=== PATIENT | male | born 1945 | race Caucasian/White ===

== ENCOUNTER → 2021-01-29 10:09 | Outpatient (CLI) | payer MEDICARE, SELFPAY | PROVIDERS: Visit Provider Urology | DX: Z12.5 Encounter for screening for malignant neoplasm of prostate (principal) | CPT/HCPCS: 36415; 84153; G0103 ==

== ENCOUNTER 2021-07-11 05:40 | Day surgery (SDC) | payer MEDICARE, SELFPAY ==
[2021-07-11 06:36] VITALS: BP 142/59; PULSE 69; RESP 16; TEMP 36.3; O2SAT 97; BMI 33.7
[2021-07-11] MEDS: Lactated Ringers 1,000 ML 30 ML IV (06:49)
--- NOTE | 2021-07-11 08:00 | PROS_PTH ---
PATIENT: ASHLEY LOPEZ LOC: [facility] – [place] U#:[id number] AGE/SX: 76/M ROOM: RE07/11/[address]: Dr. Josafat Nolasco MD : 1945 BED: DIS: 07/11/2021 SPEC #: [id number] RECD: 07/11/21 09:37 STATUS: GINA RINCON #: [id number] RADHA: 07/11/21 08:[address]: Josafat Nolasco DEPT: SURGICAL PATHOLOGY RECD BY: Lynn Hudson ENTERED: 07/11/21 11:05 SP TYPE: TURP OTHR DR: Dr. Lowell Johnson MD Tissues: Prostate, NOS Procedures: Surgery Specimen Level IV HEADER OPERATION: Cysto, TUR prostate, [facility] PRE-OP DIAGNOSIS: Urinary retention TISSUE SUBMITTED: Prostate tissue MICROSCOPIC DIAGNOSIS Prostate, transurethral resection: Benign nodular hyperplasia, glandular and stromal types. Benign urothelium with associated mild chronic inflammation. AM:elio 07/12/2021 MICROSCOPIC DESCRIPTION Slides are reviewed. GROSS DESCRIPTION Received is one container labeled with the patient's name and designated prostate tissue. The specimen consists of multiple irregular fragments of pink-carlisle, rubbery, soft tissue that in aggregate weigh 13.7 gm and measure in aggregate 5 x 4.5 x 2 cm. Family Service Assistant tissue is submitted in ten cassettes. / SJ:elio 07/11/2021 TC:3 CPT: 30200
--- NOTE | 2021-07-11 09:10 | PCM.HP.STD ---
HPI - General HPI Narrative ASHLEY LOPEZ, is a 76 M who presents for a turp for retention of urine. PFSH Medical History (Updated 07/04/21 @ 09:15 by Sandra Charles) Back pain Cardiology follow-up encounter CPAP (continuous positive airway pressure) dependence History of heart attack History of stress test Hypertension Sleep apnea Home Medications amlodipine 10 mg PO DAILY 07/04/21 [History Last Taken Unknown] ascorbic acid (vitamin C) [Vitamin C] 500 mg PO DAILY 07/04/21 [History Last Taken Unknown] atorvastatin 40 mg PO DAILY 07/04/21 [History Last Taken Unknown] cyanocobalamin (vitamin B-12) [Vitamin B-12] 1,000 mcg PO DAILY 07/04/21 [History Last Taken Unknown] duloxetine 30 mg PO BID 07/04/21 [History Last Taken Unknown] metoprolol tartrate 25 mg PO BID 07/04/21 [History Last Taken Unknown] ciprofloxacin HCl [Cipro] 500 mg PO BID #10 tab 07/11/21 [Rx Last Taken Unknown] Allergy/AdvReac Type Severity Reaction Status Date / Time Penicillins [PCN] Allergy Other Verified 07/11/21 06:27 Surgical History (Updated 07/04/21 @ 09:15 by Sandra Charles) History of bunionectomy History of cardiac catheterization History of carotid endarterectomy History of open heart surgery Hx laparoscopic cholecystectomy Social History Smoking Status: Never smoker Vital Signs Vital Signs Vital Signs: 07/11/21 06:36 Temperature 97.4 F L Temperature Source Temporal Pulse Rate 69 Respiratory Rate 16 Respiratory Pattern Normal Blood Pressure 142/59 H Blood Pressure Mean 86 Blood Pressure Source Monitor Blood Pressure Position Semi-Fowlers Blood Pressure Location Right Arm Pulse Ox 97 Oxygen Delivery Method Room Air Weight Weight: 89 kg Body Mass Index (BMI) 33.7
--- NOTE | 2021-07-11 09:11 | DCINST_ITS ---
Discharge Instructions Diet Discharge Diet: No restrictions Activity Discharge Activity: May Not Drive (while taking narcotic pain medications.) Dressing / Incision Call your doctor if you observe: Fever of 101 or Higher Catheter: Santiago to leg bag and Santiago to large bag Drain: [place] Follow Up Care Please Follow Up With: Josafat Nolasco MD When: Call [phone] for an appointment Test Results: Test results from this visit will be discussed in further detail at your follow-up appointment, if applicable. Discharge Plan Admission Primary Reason for Your Visit: TURMorales Attending Provider: Josafat Nolasco Primary Care Provider: Lowell Johnson Discharge Orders/Prescriptions Prescriptions: New ciprofloxacin HCl [Cipro] 500 mg tablet 500 mg PO BID Qty: 10 RF: 0 Continued atorvastatin 40 mg tablet 40 mg PO DAILY RF: 0 cyanocobalamin (vitamin B-12) [Vitamin B-12] 1,000 mcg Tablet 1,000 mcg PO DAILY RF: 0 ascorbic acid (vitamin C) [Vitamin C] 500 mg Tablet 500 mg PO DAILY RF: 0 amlodipine 10 mg tablet 10 mg PO DAILY RF: 0 metoprolol tartrate 25 mg tablet 25 mg PO BID RF: 0 duloxetine 30 mg capsule,delayed release(DR/EC) 30 mg PO BID RF: 0 Discontinued aspirin 325 mg Tablet 325 mg PO DAILY RF: 0 tamsulosin 0.4 mg capsule 0.4 mg PO DAILY RF: 0 finasteride 5 mg tablet 5 mg PO DAILY RF: 0 Referrals / Follow Up: Lowell Johnson MD [Primary Care Provider] - Josafat Nolasco MD [STAFF PHYSICIAN] - Disposition Disposition (needs filled in before D/C Order can be placed): Home, Self Care
--- NOTE | 2021-07-11 09:11 | OP.PCM_ITS ---
Report of Operation Date of Procedure: 07/11/21 Pre-Operative Diagnosis: bph with retention of urine Post-Operative Diagnosis: same Surgery/Procedure Performed:: TURP Description of Surgical Findings:: In the preoperative setting I discussed with the patient how the surgery would be done with expect afterwards. We discussed how a prostate resection is done and we discussed the risk of the surgery including, bleeding, infection, retrograde ejaculation, changes with ejaculation or intercourse,. We discussed the possibility that the resection of the prostate may not alleviate his urinary symptoms. We discussed the small risk of developing scar tissue along the urethral channel and strictures. We also discussed the chance of the prostate could grow back and he may need further surgery or treatment in the future for prostate problems. Patient was taken back to the operating room, timeout procedure was performed, he was identified and marked and placed on the operating room table. He underwent general anesthesia. He was placed in dorsolithotomy position. Penis and testicles were prepped and draped in usual sterile fashion. Went into the bladder using the visual obturator with a resectoscope. Once inside the bladder identified the right and left ureteral orifice. I then identified the prostate and the anatomy of the prostate. I marked out the area of the sphincter and the verumontanum was identified. I then proceeded with the prostate resection first resected the median lobe. And then resected the right lobe of the prostate. Then to resect the left lobe of the prostate. I then resected the apical tissue of the prostate. This was a complete resection of all obstructive tissue to improve voiding and relieve obstruction. I then made sure that there was no injury to the sphincter or the verumontanum was still intact. At the end of the resection all the chips were Ellik out of the bladder. I then identified the left and right ureteral orifice and these were confirmed to be in good position and effluxing and not injured. The resectoscope was removed, a 20 Kinyarwanda catheter was placed placed. And the urine was fairly light pink color and draining normally. He was taken back to the PACU in good condition. Surgeon: racheal Type of Anesthesia: General Drains: 20 fr ulloa Admit VTE Documentation VTE Present on Admission: No VTE Mechan Device Prophylaxis: SCD's VTE Pharm Prophylaxis ordered?: No Reason prophylaxis not ordered:: Treatment Not Indicated
[2021-07-11 09:18] VITALS: BP 126/59; BP 142/59; PULSE 65; RESP 16; TEMP 36.1; O2SAT 97
[2021-07-11 09:30] VITALS: BP 142/59; BP 144/60; PULSE 70; RESP 16; O2SAT 98
[2021-07-11] MEDS: Lactated Ringers 1,000 ML 100 ML IV (09:33)
[2021-07-11 09:45] VITALS: BP 141/62; BP 142/59; PULSE 70; RESP 16; O2SAT 91
[2021-07-11 09:50] VITALS: BP 131/65; BP 142/59; PULSE 68; RESP 16; TEMP 35.7; O2SAT 92
[2021-07-11 10:19] VITALS: BP 130/60; BP 142/59; PULSE 70; RESP 18; TEMP 36.1; O2SAT 94
== END 2021-07-11 23:59 | disposition home or self-care (01) ==
LOC: SDC 05:44 → AC 05:44
PROVIDERS: PCP Family Medicine; Referring Provider Urology; Visit Provider Urology
PROC: (CPT 52601; principal; 2021-07-11 07:50)
DX: N40.1 Benign prostatic hyperplasia with lower urinary tract symptoms (principal); N13.8 Other obstructive and reflux uropathy; R33.8 Other retention of urine; I10 Essential (primary) hypertension; I44.4 Left anterior fascicular block; I25.10 Atherosclerotic heart disease of native coronary artery without angina pectoris; I65.23 Occlusion and stenosis of bilateral carotid arteries; I25.2 Old myocardial infarction; G47.30 Sleep apnea, unspecified; Z95.1 Presence of aortocoronary bypass graft; Z79.82 Long term (current) use of aspirin; Z79.899 Other long term (current) drug therapy
CPT/HCPCS: 52601; 00914; 88305; J7120; J2405

== ENCOUNTER → 2022-12-02 | Outpatient (CLI) | payer MEDICARE, SELFPAY ==
--- NOTE | 2022-12-02 08:11 | CDU_ITS ---
Reason For Study: Carotid Stenosis Rt. Velocities/BP Lt. Velocities/BP Prox CCA 58/8 cm/sec. Prox CCA 81/15 cm/sec. Mid CCA 65/10 cm/sec. Mid CCA 81/18 cm/sec. Dist CCA 62/12 cm/sec. Dist CCA 70/15 cm/sec. Prox ICA 138/27 cm/sec. Prox ICA 100/23 cm/sec. Mid ICA 131/23 cm/sec. Mid ICA 93/23 cm/sec. Dist ICA 99/18 cm/sec. Dist ICA 88/24 cm/sec. Rt. ICA/CCA = 2.1. Lt. ICA/CCA = 1.2. Prox ECA 95/6 cm/sec. Prox ECA 114/8 cm/sec. Rt. Vert. 59/8 cm/sec. Lt. Vert. 43/8 cm/sec. Right Extracranial There is intimal thickening but no significant atherosclerotic plaque noted in the right common carotid artery. There is heterogeneous, irregular atherosclerotic plaque noted in the right internal carotid artery. There is intimal thickening but no significant atherosclerotic plaque noted in the right external carotid artery. Antegrade flow is noted in the right vertebral artery. Left Extracranial There is heterogeneous, smooth atherosclerotic plaque noted in the left common carotid artery. There is heterogeneous, irregular atherosclerotic plaque noted in the left internal carotid artery. There is heterogeneous, irregular atherosclerotic plaque noted in the left external carotid artery. Antegrade flow is noted in the left vertebral artery. Procedure Carotid Duplex [id number]. This is a Carotid Duplex examination using B-mode, color flow and specral Doppler. Exam performed in department. VL/Carotid Duplex Ultrasound Interpretation Summary Moderate (50-69%) stenosis right extracranial internal carotid. Mild (<50%) stenosis left extracranial internal carotid. Patent and antegrade vertebrals bilaterally. Ordering Physician: Canelo Garcia Referring Physician: Brooks Johnson Performed By: Breonna Clark, RDCS, RVT
== END | disposition home or self-care (01) ==
LOC: CVS 08:11
PROVIDERS: PCP Family Medicine; Referring Provider Internal Medicine Cardiovascular Disease; Visit Provider Internal Medicine Cardiovascular Disease
DX: I25.10 Atherosclerotic heart disease of native coronary artery without angina pectoris (principal); I65.23 Occlusion and stenosis of bilateral carotid arteries
CPT/HCPCS: 93880

== ENCOUNTER → 2022-12-09 | Outpatient (CLI) | payer MEDICARE, SELFPAY ==
--- NOTE | 2022-12-09 06:51 | ECHOCS_ITS ---
Reason For Study: CAD/ASHD Procedure This was a 2D Doppler, Color Flow transthoracic echocardiogram. The study was technically difficult. Contrast injection was performed. Exam performed in department. Left Ventricle Normal LV size. Left ventricular systolic function is normal. The estimated ejection fraction is 60 %. Stage 1 diastolic dysfunction. No regional wall motion abnormalities noted. Right Ventricle Normal RV size. Normal systolic function. Atria Normal left atrium. Normal right atrium. Tricuspid Valve Normal tricuspid valve. Mild to moderate (1-2+) tricuspid valve insufficiency. Pulmonary artery systolic pressure is 42 mmHg. Pulmonic Valve Normal pulmonic valve. Great Vessels Normal aortic root. The pulmonary artery is normal size. Normal inferior vena cava. Pericardium/Pleural No pericardial effusion. Medication 22 gauge I.V. with prn adaptor inserted into right arm. Diluted definity 2ml given slow IV push to enhance endocardial definition. MMode/2D Measurements & Calculations LVIDd: 4.4 cm IVSd: 0.81 cm LA dimension: 4.4 cm LVIDs: 3.2 cm LVPWd: 0.81 cm FS: 27.3 % LAV(MOD-sp4): 53.1 ml LA A4 area: 18.3 cm2 RA A4 area: 17.7 cm2 Time Measurements MV dec time: 0.14 sec Doppler Measurements & Calculations MV E max brooks: 70.9 cm/sec Lat Peak E' Brooks: 10.6 cm/sec Med Peak E' Brooks: 6.3 cm/sec MV A max brooks: 84.2 cm/sec E/E' lat: 6.7 E/E' med: 11.3 MV E/A: 0.84 MV V2 max: 116.5 cm/sec MV P1/2t max brooks: 94.1 cm/sec Ao V2 max: 125.3 cm/sec MV max P.4 mmHg MV P1/2t: 61.8 msec Ao max P.3 mmHg MV V2 mean: 55.3 cm/sec Ao V2 mean: 83.8 cm/sec MV mean P.5 mmHg MV dec slope: 446.4 cm/sec2 Ao mean P.2 mmHg MV V2 VTI: 33.9 cm MVA(P1/2t): 3.6 cm2 Ao V2 VTI: 23.9 cm AV (velocity ratio): 0.90 LV V1 max: 101.8 cm/sec PA V2 max: 123.5 cm/sec TR max brooks: 310.0 cm/sec LV V1 max P.1 mmHg PA V2 mean: 76.6 cm/sec TR max P.4 mmHg LV V1 mean P.1 mmHg LV V1 mean: 68.8 cm/sec LV V1 VTI: 21.6 cm ECHO/Echo Complete W/ Contrast Interpretation Summary Normal LV size. Left ventricular systolic function is normal. The estimated ejection fraction is 60 %. Stage 1 diastolic dysfunction. Pulmonary artery systolic pressure is 42 mmHg. Contrast injection was performed. Ordering Physician: Canelo Garcia Referring Physician: Canelo Garcia Performed By: Nehemiah Fernandez RCS
--- NOTE | 2022-12-09 12:17 | STRESSREP ---
Stress Test Report Exercise myocardial perfusion stress test. 77-year-old man with a history of coronary artery disease Stress protocol: Resting EKG demonstrates normal sinus rhythm with a rate of 67 bpm resting blood pressure is 152/80 mmHg. right bundle branch block is noted. The patient exercised according to the regular Jar[place] protocol for a total duration of 3 minutes and 9 seconds attaining a maximum heart rate of 134 bpm which was 92% of maximum predicted heart rate; the maximum workload was 4.9 metabolic equivalents. At rest there were no ST or T wave changes noted to suggest ischemia and at peak exercise ST elevation was noted in aVR in lead V1 and [address] depression noted in leads II and aVF V5 and V6 suggestive of ischemia. Frequent premature ventricular complexes were noted. No clinical angina was noted the test was terminated due to the target heart rate being achieved/fatigue as well as shortness of breath. The peak blood pressure was 210/62 mmHg. Rate-pressure product was 23,900. Myocardial perfusion protocol. 14.2 mCi of technetium 99m sestamibi was injected at rest. The patient exercised according to regular Jar[place]o protocol for total duration of 3 minutes and 9 seconds and at peak exercise 44.1 mCi of technetium 99m sestamibi was injected stress images were obtained stress and rest images were reconstructed in comparing the short axis vertical long and horizontal long axis. Gated images were also obtained. Perfusion SPECT analysis: Review of the stress images demonstrate normal uptake of tracer noted in all areas of the myocardium except for the inferior wall with reduced perfusion in the moderate sized zone. The resting images similarly demonstrate normal uptake of tracer noted in all areas of the myocardium. The above is suggestive of mid inferior ischemia. Gated SPECT analysis: The gated ejection fraction is 60%. Conclusion: Abnormal exercise myocardial perfusion stress test at a low workload with inferior ischemia present Preserved ejection fraction.
== END | disposition home or self-care (01) ==
PROVIDERS: PCP Family Medicine; Referring Provider Internal Medicine Cardiovascular Disease; Visit Provider Internal Medicine Cardiovascular Disease
DX: I25.10 Atherosclerotic heart disease of native coronary artery without angina pectoris (principal)
CPT/HCPCS: 78452; 93017; 93306; A9500; Q9957; A4216; C8929

== ENCOUNTER 2022-12-17 06:34 | Day surgery (SDC) | payer MEDICARE, SELFPAY ==
[2022-12-13 13:30] LABS: Absolute Lymphocyte Count 1.83 X10^3/uL (0.83-4.51); Absolute Neutrophil Count 3.6 X10^3/uL (2.0-7.7); Basophil# 0.02 X10^3/uL; Basophil% 0.3 % (0-1); Eosinophil# 0.06 X10^3/uL; Hematocrit 44.2 % (40-54); Hemoglobin 14.2 g/dL (13.0-16.5); Lymphocyte # 1.83 X10^3/ul (0.83-4.51); Lymphocyte % 30.2 % (19-41); Mean Corp Hgb Conc 32.1 g/dL (32-36); Mean Corpuscular Hgb 29.2 pg (27.0-32.0); Mean Corpuscular Volume 90.8 fL (80-94); Mean Platelet Vol. 9.6 fl (6.2-12.0); Monocyte# 0.58 X10^3/uL; Monocyte% 9.6 % (0-10); NRBC Flagged by Analyzer 0 % (0-5); Neutrophil # 3.55 X10^3/uL (2.7-7.7); Neutrophil % 58.6 % (47-70); Platelet Count 171 K/mm3 (150-450); RBC Distribution Width CV 11.9 % (11.6-14.6); RBC Distribution Width SD 39.6 fl (35.1-43.9); Red Blood Count 4.87 M/mm3 (4.6-6.2); White Blood Count 6.1 K/mm3 (4.4-11.0)
[2022-12-13 13:41] LABS: Prothrombin Time (Protime)PT. 13.3 SECONDS (11.7-14.9)
[2022-12-13 13:43] LABS: Partial Thromboplast Time 31.3 Seconds (24.1-36.2)
[2022-12-13 13:59] LABS: Anion Gap 6 (5-15); BUN 23 mg/dL (7-18); BUN/Creat Ratio 17.8 RATIO (10-20); Calcium,Total 8.8 mg/dL (8.5-10.1); Chloride 106 mmol/L (98-107); Creatinine, Serum 1.29 mg/dL (0.70-1.30); EST Glomerular Filtration Rate 58 mL/min (>60); Est Glom Filt Rate - Afr Amer 70 mL/min (>60); Glucose 91 mg/dL (74-106); Potassium 4.3 mmol/L (3.5-5.1); Sodium Level 140 mmol/L (136-145)
[2022-12-16 07:17] VITALS: BMI 34.8
--- NOTE | 2022-12-17 09:04 | CL.D_ITS ---
Patient Name: ASHLEY LOPEZ Study Date: 12/17/2022 Performing: Canelo Garcia MD Ht: 64 inches 162.56 cm : 1945 Wt: 203 lbs 92.08 kg Age: 77 Gender: male BSA: 1.97 PROCEDURE(S) PERFORMED DC04-([id number])LHC/COR/CABG CLINICAL PROFILE AND INDICATIONS Indications: Suspected CAD Heart Failure: None Stress/Imaging Date: 11/29/22Stress Test with SPECT MPI: Positive Intermediate Risk CAD Presentations: Other: sob CONCLUSIONS Severe coronary artery disease with patent DEGROOT to the LAD severely diseased circumflex artery totally occluded right coronary artery. Saphenous vein graft to the right coronary artery is also noted to be effectively totally occluded. With preserved ejection fraction. RECOMMENDATIONS Medical therapy DESCRIPTION OF PROCEDURE The patient arrived to the procedure lab. The risks and benefits of the procedure as well as a full description of our services here and current unavailability of surgical backup were fully explained to the patient and/or their significant other prior to the catheterization. The Timeout was completed, verifying the correct patient and procedure. The patient's procedural site was prepped and draped in the usual fashion. Local anesthetic was given subcutaneously to left radial region with Lidocaine 2%. Using a modified Seldinger technique, arterial access was obtained via the left radial artery, a 6Fr sheath was inserted. Left internal mammary artery graft to the LAD selective angiography was performed in multiple views using a 5 Fr. IM catheter. Left Coronary Artery selective angiography was performed in multiple views using a 5 Fr. JL4 catheter. Right Coronary Artery selective angiography was then performed in multiple views using a 5 Fr. 3DRC (Angel) catheter. Saphenous Vein graft to the RCA selective angiography was performed in multiple views using a 5 Fr. AR MOD catheter.The arterial sheath was pulled and a TR Band was applied for hemostasis CORONARY ANGIOGRAPHY DOMINANCE: Right Dominant LEFT HEART ASSESSMENT Left Ventricular Ejection Fraction: by Echo 60 % Normal LV wall motion Normal Left Ventricular systolic function LEFT MAIN: Mild calcification, No significant disease noted LEFT ANTERIOR DESCENDING ARTERY: Severely diseased vessel with proximal subtotal occlusion and then mid total occlusion CIRCUMFLEX ARTERY: Severely diseased vessel with normal proximal segment giving off a first small bifurcating obtuse marginal branch and then a subtotal occlusion and then a second bifurcating obtuse marginal branch noted. Distal faint filling is noted with some [id number] collaterals. RIGHT CORONARY ARTERY: PROX RCA: is occluded GRAFTS: DEGROOT graft to the Mid LAD is patent Saphenous Vein graft to the 1st Diagonal is totally occluded Saphenous Vein graft to the RCA The proximal bed is patent and then it is subtotally occluded reconstitutes and then is completely occluded. COLLATERAL FLOW: Collateral flow from Left to Right COMPLICATIONS No Complications PROCEDURE MEDICATIONS Fentanyl 50 mcg IV Versed 1 mg IV Versed 1 mg IV Heparin given IA 12/17/2022 08:19:19 Verapamil 2.5mg, Ntg 100mcgs, 3000 units of Heparin given IA 12/17/2022 08:19:19 SUMMARY OF HEMODYNAMIC DATA Time AIR REST ECG 06:53:49 AO 138/68 (95) SA 08:17:15 09:00:41 Signed By Canelo Garcia MD On 12/17/2022 09:03:26 Canelo Garcia MD
== END 2022-12-17 10:25 | disposition home or self-care (01) ==
LOC: CLSP 06:37
PROVIDERS: PCP Family Medicine; Referring Provider Internal Medicine Cardiovascular Disease; Visit Provider Internal Medicine Cardiovascular Disease
DX: I25.10 Atherosclerotic heart disease of native coronary artery without angina pectoris (principal); R06.02 Shortness of breath; Z95.1 Presence of aortocoronary bypass graft; E78.5 Hyperlipidemia, unspecified; I10 Essential (primary) hypertension; I65.29 Occlusion and stenosis of unspecified carotid artery
CPT/HCPCS: 36415; 80048; 85025; 85610; 85730; 93455; 99152; 99153; C1894; J7040; Q9967; C1769

== ENCOUNTER → 2023-03-11 | Outpatient (CLI) | payer MEDICARE, SELFPAY ==
--- NOTE | 2023-03-11 16:08 | CT_ITS ---
EXAM: CT LEFT UPPER EXTREMITY WITHOUT INTRAVENOUS CONTRAST CLINICAL INDICATION: injury TECHNIQUE: Helically acquired images were obtained of the left upper extremity without intravenous contrast. 2-D reformats were performed by the technologist. This CT exam was performed using one or more of the following dose reduction techniques: automated exposure control, adjustment of the mA and/or kV according to patient size, and/or use of iterative reconstruction technique. COMPARISON: No relevant prior studies available. FINDINGS: BONES/JOINTS: There is a fracture of the proximal humerus. The humeral head is located in the glenoid fossa. Preservation of the joint space. No sclerotic or destructive changes. SOFT TISSUES: Unremarkable. No soft tissue swelling or gas. No radiopaque foreign body. CT/Extremity Upper without Contra IMPRESSION: Fracture of the proximal humerus. Electronically Signed: Santiago Iqbal MD at 17:13 EDT ,
== END | disposition home or self-care (01) ==
LOC: CT 16:03
PROVIDERS: PCP Family Medicine; Referring Provider Orthopaedic Surgery Sports Medicine; Visit Provider Orthopaedic Surgery Sports Medicine
DX: S42.202A Unspecified fracture of upper end of left humerus, initial encounter for closed fracture (principal)
CPT/HCPCS: 73200

== ENCOUNTER 2023-03-18 05:19 | Day surgery (SDC) | payer MEDICARE, SELFPAY ==
--- NOTE | 2023-03-17 07:36 | EKG12_ITS ---
Test Reason : PRE OP Blood Pressure : / mmHG Vent. Rate : 080 BPM Atrial Rate : 080 BPM P-R Int : 112 ms QRS Dur : 130 ms QT Int : 402 ms P-R-T Axes : 013 -58 029 degrees QTc Int : 463 ms Sinus rhythm with Premature atrial complexes Left axis deviation Right bundle branch block Abnormal ECG Confirmed by ANITHA HOLGUIN, TIGRE ([id number]), newspaper editor managing ADOLFO RICHTER ([id number]) on 03/18/2023 1:51:03 PM Referred By: Dustin Mosqueda Confirmed By:ERUM WELSH MD
[2023-03-17 08:17] LABS: Absolute Lymphocyte Count 1.49 X10^3/uL (0.83-4.51); Absolute Neutrophil Count 4.2 X10^3/uL (2.0-7.7); Basophil# 0.01 X10^3/uL; Basophil% 0.2 % (0-1); Eosinophil# 0.13 X10^3/uL; Hemoglobin 13.6 g/dL (13.0-16.5); Lymphocyte # 1.49 X10^3/ul (0.83-4.51); Lymphocyte % 22.8 % (19-41); Mean Corp Hgb Conc 32.4 g/dL (32-36); Mean Corpuscular Hgb 29.7 pg (27.0-32.0); Mean Corpuscular Volume 91.7 fL (80-94); Monocyte# 0.65 X10^3/uL; NRBC Flagged by Analyzer 0 % (0-5); Neutrophil # 4.21 X10^3/uL (2.7-7.7); Neutrophil % 64.4 % (47-70); Platelet Count 241 K/mm3 (150-450); RBC Distribution Width CV 12.4 % (11.6-14.6); RBC Distribution Width SD 40.9 fl (35.1-43.9); Red Blood Count 4.58 M/mm3 (4.6-6.2); White Blood Count 6.5 K/mm3 (4.4-11.0)
[2023-03-17 08:29] LABS: Anion Gap 4 (5-15); BUN 24 mg/dL (7-18); BUN/Creat Ratio 20.3 RATIO (10-20); Chloride 103 mmol/L (98-107); Creatinine, Serum 1.18 mg/dL (0.70-1.30); EST Glomerular Filtration Rate 64 mL/min (>60); Est Glom Filt Rate - Afr Amer 77 mL/min (>60); Glucose 107 mg/dL (74-106); Potassium 4.2 mmol/L (3.5-5.1); Sodium Level 138 mmol/L (136-145)
[2023-03-17 08:35] LABS: Magnesium 2.5 mg/dL (1.6-2.6)
[2023-03-17 08:39] LABS: Prothrombin Time (Protime)PT. 13.6 SECONDS (11.7-14.9)
[2023-03-17 08:40] LABS: Partial Thromboplast Time 33.9 Seconds (24.1-36.2)
[2023-03-17 09:35] LABS: Hemoglobin A1c 5.6 % (3.8-5.6)
[2023-03-18] VITALS (8 sets, daily range): BP systolic 132–152; BP diastolic 62–74; PULSE 59–74; RESP 15–18; TEMP 36.2–36.6; O2SAT 93–100; BMI 31.6
[2023-03-18 04:07] LABS: Fructosamine 205 umol/L (0-285)
[2023-03-18] MEDS: Gabapentin 600 MG Tablet PO (05:54)
[2023-03-18] MEDS: Acetaminophen 500 MG Tablet 1000 MG PO (05:54)
[2023-03-18] MEDS: Magnesium 1 GM over 15 mins IV (06:20)
[2023-03-18] MEDS: Lactated Ringers 1,000 ML 15 ML IV (06:34)
[2023-03-18 06:43] LABS: Bedside Glucose 129 mg/dL (74-106)
--- NOTE | 2023-03-18 07:06 | PCM.HP.STD ---
HPI - General HPI Narrative ASHLEY LOPEZ, is a 77 M who presents for left reverse shoulder arthroplasty for fracture. No changes to H and P. Plan for block. RAB discussed, narcotic counselling. Left shoulder marked. OK to proceed. Sling after, dc home if able otherwise admit overnight. [facility] [address] [place] [id number] OFFICE VISIT Date of Service: 03/13/23 MR#: [id number] Acct: [id number] Name: ASHLEY LOPEZ Rep #: [id number] : 1945 Provider: Dr. Dustin Mosqueda MD Age/Sex: 77/M Location: [facility] [place] Status: Signed Intake Vital Signs 03/11/2314:53 Height 5 ft 6 in Weight: 200 lb BMI 32.3 Intake Visit Reasons: LEFT SHOULDER Chief Complaint: left shoulder Is patient in pain?: Yes Pain scale (1-10): 3 Allergies Penicillins [PCN] Allergy (Verified 03/13/23 09:08) Other Medications amlodipine 10 mg tablet 10 mg PO DAILY 07/04/21 [History Confirmed 03/13/23] atorvastatin 40 mg tablet 40 mg PO DAILY 07/04/21 [History Confirmed 03/13/23] duloxetine 30 mg capsule,delayed release 30 mg PO BID 07/04/21 [History Confirmed 03/13/23] metoprolol tartrate 25 mg tablet 25 mg PO BID 07/04/21 [History Confirmed 03/13/23] acetaminophen 500 mg capsule 500 mg PO Q6H PRN Pain 10/11/22 [History Confirmed 03/13/23] aspirin 325 mg tablet,delayed release 325 mg PO DAILY 10/11/22 [History Confirmed 03/13/23] cholecalciferol (vitamin D3) 50 mcg (2,000 unit) capsule 50 mcg PO DAILY 10/11/22 [History Confirmed 03/13/23] cyanocobalamin (vitamin B-12) 5,000 mcg sublingual tablet 5,000 mcg sublingual DAILY 10/11/22 [History Confirmed 03/13/23] docusate sodium 100 mg capsule 100 mg PO BID PRN Constipation 10/11/22 [History Confirmed 03/13/23] donepezil 5 mg tablet 5 mg PO QHS 10/11/22 [History Confirmed 03/13/23] magnesium 200 mg tablet 200 mg PO DAILY 10/11/22 [History Confirmed 03/13/23] melatonin 5 mg tablet 5 mg PO HS PRN Insomnia 10/11/22 [History Confirmed 03/13/23] omeprazole 40 mg capsule,delayed release 40 mg PO DAILY 10/11/22 [History Confirmed 03/13/23] oxycodone-acetaminophen 5 mg-325 mg tablet (Percocet) 1 tab PO Q4H PRN pain 5 days #14 tabs 03/11/23 [Rx Confirmed 03/13/23] PFSH Medical History Abnormal stress test Atherosclerosis of coronary artery of [place] heart without angina pectoris Back pain BPH (benign prostatic hyperplasia) Cardiology follow-up encounter Chronic idiopathic constipation Closed fracture of left proximal humerus CPAP (continuous positive airway pressure) dependence Depression GERD (gastroesophageal reflux disease) History of heart attack History of stress test Hyperlipidemia Hypertension Insomnia Mild cognitive impairment CATIE (obstructive sleep apnea) Peripheral neuropathy Renal insufficiency Surgical History Failed CABG (coronary artery bypass graft) History of bunionectomy History of cardiac catheterization History of carotid endarterectomy History of carpal tunnel surgery History of coronary artery bypass graft x 3 (~08/02/09) History of open heart surgery Hx laparoscopic cholecystectomy (~05/30/21) Family History Mother DiabetesFather Heart disease Social History Smoking Status: Never smoker alcohol intake: never HPI LEFT SHOULDER Details: Parts of this documentation were recorded by a scribe, this documentation accurately reflects the service provided and the decisions made by me, Dr. Dustin Mosqueda MD 03/13/23 0906. ASHLEY LOPEZ is a 77 year old M here today for follow-up of left shoulder CT scan for decision making and surgical planning left proximal humerus fracture. Ortho Exam General General: Yes no acute distress Neurologic: Yes alert and Yes oriented x3 Psychologic: Yes reasonable and appropriate Right Wrist/Hand Skin/Wound: Yes Swelling and No Ecchymosis Left Wrist/Hand Skin/Wound: Yes CDI, Yes Swelling, No Ecchymosis, Yes nail intact and Yes capillary refill normal Motor: EPL: 5, FDP-2: 5, 1st Dorsal Interosseous: 5 and APB: 5 Sensation: Radial: I, Ulnar: I and Median: I Left Elbow Skin/Wound: Yes CDI, No eccymosis, No erythema and Yes Swelling Motor: Elbow Extension: 5 and Elbow Flexion: 5 Left Shoulder Skin/Wound: Yes CDI, Yes ecchymosis, No erythema and Yes swelling Testing: Yes TTP Biceps and No TTP AC Joint SHOULDER: closed, normal motor and sens to axillary nerve. Supplemental Info [facility] Imaging Services [address] [place] [address] Extremity Upper without Contra MR#: [id number] Acct: [id number] Name: ASHLEY LOPEZ Rep #: [id number] : 1945 M 77 From: Santiago Iqbal MD PCP: Dr. Lowell Johnson MD Status: REG CLI Study: Extremity Upper without Contra Date of Exam: 03/11/23 Exam# [id number] Ordering Dr: Dustin Mosqueda MD EXAM: CT LEFT UPPER EXTREMITY WITHOUT INTRAVENOUS CONTRAST CLINICAL INDICATION: injury TECHNIQUE: Helically acquired images were obtained of the left upper extremity without intravenous contrast. 2-D reformats were performed by the technologist. This CT exam was performed using one or more of the following dose reduction techniques: automated exposure control, adjustment of the mA and/or kV according to patient size, and/or use of iterative reconstruction technique. COMPARISON: No relevant prior studies available. FINDINGS: BONES/JOINTS: There is a fracture of the proximal humerus. The humeral head is located in the glenoid fossa. Preservation of the joint space. No sclerotic or destructive changes. SOFT TISSUES: Unremarkable. No soft tissue swelling or gas. No radiopaque foreign body. CT/Extremity Upper without Contra IMPRESSION: Fracture of the proximal humerus. Electronically Signed: Santiago Iqbal MD at 17:13 EDT , agree, 100% displaced, fracture line into the GT and slightly lower than the LT. Coding Level of Care Code Off vis,est,level 3 Diagnoses Closed fracture of left proximal humerus S42.202A Assessment and Plan Assessment and Plan (1) Closed fracture of left proximal humerus: Status: Acute Plan: 77-year-old man with a left proximal humerus fracture. This is 100% displaced. There also appears to be a fracture line extending into the articular surface and involving the greater tuberosity as well as some comminution and discontinuity of the medial calcar segment. Overall this would be at high risk of nonunion with open reduction internal fixation. I think the patient would have quite poor function with nonoperative management in a sling given the amount of displacement and shortening. I think given his age, fracture characteristics the best option to maintain reasonable functional shoulder would be a reverse total shoulder arthroplasty. Explained the pros cons risk and benefits of each of these methods of treatment to him. However, with a reverse shoulder arthroplasty there is risk of fracture loosening instability weakness damage to blood vessels nerves overall complication rate may be up to 20% for reverse for fracture but overall that would be my recommendation in this setting. He understands wishes to proceed with left reverse total shoulder arthroplasty. We will get a cardiac clearance he has had a bypass in the past is not on anticoagulants. I will meet with the device rep tomorrow for surgical planning and try to get the case done sometime next week. This will be a plan to be cemented with a fracture platform stem as well. Pros and cons risks and benefits were discussed with the patient including but not limited to infection, pain, stiffness, bleeding, damage to surrounding structures, neurovascular injury, recurrence or retear, failure or wear of hardware or fixation, instability, fracture, deep vein thrombosis and pulmonary embolism, anesthetic risks, , patient dissatisfaction, need for further surgery and other risks. Patient understood and wished to proceed with surgery, and signed the informed consent documentation. [facility] Medical History (Updated 03/14/23 @ 13:44 by Reyna Miles) Abnormal stress test Atherosclerosis of coronary artery of [place] heart without angina pectoris BPH (benign prostatic hyperplasia) Cardiology follow-up encounter Chronic idiopathic constipation Closed fracture of left proximal humerus CPAP (continuous positive airway pressure) dependence Depression Dietary restriction GERD (gastroesophageal reflux disease) History of echocardiogram History of edema History of heart attack History of stress test Hyperlipidemia Hypertension Insomnia Mild cognitive impairment Non-smoker CATIE (obstructive sleep apnea) Peripheral neuropathy Postoperative urinary retention Renal insufficiency Wears glasses Home Medications amlodipine 10 mg tablet 10 mg PO DAILY 07/04/21 [History Last Taken Unknown] atorvastatin 40 mg tablet 40 mg PO DAILY 07/04/21 [History Last Taken Unknown] duloxetine 30 mg capsule,delayed release 30 mg PO BID 07/04/21 [History Last Taken Unknown] metoprolol tartrate 25 mg tablet 25 mg PO BID 07/04/21 [History Last Taken Unknown] acetaminophen 500 mg capsule 500 mg PO Q6H PRN Pain 10/11/22 [History Last Taken Unknown] cyanocobalamin (vitamin B-12) 5,000 mcg sublingual tablet 5,000 mcg sublingual DAILY 10/11/22 [History Last Taken Unknown] docusate sodium 100 mg capsule 100 mg PO BID PRN Constipation 10/11/22 [History Last Taken Unknown] donepezil 5 mg tablet 5 mg PO QHS 10/11/22 [History Last Taken Unknown] magnesium 200 mg tablet 200 mg PO MOWEFR 10/11/22 [History Last Taken Unknown] melatonin 5 mg tablet 5 mg PO HS PRN Insomnia 10/11/22 [History Last Taken Unknown] omeprazole 40 mg capsule,delayed release 40 mg PO DAILY 10/11/22 [History Last Taken Unknown] aspirin 81 mg tablet,delayed release (Adult Low Dose Aspirin) 81 mg PO DAILY 03/14/23 [History Last Taken Unknown] Allergy/AdvReac Type Severity Reaction Status Date / Time Penicillins [PCN] Allergy Other Verified 03/18/23 06:29 Family History Mother Diabetes Father Heart disease Surgical History (Updated 03/14/23 @ 13:42 by Reyna Miles) Failed CABG (coronary artery bypass graft) History of bunionectomy History of cardiac catheterization History of carotid endarterectomy History of carpal tunnel surgery History of colonoscopy History of coronary artery bypass graft x 3 (~08/02/09) History of open heart surgery History of transurethral resection of prostate Hx laparoscopic cholecystectomy (~05/30/21) Social History Smoking Status: Never smoker alcohol intake: never Vital Signs Vital Signs Vital Signs: 03/18/23 06:26 03/18/23 06:26 Temperature 97.4 F L Temperature Source Temporal Pulse Rate 68 Respiratory Rate 18 Respiratory Pattern Normal Blood Pressure 147/68 H Blood Pressure Mean 94 Blood Pressure Source Monitor Blood Pressure Position Semi-Fowlers Blood Pressure Location Right Arm Pulse Ox 98 Oxygen Delivery Method Room Air Weight Weight: 196 lb 3.382 oz Body Mass Index (BMI) 31.6 Results Lab / Micro Data 03/17/23 07:37 03/17/23 07:37 Labs: Laboratory Results - last 24 hr 03/17/23 07:37: WBC 6.5, RBC 4.58 L, Hgb 13.6, Hct 42.0, MCV 91.7, MCH 29.7, MCHC 32.4, RDW Std Deviation 40.9, RDW Coeff of Alexander 12.4, Plt Count 241, MPV 9.0, Immature Gran % (Auto) 0.600, Neut % (Auto) 64.4, Lymph % (Auto) 22.8, [place] % (Auto) 10.0, Eos % (Auto) 2.0, Baso % (Auto) 0.2, Absolute Neuts (auto) 4.2, Absolute Lymphs (auto) 1.49, Nucleated RBC % 0, PT 13.6, INR 1.0, APTT 33.9, Sodium 138, Potassium 4.2, Chloride 103, Carbon Dioxide 31.0, Anion Gap 4 L, BUN 24 H, Creatinine 1.18, Est GFR (MDRD) Af Amer 77, Est GFR (MDRD) Non-Af 64, BUN/Creatinine Ratio 20.3 H, Glucose 107 H, Hemoglobin A1c 5.6, Fructosamine 205, Calcium 9.0, Magnesium 2.5, Blood Type O POSITIVE, Antibody Screen NEGATIVE 03/18/23 06:24: POC Glucose 129 H
--- NOTE | 2023-03-18 07:30 | SHO_PTH ---
PATIENT: ASHLEY LOPEZ LOC: [facility] [place][id number] AGE/SX: 77/M ROOM: RE03/18/[address]: Dr. Dustin Mosqueda MD : 1945 BED: DIS: 03/18/2023 SPEC #: [id number] RECD: 03/18/23 14:17 STATUS: GINA SERGEY #: [id number] RADHA: 03/18/23 07:[address]: Dustin Mosqueda DEPT: SURGICAL PATHOLOGY RECD BY: Lynn Hudson ENTERED: 03/19/23 08:14 SP TYPE: HUMERUS OTHR DR: MD Dr. Wilberto Roy MD Tissues: Humerus, NOS Procedures: Decalcification bone/plaque Surgery Specimen Level IV HEADER OPERATION: Reverse total shoulder arthroplasty PRE-OP DIAGNOSIS: Closed fracture of left proximal humerus TISSUE SUBMITTED: Bone and soft tissue left shoulder MICROSCOPIC DIAGNOSIS Bone and soft tissue left shoulder, total shoulder replacement/resection: Humeral head and detached pieces of bone with hemorrhage and callus formation, clinically fracture of left proximal humerus. SHAMAR:elio 03/24/2023 MICROSCOPIC DESCRIPTION Slides are reviewed. GROSS DESCRIPTION Received is one container labeled with the patient's name and designated bone and soft tissue left shoulder. The specimen consists of a humeral head in multiple pieces measuring in aggregate 5.5 x 4.5 x 1.5 cm. The articular surface is smooth. The resection margin is irregular and hemorrhagic. Also present in the container are multiple pieces of bone measuring in aggregate 7.0 x 6.0 x 2.0 cm. No soft tissue is identified. Tile Fitter sections are submitted in three cassettes after decalcification as follows: 1 & 2 - detached pieces of bone, 3 - humeral head. / SHAMAR:elio 03/19/2023 TC: CPT: 08885, [id number]
--- NOTE | 2023-03-18 08:15 | RAD_ITS ---
STUDY: X-RAY - LEFT SHOULDER REASON FOR EXAM: Male, 77 years old. Left reverse total shoulder arthroplasty. TECHNIQUE: 3 spot films of the left shoulder during reverse total shoulder arthroplasty. COMPARISON: Left shoulder radiographs dated 03/07/2023. FINDINGS: 3 intraoperative spot films of the left shoulder were obtained during reverse total shoulder arthroplasty. Successful placement of reverse shoulder arthroplasty, with no periprosthetic fracture. There is mild acromioclavicular arthrosis. Normal acromion. The soft tissue structures are unremarkable. Normal visualized pulmonary apex. RAD/Shoulder min 2 Views IMPRESSION: Successful placement of left reverse shoulder arthroplasty, with no periprosthetic fracture. Mild acromioclavicular arthrosis. Electronically Signed: Shiva Myrick MD at 9:31 EDT ,
[2023-03-18] MEDS: Cefazolin 2 GM in 0.9% Normal Saline (100mL Bag) 100 ML IV (08:24)
[2023-03-18] MEDS: TXA 1000mg in NS100 100ml (IVPB at Incision) 660 MG IV (08:44)
[2023-03-18] MEDS: dexAMETHasone 10 MG/ML Vial IV (09:16)
[2023-03-18] MEDS: TXA 1000mg in NS100 100ml (IVPB at Closure) 660 MG IV (11:24)
--- NOTE | 2023-03-18 11:42 | DCINST_ITS ---
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 Discharge Plan Admission Attending Provider: Dustin Mosqueda Primary Care Provider: Lowell Johnson Consulting Providers: Wilberto Glover Discharge Orders/Prescriptions Prescriptions: New oxycodone-acetaminophen [Endocet] 5-325 mg tablet 1 tab PO Q4H MDD 6 PRN (Reason: pain) 5 Days Qty: 30 0RF No Action acetaminophen 500 mg capsule 500 mg PO Q6H PRN (Reason: Pain) docusate sodium 100 mg capsule 100 mg PO BID PRN (Reason: Constipation) magnesium 200 mg tablet 200 mg PO MOWEFR melatonin 5 mg tablet 5 mg PO HS PRN (Reason: Insomnia) omeprazole 40 mg capsule,delayed release(DR/EC) 40 mg PO DAILY cyanocobalamin (vitamin B-12) 5,000 mcg tablet, sublingual 5,000 mcg sublingual DAILY donepezil 5 mg tablet 5 mg PO QHS atorvastatin 40 mg tablet 40 mg PO DAILY amlodipine 10 mg tablet 10 mg PO DAILY metoprolol tartrate 25 mg tablet 25 mg PO BID duloxetine 30 mg capsule,delayed release(DR/EC) 30 mg PO BID aspirin [Adult Low Dose Aspirin] 81 mg tablet,delayed release (DR/EC) 81 mg PO DAILY Referrals / Follow Up: Lowell Johnson MD [Primary Care Provider] - Dustin Mosqueda MD [Med Staff - Active Staff] - Disposition Disposition (needs filled in before D/C Order can be placed): Home, Self Care
--- NOTE | 2023-03-18 11:44 | OP.PCM_ITS ---
Problems Associated Problem List Diagnoses (1) Closed fracture of left proximal humerus: Report of Operation Date of Procedure: 03/18/23 Pre-Operative Diagnosis: L proximal humerus fracture Post-Operative Diagnosis: same` Surgery/Procedure Performed:: Left reverse total shoulder arthroplasty Surgeon: Dustin Mosqueda Type of Anesthesia: Block,Regional and General Anesthesiologist: Wilberto Glover Estimated Blood Loss (mL): 150 Description of Procedure: Patient brought to the operating room theater. Placed supine on the beachchair positioner. General anesthesia induced. 2 g IV Ancef administered prior to the start of the procedure. trimano arm positioner used. Bed turned 90 degrees. Patient sat up at a 45 degree angle. Upper extremity prepped and draped in the usual sterile fashion with chlorhexidine-based prep solution and over 3 minutes drying prior to draping. Preoperative timeout performed to confirm the site patient and the surgery. Made a standard deltopectoral incision just lateral to the coracoid process. Carried dissection down through skin and subcutaneous tissue. Identified the cephalic vein. Retracted out laterally. Developed the interval between the deltoid and pectoralis major. Then identified the conjoined tendon retracted that medially dissected on the lateral side of that. Identified the fracture site cleared away any interposed hematoma and fracture periosteum. Identified the long head of the biceps performed a biceps tenodesis to the upper border of the pectoralis major tendon. Released a very small amount of the upper border of the pectoralis major. Identified the biceps groove. Followed the biceps long head through the rotator interval. Worked on the superior and inferior aspect of the subscapularis. Controlled the circumflex humeral vessels. Identified the axillary nerve protected that. Did a lesser tuberosity osteotomy. There is comminution at the metaphyseal region. Saved any bone onto the back table. Did cut standard neck shaft angle to remove the articular segment and saved the cuff attachments to the greater tuberosity. Rotator cuff looked intact. I placed inverted horizontal mattress #2 FiberWire sutures in bone tendon junction at the lesser tuberosity as well as at the greater tuberosity of the supraspinatus and infraspinatus areas. Did 2 drill holes at the distal segment proximal end of that at the biceps groove, and again passed #2 FiberWire sutures with the loop inside the canal. Prepared the canal. Used pulsatile lavage. I then dissected on the undersurface subscapularis. Placed retractors to visualize the glenoid. Used a Henriquez instrument to remove the cartilage. Identified the full bony landmarks of the glenoid. Had my intraoperative plan available. Placed the center guidepin and slightly inferior as per my guide preoperative planning. Used a 15 degree inferior tilt reamer followed by the central peg. Drilled for a peg baseplate. Reamed down to punctate bleeding by about 1 to 2 mm per my plan. Pulse lavage the area. Chose a 15 degree full wedge with a wedge superiorly. Impacted this into place solid fixation there. I then inserted the cortical screw superiorly 42 mm length. Then I inserted the locking screws anterior posterior and inferior along the scapular body. These were locking screws. We then chose a 36 mm glenosphere standard, impacted onto place and screw tightened. Next I turned my attention to the humeral side. I trialed all the way up to a 15 mm body. This seemed of appropriate length. I used the trial with a centered tray and 6 mm polyethylene component. This achieved good compression and good tension of the conjoined tendon. No impingement full range of motion. I was able to reduce the tuberosities appropriately. Again there is some metaphyseal comminution to deal with there. Chose uncemented system as I had good purchase in shuck and rotation, the [employer] flex revive set. Trial instruments were removed and final components chosen and assembled on the back table 15 mm partially coated stem 15 mm proximal body. Stem inserted with the sutures distally looped around the stem. The center tray impacted and appeared appropriate and I irrigated then inserted the 6 mm polyethylene and reduced the shoulder. Again trialing was performed and felt to be stable. The greater and lesser tuberosities were then reduced. Previously placed sutures were then tied side to side to create compression of the greater and lesser tuberosities together and under the tray. I then used the previously placed loop sutures back through the rotator cuff tendons and back down distally to create vertebral compression as well. I also closed the rotator interval with the sutures. I then used cancellous bone graft to graft at the metaphyseal area defect. Radiographs taken and saved onto the system both for trialing as well as final component placement. Wound thoroughly irrigated but the bone graft left in place. Subcutaneous tissue closed with 2-0 Vicryl sutures and skin with 3-0 Monocryl. Skin cleaned with wet and dry dressing followed application of Steri- Strips and silver Mepilex dressing with a sling for the upper extremity. Patient woken up from the general anesthetic transferred off the operating table and taken to postanesthetic care unit in stable condition. All sponge needle instrument counts were correct no complications. cpt 06290 Complications none Admit VTE Documentation VTE Present on Admission: No VTE Mechan Device Prophylaxis: SCD's VTE Pharm Prophylaxis ordered?: No Reason prophylaxis not ordered:: Treatment Not Indicated Procedures Musculoskeletal 20xxx-29xxx: Other Procedure See Report
--- NOTE | 2023-03-18 14:27 | SUR.PHASEII ---
per dr delacruz, salo to d/c home
== END 2023-03-18 14:28 | disposition home or self-care (01) ==
LOC: SDC 05:24 → AC 05:28
PROVIDERS: Anesthesiology; PCP Family Medicine; Referring Provider Orthopaedic Surgery Sports Medicine; Visit Provider Orthopaedic Surgery Sports Medicine
PROC: (CPT 23472; principal; 2023-03-18 07:00)
DX: S42.202A Unspecified fracture of upper end of left humerus, initial encounter for closed fracture (principal); I25.10 Atherosclerotic heart disease of native coronary artery without angina pectoris; G47.33 Obstructive sleep apnea (adult) (pediatric); N40.0 Benign prostatic hyperplasia without lower urinary tract symptoms; K21.9 Gastro-esophageal reflux disease without esophagitis; I10 Essential (primary) hypertension; E78.5 Hyperlipidemia, unspecified; Z79.82 Long term (current) use of aspirin; I25.2 Old myocardial infarction; G62.9 Polyneuropathy, unspecified; Z95.1 Presence of aortocoronary bypass graft; X58.XXXA Exposure to other specified factors, initial encounter; R94.31 Abnormal electrocardiogram [ECG] [EKG]; I44.7 Left bundle-branch block, unspecified; Z01.818 Encounter for other preprocedural examination; Z79.899 Other long term (current) drug therapy
CPT/HCPCS: 23472; 01638; 64450; 36415; 73030; 76000; 80048; 82962; 82985; 83036; 83735; 85025; 85610; 85730; 86850; 86900; 86901; 87081; 88305; 88311; 93005; C1776; J7120; J2405; J3475

== ENCOUNTER 2023-05-20 09:00 | Outpatient (RCR) | payer MEDICARE, SELFPAY ==
--- NOTE | 2023-04-01 15:25 | HP.PTEVAL ---
Patient's Visit Information Visit Information Visit Information: ASHLEY LOPEZ is a 77 year old M referred to Physical Therapy by Dr. Dustin Mosqueda MD with a diagnosis of L proximal humerus fx with subsequent L Reverse TSA, DOS: 03/18/23. Date of Evaluation: 04/01/23 Physical Therapist: [facility] Visit Plan Frequency: 2x /Week Duration: 6 Weeks Plan: Physician okay for pendulums, passive and AAROM at this mary jane. Okay to progress to AROM at 04/29/23. Strengthening okay for 05/26/23. I gave patient pendulums, shoulder walk aways, elbow flexion/extension, wrist flexion, wanded ER for stretching. I also want his assisting with PROM at home. I was very concerned about his copay and not being able to afford PT. I talked to him about importance of ROM, especially initially. I also gave him a compression sleeve for his distal extremity. Subjective Subjective: Pt. is here today for his initial evaluation with diagnosis of L proximal humerus fracture with subsequent L reverse total shoulder arthroplasty. DOS: 03/18/23. Pt. reports falling from a ladder resulting in a proximal humerus fracture and resulting in need for reverse TSA L side. Pt. denies N/T in either UE. Pt. is sleeping okay, using sling. Pt. He reports having increased swelling, but reports physician is aware. Pt. has not been doing much exercises yet. Pt. is retired, but does a lot of work out side. Pt. is hopeful to reduce symptoms and regain is ROM in order to get back to all recreational and household work acivities without limitations. Pain L shoulder: Pain Intensity (Out of 10): 2 Pain Intensity Range: 0 and 5 Objective Objective: POSTURE: Pt. has L UE in guarded posture across body. Pt. has slight forward shoulder, pt. is able to correct. PALPATION: Pt. good healing incision, marked bruising and edema at anterior shoulder and down his arm. Marked edema in elbow, forearm and hand/wrist as well. NEURO: Pt. has sensation in BUEs. all DTR of RUE. ROM: R shoulder: flexion 170deg, abd 165deg, functional ER C4, functional IR L4. L shoulder PROM: flexion 90deg, ER 20deg, scaption 80deg. ELBOW: Pt. is lacking last 20deg of extension this is from previous injury, flexion 110deg tightness. MMT: RUE 5/5 throughout. LUE not tested. Balance/Special Test Scores Quick DASH Score: 45.4525 Goals Goal 1:: LTG: Pt. to be I with HEP for both PROM and AAROM exercises. Goal Time Frame: 2-4 Weeks Goal 2:: STG: pt. to sleep throughout the night with 0-2/10 pain in L shoulder. Goal 3:: LTG: Pt. to have increased PROM flexion of L shoulder to 135deg, and ER to 30deg. Goal Time Frame: 2-4 Weeks Goal 4:: LTG: Pt. to have increased L shoulder AROM to flexion 140deg, abd 140deg, functional ER C2, functional IR L5. Goal Time Frame: 6-8 Weeks Goal 5:: LTG: pt. to have increased L shoulder strength to 75% of R side. Goal Time Frame: 8-12 Weeks Rehabilitation Potential Physical Therapy Diagnosis: Pt. has signs and symptoms consistent with L proximal humerus fx with subsequent L Reverse TSA, DOS: 03/18/23. Pt. has marked hypombility, increased edema and limited use of L UE. Pt. Rehabilitation Potential: Good Anticipated Interventions Patient/Client Instruction: Educate patient on: Condition, Plan of Care, Risk Factors and Benefits of Fitness Program For the Purpose of:: To improve self management, To prevent re-injury, To improve ability to perform tasks related to life management and To improve tolerance to ADL's Therapeutic Exercise to Include: Strength training, Power training, Postural training, Flexibilty training, Passive ROM, Active ROM and Scapular Strength/Stabilization For the Purpose of:: To decrease pain, To decrease swelling/inflammation, To increase ROM, To improve nutrient delivery to tissue, To increase oxygenation perfusion, To improve muscle performance and motor function, To improve ability to perform ADL's, To increase tolerance to activity/condition/position, To improve health of tissue, To decrease soft tissue restriction and To increase flexibility/ROM Text: Thank you for the opportunity to evaluate your patient. For Medicare and Medicare HMO plans, please review the plan of care and approve it. It will need to be FAXED BACK to us at [phone] for Medicare purposes. For Medicare only, by signing this I certify the plan of care. Please let me know if there are questions or concerns regarding this plan of care. Physician Signature: Date:
--- NOTE | 2023-05-20 09:28 | HP.PTREVAL ---
Re-Evaluation Intro: Dr. Dustin Mosqueda MD, It has been my pleasure to treat ASHLEY LOPEZ over the last 4 visits for L proximal humerus fx with subsequent L Reverse TSA, DOS: 03/18/23. Please see the progress note below for an update on the physical therapy plan of care! Subjective Subjective: Pt. reports being consistent with HEP at home. Pt. reports not much pain currently. 0/10 pain at rest, 4/10 pain with end range movement. Objective Objective/Function: He continues to be limited to ~90deg of flexion and abduction, ER to 10 deg, functional IR to L PSIS. I urged him to continue to very proactive with his ROM, he consents. I would really like to continue to see him to work on his ROM, but is was fairly adamant that he wanted to follow up with physician first. Due to this he urged him to be very consistent with his stretching at home. Pt. to see physician next week. Pt. is progressing, but slowly. Plan Plan Plan: Pt. wants to make this his last visit. I urged him to continue to work on his motion. He is concerned about his copay. He continues to be pretty tight, but with his limited use of hi L elbow this is impacting his ability to move his L shoulder and how he can stretch it. Balance/Gait/Functional tests Balance/Special Test Scores Quick DASH Score: 45.4525 Goals Goals Goal 1:: LTG: Pt. to be I with HEP for both PROM and AAROM exercises. Goal Time Frame: 2-4 Weeks Goal Progress: Progressing Goal 2:: STG: pt. to sleep throughout the night with 0-2/10 pain in L shoulder. Goal Progress: Progressing Goal 3:: LTG: Pt. to have increased PROM flexion of L shoulder to 135deg, and ER to 30deg. Goal Time Frame: 2-4 Weeks Goal Progress: Progressing Goal 4:: LTG: Pt. to have increased L shoulder AROM to flexion 140deg, abd 140deg, functional ER C2, functional IR L5. Goal Time Frame: 6-8 Weeks Goal Progress: Progressing Goal 5:: LTG: pt. to have increased L shoulder strength to 75% of R side. Goal Time Frame: 8-12 Weeks Goal Progress: Progressing Anticipated Interventions Anticipated Interventions Patient/Client Instruction: Educate patient on: Condition, Plan of Care, Risk Factors and Benefits of Fitness Program For the Purpose of:: To improve self management, To prevent re-injury, To improve ability to perform tasks related to life management and To improve tolerance to ADL's Therapeutic Exercise to Include: Strength training, Power training, Postural training, Flexibilty training, Passive ROM, Active ROM and Scapular Strength/Stabilization For the Purpose of:: To decrease pain, To decrease swelling/inflammation, To increase ROM, To improve nutrient delivery to tissue, To increase oxygenation perfusion, To improve muscle performance and motor function, To improve ability to perform ADL's, To increase tolerance to activity/condition/position, To improve health of tissue, To decrease soft tissue restriction and To increase flexibility/ROM Re-Evaluation Ending Re-evaluation ending: Please do not hesitate to contact me at [phone] by phone or if you have questions or concerns regarding this new plan of care! Sincerely, [facility]
== END 2023-05-20 19:00 | disposition home or self-care (01) ==
LOC: PT 09:00
PROVIDERS: PCP Family Medicine; Referring Provider Orthopaedic Surgery Sports Medicine; Visit Provider Orthopaedic Surgery Sports Medicine
DX: S42.202D Unspecified fracture of upper end of left humerus, subsequent encounter for fracture with routine healing (principal)
CPT/HCPCS: 97110; 97161

== ENCOUNTER 2024-10-20 14:05 | Observation (INO) | payer MEDICARE, SELFPAY ==
[2024-10-20] VITALS (11 sets, daily range): BP systolic 135–170; BP diastolic 57–83; PULSE 50–83; RESP 14–19; TEMP 36.4–36.6; O2SAT 96–99; BMI 31.5; BMI 33.6; BMI 34.7
--- NOTE | 2024-10-20 14:09 | CT_ITS ---
PROCEDURE: STROKE CTA HEAD AND NECK W/CON 10/20/2024 REASON FOR EXAM: NEURO DEFICIT, ACUTE, STROKE SUSPECTED TECHNIQUE: CTA imaging of the head and neck from the aortic arch to the skull vertex with out constrast and with intravenous contrast. Coronal and Sagittal reconstruction series were provided. 3D post processing with reformations, Maximum intensity projection (MIPs) Volume rendering and Shaded surface rendering was provided. CONTRAST: Isovue 370 VOLUME: 100 mL One or more dose reduction techniques were used (e.g., Automated exposure control, adjustment of the mA and/or kV according to patient size, use of iterative reconstruction technique). RADIATION DOSE SUMMARY: CTDlvol: 54 mGy DLP: 900 mGycm COMPARISON: Same-day CT head FINDINGS: See same day CT head for discussion of nonvascular findings. Three-vessel aortic arch with scattered calcific plaque. No focal stenosis or occlusion. Calcific plaque of the left vertebral artery at its origin resulting in mild focal narrowing. The right vertebral artery is widely patent. Calcific plaque of the right cervical common and internal carotid arteries resulting in 30% stenosis on the right by NASCET criteria. 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 Severe mixed atherosclerotic plaque of the left cervical common and internal carotid arteries resulting in 50% stenosis by NASCET criteria on the left. Surgical clips along the left cervical carotid artery, most compatible with prior endarterectomy. Calcification of the bilateral carotid siphons without focal narrowing. The bilateral anterior, middle and posterior cerebral arteries are widely patent. Calcific plaque of the left intracranial vertebral artery resulting in moderate narrowing. No aneurysm or AVM. Major venous structures: Unremarkable. Other findings: Skin thickening along the posterior right scalp. 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 Cervical spondylosis. CT/STROKE CTA Head AND Neck W/Con IMPRESSION: 1. No large vessel occlusion, AVM or aneurysm. 2. 30% stenosis of the right and 50% stenosis of the left carotid arteries by N ASCET criteria. Surgical clips along the left common carotid artery, most compatible with prior endarterectomy. 3. 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 Reading Location: [id number]
--- NOTE | 2024-10-20 14:09 | CT_ITS ---
PROCEDURE: STROKE BRAIN/HEAD WITHOUT CONT 10/20/2024 REASON FOR EXAM: NEURO DEFICIT, ACUTE, STROKE SUSPECTED TECHNIQUE: Head CT without intravenous contrast. Coronal and Sagittal reconstruction series were provided. One or more dose reduction techniques were used (e.g., Automated exposure control, adjustment of the mA and/or kV according to patient size, use of iterative reconstruction technique. RADIATION DOSE SUMMARY: CTDlvol: 44.99 mGy DLP: 846.73 mGycm COMPARISON: No priors available. FINDINGS: Brain: Low density in the periventricular white matter suggests mild chronic small vessel ischemic changes. Atherosclerotic plaque formation of the cavernous portions of the internal carotid arteries bilaterally. CSF Spaces: Mild generalized cerebral atrophy Sinuses/Mastoids: Clear at visualized levels Bones: Unremarkable CT/STROKE Brain/Head without Cont IMPRESSION: CHRONIC CHANGES. NO ACUTE FINDINGS. Red Alert: Nothing acute The critical information above was relayed directly by me by telephone to Nehemiah Bonilla on 10/20/2024 at 2:29 pm with readback verification. Reading Location: [place] [id number]
[2024-10-20 14:29] LABS: Bedside Glucose 149 mg/dL (74-106)
[2024-10-20 14:31] LABS: Absolute Lymphocyte Count 1.57 X10^3/uL (0.83-4.51); Basophil# 0.03 X10^3/uL; Basophil% 0.5 % (0-1); Eosinophil# 0.11 X10^3/uL; Eosinophils% 1.7 % (0-5); Hematocrit 43.7 % (40-54); Hemoglobin 14.8 g/dL (13.0-16.5); Lymphocyte # 1.57 X10^3/ul (0.83-4.51); Lymphocyte % 24.3 % (19-41); Mean Corp Hgb Conc 33.9 g/dL (32-36); Mean Corpuscular Hgb 29.8 pg (27.0-32.0); Mean Corpuscular Volume 88.1 fL (80-94); Mean Platelet Vol. 9.8 fl (6.2-12.0); Monocyte# 0.74 X10^3/uL; Monocyte% 11.5 % (0-10); NRBC Flagged by Analyzer 0 % (0-5); Neutrophil # 3.98 X10^3/uL (2.7-7.7); Neutrophil % 61.5 % (47-70); Platelet Count 159 K/mm3 (150-450); RBC Distribution Width CV 12.5 % (11.6-14.6); RBC Distribution Width SD 39.9 fl (35.1-43.9); Red Blood Count 4.96 M/mm3 (4.6-6.2); White Blood Count 6.5 K/mm3 (4.4-11.0)
--- NOTE | 2024-10-20 14:31 | EDS_ITS ---
HPI History of Present Illness Chief Complaint: Stroke Alert Narrative Narrative: Chief complaint and HPI: Left leg weakness. History taken by medical record (cardiology office note) as well as patient. 79-year-old male with history of CAD status post coronary bypass, HTN, HLD, renal insufficiency and peripheral neuropathy. presents for evaluation of left leg weakness. Last known normal was at 7:30 PM on 10/19/2024. Patient states he went to bed around 7:30 PM and was at his normal state of health. He states that he woke up this morning with left leg weakness. He states the weakness is causing him difficulty in ambulation. He denies any trauma or injury. Denies any fever, chills, shortness of breath, chest pain, abdominal pain, nausea, vomiting, diarrhea, constipation, dysuria. Denies any new numbness or tingling, aphasia, dysphagia. Not on a blood thinner. Patient was evaluated in triage and made a stroke alert. He was taken immediately to CT as he was within the LVO window. He is outside the window for TNK. Review of systems: See HPI Medications: As listed on the chart Allergies: As listed on the chart PFSH: Per chart Vital signs: As listed on the chart. Reviewed. Physical exam: Gen: A&O x4, NAD Head: Normocephalic, atraumatic Eyes: No sclera icterus, conjunctiva clear, PERRL, EOMI ENT: Moist mucous membranes, No facial asymmetry Neck: Trachea midline, No JVD CV: RRR, no murmurs, no peripheral edema Resp: Lungs CTA BL, no w/r/c GI: Abd soft, non-distended, non-tender, no r/r/g Musc: Full ROM, no deformity, strength +5/5 in all extremities except for the left lower extremity strength is +4/5 causing a slight drift of the left lower extremity without hitting the bed, no pronator drift, no ataxia with [id number] or gerard to heel testing, with ambulation patient does lean to the left but states that it is secondary to weakness and not dizziness Skin: Warm, dry, intact Neuro: Alert, oriented, grossly intact, sensation intact, no focal deficits, no aphasia, no dysarthria, NIH 1 Psych: Cooperative, appropriate mood and affect [facility] Medical History Postoperative urinary retention Wears glasses Dietary restriction Non-smoker History of edema History of echocardiogram Closed fracture of left proximal humerus Abnormal stress test Mild cognitive impairment Depression Renal insufficiency Peripheral neuropathy CATIE (obstructive sleep apnea) Insomnia Hyperlipidemia GERD (gastroesophageal reflux disease) Chronic idiopathic constipation Atherosclerosis of coronary artery of [place] without angina pectoris BPH (benign prostatic hyperplasia) CPAP (continuous positive airway pressure) dependence History of stress test Hypertension History of heart attack Cardiology follow-up encounter Home Medications ?Medication ?Instructions ?Recorded ?Last Taken ?Type amlodipine 10 mg tablet 10 mg PO DAILY 07/04/21 Unkn own History atorvastatin 40 mg tablet 40 mg PO DAILY 07/04/21 Unkn own History duloxetine 30 mg capsule,delayed 30 mg PO BID 07/04/21 Unknown History release metoprolol tartrate 25 mg tablet 25 mg PO BID 07/04/21 Unknown History acetaminophen 500 mg capsule 500 mg PO Q6H PRN Pain Unknown History docusate sodium 100 mg capsule 100 mg PO BID PRN Const ipation 10/11/22 Unknown History donepezil 5 mg tablet 5 mg PO QHS 10/11/22 Unknown History magnesium 200 mg tablet 200 mg PO MOWEFR 10/11/22 Un known History melatonin 5 mg tablet 5 mg PO HS PRN Insomnia 09/28 10/20 Unknown History omeprazole 40 mg capsule,delayed 40 mg PO DAILY Unknown History release aspirin 81 mg tablet,delayed 81 mg PO DAILY 03/14/23 U nknown History release (Adult Low Dose Aspirin) gabapentin 300 mg capsule 300 mg PO QHS 10/20/2410/19 History Allergy/AdvReac Type Severity Reaction Status Date / Time Penicillins (PCN) Allergy Other Verified 11/20/23 09:00 Family History Mother Diabetes Father Heart disease Surgical History History of left shoulder replacement (~03/11/23) History of transurethral resection of prostate History of colonoscopy History of coronary artery bypass graft x 3 (~08/02/09) History of carpal tunnel surgery Failed CABG (coronary artery bypass graft) History of cardiac catheterization History of bunionectomy Hx laparoscopic cholecystectomy (~05/30/21) History of carotid endarterectomy History of open heart surgery Social History Smoking Status: Never smoker alcohol intake: never EXAM Physical Exam Const Vital Signs: 10/20/24 14:07 10/20/24 14:25 10/20/24 14:25 Temperature 98 F Temperature Source Oral Pulse Rate 83 64 Respiratory Rate 18 18 Blood Pressure 138/72 H 156/68 H Blood Pressure Mean 94 97 Pulse Ox 98 97 Oxygen Delivery Method Room Air Room Air Room Air 10/20/24 14:29 10/20/24 14:45 Temperature Temperature Source Pulse Rate 73 57 L Respiratory Rate 18 18 Blood Pressure 139/57 H 135/67 H Blood Pressure Mean 84 89 Pulse Ox 97 96 Oxygen Delivery Method Room Air Room Air MDM MDM MDM Narrative Medical decision making narrative: 79-year-old male with history of CAD status post coronary bypass, HTN, HLD, renal insufficiency and peripheral neuropathy. presents for evaluation of left leg weakness. Last known normal was at 7:30 PM on 10/19/2024. Patient outside TNK window. Patient was within LVO window and therefore made a stroke alert. Taken immediately to CT. NIH 1 secondary to left lower extremity weakness. Differential diagnosis includes but is not limited to CVA, LVO, electrolyte abnormality, UTI. Glucose 149. I personally spoke to the radiologist on the phone, CT head negative for acute intracranial process. I spoke with the teleneurology at [facility] on the telephone, patient was discussed. Agrees that patient is not a TNK candidate. EKG reviewed. See below. CBC without leukocytosis or anemia. Coagulation panel unremarkable. Patient has renal insufficiency with a creatinine of 1.26. Per cardiology note patient has a history of renal insufficiency however previous labs are from 2022 with a creatinine of 1.18. Magnesium unremarkable. Troponin unremarkable. CTA head and neck shows no LVO, AVM, or aneurysm. There presents to us with the right and 50% stenosis of the left carotid arteries. 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 Patient will warrant admission for CVA workup/MRI brain. Aspirin ordered. Patient was discussed with the hospitalist who accepted admission. Patient was updated of all results and confirmed understanding the plan. EKG: Interpreted by me/EM physician: EKG shows sinus rhythm with PACs. No acute ischemic changes. Known right bundle branch block. Heart rate 63. This is similar to previous EKG. Diagnostic: Interpreted by me/EM physician: Chest x-ray without pneumonia, effusion, cardiomegaly, pneumothorax previous surgery visualized. Impression: 1. Left lower extremity weakness, concern for CVA 2. Renal insufficiency Lab Data Labs: Laboratory Results - last 24 hr 10/20/24 10/20/24 14:10 14:20 WBC 6.5 RBC 4.96 Hgb 14.8 Hct 43.7 MCV 88.1 MCH 29.8 MCHC 33.9 RDW Std Deviation 39.9 RDW Coeff of Alexander 12.5 Plt Count 159 MPV 9.8 Immature Gran % (Auto) 0.500 Neut % (Auto) 61.5 Lymph % (Auto) 24.3 [place] % (Auto) 11.5 H Eos % (Auto) 1.7 Baso % (Auto) 0.5 Absolute Neuts (auto) 4.0 Absolute Lymphs (auto) 1.57 Nucleated RBC % 0 PT 13.0 INR 1.0 APTT 28.5 Sodium 138 Potassium 4.6 Chloride 101 Carbon Dioxide 26.9 Anion Gap 11 BUN 23 H Creatinine 1.26 H Estim Creat Clear Calc 52.97 Est GFR (MDRD) Non-Af 59 L BUN/Creatinine Ratio 18.1 Glucose 149 H Calcium 9.2 Magnesium 2.2 Troponin T High Sens 14 POC Glucose 149 H Radiography Diagnostic Testing: Clinical Impression(s) from Imaging Studies Brain CT 10/20/24 14:09 IMPRESSION: CHRONIC CHANGES. NO ACUTE FINDINGS. Red Alert: Nothing acute The critical information above was relayed directly by me by telephone to Nehemiah Puckett on 10/20/2024 at 2:29 pm with readback verification. Reading Location: [facility] Head/Neck CTA 10/20/24 14:09 IMPRESSION: 1. No large vessel occlusion, AVM or aneurysm. 2. 30% stenosis of the right and 50% stenosis of the left carotid arteries by NASCET criteria. Surgical clips along the left common carotid artery, most compatible with prior endarterectomy. 3. 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 Reading Location: [facility] Chest X-Ray 10/20/24 15:09 IMPRESSION: Cardiomegaly. The lungs are clear. Reading [facility] Dis[facility] Plan Triage Chief Complaint: Stroke Alert ED Provider: Nehemiah Puckett Dx/Rx/DC Orders Prescriptions: No Action acetaminophen 500 mg capsule 500 mg PO Q6H PRN (Reason: Pain) docusate sodium 100 mg capsule 100 mg PO BID PRN (Reason: Constipation) magnesium 200 mg tablet 200 mg PO DAILY melatonin 5 mg tablet 5 mg PO HS PRN (Reason: Insomnia) omeprazole 40 mg capsule,delayed release(DR/EC) 40 mg PO DAILY PRN (Reason: GERD) donepezil 5 mg tablet 5 mg PO QHS atorvastatin 40 mg tablet 40 mg PO DAILY amlodipine 10 mg tablet 10 mg PO DAILY metoprolol tartrate 25 mg tablet 25 mg PO BID duloxetine 30 mg capsule,delayed release(DR/EC) 30 mg PO BID gabapentin 300 mg capsule 300 mg PO QHS aspirin [Adult Low Dose Aspirin] 81 mg tablet,delayed release (DR/EC) 81 mg PO DAILY Primary Care Provider: Lowell Johnson Referrals: Lowell Johnson MD [Primary Care Provider] - Print Language: Syriac Stroke Documentation Questions Stroke Team Activated: Yes Was Patient considered for Endovascular Intervention?: No-CTA negative, determined not to be an endovascular candidate IV Thrombolytic Administered: No (Outside [facility] window) Critical care time (excluding procedures): 30-74 minutes
[2024-10-20 14:40] LABS: Partial Thromboplast Time 28.5 Seconds (24.1-36.2)
[2024-10-20 15:02] LABS: Anion Gap 11 (5-15); BUN 23 mg/dL (4-19); BUN/Creat Ratio 18.1 RATIO (10-20); Calcium,Total 9.2 mg/dL (7.6-11.0); Carbon Dioxide 26.9 mmol/L (21.0-32.0); Chloride 101 mmol/L (98-108); Creatinine, Serum 1.26 mg/dL (0.70-1.20); EST Glomerular Filtration Rate 59 (>60); Estimated Creatinine Clearance 52.97 ml/min (50-250); Glucose 149 mg/dL (70-99); Magnesium 2.2 mg/dL (1.5-2.2); Potassium 4.6 mmol/L (3.3-5.1); Sodium Level 138 mmol/L (133-145); Troponin T High Sensitivity 14 ng/L (<=22)
--- NOTE | 2024-10-20 15:09 | RAD_ITS ---
PROCEDURE: CHEST 1 VIEW 10/20/2024 REASON FOR EXAM: NEURO DEFICIT, ACUTE, STROKE SUSPECTED TECHNIQUE: Frontal view of the chest. COMPARISON: None available. FINDINGS: Hardware: Sternotomy wires are present. Heart: Heart size is moderately enlarged. Lungs: The lungs are clear. Bones: Degenerative changes are identified within the thoracic spine. Other: Prior left reverse shoulder replacement. RAD/Chest 1 View IMPRESSION: Cardiomegaly. The lungs are clear. Reading Location: [place] [id number]
--- NOTE | 2024-10-20 15:52 | PCM.HP.STD ---
HPI - General General Date of Admission: 10/20/24 Date of Service: 10/20/24 Chief Complaint: Left lower extremity weakness HPI Narrative ASHLEY LOPEZ, is a 79-year-old male history of coronary artery disease status post bypass, GERD, neuropathy presented [facility] ED 10/20/2024 with left leg weakness and was a stroke alert. Went to bed at 7:30 PM and woke up this morning with left leg weakness causing difficulty in ambulation. Patient with no LVO on CTA, hospitalist contacted for admission for stroke workup. Patient evaluated at bedside. Patient does report that he was alone up to bed last night and woke up today and has the left lower extremity weakness, he is unsure if it is improved monitorings he is not been up and moving around, may be some paresthesias in the left lower extremity but denies any other acute neurological complaints [facility] Medical History (Updated 10/20/24 @ 15:[address] Judy Aguilar MD) Abnormal stress test Atherosclerosis of coronary artery of [place] heart without angina pectoris BPH (benign prostatic hyperplasia) Cardiology follow-up encounter Chronic idiopathic constipation Closed fracture of left proximal humerus CPAP (continuous positive airway pressure) dependence Depression Dietary restriction GERD (gastroesophageal reflux disease) History of echocardiogram History of edema History of heart attack History of stress test Hyperlipidemia Hypertension Insomnia Mild cognitive impairment Non-smoker CATIE (obstructive sleep apnea) Peripheral neuropathy Postoperative urinary retention Renal insufficiency Wears glasses Home Medications ?Medication ?Instructions ?Recorded ?Last Taken ?Type amlodipine 10 mg tablet 10 mg PO DAILY 07/04/21 10/20/24 History atorvastatin 40 mg tablet 40 mg PO DAILY 07/04/21 10/20/24 History duloxetine 30 mg capsule,delayed 30 mg PO BID 07/04/21 10/20/24 History release metoprolol tartrate 25 mg tablet 25 mg PO BID 07/04/21 10/20/24 History acetaminophen 500 mg capsule 500 mg PO Q6H PRN Pain 10/11/22 10/19/24 History docusate sodium 100 mg capsule 100 mg PO BID PRN Constipation 10/11/22 Unknown History donepezil 5 mg tablet 5 mg PO QHS 10/11/22 10/19/24 History magnesium 200 mg tablet 200 mg PO DAILY 10/11/22 10/20/24 History melatonin 5 mg tablet 15 mg PO QHS PRN Insomnia 10/11/22 10/19/24 History omeprazole 40 mg capsule,delayed 40 mg PO DAILY PRN GERD 10/11/22 Unknown History release aspirin 81 mg tablet,delayed 81 mg PO DAILY 03/14/23 10/20/24 History release (Adult Low Dose Aspirin) gabapentin 300 mg capsule 300 mg PO QHS 10/20/24 10/19/24 History Allergy/AdvReac Type Severity Reaction Status Date / Time Penicillins (PCN) Allergy Other Verified 11/20/23 09:00 Family History Mother Diabetes Father Heart disease Surgical History Failed CABG (coronary artery bypass graft) History of bunionectomy History of cardiac catheterization History of carotid endarterectomy History of carpal tunnel surgery History of colonoscopy History of coronary artery bypass graft x 3 (~08/02/09) History of left shoulder replacement (~03/11/23) History of open heart surgery History of transurethral resection of prostate Hx laparoscopic cholecystectomy (~05/30/21) Social History Smoking Status: Never smoker alcohol intake: never ROS ROS Narrative General: Denies fever/chills HENT: Denies headache, has little bit of nasal congestion, denies sore throat EYES: Denies changes in vision Resp: Denies cough, denies shortness of breath Cardiac: Denies chest pain GI: Denies abdominal pain, denies changes in bowel, denies nausea/vomiting : Denies changes in urination Extremity: Denies swelling MSK: Weakness in left lower extremity Neuro: Weakness maybe some numbness in left lower extremity Heme: Denies any bleeding or bruising Skin: Denies rashes Psychiatric: No complaints voiced Vital Signs Vital Signs Vital Signs: 10/20/24 14:07 10/20/24 14:25 10/20/24 14:25 Temperature 98 F Temperature Source Oral Pulse Rate 83 64 Respiratory Rate 18 18 Blood Pressure 138/72 H 156/68 H Blood Pressure Mean 94 97 Pulse Ox 98 97 Oxygen Delivery Method Room Air Room Air Room Air 10/20/24 14:29 10/20/24 14:45 10/20/24 15:06 Temperature Temperature Source Pulse Rate 73 57 L 59 L Respiratory Rate 18 18 18 Blood Pressure 139/57 H 135/67 H 141/63 H Blood Pressure Mean 84 89 89 Pulse Ox 97 96 98 Oxygen Delivery Method Room Air Room Air 10/20/24 15:11 Temperature Temperature Source Pulse Rate 60 Respiratory Rate 19 H Blood Pressure 141/63 H Blood Pressure Mean 89 Pulse Ox 98 Oxygen Delivery Method Room Air Weight Weight: 95 kg Body Mass Index (BMI) 33.6 Physical Exam Narrative General: Alert, oriented, no apparent distress HEENT: Atraumatic, normocephalic Eyes: Anicteric, normal conjunctiva, extraocular movements intact, pupils equal Neck: Supple Respiratory: Clear to auscultation bilaterally, normal respiratory effort Cardiovascular: Regular rate and rhythm GI: Soft, nontender, nondistended Extremities: No edema Musculoskeletal: Strength 5 out of 5 in right upper extremity, 5 out of 5 left upper extremity, 5 out of 5 right lower extremity, 5 - out of 5 left lower extremity Neuro: No overt focal neurological deficits aside from weakness in left leg greater than right, cranial nerves II through XII intact, [id number] without significant difficulty bilaterally Skin: No rashes appreciated Psych: Cooperative Results Lab / Micro Data 10/20/24 14:20 10/20/24 14:20 Labs: Laboratory Results - last 24 hr 10/20/24 14:10: POC Glucose 149 H 10/20/24 14:20: WBC 6.5, RBC 4.96, Hgb 14.8, Hct 43.7, MCV 88.1, MCH 29.8, MCHC 33.9, RDW Std Deviation 39.9, RDW Coeff of Alexander 12.5, Plt Count 159, MPV 9.8, Immature Gran % (Auto) 0.500, Neut % (Auto) 61.5, Lymph % (Auto) 24.3, Dickinson % (Auto) 11.5 H, Eos % (Auto) 1.7, Baso % (Auto) 0.5, Absolute Neuts (auto) 4.0, Absolute Lymphs (auto) 1.57, Nucleated RBC % 0, PT 13.0, INR 1.0, APTT 28.5, Sodium 138, Potassium 4.6, Chloride 101, Carbon Dioxide 26.9, Anion Gap 11, BUN 23 H, Creatinine 1.26 H, Estim Creat Clear Calc 52.97, Est GFR (MDRD) Non-Af 59 L, BUN/Creatinine Ratio 18.1, Glucose 149 H, Calcium 9.2, Magnesium 2.2, Troponin T High Sens 14 Imaging Radiology Impression Brain CT 10/20/24 14:09 IMPRESSION: CHRONIC CHANGES. NO ACUTE FINDINGS. Red Alert: Nothing acute The critical information above was relayed directly by me by telephone to Nehemiah Puckett on 10/20/2024 at 2:29 pm with readback verification. Reading Location: [facility] Head/Neck CTA 10/20/24 14:09 IMPRESSION: 1. No large vessel occlusion, AVM or aneurysm. 2. 30% stenosis of the right and 50% stenosis of the left carotid arteries by NASCET criteria. Surgical clips along the left common carotid artery, most compatible with prior endarterectomy. 3. 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 Reading Location: [facility] Chest X-Ray 10/20/24 15:09 IMPRESSION: Cardiomegaly. The lungs are clear. 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 -MRI ordered -NIH q4hr -asa, statin -Echo -PT/OT/Speech eval -Teleneuro consult ordered -Hold BP medications to allow for permissive hypertension for 24 hours unless SBP greater than 220 or DBP greater than 120 or until stroke is ruled out # History of coronary artery disease - Status post bypass -Aspirin, statin - Holding metoprolol to allow for permissive hypertension #GERD -Continue PPI # Neuropathy - Patient has tried multiple agents and has struggled this for several years - Continue duloxetine and gabapentin #Hypertension - Hold to allow for permissive hypertension, may be able to resume tomorrow #CATIE -Continue home NIPPV if applicable #DVT ppx: SCDs Judy Aguilar MD Charges/Coding Visit Charges Inpatient E&M: 04538 Init Hosp L2
[2024-10-20] MEDS: Aspirin 325 MG Tablet PO (16:06)
--- NOTE | 2024-10-20 17:24 | MRI_ITS ---
PROCEDURE: BRAIN WITHOUT CONTRAST 10/20/2024 REASON FOR EXAM: CONCERN FOR CVA, LEFT LOWER EXTREMITY WEAKNESS TECHNIQUE: Noncontrast brain MRI. Multiplanar and multisequence images were obtained. COMPARISON: None FINDINGS: Several punctate foci of diffusion restriction along the right periventricular white matter as well as a diffusion restricting focus in the right frontal lobe subcortical white matter measuring 7 mm consistent with acute/subacute ischemia. Corresponding hyperintense FLAIR signal foci at these locations. No other diffusion restriction. No evidence of acute intracranial hemorrhage, midline shift or mass effect. No chronic microhemorrhage. Minimal scattered periventricular, subcortical and deep white matter hyperintense FLAIR signal foci consistent with chronic small-vessel ischemic changes. No hydrocephalus. Cerebral volume is age-appropriate. Paranasal sinuses and mastoid air cells are clear. Globes are intact. MRI/Brain without Contrast IMPRESSION: 1. Multiple small foci of acute/subacute ischemia along the right periventricul ar white matter and subcortical right frontal lobe. 2. Mild chronic small-vessel ischemic disease. Reading Location: [facility]
--- NOTE | 2024-10-20 17:24 | ECHOCS_ITS ---
Reason For Study Reason For Study: TIA/CVA Procedure This was a 2D Doppler, Color Flow transthoracic echocardiogram. The study was technically difficult. Due to body habitus. Contrast injection was performed. Exam performed portable in patient room. Left Ventricle Normal LV size. Left ventricular systolic function is normal. The left ventricular ejection fraction is 55 %. No regional wall motion abnormalities noted. Right Ventricle Normal RV size. Normal systolic function. Atria Normal left atrium. Normal right atrium. Bubble contrast study negative for right to left interatrial shunt. Mitral Valve Normal mitral valve. Tricuspid Valve Normal tricuspid valve. Aortic Valve Trisinus/trileaflet aortic valve. Pulmonic Valve Normal pulmonic valve. Great Vessels Normal aortic root. The pulmonary artery is normal size. Inferior vena cava collapse with respiration. Pericardium/Pleural No pericardial effusion. Medication Diluted definity 3.0ml given slow IV push to enhance endocardial definition. Performed a rapid injection of agitated mix of 9 cc saline and 1cc air to assess for atrial septal defect. MMode/2D Measurements & Calculations LVIDd: 5.4 cm IVSd: 1.1 cm Ao root diam: 3.6 cm LVIDs: 3.4 cm LVPWd: 1.1 cm FS: 36.7 % LAV(MOD-bp): 50.7 ml LVAd ap4: 32.0 cm2 LVAd ap2: 21.6 cm2 LAV(MOD-bp) Indexed: 25.2 ml/m2 LVLd ap4: 7.7 cm LVLd ap2: 6.9 cm LAV(MOD-sp2): 44.6 ml EDV(MOD-sp4): 109.6 ml EDV(MOD-sp2): 57.3 ml LAV(MOD-sp4): 55.8 ml EDV(sp4-el): 113.6 ml EDV(sp2-el): 57.6 ml LVAs ap4: 17.9 cm2 LVAs ap2: 12.3 cm2 LVLs ap4: 6.2 cm LVLs ap2: 5.6 cm ESV(MOD-sp4): 42.1 ml ESV(MOD-sp2): 22.2 ml ESV(sp4-el): 43.7 ml ESV(sp2-el): 22.9 ml EF(MOD-sp4): 61.6 % EF(MOD-sp2): 61.3 % EF(sp4-el): 61.5 % SV(MOD-sp4): 67.5 ml SV(MOD-sp2): 35.2 ml SV(sp4-el): 69.9 ml SI(MOD-sp4): 33.6 ml/m2 SI(MOD-sp2): 17.5 ml/m2 LA A4 area: 19.0 cm2 LA dimension(2D): 4.4 cm RA A4 area: 15.8 cm2 TAPSE: 1.6 cm Time Measurements MV dec time: 0.16 sec Doppler Measurements & Calculations MV E max brooks: 69.0 cm/sec Lat Peak E' Brooks: 10.3 cm/sec Med Peak E' Brooks: 8.3 cm/sec MV A max brooks: 76.4 cm/sec E/E' lat: 6.7 E/E' med: 8.3 MV E/A: 0.90 Ao V2 max: 136.9 cm/sec LV V1 max: 90.8 cm/sec PA V2 max: 121.5 cm/sec Ao max P.5 mmHg LV V1 max P.3 mmHg PA V2 mean: 86.7 cm/sec Ao V2 mean: 94.1 cm/sec LV V1 mean P.7 mmHg Ao mean P.1 mmHg LV V1 mean: 62.0 cm/sec Ao V2 VTI: 25.6 cm LV V1 VTI: 19.9 cm AV (velocity ratio): 0.78 TR max brooks: 307.2 cm/sec TR max P.7 mmHg ECHO/Echo Complete W/ Contrast Interpretation Summary Normal LV size. Left ventricular systolic function is normal. The left ventricular ejection fraction is 55 %. Bubble contrast study negative for right to left interatrial shunt. Ordering Physician: Judy Aguilar Referring Physician: MARIA MALIK Performed By: Melissa Gomez RDCS, RVT
[2024-10-20 17:30] LABS: Troponin T High Sens 2 HR 14 ng/L (<=22)
--- NOTE | 2024-10-20 17:45 | NURSING ---
ED nurse at bedside with this RN.This RN asking ED nurse about NIH due to score increase from 0 to 4. ED nurse states NIH looks the same as one completed in ED. Will notify
--- NOTE | 2024-10-20 17:59 | CASEMGMT ---
Care Management Face to Face with patient for initial transition planning/care coordination assessment in the ED.? This technical writer introduced self and role at [facility]. Patient alert and oriented. Patient willing to participate in assessment and is able to answer all questions appropriately.? Care providers, pharmacy, and demographics verified. Admitting Diagnosis: stroke alert/left leg weakness Other diagnosis history: ?h/o heart attack, hypertension, BPH, Insomnia, hyperlipidemia PCP: ?Alex Specialists: ?Radha Preferred Pharmacy: [facility] Insurance: ?[employer] Prescription Benefit: yes Living Will/HPOA: ?both HPOA and LW completed LNOK: ? Living Arrangements: ?Patient lives with in one story home, 2 stairs to enter.? Able to complete all ADLs and IADLs Transportation: ?patient drives DME: ?[employer] HHC: none SNF/Rehab: none Community Resources: none Behavioral Health History: patient denies, dx depression in chart Patient goals: Patient wishes to discharge home. Disposition Plan: admission to acute; RN CM/SW to follow for discharge planning needs that may arise. Mabel Jo, BRAND SPECIALIST, SENIOR COLDFUSION DEVELOPER
[2024-10-20 21:40] LABS: Bedside Glucose 122 mg/dL (74-106)
[2024-10-20] MEDS: Gabapentin 300 MG Capsule PO (21:53)
[2024-10-20] MEDS: Atorvastatin Calcium 40 MG Tablet PO (21:53)
[2024-10-20] MEDS: DULoxetine Hcl 30 MG Capsule PO (21:53)
[2024-10-21 01:39] VITALS: BP 175/70; PULSE 60; RESP 16; TEMP 36.6; O2SAT 95
[2024-10-21 05:00] VITALS: BMI 34.7
[2024-10-21 05:39] VITALS: BP 153/64; PULSE 68; RESP 16; TEMP 36.8; O2SAT 94
[2024-10-21 06:39] LABS: Bedside Glucose 98 mg/dL (74-106)
[2024-10-21 07:16] VITALS: O2SAT 93
[2024-10-21 07:46] LABS: Absolute Lymphocyte Count 1.54 X10^3/uL (0.83-4.51); Absolute Neutrophil Count 3.2 X10^3/uL (2.0-7.7); Basophil# 0.02 X10^3/uL; Basophil% 0.4 % (0-1); Eosinophil# 0.11 X10^3/uL; Hematocrit 43.3 % (40-54); Hemoglobin 14.3 g/dL (13.0-16.5); Lymphocyte # 1.54 X10^3/ul (0.83-4.51); Lymphocyte % 27.9 % (19-41); Mean Corpuscular Hgb 29.3 pg (27.0-32.0); Mean Corpuscular Volume 88.7 fL (80-94); Mean Platelet Vol. 9.6 fl (6.2-12.0); Monocyte# 0.63 X10^3/uL; Monocyte% 11.4 % (0-10); NRBC Flagged by Analyzer 0 % (0-5); Neutrophil # 3.21 X10^3/uL (2.7-7.7); Neutrophil % 58.1 % (47-70); Platelet Count 142 K/mm3 (150-450); RBC Distribution Width CV 12.6 % (11.6-14.6); RBC Distribution Width SD 41.3 fl (35.1-43.9); Red Blood Count 4.88 M/mm3 (4.6-6.2); White Blood Count 5.5 K/mm3 (4.4-11.0)
[2024-10-21 08:12] LABS: Anion Gap 9 (5-15); BUN 18 mg/dL (4-19); BUN/Creat Ratio 15.2 RATIO (10-20); Calcium,Total 8.8 mg/dL (7.6-11.0); Carbon Dioxide 27.9 mmol/L (21.0-32.0); Chloride 102 mmol/L (98-108); Cholesterol 118 mg/dL (<=200); Creatinine, Serum 1.19 mg/dL (0.70-1.20); EST Glomerular Filtration Rate 63 (>60); Estimated Creatinine Clearance 53.15 ml/min (50-250); Glucose 103 mg/dL (70-99); High Density Lipoprotein 31 mg/dL; Low Density Lipoprotein Calc. 32 mg/dL; Potassium 4.6 mmol/L (3.3-5.1); Sodium Level 139 mmol/L (133-145); Triglycerides 277 mg/dL; Very Low Density Lipoprotein 55 mg/dL (5-40); cholesterol:hdl ratio screen 3.83
[2024-10-21 08:49] LABS: Hemoglobin A1c 5.8 % (<=5.6)
[2024-10-21 09:23] VITALS: BP 146/61; PULSE 61; RESP 16; TEMP 36.4; O2SAT 97
[2024-10-21] MEDS: DULoxetine Hcl 30 MG Capsule PO (09:38)
[2024-10-21] MEDS: Aspirin 81 MG TAB.CHEW PO (09:39)
[2024-10-21 09:52] LABS: Bacteria 0 SEEN /hpf (None Seen); Mucous, Urine 0 SEEN /hpf (<or=2+); Red Blood Cells-Urine 0 SEEN /hpf (0-5); Squamous Epithelial Cells - UA 0 SEEN /hpf (0-5); White Blood Cells 0 SEEN /hpf (0-5)
[2024-10-21 10:13] LABS: Color, Urine Yellow (Yellow); Glucose, Dipstick Normal (Normal); Ketone-Dipstick Negative (Negative); Leukocyte Esterase-Dipstick Negative /ul (Negative); Nitrite-Dipstick Negative (Negative); Occult Blood-Urine Negative /ul (Negative); Protein-Dipstick 30 mg/dl (Negative); Urine Bilirubin Dipstick Negative (Negative); Urine Clarity Clear (Clear); Urine Urobilinogen Normal (Normal)
[2024-10-21 11:38] LABS: Bedside Glucose 165 mg/dL (74-106)
[2024-10-21 13:23] VITALS: BP 141/63; PULSE 79; RESP 16; TEMP 36.6; O2SAT 97
--- NOTE | 2024-10-21 14:21 | CASEMGMT ---
SW completed a PHQ9 with patient as he was positive for a Stroke. Patient scored a 4 which indicates minimal depression. Patient denied any need for counseling resources. Shanon ADAN
--- NOTE | 2024-10-21 14:33 | PCM.DC ---
Discharge Instructions Diet Discharge Diet: No restrictions DC O2, CPAP, BIPAP needs Home O2 Discharge instructions: No Dressing / Incision Discharge Activity: Return to Normal Activity Weight Bearing Status: Full weight bearing Follow Up Care Test Results: Test results from this visit will be discussed in further detail at your follow-up appointment, if applicable. Discharge Plan Admission Admit Date/Time: 10/20/24 15:52 Primary Reason for Your Visit: acute stroke Attending Provider: Carlito Recio Primary Care Provider: Lowell Johnson Consulting Providers: Zak Cadena; Rodo Eid; Lacy Barry; Radha Samaniego; Maria Elena Duckworth; Wes Chang; Zayda Pastor; Colt Stoddard; Ventura Claros; Kirk Castellon; Adrienne Hirsch; Mike Pan; Otilia Simons; Carly Krishnamurthy; Bianca Henderson; Ge Goldsmith; Dinesh Mendiola; Dominick Sterling; Kiley Myrick; Taj Mendiola; Judy Aguilar Instructions Additional Instructions / Restrictions: Remain on memantine 10 mg twice a day Discharge Orders/Prescriptions Prescriptions: New clopidogrel [Plavix] 75 mg tablet 75 mg PO DAILY Qty: 21 0RF Rx Instructions: Started on 10/22/2024 Continued acetaminophen 500 mg capsule 500 mg PO Q6H PRN (Reason: Pain) docusate sodium 100 mg capsule 100 mg PO BID PRN (Reason: Constipation) magnesium 200 mg tablet 200 mg PO DAILY melatonin 5 mg tablet 15 mg PO QHS PRN (Reason: Insomnia) omeprazole 40 mg capsule,delayed release(DR/EC) 40 mg PO DAILY PRN (Reason: GERD) atorvastatin 40 mg tablet 40 mg PO DAILY amlodipine 10 mg tablet 10 mg PO DAILY metoprolol tartrate 25 mg tablet 25 mg PO BID duloxetine 30 mg capsule,delayed release(DR/EC) 30 mg PO BID gabapentin 300 mg capsule 300 mg PO QHS aspirin [Adult Low Dose Aspirin] 81 mg tablet,delayed release (DR/EC) 81 mg PO DAILY Discontinued donepezil 5 mg tablet 5 mg PO QHS Other Ambulatory Orders: 30 Day Event Recorder Preventi (Urgent) Timeframe: 1 Day Facility: [facility] - Location: Cardiovascular Services Ordered By: Dr. Carlito Recio Referrals / Follow Up: Lowell Johnson MD [Primary Care Provider] - See Referral Note (In 2 weeks, you will need referral to a neurologist for follow-up 30 days after your hospitalization) Disposition Disposition (needs filled in before D/C Order can be placed): Home, Self Care
--- NOTE | 2024-10-21 14:55 | CASEMGMT ---
Met with patient to complete PARISH form. PARISH form explained to patient who voiced understanding and signed form. Original form placed in pt?s chart and copy provided to patient. Magaly Zapata, Discharge Planning Asst
--- NOTE | 2024-10-21 15:03 | PCM.DC.SUM ---
Providers Date of Admission: 10/20/24 Date of Discharge: 10/21/24 Primary Care Physician: Dr. Lowell Malik MD Consultations 10/20/24 17:24 Consult: Tele-Neurology Routine Consulting Provider: [facility] Reason for Consult: Acute Ischemic Stroke/TIA EMERGENT Consult: No MD Notified: Yes Date Notified: 10/20/24 Time Notified: 18:52 Method of Notification: [facility] Service Nursing Unit Staff Notify [facility] of Tele-Neurology Consult: Yes Reason For Visit: CVS RULE OUT Diagnosis Discharge Diagnosis (1) Left leg weakness: Status: Acute Code(s): R29.898 - Other symptoms and signs involving the musculoskeletal system Plan 1. Acute ischemic stroke right frontal area #2 coronary artery disease #3 GERD #4 essential hypertension Medications at Discharge Home Medications amlodipine 10 mg tablet 10 mg PO DAILY 07/04/21 atorvastatin 40 mg tablet 40 mg PO DAILY 07/04/21 duloxetine 30 mg capsule,delayed release 30 mg PO BID 07/04/21 metoprolol tartrate 25 mg tablet 25 mg PO BID 07/04/21 acetaminophen 500 mg capsule 500 mg PO Q6H PRN Pain 10/11/22 docusate sodium 100 mg capsule 100 mg PO BID PRN Constipation 10/11/22 magnesium 200 mg tablet 200 mg PO DAILY 10/11/22 melatonin 5 mg tablet 15 mg PO QHS PRN Insomnia 10/11/22 omeprazole 40 mg capsule,delayed release 40 mg PO DAILY PRN GERD 10/11/22 aspirin 81 mg tablet,delayed release (Adult Low Dose Aspirin) 81 mg PO DAILY 03/14/23 gabapentin 300 mg capsule 300 mg PO QHS 10/20/24 clopidogrel 75 mg tablet (Plavix) 75 mg PO DAILY #21 tabs 10/21/24 Hospital Course Operations None Procedures 2-D Echocardiogram Summary of Care Provided Minutes Spent on Discharge: 31 Hospital Course: This 79-year-old white male was seen in the emergency room at [facility] as a stroke alert, patient presented with left leg weakness, this was present when he woke up after going to bed at 7:30 PM the night before. Patient stated that the weakness was causing difficulty in ambulation. NIH was 1, CT of the head was negative for acute intracranial process, teleneurology saw the patient and the case was discussed, the patient was not a TNK candidate. CTA of the head and neck showed no LVO AVM or aneurysm. Patient was placed in observation status on PCU and seen by PT and OT, echocardiogram was obtained which showed no [id number] shunt in the atrium. MRI was performed which showed multiple small ischemic strokes in the right frontal area. I talked to teleneurology concerning treatment for this, also talked with his PCP to let him know the patient's medical course. He was not felt to need any follow-up with PT and OT. On 10/21/24, patient was seen and examined: On examination he appeared in good health and spirits. Vital signs as documented. Skin warm and dry and without overt rashes. Neck without JVD, neck was supple, trachea midline, thyroid was normal. Lungs clear bilaterally, normal air movement was noted. Heart exam notable for regular rhythm, normal sounds and absence of murmurs, rubs or gallops. Abdomen unremarkable and without evidence of organomegaly, masses, or abdominal aortic enlargement. Bowel sounds are present, abdomen is not distended. Extremities nonedematous, no cyanosis was noted, no clubbing was noted. Neuro: Cranial nerves II through XII are grossly intact, no focal motor deficits were noted, sensation to light touch and pinprick intact, motor exam 5/5 throughout. Psych: Patient is alert and oriented x3, he does not appear anxious or depressed, he does not appear agitated. Patient was felt to be stable for discharge home on 10/21/2024. Weight / BMI Weight Weight: 91.9 kg Body Mass Index (BMI) 34.7 ABG / Lab / Microbiology Data 10/21/24 07:30 10/21/24 07:30 Laboratory: Laboratory Results - last 24 hr 10/20/24 09:45: Urine Color Yellow, Urine Clarity Clear, Urine pH 7.0, Ur Specific [place] 1.010, Urine Protein 30 H, Urine Glucose (UA) Normal, Urine Ketones Negative, Urine Occult Blood Negative, Urine Nitrite Negative, Urine Bilirubin Negative, Urine Urobilinogen Normal, Ur Leukocyte Esterase Negative, Urine RBC 0 SEEN, Urine WBC 0 SEEN, Ur Squamous Epith Cells 0 SEEN, Urine Bacteria 0 SEEN, Urine Mucus 0 SEEN 10/20/24 16:51: Troponin T Hi Sens 2 Hr 14 10/20/24 18:21: POC Glucose 122 H 10/21/24 05:49: POC Glucose 98 10/21/24 07:30: WBC 5.5, RBC 4.88, Hgb 14.3, Hct 43.3, MCV 88.7, MCH 29.3, MCHC 33.0, RDW Std Deviation 41.3, RDW Coeff of Alexander 12.6, Plt Count 142 L, MPV 9.6, Immature Gran % (Auto) 0.200, Neut % (Auto) 58.1, Lymph % (Auto) 27.9, [place] % (Auto) 11.4 H, Eos % (Auto) 2.0, Baso % (Auto) 0.4, Absolute Neuts (auto) 3.2, Absolute Lymphs (auto) 1.54, Nucleated RBC % 0, Sodium 139, Potassium 4.6, Chloride 102, Carbon Dioxide 27.9, Anion Gap 9, BUN 18, Creatinine 1.19, Estim Creat Clear Calc 53.15, Est GFR (MDRD) Non-Af 63, BUN/Creatinine Ratio 15.2, Glucose 103 H, Hemoglobin A1c 5.8 H, Calcium 8.8, Triglycerides 277 H, Cholesterol 118, LDL Cholesterol, Calc 32, VLDL Cholesterol 55 H, HDL Cholesterol 31 L, Cholesterol/HDL Ratio 3.83, TSH 2.740 10/21/24 11:18: POC Glucose 165 H Radiography Diagnostic Testing: Radiology Impression Head/Neck CTA 10/20/24 14:09 IMPRESSION: 1. No large vessel occlusion, AVM or aneurysm. 2. 30% stenosis of the right and 50% stenosis of the left carotid arteries by NASCET criteria. Surgical clips along the left common carotid artery, most compatible with prior endarterectomy. 3. 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 Reading Location: [facility] Chest X-Ray 10/20/24 15:09 IMPRESSION: Cardiomegaly. The lungs are clear. Reading Location: [facility] Brain MRI 10/20/24 17:24 IMPRESSION: 1. Multiple small foci of acute/subacute ischemia along the right periventricular white matter and subcortical right frontal lobe. 2. Mild chronic small-vessel ischemic disease. Reading Location: [facility] Echocardiogram 10/20/24 17:24 Interpretation Summary Normal LV size. Left ventricular systolic function is normal. The left ventricular ejection fraction is 55 %. Bubble contrast study negative for right to left interatrial shunt. Ordering Physician: Judy Aguilar Referring Physician: MARIA MALIK Performed By: Melissa Gomez, GORAN, RVT D/C Instructions Discharge Diet: No restrictions Weight Bearing Status: Full weight bearing DC O2, CPAP, BIPAP Needs Home O2 Discharge instructions: No Meaningful Use Info Meaningful Use Meaningful Use Diagnoses (Choose all that apply): Ischemic CVA CVA Therapy Assessed for PT,OT and/or ST?: Yes Ischemic Stroke Antithrombotic order at d/c?: Yes Dx of Atrial fib/flutter?: No Anticoagulant at discharge?: No Reason anticoagulant not ordered: Treatment not Indicated Statin Dosing Therapy Reference: STATIN DOSE THERAPY REFERENCE: * Patients > 75 years receive moderate or high dose statin therapy. * Patients 75 years or YOUNGER should receive HIGH intensity statin dose unless contraindicated. You will be required to document reason for non-treatment if statin daily dose does not meet guidelines. HIGH DOSE STATIN THERAPY DAILY Atorvastatin > than or = to 40 mg Rosuvastatin > than or = to 20 mg Amlodipine + Atorvastatin > than or = to 2.5/40 mg Ezetimibe + Simvastatin 10/80 mg Simvastatin 80mg Statins at discharge?: Yes Primary Dx Acute Ischemic CVA?: Yes IV thrombolytic ordered during stay?: No Reason IV thrombolytic not ordered: Treatment not Indicated Discharge Plan Admission Admit Date/Time: 10/20/24 15:52 Primary Reason for Your Visit: acute stroke Attending Provider: Carlito Recio Primary Care Provider: Lowell Malik Consulting Providers: Zak Cadena; Rodo Eid; Lacy Barry; Radha Samaniego; Maria Elena Duckworth; Wes Chang; Zayda Pastor; Colt Stoddard; Ventura Claros; Kirk Castellon; Adrienne Hirsch; Mike Pan; Otilia Simons; Carly Krishnamurthy; Bianca Henderson; Ge Goldsmith; Dinesh Mendiola; Dominick Sterling; Kiley Myrick; Taj Mendiola; Judy Aguilar Instructions Additional Instructions / Restrictions: Remain on memantine 10 mg twice a day Discharge Orders/Prescriptions Prescriptions: New clopidogrel [Plavix] 75 mg tablet 75 mg PO DAILY Qty: 21 0RF Rx Instructions: Started on 10/22/2024 Continued acetaminophen 500 mg capsule 500 mg PO Q6H PRN (Reason: Pain) docusate sodium 100 mg capsule 100 mg PO BID PRN (Reason: Constipation) magnesium 200 mg tablet 200 mg PO DAILY melatonin 5 mg tablet 15 mg PO QHS PRN (Reason: Insomnia) omeprazole 40 mg capsule,delayed release(DR/EC) 40 mg PO DAILY PRN (Reason: GERD) atorvastatin 40 mg tablet 40 mg PO DAILY amlodipine 10 mg tablet 10 mg PO DAILY metoprolol tartrate 25 mg tablet 25 mg PO BID duloxetine 30 mg capsule,delayed release(DR/EC) 30 mg PO BID gabapentin 300 mg capsule 300 mg PO QHS aspirin [Adult Low Dose Aspirin] 81 mg tablet,delayed release (DR/EC) 81 mg PO DAILY Discontinued donepezil 5 mg tablet 5 mg PO QHS Other Ambulatory Orders: 30 Day Event Recorder Preventi (Urgent) Timeframe: 1 Day Facility: [facility] - Location: Cardiovascular Services Ordered By: Dr. Carlito Recio Referrals / Follow Up: Lowell Malik MD [Primary Care Provider] - See Referral Note (In 2 weeks, you will need referral to a neurologist for follow-up 30 days after your hospitalization) Disposition Disposition (needs filled in before D/C Order can be placed): Home, Self Care Charges/Coding Visit Charges Inpatient E&M: 90807 Disch Hosp >30min
--- NOTE | 2024-10-21 15:30 | STROKE.CONS ---
Assessment and Plan: Stroke Assessment/Plan ASHLEY LOPEZ is a 79 M with a history of CAD s/p triple bypass on ASA, HTN, HLD, CATIE, GERD who presents for evaluation of LLE weakness, now improved, found to scattered small acute to subacute infarcts in the R frontal robe within the R MCA vascular territory. Neurological examination shows NIHSS 0. Symptoms have improved. Neuroimaging with MRI consistent with acute to subacute infarcts. CTA with bilateral ICAD without severe flow limiting critical stenosis in the R ICA. TTE pending. LDL and A1C are pending. Recommendations: ? Follow up TTE, LDL, A1c. 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 ? Occupational/Physical therapy consult ? DVT prophylaxis with SCDs and heparin SQ. ? Permissive hypertension to goal SBP < 220 mm Hg x 24 hours complete, would recommend gradual normotension as of now. Would recommend blood pressure cuff at discharge and ensure he is closely following his BP daily. ? Anti-platelet medication: Continue home ASA 81mg daily. Load Plavix 300 mg now, followed by DAPT with ASA 81 mg + Plavix 75 mg daily x 21 days, followed by ASA monotherapy. Duration increase of DAPT will depend on vessel imaging at follow up, but for now would do 21 days. ? Stroke education ? Vascular risk factor modification: ? Hyperlipidemia:? LDL Goal < 70 mg/dL, continue high intensity statin Recommend Neurology and Vascular Surgery follow up in 4-6 weeks after discharge with follow up carotid duplex at that time. Recommend PCP follow up within 1-2 weeks for vascular risk factor modification surveillance. HPI Consult Data Date of Consult: 10/21/24 HPI Narrative HPI Narrative: ASHLEY LOPEZ, is a 79 M who presents with an episode of Left lower extremity weakness. The patient reports that he went to bed at 7:30 pm on 10/19 in his normal state of health. He woke up on 10/20 and noted as he was getting up to go to the bathroom his left leg was dragging. He then presented for evaluation. Since then he has reported improvement in his weakness. He denies headache, vision changes, speech changes, numbness or any other focal areas of weakness. He denies history of stroke, but does state he has high blood pressure and at times it can be high. [facility] Medical History Postoperative urinary retention Wears glasses Dietary restriction Non-smoker History of edema History of echocardiogram Closed fracture of left proximal humerus Abnormal stress test Mild cognitive impairment Depression Renal insufficiency Peripheral neuropathy CATIE (obstructive sleep apnea) Insomnia Hyperlipidemia GERD (gastroesophageal reflux disease) Chronic idiopathic constipation Atherosclerosis of coronary artery of [place] heart without angina pectoris BPH (benign prostatic hyperplasia) CPAP (continuous positive airway pressure) dependence History of stress test Hypertension History of heart attack Cardiology follow-up encounter Home Medications ?Medication ?Instructions ?Recorded ?Last Taken ?Type amlodipine 10 mg tablet 10 mg PO DAILY 07/04/21 10/20/24 History atorvastatin 40 mg tablet 40 mg PO DAILY 07/04/21 10/20/24 History duloxetine 30 mg capsule,delayed 30 mg PO BID 07/04/21 10/20/24 History release metoprolol tartrate 25 mg tablet 25 mg PO BID 07/04/21 10/20/24 History acetaminophen 500 mg capsule 500 mg PO Q6H PRN Pain 10/11/22 10/19/24 History docusate sodium 100 mg capsule 100 mg PO BID PRN Constipation 10/11/22 Unknown History magnesium 200 mg tablet 200 mg PO DAILY 10/11/22 10/20/24 History melatonin 5 mg tablet 15 mg PO QHS PRN Insomnia 10/11/22 10/19/24 History omeprazole 40 mg capsule,delayed 40 mg PO DAILY PRN GERD 10/11/22 Unknown History release aspirin 81 mg tablet,delayed 81 mg PO DAILY 03/14/23 10/20/24 History release (Adult Low Dose Aspirin) gabapentin 300 mg capsule 300 mg PO QHS 10/20/24 10/19/24 History clopidogrel 75 mg tablet (Plavix) 75 mg PO DAILY #21 tabs 10/21/24 Unknown Rx Allergy/AdvReac Type Severity Reaction Status Date / Time Penicillins (PCN) Allergy Other Verified 11/20/23 09:00 Family History Mother Diabetes Father Heart disease Surgical History History of left shoulder replacement (~03/11/23) History of transurethral resection of prostate History of colonoscopy History of coronary artery bypass graft x 3 (~08/02/09) History of carpal tunnel surgery Failed CABG (coronary artery bypass graft) History of cardiac catheterization History of bunionectomy Hx laparoscopic cholecystectomy (~05/30/21) History of carotid endarterectomy History of open heart surgery Social History Smoking Status: Never smoker alcohol intake: never Vital Signs Vital Signs Vital Signs: 10/20/24 16:51 10/20/24 17:25 10/20/24 17:45 Temperature 97.6 F L 97.9 F 97.8 F Temperature Source Oral Oral Pulse Rate 57 L 58 L 52 L Respiratory Rate 14 17 16 Respiratory Effort Respiratory Depth Respiratory Pattern Blood Pressure 139/83 H 148/66 H 144/71 H Blood Pressure Mean 101 93 95 Blood Pressure Source Monitor Monitor Blood Pressure Position Semi-Fowlers Semi-Fowlers Blood Pressure Location Left Arm Right Arm Pulse Ox 99 98 97 Oxygen Delivery Method Room Air Room Air 10/20/24 17:45 10/20/24 20:24 10/20/24 21:39 Temperature 98 F Temperature Source Oral Pulse Rate 50 L Respiratory Rate 16 Respiratory Effort Normal Non-Labored Respiratory Depth Normal Respiratory Pattern Normal Blood Pressure 170/70 H Blood Pressure Mean 103 Blood Pressure Source Monitor Blood Pressure Position Semi-Fowlers Blood Pressure Location Left Arm Pulse Ox 96 97 Oxygen Delivery Method Room Air Room Air Room Air 10/20/24 22:00 10/21/24 01:39 10/21/24 05:39 Temperature 98 F 98.2 F Temperature Source Temporal Temporal Pulse Rate 60 68 Respiratory Rate 16 16 Respiratory Effort Normal Non-Labored Respiratory Depth Normal Respiratory Pattern Blood Pressure 175/70 H 153/64 H Blood Pressure Mean 105 93 Blood Pressure Source Monitor Monitor Blood Pressure Position Semi-Fowlers Semi-Fowlers Blood Pressure Location Left Arm Right Arm Pulse Ox 95 94 Oxygen Delivery Method Room Air Room Air Room Air 10/21/24 07:16 10/21/24 09:23 10/21/24 13:23 Temperature 97.6 F L 97.8 F Temperature Source Oral Oral Pulse Rate 61 79 Respiratory Rate 16 16 Respiratory Effort Respiratory Depth Respiratory Pattern Blood Pressure 146/61 H 141/63 H Blood Pressure Mean 89 89 Blood Pressure Source Monitor Monitor Blood Pressure Position Semi-Fowlers Sitting Blood Pressure Location Right Arm Left Arm Pulse Ox 93 97 97 Oxygen Delivery Method Room Air Room Air Room Air Weight Weight: 91.9 kg Body Mass Index (BMI) 34.7 EEG Results Procedure Details EEG Procedure Details: ASHLEY LOPEZ is a 79 year old M with a past medical history of , who presents for evaluation of Electroencephalogram on DATE at TIME Lab / Micro Data 10/21/24 07:30 10/21/24 07:30 Labs: Laboratory Results - last 24 hr 10/20/24 09:45: Urine Color Yellow, Urine Clarity Clear, Urine pH 7.0, Ur Specific [place] 1.010, Urine Protein 30 H, Urine Glucose (UA) Normal, Urine Ketones Negative, Urine Occult Blood Negative, Urine Nitrite Negative, Urine Bilirubin Negative, Urine Urobilinogen Normal, Ur Leukocyte Esterase Negative, Urine RBC 0 SEEN, Urine WBC 0 SEEN, Ur Squamous Epith Cells 0 SEEN, Urine Bacteria 0 SEEN, Urine Mucus 0 SEEN 10/20/24 16:51: Troponin T Hi Sens 2 Hr 14 10/20/24 18:21: POC Glucose 122 H 10/21/24 05:49: POC Glucose 98 10/21/24 07:30: WBC 5.5, RBC 4.88, Hgb 14.3, Hct 43.3, MCV 88.7, MCH 29.3, MCHC 33.0, RDW Std Deviation 41.3, RDW Coeff of Alexander 12.6, Plt Count 142 L, MPV 9.6, Immature Gran % (Auto) 0.200, Neut % (Auto) 58.1, Lymph % (Auto) 27.9, [place] % (Auto) 11.4 H, Eos % (Auto) 2.0, Baso % (Auto) 0.4, Absolute Neuts (auto) 3.2, Absolute Lymphs (auto) 1.54, Nucleated RBC % 0, Sodium 139, Potassium 4.6, Chloride 102, Carbon Dioxide 27.9, Anion Gap 9, BUN 18, Creatinine 1.19, Estim Creat Clear Calc 53.15, Est GFR (MDRD) Non-Af 63, BUN/Creatinine Ratio 15.2, Glucose 103 H, Hemoglobin A1c 5.8 H, Calcium 8.8, Triglycerides 277 H, Cholesterol 118, LDL Cholesterol, Calc 32, VLDL Cholesterol 55 H, HDL Cholesterol 31 L, Cholesterol/HDL Ratio 3.83, TSH 2.740 10/21/24 11:18: POC Glucose 165 H Imaging Radiology Impression Brain MRI 10/20/24 17:24 IMPRESSION: 1. Multiple small foci of acute/subacute ischemia along the right periventricular white matter and subcortical right frontal lobe. 2. Mild chronic small-vessel ischemic disease. Reading Location: [facility] Echocardiogram 10/20/24 17:24 Interpretation Summary Normal LV size. Left ventricular systolic function is normal. The left ventricular ejection fraction is 55 %. Bubble contrast study negative for right to left interatrial shunt. Ordering Physician: Judy Aguilar Referring Physician: MARIA MALIK Performed By: Melissa Gomez, VIRACS, RVT Active Medications Active Medications Active Medications: Current Medications Generic Name Dose Route Start Last Admin Trade Name Freq PRN Reason Stop Dose Admin Acetaminophen 650 mg 10/20/24 17:24 Acetaminophen 325 Mg Tablet PO Q6H PRN PRN Pain 1-10 Or Fever >100.7 Albuterol Sulfate 2.5 mg 10/20/24 17:24 Albuterol 2.5 Mg/3 Ml Vial.Neb. INHALATION Q2H PRN PRN SOB &/OR WHEEZING Aspirin 81 mg 10/21/24 08:00 10/21/24 09:39 Aspirin 81 Mg Tab.Chew PO 81 mg BREAKFAST ALESSANDRA Administration Atorvastatin Calcium 40 mg 10/20/24 22:00 10/20/24 21:53 Atorvastatin Calcium 40 Mg Tablet PO 40 mg QHS ALESSANDRA Administration Duloxetine HCl 30 mg 10/20/24 22:00 10/21/24 09:38 Duloxetine Hcl 30 Mg Capsule PO 30 mg BID ALESSANDRA Administration Gabapentin 300 mg 10/20/24 22:00 10/20/24 21:53 Gabapentin 300 Mg Capsule PO 300 mg QHS ALESSANDRA Administration Glucagon 1 mg 10/20/24 17:24 Glucagon 1 Mg/Ml Syringe IM X1 PRN HYPOGLYCEMIA Protocol Dextrose 250 mls @ 0 mls/hr 10/20/24 17:24 Dextrose 10%-Water IV .Q0M PRN HYPOGLYCEMIA Protocol As Directed Insulin Human Lispro 0 unit 10/20/24 17:24 10/21/24 12:24 Insulin Lispro 100 Unit/Ml Insuln.Pen SC Not Given TIDAC ALESSANDRA Protocol Labetalol HCl 10 - 20 mg 10/20/24 17:24 Labetalol 20mg/4ml Syringe IV 10/21/24 17:24 Q10M PRN PRN maintain BP parameters with HR >/=60 Melatonin 10 mg 10/20/24 17:24 Melatonin 10 Mg Tablet PO QHS PRN PRN INSOMNIA Ondansetron HCl 4 mg 10/20/24 17:24 Ondansetron 4 Mg/2 Ml Vial IV Q8H PRN PRN NAUSEA/VOMITING Pantoprazole Sodium 40 mg 10/20/24 17:24 Pantoprazole Sodium 40 Mg Tablet PO DAILY PRN GERD Senna/Docusate Sodium 2 tablet 10/20/24 17:24 Senna/Docusate Sodium 1 Tablet PO BID PRN PRN Constipation Sodium Chloride 10 - 40 ml 10/20/24 17:36 0.9% Saline Lock 10 Ml Syringe IV UD PRN SALINE FLUSH NIHSS NIHSS Nursing Documentation NIHSS Nursing Documentation: NIHSS: Ischemic Stroke/TIA Start: 10/20/24 17:24 Text: For PCU Patients: NIH and Neuro Check every 4 Status: Active hours, PRN and with change in RN caregiver. Freq: [id number] Protocol: Activity Type Activity Date Activity User E-sign Co-sign Detail Recorded Client Recorded Date Recorded By Document 10/21/24 13:23 SS [id number] 10/21/24 14:45 SS 10/21/24 13:23 NIH Stroke Scale [NIHSS] A score of 0 is normal or asymptomatic . Total possible score is 42. Inpatient: RN or Physician to activate a stroke alert for onset of new stroke symptoms or with NIHSS increase >/= 3 points. Following change in neurological status, NIHSS will be performed per physician order or more frequently PRN. -1a. Level of Consciousness 0 - Alert; keenly responsive -1b. LOC Questions 0 - Answers BOTH questions correctly -1c. LOC Commands 0 - Performs BOTH tasks correctly -2. Best Gaze 0 - Normal -3. Visual 0 - No visual loss -4. Facial Palsy 0 - Normal symmetrical movements -5a. Left Arm 0 - No drift; arm holds 90 ( or 45) degrees for full 10 seconds -'UN' explanation prev left shoulder rotator cuff sx -5b. Right Arm 0 - No drift; arm holds 90 ( or 45) degrees for full 10 seconds -6a. Left Leg 1 - Drift; leg falls by the end of 5- seconds, but does not hit bed -6b. Right Leg 0 - No drift; leg holds 30- degree position for full 5 seconds -7. Limb Ataxia 1 - Present in 1 limb -8. Sensory 0 - Normal; no sensory loss -9. Best Language 0 - No aphasia; normal -10. Dysarthria 0 - Normal -11. Extinction and Inattention 0 - No abnormality -Total 2 Query Text:A score of 0 is normal or asymptomatic. Total possible score is 42 . ED: Notify Physician for NIHSS increase by > / = 3 points. Inpatient: RN or Physician to activate a stroke alert for NIHSS increase of > / = 3 points. Coma Scale [Assess] -Eye Opening Spontaneous -Motor Obeys Commands -Verbal Oriented [Total] -Coma Scale Total 15 NIHSS 1a. Level of Consciousness: 0 - Alert; keenly responsive 1b. LOC Questions: 0 - Answers BOTH questions correctly 1c. LOC Commands: 0 - Performs BOTH tasks correctly 2. Best Gaze: 0 - Normal 3. Visual: 0 - No visual loss 4. Facial Palsy: 0 - Normal symmetrical movements 5a. Left Arm: 0 - No drift; arm holds 90 (or 45) degrees for full 10 seconds 5b. Right Arm: 0 - No drift; arm holds 90 (or 45) degrees for full 10 seconds 6a. Left Le - No drift; leg holds 30-degree position for full 5 seconds 6b. Right Le - No drift; leg holds 30-degree position for full 5 seconds 7. Limb Ataxia: 0 - Absent 8. Sensory: 0 - Normal; no sensory loss 9. Best Language: 0 - No aphasia; normal 10. Dysarthria: 0 - Normal 11. Extinction and Inattention: 0 - No abnormality Total: 0
--- NOTE | 2024-10-21 15:43 | CASEMGMT ---
RAZA WHITLOCK NOTE: DC order is in. Pt to f/u with PCP in 2 weeks and to get a referral to a neurologist. Pt also to get a 30-day event monitor. PT/OT evals reviewed. Per PT, pt declining OP therapy. RAZA WHITLOCK to room. Pt resting in bed. Introduced self and role. Pt verifies he does not want any OP therapy, stating he plans to get home and wants to get back into his normal routine to get his strength back. RAZA WHITLOCK informed him to f/u with PCP if he changes his mind about OP therapy. He voices understanding. Pt aware plavix has been e-scribed to [facility] in [place]. He would like to get it @ [facility] retail pharmacy, declines wanting [id number]. Call placed to Yoana and she was made aware. Pt states his will be taking him home today. He declines having any other discharge needs or concerns. Uche AGUILAR RN, CM
[2024-10-21 15:58] VITALS: BMI 34.7
--- NOTE | 2024-10-21 16:22 | PHA.DC.MC.R ---
Pharmacy [facility] has performed discharge medication reconciliation and counseling for this patient. 1. CLOPIDOGREL 75MG PO DAILY X 21 DAYS The patient's discharge medication list was reviewed for discrepancies and discrepancies were resolved. The patient was counseled on the following discharge medications and changes in medications for homegoing were reviewed. The Reason for Use, instructions for use, and potential side effects were reviewed for all new medications. The patient's questions regarding all of their medications were answered. The patient was able to verbally demonstrate an understanding of their discharge medications. Medications at Discharge Home Medications amlodipine 10 mg tablet 10 mg PO DAILY 07/04/21 atorvastatin 40 mg tablet 40 mg PO DAILY 07/04/21 duloxetine 30 mg capsule,delayed release 30 mg PO BID 07/04/21 metoprolol tartrate 25 mg tablet 25 mg PO BID 07/04/21 acetaminophen 500 mg capsule 500 mg PO Q6H PRN Pain 10/11/22 docusate sodium 100 mg capsule 100 mg PO BID PRN Constipation 10/11/22 magnesium 200 mg tablet 200 mg PO DAILY 10/11/22 melatonin 5 mg tablet 15 mg PO QHS PRN Insomnia 10/11/22 omeprazole 40 mg capsule,delayed release 40 mg PO DAILY PRN GERD 10/11/22 aspirin 81 mg tablet,delayed release (Adult Low Dose Aspirin) 81 mg PO DAILY 03/14/23 gabapentin 300 mg capsule 300 mg PO QHS 10/20/24 clopidogrel 75 mg tablet (Plavix) 75 mg PO DAILY #21 tabs 10/21/24
== END 2024-10-21 16:40 | disposition home or self-care (01) ==
LOC: ED 14:26 → PCU 16:39
PROVIDERS: Admitting Provider Internal Medicine; Emergency Provider Surgery; PCP Family Medicine; Visit Provider Internal Medicine
DX: I63.9 Cerebral infarction, unspecified (principal); G83.14 Monoplegia of lower limb affecting left nondominant side; R29.701 NIHSS score 1; G62.9 Polyneuropathy, unspecified; I25.10 Atherosclerotic heart disease of native coronary artery without angina pectoris; I10 Essential (primary) hypertension; E78.5 Hyperlipidemia, unspecified; G47.33 Obstructive sleep apnea (adult) (pediatric); Z79.82 Long term (current) use of aspirin; Z79.899 Other long term (current) drug therapy; I25.2 Old myocardial infarction; Z95.1 Presence of aortocoronary bypass graft
CPT/HCPCS: 36415; 70450; 70496; 70498; 70551; 71045; 80048; 80061; 81001; 82962; 83036; 83735; 84443; 84484; 85025; 85610; 85730; 92610; 93005; 93306; 94762; 97162; 97166; 97802; 99221; 99285; Q9957; Q9967; C8929; G0378

== ENCOUNTER → 2024-12-01 | Outpatient (CLI) | payer MEDICARE, SELFPAY ==
--- NOTE | 2024-12-01 08:31 | CDU_ITS ---
Reason For Study Reason For Study: Stenosis Rt. Velocities/BP Lt. Velocities/BP Prox CCA 62.6/6 cm/sec. Prox CCA 71/14.5 cm/sec. Mid CCA 60.7/12.6 cm/sec. Mid CCA 79.6/15.4 cm/sec. Dist CCA 70.2/14.5 cm/sec. Dist CCA 77.8/9.7 cm/sec. Prox ICA 165.3/22.6 cm/sec. Prox ICA 107.2/13.9 cm/sec. Mid ICA 134.6/16 cm/sec. Mid ICA 109.7/18.8 cm/sec. Dist ICA 104.7/17 cm/sec. Dist ICA 74/16.3 cm/sec. Rt. ICA/CCA = 2.72. Lt. ICA/CCA = 1.38. Prox ECA 104.7/5.3 cm/sec. Prox ECA 117/9 cm/sec. Rt. Vert. 48.5/8.8 cm/sec. Lt. Vert. 39.5/6.4 cm/sec. Right Extracranial There is intimal thickening but no significant atherosclerotic plaque noted in the right common carotid artery. There is heterogeneous, irregular atherosclerotic plaque noted in the right internal carotid artery. There is heterogeneous, irregular atherosclerotic plaque noted in the right external carotid artery. Antegrade flow is noted in the right vertebral artery. Left Extracranial There is homogeneous, smooth atherosclerotic plaque noted in the left common carotid artery. There is heterogeneous, irregular atherosclerotic plaque noted in the left internal carotid artery. There is heterogeneous, irregular atherosclerotic plaque noted in the left external carotid artery. Antegrade flow is noted in the left vertebral artery. Procedure Carotid Duplex 46428. This is a Carotid Duplex examination using B-mode, color flow and specral Doppler. Exam performed in department. VL/Carotid Duplex Ultrasound Interpretation Summary Moderate (50-69%) stenosis right extracranial internal carotid. Mild (<50%) stenosis left extracranial internal carotid. Patent and antegrade vertebrals bilaterally. Ordering Physician: Radha Salazar Referring Physician: Sacha Johnson Performed By: Radha Molina RVT
== END | disposition home or self-care (01) ==
PROVIDERS: PCP Family Medicine; Referring Provider Physician Assistant; Visit Provider Physician Assistant
DX: I65.23 Occlusion and stenosis of bilateral carotid arteries (principal)
CPT/HCPCS: 93880

== ENCOUNTER → 2025-01-18 | Outpatient (CLI) | payer MEDICARE, SELFPAY ==
[2025-01-18 11:34] LABS: Anion Gap 11 (5-15); BUN 30 mg/dL (4-19); BUN/Creat Ratio 25.6 RATIO (10-20); Calcium,Total 9.1 mg/dL (7.6-11.0); Carbon Dioxide 25.8 mmol/L (21.0-32.0); Chloride 105 mmol/L (98-108); Glucose 119 mg/dL (70-99); Potassium 4.3 mmol/L (3.3-5.1)
== END | disposition home or self-care (01) ==
LOC: LAB 09:39
PROVIDERS: PCP Family Medicine; Referring Provider Internal Medicine Cardiovascular Disease; Visit Provider Internal Medicine Cardiovascular Disease
DX: I10 Essential (primary) hypertension (principal); Z86.73 Personal history of transient ischemic attack (TIA), and cerebral infarction without residual deficits
CPT/HCPCS: 36415; 80048

== ENCOUNTER 2025-01-27 06:53 | Day surgery (SDC) | payer MEDICARE, SELFPAY ==
[2025-01-26 11:10] VITALS: BMI 35.2
--- NOTE | 2025-01-27 06:53 | HP_ITS ---
HPI History of Present Illness Details: Pleasant 79-year-old man who presents to the office today for cardiovascular hospital follow-up visit. He has a history of coronary artery disease status post coronary bypass graft surgery in 2009 with a DEGROOT to the LAD saphenous vein graft to diagonal branch and saphenous vein graft to the right coronary artery. He also has a history of hypertension, hyperlipidemia, mild renal insufficiency and a left carotid endarterectomy. He had a stress test in 2021 which demonstrated a previous inferior infarct and mild inferolateral and apical ischemia his ejection fraction was preserved medical therapy was recommended. Patient presented to the emergency room on 10/20/2024 with a stroke alert. He had presented with left leg weakness. His CTA of the head and neck showed no LVO/AVM/or aneurysm. There was 30% stenosis of the right carotid artery, 50% stenosis of the left carotid artery with probable tiny right carotid web with focal outpouching. He was admitted for further CVA workup. His brain MRI was consistent with acute to subacute infarcts. He was discharged home with a burning machine operator, which he brought in to have placed. It does not appear that the burning machine operator was conclusive and they tell me that he saw neurology and they are advocating an implantable loop recorder. He has been doing well otherwise. From a cardiac standpoint, the patient is doing well. He denies any palpitations, chest pain, pressure or heaviness. He denies SOB, Orthopnea, and PND. He does wear a CPAP nightly. He does not have bleeding issues; no blood in urine, stool, or nosebleeds. He denies myalgias, or claudication. He does not have edema, or sudden weight gain. He denies lightheadedness, dizziness, syncopal or near syncopal episodes, and headaches. He states that he does have blurred vision at times. Intake Vital Signs 11/20/2407:32 10/29/2509:38 01/18/2509:01 Height 5 ft 6 in 5 ft 4 in 5 ft 4 in Weight: 205 lb BMI 35.2 BP 131/68 H Blood Pressure Location Lt brachial Position Sitting Respiration 16 Pulse 44 L Pulse Source Monitor Intake Visit Reasons: [facility] Required: No Accompanied by: Significant Other Is patient in pain?: No Allergies Penicillins (PCN) Allergy (Verified 01/18/25 09:03) Other Medications ?Medication ?Instructions ?Recorded ?Confirmed ?Type amlodipine 10 mg tablet 10 mg PO DAILY 07/04/21 01/18/25 History duloxetine 30 mg capsule,delayed 30 mg PO BID 07/04/21 01/18/25 History release metoprolol tartrate 25 mg tablet 25 mg PO BID 07/04/21 01/18/25 History acetaminophen 500 mg capsule 500 mg PO Q6H PRN Pain 10/11/22 01/18/25 History docusate sodium 100 mg capsule 100 mg PO BID PRN Constipation 10/11/22 01/18/25 History melatonin 5 mg tablet 15 mg PO QHS PRN Insomnia 10/11/2201/18 History omeprazole 40 mg capsule,delayed 40 mg PO DAILY PRN GERD 10/11/22 5 History release gabapentin 300 mg capsule 300 mg PO QHS 10/20/24 01/18/25 History memantine 10 mg tablet 10 mg PO BID 10/29/24 01/18/25 History atorvastatin 80 mg tablet (Lipitor) 80 mg PO QHS #30 tabs 11/24/24 01/18/25 Rx aspirin 325 mg tablet 325 mg PO DAILY Reduce risk of 01/18/25 01/18/25 History stroke Have you fallen in the past year?: Yes PFSH Medical History CVA (cerebral vascular accident) Left leg weakness Postoperative urinary retention Wears glasses Dietary restriction Non-smoker History of edema History of echocardiogram Closed fracture of left proximal humerus Abnormal stress test Mild cognitive impairment Depression Renal insufficiency Peripheral neuropathy CATIE (obstructive sleep apnea) Insomnia Hyperlipidemia GERD (gastroesophageal reflux disease) Chronic idiopathic constipation Atherosclerosis of coronary artery of [place] heart without angina pectoris BPH (benign prostatic hyperplasia) CPAP (continuous positive airway pressure) dependence History of stress test Hypertension History of heart attack Cardiology follow-up encounter Surgical History S/p reverse total shoulder arthroplasty History of left shoulder replacement (~03/11/23) History of transurethral resection of prostate History of colonoscopy History of coronary artery bypass graft x 3 (~08/02/09) History of carpal tunnel surgery Failed CABG (coronary artery bypass graft) History of cardiac catheterization History of bunionectomy Hx laparoscopic cholecystectomy (~05/30/21) History of carotid endarterectomy History of open heart surgery Family History Mother DiabetesFather Heart disease Social History Smoking Status: Never smoker alcohol intake: never substance use type: does not use ROS Const Const: Negative for fatigue, weakness, headache(s), daytime sleepiness or difficulty sleeping ENT ENT: Negative for headache(s), dizziness or Nosebleed/epistaxis Cardio Chest Pain: No Palpitations: No Edema: None Resp Respiratory: Negative for SOB with activity, SOB at rest, SOB orthopnea\SOB lying down or Cough GI GI: Negative nausea, vomiting or heartburn Neuro Neuro: Negative for dizziness, lightheadedness, near syncope, headache(s) or weakness Endo Endo: Negative for fatigue Cardiology Exam Const Appearance: cooperative, healthy appearing, comfortable and no acute distress Nutritional Appearance: well nourished and obese Orientation: alert, awake and oriented x3 Head Head: normal to inspection Ears: hearing grossly normal bilaterally Nose: external nose normal Face and Sinus: face symmetric Eyes General: appearance normal, both eyes and all related structures Eyelids: eyelids normal EOM: EOM intact bilaterally Neck Neck: normal visual inspection and no JVD Carotids: normal carotid upstroke Chest Chest inspection: normal inspection of the chest, symmetric chest movement and normal respiratory effort; Negative cough Auscultation: Bilateral: Clear to Auscultation Cardio Rate: regular rate Rhythm: regular rhythm Heart sounds: S1 normal and S2 normal; Negative rub, gallop or murmur GI GI: normal to inspection and obese Neuro General: patient alert, patient awake, patient oriented x3 and CN's II-XI intact bilaterally Skin Skin: no rashes or lesions noted Extremities Pulses: Normal: Right Posterior Tibial Pulse, Left Posterior Tibial Pulse, Right Radial Pulse and Left Radial Pulse Lower Extremity Edema: None: Bilateral Psych Psychological: normal affect Supplemental Info Supplemental Information Echocardiogram 10/20/2024: Interpretation Summary Normal LV size. Left ventricular systolic function is normal. The left ventricular ejection fraction is 55 %. Bubble contrast study negative for right to left interatrial shunt. ECHOCARDIOGRAM 12/09/22: Interpretation Summary Normal LV size. Left ventricular systolic function is normal. The estimated ejection fraction is 60 %. Stage 1 diastolic dysfunction. Pulmonary artery systolic pressure is 42 mmHg. Contrast injection was performed. Stress test from 12/09/2022: Conclusion: Abnormal exercise myocardial perfusion stress test at a low workload with inferior ischemia present Preserved ejection fraction. Heart catheterization from 12/17/2022: CONCLUSIONS Severe coronary artery disease with patent DEGROOT to the LAD severely diseased circumflex artery totally occluded right coronary artery. Saphenous vein graft to the right coronary artery is also noted to be effectively totally occluded. With preserved ejection fraction. CORONARY ANGIOGRAPHY DOMINANCE: Right Dominant LEFT HEART ASSESSMENT Left Ventricular Ejection Fraction: by Echo 60 % Normal LV wall motion Normal Left Ventricular systolic function LEFT MAIN: Mild calcification, No significant disease noted LEFT ANTERIOR DESCENDING ARTERY: Severely diseased vessel with proximal subtotal occlusion and then mid total occlusion CIRCUMFLEX ARTERY: Severely diseased vessel with normal proximal segment giving off a first small bifurcating obtuse marginal branch and then a subtotal occlusion and then a second bifurcating obtuse marginal branch noted. Distal faint filling is noted with some [id number] collaterals. RIGHT CORONARY ARTERY: PROX RCA: is occluded GRAFTS: DEGROOT graft to the Mid LAD is patent Saphenous Vein graft to the 1st Diagonal is totally occluded Saphenous Vein graft to the RCA The proximal bed is patent and then it is subtotally occluded reconstitutes and then is completely occluded. COLLATERAL FLOW: Collateral flow from Left to Right Carotid duplex ultrasound from 12/02/2022: Interpretation Summary Moderate (50-69%) stenosis right extracranial internal carotid. Mild (<50%) stenosis left extracranial internal carotid. Patent and antegrade vertebrals bilaterally. HOLTER REPORT 09/25/21-09/28/21: CONCLUSION Sinus rhythm with 7% PACs No atrial fibrillation No high degree AV block No significant bradycardia episodes Labs: HDL Cholesterol 31 mg/dL (40-) L Cholesterol 118 mg/dL (<=200) Triglycerides 277 mg/dL (-199) H Diagnostics: Electrocardiogram Echocardiogram Chest X-Ray Carotid Duplex Pulmonary: No Data to Display Past Visits: Cardiology Visit 01/18/25 Assessment and Plan Assessment and Plan (1) Atherosclerosis of coronary artery of [place] heart without angina pectoris: Status: Chronic Qualifiers: Coronary Disease-Associated Artery/Lesion type: [place] artery Qualified Code(s): I25.10 - Atherosclerotic heart disease of [place] coronary artery without angina pectoris Plan: Patient has a history of coronary artery disease with CABG in 2009. His most recent cardiac catheterization from November 2022 demonstrated patent DEGROOT to mid LAD, occluded SVG to first diagonal, and SVG to RCA with the proximal section patent and then subtotally occluded and then completely occluded. He was noted to have collateral flow from left to right. Medical therapy was recommended. He appears stable at this time, and denies any recent symptoms or events. He will continue with his current medical therapy, along with aggressive risk factor and lifestyle modifications. He will continue to monitor for any concerning symptoms. (2) Carotid stenosis: Status: Deleted Qualifiers: Laterality: bilateral Qualified Code(s): I65.23 - Occlusion and stenosis of bilateral carotid arteries Plan: Patient has a history of carotid artery stenosis. He is scheduled to follow with vascular for this. He will continue aspirin 81 mg daily, atorvastatin 40 mg daily, and Plavix 75 mg daily. (3) Hypertension: Status: Chronic Qualifiers: Hypertension type: primary hypertension Qualified Code(s): I10 - Essential (primary) hypertension Comment: PER PT, CONTROLLED ON MEDS Plan: Patient has a history of hypertension. His blood pressure is elevated in the office today. He was asked to monitor his blood pressures at home, and notify our office of readings in 1 to 2 weeks. Depending on readings, further recommendations will be made. At this time, he will continue amlodipine 10 mg daily, and metoprolol tartrate 25 mg twice daily. (4) Hyperlipidemia: Status: Chronic Qualifiers: Hyperlipidemia type: mixed hyperlipidemia Qualified Code(s): E78.2 - Mixed hyperlipidemia Plan: Patient has a history of hyperlipidemia. His PCP monitors this. His most recent lipid panel from 10/21/2024: Cholesterol 118, HDL 31, LDL 32, triglycerides 277. He will continue atorvastatin 40 mg daily, along with aggressive risk factor and lifestyle modifications. (5) CVA (cerebral vascular accident): Status: Acute Plan: His brain MRI was consistent with acute to subacute infarcts. The neurologist recommended an implantable loop recorder to look for any atrial fibrillation and we will place this in the near future. Orders: Orders 12 Lead EKG performed by BMS Today I63.9 - Cerebral infarction, unspecified Loop Recorder Today I63.9 - Cerebral infarction, unspecified Basic Metabolic Profile (BMP) Today I10 - Essential (primary) hypertension, I63.9 - Cerebral infarction, unspecified Plan Details Additional Comments: Patient will follow-up in 12 months, or sooner if needed. Thank you for allowing us to participate in the patients plan of care, if you have any questions please do not hesitate to call. This note was generated using a voice recognition system and there may be incorrect words, spelling or punctuation that were not noted when reviewing the office note prior to saving. Portions of this documentation were copied and pasted from previous office visit notes to provide a cohesive continuity of the history. The note has been reviewed, edited, and updated, as necessary. Follow Up: 1 Year (kr) Coding Level of Care Code Off vis,est,level 4 Diagnoses Atherosclerosis of [place] coronary artery of [place] heart without angina pectoris I25.10 Coronary Disease-Associated Artery/Lesion type: [place] artery Bilateral carotid artery stenosis I65.23 Laterality: bilateral Primary hypertension I10 Hypertension type: primary hypertension Mixed hyperlipidemia E78.2 Hyperlipidemia type: mixed hyperlipidemia CVA (cerebral vascular accident) I63.9 Coding Level of Care Code Off vis,est,level 4 Diagnoses Atherosclerosis of [place] coronary artery of [place] heart without angina pectoris I25.10 Coronary Disease-Associated Artery/Lesion type: [place] artery Bilateral carotid artery stenosis I65.23 Laterality: bilateral Primary hypertension I10 Hypertension type: primary hypertension Mixed hyperlipidemia E78.2 Hyperlipidemia type: mixed hyperlipidemia CVA (cerebral vascular accident) I63.9 Clinical Quality Measures Falls Risk Screening/Assistive Devices Have you fallen in the past year?: Yes
--- OUTSIDE RECORDS SUMMARY | 2025-01-27 06:58 | XMS RPT_ITS | CCD ---
Author Organization [facility] Care Team Providers Care Sales Mgr Name Role Phone Maria Malik Primary Care Provider Maria Malik Unavailable Unavailable Maria Malik Unavailable Unavailable Tony Fernandez Unavailable Unavailable Maria Malik Primary Care Provider Maria Malik Unavailable Unavailable Maria Malik MD Primary Care Provider Maria Malik Unavailable Unavailable Unavailable EJ BRADEN Admitting Unavail able EJ BRADEN Attending Unavail able MARIA MALIK Primary Care Unavaila Maria Barrientos Unavailable Ryan Renee Unavailable Kathy Duffy Unavailable Matty Swift Unavailable Ryan Renya Unavailable Maria Malik MD Primary Care Provider MARIA MALIK Primary Care Unavaila FELECIA Parikh Attending Unavailable MARIA MALIK Primary Care Unavaila FELECIA Parikh Attending Unavailable MARIA MALIK Primary Care Unavaila FELECIA Parikh Attending Unavailable MARIA MALIK Primary Care Unavaila TONY Gray Attending Unavailable FELECIA HAMILTON Attending Unavailable MARIA MALIK Primary Care Unavaila FELECIA Parikh Referring Unavailable MARIA MALIK Admitting Unavaila ble MARIA MALIK Primary Care Unavaila ble MARIA MALIK Admitting Unavaila ble MALIK, MARIA BRANDT Primary Care Unavaila ble MALIK, MARIA BRADNT Primary Care Unavaila ble HAMILTON, FELECIA GREENE Referring Unavailable HAMILTON, FELECIA GREENE Attending Unavailable HAMILTON, FELECIA GREENE Referring Unavailable HAMILTON, FELECIA GREENE Attending Unavailable MALIK, MARIA BRANDT Primary Care Unavaila ble HAMILTON, FELECIA GREENE Referring Unavailable HAMILTON, FELECIA GREENE Attending Unavailable MALIK, MARIA BRANDT Primary Care Unavaila ble MALIK, MARIA BRANDT Primary Care Unavaila ble HAMILTON, FELECIA GREENE Referring Unavailable HAMILTON, FELECIA GREENE Attending Unavailable HAMILTON, FELECIA GREENE Referring Unavailable HAMILTON, FELECIA GREENE Attending Unavailable MALIK, MARIA BRANDT Primary Care Unavaila ble Malik, Dr. Maria Brandt Primary Care Unav ailable Malik, Dr. Maria Brandt Referring Unav ailable Malik, Dr. Maria Brandt Attending Unav ailable Malik, Dr. Maria Brandt Referring Unav ailable Malik, Dr. Maria Brandt Attending Unav ailable Malik, Dr. Maria Brandt Primary Care Unav ailable Malik Maria HOLGUIN Primary Care Provider [phone] Maria Malik MD Unavailable Alex, Dr. Etienne Primary Care Provider Alex, Dr. Etienne Referring Provider Dr. Canelo Garcia Attending Provider [phone] Wilberto Doshi Attending Provider [phone] Kelly Whitley Attending Provider Unavailable Chi Ramey Unavailable Unavailable Dr. Canelo Garcia Referring Provider MD Dustin Mosqueda Attending Provider MD Dustin Mosqueda Referring Provider MD Dustin Mosqueda Other Provider Dr. Wilberto Glover Other Provider Maria Malik MD Primary Care Provider Maria Malik MD Unavailable Maria Malik MD Unavailable MARIA MALIK Referring Unavailable MARIA MALIK Primary Care Unavailable Dr. Lowell Malik Primary Care Provider Dr. Lowell Malik Referring Provider MD Dustin Mosqueda Attending Provider Dr. Canelo Garcia Attending Provider Alex HOLGUIN, Maria Morris Primary Care Provider MARIA MALIK Primary Care Unavailable MARIA MALIK Primary Care Unavailable Alex HOLGUIN, Maria Morris Unavailable Maria Malik MD Primary Care Provider Alex HOLGUIN, Dr. Etienne Primary Care Provider [phone] Dr. Nehemiah Puckett DO Emergency Provider Jeff HOLGUIN, Dr. Kim Admit Provider Jeff HOLGUIN, Dr. Kim Other Provider Surinder HOLGUIN, Zak Other Provider Unavailable Stanton HOLGUIN, Dr. Koehler Other Provider Lacy Barry MD Other Provider Unavailable Dr. Radha Samaniego DO Other Provider Gucci HOLGUIN, Dr. Arredondo Other Provider Bernardo HOLGUIN, Dr. Harvey Other Provider Darby HOLGUIN, Dr. Priest Other Provider Dr. Colt Stoddard MD Other Provider Harlan HOLGUIN, Dr. Whitehead Other Provider Ravinder HOLGUIN, Dr. Bradley Other Provider Adrienne Hirsch MD Other Provider Viviane HOLGUIN, Dr. Mckeon Other Provider Ronak HOLGUIN, Dr. Bingham Other Provider Raghu HOLGUIN, Dr. Carroll Other Provider Santiago HOLGUIN, Dr. Bianca Bronson Other Provider [phone] Agus HOLGUIN, Dr. Carolina Other Provider Maury HOLGUNI, Dr. Montiel Other Provider [phone] Hallie HOLGUIN, Dr. Tan Other Provider [phone] Ramez HOLGUIN, Dr. Cao Other Provider Unavailable Maury HOLGUIN, Taj Other Provider Unavailable Hemal SIMON, Dr. Esteban Attending Provider Radha HOLGUIN, Dr. Lemos Attending Provider Hemal SIMON, Dr. Esteban Other Provider Hemal SIMON, Dr. Esteban Referring Provider Alex HOLGUIN, Dr. Etienne Referring Provider [phone] Xavier GAINES-Anali Squires Attending Provider Dustin Mosqueda MD Attending Provider [phone] Radha Laird Attending Provider Perryman , Tony S Primary Care Provider Radha Laird Referring Provider Glenda HOLGUIN, Dr. Ladd Attending Provider Perryman DO, Tony S Primary Care Provider [phone] Maria Malik MD Primary Care Provider Maria Malik MD Unavailable Maria Malik MD Primary Care Provider [phone] MARIA MALIK Attending Unavailable MARIA MALIK Referring Unavailable MARIA MALIK Primary Care Unavailable MARIA MALIK Attending Unavailable MARIA MALIK Referring Unavailable MARIA MALIK Primary Care Unavailable MARIA MALIK Primary Care Unavaila ble MATILDE KURTZ Attending Unavailab NELLIE Weiner Attending Unavailabl e MARIA MALIK Primary Care Unavaila TAJ Hightower Referring Unavailable ROYALMANDILY S Primary Care Unavailable MOHAMMAD, YOUSEF Attending Unavailable SELF Referring Unavailable ROYAL TONY S Primary Care Unavailable NELLIE OWENS Referring UnavailMARIA Fonseca Primary Care Unavaila leo Radha, Canelo Attending Unavailable Radha, Canelo Referring Unavailable Malik, Lowell Primary Care Unavailable Radha, Canelo Referring Unavailable Radha, Sheridan [place] Attending Unavailable Malik, Lowell Primary Care Unavailable Malik, Lowell Primary Care Unavailable Ej Recio Attending Unavailable Tereletsky, Ej Referring Unavailable Malik, Lowell Primary Care Unavailable Salazar, Radha Referring Unavailable Salazar, Radha Attending Unavailable Malik, Lowell Primary Care Unavailable Judy Aguilar Admitting Unavailable Zak Cadena Consulting Unavailable jE Recio Attending Unavailable Adeli, Amir Consulting Unavailable Hinduja, Lacy Consulting Unavailable Aleksandr Samaniegoison Consulting Unavailable Maria Elena Duckworth Consulting Unavailable Wes Chang Consulting Unavailable Zayda Pastor Consulting Unavailable Colt Stoddard Consulting Unavailable Felecia Claros Consulting Unavailable Kirk Castellon Consulting Unavailable Adrienne Hirsch Consulting Unavailable Mike Pan Consulting Unavailable Otilia Simons Consulting Unavailable RidhaCarly Consulting Unavailable Zaghloveliah, Mhd Audie Consulting UnavailGe Scott Consulting Unavailable Dinesh Mendiola Consulting Unavailable Dominick Sterling Consulting Unavailable Kiley Myrick Consulting Unavailable Taj Mendiola Consulting Unavailable Judy Aguilar Consulting Unavailable Xavier GAINES, Anali Attending Unavailable Malik, Lowell Referring Unavailable Malik, Lowell Primary Care Unavailable Dustin Mosqueda Attending Unavailable Malik, Lowell Referring Unavailable Malik, Lowell Primary Care Unavailable Radha, Canelo Attending Unavailable Malik, Lowell Primary Care Unavailable Malik, Lowell Referring Unavailable Malik, Lowell Primary Care Unavailable Salazar, Radha Attending Unavailable Radha, Canelo Attending Unavailable Malik, Lowell Primary Care Unavailable Tereletsky, Ej Referring Unavailable Malik, Lowell Primary Care Unavailable Wilberto Doshi Attending Unavailable Salazar, Radha Referring Unavailable Malik, Lowell Primary Care Unavailable Judy Aguilar Attending Unavailable Judy Aguilar Admitting Unavailable jE Recio Attending Unavailable Zak Cadena Consulting Unavailable Adeli, Amir Consulting Unavailable Hinduja, Lacy Consulting Unavailable Aden, Radha Consulting Unavailable Zha, Maria Elena Consulting Unavailable Bernardo, Wes Consulting Unavailable DarbyZayda barksdale Consulting Unavailable Colt Stoddard Consulting Unavailable Felecia Claros Consulting Unavailable Kirk Castellon Consulting Unavailable Adrienne Hirsch Consulting Unavailable Mike Pan Consulting Unavailable Otilia Simons Consulting Unavailable Carly Krishnamurthy Consulting Unavailable Bianca Henderson Consulting UnavailGe Scott Consulting Unavailable Mendiola, Ramramiro Consulting Unavailable Hallie, Dominick Consulting Unavailable Ramez, Kiley Consulting Unavailable Hannaloc, Yousef Consulting Unavailable Judy Aguilar Consulting Unavailable Ej Recio Consulting Unavailable Lowell Malik Primary Care Unavailable Canelo Garcia Attending Unavailable Canelo Garcia Attending Unavailable Lowell Malik Referring Unavailable Lowell Malik Primary Care Unavailable Radha HOLGUIN, Dr. Lemos Referring Provider Allergies Allergy Classification Reported Allergen(s) Allergy Type Date of Onset Reaction(s) Facility Penicillins (antibiotic) (5 sources) Penicillins; Translations: [Penicillins] Drug Allergy 6 [facility] (20 sources) Penicillins; Translations: [Penicillins] Propensity to adverse reactions to drug 1 Other, Unknown, Other: See Comments [facility] Comment on above: REACTION AT AGE 10, P UT HIM OUT IS ALL HE REMEMBERS (3 sources) Penicillin Drug Allergy Unknown [facility] Medications Current Medications Medication Drug Class(es) Dates Sig (Normalized) Sig (Original) acetaminophen 500 mg oral capsule (9 sources) Start: 10-11-2022 take 1 capsule by mouth every six hours as needed for pain Acetaminophen 500 mg capsule Active 500 mg PO EVERY 6 HOURS as needed for Pain October 11, 2022 12:00am Start: 08-28-2022 take 1 tablet by shruthi th every four to six hours as needed Acetaminophen 500 MG Oral Tablet TAKE 1 TABLET EVERY 4 TO 6 HOURS NEEDED. Quantity: 0 Refills: 0 Ordered: 28-Aug-2022 DO Start : 28-Aug-2022 Active amLODIPine 10 mg oral tablet (20 sources) Dihydropyridine Calcium Channel Shantell Start: 12-04-2009 End: 12-23-2025 take 1 tablet by mouth once daily Amlodipine 10 mg tablet Active 10 mg PO DAILY July 04, 2021 1:00am Comment on above: Source=[place], Medication=amlodipine 10 mg tablet, OriginatingSource=[employer]., Duration=90, Date Last Modified/Filled=06-Jan-2021 atorvastatin 80 mg oral tablet (20 sources) HMG-CoA Reductase Inhibitor Start: 11-24-2024 take 1 tablet by mouth at bedtime Atorvastatin (Lipitor) 80 mg tablet Active 80 mg PO AT BEDTIME 30 November 24, 2024 12:00am Start: 07-22-2017 End: 12-23-2025 take 1 tablet by mouth once daily Atorvastatin 40 mg tablet Discontinued 40 mg PO DAILY July 04, 2021 1:00am November 24, 2024 10:14am Start: 04-23-2017 take 2 tablets by mo [facility] once daily atorvastatin (LIPITOR) 40 mg tablet Take 80 mg by mouth once daily. 5 04/23/2017 Active Comment on above: Source=[place], Medication=atorvastatin 40 mg tablet, OriginatingSource=[employer]., Duration=90, Date Last Modified/Filled=06-Jan-2021 azithromycin 250 mg oral tablet (3 sources) Macrolide Antimicrobial Start: 2024 take 1 tablet by mouth once daily azithromycin (ZITHROMAX) 250 mg tablet Take 1 tablet by mouth once daily. 12/18/2024 Active Start: 07-15-2023 End: 12-22-2023 azithromycin (Zithromax) 250 mg tablet Indications: Need for SBE (subacute bacterial endocarditis) prophylaxis 2 tablets 1 hour prior to dental procedure 2 tablet 07/15/2023 12/22/2023 Discontinued (Med List Cleanup) cholecalciferol 0.05 mg oral capsule (3 sources) Vitamin D Start: 10-11-2022 take 50 ug by mouth once daily Cholecalciferol (Vitamin D3) Active 50 MCG PO DAILY October 11, 2022 12:00am Start: 08-28-2022 take 1 capsule by mo uth once daily Vitamin D3 50 MCG (1999) Oral Capsule TAKE 1 CAPSULE Daily Quantity: 90 Refills: 3 Ordered: 28-Aug-2022 DO Start : 28-Aug-2022 Active docusate sodium 100 mg oral capsule (17 sources) Start: 07-22-2012 take 1 capsule by [facility] twice daily as needed for constipation Docusate Sodium 100 mg capsule Active 100 mg PO TWICE A DAY as needed for Constipation October 11, 2022 12:00am take 3 capsules by mouth twice d aily Colace 100 mg oral capsule ; 3 cap(s) orally 2 times a day Quantity: 0 Refills: 0 Ordered: 04-Jun-2021 Myla Polo Generic Substitution Allowed DULoxetine 30 mg delayed release oral capsule (20 sources) Serotonin and Norepinephrine Reuptake Inhibitor Start: 07-24-2020 End: 12-16-2025 take 1 capsule by mouth twice daily Duloxetine 30 mg capsule,delayed release(DR/EC) Active 30 mg PO TWICE A DAY July 04, 2021 1:00am DULoxetine (CYMB SEEMA) 60 mg capsule Take 60 mg by mouth. Active Comment on above: Source=[place], Medication=duloxetine 30 mg capsule,delayed release, OriginatingSource=[employer]., Duration=90, Date Last Modified/Filled=03-Feb-2021 fluticasone propionate 0.05 mg/actuat metered dose nasal spray (16 sources) Corticosteroid Start: 04-21-20 20 fluticasone propionate (FLONASE) 50 mcg/actuation nasal spray Instill into each nostril every night at bedtime . 0 04/21/2020 Active End: 09-25-2021 fluticasone propionate 50 mc g/actuation nasal spray,suspension ; 2 spray(s) in each nostril once a day, As Needed Quantity: 0 Refills: 0 Ordered: 20-Mar-2021 Myla Dias Generic Substitution Allowed Comments: Source=[place], Medication=fluticasone propionate 50 mcg/actuation nasal spray,suspension, OriginatingSource=[employer]., Duration=90, Date Last Modified/Filled=12-Dec-2020 Comment on above: Source=[employer], Medication=fluticasone propionate 50 mcg/actuation nasal spray,suspension, OriginatingSource=[employer]., Duration=90, Date Last Modified/Filled=12-Dec-2020 gabapentin 300 mg oral capsule (11 sources) Anti-epileptic Agent Start: 2023 End: 2024 take 1 capsule by mouth at bedtime Gabapentin 300 mg capsule Active 300 mg PO AT BEDTIME October 20, 2024 12:00am melatonin 5 mg oral tablet (13 sources) Start: 2022 take 3 tablets by mouth at bedtime as needed Melatonin 5 mg tablet Active 15 mg PO AT BEDTIME as needed for Insomnia October 11, 2022 12:00am Start: 08-28-2022 melatonin 5 mg tablet Melatonin 5 mg tablet Active 15 mg PO AT BEDTIME as needed for Insomnia October 11, 2022 12:00am 08/28/2022 Active memantine hydrochloride 10 mg oral tablet (17 sources) P-guwjlv-I-aspartate Receptor Antagonist Start: 03-21-2023 End: 06-21-2025 take 1 tablet by mouth twice daily Memantine 10 mg tablet Active 10 mg PO TWICE A DAY October 29, 2024 12:00am Start: 11-29-2022 End: 11-29-2023 take 1 tablet by mouth twice daily memantine (Namenda) 5 mg tablet 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 60 tablet 11 11/29/2022 03/21/2023 Discontinued (Reorder) metoprolol tartrate 25 mg oral tablet (20 sources) beta-Adrenergic Shantell Start: 07-31-2016 End: 12-23-2025 take 1 tablet by mouth twice daily Metoprolol Tartrate 25 mg tablet Active 25 mg PO TWICE A DAY July 04, 2021 1:00am Start: 12-04-2009 METOPROLOL TAR TRATE 25 MG TAB Take one(1) tablet daily. 0 12/04/2009 Active metoprolol tartr ate 25 mg tablet Quantity: 0 Refills: 0 Ordered: 20-Mar-2021 Myla Dias Status: Discontinued Generic Substitution Allowed Comments: Source=[place], Medication=metoprolol tartrate 25 mg tablet, OriginatingSource=[employer] Duration=90, Date Last Modified/Filled=06-Jan-2021 Comment on above: Source=[place], Medication=metoprolol tartrate 25 mg tablet, OriginatingSource=[employer]., Duration=90, Date Last Modified/Filled=06-Jan-2021 nystatin 100 unt/mg / triamcinolone acetonide 0.001 mg/mg topical ointment (5 sources) Polyene Antifungal, Corticosteroid Star t: 05-01 17 nystatin-triam cinolone (MYCOLOG) ointment Apply 1 application to affected area twice daily. 1 Tube 3 05/20/2017 Active omeprazole 40 mg delayed release oral capsule (20 sources) Proton Pump Inhibitor Star t: 06-0 01-16 End: 05-31 25 take 1 capsule by mouth once daily as needed for gastroesophageal reflux disease Omeprazole 40 mg capsule,delaye d release(DR/EC) Active 40 mg PO DAILY as needed for GERD October 11, 2022 12:00am UNABLE TO FIND (2 sources) UNABLE TO FIND Neuropathy away supp. BID . 0 Active UNABLE TO FIND N europathy away supp . 0 Active Completed/Discontinued Medications Medication Drug Class(es) Dates Sig (Normalized) Sig (Original) acetaminophen 325 mg / oxyCODONE hydrochloride 5 mg oral tablet (15 sources) Opioid Agonist Start: 03-18-2023 End: 04-29-2023 Oxycodone-Acetamino phen (Endocet) 5-325 mg tablet Discontinued 1 {tbl} PO Q4H as needed for pain 30 5 0 March 18, 2023 April 29, 2023 8:56am Closed fracture of left proximal humerus Start: 03-11-2023 End: 03-16-2023 Oxycodone-Acetaminophen (Per cocet) 5-325 mg tablet Discontinued 1 {tbl} PO Q4H as needed for pain 14 5 0 March 11, 2023 March 15, 2023 12:00am March 16, 2023 12:04am Closed fracture of left proximal humerus Start: 03-07-2023 End: 03-09-2023 take 1 tablet by mouth every six hours Percocet 5 mg-325 mg oral tablet ; 1 tab(s) orally every 6 hours Quantity: 12 Refills: 0 Ordered: 07-Mar-2023 Chi Ramey Start: 07-Mar-2023 End: 09-Mar-2023 Generic Substitution Allowed Comments: Caution federal law prohibits the transfer of this drug to any person other than the person for whom it was prescribed.May cause drowsiness. Alcohol may intensify this effect. Use care when operating dangerous machinery.This prescription cannot be refilled.This product contains acetaminophen. Do not use with any other product containing acetaminophen to prevent possible liver damage.Using more of this medication than prescribed may cause serious breathing problems. Start: 05-31-2021 oxyCODONE-Acet aminophen 5-325 MG Oral Tablet Quantity: 6 Refills: 0 Ordered: 31-May-2021 DO Start : 31-May-2021 Complete Start: 05-31-2021 End: 06-01-2021 take 1 tablet by mouth every four hours as needed oxycodone-acetaminophen 5 mg-325 mg oral tablet ; 1 tab(s) orally every 4 hours, As Needed for post-operative pain for 2 days. Quantity: 6 Refills: 0 Ordered: 31-May-2021 Kathy Duffy Start: 31-May-2021 End: 01-Jun-2021 Status: Discontinued Generic Substitution Allowed Comments: Caution federal law prohibits the transfer of this drug to any person other than the person for whom it was prescribed.May cause drowsiness. Alcohol may intensify this effect. Use care when operating dangerous machinery.This prescription cannot be refilled.This product contains acetaminophen. Do not use with any other product containing acetaminophen to prevent possible liver damage.Using more of this medication than prescribed may cause serious breathing problems. Comment on above: Caution federal law prohibits the transfer of this drug to any person other than the person for whom it was prescribed.May cause drowsiness. Alcohol may intensify this effect. Use care when operating dangerous machinery.This prescription cannot be refilled.This product contains acetaminophen. Do not use with any other product containing acetaminophen to prevent possible liver damage.Using more of this medication than prescribed may cause serious breathing problems. ascorbic acid 500 mg oral tablet (8 sources) Vitamin C Start: 2 End: 3 take 1 tablet by mouth once daily Ascorbic Acid (Vitamin C) (Vitamin C) 500 mg Tablet Discontinued 500 mg PO DAILY July 04, 2021 1:00am October 11, 2022 2:07pm aspirin 81 mg delayed release oral tablet (20 sources) Platelet Aggregation Inhibitor, Nonsteroidal Anti-inflammatory Drug Start: 3 End: 3 take 1 tablet by mouth at bedtime Aspirin 325 mg tablet,delayed release (DR/EC) Discontinued 325 mg PO AT BEDTIME October 11, 2022 12:00am March 14, 2023 2:44pm Start: 06-21-2020 End: 01-18-2025 Aspirin (Adult Low Dose Aspi rin) 81 mg tablet,delayed release (/EC) Discontinued 81 mg PO DAILY March 14, 2023 12:00am January 18, 2025 9:04am Start: 12-04-2009 End: 12-20-2025 take 1 tablet by mouth once daily Aspirin 325 mg Tablet Discontinued 325 mg PO DAILY July 04, 2021 1:00am July 11, 2021 10:07am End: 12-20-2024 aspirin 81 mg cap Take by [facility]. 12/20/2024 Discontinued (Course of therapy completed) ciprofloxacin 500 mg oral tablet (10 sources) Quinolone Antimicrobial Start: 07-11-2021 End: 10-11-2022 take 1 tablet by mouth twice daily Ciprofloxacin Hcl (Cipro) 500 mg tablet Discontinued 500 mg PO TWICE A DAY 10 0 July 11, 2021 1:00am October 11, 2022 2:06pm Start: 03-22-2021 End: 03-28-2021 take 1 tablet by mouth twice daily ciprofloxacin 500 mg oral tablet ; 1 tab(s) orally 2 times a day Quantity: 14 Refills: 0 Ordered: 22-Mar-2021 Ryan Renee Start: 22-Mar-2021 End: 28-Mar-2021 Status: Completed Generic Substitution Allowed Comments: Avoid prolonged or excessive exposure to direct and/or artificial sunlight while taking this medication.Check with your doctor before becoming .Do not take dairy products, antacids, or iron preparations within one hour of this medication.Finish all this medication unless otherwise directed by prescriber.Medication should be taken with plenty of water. Comment on above: Avoid prolonged or e xcessive exposure to direct and/or artificial sunlight while taking this medication.Check with your doctor before becoming .Do not take dairy products, antacids, or iron preparations within one hour of this medication.Finish all this medication unless otherwise directed by prescriber.Medication should be taken with plenty of water. clopidogrel 75 mg oral tablet (13 sources) [id number] Platelet Inhibitor Start : 10-21 End: 07-22 -2025 take 1 tablet by mouth once daily Clopidogrel (Plavix) 75 mg tablet Discontinued 75 mg PO DAILY 30 2 November 24, 2024 10:14am January 18, 2025 9:04am Started on 10/22/2024 donepezil hydrochloride 5 mg oral tablet (11 sources) Start : 08-28 End: 10-21 take 1 tablet by mouth at bedtime Donepezil 5 mg tablet Discontinued 5 mg PO AT BEDTIME October 11, 2022 12:00am October 21, 2024 2:59pm finasteride 5 mg oral tablet (20 sources) 5-alpha Reductase Inhibitor Start : 07-18 End: 09-25 take 1 tablet by mouth once daily Finasteride 5 mg tablet Discontinued 5 mg PO DAILY July 04, 2021 1:00am July 11, 2021 10:08am Comment on above: Source=[place], Medication=finasteride 5 mg tablet, OriginatingSource=[employer] Duration=90, Date Last Modified/Filled=06-Jan-2021 hydroCHLOROthiazide 25 mg / triamterene 37.5 mg oral capsule (16 sources) Potassium-sparing Diuretic, Thiazide Diuretic Start : 05-24 End: 09-25 take 1 capsule by mouth once daily as needed Triamterene-HCTZ 37.5-25 MG Oral Capsule TAKE 1 CAPSULE DAILY NEEDED. Quantity: 90 Refills: 3 Ordered: 21-Jun-2020 Maria Malik MD Start : 24-May-2020 Active triamterene 37.5 mg-hydrochlorothiazide 25 mg capsule Quantity: 0 Refills: 0 Ordered: 20-Mar-2021 Myla Dias Status: Discontinued Generic Substitution Allowed Comments: Source=[place], Medication=triamterene 37.5 mg-hydrochlorothiazide 25 mg capsule, OriginatingSource=[employer]., Duration=90, Date Last Modified/Filled=12-Dec-2020 Comment on above: Source=[place], Medication=triamterene 37.5 mg-hydrochlorothiazide 25 mg capsule, OriginatingSource=[employer]., Duration=90, Date Last Modified/Filled=12-Dec-2020 ipratropium bromide 0.021 mg/actuat metered dose nasal spray (12 sources) Anticholinergic Start: 10-12-19 End: 03-11-20 Ipratropium [place] 21 mcg (0.03 %) spray,non-aerosol Discontinued 2 NMA INTRANASAL THREE TIMES A DAY October 11, 2022 12:00am March 11, 2023 2:56pm administer into each nostril Start: 10-11-2022 End: 03-11-2023 take 1 spray(s) nasal route three times daily Ipratropium [place] Discontinued 2 SPRAY INTRANASAL THREE TIMES A DAY October 10, 2022 11:00pm March 11, 2023 1:56pm administer into each nostril Start: 02-26-2022 End: 03-21-2023 take 2 spray(s) nasal route three times daily ipratropium (Atrovent) 21 mcg (0.03 %) nasal spray Administer 2 sprays into each nostril 3 times a day. 0 02/26/2022 03/21/2023 Discontinued (Therapy completed) Start: 02-26-2022 take 2 spray(s) nasa l route three times daily Ipratropium [place] 0.03 % Nasal Solution USE 2 SPRAYS IN EACH NOSTRIL 3 TIMES DAILY. Quantity: 3 Refills: 3 Ordered: 26-Feb-2022 Maria Malik MD Start : 26-Feb-2022 Active loratadine 10 mg oral tablet (12 sources) Start: 04-21-2020 End: 09-25-2021 take 1 tablet by mouth once daily Loratadine 10 MG Oral Tablet TAKE 1 TABLET BY MOUTH EVERY DAY Quantity: 90 Refills: 3 Ordered: 24-May-2020 Maria Malik MD Start : 21-Apr-2020 Active losartan potassium 50 mg oral tablet (2 sources) Angiotensin 2 Receptor Shantell Start: 03-15-2019 take 1 tablet by mouth once daily Losartan Potassium 50 MG Oral Tablet Take 1 tablet daily Quantity: 90 Refills: 0 Start : 15-Mar-2019 Active Magnesium (9 sources) Start: 10-11-2022 End: 10-29-2024 take 1 tablet by mouth once daily Magnesium 200 mg tablet Discontinued 200 mg PO DAILY October 11, 2022 12:00am October 29, 2024 10:42am Start: 10-11-2022 Magnesium Acti ve 200 MG PO MOWEFR October 10th, 2023 11:00pm Start: 10-11-2022 Magnesium Acti ve 200 MG PO WEOctober 11, 2022 12:00am Start: 10-11-2022 take 200 mg by mouth once augustus y Magnesium Active 200 MG PO DAILY October 11, 2022 12:00am Start: 08-28-2022 take 1 tablet by shruthi th once daily Magnesium 200 MG Oral Tablet TAKE 1 TABLET DAILY DIRECTED. Quantity: 0 Refills: 0 Ordered: 28-Aug-2022 DO Start : 28-Aug-2022 Active metroNIDAZOLE 500 mg oral tablet (2 sources) Nitroimidazole Antimicrobial Start: 03-24-2021 End: 03-30-2021 take 1 tablet by mouth three times daily Flagyl 500 mg oral tablet ; 1 tab(s) orally 3 times a day Quantity: 21 Refills: 0 Ordered: 24-Mar-2021 Harris Ortiz Kaelyn Start: 24-Mar-2021 End: 30-Mar-2021 Status: Completed Generic Substitution Allowed Comments: Do not drink alcoholic beverages when taking this medication.Finish all this medication unless otherwise directed by prescriber.May discolor urine or feces. Comment on above: Do not drink alcohol ic beverages when taking this medication.Finish all this medication unless otherwise directed by prescriber.May discolor urine or feces. tamsulosin hydrochloride 0.4 mg oral capsule (20 sources) alpha-Adrenergic Shantell Start: 08-18-2013 End: 09-25-2021 take 1 capsule by mouth once daily Tamsulosin 0.4 mg capsule Discontinued 0.4 mg PO DAILY July 04, 2021 1:00am July 11, 2021 10:08am Comment on above: Source=[facility], Medication=tamsulosin 0.4 mg capsule, OriginatingSource=[employer]., Duration=90, Date Last Modified/Filled=06-Jan-2021 vitamin b12 5 mg sublingual tablet (17 sources) Vitamin B12 Start: 10-11-2022 End: 10-20-2024 take 1 tablet under the tongue once daily Cyanocobalamin (Vitamin B-12) 5,000 mcg tablet, sublingual Discontinued 5000 ug SL DAILY October 11, 2022 12:00am October 20, 2024 3:24pm Start: 08-28-2022 Vitamin B-12 5 000 MCG Sublingual Tablet Sub[address] 1 TABLET Quantity: 0 Refills: 0 Ordered: 28-Aug-2022 DO Start : 28-Aug-2022 Active Start: 07-04-2021 End: 10-11-2022 take 1 tablet by mouth once daily Cyanocobalamin (Vitamin B-12) (Vitamin B-12) 1,000 mcg Tablet Discontinued 1000 ug PO DAILY July 04, 2021 1:00am October 11, 2022 2:06pm Problems Active Problems Problem Classification Problem Date Documented Da te Episodic/Chronic Acute and unspecified renal failure (2 sources) Injury of kidney; Translations: [Acute kidney failure, unspecified] 06-04-2021 Episodic Acute cerebrovascular disease (20 sources) Cerebrovascular accident; Translations: [Cerebral infarction, unspecified] Onset: 5 10-29-2024 Chronic Biliary tract disease (4 sources) Acute cholecystitis; Translations: [Acute cholecystitis] 03-20-2021 Episodic Chronic obstructive pulmonary disease and bronchiectasis (2 sources) Mucopurulent chronic bronchitis; Translations: [Mucopurulent chronic bronchitis] Onset: 5 Chronic Complication of device; implant or graft (1 source) Significant coronary bypass graft disease; Translations: [Failed CABG (coronary artery bypass graft)] Chronic Coronary atherosclerosis and other heart disease (20 sources) Coronary arteriosclerosis in [place] artery; Translations: [Coronary arteriosclerosis] Onset: 6 08-14-2015 Chronic Coronary atherosclerosis and other heart disease (2 sources) History of coronary artery bypass grafting; Translations: [Presence of aortocoronary bypass graft] Onset: 5 Episodic Delirium, dementia, and amnestic and other cognitive disorders (14 sources) Vascular dementia ; Translations: [Mild vascular dementia without behavioral disturbance, psychotic disturbance, mood disturbance, or anxiety (CMS/HCC)] Onset: 3 11-29-2022 Chronic Diabetes mellitus without complication (3 sources) Hyperglycemia; Translations: [Hyperglycemia, unspecified] Onset: 4 12-22-2023 Episodic Disorders of lipid metabolism (20 sources) Mixed hyperlipidemia; Translations: [Hyperlipidemia] Onset: 0 09-27-2019 Chronic Esophageal disorders (20 sources) Gastroesophageal reflux disease; Translations: [Esophageal reflux] Onset: 3 11-29-2022 Chronic Essential hypertension (20 sources) Essential hypertension; Translations: [Hypertensive disorder] Onset: 6 08-14-2015 Chronic Comment on above: PER PT, CONTROLLED O N MEDS Fracture of upper limb (12 sources) Fracture of humerus ; Translations: [Closed fracture of unspecified part of humerus] 03-07-2023 Episodic Hyperplasia of prostate (20 sources) Benign prostatic hyperplasia; Translations: [Hypertrophy (benign) of prostate without urinary obstruction and other lower urinary tract symptom (LUTS)] Onset: 9 11-29-2022 Chronic Mood disorders (8 sources) Depressive disorder; Translations: [Depressive disorder, not elsewhere classified] Chronic Occlusion or stenosis of precerebral arteries (20 sources) Bilateral stenosis of carotid arteries; Translations: [Occlusion and stenosis of bilateral carotid arteries] Onset: 1 Chronic Occlusion or stenosis of precerebral arteries (3 sources) Bilateral carotid artery stenosis; Translations: [Bilateral carotid artery stenosis] Other aftercare (2 sources) Surgical follow-up; Translations: [Encounter for follow-up examination after completed treatment for conditions other than malignant neoplasm] Episodic Other aftercare (1 source) Long-term current use of aspirin; Translations: [ferry terminal agent (current) use of aspirin] 12-20-2024 Episodic Other aftercare (1 source) ferry terminal agent (current) use of aspirin; Translations: [ferry terminal agent (current) use of aspirin] Onset: 5 Episodic Other circulatory disease (20 sources) Disorder of carotid artery; Translations: [Disorder of arteries and arterioles, unspecified] Onset: 6 09-07-2018 Chronic Other circulatory disease (1 source) Carotid atherosclerosis; Translations: [Rupture of artery] 12-20-2024 Chronic Other circulatory disease (2 sources) Disorder of arteries and arterioles, unspecified; Translations: [Disorder of arteries and arterioles, unspecified] Onset: 3 Chronic Other circulatory disease (1 source) Rupture of artery; Translations: [Ulcerated atherosclerotic plaque of carotid artery] Onset: 5 Chronic Other circulatory disease (1 source) Carotid bruit; Translations: [Bilateral carotid bruits] Episodic Other connective tissue disease (8 sources) History of operative procedure on shoulder; Translations: [Presence of unspecified artificial shoulder joint] 11-02-2024 Chronic Other connective tissue disease (1 source) Presence of unspecified artificial shoulder joint; Translations: [Presence of unspecified artificial shoulder joint] Onset: 5 Chronic Other connective tissue disease (8 sources) Monoparesis - leg; Translations: [Other symptoms and signs involving the musculoskeletal system] 10-29-2024 Episodic Other connective tissue disease (2 sources) Other symptoms and signs involving the musculoskeletal system; Translations: [Other symptoms and signs involving the musculoskeletal system] Onset: 5 Episodic Other diseases of bladder and urethra (2 sources) Neurogenic bladder; Translations: [Neurogenic bladder NOS] 06-05-2021 Chronic Other diseases of bladder and urethra (11 sources) Bladder neck obstruction; Translations: [Bladder-neck obstruction] Onset: 9 11-28-2022 Chronic Other gastrointestinal disorders (16 sources) Chronic idiopathic constipation; Translations: [Constipation, unspecified] Onset: 3 11-28-2022 Chronic Other gastrointestinal disorders (4 sources) Constipation; Translations: [Constipation, unspecified] 06-04-2021 Episodic Comment on above: CONSTIPATION Other hereditary and degenerative nervous system conditions (2 sources) Impaired cognition; Translations: [Mild cognitive impairment, so stated] 12-04-2024 Chronic Other nervous system disorders (17 sources) Peripheral nerve disease ; Translations: [Unspecified hereditary and idiopathic peripheral neuropathy] Onset: 3 11-28-2022 Chronic Other nervous system disorders (1 source) Idiopathic progressive polyneuropathy; Translations: [Idiopathic progressive polyneuropathy] Chronic Other nervous system disorders (15 sources) Carpal tunnel syndrome of right wrist; Translations: [Carpal tunnel syndrome, right upper limb] Onset: 1 Chronic Other nervous system disorders (2 sources) Polyneuropathy, unspecified; Translations: [Polyneuropathy, unspecified] Onset: 2 Chronic Other nervous system disorders (8 sources) Polyneuropathy; Translations: [Other specified polyneuropathies] 11-29-2022 Chronic Other nervous system disorders (4 sources) Other specified polyneuropathies; Translations: [Other specified polyneuropathies] Onset: 3 Chronic Other non-traumatic joint disorders (1 source) Pain of right wrist; Translations: [Pain in right wrist] Episodic Other screening for suspected conditions (not mental disorders or infectious disease) (20 sources) Patient encounter status; Translations: [Screening for malignant neoplasms of prostate] Onset: 9 11-28-2022 Episodic Other upper respiratory disease (19 sources) Nasal congestion; Translations: [Other disease of nasal cavity and sinuses] Onset: 3 11-29-2022 Episodic Residual codes; unclassified (20 sources) Obstructive sleep apnea syndrome; Translations: [Obstructive sleep apnea (adult)(pediatric)] Onset: 3 11-29-2022 Chronic Residual codes; unclassified (6 sources) Hypersomnia; Translations: [Hypersomnia, unspecified] 06-20-2023 Chronic Residual codes; unclassified (4 sources) Obstructive sleep apnea (adult) (pediatric); Translations: [Obstructive sleep apnea (adult) (pediatric)] Onset: 3 Chronic Residual codes; unclassified (4 sources) Hypersomnia, unspecified; Translations: [Hypersomnia, unspecified] Onset: 4 Chronic Unclassified (6 sources) Patient encounter status; Translations: [Screening for prostate cancer] 06-21-2024 Unclassified (2 sources) ABD PAIN LOWER RIGHT SIDE 03-19-2021 Comment on above: ABD PAIN LOWER RIGHT SIDE Unclassified (2 sources) Primary hypertension 03-20-2021 Unclassified (1 source) 6 MO FU HTN LIPIDS REV [facility] 11-22-2020 Comment on above: 6 MO FU HTN LIPIDS R EV [facility] Unclassified (1 source) CHOLECYSTITIS REF [facility] 03-22-2021 Comment on above: CHOLECYSTITIS REF [facility] Unclassified (1 source) [facility] 03-22-2021 Comment on above: [facility] Unclassified (1 source) 3 MO FU REV [facility] 05-29-2021 Comment on above: 3 MO FU REV [facility] Unclassified (1 source) URINARY RETENTION,CONSTIPATION 06-05-2021 Comment on above: URINARY RETENTION,CO NSTIPATION Unclassified (1 source) POST OP #1 [facility] 04-10-2021 Comment on above: POST OP #1 [facility] Unclassified (2 sources) FELL OFF LADDER 03-07-2023 Comment on above: FELL OFF LADDER Unclassified (1 source) Humerus fracture 03-07-2023 Unclassified (2 sources) Vascular dementia, mild, without behavioral disturbance, psychotic disturbance, mood disturbance, and anxiety; Translations: [Vascular dementia, mild, without behavioral disturbance, psychotic disturbance, mood disturbance, and anxiety] Onset: 3 Unclassified (1 source) Vascular dementia, mild, without behavioral disturbance, psychotic disturbance, mood disturbance, and anxiety (Multi); Translations: [Vascular dementia, mild, without behavioral disturbance, psychotic disturbance, mood disturbance, and anxiety (Multi)] Onset: 3 Unclassified (4 sources) In 2 weeks, you will need referral to a neurologist for follow-up 30 days after your hospitalization Past or Other Problems Problem Classification Problem Date Documented Date Episodic/Chronic Complication of device; implant or graft (16 sources) Significant coronary bypass graft disease; Translations: [Mechanical complication due to coronary bypass graft] Onset: 11-28-2022 11-28-2022 Episodic Genitourinary symptoms and ill-defined conditions (20 sources) Acute retention of urine ; Translations: [Other specified retention of urine] Onset: 11-12-2012 Resolved: 11-29-2022 06-04-2021 Episodic Nutritional deficiencies (9 sources) Cobalamin deficiency; Translations: [Deficiency of other specified B group vitamins] Onset: 06-07-2024 12-22-2023 Episodic Other diseases of kidney and ureters (18 sources) Renal impairment; Translations: [Unspecified disorder of kidney and ureter] Onset: 11-28-2022 11-28-2022 Episodic Other male genital disorders (11 sources) Hemospermia; Translations: [Hematospermia] Resolved: 02-26-2022 Episodic Other nervous system disorders (11 sources) Carpal tunnel syndrome; Translations: [Carpal tunnel syndrome, unspecified upper limb] Resolved: 02-26-2022 Chronic Pneumonia (except that caused by tuberculosis or sexually transmitted disease) (6 sources) Right lower zone pneumonia; Translations: [Pneumonia, organism unspecified] Resolved: 02-26-2022 Episodic Residual codes; unclassified (18 sources) Insomnia; Translations: [Insomnia, unspecified] Onset: 11-28-2022 11-28-2022 Episodic Residual codes; unclassified (8 sources) H/O: major vascular surgery; Translations: [Other specified postprocedural states] Onset: 07-22-2012 11-29-2022 Episodic Screening and history of mental health and substance abuse codes (2 sources) H/O: depression; Translations: [Personal history of other mental disorders] Resolved: 02-26-2022 Episodic Unclassified (1 source) URINARY RETENTION CONSTIPATION 1 WK PO GALL BLADDER REMOVAL 06-04-2021 Comment on above: URINARY RETENTION CO NSTIPATION 1 WK PO GALL BLADDER REMOVAL Unclassified (4 sources) Onset: 06-20-2023 Resolved: 12-23-2024 06-20-2023 Unclassified (2 sources) Vascular dementia, mild, without behavioral disturbance, psychotic disturbance, mood disturbance, and anxiety; Translations: [Vascular dementia, mild, without behavioral disturbance, psychotic disturbance, mood disturbance, and anxiety] Onset: 06-07-2024 Unclassified (1 source) Vascular dementia, mild, without behavioral disturbance, psychotic disturbance, mood disturbance, and anxiety (Multi); Translations: [Vascular dementia, mild, without behavioral disturbance, psychotic disturbance, mood disturbance, and anxiety (Multi)] Onset: 12-16-2023 NEGATED: Highlighted row has not occurred!Residual codes; unclassified (2 sources) Disease Episodic Results Test Name Value Interpretation Reference Range Facility Anion gap in Serum or Plasma Ordered By: Canelo Garcia on 01-18-2025 Anion gap [Moles/Vol] 11 mmol/L - [facility] BUN/creatinine ratioOrdered By: Canelo Garcia on 01-18-2025 Urea nitrogen/Creatinine [Mass ratio] 25.6 mg/mg High [facility] Basic Metabolic Profile (BMP )on 01-18-2025 BUN/CRE 25.6 RATIO High [facility] Comment on above: Performed By: #### L 500.2500 ####[facility] [address] [place], [place], [id number] Calcium [Mass/Vol] 9.1 mg/dL Normal 7.6-11.0 [facility] Comment on above: Performed By: #### L 500.2500 ####[facility] [address] [place], [address] Chloride [Moles/Vol] 105 mmol/L Normal 98-108 [facility] Comment on above: Performed By: #### L 500.2500 ####[facility] [address] [place], [address] CO2 [Moles/Vol] 25.8 mmol/L Normal 21.0-32.0 [facility] Comment on above: Performed By: #### L 500.2500 ####[facility] [address] [place], [address] Creatinine [Mass/Vol] 1.17 mg/dL Normal 0.70-1.20 [facility] Comment on above: Performed By: #### L 500.2500 ####[facility] [address] [place], [address] GAP 11 Normal 5-15 [facility] Comment on above: Performed By: #### L 500.2500 ####[facility] [address] [place], [address] GFR/1.73 sq M.predicted among non-blacks MDRD (S/P/Bld) [Vol rate/Area] 64 mL/min/{1.73_m2} Normal >60 [facility] Comment on above: Result Comment: mL/m in/1.73m2 CKD-EPI Creatinine Equation (2020) Performed By: #### L 500.2500 ####[facility] [address] [place], [address] Glucose [Mass/Vol] 119 mg/dL High 70-99 [facility] Comment on above: Performed By: #### L 500.2500 ####[facility] [address] [place], [address] Potassium [Moles/Vol] 4.3 mmol/L Normal 3.3-5.1 [facility] Comment on above: Result Comment: Hemo lysis present, Results??could be affected. ?? Performed By: #### L 500.2500 ####[facility] [address] [place], [place], [address] Sodium [Moles/Vol] 141 mmol/L Normal 133-145 [facility] Comment on above: Performed By: #### L 500.2500 ####[facility] [address] [place], [place], [id number] Urea nitrogen [Mass/Vol] 30 mg/dL High 10-16 [facility] Comment on above: Performed By: #### L 500.2500 ####[facility] [address] [place], [place], [id number] Carbon dioxide, total [Moles /volume] in Central venous bloodOrdered By: Canelo Garcia on 01-18-2025 CO2 [Moles/Vol] 25.8 mmol/L 21.0-32.0 [facility] Cardiology Visit Reporton Cardiology Visit Report [facility] [address] [place], [place] [address] OFFICE VISIT Date of Service: 01/18/25 MR#: [id number] Acct: [id number] Name: ASHLEY WEINSTEIN Rep #: [id number] : 1945 Provider: Dr. Canelo Garcia MD Age/Sex: 79/M [place] [facility] Status: Signed HPI HPI History of Present Illness Details: Pleasant 79-year-old man who presents to the office today for cardiovascular hospital follow-up visit. He has a history of coronary artery disease status post coronary bypass graft surgery in 2009 with a DEGROOT to the LAD saphenous vein graft to diagonal branch and saphenous vein graft to the right coronary artery. He also has a history of hypertension, hyperlipidemia, mild renal insufficiency and a left carotid endarterectomy. He had a stress test in 2021 which demonstrated a previous inferior infarct and mild inferolateral and apical ischemia his ejection fraction was preserved medical therapy was recommended. Patient presented to the emergency room on 10/20/2024 with a stroke alert. He had presented with left leg weakness. His CTA of the head and neck showed no LVO/AVM/or aneurysm. There was 30% stenosis of the right carotid artery, 50% stenosis of the left carotid artery with probable tiny right carotid web with focal outpouching. He was admitted for further CVA workup. His brain MRI was consistent with acute to subacute infarcts. He was discharged home with a operations associate, which he brought in to have placed. It does not appear that the operations associate was conclusive and they tell me that he saw neurology and they are advocating an implantable loop recorder. He has been doing well otherwise. From a cardiac standpoint, the patient is doing well. He denies any palpitations, chest pain, pressure or heaviness. He denies SOB, Orthopnea, and PND. He does wear a CPAP nightly. He does not have bleeding issues; no blood in urine, stool, or nosebleeds. He denies myalgias, or claudication. He does not have edema, or sudden weight gain. He denies lightheadedness, dizziness, syncopal or near syncopal episodes, and headaches. He states that he does have blurred vision at times. Intake Vital Signs 11/20/23 08:32 10/29/24 10:38 01/18/25 09:01 Height 5 ft 6 in 5 ft 4 in 5 ft 4 in Weight: 205 lb BMI 35.2 BP 131/68 H Blood Pressure Location Lt brachial Position Sitting Respiration 16 Pulse 44 L Pulse Source Monitor Intake Visit Reasons: 1 Y FU Conductor Pullman Required: No Accompanied by: Significant Other Is patient in pain?: No Allergies Penicillins (PCN) Allergy (Verified 01/18/25 09:03) Other Medications ???Medication ???Instructions ???Recorded ???Confirmed ???Type amlodipine 10 mg tablet 10 mg PO DAILY 07/04/21 01/18/25 H istory duloxetine 30 mg capsule,delayed 30 mg PO BID 07/04/21 01/18/25 His tory release metoprolol tartrate 25 mg tablet 25 mg PO BID 07/04/21 01/18/25 His tory acetaminophen 500 mg capsule 500 mg PO Q6H PRN Pain 10/11/22 History docusate sodium 100 mg capsule 100 mg PO BID PRN Constipation 01/18/25 History melatonin 5 mg tablet 15 mg PO QHS PRN Insomnia 10/11/22 01/18/25 History omeprazole 40 mg capsule,delayed 40 mg PO DAILY PRN GERD 10/11/22 0 01/18/25 History release gabapentin 300 mg capsule 300 mg PO QHS 10/20/24 01/18/25 Hi story memantine 10 mg tablet 10 mg PO BID 10/29/24 01/18/25 His tory atorvastatin 80 mg tablet (Lipitor) 80 mg PO QHS #30 tabs 11/24/24 01/18/25 Rx aspirin 325 mg tablet 325 mg PO DAILY Reduce risk of 01/18/25 History stroke Have you fallen in the past year?: Yes PFSH Medical History CVA (cerebral vascular accident) Left leg weakness Postoperative urinary retention Wears glasses Dietary restriction Non-smoker History of edema History of echocardiogram Closed fracture of left proximal humerus Abnormal stress test Mild cognitive impairment Depression Renal insufficiency Peripheral neuropathy CATIE (obstructive sleep apnea) Insomnia Hyperlipidemia GERD (gastroesophageal reflux disease) Chronic idiopathic constipation Atherosclerosis of coronary artery of [place] heart without angina pectoris BPH (benign prostatic hyperplasia) CPAP (continuous positive airway pressure) dependence History of stress test Hypertension History of heart attack Cardiology follow-up encounter Surgical History S/p reverse total shoulder arthroplasty History of left shoulder replacement ( 03/11/23) History of transurethral resection of prostate History of colonoscopy History of coronary artery bypass graft x 3 ( 08/02/09) History of carpal tunnel surgery Failed CABG (coronary artery (more content not included)... Normal [facility] Chloride assayOrdered By: Aiden Garcia on 01-18-2025 Chloride [Moles/Vol] 105 mmol/L 98-108 [facility] Glomerular filtration rate ( GFR) estimation/1.73 sq m using serum, plasma, or whole bOrdered By: Canelo Garcia on 01-18-2025 GFR/1.73 sq M.predicted among non-blacks MDRD (S/P/Bld) [Vol rate/Area] 64 mL/min/{1.73_m2} >60 [facility] Comment on above: mL/min/1.73m2 CKD-EP I Creatinine Equation (2020) Potassium measurement (mass/ volume)Ordered By: Canelo Garcia on 01-18-2025 Potassium (Unsp spec) [Mass/Vol] 4.3 mmol/L 3.3-5.1 [facility] Comment on above: Hemolysis present, R esults could be affected. Serum creatinine measurement (mass/volume)Ordered By: Canelo Radha on 01-18-2025 Creatinine [Mass/Vol] 1.17 mg/dL 0.70-1.20 [facility] Serum glucose measurement (m ass/volume)Ordered By: [place] Radha on 01-18-2025 Glucose [Mass/Vol] 119 mg/dL High 70-99 [facility] Serum or plasma calcium broderick urement (mass/volume)Ordered By: Canelo Garcia on 01-18-2025 Calcium [Mass/Vol] 9.1 mg/dL 7.6-11.0 [facility] Serum or plasma urea nitroge n measurement (mass/volume)Ordered By: Canelo Garcia on 01-18-2025 Urea nitrogen [Mass/Vol] 30 mg/dL High 4-19 [facility] Sodium levelOrdered By: Padmini Garcia on 01-18-2025 Sodium [Moles/Vol] 141 mmol/L 133-145 [facility] ASP/CLOBI RESISTANCE INTERPo n 12-28-2024 Heparin Ab Platelet aggregation Ql (PPP) Reviewed by Stephie Coleman M.D., Ph.D [facility] Comment on above: Order Comment: Abrahan torres Type: BLOOD SPECIMEN Ordering Facility: [facility] Address: [address] [place] [address] Performed By: #### A SPCL, ASPCLP #### [facility] CLIA [id number] [address] [place] [address] [place] INTERPRETATION(ASPIRIN /CLOPIDOGREL RESISTANCE) Normal [facility] Comment on above: Order Comment: Abrahan torres Type: BLOOD SPECIMEN Ordering Facility: [facility] Address: [address] [place] [address] Result Comment: Abno rmal - see comment below. The aggregation results indicate a therapeutic response to aspirin. If the patient is on aspirin therapy, the degree of platelet inhibition indicates aspirin responsiveness because the arachidonic acid aggregation is <20 percent and the ADP aggregation is <70 percent. These parameters were developed at the [facility] utilizing the assay and reagents performed on this patient's platelets. Renée SHAH. Justice SHAH. Destin SHELTON. A prospective, blinded determination of the natural history of aspirin resistance among stable patients with cardiovascular disease. Journal of the [place] [employer]. 41(6):961-5, 2002. If the patient is on clopidogrel therapy, there is only mild reduction of ADP-induced platelet aggregation. Guidelines for optimal platelet inhibition during clopidogrel therapy have not been well-established. However, if the patient is currently receiving clopidogrel therapy, the results raise the suspicion of suboptimal clopidogrel response or clopidogrel resistance. Compared to prior results from 12/03/2024, the current aggregation pattern indicates an increased level of aspirin-induced platelet inhibition. The medication record indicates therapy with aspirin at 325 mg/day plus clopidogrel at 75 mg/day. Performed By: #### A SPCL, ASPCLP #### [facility] CLIA [id number] [address] [place] [address] [place] ASPIRIN/CLOPIDOGREL RESISTAN CEon 12-28-2024 Platelet aggregation ADP induced High dose (PRP) [Rel units/Vol] 57 % Max Low 65-93 [facility] Comment on above: Order Comment: Abrahan torres Type: BLOOD SPECIMEN Ordering Facility: [facility] Address: [address] [place] [address] Result Comment: See clinically significant comment below. For patients on clopidogrel, ADP aggregation >40% suggests clopidogrel resistance. Performed By: #### A SPCL, ASPCLP #### [facility] CLIA [id number] [address] [place] [address] [place] Platelet aggregation arachidonate induced 500 ug/mL (PRP) [Rel units/Vol] 12 % Max Low 75-100 [facility] Comment on above: Order Comment: Abrahan torres Type: BLOOD SPECIMEN Ordering Facility: [facility] Address: [address] [place] [address] Performed By: #### A SPCL, ASPCLP #### [facility] CLIA [id number] [address] [place] [address] [place] Apo B SerPl-mCncon Apolipoprotein B [Mass/Vol] 42 mg/dL Normal <90 [facility] Comment on above: Order Comment: Speci men Type: BLOOD SPECIMEN Ordering Facility: [facility] Address: [address] [place] [address] Result Comment: Mode rate Risk: 90-119 mg/dL High Risk: >119 mg/dL Performed By: #### 1 884-6, 70376-4 #### [facility] CLIA [id number] [address] [place] [address] [place] LPa SerPl-mCncon 12-28-2024 Lipoprotein a [Mass/Vol] 7 mg/dL Normal <30 [facility] Comment on above: Order Comment: Speci men Type: BLOOD SPECIMEN Ordering Facility: [facility] Address: [address] [place] [address] Performed By: #### 1 884-6, 72728-7 #### [facility] CLIA [id number] [address] [place] [address] OF [place] CNOVon 12-20-2024 CNOV Office Visit (NSEAP) -------- ASHLEY WEINSTEIN ([id number]) 1945 M Date Time Provider Department 12/20/24 8:40 AM NELLIE OWENS NSEBELIA During your visit today, we recorded the following information about you: Pulse Blood pressure Weight Height 46/minute 129/55 92.5 kg 1.676 m Nelile Owens MD 12/20/2024 9:40 AM Signed - Discontinue Plavix (clopidogrel) and stop the low-dose (81 mg) aspirin. - Start full-dose aspirin 325 mg once daily with food; prescription sent to [facility], [address] [place], [place] [id number]. - Continue atorvastatin 40 mg daily for cholesterol management. - Continue all blood pressure medications as prescribed to keep your blood pressure under control. - After 7 days on aspirin 325 mg, have blood drawn for an aspirin and Plavix resistance panel. Check with your local lab ([facility]) to see if they can run these tests; if not, go to [place] or [facility] lab. - At that same visit, order the two cholesterol marker tests discussed (no fasting needed). - Schedule insertion of an implantable operations associate (under-skin loop recorder) for long-term heart rhythm monitoring to detect any intermittent atrial fibrillation. - Continue using your sleep apnea therapy as prescribed. - Follow a healthy diet and engage in regular exercise to improve circulation and reduce stroke risk. - Arrange a carotid duplex ultrasound of both carotid arteries in 6 months to monitor plaque and artery narrowing. - Follow up with Dr. Mio Ma to review imaging and test results and adjust medications as needed. Nellie Owens MD 12/20/2024 11:37 AM Signed [facility]: Cerebrovascular Neurosurgery and Endovascular Surgical Neuroradiology New Visit Ashley Weinstein [facility]#: [id number] Date of Service: 12/20/2024 Primary Care Provider: Maria Malik MD The patient was referred by No ref. provider found for opinion regarding carotid artery web. I will provide a written report of my findings to the referring through letter, e-communication, or epic. Subjective Ashley Weinstein is a 79-year-old male with a history of hyperlipidemia, carotid artery disease, and neuropathy, presenting for follow-up after a recent stroke. He is accompanied by his daughter, who provides additional history. Ashley experienced a stroke in September while at home, presenting with left leg weakness. He was admitted to [facility] for 24 hours, where a brain MRI revealed multiple small strokes within the right ICA distribution. He did not experience any visual changes or arm weakness. Since discharge, he reports improvement in left leg weakness and does not fear falling. He does not endorse any new symptoms at home and feels back to his normal baseline. Ashley has a history of neuropathy in his feet for the past 2-3 years, characterized by burning and tingling sensations. He is not diabetic and does not endorse back pain. He reports a past neck injury from a fall off a ladder, which previously caused neck pain but has since resolved. He underwent open-heart surgery in 2010 and a carotid artery procedure in 2013 at [facility] in [place]. He has been on atorvastatin (Lipitor) 40 mg since 2016 and takes a baby aspirin daily, reduced from a full aspirin about a year ago by his stone cleaner, Dr. Garcia, at [facility]. He recently started Plavix but was advised to stop aspirin on January 19 and continue Plavix. Ashley wore a heart monitor for two weeks, but it only captured one week of data due to not carrying the accompanying phone. He is also on treatment for sleep apnea. He does not drink alcohol or smoke. He has a family history of diabetes in his mother. He has two daughters and lives in [place], [place]. Stroke Event Information Handedness: Smoking: No Illicit drug use: No Personal HX of HTN: Yes Personal HX of kidney disease: No Family History of SAH, aneurysms, stroke, vascular malformations, other neurological diseases? No REVIEW OF SYSYEMS 14-point systems were reviewed and found negative except to what mentioned in HPI. Nellie Owens MD ACTIVE PROBLEM LIST Enlarged Prostate With Lower Urinary Tract Symptoms (Luts) Bladder Neck Obstruction Elevated Prostate Specific Antigen (Psa) Nocturia Urinary Frequency PAST SURGICAL HISTORY Procedure Laterality Date PAST SURGICAL HISTORY OF 2009 CABG PAST SURGICAL HISTORY OF 2006 bilateral bunionectomies PAST SURGICAL HISTORY OF 2009 OPEN HEART SURGERY PROSTATE BIOPSY 10/2008 Allergies: Penicillins Medications: Current Outpatient Medications Medication Sig azithromycin (ZITHROMAX) 250 mg tablet Take 1 tablet by mouth once daily. clopidogrel (PLAVIX) 75 mg tablet Take 1 tablet by mouth once daily. DULoxetine (CYMBALTA) 60 mg capsule Take 60 mg by mouth. gabap (more content not included)... Normal [facility] ED Prov Noteon 12-18-2024 ED Prov Note ED PROVIDER NOTE [facility] EM[facility]ENCY [facility] NAME: Ashley Weinstein AGE: 79 y.o. : 1945 VISIT DATE: 12/18/2024 CSN: [id number] PCP: Maria Malik MD Chief Complaint Patient presents with Cough Chief complaint cough History of present illness 79-year-old male who is here with cough congestion mucopurulent sputum this been present for for 5 days. No chest pain or chest Past Medical History: Diagnosis Date BPH (benign prostatic hyperplasia) Carotid artery stenosis Coronary artery disease GERD (gastroesophageal reflux disease) Hypertension Insomnia Kidney stone Myocardial infarction (HCC) Past Surgical History: Procedure Laterality Date ANGIOGRAPHY PERIPHERAL 06/17/2012 RFA BUNIONECTOMY CARDIAC CATHETERIZATION 08/01/2009 EF 60% CARPAL TUNNEL RELEASE OPEN Right 02/27/2021 Procedure: RELEASE CARPAL TUNNEL - RIGHT; Surgeon: Ej Braden MD; Location: [facility] Main OR; Service: Orthopedic CHOLECYSTECTOMY CORONARY ARTERY BYPASS GRAFT 08/02/2009 x3 DEGROOT to LAD, SVG to LAD diagonal, SVG to posterior decending branch of RCA CYSTO LASER LITHOTRIPSY BLADDER STONE GALLBLADDER SURGERY PENIS SURGERY AZ TEAEC W/PATCH GRF CAROTID VERTB SUBCLAV NECK INC Left 07/21/2012 Family History Problem Relation Age of Onset Heart failure Mother Stroke Father Social History [1] Previous Medications Medication Sig amLODIPine (NORVASC) 10 MG tablet Take 10 mg by mouth daily. aspirin 325 MG EC tablet Take 325 mg by mouth daily. atorvastatin (LIPITOR) 40 MG tablet Take 40 mg by mouth daily . DULoxetine (CYMBALTA) 60 MG capsule Take 60 mg by mouth daily . fluticasone propionate (FLONASE) 50 mcg/actuation nasal spray Instill into each nostril every night at bedtime . metoprolol tartrate (LOPRESSOR) 25 MG tablet Take 25 mg by mouth 2 (two) times a day . UNABLE TO FIND Neuropathy away supp. BID . Allergies[2] Review of Systems All other systems reviewed and are negative. No data found. Physical Exam Vitals and nursing note reviewed. Exam conducted with a drop machine operator present. Constitutional: Appearance: Normal appearance. He is normal weight. HENT: Head: Normocephalic and atraumatic. Nose: Nose normal. Mouth/Throat: Pharynx: Posterior oropharyngeal erythema present. Eyes: Extraocular Movements: Extraocular movements intact. Cardiovascular: Rate and Rhythm: Regular rhythm. Tachycardia present. Pulmonary: Effort: Pulmonary effort is normal. Breath sounds: Normal breath sounds. Neurological: Mental Status: He is alert. Differential diagnosis bronchitis Laboratory & Radiographic Imaging (if done): No results found for this visit on 12/18/24. No orders to display Procedures Medical Decision Making Differential diagnosis bronchitis pneumonia . Clinical Impression: 1. Mucopurulent chronic bronchitis (HCC) ED Disposition ED Disposition Discharge Condition Stable Comment Ashley Weinstein discharged to home/self care in stable condition. Follow-up Information 1. Maria Malik MD. Specialty: Family Medicine [address] [place] [id number] Contact information for after-discharge care Follow-up information has not been specified. New Prescriptions azithromycin (ZITHROMAX) 250 MG tablet Take 1 (one) tablet (250 mg total) by mouth daily for 5 days . predniSONE (DELTASONE) 10 MG tablet Take 1 (one) tablet (10 mg total) by mouth 2 (two) times a day for 5 days . [1] Social History Socioeconomic History Marital status: Tobacco Use Smoking status: Never Smokeless tobacco: Never Vaping Use Vaping status: Never Used Substance and Sexual Activity Alcohol use: No Drug use: No [2] Allergies Allergen Reactions Penicillins Matilde Kurtz MD 12/20/24 0829 AUTHENTICATED BY MATILDE KURTZ, ON 12/20/2024 08:29:41 Normal [facility] COMPREHENSIVE METABOLIC PANE L W/ANION GAPon 12-15-2024 Albumin [Mass/Vol] 4.1 g/dL Normal 3.6-5.1 [facility] Comment on above: Performed By: #### 9 5404, 5195 #### [facility] [address] [employer] Network Planner: Polo Eisenberg MD ALP [Catalytic activity/Vol] 95 U/L Normal 35-144 [facility] Comment on above: Performed By: #### 9 3591, 4586 #### [facility] [address] [employer] Network Planner: Polo Eisenberg MD ALT [Catalytic activity/Vol] 22 U/L Normal 9-46 [facility] Comment on above: Performed By: #### 9 4766, 8293 #### [facility] of [place] [address] [employer] Network Planner: Polo Eisenberg MD AST [Catalytic activity/Vol] 18 U/L Normal 10-35 [facility] Comment on above: Performed By: #### 9 266, 8293 #### [facility] of [address], [address] [place] [address] Telecommunications Network Planner: Polo Eisenberg MD Bilirubin [Mass/Vol] 0.5 mg/dL Normal 0.2-1.2 [facility] Comment on above: Performed By: #### 9 2664, 8293 #### [facility] of [place] [address] [employer] Network Planner: Polo Eisenberg MD Calcium [Mass/Vol] 8.7 mg/dL Normal 8.6-10.3 [facility] Comment on above: Performed By: #### 9 266, 8293 #### [facility] of [place] [address] [employer] Network Planner: Polo Eisenberg MD Chloride [Moles/Vol] 103 mmol/L Normal 98-110 [facility] Comment on above: Performed By: #### 9 266, 8293 #### [facility] of [place] [address] [employer] Network Planner: Polo Eisenberg MD CO2 [Moles/Vol] 30 mmol/L Normal 20-32 [facility] Comment on above: Performed By: #### 9 266, 8293 #### [facility] of [place] [address] [employer] Network Planner: Polo Eisenberg MD Creatinine [Mass/Vol] 1.11 mg/dL Normal 0.70-1.[address] [facility] Comment on above: Performed By: #### 9 266, 8293 #### [facility] of [place] [address] [employer] Network Planner: Polo Eisenberg MD ELECTROLYTE BALANCE 7 mmol/L (calc) Normal 7-17 [facility] Comment on above: Performed By: #### 9 2664, 8293 #### [facility] [address], [address] [place] [address] Telecommunications Network Planner: Polo Eisenberg MD GFR/1.73 sq M.predicted among non-blacks MDRD (S/P/Bld) [Vol rate/Area] 68 mL/min/{1.73_m2} Normal > OR = 60 [facility] Comment on above: Performed By: #### 9 5, 8293 #### [facility] of [address], [address] [place] [address] [employer]communications Network Planner: Polo Eisenberg MD Glucose [Mass/Vol] 101 mg/dL High 65-99 [facility] Comment on above: Result Comment: Fasting reference interval For someone without known diabetes, a glucose value between 100 and 125 mg/dL is consistent with prediabetes and should be confirmed with a follow-up test. Performed By: #### 9 2664, 8293 #### [facility] [address], [address] [place] [address] Telecommunications Network Planner: Polo Eisenberg MD Potassium [Moles/Vol] 4.5 mmol/L Normal 3.5-5.[address] [facility] Comment on above: Performed By: #### 9 2664, 8293 #### [facility] [address], [address] [place] [address] Telecommunications Network Planner: Polo Eisenberg MD Protein [Mass/Vol] 6.6 g/dL Normal 6.1-8.1 [facility] Comment on above: Performed By: #### 9 266, 8293 #### [facility] of [address], [address] [place] [address] Telecommunications Network Planner: Polo Eisenberg MD Sodium [Moles/Vol] 140 mmol/L Normal 135-146 [facility] Comment on above: Performed By: #### 9 266, 8293 #### [facility] [address], [address] [place] [address] Telecommunications Network Planner: Polo Eisenberg MD Urea nitrogen [Mass/Vol] 21 mg/dL Normal 7-25 [facility] Comment on above: Performed By: #### 9 2665, 8293 #### [facility] [address], [address] [place] [phone] Telecommunications Network Planner: Polo Eisenberg MD DIRECT LDLon 12-15-2024 Cholesterol in LDL [Mass/Vol] 30 mg/dL Normal <100 [facility] Comment on above: Order Comment: DRAW FEE ON PZ [id number] FASTING:YES FASTING: YES Result Comment: Ren hayden elevated Triglycerides values (>1200 mg/dL) interfere with the dLDL assay. Desirable range <100 mg/dL for primary prevention; <70 mg/dL for patients with CHD or diabetic patients with > or = 2 CHD risk factors. Performed By: #### 9 2665, 8293 #### [facility] [address], [address] [place] [phone] Telecommunications Network Planner: Polo Eisenberg MD [facility] ASHLEY WEINSTEIN ([id number]) 1945 M Date Time Provider Department 12/07/24 TAJ BALLARD NECVS8 During your visit today, we recorded the following information about you: Shawn VitalyTony 12/07/2024 9:04 AM Signed Rec'd cardiac event monitor report from [employer] imported into [employer]. Allergies As of Date: 12/07/2024 Noted Allergy Reaction PENICILLINS 11/12/2010 14 - Other: See Comments Comments: Passed out Date Reviewed: 12/03/2024 Reviewed by: Margo Patel MA - Fully Assessed Reason for Visit: Received Outside Medical Records [2433] Cmt: Rec'd cardiac event monitor report from [employer] imported into [employer]. Prescriptions as of 12/07/2024 - aspirin 81 mg cap Take by mouth. - clopidogrel (PLAVIX) 75 mg tablet Take 1 tablet by mouth once daily. - DULoxetine (CYMBALTA) 60 mg capsule Take 60 mg by mouth. - gabapentin (NEURONTIN) 300 mg capsule 300 mg. - melatonin 5 mg tablet Melatonin 5 mg tablet Active 15 mg PO AT BEDTIME as needed for Insomnia October 11, 2022 12:00am - memantine (NAMENDA) 10 mg tablet 10 mg. - atorvastatin (LIPITOR) 40 mg tablet Take 80 mg by mouth once daily. - nystatin-triamcinolone (MYCOLOG) ointment Apply 1 application to affected area twice daily. - tamsulosin 0.4 mg cp24 Take 1 capsule by mouth once daily. - ASPIRIN 325 MG TAB Take one(1) tablet daily. - OMEPRAZOLE 40 MG CAP, DELAYED RELEASE as necessary - METOPROLOL TARTRATE 25 MG TAB Take one(1) tablet daily. - amlodipine besylate(NORVASC 10 MG TAB) Take one(1) tablet daily. Problem List As Of Date 12/07/2024 Noted Resolved Enlarged prostate with lower urinary tract symp*02/28/2009 Bladder Neck Obstruction [N32.0] 02/28/2009 Elevated Prostate Specific Antigen (PSA) [R97.2*06/05/2009 Nocturia [R35.1] 11/12/2012 Urinary frequency [R35.0] 11/12/2012 Encounter Status:Closed by TONY CORDOVA on 12/07/24 [facility] ASP/CLOBI RESISTANCE INTERPo n 12-03-2024 Heparin Ab Platelet aggregation Ql (PPP) Reviewed by Anali Lang DO, MPH [facility] Comment on above: Order Comment: Speci men Type: BLOOD SPECIMEN Ordering Facility: [facility] Address: [address] [place] [address] Performed By: #### A SPCISMAEL, ASPSADA #### [facility] CLIA [id number] [address] [place] [address] [place] INTERPRETATION(ASPIRIN /CLOPIDOGREL RESISTANCE) [facility] Comment on above: Order Comment: Speci men Type: BLOOD SPECIMEN Ordering Facility: [facility] Address: [address] [place] [address] Result Comment: Tatianna blanco - see comment below. The aggregation results indicate a subtherapeutic response to aspirin and clopidogrel. If the patient is on aspirin therapy the degree of platelet inhibition indicates incomplete response to aspirin. This is because either the arachidonic acid aggregation is > or = 20 percent or the ADP aggregation is > or = 70 percent. These parameters were developed at the [facility] utilizing the assay and reagents performed on this patient's platelets. Renée SHAH. Justice SHAH. Destin SHELTON. A prospective, blinded determination of the natural history of aspirin resistance among stable patients with cardiovascular disease. Journal of the [place] [employer]. 41(6):961-5, 2002. If the patient is on clopidogrel therapy, there is only mild reduction of ADP-induced platelet aggregation. Guidelines for optimal platelet inhibition during clopidogrel therapy have not been well-established. However, if the patient is currently receiving clopidogrel therapy, the results raise the suspicion of suboptimal clopidogrel response or clopidogrel resistance. No prior aspirin/clopidogrel results are available for comparison with the current study. The medication record indicates therapy with aspirin at 81 mg/day plus clopidogrel at 75 mg/day. Please correlate these laboratory results with clinical findings and medication history. Performed By: #### A SPCLP, ASPCL #### [facility] CLIA [id number] [address] [place] [address] [place] ASPIRIN/CLOPIDOGREL RESISTAN CEon 12-03-2024 Platelet aggregation ADP induced High dose (PRP) [Rel units/Vol] 55 % Max Low 65-93 [facility] Comment on above: Order Comment: Rei brian Type: BLOOD SPECIMEN Ordering Facility: [facility] Address: [address] [place] [address] Result Comment: See clinically significant comment below. For patients on clopidogrel, ADP aggregation >40% suggests clopidogrel resistance. Performed By: #### A SPCLP, ASPCL #### [facility] CLIA [id number] [address] [place] [address] [place] Platelet aggregation arachidonate induced 500 ug/mL (PRP) [Rel units/Vol] 65 % Max Low 75-100 [facility] Comment on above: Order Comment: Speci men Type: BLOOD SPECIMEN Ordering Facility: [facility] Address: [address] [place] [address] Performed By: #### A ANDERSON SHERIFF #### [facility] CLIA [id number] [address] [place] [address] [place] [address] [place] [facility] CNOVon 12-03-2024 CNOV Office Visit (CVAKPO ) -------- ASHLEY WEINSTEIN ([id number]) 1945 M Date Time Provider Department 12/03/24 9:00 AM TAJ BALLARD CVREMINGTON During your visit today, we recorded the following information about you: Pulse Blood pressure Weight Height 61/minute 139/51 92.5 kg 1.676 m Taj Ballard MD 01/18/2025 7:39 AM Addendum [facility] Initial Visit Consultation is requested by: SELF PCP: Tony Fernandez (Tavia) [address] [place] [address] CEREBROVASCULAR HISTORY 79 year old male with known medical history of HTN, HLD, CAD, status post CABG in 2009, status post left CEA for asymptomatic left ICA stenosis in 2013, CATIE on CPAP, neuropathy, and MCI, who, on 10/19/2024, developed acute left leg weakness and was admitted to [facility] where MRI brain showed acute 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 He had been maintained on Aspirin at the time of stroke and was switched to DAPT. His deficits have improved by at least 50%. No stroke recurrence. He was recently seen in the vascular surgery clinic who requested carotid doppler which done only yesterday and showed 50-69% stenosis in right ICA and < 50% stenosis in left ICA Review of system: Nonspecific recurrent right or left eye blurred vision lasting 4-5 minutes. This has been going on for 5-6 years and has been occurring once every 3 months. He has been following in the ophthalmology clinic Social history: Nonsomker. No history of ETOH or drug abuse. No history of head trauma or whiplash. He used to have neck manipulation in the chiropractic clinic and last time was 3-4 years ago. No history of DVT Stroke Event Information Do you have any planned upcoming surgeries or dental procedures? No RN completing documentation PAST MEDICAL HISTORY Diagnosis Date BPH with obstruction/lower urinary tract symptoms CAD (coronary artery disease) Elevated PSA Hypertension PAST SURGICAL HISTORY Procedure Laterality Date PAST SURGICAL HISTORY OF 2009 CABG PAST SURGICAL HISTORY OF 2006 bilateral bunionectomies PAST SURGICAL HISTORY OF 2009 OPEN HEART SURGERY PROSTATE BIOPSY 10/2008 FAMILY HISTORY Problem Relation Age of Onset other (black lung) Father Social History Tobacco Use Smoking status: Never Smokeless tobacco: Never Substance Use Topics Alcohol use: No Drug use: No MEDICATIONS Current Outpatient Medications Medication Sig aspirin 81 mg cap Take by mouth. clopidogrel (PLAVIX) 75 mg tablet Take 1 tablet by mouth once daily. DULoxetine (CYMBALTA) 60 mg capsule Take 60 mg by mouth. gabapentin (NEURONTIN) 300 mg capsule 300 mg. melatonin 5 mg tablet Melatonin 5 mg tablet Active 15 mg PO AT BEDTIME as needed for Insomnia October 11, 2022 12:00am memantine (NAMENDA) 10 mg tablet 10 mg. atorvastatin (LIPITOR) 40 mg tablet Take 80 mg by mouth once daily. METOPROLOL TARTRATE 25 MG TAB Take one(1) tablet daily. amlodipine besylate(NORVASC 10 MG TAB) Take one(1) tablet daily. nystatin-triamcinolone (MYCOLOG) ointment Apply 1 application to affected area twice daily. tamsulosin 0.4 mg cp24 Take 1 capsule by mouth once daily. ASPIRIN 325 MG TAB Take one(1) tablet daily. OMEPRAZOLE 40 MG CAP, DELAYED RELEASE as necessary No current facility-administered medications for this visit. ALLERGIES ALLERGIES Allergen Reactions Penicillins Other: See Comments Passed out PHYSICAL EXAMINATION BP 139/51 Pulse 61 Ht 167.6 cm (5' 6) Wt 92.5 kg (204 lb) BMI 32.93 kg/m? General: Well-developed, well-nourished, in no acute distress. HEENT: Normocephalic, atraumatic Extremities: No edema, cyanosis, or clubbing. No calf tenderness Skin: No rash or ecchymoses. Neurological: Awake, alert, oriented to person, place, and time. Speech fluent, no dysarthria. Naming, repetition, comprehension, intact. Good attention and insight into illness. Cranial Nerves: Extraocular movements intact without nystagmus. Visual uribe full. Facial sensation and movements normal and symmetric. Tongue midline. Trapezius strength 5/5 bilaterally. Motor: Normal bulk and tone. Strength 5/5 throughout. No pronator drift or tremor. Sensation: Intact light touch Coordination: Rapid alternating movements symmetric bilaterally. Gryzss-[id number], without dysmetria bilaterally. Gait is slow LABS Cholesterol: No results found for: CHOL No results found for: LDL No results found for: HDL No results found for: TG Diabetes: No results found for: HBA1C IMAGING MRI brain done on 10/20/2024: Several punctate foci of diffusion restrict (more content not included)... Normal [facility] Duplex ultrasound of carotid artery reportOrdered By: Wilberto Doshi on 12-02-2024 Study report [facility] Cardiovascular Services [address] [place] [address] Carotid Duplex Ultrasound 12/01/24 0839 MR#: [id number] Acct: [id number] Name: ASHLEY WEINSTEIN Rep #:[id number] : 1945 79 From: Wilberto Morris Attending Dr: ALYSSA Couch Stat us: REG CLI Ordering Dr: Radha Salazar Date: Location: [facility] Sex: M C Admitted: Reason For Study Reason For Study: Stenosis Rt. Velocities/BP Lt. Velocities/BP Prox CCA 62.6/6 cm/sec. Prox CCA 71/14.5 cm/sec. Mid CCA 60.7/12.6 cm/sec. Mid CCA 79.6/15.4 cm/sec. Dist CCA 70.2/14.5 cm/sec. Dist CCA 77.8/9.7 cm/sec. Prox ICA 165.3/22.6 cm/sec. Prox ICA 107.2/13.9 cm/sec. Mid ICA 134.6/16 cm/sec. Mid ICA 109.7/18.8 cm/sec. Dist ICA 104.7/17 cm/sec. Dist ICA 74/16.3 cm/sec. Rt. ICA/CCA = 2.72. Lt. ICA/CCA = 1.38. Prox ECA 104.7/5.3 cm/sec. Prox ECA 117/9 cm/sec. Rt. Vert. 48.5/8.8 cm/sec. Lt. Vert. 39.5/6.4 cm/sec. Right Extracranial There is intimal thickening but no significant atherosclerotic plaque noted in the right common carotid artery. There is heterogeneous, irregular atherosclerotic plaque noted in the right internal carotid artery. There is heterogeneous, irregular atherosclerotic plaque noted in the right external carotid artery. Antegrade flow is noted in the right vertebral artery. Left Extracranial There is homogeneous, smooth atherosclerotic plaque noted in the left common carotid artery. There is heterogeneous, irregular atherosclerotic plaque noted in the left internal carotid artery. There is heterogeneous, irregular atherosclerotic plaque noted in the left external carotid artery. Antegrade flowis noted in the left vertebral artery. Procedure Carotid Duplex 54892. This is a Carotid Duplex examination using B-mode, color flow and specral Doppler. Exam performed in department. VL/Carotid Duplex Ultrasound Interpretation Summary Moderate (50-69%) stenosis right extracranial internal carotid. Mild (<50%) stenosis left extracranial internal carotid. Patent and antegrade vertebrals bilaterally. Ordering Physician: Radha Salazar Referring Physician: Sacha Malik Performed By: Radha Molina RVT 12/02/24 1049 Date _ Wilberto Doshi MD CC: ALYSSA Couch; Dr. Lowell aMlik MD ~ Date Dictated: 12/01/24838 Date Transcribed: 12/02/241048 Filter Press Pumper: Signed [facility] Work Phone: Carotid Duplex Ultrasoundon 12-01-2024 Carotid Duplex Ultrasound [facility] Cardiovascular Services [address] [place] [address] Carotid Duplex Ultrasound 12/01/24838 MR#: [id number] Acct: [id number] Name: ASHLEY WEINSTEIN Rep #: [id number] : 1945 79 From: Wilberto Doshi MD Attending Dr: ALYSSA Couch Status: REG CLI Ordering Dr: Radha Salazar Date: 12/01/24 Location: [facility] Sex: M C Admitted: Reason For Study Reason For Study: Stenosis Rt. Velocities/BP Lt. Velocities/BP Prox CCA 62.6/6 cm/sec. Prox CCA 71/14.5 cm/sec. Mid CCA 60.7/12.6 cm/sec. Mid CCA 79.6/15.4 cm/sec. Dist CCA 70.2/14.5 cm/sec. Dist CCA 77.8/9.7 cm/sec. Prox ICA 165.3/22.6 cm/sec. Prox ICA 107.2/13.9 cm/sec. Mid ICA 134.6/16 cm/sec. Mid ICA 109.7/18.8 cm/sec. Dist ICA 104.7/17 cm/sec. Dist ICA 74/16.3 cm/sec. Rt. ICA/CCA = 2.72. Lt. ICA/CCA = 1.38. Prox ECA 104.7/5.3 cm/sec. Prox ECA 117/9 cm/sec. Rt. Vert. 48.5/8.8 cm/sec. Lt. Vert. 39.5/6.4 cm/sec. Right Extracranial There is intimal thickening but no significant atherosclerotic plaque noted in the right common carotid artery. There is heterogeneous, irregular atherosclerotic plaque noted in the right internal carotid artery. There is heterogeneous, irregular atherosclerotic plaque noted in the right external carotid artery. Antegrade flow is noted in the right vertebral artery. Left Extracranial There is homogeneous, smooth atherosclerotic plaque noted in the left common carotid artery. There is heterogeneous, irregular atherosclerotic plaque noted in the left internal carotid artery. There is heterogeneous, irregular atherosclerotic plaque noted in the left external carotid artery. Antegrade flow is noted in the left vertebral artery. Procedure Carotid Duplex 05283. This is a Carotid Duplex examination using B-mode, color flow and specral Doppler. Exam performed in department. VL/Carotid Duplex Ultrasound Interpretation Summary Moderate (50-69%) stenosis right extracranial internal carotid. Mild (<50%) stenosis left extracranial internal carotid. Patent and antegrade vertebrals bilaterally. Ordering Physician: Radha Salazar Referring Physician: Sacha Malik Performed By: Radha Molina RVT 12/02/24 1049 Date Wilberto Doshi MD CC: ALYSSA Couch; Dr. Lowell Malik MD Date Dictated: 12/01/24 0839 Date Transcribed: 12/02/24 104 Filter Press Pumper: Signed [facility] ASHLEY WEINSTEIN ([id number]) 1945 M Date Time Provider Department 11/29/24 TAJ BALLARD During your visit today, we recorded the following information about you: Mike Salguero 12/01/2024 3:04 PM Addendum OSH imaging/records received from [facility]: November 29, 2024 -2022 Records available in Care Everywhere -2022 Images Tony Cordova 12/02/2024 8:51 AM Signed Rec'd [address] [facility] imported into [employer]. Mike Salguero 12/02/2024 8:[address] [facility] Images Imported. Gustavo Chowdhury 12/20/2024 10:40 AM Signed Gave patent the [place] Carotid Bilateral AND Consult to Cardiology orders to schedule at their convenience dh Allergies As of Date: 11/29/2024 Noted Allergy Reaction PENICILLINS 11/12/2010 14 - Other: See Comments Comments: Passed out Date Reviewed: 06/10/2018 Reviewed by: Lyubov Charles (Jun) - Fully Assessed Reason for Visit: Imaging/Records [Other] Orders [681] Prescriptions as of 12/20/2024 - azithromycin (ZITHROMAX) 250 mg tablet Take 1 tablet by mouth once daily. - aspirin 325 mg tablet Take 1 tablet by mouth once daily. - clopidogrel (PLAVIX) 75 mg tablet Take 1 tablet by mouth once daily. - DULoxetine (CYMBALTA) 60 mg capsule Take 60 mg by mouth. - gabapentin (NEURONTIN) 300 mg capsule 300 mg. - melatonin 5 mg tablet Melatonin 5 mg tablet Active 15 mg PO AT BEDTIME as needed for Insomnia October 11, 2022 12:00am - memantine (NAMENDA) 10 mg tablet 10 mg. - atorvastatin (LIPITOR) 40 mg tablet Take 80 mg by mouth once daily. - nystatin-triamcinolone (MYCOLOG) ointment Apply 1 application to affected area twice daily. - tamsulosin 0.4 mg cp24 Take 1 capsule by mouth once daily. - OMEPRAZOLE 40 MG CAP, DELAYED RELEASE as necessary - METOPROLOL TARTRATE 25 MG TAB Take one(1) tablet daily. - amlodipine besylate(NORVASC 10 MG TAB) Take one(1) tablet daily. Problem List As Of Date 11/29/2024 Noted Resolved Enlarged prostate with lower urinary tract symp*02/28/2009 Bladder Neck Obstruction [N32.0] 02/28/2009 Elevated Prostate Specific Antigen (PSA) [R97.2*06/05/2009 Nocturia [R35.1] 11/12/2012 Urinary frequency [R35.0] 11/12/2012 Encounter Status:Closed by GUSTAVO CHOWDHURY on 12/20/24 Normal [facility] MR/BMS.BVSon 11-24-2024 MR/BMS.BVS [facility] Vascular Surgery [address] [place] [address] OFFICE VISIT Date of Service: 11/24/24 MR#: [id number] Acct: [id number] Name: ASHLEY WEINSTEIN Rep #: [id number] : 1945 Provider: ALYSSA Couch Age/Sex: 79/M [place] [facility] Status: Signed Intake Vital Signs 10/29/24 10:38 11/24/24 09:30 Height 5 ft 4 in Weight: 204 lb 208 lb BMI 35.0 BP 149/74 H 143/60 H Blood Pressure Location Lt brachial Rt radial Position Sitting Sitting Respiration 14 16 Pulse 61 60 Pulse Source Monitor Monitor Temp 98 F Temp Source Temporal Pulse Oximetry (%) 94 96 Oxygen Delivery Method room air room air Intake Visit Reasons: Carotids, post TIA Chief Complaint: establish care Is patient in pain?: No Allergies Penicillins (PCN) Allergy (Verified 11/24/24 09:31) Other Medications ???Medication ???Instructions ???Recorded ???Confirmed ???Type amlodipine 10 mg tablet 10 mg PO DAILY 07/04/21 11/24/24 H istory duloxetine 30 mg capsule,delayed 30 mg PO BID 07/04/21 11/24/24 His tory release metoprolol tartrate 25 mg tablet 25 mg PO BID 07/04/21 11/24/24 His tory acetaminophen 500 mg capsule 500 mg PO Q6H PRN Pain 10/11/22 History docusate sodium 100 mg capsule 100 mg PO BID PRN Constipation 11/24/24 History melatonin 5 mg tablet 15 mg PO QHS PRN Insomnia 10/11/22 11/24/24 History omeprazole 40 mg capsule,delayed 40 mg PO DAILY PRN GERD 10/11/22 0 11/24/24 History release aspirin 81 mg tablet,delayed 81 mg PO DAILY 03/14/23 11/24/24 H istory release (Adult Low Dose Aspirin) gabapentin 300 mg capsule 300 mg PO QHS 10/20/24 11/24/24 Hi story memantine 10 mg tablet 10 mg PO BID 10/29/24 11/24/24 His tory atorvastatin 80 mg tablet (Lipitor) 80 mg PO QHS #30 tabs 11/24/24 11/24/24 Rx clopidogrel 75 mg tablet (Plavix) 75 mg PO DAILY #30 tabs 11/24/24 11/24/24 Rx Have you fallen in the past year?: Yes PFSH Medical History CVA (cerebral vascular accident) Left leg weakness Postoperative urinary retention Wears glasses Dietary restriction Non-smoker History of edema History of echocardiogram Closed fracture of left proximal humerus Abnormal stress test Mild cognitive impairment Depression Renal insufficiency Peripheral neuropathy CATIE (obstructive sleep apnea) Insomnia Hyperlipidemia GERD (gastroesophageal reflux disease) Chronic idiopathic constipation Atherosclerosis of coronary artery of [place] heart without angina pectoris BPH (benign prostatic hyperplasia) CPAP (continuous positive airway pressure) dependence History of stress test Hypertension History of heart attack Cardiology follow-up encounter Surgical History S/p reverse total shoulder arthroplasty History of left shoulder replacement ( 03/11/23) History of transurethral resection of prostate History of colonoscopy History of coronary artery bypass graft x 3 ( 08/02/09) History of carpal tunnel surgery Failed CABG (coronary artery bypass graft) History of cardiac catheterization History of bunionectomy Hx laparoscopic cholecystectomy ( 05/30/21) History of carotid endarterectomy History of open heart surgery Family History Mother Diabetes Father Heart disease Social History Smoking Status: Never smoker alcohol intake: never substance use type: does not use HPI HPI HPI: ASHLEY WEINSTEIN, is a 79 M who presents to the office today for carotid artery stenosis and recent CVA. On 10/20/24 he woke up in the morning with LLE weakness and difficulty ambulating which led him to present to the ER as a stroke alert. He had negative Brain CT. Head/Neck CTA with radiology reporting 30% R ICA stenosis with probable tiny right carotid web with focal outpouching and 50% L ICA stenosis with surgical clips along the left common carotid artery, most compatible with prior endarterectomy. Brain MRI demonstrated multiple small foci of acute/subacute ischemia along the right periventricular white matter and subcortical right frontal lobe. Echo was unremarkable. He did not have a carotid duplex. He was admitted for observation and his LLE weakness resolved within 24 hours of admission. He was on ASA daily at home prior to admission. He was discharged on 21 days of DAPT with ASA and Plavix with recommendation to consider continuing pending our evaluation. He reports no prior history of CVA/TIA. He did have prior L CEA remotely, this was for asymptomatic L ICA stenosis. He has not had any prior R ICA interventions. Today, he reports he feels back t (more content not included)... Normal [facility] Orthopedic Visit Reporton Orthopedic Visit Report [facility] [address] [place] [address] OFFICE VISIT Date of Service: 11/02/24 MR#: [id number] Acct: [id number] Name: ASHLEY WEINSTEIN Rep #: [id number] : 1945 Provider: Dr. Dustin marroquin MD Age/Sex: 79/M [place] [facility] Status: Signed Intake Vital Signs 03/18/23 06:26 10/29/24 10:38 Height 5 ft 6 in 5 ft 4 in Intake Visit Reasons: LEFT SHOULDER Chief Complaint: left shoulder Is patient in pain?: No Allergies Penicillins (PCN) Allergy (Verified 11/02/24 08:16) Other Medications ???Medication ???Instructions ???Recorded ???Confirmed ???Type amlodipine 10 mg tablet 10 mg PO DAILY 07/04/21 11/02/24 H istory atorvastatin 40 mg tablet 40 mg PO DAILY 07/04/21 11/02/24 H istory duloxetine 30 mg capsule,delayed 30 mg PO BID 07/04/21 11/02/24 His tory release metoprolol tartrate 25 mg tablet 25 mg PO BID 07/04/21 11/02/24 His tory acetaminophen 500 mg capsule 500 mg PO Q6H PRN Pain 10/11/22 History docusate sodium 100 mg capsule 100 mg PO BID PRN Constipation 11/02/24 History melatonin 5 mg tablet 15 mg PO QHS PRN Insomnia 10/11/22 11/02/24 History omeprazole 40 mg capsule,delayed 40 mg PO DAILY PRN GERD 10/11/22 0 11/02/24 History release aspirin 81 mg tablet,delayed 81 mg PO DAILY 03/14/23 11/02/24 H istory release (Adult Low Dose Aspirin) gabapentin 300 mg capsule 300 mg PO QHS 10/20/24 11/02/24 Hi story clopidogrel 75 mg tablet (Plavix) 75 mg PO DAILY #21 tabs 10/21/24 11/02/24 Rx memantine 10 mg tablet 10 mg PO BID 10/29/24 11/02/24 His tory Have you fallen in the past year?: No PFSH Medical History CVA (cerebral vascular accident) Left leg weakness Postoperative urinary retention Wears glasses Dietary restriction Non-smoker History of edema History of echocardiogram Closed fracture of left proximal humerus Abnormal stress test Mild cognitive impairment Depression Renal insufficiency Peripheral neuropathy CATIE (obstructive sleep apnea) Insomnia Hyperlipidemia GERD (gastroesophageal reflux disease) Chronic idiopathic constipation Atherosclerosis of coronary artery of [place] without angina pectoris BPH (benign prostatic hyperplasia) CPAP (continuous positive airway pressure) dependence History of stress test Hypertension History of heart attack Cardiology follow-up encounter Surgical History S/p reverse total shoulder arthroplasty History of left shoulder replacement ( 03/11/23) History of transurethral resection of prostate History of colonoscopy History of coronary artery bypass graft x 3 ( 08/02/09) History of carpal tunnel surgery Failed CABG (coronary artery bypass graft) History of cardiac catheterization History of bunionectomy Hx laparoscopic cholecystectomy ( 05/30/21) History of carotid endarterectomy History of open heart surgery Family History Mother Diabetes Father Heart disease Social History Smoking Status: Never smoker alcohol intake: never substance use type: does not use HPI LEFT SHOULDER Details: This documentation accurately reflects the service provided and the decisions made by me, Dr. Dustin Mosqueda MD 11/02/24 0808. Part of today???s visit was documented by [ ], acting as scribe. ASHLEY WEINSTEIN is a 79 year old M here today for 1 yr 8 months follow-up left RTSA for proximal humerus fracture. Doing well overall is happy with the progress. Sometimes little bit of difficult y getting the hand to the back of the head to wash his hair. Otherwise no pain and good strength. Supplemental Info X-rays taken today of the left shoulder 4 views show the implant to be well-fixed well-positioned some slight heterotopic ossification at the medial proximal aspect of the humerus. The greater tuberosity fragment is healed. Coding Level of Care Code Off vis,est,level 3 Diagnoses S/p reverse total shoulder arthroplasty Z96.619 Assessment and Plan Assessment and Plan (1) S/p reverse total shoulder arthroplasty: Status: Acute Plan: ASHLEY WEINSTEIN is a 79 year old M here today for 1 yr 8 months follow-up left RTSA for proximal humerus fracture. Patient doing well recommend following up in 2 years for screening x-rays. Orders: Orders Shoulder min 2 Views Today Z96.619 - Presence of unspecified artificial shoulder joint Clinical Quality Measures Falls Risk Screening/Assistive Devices Have you fallen in the past year?: No Ortho Exam General General: Yes no acute distress Neurologic: Yes alert and Yes oriented x3 Psycholog (more content not included)... Normal [facility] Shoulder min 2 Viewson 11-02 Shoulder min 2 Views [facility] Imaging Services [address] [place] [address] Shoulder min 2 Views MR#: [id number] Acct: [id number] Name: ASHLEY WEINSTEIN Rep #: [id number] : 1945 M 79 From: Marlo Lomeli MD PCP: Dr. Loewll Malik MD Status: DEP AMB Study: Shoulder min 2 Views Date of Exam: 11/02/24 Exam# [id number] Ordering Dr: Dustin Mosqueda MD PROCEDURE: SHOULDER MIN 2 VIEWS 11/02/2024 REASON FOR EXAM: FOLLOW UP TECHNIQUE: Four views left shoulder COMPARISON: 11/04/2023 FINDINGS: A reverse shoulder arthroplasty again noted appears intact and anatomic without acute fracture or evidence of hardware failure or perihardware lucency. Old proximal left humerus fracture deformity again noted. Acromioclavicular joint not significantly changed in appearance. RAD/Shoulder min 2 Views IMPRESSION: A reverse shoulder arthroplasty again noted appears intact and anatomic without acute fracture or evidence of hardware failure or perihardware lucency. Reading Location: [id number] CC: Dr. Lowell Malik MD; Dr. Dustin Mosqueda MD Filter Press Pumper: Signed Normal [facility] Cardiology Visit Reporton Cardiology Visit Report [facility] Heart [address] [place] [address] OFFICE VISIT Date of Service: 10/29/24 MR#: [id number] Acct: [id number] Name: ASLHEY WEINSTEIN Rep #: [id number] : 1945 Provider: WILLIAM sood Age/Sex: 79/M Location: [facility] Status: Signed HPI HPI History of Present Illness Details: Pleasant 79-year-old man who presents to the office today for cardiovascular hospital follow-up visit. He has a history of coronary artery disease status post coronary bypass graft surgery in 2009 with a DEGROOT to the LAD saphenous vein graft to diagonal branch and saphenous vein graft to the right coronary artery. He also has a history of hypertension, hyperlipidemia, mild renal insufficiency and a left carotid endarterectomy. He had a stress test in 2021 which demonstrated a previous inferior infarct and mild inferolateral and apical ischemia his ejection fraction was preserved medical therapy was recommended. Patient presented to the emergency room on 10/20/2024 with a stroke alert. He had presented with left leg weakness. His CTA of the head and neck showed no LVO/AVM/or aneurysm. There was 30% stenosis of the right carotid artery, 50% stenosis of the left carotid artery with probable tiny right carotid web with focal outpouching. He was admitted for further CVA workup. His brain MRI was consistent with acute to subacute infarcts. He was discharged home with a operations associate, which he brought in to have placed. He was also discharged on Plavix, and aspirin. He was instructed to follow-up with cardiology and neurology. From a cardiac standpoint, the patient is doing well. He denies any palpitations, chest pain, pressure or heaviness. He denies SOB, Orthopnea, and PND. He does wear a CPAP nightly. He does not have bleeding issues; no blood in urine, stool, or nosebleeds. He does acknowledge a decrease in energy level-sleeps a lot. He denies myalgias, or claudication. He does not have edema, or sudden weight gain. He denies lightheadedness, dizziness, syncopal or near syncopal episodes, and headaches. He states that he does have blurred vision at times. Intake Vital Signs 10/21/24 12:53 10/29/24 10:38 Height 5 ft 4 in 5 ft 4 in Weight: 204 lb BMI 35.0 BP 149/74 H Blood Pressure Location Lt brachial Position Sitting Respiration 14 Pulse 61 Pulse Source Monitor Pulse Oximetry (%) 94 Oxygen Delivery Method room air Intake Visit Reasons: S/P [facility] 10/24 Conductor Pullman Required: No Accompanied by: , daughter Is patient in pain?: No Allergies Penicillins (PCN) Allergy (Verified 10/29/24 10:51) Other Medications ???Medication ???Instructions ???Recorded ???Confirmed ???Type amlodipine 10 mg tablet 10 mg PO DAILY 07/04/21 10/29/24 H istory atorvastatin 40 mg tablet 40 mg PO DAILY 07/04/21 10/29/24 H istory duloxetine 30 mg capsule,delayed 30 mg PO BID 07/04/21 10/29/24 His tory release metoprolol tartrate 25 mg tablet 25 mg PO BID 07/04/21 10/29/24 His tory acetaminophen 500 mg capsule 500 mg PO Q6H PRN Pain 10/11/22 History docusate sodium 100 mg capsule 100 mg PO BID PRN Constipation 10/29/24 History melatonin 5 mg tablet 15 mg PO QHS PRN Insomnia 10/11/22 10/29/24 History omeprazole 40 mg capsule,delayed 40 mg PO DAILY PRN GERD 10/11/22 0 10/29/24 History release aspirin 81 mg tablet,delayed 81 mg PO DAILY 03/14/23 10/29/24 H istory release (Adult Low Dose Aspirin) gabapentin 300 mg capsule 300 mg PO QHS 10/20/24 10/29/24 Hi story clopidogrel 75 mg tablet (Plavix) 75 mg PO DAILY #21 tabs 10/21/24 10/29/24 Rx memantine 10 mg tablet 10 mg PO BID 10/29/24 10/29/24 His tory Ejection fraction %: 55 Have you fallen in the past year?: No PFSH Medical History (Updated 10/29/24 @ 15:01 by Anali Park HOT BILLET SHEAR OPERATOR, HOT BILLET SHEAR OPERATOR-C) CVA (cerebral vascular accident) Left leg weakness Postoperative urinary retention Wears glasses Dietary restriction Non-smoker History of edema History of echocardiogram Closed fracture of left proximal humerus Abnormal stress test Mild cognitive impairment Depression Renal insufficiency Peripheral neuropathy CATIE (obstructive sleep apnea) Insomnia Hyperlipidemia GERD (gastroesophageal reflux disease) Chronic idiopathic constipation Atherosclerosis of coronary artery of [place] heart without angina pectoris BPH (benign prostatic hyperplasia) CPAP (continuous positive airway pressure) dependence History of stress test Hypertension History of heart attack Cardiology follow-up encounter Surgical History (Reviewed 10/29/24 @ 14:48 by Anali Park HOT BILLET SHEAR OPERATOR, HOT BILLET SHEAR OPERATOR-C) History of left shoulder replacement ( 03/11/23) History of transurethral resection of prostate History of colonoscopy History of coronary a (more content not included)... Normal [facility] Absolute lymphocyte countOrd ered By: Judy Aguilar on 10-21-2024 Lymphocytes Auto (Unsp spec) [#/Vol] 1.54 10*3/uL 0.83-4.51 [facility] Absolute neutrophil countOrd ered By: Judy Aguilar on 10-21-2024 Neutrophils (Bld) [#/Vol] 3.2 10*3/uL 2.0-7.7 [facility] Anion gap in Serum or Plasma Ordered By: Judy Aguilar on 10-21-2024 Anion gap [Moles/Vol] 9 mmol/L 5-15 [facility] Automated lymphocyte count a s percentage of total leukocytesOrdered By: Judy Aguilar on 10-21-2024 Lymphocytes/100 WBC Auto (Unsp spec) 27.9 % 19-41 [facility] BUN/creatinine ratioOrdered By: Judy Aguilar on 10-21-2024 Urea nitrogen/Creatinine [Mass ratio] 15.2 mg/mg 10- [facility] Basic Metabolic Profile (BMP )on 10-21-2024 BUN/CRE 15.2 RATIO Normal - [facility] Comment on above: Order Comment: Comme nts: NPO at [place] prior to lipid panel Performed By: #### L 500.2500, L501.9985, L500.4100, L501.9520, L100.0100 ####[facility] [address] [place], [address] Calcium [Mass/Vol] 8.8 mg/dL Normal 7.6-11.0 [facility] Comment on above: Order Comment: Comme nts: NPO at [place] prior to lipid panel Performed By: #### L 500.2500, L501.9985, L500.4100, L501.9520, L100.0100 ####[facility] [address] [place], [address] Chloride [Moles/Vol] 102 mmol/L Normal 98-108 [facility] Comment on above: Order Comment: Comme nts: NPO at [place] prior to lipid panel Performed By: #### L 500.2500, L501.9985, L500.4100, L501.9520, L100.0100 ####[facility] [address] [place], [address] CO2 [Moles/Vol] 27.9 mmol/L Normal 21.0-32.0 [facility] Comment on above: Order Comment: Comme nts: NPO at [place] prior to lipid panel Performed By: #### L 500.2500, L501.9985, L500.4100, L501.9520, L100.0100 ####[facility] [address] [place], [address] Creatinine [Mass/Vol] 1.19 mg/dL Normal 0.70-1.20 [facility] Comment on above: Order Comment: Comme nts: NPO at [place] prior to lipid panel Performed By: #### L 500.2500, L501.9985, L500.4100, L501.9520, L100.0100 ####[facility] [address] [place], [address] ECRCL 53.15 ml/min Normal 50-250 [facility] Comment on above: Order Comment: Comme nts: NPO at [place] prior to lipid panel Performed By: #### L 500.2500, L501.9985, L500.4100, L501.9520, L100.0100 ####[facility] [address] [place], [address] GAP 9 Normal 5-15 [facility] Comment on above: Order Comment: Comme nts: NPO at [place] prior to lipid panel Performed By: #### L 500.2500, L501.9985, L500.4100, L501.9520, L100.0100 ####[facility] [address] [place], [address] GFR/1.73 sq M.predicted among non-blacks MDRD (S/P/Bld) [Vol rate/Area] 63 mL/min/{1.73_m2} Normal >60 [facility] Comment on above: Order Comment: Comme nts: NPO at [place] prior to lipid panel Result Comment: mL/m in/1.73m2 CKD-EPI Creatinine Equation (2020) Performed By: #### L 500.2500, L501.9985, L500.4100, L501.9520, L100.0100 ####[facility] [address] [place], [address] Glucose [Mass/Vol] 103 mg/dL High 70-99 [facility] Comment on above: Order Comment: Comme nts: NPO at [place] prior to lipid panel Performed By: #### L 500.2500, L501.9985, L500.4100, L501.9520, L100.0100 ####[facility] [address] [place], [address] Potassium [Moles/Vol] 4.6 mmol/L Normal 3.3-5.1 [facility] Comment on above: Order Comment: Comme nts: NPO at [place] prior to lipid panel Performed By: #### L 500.2500, L501.9985, L500.4100, L501.9520, L100.0100 ####[facility] [address] [place], [address] Sodium [Moles/Vol] 139 mmol/L Normal 133-145 [facility] Comment on above: Order Comment: Comme nts: NPO at [place] prior to lipid panel Performed By: #### L 500.2500, L501.9985, L500.4100, L501.9520, L100.0100 ####[facility] [address] [place], [address] Urea nitrogen [Mass/Vol] 18 mg/dL Normal 4-19 [facility] Comment on above: Order Comment: Comme nts: NPO at [place] prior to lipid panel Performed By: #### L 500.2500, L501.9985, L500.4100, L501.9520, L100.0100 ####[facility] [address] [place], [address] Basophil percentageOrdered B y: Judy Aguilar on 10-21-2024 Basophils/100 WBC (Bld) 0.4 % 0-1 [facility] Bedside Glucoseon 10-21-2024 FINGERSTICK GLU 165 mg/dL High 74-106 [facility] Comment on above: Result Comment: NIRAV CORNEJO OF PATIENT CARE PER NURSING PROTOCOL Performed By: #### L 501.080 #### [facility] [address] [place], [address] FINGERSTICK GLU 98 mg/dL Normal 74-106 [facility] Comment on above: Result Comment: NIRAV CORNEJO OF PATIENT CARE PER NURSING PROTOCOL Performed By: #### L 501.080 ####[facility] [address] [place], [address] CBC W/Diff, Automatedon 09-29 Absolute Lymph 1.54 X10 3/uL Normal 0.83-4.51 [facility] Comment on above: Performed By: #### L 500.2500, L501.9985, L500.4100, L501.9520, L100.0100 ####[facility] [address] [place], [address] Absolute Neut 3.2 X10 3/uL Normal 2.0-7.7 [facility] Comment on above: Performed By: #### L 500.2500, L501.9985, L500.4100, L501.9520, L100.0100 ####[facility] [address] [place], [address] Basophils/100 WBC (Bld) 0.4 % Normal 0-1 [facility] Comment on above: Performed By: #### L 500.2500, L501.9985, L500.4100, L501.9520, L100.0100 ####[facility] [address] [place], [address] Eosinophils/100 WBC (Bld) 2.0 % Normal 0-5 [facility] Comment on above: Performed By: #### L 500.2500, L501.9985, L500.4100, L501.9520, L100.0100 ####[facility] [address] [place], [address] Erythrocyte distribution width (RBC) [Ratio] 12.6 % Normal 11.6-14.6 [facility] Comment on above: Performed By: #### L 500.2500, L501.9985, L500.4100, L501.9520, L100.0100 ####[facility] [address] [place], [address] Hematocrit (Bld) [Volume fraction] 43.3 % Normal 40-54 [facility] Comment on above: Performed By: #### L 500.2500, L501.9985, L500.4100, L501.9520, L100.0100 ####[facility] [address] [place], [address] Hemoglobin (Bld) [Mass/Vol] 14.3 g/dL Normal 13.0-16.5 [facility] Comment on above: Performed By: #### L 500.2500, L501.9985, L500.4100, L501.9520, L100.0100 ####[facility] [address] [place], [address] IG% 0.200 Normal 0.0-0.9 [facility] Comment on above: Result Comment: IG% - Immature Granulocytes (promyelocytes, myelocytes and metamyelocytes) > 1% indicates that a LEFT SHIFT is Present. Performed By: #### L 500.2500, L501.9985, L500.4100, L501.9520, L100.0100 ####[facility] [address] [place], [address] Lymphocytes/100 WBC (Bld) 27.9 % Normal 19-41 [facility] Comment on above: Performed By: #### L 500.2500, L501.9985, L500.4100, L501.9520, L100.0100 ####[facility] [address] [place], [address] MCH (RBC) [Entitic mass] 29.3 pg Normal 27.0-32.0 [facility] Comment on above: Performed By: #### L 500.2500, L501.9985, L500.4100, L501.9520, L100.0100 ####[facility] [address] [place], [address] MCHC (RBC) [Mass/Vol] 33.0 g/dL Normal 32-36 [facility] Comment on above: Performed By: #### L 500.2500, L501.9985, L500.4100, L501.9520, L100.0100 ####[facility] [address] [place], [address] MCV (RBC) [Entitic vol] 88.7 fL Normal 80-94 [facility] Comment on above: Performed By: #### L 500.2500, L501.9985, L500.4100, L501.9520, L100.0100 ####[facility] [address] [place], [address] Monocytes/100 WBC (Bld) 11.4 % High 0-10 [facility] Comment on above: Performed By: #### L 500.2500, L501.9985, L500.4100, L501.9520, L100.0100 ####[facility] [address] [place], [address] Neutrophils/100 WBC (Bld) 58.1 % Normal 47-70 [facility] Comment on above: Performed By: #### L 500.2500, L501.9985, L500.4100, L501.9520, L100.0100 ####[facility] [address] [place], [address] Nucleated RBC (Bld) [#/Vol] 0 10*3/uL Normal 0-5 [facility] Comment on above: Performed By: #### L 500.2500, L501.9985, L500.4100, L501.9520, L100.0100 ####[facility] [address] [place], [address] Platelet mean volume (Bld) [Entitic vol] 9.6 fL Normal 6.2-12.0 [facility] Comment on above: Performed By: #### L 500.2500, L501.9985, L500.4100, L501.9520, L100.0100 ####[facility] [address] [place], [address] Platelets (Bld) [#/Vol] 142 10*3/uL Low 150-450 [facility] Comment on above: Performed By: #### L 500.2500, L501.9985, L500.4100, L501.9520, L100.0100 ####[facility] [address] [place], [address] RBC (Bld) [#/Vol] 4.88 10*6/uL Normal 4.6-6.2 [facility] Comment on above: Performed By: #### L 500.2500, L501.9985, L500.4100, L501.9520, L100.0100 ####[facility] [address] [place], [address] RDW SD 41.3 fl Normal 35.1-43.9 [facility] Comment on above: Performed By: #### L 500.2500, L501.9985, L500.4100, L501.9520, L100.0100 ####[facility] [address] [place], [address] WBC (Bld) [#/Vol] 5.5 10*3/uL Normal 4.4-11.0 [facility] Comment on above: Performed By: #### L 500.2500, L501.9985, L500.4100, L501.9520, L100.0100 ####[facility] [address] [place], [address] Calculated very low density lipoprotein (VLDL) cholesterol measurementOrdered By: Judy Aguilar on 10-21-2024 Calculated very low density lipoprotein (VLDL) cholesterol measurement 55 mg/dL High 5-40 [facility] Carbon dioxide, total [Moles /volume] in Central venous bloodOrdered By: Judy Aguilar on 10-21-2024 CO2 [Moles/Vol] 27.9 mmol/L 21.0-32.0 [facility] Chloride assayOrdered By: Alyssa Aguilar on 10-21-2024 Chloride [Moles/Vol] 102 mmol/L 98-108 [facility] Discharge Instructionon 09-29 Discharge Instruction [facility] Medical Records Department [address] [place] [address] Instructions for Home/Discharge Instructions 10/21/24 1433 MR#: [id number] Acct: [id number] Name: ASHLEY WEINSTEIN Rep #: [id number] : 1945 79 From: Ej Recio DO PCP: Dr. Lowell Malik MD Status:ADM SHASHI Discharge Instructions Diet Discharge Diet: No restrictions DC O2, CPAP, BIPAP needs Home O2 Discharge instructions: No Dressing / Incision Discharge Activity: Return to Normal Activity Weight Bearing Status: Full weight bearing Follow Up Care Test Results: Test results from this visit will be discussed in further detail at your follow-up appointment, if applicable. Discharge Plan Admission Admit Date/Time: 10/20/24 15:52 Primary Reason for Your Visit: acute stroke Attending Provider: Ej Recio Primary Care Provider: Lowell Malik Consulting Providers: Zak Cadena; Rodo Eid; Lacy Barry; Radha Samaniego; Maria Elena Duckworth; Wes Chang; Zayda Pastor; Colt Stoddard; Felecia Claros; Kirk Castellon; Adrienne Hirsch; Mike Pan; Otilia Simons; Carly Krishnamurthy; Bianca Henderson; Ge Goldsmith; Dinesh Mendiola; Dominick Sterling; Kiley Myrick; Taj Mendiola; Judy Aguilar Instructions Additional Instructions / Restrictions: Remain on memantine 10 mg twice a day Discharge Orders/Prescriptions Prescriptions: New clopidogrel [Plavix] 75 mg tablet 75 mg PO DAILY Qty: 21 0RF Rx Instructions: Started on 10/22/2024 Continued acetaminophen 500 mg capsule 500 mg PO Q6H PRN (Reason: Pain) docusate sodium 100 mg capsule 100 mg PO BID PRN (Reason: Constipation) magnesium 200 mg tablet 200 mg PO DAILY melatonin 5 mg tablet 15 mg PO QHS PRN (Reason: Insomnia) omeprazole 40 mg capsule,delayed release(DR/EC) 40 mg PO DAILY PRN (Reason: GERD) atorvastatin 40 mg tablet 40 mg PO DAILY amlodipine 10 mg tablet 10 mg PO DAILY metoprolol tartrate 25 mg tablet 25 mg PO BID duloxetine 30 mg capsule,delayed release(DR/EC) 30 mg PO BID gabapentin 300 mg capsule 300 mg PO QHS aspirin [Adult Low Dose Aspirin] 81 mg tablet,delayed release (DR/EC) 81 mg PO DAILY Discontinued donepezil 5 mg tablet 5 mg PO QHS Other Ambulatory Orders: 30 Day Event Recorder Preventi (Urgent) Timeframe: 1 Day Facility: [facility] - Location: Cardiovascular Services Ordered By: Dr. Ej Recio Referrals / Follow Up: Lowell Malik MD [Primary Care Provider] - See Referral Note (In 2 weeks, you will need referral to a neurologist for follow-up 30 days after your hospitalization) Disposition Disposition (needs filled in before D/C Order can be placed): Home, Self Care 10/21/24 1503 Ej Recio DO CC: Radha Samaniego; Otliia Simons; Ge Goldsmith; Maria Elena Duckworth MD; Lacy Barry MD; Zak Cadena MD; Dr. Rodo Eid MD; Dr. Lowell Malik MD; Dr. Wes Chang MD; Dr. Zayda Pastor MD; Dr. Felecia Claros MD; Dr. Colt Stoddard MD; Dr. Kirk Castellon MD; Dr. Mike Pan DO; Dr. Bianca Henderson MD; Dr. Carly Krishnamurthy MD; Dr. Judy Aguilar MD; Dr. Dinesh Mendiola MD; Dr. Dominick Sterling MD; Dr. Kiley Myrick MD; Adrienne Hirsch DO; Taj Mendiola MD Signed Normal [facility] Eosinophil percentageOrdered By: Judy Aguilar on 10-21-2024 Eosinophils/100 WBC (Bld) 2.0 % 0-5 [facility] Erythrocyte distribution wid th ratioOrdered By: Judy Aguilar on 10-21-2024 Erythrocyte distribution width (RBC) [Ratio] 12.6 % 11.6-14.6 [facility] Erythrocyte distribution wid th standard deviationOrdered By: Judy Aguilar on 10-21-2024 Erythrocyte distribution width (RBC) [Ratio] 41.3 fl 35.1-43.9 [facility] Glomerular filtration rate ( GFR) estimation/1.73 sq m using serum, plasma, or whole bOrdered By: Judy Aguilar on 10-21-2024 GFR/1.73 sq M.predicted among non-blacks MDRD (S/P/Bld) [Vol rate/Area] 63 mL/min/{1.73_m2} >60 [facility] Comment on above: mL/min/1.73m2 CKD-EP I Creatinine Equation (2020) [facility] deOrdered By: Ej Recio on 10-21-2024 Glucose [Mass/Vol] 165 mg/dL High 74-106 [facility] Comment on above: MANAGEMENT OF PATIEN T CARE PER NURSING PROTOCOL Hematocrit Auto (Bld) [Volum e fraction]Ordered By: Judy Aguilar on 10-21-2024 Hematocrit (Bld) [Volume fraction] 43.3 % 40-54 [facility] Hemoglobin A1con 10-21-2024 HbA1c (Bld) [Mass fraction] 5.8 % High <=5.6 [facility] Comment on above: Result Comment: Norm al < 5.7 % Prediabetic 5.7 - 6.4 % Diabetic >or= 6.5 % Please note range changes. Performed By: #### L 500.2500, L501.9985, L500.4100, L501.9520, L100.0100 ####[facility] [address] [place], [place], [id number] Hemoglobin A1c percentageOrd ered By: Judy Aguilar on 10-21-2024 HbA1c (Bld) [Mass fraction] 5.8 % High <5.7 [facility] Comment on above: Normal < 5.7 % Predi abetic 5.7 - 6.4 % Diabetic >or= 6.5 % Please note range changes. Hemoglobin measurementOrdere d By: Judy Aguilar on 10-21-2024 Hemoglobin (Bld) [Mass/Vol] 14.3 g/dL 13.0-16.5 [facility] Immature granulocytes/100 WB C Auto (Bld)Ordered By: Judy Aguilar on 10-21-2024 Immature granulocytes/100 WBC (Bld) 0.200 % 0.0-0.9 [facility] Comment on above: IG% - Immature Granu locytes (promyelocytes, myelocytes and metamyelocytes) > 1% indicates that a LEFT SHIFT is Present. LDL calc ser/plasOrdered By: Judy Aguilar on 10-21-2024 Cholesterol in LDL [Mass/Vol] 32 mg/dL [facility] Comment on above: Xjlkrczqcc=307-023 m g/dL & Higher Ixcu=144 mg/dL or greater Lipid Profileon 10-21-2024 CHOL:HDL 3.[address] [facility] Comment on above: Order Comment: Comme nts: NPO at [place] prior to lipid panel Performed By: #### L 500.2500, L501.9985, L500.4100, L501.9520, L100.0100 ####[facility] [address] [place], [address] Cholesterol [Mass/Vol] 118 mg/dL Normal <=200 [facility] Comment on above: Order Comment: Comme nts: NPO at [place] prior to lipid panel Result Comment: Chol esterol level, Desirable <200 mg/dL Borderline high cholesterol 200-239 mg/dL High cholesterol >=240 mg/dL Recommendations of the NCEP Adult Treatment Panel for the following risk-cutoff thresholds for the [place] population. Performed By: #### L 500.2500, L501.9985, L500.4100, L501.9520, L100.0100 ####[facility] [address] [place], [address] Cholesterol in HDL [Mass/Vol] 31 mg/dL Low [facility] Comment on above: Order Comment: Comme nts: NPO at [place] prior to lipid panel Result Comment: Nikia onal Cholesterol Education Program (NCEP) guidelines: <40 mg/dL: Low HDL-cholesterol (major risk factor for CHD) >= 60 mg/dL: High HDL-cholesterol (negative risk factor for CHD) HDL-cholesterol is affected by a number of factors, e.g. smoking, exercise, hormones, sex and age. Performed By: #### L 500.2500, L501.9985, L500.4100, L501.9520, L100.0100 ####[facility] [address] [place], [address] Cholesterol in LDL [Mass/Vol] 32 mg/dL Normal [facility] Comment on above: Order Comment: Comme nts: NPO at [place] prior to lipid panel Result Comment: Bord uqccvj=942-721 mg/dL Higher Bmnb=965 mg/dL or greater Performed By: #### L 500.2500, L501.9985, L500.4100, L501.9520, L100.0100 ####[facility] [address] [place], [address] Cholesterol in VLDL [Mass/Vol] 55 mg/dL High 5-40 [facility] Comment on above: Order Comment: Comme nts: NPO at [place] prior to lipid panel Performed By: #### L 500.2500, L501.9985, L500.4100, L501.9520, L100.0100 ####[facility] [address] [place], [address] Triglyceride [Mass/Vol] 277 mg/dL High [facility] Comment on above: Order Comment: Comme nts: NPO at [place] prior to lipid panel Result Comment: The drugs N-Acetylcysteine and Metamizole may falsely depress this assay. Normal range: <150 mg/dL Borderline High: 150-199 mg/dL High: 200-499 mg/dL Very High: >500 mg/dL Performed By: #### L 500.2500, L501.9985, L500.4100, L501.9520, L100.0100 ####[facility] [address] [place], [address] MCV (mean corpuscular volume ) determinationOrdered By: Judy Agiular on 10-21-2024 MCV (RBC) [Entitic vol] 88.7 fL 80-94 [facility] MR/CON.PCM.NEon 10-21-2024 MR/CON.PCM.NE [facility] Medical Records Department [address] [place] [address] Consultation - Neurology 10/21/24 1530 MR#: [id number] Acct: [id number] Name: ASHLEY WEINSTEIN Rep #: [id number] : 1945 79 From: Zayda Pastor MD PCP: Dr. Lowell Malik MD Status:ADM SHASHI Location: [place] [address] Assessment and Plan: Stroke Assessment/Plan ASHLEY WEINSTEIN is a 79 M with a history of CAD s/p triple bypass on ASA, HTN, HLD, CATIE, GERD who presents for evaluation of LLE weakness, now improved, found to scattered small acute to subacute infarcts in the R frontal robe within the R MCA vascular territory. Neurological examination shows NIHSS 0. Symptoms have improved. Neuroimaging with MRI consistent with acute to subacute infarcts. CTA with bilateral ICAD without severe flow limiting critical stenosis in the R ICA. TTE pending. LDL and A1C are pending. Recommendations: ? Follow up TTE, LDL, A1c. flat sorter processor at discharge. ? Occupational/Physical therapy consult ? DVT prophylaxis with SCDs and heparin SQ. ? Permissive hypertension to goal SBP < 220 mm Hg x 24 hours complete, would recommend gradual normotension as of now. Would recommend blood pressure cuff at discharge and ensure he is closely following his BP daily. ? Anti-platelet medication: Continue home ASA 81mg daily. Load Plavix 300 mg now, followed by DAPT with ASA 81 mg + Plavix 75 mg daily x 21 days, followed by ASA monotherapy. Duration increase of DAPT will depend on vessel imaging at follow up, but for now would do 21 days. ? Stroke education ? Vascular risk factor modification: ? Hyperlipidemia:??? LDL Goal < 70 mg/dL, continue high intensity statin Recommend Neurology and Vascular Surgery follow up in 4-6 weeks after discharge with follow up carotid duplex at that time. Recommend PCP follow up within 1-2 weeks for vascular risk factor modification surveillance. HPI Consult Data Date of Consult: 10/21/24 HPI Narrative HPI Narrative: ASHLEY WEINSTEIN, is a 79 M who presents with an episode of Left lower extremity weakness. The patient reports that he went to bed at 7:30 pm on 10/19 in his normal state of health. He woke up on 10/20 and noted as he was getting up to go to the bathroom his left leg was dragging. He then presented for evaluation. Since then he has reported improvement in his weakness. He denies headache, vision changes, speech changes, numbness or any other focal areas of weakness. He denies history of stroke, but does state he has high blood pressure and at times it can be high. [facility] Medical History Postoperative urinary retention Wears glasses Dietary restriction Non-smoker History of edema History of echocardiogram Closed fracture of left proximal humerus Abnormal stress test Mild cognitive impairment Depression Renal insufficiency Peripheral neuropathy CATIE (obstructive sleep apnea) Insomnia Hyperlipidemia GERD (gastroesophageal reflux disease) Chronic idiopathic constipation Atherosclerosis of coronary artery of [place] heart without angina pectoris BPH (benign prostatic hyperplasia) CPAP (continuous positive airway pressure) dependence History of stress test Hypertension History of heart attack Cardiology follow-up encounter Home Medications ???Medication ???Instructions ???Recorded ???Last Taken ???Type amlodipine 10 mg tablet 10 mg PO DAILY 07/04/21 10/20/24 H istory atorvastatin 40 mg tablet 40 mg PO DAILY 07/04/21 10/20/24 H istory duloxetine 30 mg capsule,delayed 30 mg PO BID 07/04/21 10/20/24 His tory release metoprolol tartrate 25 mg tablet 25 mg PO BID 07/04/21 10/20/24 His tory acetaminophen 500 mg capsule 500 mg PO Q6H PRN Pain 10/11/22 History docusate sodium 100 mg capsule 100 mg PO BID PRN Constipation Unknown History magnesium 200 mg tablet 200 mg PO DAILY 10/11/22 10/20/24 History melatonin 5 mg tablet 15 mg PO QHS PRN Insomnia 10/11/22 10/19/24 History omeprazole 40 mg capsule,delayed 40 mg PO DAILY PRN GERD 10/11/22 U nknown History release aspirin 81 mg tablet,delayed 81 mg PO DAILY 03/14/23 10/20/24 H istory release (Adult Low Dose Aspirin) gabapentin 300 mg capsule 300 mg PO QHS 10/20/24 10/19/24 Hi story clopidogrel 75 mg tablet (Plavix) 75 mg PO DAILY #21 tabs 10/21/24 Unknown Rx Allergy/AdvReac Type Severity Reaction Status Date / Time Penicillins (PCN) Allergy Other Verified 11/20/23 09:00 Family History Mother Diabetes Father Heart disease Surgical History (Reviewed 0 (more content not included)... Normal [facility] Mean corpuscular hemoglobin (MCH) determinationOrdered By: Judy Aguilar on 10-21-2024 MCH (RBC) [Entitic mass] 29.3 pg 27.0-32.0 [facility] Mean corpuscular hemoglobin concentration (MCHC) determinationOrdered By: Judy Aguilar on 10-21-2024 MCHC (RBC) [Mass/Vol] 33.0 g/dL 32-36 [facility] Mean platelet volume determi nationOrdered By: Judy Aguilar on 10-21-2024 Platelet mean volume (Bld) [Entitic vol] 9.6 fL 6.2-12.0 [facility] Monocyte percentageOrdered B y: Judy Aguilar on 10-21-2024 Monocytes/100 WBC (Bld) 11.4 % High 0-10 [facility] Neutrophil percentageOrdered By: Judy Aguilar on 10-21-2024 Neutrophils/100 WBC (Bld) 58.1 % 47-70 [facility] Nucleated red blood cell per centageOrdered By: Judy Aguilar on 10-21-2024 Nucleated RBC/100 WBC (Bld) [Ratio] 0 % 0-5 [facility] Platelet countOrdered By: Alyssa Aguilar on 10-21-2024 Platelets (Bld) [#/Vol] 142 10*3/uL Low 150-450 [facility] Potassium measurement (mass/ volume)Ordered By: Judy Aguilar on 10-21-2024 Potassium (Unsp spec) [Mass/Vol] 4.6 mmol/L 3.3-5.1 [facility] RBC Auto (Bld) [#/Vol]Ordere d By: Judy Aguilar on 10-21-2024 RBC (Bld) [#/Vol] 4.88 10*6/uL 4.6-6.2 [facility] Screening total cholesterol/ high density lipoprotein (HDL) cholesterol ratioOrdered By: Judy Aguilar on 10-21-2024 Cholesterol.total/Chol esterol in HDL [Mass ratio] 3.83 {ratio} [facility] Serum creatinine measurement (mass/volume)Ordered By: Judy Aguilar on 10-21-2024 Creatinine [Mass/Vol] 1.19 mg/dL 0.70-1.20 [facility] Serum glucose measurement (m ass/volume)Ordered By: Judy Aguilar on 10-21-2024 Glucose [Mass/Vol] 103 mg/dL High 70-99 [facility] Serum or plasma calcium broderick urement (mass/volume)Ordered By: Judy Aguilar on 10-21-2024 Calcium [Mass/Vol] 8.8 mg/dL 7.6-11.0 [facility] Serum or plasma cholesterol in HDL measurement (mass/volume)Ordered By: Judy Aguilar on 10-21-2024 Cholesterol in HDL [Mass/Vol] 31 mg/dL Low >40 [facility] Comment on above: National Cholesterol Education Program (NCEP) guidelines:<40 mg/dL: Low HDL-cholesterol (major risk factor for CHD)>= 60 mg/dL: High HDL-cholesterol (negative risk factor for CHD)HDL-cholesterol is affected by a number of factors, e.g. smoking, exercise, hormones, sex and age. Serum or plasma cholesterol measurement (mass/volume)Ordered By: Judy Aguilar on 10-21-2024 Cholesterol [Mass/Vol] 118 mg/dL <201 [facility] Comment on above: Cholesterol level, D esirable <200 mg/dLBorderline high cholesterol 200-239 mg/dLHigh cholesterol >=240 mg/dLRecommendations of the NCEP Adult Treatment Panel for the following risk-cutoff thresholds for the [place] population. Serum or plasma urea nitroge n measurement (mass/volume)Ordered By: Judy Aguilar on 10-21-2024 Urea nitrogen [Mass/Vol] 18 mg/dL 4-19 [facility] Sodium levelOrdered By: Vik Aguilar on 10-21-2024 Sodium [Moles/Vol] 139 mmol/L 133-145 [facility] TSH DL <= 0.005 mIU/L QnOrde red By: Judy Aguilar on 10-21-2024 TSH Qn 2.740 uIU/mL 0.300-4.200 [facility] Thyroid Stim Hormone (TSH)on 10-21-2024 TSH 2.740 uIU/mL Normal 0.300-4.200 [facility] Comment on above: Order Comment: Comme nts: NPO at [place] prior to lipid panel Performed By: #### L 500.2500, L501.9985, L500.4100, L501.9520, L100.0100 ####[facility] [address] [place], [address] Triglycerides measurementOrd ered By: Judy Aguilar on 10-21-2024 Triglyceride [Mass/Vol] 277 mg/dL High <199 [facility] Comment on above: The drugs N-Acetylcy steine and Metamizole may falsely depress this assay. Normal range: <150 mg/dLBorderline High: 150-199 mg/dLHigh: 200-499 mg/dLVery High: >500 mg/dL Urinalysis, Completeon 10-21 BACTERIA 0 SEEN Normal None Seen [facility] Comment on above: Order Comment: ANTONIO CTOR TO SPECIFY Performed By: #### L 400.0001 ####[facility] [address] [place], [address] EPI,SQUAMOUS 0 SEEN Normal 0-5 [facility] Comment on above: Order Comment: ANTONIO CTOR TO SPECIFY Performed By: #### L 400.0001 ####[facility] [address] [place], [address] Mucus Ql (Urine sed) 0 SEEN Normal [facility] Comment on above: Order Comment: ANTONIO CTOR TO SPECIFY Performed By: #### L 400.0001 ####[facility] [address] [place], [address] RBC 0 SEEN Normal 0-5 [facility] Comment on above: Order Comment: ANTONIO CTOR TO SPECIFY Performed By: #### L 400.0001 ####[facility] [address] [place], [address] WBC 0 SEEN Normal 0-5 [facility] Comment on above: Order Comment: ANTONIO CTOR TO SPECIFY Performed By: #### L 400.0001 ####[facility] [address] [place], [address] White blood cell (WBC) count Ordered By: Judy Aguilar on 10-21-2024 WBC (Bld) [#/Vol] 5.5 10*3/uL 4.4-11.0 [facility] Activated partial thrombopla stin time (aPTT) in platelet poor plasma by coagulation aOrdered By: Nehemiah Puckett on 10-20-2024 aPTT Coag (PPP) [Time] 28.5 s 24.1-36.2 [facility] Basic Metabolic Profile (BMP )on 10-20-2024 BUN/CRE 18.1 RATIO Normal 10-20 [facility] Comment on above: Performed By: #### L 501.4021, L300.3900, L300.4310, L500.2500, L100.0100, L501.5200 #### [facility] [address] [place], [address] Calcium [Mass/Vol] 9.2 mg/dL Normal 7.6-11.0 [facility] Comment on above: Performed By: #### L 501.4021, L300.3900, L300.4310, L500.2500, L100.0100, L501.5200 #### [facility] [address] [place], [address] Chloride [Moles/Vol] 101 mmol/L Normal 98-108 [facility] Comment on above: Performed By: #### L 501.4021, L300.3900, L300.4310, L500.2500, L100.0100, L501.5200 #### [facility] [address] [place], [address] CO2 [Moles/Vol] 26.9 mmol/L Normal 21.0-32.0 [facility] Comment on above: Performed By: #### L 501.4021, L300.3900, L300.4310, L500.2500, L100.0100, L501.5200 #### [facility] [address] [place], [address] Creatinine [Mass/Vol] 1.26 mg/dL High 0.70-1.20 [facility] Comment on above: Performed By: #### L 501.4021, L300.3900, L300.4310, L500.2500, L100.0100, L501.5200 #### [facility] [address] [place], [address] ECRCL 52.97 ml/min Normal 50-250 [facility] Comment on above: Performed By: #### L 501.4021, L300.3900, L300.4310, L500.2500, L100.0100, L501.5200 #### [facility] [address] [place], [address] GAP 11 Normal 5-15 [facility] Comment on above: Performed By: #### L 501.4021, L300.3900, L300.4310, L500.2500, L100.0100, L501.5200 #### [facility] [address] [place], [address] GFR/1.73 sq M.predicted among non-blacks MDRD (S/P/Bld) [Vol rate/Area] 59 mL/min/{1.73_m2} Low >60 [facility] Comment on above: Result Comment: mL/m in/1.73m2 CKD-EPI Creatinine Equation (2020) Performed By: #### L 501.4021, L300.3900, L300.4310, L500.2500, L100.0100, L501.5200 #### [facility] [address] [place], [address] Glucose [Mass/Vol] 149 mg/dL High 70-99 [facility] Comment on above: Performed By: #### L 501.4021, L300.3900, L300.4310, L500.2500, L100.0100, L501.5200 #### [facility] [address] [place], [address] Potassium [Moles/Vol] 4.6 mmol/L Normal 3.3-5.1 [facility] Comment on above: Result Comment: Hemo lysis present, Results??could be affected. ?? Performed By: #### L 501.4021, L300.3900, L300.4310, L500.2500, L100.0100, L501.5200 #### [facility] [address] [place], [address] Sodium [Moles/Vol] 138 mmol/L Normal 133-145 [facility] Comment on above: Performed By: #### L 501.4021, L300.3900, L300.4310, L500.2500, L100.0100, L501.5200 #### [facility] [address] [place], [address] Urea nitrogen [Mass/Vol] 23 mg/dL High 10-16 [facility] Comment on above: Performed By: #### L 501.4021, L300.3900, L300.4310, L500.2500, L100.0100, L501.5200 #### [facility] [address], [address] Bedside Glucoseon 10-20-2024 FINGERSTICK GLU 122 mg/dL High 74-106 [facility] Comment on above: Result Comment: NIRAV GEMENT OF PATIENT CARE PER NURSING PROTOCOL Performed By: #### L 501.080 ####[facility] [address], [address] FINGERSTICK GLU 149 mg/dL High 74-106 [facility] Comment on above: Result Comment: NIRAV GEMENT OF PATIENT CARE PER NURSING PROTOCOL Performed By: #### L 501.080 #### [facility] [address] [place], [address] Bilirubin Test strip Ql (U)O rdered By: Nehemiah Puckett on 10-20-2024 Bilirubin Ql (U) Negative Negative [facility] Brain without Contraston Brain without Contrast [facility] Imaging Services [address] [place] [address] Brain without Contrast MR#: [id number] Acct: [id number] Name: ASHLEY WEINSTEIN Rep #: [id number] : 1945 M 79 From: Marlo Montoya PCP: Dr. Lowell Malik MD Status: ADM SHASHI Study: Brain without Contrast Date of Exam: 10/20/24 Exam# [id number] Ordering Dr: Judy Aguilar MD PROCEDURE: BRAIN WITHOUT CONTRAST 10/20/2024 REASON FOR EXAM: CONCERN FOR CVA, LEFT LOWER EXTREMITY WEAKNESS TECHNIQUE: Noncontrast brain MRI. Multiplanar and multisequence images were obtained. COMPARISON: None FINDINGS: Several punctate foci of diffusion restriction along the right periventricular white matter as well as a diffusion restricting focus in the right frontal lobe subcortical white matter measuring 7 mm consistent with acute/subacute ischemia. Corresponding hyperintense FLAIR signal foci at these locations. No other diffusion restriction. No evidence of acute intracranial hemorrhage, midline shift or mass effect. No chronic microhemorrhage. Minimal scattered periventricular, subcortical and deep white matter hyperintense FLAIR signal foci consistent with chronic small-vessel ischemic changes. No hydrocephalus. Cerebral volume is age-appropriate. Paranasal sinuses and mastoid air cells are clear. Globes are intact. MRI/Brain without Contrast IMPRESSION: 1. Multiple small foci of acute/subacute ischemia along the right periventricular white matter and subcortical right frontal lobe. 2. Mild chronic small-vessel ischemic disease. Reading Location: [facility] CC: Dr. Lowell Malik MD; Dr. Judy Aguilar MD Filter Press Pumper: Signed Normal [facility] CBC W/Diff, Automatedon 04-2 Absolute Lymph 1.57 X10 3/uL Normal 0.83-4.51 [facility] Comment on above: Performed By: #### L 501.4021, L300.3900, L300.4310, L500.2500, L100.0100, L501.5200 #### [facility] [address] [place], [address] Absolute Neut 4.0 X10 3/uL Normal 2.0-7.7 [facility] Comment on above: Performed By: #### L 501.4021, L300.3900, L300.4310, L500.2500, L100.0100, L501.5200 #### [facility] [address] [place], [address] Basophils/100 WBC (Bld) 0.5 % Normal 0-1 [facility] Comment on above: Performed By: #### L 501.4021, L300.3900, L300.4310, L500.2500, L100.0100, L501.5200 #### [facility] [address] [place], [address] Eosinophils/100 WBC (Bld) 1.7 % Normal 0-5 [facility] Comment on above: Performed By: #### L 501.4021, L300.3900, L300.4310, L500.2500, L100.0100, L501.5200 #### [facility] [address] [place], [address] Erythrocyte distribution width (RBC) [Ratio] 12.5 % Normal 11.6-14.6 [facility] Comment on above: Performed By: #### L 501.4021, L300.3900, L300.4310, L500.2500, L100.0100, L501.5200 #### [facility] [address] [place], [address] Hematocrit (Bld) [Volume fraction] 43.7 % Normal 40-54 [facility] Comment on above: Performed By: #### L 501.4021, L300.3900, L300.4310, L500.2500, L100.0100, L501.5200 #### [facility] [address] [place], [address] Hemoglobin (Bld) [Mass/Vol] 14.8 g/dL Normal 13.0-16.5 [facility] Comment on above: Performed By: #### L 501.4021, L300.3900, L300.4310, L500.2500, L100.0100, L501.5200 #### [facility] [address] [place], [address] IG% 0.500 Normal 0.0-0.9 [facility] Comment on above: Result Comment: IG% - Immature Granulocytes (promyelocytes, myelocytes and metamyelocytes) > 1% indicates that a LEFT SHIFT is Present. Performed By: #### L 501.4021, L300.3900, L300.4310, L500.2500, L100.0100, L501.5200 #### [facility] [address] [place], [address] Lymphocytes/100 WBC (Bld) 24.3 % Normal 19-41 [facility] Comment on above: Performed By: #### L 501.4021, L300.3900, L300.4310, L500.2500, L100.0100, L501.5200 #### [facility] [address] [place], [address] MCH (RBC) [Entitic mass] 29.8 pg Normal 27.0-32.0 [facility] Comment on above: Performed By: #### L 501.4021, L300.3900, L300.4310, L500.2500, L100.0100, L501.5200 #### [facility] [address] [place], [address] MCHC (RBC) [Mass/Vol] 33.9 g/dL Normal 32-36 [facility] Comment on above: Performed By: #### L 501.4021, L300.3900, L300.4310, L500.2500, L100.0100, L501.5200 #### [facility] [address] [place], [address] MCV (RBC) [Entitic vol] 88.1 fL Normal 80-94 [facility] Comment on above: Performed By: #### L 501.4021, L300.3900, L300.4310, L500.2500, L100.0100, L501.5200 #### [facility] [address] [place], [address] Monocytes/100 WBC (Bld) 11.5 % High 0-10 [facility] Comment on above: Performed By: #### L 501.4021, L300.3900, L300.4310, L500.2500, L100.0100, L501.5200 #### [facility] [address] [place], [address] Neutrophils/100 WBC (Bld) 61.5 % Normal 47-70 [facility] Comment on above: Performed By: #### L 501.4021, L300.3900, L300.4310, L500.2500, L100.0100, L501.5200 #### [facility] [address] [place], [address] Nucleated RBC (Bld) [#/Vol] 0 10*3/uL Normal 0-5 [facility] Comment on above: Performed By: #### L 501.4021, L300.3900, L300.4310, L500.2500, L100.0100, L501.5200 #### [facility] [address] [place], [address] Platelet mean volume (Bld) [Entitic vol] 9.8 fL Normal 6.2-12.0 [facility] Comment on above: Performed By: #### L 501.4021, L300.3900, L300.4310, L500.2500, L100.0100, L501.5200 #### [facility] [address] [place], [address] Platelets (Bld) [#/Vol] 159 10*3/uL Normal 150-450 [facility] Comment on above: Performed By: #### L 501.4021, L300.3900, L300.4310, L500.2500, L100.0100, L501.5200 #### [facility] [address] [place], [address] RBC (Bld) [#/Vol] 4.96 10*6/uL Normal 4.6-6.2 [facility] Comment on above: Performed By: #### L 501.4021, L300.3900, L300.4310, L500.2500, L100.0100, L501.5200 #### [facility] [address] [place], [address] RDW SD 39.9 fl Normal 35.1-43.9 [facility] Comment on above: Performed By: #### L 501.4021, L300.3900, L300.4310, L500.2500, L100.0100, L501.5200 #### [facility] [address] [place], [address] WBC (Bld) [#/Vol] 6.5 10*3/uL Normal 4.4-11.0 [facility] Comment on above: Performed By: #### L 501.4021, L300.3900, L300.4310, L500.2500, L100.0100, L501.5200 #### [facility] [address] [place], [address] Chest 1 Viewon 10-20-2024 Chest 1 View [facility] Imaging Services [address] [place] [address] Chest 1 View MR#: [id number] Acct: [id number] Name: ASHLEY WEINSTEIN Rep #: [id number] : 1945 M 79 From: Gorge arroyo MD PCP: Dr. Lowell Malik MD Status: [facility] ER Study: Chest 1 View Date of Exam: 10/20/24 Exam# [id number] Ordering Dr: Nehemiah Puckett DO PROCEDURE: CHEST 1 VIEW 10/20/2024 REASON FOR EXAM: NEURO DEFICIT, ACUTE, STROKE SUSPECTED TECHNIQUE: Frontal view of the chest. COMPARISON: None available. FINDINGS: Hardware: Sternotomy wires are present. Heart: Heart size is moderately enlarged. Lungs: The lungs are clear. Bones: Degenerative changes are identified within the thoracic spine. Other: Prior left reverse shoulder replacement. RAD/Chest 1 View IMPRESSION: Cardiomegaly. The lungs are clear. Reading Location: [facility] CC: Dr. Nehemiah Puckett DO; Dr. Lowell Malik MD Filter Press Pumper: Signed Normal [facility] Echo Complete W/ Contraston 10-20-2024 Echo Complete W/ Contrast [facility] [address] [place] [address] Echo Complete W/ Contrast 10/21/24 1036 MR#: [id number] Acct: [id number] Name: ASHLEY WEINSTEIN Rep #: [id number] : 1945 79 From: Canelo Garcia MD Attending Dr: Dr. Ej Recio DO Status: A DM SHASHI Ordering Dr: Judy Aguilar MD Date: 10/20/24 Location: PCU Sex: M C Admitted: 10/20/24 Reason For Study Reason For Study: TIA/CVA Procedure This was a 2D Doppler, Color Flow transthoracic echocardiogram. The study was technically difficult. Due to body habitus. Contrast injection was performed. Exam performed portable in patient room. Left Ventricle Normal LV size. Left ventricular systolic function is normal. The left ventricular ejection fraction is 55 %. No regional wall motion abnormalities noted. Right Ventricle Normal RV size. Normal systolic function. Atria Normal left atrium. Normal right atrium. Bubble contrast study negative for right to left interatrial shunt. Mitral Valve Normal mitral valve. Tricuspid Valve Normal tricuspid valve. Aortic Valve Trisinus/trileaflet aortic valve. Pulmonic Valve Normal pulmonic valve. Great Vessels Normal aortic root. The pulmonary artery is normal size. Inferior vena cava collapse with respiration. Pericardium/Pleural No pericardial effusion. Medication Diluted definity 3.0ml given slow IV push to enhance endocardial definition. Performed a rapid injection of agitated mix of 9 cc saline and 1cc air to assess for atrial septal defect. MMode/2D Measurements Calculations LVIDd: 5.4 cm IVSd: 1.1 cm Ao root diam: 3.6 cm LVIDs: 3.4 cm LVPWd: 1.1 cm FS: 36.7 % _ LAV(MOD-bp): 50.7 ml LVAd ap4: 32.0 cm2 LVAd ap2: 21.6 cm2 LAV(MOD-bp) Indexed: 25.2 ml/m2 LVLd ap4: 7.7 cm LVLd ap2: 6.9 cm LAV(MOD-sp2): 44.6 ml EDV(MOD-sp4): 109.6 ml EDV(MOD-sp2): 57.3 ml LAV(MOD-sp4): 55.8 ml EDV(sp4-el): 113.6 ml EDV(sp2-el): 57.6 ml LVAs ap4: 17.9 cm2 LVAs ap2: 12.3 cm2 LVLs ap4: 6.2 cm LVLs ap2: 5.6 cm ESV(MOD-sp4): 42.1 ml ESV(MOD-sp2): 22.2 ml ESV(sp4-el): 43.7 ml ESV(sp2-el): 22.9 ml EF(MOD-sp4): 61.6 % EF(MOD-sp2): 61.3 % EF(sp4-el): 61.5 % _ SV(MOD-sp4): 67.5 ml SV(MOD-sp2): 35.2 ml SV(sp4-el): 69.9 ml SI(MOD-sp4): 33.6 ml/m2 SI(MOD-sp2): 17.5 ml/m2 _ LA A4 area: 19.0 cm2 LA dimension(2D): 4.4 cm RA A4 area: 15.8 cm2 _ TAPSE: 1.6 cm Time Measurements MV dec time: 0.16 sec Doppler Measurements Calculations MV E max angel: 69.0 cm/sec Lat Peak E' Angel: 10.3 cm/sec Med Peak E' Angel: 8.3 cm/sec MV A max angel: 76.4 cm/sec E/E' lat: 6.7 E/E' med: 8.3 MV E/A: 0.90 _ Ao V2 max: 136.9 cm/sec LV V1 max: 90.8 cm/sec PA V2 max: 121.5 cm/sec Ao max P.5 mmHg LV V1 max P.3 mmHg PA V2 mean: 86.7 cm/sec Ao V2 mean: 94.1 cm/sec LV V1 mean P.7 mmHg Ao mean P.1 mmHg LV V1 mean: 62.0 cm/sec Ao V2 VTI: 25.6 cm LV V1 VTI: 19.9 cm AV (velocity ratio): 0.78 _ TR max angel: 307.2 cm/sec TR max P.7 mmHg ECHO/Echo Complete W/ Contrast Interpretation Summary Normal LV size. Left ventricular systolic function is normal. The left ventricular ejection fraction is 55 %. Bubble contrast study negative for right to left interatrial shunt. Ordering Physician: Judy Aguilar Referring Physician: MARIA MALIK Performed By: Melissa Gomez, GORAN, RVT 10/21/24 1257 Date Canelo Garcia MD CC: Dr. Lowell Malik MD; Dr. Ej Recio DO; Dr. Judy Aguilar MD Date Dictated: 10/21/24 1036 Date Transcribed: 10/21/24 1257 Filter Press Pumper: Signed Normal [facility] Emergency Department Summary on 10-20-2024 Emergency Department Summary [facility] Medical Records Department [address] [place] [address] Emergency Department Summary 10/20/24 MR#: [id number] Acct: [id number] Name: ASHLEY WEINSTEIN Rep #: [id number] : 1945 79 From: Nehemiah Puckett DO PCP: Dr. Lowell Malik MD Status:REG ER Location: ED HPI History of Present Illness Chief Complaint: Stroke Alert Narrative Narrative: Chief complaint and HPI: Left leg weakness. History taken by medical record (cardiology office note) as well as patient. 79-year-old male with history of CAD status post coronary bypass, HTN, HLD, renal insufficiency and peripheral neuropathy. presents for evaluation of left leg weakness. Last known normal was at 7:30 PM on 10/19/2024. Patient states he went to bed around 7:30 PM and was at his normal state of health. He states that he woke up this morning with left leg weakness. He states the weakness is causing him difficulty in ambulation. He denies any trauma or injury. Denies any fever, chills, shortness of breath, chest pain, abdominal pain, nausea, vomiting, diarrhea, constipation, dysuria. Denies any new numbness or tingling, aphasia, dysphagia. Not on a blood thinner. Patient was evaluated in triage and made a stroke alert. He was taken immediately to CT as he was within the LVO window. He is outside the window for TNK. Review of systems: See HPI Medications: As listed on the chart Allergies: As listed on the chart PFSH: Per chart Vital signs: As listed on the chart. Reviewed. Physical exam: Gen: A O x4, NAD Head: Normocephalic, atraumatic Eyes: No sclera icterus, conjunctiva clear, PERRL, EOMI ENT: Moist mucous membranes, No facial asymmetry Neck: Trachea midline, No JVD CV: RRR, no murmurs, no peripheral edema Resp: Lungs CTA BL, no w/r/c GI: Abd soft, non-distended, non-tender, no r/r/g Musc: Full ROM, no deformity, strength +5/5 in all extremities except for the left lower extremity strength is +4/5 causing a slight drift of the left lower extremity without hitting the bed, no pronator drift, no ataxia with [id number] or gerard to heel testing, with ambulation patient does lean to the left but states that it is secondary to weakness and not dizziness Skin: Warm, dry, intact Neuro: Alert, oriented, grossly intact, sensation intact, no focal deficits, no aphasia, no dysarthria, NIH 1 Psych: Cooperative, appropriate mood and affect [facility] Medical History Postoperative urinary retention Wears glasses Dietary restriction Non-smoker History of edema History of echocardiogram Closed fracture of left proximal humerus Abnormal stress test Mild cognitive impairment Depression Renal insufficiency Peripheral neuropathy CATIE (obstructive sleep apnea) Insomnia Hyperlipidemia GERD (gastroesophageal reflux disease) Chronic idiopathic constipation Atherosclerosis of coronary artery of [place] heart without angina pectoris BPH (benign prostatic hyperplasia) CPAP (continuous positive airway pressure) dependence History of stress test Hypertension History of heart attack Cardiology follow-up encounter Home Medications ???Medication ???Instructions ???Recorded ???Last Taken ???Type amlodipine 10 mg tablet 10 mg PO DAILY 07/04/21 Unknown Hi story atorvastatin 40 mg tablet 40 mg PO DAILY 07/04/21 Unknown Hi story duloxetine 30 mg capsule,delayed 30 mg PO BID 07/04/21 Unknown Hist ory release metoprolol tartrate 25 mg tablet 25 mg PO BID 07/04/21 Unknown Hist ory acetaminophen 500 mg capsule 500 mg PO Q6H PRN Pain 10/11/22 Un known History docusate sodium 100 mg capsule 100 mg PO BID PRN Constipation Unknown History donepezil 5 mg tablet 5 mg PO QHS 10/11/22 Unknown Histo ry magnesium 200 mg tablet 200 mg PO MOWEFR 10/11/22 Unknown History melatonin 5 mg tablet 5 mg PO HS PRN Insomnia 10/11/22 U nknown History omeprazole 40 mg capsule,delayed 40 mg PO DAILY 10/11/22 Unknown Hi story release aspirin 81 mg tablet,delayed 81 mg PO DAILY 03/14/23 Unknown Hi story release (Adult Low Dose Aspirin) gabapentin 300 mg capsule 300 mg PO QHS 10/20/24 10/19/24 Hi story Allergy/AdvReac Type Severity Reaction Status Date / Time Penicillins (PCN) Allergy Other Verified 11/20/23 09:00 Family History Mother Diabetes Father Heart disease Surgical History History of left shoulder replacement ( 03/11/23) History of transurethral resection of prostate History of colonoscopy History of coronary artery bypass graft x 3 ( 08/02/09) History of carpal tunnel surgery Failed CABG (coronary artery bypass graft) History of cardiac catheterization History of bunionectomy Hx laparoscopic cholecys (more content not included)... Normal [facility] H AND P Exam - Hospitaliston 10-20-2024 H&P Exam - Hospitalist [facility] Medical Records Department [address] [place] [address] H P Exam - Hospitalist 10/20/24 1552 MR#: [id number] Acct: [id number] Name: ASHLEY WEINSTEIN Rep #: [id number] : 1945 79 From: Judy Aguilar MD PCP: Dr. Lowell Malik MD Status:REG ER Location: ED HPI - General General Date of Admission: 10/20/24 Date of Service: 10/20/24 Chief Complaint: Left lower extremity weakness HPI Narrative ASHLEY WEINSTEIN, is a 79-year-old male history of coronary artery disease status post bypass, GERD, neuropathy presented [facility] ED 10/20/2024 with left leg weakness and was a stroke alert. Went to bed at 7:30 PM and woke up this morning with left leg weakness causing difficulty in ambulation. Patient with no LVO on CTA, hospitalist contacted for admission for stroke workup. Patient evaluated at bedside. Patient does report that he was alone up to bed last night and woke up today and has the left lower extremity weakness, he is unsure if it is improved monitorings he is not been up and moving around, may be some paresthesias in the left lower extremity but denies any other acute neurological complaints [facility] Medical History (Updated 10/20/24 @ 15:[address] Judy Aguilar MD) Abnormal stress test Atherosclerosis of coronary artery of [place] heart without angina pectoris BPH (benign prostatic hyperplasia) Cardiology follow-up encounter Chronic idiopathic constipation Closed fracture of left proximal humerus CPAP (continuous positive airway pressure) dependence Depression Dietary restriction GERD (gastroesophageal reflux disease) History of echocardiogram History of edema History of heart attack History of stress test Hyperlipidemia Hypertension Insomnia Mild cognitive impairment Non-smoker CATIE (obstructive sleep apnea) Peripheral neuropathy Postoperative urinary retention Renal insufficiency Wears glasses Home Medications ???Medication ???Instructions ???Recorded ???Last Taken ???Type amlodipine 10 mg tablet 10 mg PO DAILY 07/04/21 10/20/24 H istory atorvastatin 40 mg tablet 40 mg PO DAILY 07/04/21 10/20/24 H istory duloxetine 30 mg capsule,delayed 30 mg PO BID 07/04/21 10/20/24 His tory release metoprolol tartrate 25 mg tablet 25 mg PO BID 07/04/21 10/20/24 His tory acetaminophen 500 mg capsule 500 mg PO Q6H PRN Pain 10/11/22 History docusate sodium 100 mg capsule 100 mg PO BID PRN Constipation Unknown History donepezil 5 mg tablet 5 mg PO QHS 10/11/22 10/19/24 Hist ory magnesium 200 mg tablet 200 mg PO DAILY 10/11/22 10/20/24 History melatonin 5 mg tablet 15 mg PO QHS PRN Insomnia 10/11/22 10/19/24 History omeprazole 40 mg capsule,delayed 40 mg PO DAILY PRN GERD 10/11/22 U nknown History release aspirin 81 mg tablet,delayed 81 mg PO DAILY 03/14/23 10/20/24 H istory release (Adult Low Dose Aspirin) gabapentin 300 mg capsule 300 mg PO QHS 10/20/24 10/19/24 Hi story Allergy/AdvReac Type Severity Reaction Status Date / Time Penicillins (PCN) Allergy Other Verified 11/20/23 09:00 Family History Mother Diabetes Father Heart disease Surgical History Failed CABG (coronary artery bypass graft) History of bunionectomy History of cardiac catheterization History of carotid endarterectomy History of carpal tunnel surgery History of colonoscopy History of coronary artery bypass graft x 3 ( 08/02/09) History of left shoulder replacement ( 09/12/23) History of open heart surgery History of transurethral resection of prostate Hx laparoscopic cholecystectomy ( 05/30/21) Social History Smoking Status: Never smoker alcohol intake: never ROS ROS Narrative General: Denies fever/chills HENT: Denies headache, has little bit of nasal congestion, denies sore throat EYES: Denies changes in vision Resp: Denies cough, denies shortness of breath Cardiac: Denies chest pain GI: Denies abdominal pain, denies changes in bowel, denies nausea/vomiting : Denies changes in urination Extremity: Denies swelling MSK: Weakness in left lower extremity Neuro: Weakness maybe some numbness in left lower extremity Heme: Denies any bleeding or bruising Skin: Denies rashes Psychiatric: No complaints voiced Vital Signs Vital Signs Vital Signs: 10/20/24 14:07 10/20/24 14:25 10/20/24 14:25 Temperature 98 F Temperature Source Oral Pulse Rate 83 64 Respiratory Rate 18 18 Blood Pressure 138/72 H 156/68 H Blood Pressure Mean 94 97 Pulse Ox 98 97 Oxygen Delivery Method Room Air Room Air Room Air 10/20/24 14:29 10/20/24 14:45 10/20/24 15:06 Temperature Temperature So (more content not included)... Normal [facility] International normalized rat io (INR) calculationOrdered By: Nehemiah Puckett on 10-20-2024 INR Coag (Bld) [Relative time] 1.0 {INR} [facility] Ketones Test strip Ql (U)Ord ered By: Nehemiah Puckett on 10-20-2024 Ketones Ql (U) Negative Negative [facility] L499.0042on 10-20-2024 Trop T High Sen 14 ng/L Normal <=22 [facility] Comment on above: Performed By: #### L 499.0042 #### [facility] [place], [address] L501.4021on 10-20-2024 Trop T High Sen 14 ng/L Normal <=22 [facility] Comment on above: Performed By: #### L 501.4021, L300.3900, L300.4310, L500.2500, L100.0100, L501.5200 ####[facility] [address] [place], [address] Magnesiumon 10-20-2024 Magnesium [Mass/Vol] 2.2 mg/dL Normal 1.5-2.2 [facility] Comment on above: Performed By: #### L 501.4021, L300.3900, L300.4310, L500.2500, L100.0100, L501.5200 ####[facility] [address] [place], [place], [id number] Magnesium measurement (mass/ volume)Ordered By: Nehemiah Puckett on 10-20-2024 Magnesium (Unsp spec) [Mass/Vol] 2.2 mg/dL 1.5-2.2 [facility] Microscopic analysis of urin e for red blood cells (RBC)Ordered By: Nehemiah Puckett on 10-20-2024 Microscopic analysis of urine for red blood cells (RBC) 0 SEEN /hpf 0-5 [facility] Mucus LM Ql (Urine sed)Order ed By: Nehemiah Puckett on 10-20-2024 Mucus Ql (Urine sed) 0 SEEN /hpf [facility] Nitrite Test strip Ql (U)Ord ered By: Nehemiah Puckett on 10-20-2024 Nitrite Ql (U) Negative Negative [facility] Partial Thromboplast Timeon 10-20-2024 aPTT Coag (Bld) [Time] 28.5 s Normal 24.1-36.2 [facility] Comment on above: Performed By: #### L 501.4021, L300.3900, L300.4310, L500.2500, L100.0100, L501.5200 #### [facility] [address] [place], [place], [id number] Protein Test strip Ql (U)Ord ered By: Nehemiah Puckett on 10-20-2024 Protein Ql (U) 30 mg/dl High Negative [facility] Prothrombin Time w/INRon INR Coag (PPP) [Relative time] 1.0 {INR} Normal [facility] Comment on above: Performed By: #### L 501.4021, L300.3900, L300.4310, L500.2500, L100.0100, L501.5200 #### [facility] [address] [place], [address] PT Coag (PPP) [Time] 13.0 s Normal 11.7-14.9 [facility] Comment on above: Performed By: #### L 501.4021, L300.3900, L300.4310, L500.2500, L100.0100, L501.5200 #### [facility] [address] [place], [address] Prothrombin timeOrdered By: Nehemiah Puckett on 10-20-2024 PT Coag (PPP) [Time] 13.0 s 11.7-14.9 [facility] STROKE Brain/Head without Co nton 10-20-2024 STROKE Brain/Head without Cont [facility] Services [address] [place], [place] [address] STROKE Brain/Head without Cont MR#: [id number] Acct: [id number] Name: ASHLEY WEINSTEIN Rep #: [id number] : 1945 M 79 From: Gorge arroyo MD PCP: Dr. Lowell Malik MD Status: REG ER Study: STROKE Brain/Head without Cont Date of Exam: 0 10/20/24 Exam# [id number] Ordering Dr: Nehemiah Puckett DO PROCEDURE: STROKE BRAIN/HEAD WITHOUT CONT 10/20/2024 REASON FOR EXAM: NEURO DEFICIT, ACUTE, STROKE SUSPECTED TECHNIQUE: Head CT without intravenous contrast. Coronal and Sagittal reconstruction series were provided. One or more dose reduction techniques were used (e.g., Automated exposure control, adjustment of the mA and/or kV according to patient size, use of iterative reconstruction technique. RADIATION DOSE SUMMARY: CTDlvol: 44.99 mGy DLP: 846.73 mGycm COMPARISON: No priors available. FINDINGS: Brain: Low density in the periventricular white matter suggests mild chronic small vessel ischemic changes. Atherosclerotic plaque formation of the cavernous portions of the internal carotid arteries bilaterally. CSF Spaces: Mild generalized cerebral atrophy Sinuses/Mastoids: Clear at visualized levels Bones: Unremarkable CT/STROKE Brain/Head without Cont IMPRESSION: CHRONIC CHANGES. NO ACUTE FINDINGS. Red Alert: Nothing acute The critical information above was relayed directly by me by telephone to Nehemiah Puckett on 10/20/2024 at 2:29 pm with readback verification. Reading Location: [place] [address] CC: Dr. Nehemiah Puckett DO; Dr. Lowell Malik MD Filter Press Pumper: Signed Normal [facility] STROKE CTA Head AND Neck W/C onon 10-20-2024 STROKE CTA Head AND Neck W/Con [facility] Services [address] [place] [id number] STROKE CTA Head AND Neck W/Con MR#: [id number] Acct: [id number] Name: ASHLEY WEINSTEIN Rep #: [id number] : 1945 M 79 From: Iza Hirsch nd, MD PCP: Dr. Lowell Malik MD Status: REG ER Study: STROKE CTA Head AND Neck W/Con Date of Exam: 0 10/20/24 Exam# [id number] Ordering Dr: Nehemiah Puckett DO PROCEDURE: STROKE CTA HEAD AND NECK W/CON 10/20/2024 REASON FOR EXAM: NEURO DEFICIT, ACUTE, STROKE SUSPECTED TECHNIQUE: CTA imaging of the head and neck from the aortic arch to the skull vertex with out constrast and with intravenous contrast. Coronal and Sagittal reconstruction series were provided. 3D post processing with reformations, Maximum intensity projection (MIPs) Volume rendering and Shaded surface rendering was provided. CONTRAST: Isovue 370 VOLUME: 100 mL One or more dose reduction techniques were used (e.g., Automated exposure control, adjustment of the mA and/or kV according to patient size, use of iterative reconstruction technique). RADIATION DOSE SUMMARY: CTDlvol: 54 mGy DLP: 900 mGycm COMPARISON: Same-day CT head FINDINGS: See same day CT head for discussion of nonvascular findings. Three-vessel aortic arch with scattered calcific plaque. No focal stenosis or occlusion. Calcific plaque of the left vertebral artery at its origin resulting in mild focal narrowing. The right vertebral artery is widely patent. Calcific plaque of the right cervical common and internal carotid arteries resulting in 30% stenosis on the right by NASCET criteria. 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 Severe mixed atherosclerotic plaque of the left cervical common and internal carotid arteries resulting in 50% stenosis by NASCET criteria on the left. Surgical clips along the left cervical carotid artery, most compatible with prior endarterectomy. Calcification of the bilateral carotid siphons without focal narrowing. The bilateral anterior, middle and posterior cerebral arteries are widely patent. Calcific plaque of the left intracranial vertebral artery resulting in moderate narrowing. No aneurysm or AVM. Major venous structures: Unremarkable. Other findings: Skin thickening along the posterior right scalp. 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 Cervical spondylosis. CT/STROKE CTA Head AND Neck W/Con IMPRESSION: 1. No large vessel occlusion, AVM or aneurysm. 2. 30% stenosis of the right and 50% stenosis of the left carotid arteries by NASCET criteria. Surgical clips along the left common carotid artery, most compatible with prior endarterectomy. 3. 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 Reading Location: [facility] CC: Dr. Nehemiah Puckett, DO; Dr. Lowell Malik MD Filter Press Pumper: Signed Normal [facility] Squamous epithelial cells de tection in urine sediment by light microscopyOrdered By: Nehemiah Puckett on 10-20-2024 Epithelial cells.squamous LM Ql (Urine sed) 0 SEEN /hpf 0-5 [facility] Troponin T.cardiac [Mass/vol ume] in Serum or Plasma by High sensitivity methodOrdered By: Nehemiah Puckett on 10-20-2024 Troponin T.cardiac High sensitivity method [Mass/Vol] 14 ng/L <22 [facility] Troponin T.cardiac High sensitivity method [Mass/Vol] 14 ng/L <22 [facility] Urine clarityOrdered By: Duran Puckett on 10-20-2024 Clarity (U) Clear Clear [facility] Urine color determinationOrd ered By: Nehemiah Puckett on 10-20-2024 Color (U) Yellow Yellow [facility] Urine glucose detectionOrder ed By: Nehemiah Puckett on 10-20-2024 Glucose Ql (U) Normal mg/dl Normal [facility] Urine leukocyte esterase det ection by dipstickOrdered By: Nehemiah Puckett on 10-20-2024 Leukocyte esterase Test strip Ql (U) Negative Negative [facility] Urine pHOrdered By: Nehemiah Torre on 10-20-2024 pH (U) 7.0 [pH] 5.0 - 8.0 [facility] Urine sediment bacteria coun t by microscopy (number/high power field)Ordered By: Nehemiah Puckett on 10-20-2024 Bacteria LM.HPF (Urine sed) [#/Area] 0 /[HPF] None Seen [facility] Urine specific gravity measu rementOrdered By: Nehemiah Puckett on 10-20-2024 Specific gravity (U) [Rel density] 1.010 1.002-1.030 [facility] Urine urobilinogen measureme ntOrdered By: Nehemiah Puckett on 10-20-2024 Urobilinogen Ql (U) Normal mg/dl Normal [facility] White blood cell countOrdere d By: Nehemiah Puckett on 10-20-2024 White blood cell count 0 SEEN /hpf 0-5 [facility] CBC W Auto Differential pane l (Bld)on 06-07-2024 Basophils (Bld) [#/Vol] 0.02 x10*3/uL Normal 0.00-0.10 [facility] Comment on above: Performed By: #### 5 7021-8 #### ORTIZ GRAF ([id number]) [facility] ([facility]) [address] [place] [address] Basophils/100 WBC (Bld) 0.4 % Normal 0.0-2.0 [facility] Comment on above: Performed By: #### 7021-8 #### ORTIZ GRAF ([id number]) [facility] ([facility]) [address] [place] [address]149 Eosinophils (Bld) [#/Vol] 0.10 x10*3/uL Normal 0.00-0.40 [facility] Comment on above: Performed By: #### 7021-8 #### ORTIZ GRAF ([id number]) [facility] ([facility]) [address] [place] [address]2275 Eosinophils/100 WBC (Bld) 1.9 % Normal 0.0-6.0 [facility] Comment on above: Performed By: #### 7021-8 #### ORTIZ GRAF ([id number]) [facility] ([facility]) [address] [place] [address] 36199 Erythrocyte distribution width (RBC) [Ratio] 12.2 % Normal 11.5-14.5 [facility] Comment on above: Performed By: #### 5 7021-8 #### ORTIZ GRAF ([id number]) [facility] ([facility]) [address] [place] [address]127 Hematocrit (Bld) [Volume fraction] 46.0 % Normal 41.0-52.0 [facility] Comment on above: Performed By: #### 5 7021-8 #### ORTIZ GRAF ([id number]) [facility] ([facility]) [address] [place] [address] 06183 Hemoglobin (Bld) [Mass/Vol] 15.0 g/dL Normal 13.5-17.5 [facility] Comment on above: Performed By: #### 5 7021-8 #### ORTIZ GRAF ([id number]) [facility] ([facility]) [address] [place] [address] 12013 Immature granulocytes (Bld) [#/Vol] 0.02 x10*3/uL Normal 0.00-0.50 [facility] Comment on above: Performed By: #### 5 7021-8 #### ORTIZ GRAF ([id number]) [facility] ([facility]) [address] [place] [address] 20354 Immature granulocytes/100 WBC (Bld) 0.4 % Normal 0.0-0.9 [facility] Comment on above: Result Comment: Daniela ture Granulocyte Count (IG) includes promyelocytes, myelocytes and metamyelocytes but does not include bands. Percent differential counts (%) should be interpreted in the context of the absolute cell counts (cells/UL). Performed By: #### 5 7021-8 #### ORTIZ GRAF ([id number]) [facility] ([facility]) [address] [place] [address] 70285 Lymphocytes (Bld) [#/Vol] 1.64 x10*3/uL Normal 0.80-3.00 [facility] Comment on above: Performed By: #### 5 7021-8 #### ORTIZ GRAF ([id number]) [facility] ([facility]) [address] [place] [address] 77409 Lymphocytes/100 WBC (Bld) 31.2 % Normal 13.0-44.0 [facility] Comment on above: Performed By: #### 5 7021-8 #### ORTIZ GRAF ([id number]) [facility] ([facility]) [address] [place] [address] 64678 MCH (RBC) [Entitic mass] 29.7 pg Normal 26.0-34.0 [facility] Comment on above: Performed By: #### 5 7021-8 #### ORTIZ GRAF ([id number]) [facility] ([facility]) [address] [place] [address] 58984 MCHC (RBC) [Mass/Vol] 32.6 g/dL Normal 32.0-36.0 [facility] Comment on above: Performed By: #### 5 7021-8 #### ORTIZ GRAF ([id number]) [facility] ([facility]) [address] [place] [address] 64052 MCV (RBC) [Entitic vol] 91 fL Normal 80-100 [facility] Comment on above: Performed By: #### 5 7021-8 #### ORTIZ GRAF ([id number]) [facility] ([facility]) [address] [place] [address] 75262 Monocytes (Bld) [#/Vol] 0.51 x10*3/uL Normal 0.05-0.80 [facility] Comment on above: Performed By: #### 5 7021-8 #### ORTIZ GRAF ([id number]) [facility] ([facility]) [address] [place] [address] 60108 Monocytes/100 WBC (Bld) 9.7 % Normal 2.0-10.0 [facility] Comment on above: Performed By: #### 5 7021-8 #### ORTIZ GRAF (77862) [facility] ([facility]) [address] [place] [address] 33634 Neutrophils (Bld) [#/Vol] 2.97 x10*3/uL Normal 1.60-5.50 [facility] Comment on above: Result Comment: Perc ent differential counts (%) should be interpreted in the context of the absolute cell counts (cells/uL). Performed By: #### 5 7021-8 #### ORTIZ GRAF ([id number]) [facility] ([facility]) [address] [place] [address] 75271 Neutrophils/100 WBC (Bld) 56.4 % Normal 40.0-80.0 [facility] Comment on above: Performed By: #### 5 7021-8 #### ORTIZ GRAF ([id number]) [facility] ([facility]) [address] [place] [address] 37203 Nucleated RBC/100 WBC (Bld) [Ratio] 0.0 /100 WBCs Normal 0.0-0.0 [facility] Comment on above: Performed By: #### 5 7021-8 #### ORTIZ GRAF ([id number]) [facility] ([facility]) [address] [place] [address] 95767 Platelets (Bld) [#/Vol] 153 x10*3/uL Normal 150-450 [facility] Comment on above: Performed By: #### 5 7021-8 #### ORTIZ GRAF ([id number]) [facility] ([facility]) [address] [place] [address] 52496 RBC (Bld) [#/Vol] 5.05 x10*6/uL Normal 4.50-5.90 [facility] Comment on above: Performed By: #### 5 7021-8 #### ORTIZ GRAF ([id number]) [facility] ([facility]) [address] [place], [place] [phone] WBC (Bld) [#/Vol] 5.3 x10*3/uL Normal 4.4-11.3 [facility] Comment on above: Performed By: #### 5 7021-8 #### ORTIZ GRAF ([id number]) [facility] ([facility]) [address] [place], [place] [phone] Cobalaminson 06-07-2024 Cobalamin (Vitamin B12) [Mass/Vol] 275 pg/mL Normal 211-911 [facility] Comment on above: Performed By: #### 2 132-9 #### ORTIZ GRAF ([id number]) [facility] ([facility]) [address] [place] [address] Comprehensive metabolic 2000 panelon 06-07-2024 Albumin BCP dye [Mass/Vol] 3.9 g/dL Normal 3.4-5.0 [facility] Comment on above: Performed By: #### 2 4323-8 #### ORTIZ GRAF ([id number]) [facility] ([facility]) [address] [place] [address] 79355 ALP [Catalytic activity/Vol] 94 U/L Normal 33-136 [facility] Comment on above: Performed By: #### 2 4323-8 #### ORTIZ GRAF ([id number]) [facility] ([facility]) [address] [place] [address] 98855 ALT With P-5'-P [Catalytic activity/Vol] 23 U/L Normal 10-52 [facility] Comment on above: Result Comment: Jessica ents treated with Sulfasalazine may generate falsely decreased results for ALT. Performed By: #### 2 4323-8 #### ORTIZ GRAF ([id number]) [facility] ([facility]) [address] [place] [address] Anion gap [Moles/Vol] 8 mmol/L Low 10-20 [facility] Comment on above: Performed By: #### 2 4323-8 #### ORTIZ GRAF ([id number]) [facility] ([facility]) [address] [place] [address] AST With P-5'-P [Catalytic activity/Vol] 22 U/L Normal 9-39 [facility] Comment on above: Performed By: #### 2 432-8 #### ORTIZ GRAF ([id number]) [facility] ([facility]) [address] [place] [address] 95399 Bilirubin [Mass/Vol] 0.7 mg/dL Normal 0.0-1.2 [facility] Comment on above: Performed By: #### 2 432-8 #### ORTIZ GRAF ([id number]) [facility] ([facility]) [address] [place] [address] 14629 Calcium [Mass/Vol] 8.8 mg/dL Normal 8.6-10.3 [facility] Comment on above: Performed By: #### 2 4323-8 #### ORTIZ GRAF ([id number]) [facility] ([facility]) [address], [place] [address] Chloride [Moles/Vol] 105 mmol/L Normal 98-107 [facility] Comment on above: Performed By: #### 2 4323-8 #### ORTIZ GRAF ([id number]) [facility] ([facility]) [address] [place] [address] CO2 [Moles/Vol] 32 mmol/L Normal 21-32 [facility] Comment on above: Performed By: #### 2 4323-8 #### ORTIZ GRAF ([id number]) [facility] ([facility]) [facility] [place] [address] Creatinine [Mass/Vol] 1.16 mg/dL Normal 0.50-1.30 [facility] Comment on above: Performed By: #### 2 4323-8 #### ORTIZ GRAF ([id number]) [facility] ([facility]) [address] [place] [address] 32078 Glomerular filtration rate/1.73 sq M.predicted 65 mL/min/1.73m*2 Normal >60 [facility] Comment on above: Result Comment: Calc ulations of estimated GFR are performed using the 2020 CKD-EPI Study Refit equation without the race variable for the IDMS-Traceable creatinine methods. https://jasn.asnjournals.org/content/early//ASN.48635 86019 Performed By: #### 2 4323-8 #### ORTIZ GRAF (26948) [facility] ([facility]) [address] [place] [address] 78793 Glucose [Mass/Vol] 97 mg/dL Normal 74-99 [facility] Comment on above: Performed By: #### 2 4323-8 #### ORTIZ GRAF ([id number]) [facility] ([facility]) [address] [place] [address] 77691 Potassium [Moles/Vol] 4.8 mmol/L Normal 3.5-5.3 [facility] Comment on above: Performed By: #### 2 4323-8 #### ORTIZ GRAF ([id number]) [facility] ([facility]) [address] [place] [address]4224 Protein [Mass/Vol] 6.3 g/dL Low 6.4-8.2 [facility] Comment on above: Performed By: #### 2 4323-8 #### ORTIZ GRAF ([id number]) [facility] ([facility]) [address] [place] [address] 70247 Sodium [Moles/Vol] 140 mmol/L Normal 136-145 [facility] Comment on above: Performed By: #### 2 4323-8 #### ORTIZ GRAF (32822) [facility] ([facility]) [facility] [place] [address] Urea nitrogen [Mass/Vol] 24 mg/dL High 6-23 [facility] Comment on above: Performed By: #### 2 4323-8 #### ORTIZ GRAF ([id number]) [facility] ([facility]) [address] [place] [address] 84137 HbA1c (Bld) [Mass fraction]o n 06-07-2024 Average glucose Estimated from glycated hemoglobin (Bld) [Mass/Vol] 108 mg/dL Normal Not Established [facility] Comment on above: Order Comment: Diagn osis of Diabetes-Adults Non-Diabetic: < or = 5.6% Increased risk for developing diabetes: 5.7-6.4% Diagnostic of diabetes: > or = 6.5% Performed By: #### 4 548-4 #### SIDNEY Smith ([id number]) [facility] ([facility]) [address] [place] [address] 35994 Hemoglobin A1c/Hemoglobin.to nic 06-07-2024 HbA1c (Bld) [Mass fraction] 5.4 % Normal See comment [facility] Comment on above: Order Comment: Diagn osis of Diabetes-Adults Non-Diabetic: < or = 5.6% Increased risk for developing diabetes: 5.7-6.4% Diagnostic of diabetes: > or = 6.5% Performed By: #### 4 548-4 #### SIDNEY Smith ([id number]) [facility] ([facility]) [address] [place] [address] 65134 Lipid 1996 panelon 4 Cholesterol [Mass/Vol] 98 mg/dL Normal 0-[address] [facility] Comment on above: Result Comment: Age Desirable Borderline High High 0-19 Y 0 - 169 170 - 199 >/= 200 20-24 Y 0 - 189 190 - 224 >/= 225 >24 Y 0 - 199 200 - 239 >/= 240 All ranges are based on fasting samples. Specific therapeutic targets will vary based on patient-specific cardiac risk. Pediatric guidelines reference:Pediatrics 2011, 128(S5).Adult guidelines reference: NCEP ATPIII Guidelines,KRISTOPHER 2001, 258:2486-97 Venipuncture immediately after or during the administration of Metamizole may lead to falsely low results. Testing should be performed immediately prior to Metamizole dosing. Performed By: #### 2 4331-1 #### ORTIZ GRAF ([id number]) [facility] ([facility]) [facility] [place] [address] Cholesterol in HDL [Mass/Vol] 36.0 mg/dL Normal [facility] Comment on above: Result Comment: Age Very Low Low Normal High 0-19 Y < 35 < 40 40-45 ---- 20-24 Y ---- < 40 >45 ---- >24 Y ---- < 40 40-60 >60 Performed By: #### 2 4331-1 #### ORTIZ GRAF (79462) [facility] ([facility]) [address] [place] [address] 91745 Cholesterol in LDL [Mass/Vol] 30 mg/dL Normal <=99 [facility] Comment on above: Result Comment: Near Borderline AGE Desirable Optimal High High Very High 0-19 Y 0 - 109 --- 110-129 >/= 130 ---- 20-24 Y 0 - 119 --- 120-159 >/= 160 ---- >24 Y 0 - 99 100-129 130-159 160-189 >/=190 Performed By: #### 2 4331-1 #### ORTIZ GRAF (33850) [facility] ([facility]) [address] [place] [address] 80585 Cholesterol in VLDL [Mass/Vol] 32 mg/dL Normal 0-40 [facility] Comment on above: Performed By: #### 2 4331-1 #### ORTIZ GRAF ([id number]) [facility] ([facility]) [address] [place] [address] 99770 CHOLESTEROL/HDL RATIO 2.7 Normal [facility] Comment on above: Result Comment: Ref Values Desirable < 3.4 High Risk > 5.0 Performed By: #### 2 4331-1 #### ORTIZ GRAF ([id number]) [facility] ([facility]) [address] [place] [address] NON HDL CHOLESTEROL 62 mg/dL Normal 0-149 [facility] Comment on above: Result Comment: Age Desirable Borderline High High Very High 0-19 Y 0 - 119 120 - 144 >/= 145 >/= 160 20-24 Y 0 - 149 150 - 189 >/= 190 ---- >24 Y 30 mg/dL above LDL Cholesterol goal Performed By: #### 2 4331-1 #### ORTIZ GRAF (72426) [facility] ([facility]) [facility] [place] [address] Triglyceride [Mass/Vol] 162 mg/dL High 0-149 [facility] Comment on above: Result Comment: Age Desirable Borderline High Very High SEX:B mg/dL mg/dL mg/dL mg/dL <=14D 86-277 ---- ---- ---- 15D-365D 55-277 ---- ---- ---- 1Y-9Y 0-74 75-99 >=100 ---- 10Y-19Y 0-89 90-129 >=130 ---- 20Y-24Y 0-114 115-149 >=150 ---- >= 25Y 0-149 150-199 200-499 >=500 Venipuncture immediately after or during the administration of Metamizole may lead to falsely low results. Testing should be performed immediately prior to Metamizole dosing. Performed By: #### 2 4331-1 #### ORTIZ GRAF ([id number]) [facility] ([facility]) [facility] [place] [address] Prostate specific Agon 06-07 Prostate specific Ag [Mass/Vol] 1.63 ng/mL Normal <=4.00 [facility] Comment on above: Order Comment: The F DA requires that the method used for PSA assay be reported to the physician. Values obtained with different assay methods must not be used interchangeably. This test was performed at [facility] using the [employer] PSA assay is a two-site immunoenzymatic sandwich assay. The assay is approved for measurement of prostate-specific antigen (PSA)in serum and may be used in conjunction with a digital rectal examination in men 50 years and older as an aid in detection of prostate cancer. 5-Kdunw-tkvomqbhz inhibitors (e.g. Proscar, Finasteride, Avodart, Dutasteride and Cheryl) for the treatment of BPH have been shown to lower PSA levels by an average of 50% after 6 months of treatment. Performed By: #### 2 857-1 #### ORTIZ GRAF (79552) [facility] ([facility]) [address] [place] [address] 14362 CBC W Auto Differential pane l (Bld)on 12-16-2023 Basophils (Bld) [#/Vol] 0.02 x10*3/uL Normal 0.00-0.10 [facility] Comment on above: Performed By: #### 5 7021-8 #### ORTIZ GRAF (73533) [facility] ([facility]) [address] [place] [address] 13782 Basophils/100 WBC (Bld) 0.4 % Normal 0.0-2.0 [facility] Comment on above: Performed By: #### 5 7021-8 #### ORTIZ GRAF (02865) [facility] ([facility]) [address] [place] [address] 87289 Eosinophils (Bld) [#/Vol] 0.11 x10*3/uL Normal 0.00-0.40 [facility] Comment on above: Performed By: #### 5 7021-8 #### ORTIZ GRAF (40909) [facility] ([facility]) [address] [place] [address] 72222 Eosinophils/100 WBC (Bld) 2.0 % Normal 0.0-6.0 [facility] Comment on above: Performed By: #### 5 7021-8 #### ORTIZ GRAF (88846) [facility] ([facility]) [address] [place] [address] 87396 Erythrocyte distribution width (RBC) [Ratio] 12.5 % Normal 11.5-14.5 [facility] Comment on above: Performed By: #### 5 7021-8 #### ORTIZ GRAF (72047) [facility] ([facility]) [address] [place] [address] 85548 Hematocrit (Bld) [Volume fraction] 48.3 % Normal 41.0-52.0 [facility] Comment on above: Performed By: #### 5 7021-8 #### OTRIZ GRAF ([id number]) [facility] ([facility]) [address] [place] [address] 85236 Hemoglobin (Bld) [Mass/Vol] 15.1 g/dL Normal 13.5-17.5 [facility] Comment on above: Performed By: #### 5 7021-8 #### ORTIZ GRAF (60689) [facility] ([facility]) [address] [place] [address] 68233 Immature granulocytes (Bld) [#/Vol] 0.01 x10*3/uL Normal 0.00-0.50 [facility] Comment on above: Performed By: #### 5 7021-8 #### ORTIZ GRAF (42272) [facility] ([facility]) [address] [place] [address] 71912 Immature granulocytes/100 WBC (Bld) 0.2 % Normal 0.0-0.9 [facility] Comment on above: Result Comment: Daniela ture Granulocyte Count (IG) includes promyelocytes, myelocytes and metamyelocytes but does not include bands. Percent differential counts (%) should be interpreted in the context of the absolute cell counts (cells/UL). Performed By: #### 5 7021-8 #### ORTIZ GRAF ([id number]) [facility] ([facility]) [address] [place] [address] 22856 Lymphocytes (Bld) [#/Vol] 1.96 x10*3/uL Normal 0.80-3.00 [facility] Comment on above: Performed By: #### 5 7021-8 #### ORTIZ GRAF (72223) [facility] ([facility]) [address] [place] [address] 18786 Lymphocytes/100 WBC (Bld) 36.0 % Normal 13.0-44.0 [facility] Comment on above: Performed By: #### 5 7021-8 #### ORTIZ GRAF (99806) [facility] ([facility]) [address] [place] [address] 50267 MCH (RBC) [Entitic mass] 28.5 pg Normal 26.0-34.0 [facility] Comment on above: Performed By: #### 5 7021-8 #### ORTIZ GRAF (60497) [facility] ([facility]) [address] [place] [address] 09050 MCHC (RBC) [Mass/Vol] 31.3 g/dL Low 32.0-36.0 [facility] Comment on above: Performed By: #### 5 7021-8 #### ORTIZ GRAF ([id number]) [facility] ([facility]) [address] [place] [address] 00715 MCV (RBC) [Entitic vol] 91 fL Normal 80-100 [facility] Comment on above: Performed By: #### 5 7021-8 #### ORTIZ GRAF (81052) [facility] ([facility]) [address] [place] [address] 20355 Monocytes (Bld) [#/Vol] 0.54 x10*3/uL Normal 0.05-0.80 [facility] Comment on above: Performed By: #### 5 7021-8 #### ORTIZ GRAF (26822) [facility] ([facility]) [address] [place] [address] 06214 Monocytes/100 WBC (Bld) 9.9 % Normal 2.0-10.0 [facility] Comment on above: Performed By: #### 5 7021-8 #### ORTIZ GRAF (97214) [facility] ([facility]) [address] [place] [address] 20629 Neutrophils (Bld) [#/Vol] 2.80 x10*3/uL Normal 1.60-5.50 [facility] Comment on above: Result Comment: Perc ent differential counts (%) should be interpreted in the context of the absolute cell counts (cells/uL). Performed By: #### 5 7021-8 #### ORTIZ GRAF (87143) [facility] ([facility]) [address] [place] [address] 74435 Neutrophils/100 WBC (Bld) 51.5 % Normal 40.0-80.0 [facility] Comment on above: Performed By: #### 5 7021-8 #### ORTIZ GRAF (90161) [facility] ([facility]) [address] [place] [address] 09362 Nucleated RBC/100 WBC (Bld) [Ratio] 0.0 /100 WBCs Normal 0.0-0.0 [facility] Comment on above: Performed By: #### 5 7021-8 #### ORTIZ GRAF (40951) [facility] ([facility]) [address] [place] [address] 52323 Platelets (Bld) [#/Vol] 156 x10*3/uL Normal 150-450 [facility] Comment on above: Performed By: #### 5 7021-8 #### ORTIZ GRAF (02043) [facility] ([facility]) [address] [place] [address] 21971 RBC (Bld) [#/Vol] 5.30 x10*6/uL Normal 4.50-5.90 [facility] Comment on above: Performed By: #### 5 7021-8 #### ORTIZ GRAF (08389) [facility] ([facility]) [address] [place] [address] 72490 WBC (Bld) [#/Vol] 5.4 x10*3/uL Normal 4.4-11.3 [facility] Comment on above: Performed By: #### 5 7021-8 #### ORTIZ GRAF (03659) [facility] ([facility]) [address] [place] [address] 44835 Cholesterol in LDL Direct as say [Mass/Vol]on 12-16-2023 Cholesterol in LDL [Mass/Vol] 37 mg/dL Normal 0-129 [facility] Comment on above: Order Comment: Isabella yaron levels of LDL cholesterol are recognized as a spann factor in the development of atherosclerosis and CHD. The direct LDL cholesterol test can be used to assess cardiovascular risk and monitor therapy as a follow up to a lipid profile when triglycerides are significantly elevated. Performed By: #### 1 8262-6 #### SIDNEY Smith ([id number]) [facility] ([facility]) [id number] [place] [address] 43788 Cobalaminson 12-16-2023 Cobalamin (Vitamin B12) [Mass/Vol] 1031 pg/mL High 211-911 [facility] Comment on above: Performed By: #### 2 132-9 #### ORTIZ GRAF (05422) [facility] ([facility]) [address] [place] [address] 78131 Comprehensive metabolic 2000 panelon 12-16-2023 Albumin BCP dye [Mass/Vol] 4.2 g/dL Normal 3.4-5.0 [facility] Comment on above: Performed By: #### 2 4323-8 #### ORTIZ GRAF (60952) [facility] ([facility]) [address] [place] [address] 60908 ALP [Catalytic activity/Vol] 102 U/L Normal 33-136 [facility] Comment on above: Performed By: #### 2 4323-8 #### ORTIZ GRAF ([id number]) [facility] ([facility]) [address] [place] [address] 30720 ALT With P-5'-P [Catalytic activity/Vol] 22 U/L Normal 10-52 [facility] Comment on above: Result Comment: Jessica ents treated with Sulfasalazine may generate falsely decreased results for ALT. Performed By: #### 2 4323-8 #### ORTIZ GRAF (64088) [facility] ([facility]) [facility] [place] [address] Anion gap [Moles/Vol] 10 mmol/L Normal 10-20 [facility] Comment on above: Performed By: #### 2 4323-8 #### ORTIZ GRAF (63486) [facility] ([facility]) [address] [place] [address] 55236 AST With P-5'-P [Catalytic activity/Vol] 21 U/L Normal 9-39 [facility] Comment on above: Performed By: #### 2 4323-8 #### ORTIZ GRAF (90623) [facility] ([facility]) [address] [place] [address] Bilirubin [Mass/Vol] 0.9 mg/dL Normal 0.0-1.2 [facility] Comment on above: Performed By: #### 2 4323-8 #### ORTIZ GRAF (49611) [facility] ([facility]) [address] [place] [address] 07217 Calcium [Mass/Vol] 8.8 mg/dL Normal 8.6-10.3 [facility] Comment on above: Performed By: #### 2 4323-8 #### ORTIZ GRAF (32461) [facility] ([facility]) [address] [place] [address] 81329 Chloride [Moles/Vol] 106 mmol/L Normal 98-107 [facility] Comment on above: Performed By: #### 2 4323-8 #### ORTIZ GRAF (88402) [facility] ([facility]) [address] [place] [address] CO2 [Moles/Vol] 31 mmol/L Normal 21-32 [facility] Comment on above: Performed By: #### 2 4323-8 #### ORTIZ GRAF (61606) [facility] ([facility]) [address] [place] [address] 70152 Creatinine [Mass/Vol] 1.21 mg/dL Normal 0.50-1.30 [facility] Comment on above: Performed By: #### 2 4323-8 #### ORTIZ GRAF (25846) [facility] ([facility]) [address] [place] [address] 37792 Glomerular filtration rate/1.73 sq M.predicted 62 mL/min/1.73m*2 Normal >60 [facility] Comment on above: Result Comment: Calc ulations of estimated GFR are performed using the 2020 CKD-EPI Study Refit equation without the race variable for the IDMS-Traceable creatinine methods. https://jasn.asnjournals.org/content//ASN.65209 35128 Performed By: #### 2 4323-8 #### ORTIZ GRAF ([id number]) [facility] ([facility]) [facility] [place] [address] Glucose [Mass/Vol] 100 mg/dL High 74-99 [facility] Comment on above: Performed By: #### 2 4323-8 #### ORTIZ GRAF (21153) [facility] ([facility]) [address] [place] [address] 81385 Potassium [Moles/Vol] 4.6 mmol/L Normal 3.5-5.3 [facility] Comment on above: Performed By: #### 2 4323-8 #### ORTIZ GRAF (46015) [facility] ([facility]) [address] [place] [address] 38211 Protein [Mass/Vol] 6.9 g/dL Normal 6.4-8.2 [facility] Comment on above: Performed By: #### 2 4323-8 #### ORTIZ GRAF (63558) [facility] ([facility]) [address] [place] [address] 87406 Sodium [Moles/Vol] 142 mmol/L Normal 136-145 [facility] Comment on above: Performed By: #### 2 4323-8 #### ORTIZ GRAF (72058) [facility] ([facility]) [address] [place] [address] 76759 Urea nitrogen [Mass/Vol] 21 mg/dL Normal 6-23 [facility] Comment on above: Performed By: #### 2 4323-8 #### ORTIZ GRAF (67394) [facility] ([facility]) [address] [place] [address] 83144 Glucose Glucometer (BldC) [M ass/Vol]Ordered By: Dustin Mosqueda on 03-18-2023 Glucose [Mass/Vol] 129 mg/dL 74-106 [facility] Comment on above: MANAGEMENT OF PATIEN T CARE PER NURSING PROTOCOL Absolute lymphocyte countOrd ered By: Dustin Mosqueda on 03-17-2023 Lymphocytes Auto (Unsp spec) [#/Vol] 1.49 10*3/uL 0.83-4.51 [facility] Basophil percentageOrdered B y: Dustin Mosqueda on 03-17-2023 Basophils/100 WBC (Bld) 0.2 % 0-1 [facility] Chloride [Moles/Vol] 103 mmol/L 98-107 [facility] Eosinophils/100 WBC (Bld) 2.0 % 0-5 [facility] Glucose [Mass/Vol] 107 mg/dL 74-106 [facility] Comment on above: Fasting Glucose resu lt from 100 to 125 mg/dL suggests IMPAIRED HOMEOSTASIS per A.D.A. criteria. Neutrophils (Bld) [#/Vol] 4.2 10*3/uL 2.0-7.7 [facility] Neutrophils/100 WBC (Bld) 64.4 % 47-70 [facility] Potassium [Moles/Vol] 4.2 mmol/L 3.5-5.1 [facility] Sodium [Moles/Vol] 138 mmol/L 136-145 [facility] WBC (Bld) [#/Vol] 6.5 10*3/uL 4.4-11.0 [facility] Blood erythrocytes count (nu mber/volume)Ordered By: Dustin Mosqueda on 03-17-2023 RBC (Bld) [#/Vol] 4.58 10*6/uL 4.6-6.2 [facility] Blood hemoglobin measurement (mass/volume)Ordered By: Dustin Mosqueda on 03-17-2023 Hemoglobin (Bld) [Mass/Vol] 13.6 g/dL 13.0-16.5 [facility] Blood lymphocytes/100 leukoc ytesOrdered By: Dustin Mosqueda on 03-17-2023 Lymphocytes/100 WBC (Bld) 22.8 % 19-41 [facility] Blood monocytes/100 leukocyt esOrdered By: Dustin Mosqueda on 03-17-2023 Monocytes/100 WBC (Bld) 10.0 % 0-10 [facility] Blood platelet mean volumeOr dered By: Dustin Mosqueda on 03-17-2023 Platelet mean volume (Bld) [Entitic vol] 9.0 fL 6.2-12.0 [facility] Determination of erythrocyte mean corpuscular volume (MCV)Ordered By: Dustin Mosqueda on 03-17-2023 MCV (RBC) [Entitic vol] 91.7 fL 80-94 [facility] Hematocrit Auto (Bld) [Volum e fraction]Ordered By: Dustin Mosqueda on 03-17-2023 Hematocrit (Bld) [Volume fraction] 42.0 % 40-54 [facility] INR in Blood by Coagulation assayOrdered By: Dustin Mosqueda on 03-17-2023 INR Coag (Bld) [Relative time] 1.0 {INR} [facility] Laboratory - Chemistry and C hemistry - challengeOrdered By: Dustin Mosqueda on 03-17-2023 CO2 [Moles/Vol] 31.0 mmol/L 21.0-32.0 [facility] Urea nitrogen/Creatinine [Mass ratio] 20.3 mg/mg 10-20 [facility] - Chemistry and C hemistry - challengeOrdered By: Wilberto Glover on 03-17-2023 Magnesium [Mass/Vol] 2.5 mg/dL 1.6-2.6 [facility] - CoagulationOrde red By: Dustin Mosqueda on 03-17-2023 aPTT Coag (Bld) [Time] 33.9 s 24.1-36.2 [facility] PT Coag (PPP) [Time] 13.6 s 11.7-14.9 [facility] - Hematology and Cell countsOrdered By: Dustin Mosqueda on 03-17-2023 Erythrocyte distribution width (RBC) [Entitic vol] 40.9 fL 35.1-43.9 [facility] Erythrocyte distribution width (RBC) [Ratio] 12.4 % 11.6-14.6 [facility] Immature granulocytes/100 WBC (Bld) 0.600 % 0.0-0.9 [facility] Comment on above: IG% - Immature Granu locytes (promyelocytes, myelocytes and metamyelocytes) > 1% indicates that a LEFT SHIFT is Present. MCH (RBC) [Entitic mass] 29.7 pg 27.0-32.0 [facility] Nucleated RBC/100 WBC (Bld) [Ratio] 0 % 0-5 [facility] MCHC Auto (RBC) [Mass/Vol]Or dered By: Dustin Mosqueda on 03-17-2023 MCHC (RBC) [Mass/Vol] 32.4 g/dL 32-36 [facility] No Panel InformationOrdered By: Dustin Mosqueda on 03-17-2023 Estimated GFR (MDRD) Amer 77 mL/min >60 [facility] Comment on above: GFR Calc Estimated GFR (MDRD) Non-Af Amer 64 mL/min >60 [facility] Comment on above: Non- GFR Calc Fructosamine 205 umol/L 0-285 [facility] Comment on above: Published reference interval for apparently healthysubjects between age 20 and 60 is 205 - 285 umol/L and in apoorly controlled diabetic population is 228 - 563 umol/Lwith a mean of 396 umol/L.Performed at: [facility] Director: Jason Barrera PhD, Phone: [phone] Platelets bldOrdered By: Willian Mosqueda on 03-17-2023 Platelets (Bld) [#/Vol] 241 10*3/uL 150-450 [facility] Serum or plasma calcium broderick urement (mass/volume)Ordered By: Dustin Mosqueda on 03-17-2023 Calcium [Mass/Vol] 9.0 mg/dL 8.5-10.1 [facility] Serum or plasma creatinine m easurement (mass/volume)Ordered By: Dustin Mosqueda on 03-17-2023 Creatinine [Mass/Vol] 1.18 mg/dL 0.70-1.30 [facility] Comment on above: The validity of the calculated GFR & GFRAA in patients over 70 years has not been determined. Clinical correlation is essential. Serum or plasma urea nitroge n measurement (mass/volume)Ordered By: Dustin Mosqueda on 03-17-2023 Urea nitrogen [Mass/Vol] 24 mg/dL - [facility] Thin prep Papanicolaou smear with manual screeningOrdered By: Dustin Mosqueda on 03-17-2023 Thin prep Papanicolaou smear with manual screening 4 5-15 [facility] Whole blood hemoglobin A1c/t otal hemoglobin ratio (mass fraction)Ordered By: Dustin Mosqueda on 03-17-2023 HbA1c (Bld) [Mass fraction] 5.6 % 3.8-5.6 [facility] Comment on above: Normal < 5.7 % Predi abetic 5.7 - 6.4 % Diabetic >or= 6.5 % Please note range changes. Absolute lymphocyte countOrd ered By: Dr. Garcia on 12-13-2022 Lymphocytes Auto (Unsp spec) [#/Vol] 1.83 10*3/uL 0.83-4.51 [facility] Basophil percentageOrdered B y: Dr. Garcia on 12-13-2022 Basophils/100 WBC (Bld) 0.3 % 0-1 [facility] Chloride [Moles/Vol] 106 mmol/L 98-107 [facility] Eosinophils/100 WBC (Bld) 1.0 % 0-5 [facility] Glucose [Mass/Vol] 91 mg/dL 74-106 [facility] Neutrophils (Bld) [#/Vol] 3.6 10*3/uL 2.0-7.7 [facility] Neutrophils/100 WBC (Bld) 58.6 % 47-70 [facility] Potassium [Moles/Vol] 4.3 mmol/L 3.5-5.1 [facility] Sodium [Moles/Vol] 140 mmol/L 136-145 [facility] WBC (Bld) [#/Vol] 6.1 10*3/uL 4.4-11.0 [facility] Blood erythrocytes count (nu mber/volume)Ordered By: Dr. Garcia on 12-13-2022 RBC (Bld) [#/Vol] 4.87 10*6/uL 4.6-6.2 [facility] Blood hemoglobin measurement (mass/volume)Ordered By: Dr. Garcia on 12-13-2022 Hemoglobin (Bld) [Mass/Vol] 14.2 g/dL 13.0-16.5 [facility] Blood lymphocytes/100 leukoc ytesOrdered By: Dr. Garcia on 12-13-2022 Lymphocytes/100 WBC (Bld) 30.2 % 19-41 [facility] Blood monocytes/100 leukocyt esOrdered By: Dr. Garcia on 12-13-2022 Monocytes/100 WBC (Bld) 9.6 % 0-10 [facility] Blood platelet mean volumeOr dered By: Dr. Garcia on 12-13-2022 Platelet mean volume (Bld) [Entitic vol] 9.6 fL 6.2-12.0 [facility] Determination of erythrocyte mean corpuscular volume (MCV)Ordered By: Dr. Garcia on 12-13-2022 MCV (RBC) [Entitic vol] 90.8 fL 80-94 [facility] Hematocrit Auto (Bld) [Volum e fraction]Ordered By: Dr. Garcia on 12-13-2022 Hematocrit (Bld) [Volume fraction] 44.2 % 40-54 [facility] INR in Blood by Coagulation assayOrdered By: Dr. Garcia on 12-13-2022 INR Coag (Bld) [Relative time] 1.0 {INR} [facility] Laboratory - Chemistry and C hemistry - challengeOrdered By: Dr. Garcia on 12-13-2022 CO2 [Moles/Vol] 28.0 mmol/L 21.0-32.0 [facility] Urea nitrogen/Creatinine [Mass ratio] 17.8 mg/mg 10-20 [facility] Laboratory - CoagulationOrde red By: Dr. Garcia on 12-13-2022 aPTT Coag (Bld) [Time] 31.3 s 24.1-36.2 [facility] PT Coag (PPP) [Time] 13.3 s 11.7-14.9 [facility] Laboratory - Hematology and Cell countsOrdered By: Dr. Garcia on 12-13-2022 Erythrocyte distribution width (RBC) [Entitic vol] 39.6 fL 35.1-43.9 [facility] Erythrocyte distribution width (RBC) [Ratio] 11.9 % 11.6-14.6 [facility] Immature granulocytes/100 WBC (Bld) 0.300 % 0.0-0.9 [facility] Comment on above: IG% - Immature Granu locytes (promyelocytes, myelocytes and metamyelocytes) > 1% indicates that a LEFT SHIFT is Present. MCH (RBC) [Entitic mass] 29.2 pg 27.0-32.0 [facility] Nucleated RBC/100 WBC (Bld) [Ratio] 0 % 0-5 [facility] [Mass/Vol]Or dered By: Dr. Garcia on 12-13-2022 MCHC (RBC) [Mass/Vol] 32.1 g/dL 32-36 [facility] No Panel InformationOrdered By: Dr. Garcia on 12-13-2022 Estimated GFR (MDRD) Amer 70 mL/min >60 [facility] Comment on above: GFR Calc Estimated GFR (MDRD) Non-Af Amer 58 mL/min >60 [facility] Comment on above: Non- GFR Calc Platelets bldOrdered By: Dr. Garcia on 12-13-2022 Platelets (Bld) [#/Vol] 171 10*3/uL 150-450 [facility] Serum or plasma calcium broderick urement (mass/volume)Ordered By: Dr. Garcia on 12-13-2022 Calcium [Mass/Vol] 8.8 mg/dL 8.5-10.1 [facility] Serum or plasma creatinine m easurement (mass/volume)Ordered By: Dr. Garcia on 12-13-2022 Creatinine [Mass/Vol] 1.29 mg/dL 0.70-1.30 [facility] Comment on above: The validity of the calculated GFR & GFRAA in patients over 70 years has not been determined. Clinical correlation is essential. Serum or plasma urea nitroge n measurement (mass/volume)Ordered By: Dr. Garcia on 12-13-2022 Urea nitrogen [Mass/Vol] 23 mg/dL 7-18 [facility] Thin prep Papanicolaou smear with manual screeningOrdered By: Dr. Garcia on 12-13-2022 Thin prep Papanicolaou smear with manual screening 6 5-15 [facility] Medicare Annual Wellness Vis iton 08-28-2022 Medicare Annual Wellness Visit *Chief Complaint 6 MO F/U REV LABS History of Present Illness The patient is being seen for the subsequent annual wellness visit. Past Medical, Surgical and Family History: reviewed and updated in chart. Medications and Supplements: Review of all medications by a prescribing practitioner or clinical pharmacist (such as prescriptions, OTCs, herbal therapies and supplements) documented in the medical record. No, the patient is not using opioids. Patient Self Assessment of Health Status: good. Tobacco use: Non-User Alcohol use: Non-User Illicit drug use: Non-User Current diet: well balanced diet. Exercise Frequency: infrequently. Depression/Suicide Screening: . During the past 2 weeks, the patient has not felt down, depressed or hopeless. During the past 2 weeks, the patient has not felt little interest or pleasure in doing things. Hearing Impairment: none. Cognitive Impairment: No cognitive impairment observed. Bathing: performs independently. Dressing: performs independently. Walking: performs independently. Managing Finances: performs independently. Shopping: performs independently. Managing Medications: performs independently. Housework / Basic Home Maintenance: performs independently. Falls Risk Screening:. ASHLEY has not fallen in the last 6 months. Home safety risk factors: none. Advance directives:. Advanced Care Planning discussed and documented advance care plan or surrogate decision maker documented in the medical record. Patient has living will. Patient has healthcare POA. Patient's End of Life Decisions: End of life decisions were reviewed with the patient. I agree to follow the patient's decisions. No headache, chest pain, shortness of breath, dizziness, lightheadedness, or edema Taking PPI daily without breakthrough symptoms. Reviewed dietary, caffeine, tobacco, alcohol, and NSAID use. No dyspepsia, dysphagia, reflux, melena, or abdominal pain. N/T in feet doing OK, using B12 suppliments Rhinitis doing OK seen cardiology in February last using compression socks has some dreams at night some forgetfulness, some more emotional at times/easily agitated at times Review of Systems Constitutional: NAD, no fevers, chills, sweats or fatigue Rep: no cough or shortness of breath Cardio: no chest pain, edema, or palpitations GI: no nausea, vomiting, diarrhea, constipation, or heartburn : normal urine flow and stream, no nocturia or dysuria MS: no joint pain or significant limits of function Skin: no visible rashes or suspicious lesions Neuro: alert and oriented X4, no numbness, tingling or issues with balance Psych: no anxiety or depression *Active Problems BPH (benign prostatic hyperplasia) (600.00) (N40.0) CAD (coronary artery disease) (414.00) (I25.10) Chronic idiopathic constipation (564.00) (K59.04) Colon cancer screening (V76.51) (Z12.11) 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) GERD (gastroesophageal reflux disease) (530.81) (K21.9) History of depression (V11.8) (Z86.59) Hyperlipidemia (272.4) (E78.5) Hypertension (401.9) (I10) Insomnia (780.52) (G47.00) Medicare annual wellness visit, subsequent (V70.0) (Z00.00) Nasal congestion (478.19) (R09.81) Obstructive sleep apnea syndrome (327.23) (G47.33) Peripheral neuropathy (356.9) (G62.9) Renal insufficiency (593.9) (N28.9) Screening for prostate cancer (V76.44) (Z12.5) Past Medical History BPH (benign prostatic hyperplasia) (600.00) (N40.0) CAD (coronary artery disease) (414.00) (I25.10) History of Carpal tunnel syndrome of right wrist (354.0) (G56.01) Resolved Date: 26 Feb 2022 Chronic idiopathic constipation (564.00) (K59.04) 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 Duffy History of Colonoscopy History of Coronary artery bypass graft Family History Family history of diabetes mellitus (V18.0) (Z83.3) No pertinent family history Family history of diabetes mellitus (V18.0) (Z83.3) Social History Denies alcohol consumption (V49.89) (Z78.9) Non-smoker (V49.89) (Z78.9) Patient has living will (V49.89) (Z78.9) *Allergies Penicillins Recorded By: Jessy Queen; 04/14/2019 9:07:27 AM Additional reactions - Weakness *Current Meds Medication NameInstruction Acetaminophen 500 MG Oral TabletTAKE 1 TABLET EVERY 4 TO 6 HOURS NEEDED (more content not included)... Normal [facility] Tobacco Screening.on 023 Adult depression screening assessment No [employer] [facility] Work Phone: Fall risk assessment a) No falls within the last year [employer] [facility] Work Phone: Tobacco use status CPHS b) No [employer] [facility] Work Phone: Office Visit (Primary Care T xt/Forms)on 02-26-2022 Follow-up visit Diagnoses/Problems Assessed GERD (gastroesophageal reflux disease) (530.81) (K21.9) Hypertension (401.9) (I10) Hyperlipidemia (272.4) (E78.5) Peripheral neuropathy (356.9) (G62.9) Screening for prostate cancer (V76.44) (Z12.5) CAD (coronary artery disease) (414.00) (I25.10) BPH (benign prostatic hyperplasia) (600.00) (N40.0) Nasal congestion (478.19) (R09.81) Orders CAD (coronary artery disease), Hyperlipidemia, Hypertension Comprehensive Metabolic Panel; Status:Active; Requested for:[id number]; LDL, Direct, Serum; Status:Active; Requested for:[id number]; Nasal congestion Start: Ipratropium [place] 0.03 % Nasal Solution; USE 2 SPRAYS IN EACH NOSTRIL 3 TIMES DAILY Screening for prostate cancer Prostate Spec.Ag, Screen; Status:Active; Requested for:[id number]; Patient Discussion/Summary Follow-up in 6 months with blood testing prior for hypertension and lipids, start Atrovent nose spray for congestion, if your breathing gets worse, call your stone cleaner. Provider Impressions Provider Impressions Free Text Note Form: Patient arrives to the office today 6-month follow-up for chronic medical problems. Complaining of phlegm congestion having a cough in the morning, is no longer taking his fluticasone or loratadine, will try Atrovent nose spray instead, patient did have an abnormal stress test this past spring, is having trouble with shortness of breath and chest heaviness with exertion, was advised to follow-up with his stone cleaner regarding this. Patient also complaining of numbness and tingling in his feet, vitamin B12 and CBC are all normal, patient is getting some relief taking [id number] supplementation that includes B12 and melatonin at night, will continue with his duloxetine at 30 mg a day, claims that emotionally he is doing okay, is concerned about agitation at times. Blood pressure is doing well, lipid profile is normal, status post TURP in June seems to be doing well from this, follow-up in 6 months with blood test. Chief Complaint 6 MO F/U HTN HL LABS History of Present Illness No headache, chest pain, shortness of breath, dizziness, lightheadedness, or edema Had abnormal stress testing done this past winter, seen cardiology and had carotid US done, elected medical management Had TURP with Gaurav this past June and had F/U, urinating well Taking PPI daily without breakthrough symptoms. Reviewed dietary, caffeine, tobacco, alcohol, and NSAID use. No dyspepsia, dysphagia, reflux, melena, or abdominal pain. Having some gas and bloating at times no change in exercise tolerance having RN/congestion, not using medicine any more neuropathy some better gets tired easily Review of Systems Constitutional: NAD, no fevers, chills, sweats or fatigue Rep: no cough or shortness of breath Cardio: no chest pain, edema, or palpitations GI: no nausea, vomiting, diarrhea, constipation, or heartburn : normal urine flow and stream, no nocturia or dysuria MS: no joint pain or significant limits of function Skin: no visible rashes or suspicious lesions Neuro: alert and oriented X4, no numbness, tingling or issues with balance Psych: no anxiety or depression Active Problems Problems BPH (benign prostatic hyperplasia) (600.00) (N40.0) CAD (coronary artery disease) (414.00) (I25.10) Carpal tunnel syndrome of right wrist (354.0) (G56.01) Chronic idiopathic constipation (564.00) (K59.04) Colon cancer screening (V76.51) (Z12.11) Depression (311) (F32.A) 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) GERD (gastroesophageal reflux disease) (530.81) (K21.9) Hematospermia (608.82) (R36.1) Hyperlipidemia (272.4) (E78.5) Hypertension (401.9) (I10) Insomnia (780.52) (G47.00) Medicare annual wellness visit, subsequent (V70.0) (Z00.00) Nasal congestion (478.19) (R09.81) Obstructive sleep apnea syndrome (327.23) (G47.33) Peripheral neuropathy (356.9) (G62.9) Renal insufficiency (593.9) (N28.9) RLL pneumonia (486) (J18.9) Screening for prostate cancer (V76.44) (Z12.5) Past Medical History Problems BPH (benign prostatic hyperplasia) (600.00) (N40.0) CAD (coronary artery disease) (414.00) (I25.10) Chronic idiopathic constipation (564.00) (K59.04) Depression (311) (F32.A) 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) GERD (gastroesophageal reflux disease) (530.81) (K21.9) Hyperlipidemia (272.4) (E78.5) Hypertension (401.9) (I10) Insomnia (780.52) (G47.00) Obstructive sleep apnea syndrome (327.23) (G47.33) Peripheral neuropathy (356.9) (G62.9) Renal insufficiency (593.9) (N28.9) Surgical History Problems History of Carpal tunnel surgery History of Cholecystectomy laparoscopic History of Colonoscopy History of Coronary artery bypass graft Family History Mother Family history of diabetes mellitus (V18.0) (Z83.3) Father No pertinent family history Sister Family history of diabetes mellitus (V18.0) (Z83.3) (more content not included)... Normal [employer] Tobacco Screening.on 022 Adult depression screening assessment No [email or web address] [facility] Work Phone: Fall risk assessment a) No falls within the last year [employer] [facility] Work Phone: Tobacco use status CPHS b) No [email or web address] [facility] Work Phone: US DOPPLER CAROTIDon 022 US DOPPLER CAROTID Patient Info Name: ASHLEY WEINSTEIN Age: 76 years : 1945 Gender: Male Exam Date: 12/10/2021 9:33 AM Patient Status: Outpatient Floral Department Specialist: Cynthia Amaya, BS, RDMS (AB), RVT Referring Physician: FELECIA HAMILTON ; Indications I65.23 - Occlusion and stenosis of bilateral carotid arteries Procedure Description [id number] Duplex examination using B-mode, color and spectral Doppler of extracranial arteries; complete bilateral study. NASCET criteria is used when performing imaging correlation with carotid duplex interpretation. Conclusions * Right. * Less than 50% stenosis in the right internal carotid artery. * Right vertebral artery is patent with antegrade flow. * No evidence of stenosis in the right common carotid, external carotid and subclavian arteries. * Left. * The site of the previous endarterectomy is patent with mild restenosis. * Left vertebral artery is patent with antegrade flow. * No evidence of stenosis in the left common carotid, external carotid and subclavian arteries. Recommendations * Based upon this study, Advanced Carotid Imaging does not appear to be warranted. Clinical correlation advised. Measurements Name Value Right PSV Right Prox CCA PSV 61 cm/s Right Mid CCA PSV 74 cm/s Right Distal CCA PSV 68 cm/s Right Prox ICA PSV 130 cm/s Right Mid ICA PSV 93 cm/s Right Distal ICA PSV 64 cm/s Right ECA PSV 122 cm/s Right Vert PSV 61 cm/s BC PSV 69 cm/s Right Prox SCA PSV 154 cm/s Rt ICA/CCA Ratio 1.9 Measurements Name Value Right EDV Right Prox CCA EDV 12 cm/s Right Mid CCA EDV 12 cm/s Right Distal CCA EDV 14 cm/s Right Prox ICA EDV 28 cm/s Right Mid ICA EDV 22 cm/s Right Distal ICA EDV 17 cm/s Right ECA EDV 13 cm/s Right Vert EDV 10 cm/s BC EDV 0 cm/s Right Prox SCA EDV 0 cm/s Measurements Name Value Left PSV Left Prox CCA PSV 92 cm/s Left Mid CCA PSV 78 cm/s Left Distal CCA PSV 79 cm/s Left Prox ICA PSV 57 cm/s Left Mid ICA PSV 69 cm/s Left Distal ICA PSV 58 cm/s Left ECA PSV 123 cm/s Left Vert PSV 48 cm/s Left Prox SCA PSV 155 cm/s Lt ICA/CCA Ratio 0.7 Measurements Name Value Left EDV Left Prox CCA EDV 17 cm/s Left Mid CCA EDV 16 cm/s Left Distal CCA EDV 15 cm/s Left Prox ICA EDV 16 cm/s Left Mid ICA EDV 19 cm/s Left Distal ICA EDV 15 cm/s Left ECA EDV 0 cm/s Left Vert EDV 7 cm/s Left Prox SCA EDV 0 cm/s Right Findings * No plaque noted in the right common carotid artery. * Calcific plaque noted in the right internal carotid artery. * No plaque noted in the right external carotid artery. Left Findings * No plaque noted in the left common carotid artery. * Calcific plaque noted in the left internal carotid artery. * No plaque noted in the left external carotid artery. Risk Factors Patient has a history of hypertension and CAD. . Report Signatures Finalized by ELIAZAR Heaton DO on 12/10/2021 10:34 AM [facility] US DOPPLER CAROTID Patient Info Name: ASHLEY WEINSTEIN Age: 76 years : 1945 Gender: Male Exam Date: 12/10/2021 9:33 AM Patient Status: Outpatient Floral Department Specialist: Cynthia Amaya, CHRISTOPHE, RDMS (AB), RVT Referring Physician: FELECIA HAMILTON ; Indications I65.23 - Occlusion and stenosis of bilateral carotid arteries Procedure Description [id number] Duplex examination using B-mode, color and spectral Doppler of extracranial arteries; complete bilateral study. NASCET criteria is used when performing imaging correlation with carotid duplex interpretation. Conclusions * Right. * Less than 50% stenosis in the right internal carotid artery. * Right vertebral artery is patent with antegrade flow. * No evidence of stenosis in the right common carotid, external carotid and subclavian arteries. * Left. * The site of the previous endarterectomy is patent with mild restenosis. * Left vertebral artery is patent with antegrade flow. * No evidence of stenosis in the left common carotid, external carotid and subclavian arteries. Recommendations * Based upon this study, Advanced Carotid Imaging does not appear to be warranted. Clinical correlation advised. Measurements Name Value Right PSV Right Prox CCA PSV 61 cm/s Right Mid CCA PSV 74 cm/s Right Distal CCA PSV 68 cm/s Right Prox ICA PSV 130 cm/s Right Mid ICA PSV 93 cm/s Right Distal ICA PSV 64 cm/s Right ECA PSV 122 cm/s Right Vert PSV 61 cm/s BC PSV 69 cm/s Right Prox SCA PSV 154 cm/s Rt ICA/CCA Ratio 1.9 Measurements Name Value Right EDV Right Prox CCA EDV 12 cm/s Right Mid CCA EDV 12 cm/s Right Distal CCA EDV 14 cm/s Right Prox ICA EDV 28 cm/s Right Mid ICA EDV 22 cm/s Right Distal ICA EDV 17 cm/s Right ECA EDV 13 cm/s Right Vert EDV 10 cm/s BC EDV 0 cm/s Right Prox SCA EDV 0 cm/s Measurements Name Value Left PSV Left Prox CCA PSV 92 cm/s Left Mid CCA PSV 78 cm/s Left Distal CCA PSV 79 cm/s Left Prox ICA PSV 57 cm/s Left Mid ICA PSV 69 cm/s Left Distal ICA PSV 58 cm/s Left ECA PSV 123 cm/s Left Vert PSV 48 cm/s Left Prox SCA PSV 155 cm/s Lt ICA/CCA Ratio 0.7 Measurements Name Value Left EDV Left Prox CCA EDV 17 cm/s Left Mid CCA EDV 16 cm/s Left Distal CCA EDV 15 cm/s Left Prox ICA EDV 16 cm/s Left Mid ICA EDV 19 cm/s Left Distal ICA EDV 15 cm/s Left ECA EDV 0 cm/s Left Vert EDV 7 cm/s Left Prox SCA EDV 0 cm/s Right Findings * No plaque noted in the right common carotid artery. * Calcific plaque noted in the right internal carotid artery. * No plaque noted in the right external carotid artery. Left Findings * No plaque noted in the left common carotid artery. * Calcific plaque noted in the left internal carotid artery. * No plaque noted in the left external carotid artery. Risk Factors Patient has a history of hypertension and CAD. . Report Signatures Finalized by ELIAZAR Heaton DO on 12/10/2021 10:34 AM Dictated by: RIGO ANTONIO III on FriDec 10, 2021 10:35:00 AM EDT Transcribed by: RIGO ANTONIO III on FriDec 10, 2021 10:35:00 AM EDT Finalized by: RIGO ANTONIO III on FriDec 10, 2021 10:35:00 AM EDT Normal [facility] Ambulatory NM MYOCARDIAL PERFUSION MULT I SPECTon 10-08-2021 NM MYOCARDIAL PERFUSION MULTI SPECT Patient Info Name: ASHLEY WEINSTEIN Age: 76 years : 1945 Gender: Male Ht: 168 cm Wt: 92 kg BSA: 2.10 m2 HR: 66 bpm BP: 144 / 96 mmHg Heart Rhythm: Right Bundle Branch Block, Sinus Arrhythmia Exam Date: 10/08/2021 9:00 AM Patient Status: Outpatient Any Known Allergies: NKDA Manager Zone: Aspen Canchola, RT(N), TECHNICAL SPECIALIST CYTOGENETICS, LETI, Wilberto Canchola RT(N), NCT Exam Type: NM MYOCARDIAL PERFUSION MULTI SPECT Study Info Indications - CAD monitoring, CABG > 5yrs or PCI > 2 yrs Nuclear Physician: Brittany Chino MD, ELIAZAR Referring Physician: DR. MALIK; [id number] Primary Nurse: Rodrigo Espinoza, RN, [place] Supervising Stress Physician: Brittany Chino MD, ELIAZAR BMI: 32.47 kg/m2 Summary 1. Abnormal stress nuclear perfusion study consistent with moderate size inferior infarct, mild inferolateral and apical ischemia. 2. Nondiagnostic ECG portion of stress nuclear perfusion study. Resting ST segment changes. Adequate workload achieved. Difficulty with gait due to neuropathy. No chest discomfort. Resting ventricular bigeminy.. Hypertensive response to exercise. 3. Rate related increase in QRS interval with right bundle branch block morphology . 4. Resting ventricular bigeminy. 5. Less than average exercise tolerance for age. 6. Septal hypokinesis with otherwise normal left ventricular systolic function. resting ejection fraction 58%. 7. Moderate size inferior infarct. Mild apical and inferolateral ischemia. Otherwise homogeneous perfusion. 8. Overall intermediate-risk study based on SCAI criteria (1-3% predicted annual cardiac mortality). History/Risk Factors Hypertension: Yes Dyslipidemia: Yes Family History: Coronary Artery Disease Prior Interventions CABG: Yes Date of CAB08/02/2009 Stress ECG Details Protocol: TONY Total METS: 4.6 Rest HR: 66 bpm Peak HR: 125 bpm Rest Sys BP: 144 mmHg Peak Sys BP: 214 mmHg Max Pred HR: 146 bpm % Max Pred HR: 86 % Target HR: 124 bpm Max RPP: 26,750 bpm*mmHg Target HR Summary: Patient's target heart rate was achieved BP Response: Patient exhibited a hypertensive response with stress Termination Reason: Fatigue Cardiac Symptoms: None Total Time: 3 min : 30 sec Rest Alfaro BP: 96 mmHg Peak Alfaro BP: 75 mmHg Resting ECG Right bundle branch block. Resting ST/T wave changes. Resting ventricular bigeminy. Stress ECG Non-diagnostic ECG response due to resting abnormalities. Arrhythmias Frequent PVCs. Stress Summary Rate related increase in QRS interval with right bundle branch block morphology . Nondiagnostic ECG portion of stress nuclear perfusion study. Resting ST segment changes. Adequate workload achieved. Difficulty with gait due to neuropathy. No chest discomfort. Resting ventricular bigeminy.. Hypertensive response to exercise. Less than average exercise tolerance for age. Radiopharmaceutical: Tc-99m Tetrofosmin Administration Site: IV - right antecubital Administered By: Aspen Canchola RT(N), GENARO, RCS Camera Used: [employer] D-SPECT Radiopharmaceutical: Tc-99m Tetrofosmin Administration Site: IV - right antecubital Administered By: Aspen Canchola RT(N), GENARO, RCS Camera Used: [employer] D-SPECT Image Protocol Protocol: Stress/Rest 1 Day Rest Radiopharmaceutical Dose: 21.5 mCi Imaging Date AND Time: 10/08/2021 10:45 AM Patient Position: supine Stress Radiopharmaceutical Dose: 7.5 mCi Imaging Date AND Time: 10/08/2021 10:00 AM Patient Position: upright and supine Injection to Imaging Time: 15 min Injection to Imaging Time: 30 min Total Radiation Dose: 7.4 mSv Injection Date AND Time: 10/08/2021 10:30 AM Injection Date AND Time: 10/08/2021 9:30 AM Procedure(s): Gated SPECT images acquired upright and supine post Tetrofosmin injection at peak stress. Gated SPECT images acquired supine post Tetrofosmin injection at rest. [facility] [employer]/Q[employer] application was utilized for processing and interpretation. SPECT Results Perfusion Findings Moderate size inferior infarct. Mild apical and inferolateral ischemia. Otherwise homogeneous perfusion. Summed Difference Score: 3 Summed Stress Score: 11 Summed Rest Score: 8 Perfusion Quantitative Results Stress Extent Global Stress Extent: 32 % Rest Extent Global Rest Extent: 12 % Ischemia Extent Global Ischemia Extent: 14 % Functional Results Name Value Normal Stress Stress LV Ejection Fraction 62 % 55-70 Stress LV End Diastolic Volume Index 67.00 ml/m2 Stress LV End Systolic Volume Index 30.80 ml/m2 Nuclear Stress Myocardial Mass 147.00 g Stress LV End Diastolic Volume 116.00 ml Stress LV End Systolic Volume 4 (more content not included)... Normal [facility] Comment on above: Order Comment: Injur y/Trauma or Illness?:Illness/Other How long have you had these symptoms (acute/chronic)?:Unknown Reason for exam?:cad Type of Exam?:Unknown Additional signs and symptoms?:cad HOLTER MONITOR- EXTENDED (3 TO 7 DAYS)on 10-07-2021 HOLTER MONITOR- EXTENDED (3 TO 7 DAYS) This is a summary report. The complete report is available in the patient's medical record. If you cannot access the medical record, please contact the sending organization for a detailed fax or copy. ?? HOLTER REPORT: 09/25/2021 TO 09/28/2021 ?? INDICATIONS CORONARY ATERY DISEASE Sinus rhythm with 7% PACs No atrial fibrillation No high degree AV block No significant bradycardia episodes Normal [facility] ECG 12 leadon 09-25-2021 Atrial Rate [facility] P Bennett [facility] P-R Interval [facility] Q-T Interval [facility] Q-T Interval (corrected) [facility] QRS Duration [facility] QTC Calculation (Bezet) [facility] R Bennett [facility] T Bennett [facility] Ventricular Rate [facility] Laboratory - Chemistry and C hemistry - challengeon 06-14-2021 Anion gap [Moles/Vol] 11 mmol/L 10 - 20 [facility] Work Phone: Calcium [Mass/Vol] 9.1 mg/dL 8.6 - 10.6 [facility] [facility] Work Phone: Chloride [Moles/Vol] 106 mmol/L 98 - 107 [employer] [facility] Work Phone: CO2 [Moles/Vol] 28 mmol/L 21 - 32 -[facility] Work Phone: Creatinine [Mass/Vol] 1.22 mg/dL See Below [facility] Medical [employer] [facility] Work Phone: Comment on above: Reference Range: 0.5 0 - 1.30 Glucose [Mass/Vol] 170 mg/dL above high threshold 74 - 99 [facility] Work Phone: Potassium [Moles/Vol] 4.4 mmol/L 3.5 - 5.3 [facility] Medical [facility] Work Phone: Sodium [Moles/Vol] 141 mmol/L 136 - 145 [employer] [facility] Work Phone: Urea nitrogen [Mass/Vol] 28 mg/dL above high threshold 6 - 23 [facility] Work Phone: No Panel Informationon 06-14 70 {mL/min/1.73m2} >60 [facility] Work Phone: Comment on above: CALCULATIONS OF DENISSE MATED GFR ARE PERFORMED USING THE MDRD STUDY EQUATION FOR THE IDMS-TRACEABLE CREATININE METHODS. CLIN CHEM 2007;53:766-72 58 {mL/min/1.73m2} Abnormal >60 [employer] [facility] Work Phone: Tobacco Screening.on 021 Fall risk assessment a) No falls within the last year [facility] Work Phone: Tobacco use status [facility] b) No -[facility] Work Phone: Fall risk assessment a) No falls within the last year [facility] Work Phone: Tobacco use status [facility] b) No [facility] Work Phone: BASIC METABOLIC PANELon 12- Anion gap [Moles/Vol] 10 mmol/L Normal 10 - 20 [facility] Comment on above: Performed By: #### B MP #### [address] [address] Calcium [Mass/Vol] 8.4 mg/dL Low 8.6 - 10.3 [facility] Comment on above: Performed By: #### B MP #### [address] [address] Chloride [Moles/Vol] 108 mmol/L High 98 - 107 [facility] Comment on above: Performed By: #### B MP #### [address] [address] Creatinine [Mass/Vol] 1.69 mg/dL High 0.50 - 1.30 [facility] Comment on above: Performed By: #### B MP #### [address] [address] GFR- AM. 48 mL/min/1.73m2 Abnormal >60 [facility] Comment on above: Result Comment: CALC ULATIONS OF ESTIMATED GFR ARE PERFORMED USING THE MDRD STUDY EQUATION FOR THE IDMS-TRACEABLE CREATININE METHODS. CLIN CHEM 2007;53:766-72 Performed By: #### B MP #### [address] [address] GFR-NON AM. 40 mL/min/1.73m2 Abnormal >60 [facility] Comment on above: Performed By: #### B MP #### [address] [address] Glucose [Mass/Vol] 93 mg/dL Normal 74 - 99 [facility] Comment on above: Performed By: #### B MP #### [address] [address] HCO3 (Bld) [Moles/Vol] 28 mmol/L Normal 21 - 32 [facility] Comment on above: Performed By: #### B MP #### [address] [address] Potassium [Moles/Vol] 4.3 mmol/L Normal 3.5 - 5.3 [facility] Comment on above: Performed By: #### B MP #### [address] [address] Sodium [Moles/Vol] 142 mmol/L Normal 136 - 145 [facility] Comment on above: Performed By: #### B MP #### [address] [address] Urea nitrogen [Mass/Vol] 24 mg/dL High 6 - 23 [facility] Comment on above: Performed By: #### B MP #### [address] [address] CBCon 06-05-2021 Erythrocyte distribution width (RBC) [Ratio] 13.8 % Normal 11.5 - 14.5 [facility] Comment on above: Performed By: #### C BC ####[address] [address] Hematocrit (Bld) [Volume fraction] 35.8 % Low 41.0 - 52.0 [facility] Comment on above: Performed By: #### C BC ####[address] [address] Hemoglobin (Bld) [Mass/Vol] 11.8 g/dL Low 13.5 - 17.5 [facility] Comment on above: Performed By: #### C BC ####[address] [address] MCHC (RBC) [Mass/Vol] 33.1 g/dL Normal 32.0 - 36.0 [facility] Comment on above: Performed By: #### C BC ####[address] [address] MCV (RBC) [Entitic vol] 88 fL Normal 80 - 100 [facility] Comment on above: Performed By: #### C BC ####[address] [address] Platelets (Bld) [#/Vol] 121 10*3/uL Low 150 - 450 [facility] Comment on above: Performed By: #### C BC ####[address] [address] RBC 4.05 x10E12/L Low 4.50 - 5.90 [facility] Comment on above: Performed By: #### C BC ####[address] [address] WBC (Bld) [#/Vol] 4.8 10*3/uL Normal 4.4 - 11.3 [facility] Comment on above: Performed By: #### C BC ####[address] [place] [address] Daily Progress Note-Surgeryo n 06-05-2021 Daily Progress Note-Surgery Consult Type: subsequent visit/care Service: Surgery Subjective Data: ASHLEY WEINSTEIN is a 76 year old Male who is Hospital Day # 2 with post-op urinary retention and BAO. Cr significantly improved. Santiago remains. Abdominal discomfort resolved. Drain remains serosanguinous. No fevers. No nausea. Had bowel movement. Objective Data: Objective Information: T PRBPSpO2 [id number]/6096% Date/Time06/05 8: 8: 8: 8: 8:10 Range(35.8C - 36.5C ) (64 - 80 ) (18 - 20 ) (121 - 159 )/ (51 - 68 ) (90% - 97% ) As of 05-Jun-2021 08:10:00, patient is on 2 L/min of oxygen via nasal cannula. Pain reported at 06/05 0:00: 0 = None ---- Intake and Output ----- [facility] Jun 05, 2021 6:00 [id number] Jun 04, 2021 10:00 [id number] Jun 04, 2021 2:00 [id number] The Intake and Output Totals for the last 24 hours are: [facility] [id number] Physical Exam by System: Constitutional: No acute distress, converses pleasantly Eyes: No scleral icterus Respiratory/Thorax: No labored breathing, on room air Cardiovascular: NSR Gastrointestinal: Soft, distended, non-tender, some serosanguinous drainage around JOSE ELIAS, holding suction with serosanguinous output (minimal) Genitourinary: santiago in place Extremities: No peripheral edema Neurological: Alert, oriented x3 Psychological: Normal affect Skin: No jaundice Recent Lab Results: Results: CBC: 06/05/2021 05:27 \ Hgb / \ 11.8 L / WBC Plt 4.8 121 L / Hct \ / 35.8 L \ RBC: 4.05 L MCV: 88 Neutrophil %: 76.9 BMP: 06/05/2021 05:27 NA+ Cl- BUN / 142 108 H 24 H / -------- Glucose --- 93 K+ HCO3- Creat \ 4.3 28 1.69 H \ Calcium : 8.4 L Anion Gap : 10 Assessment and Plan: Code Status: Code StatusFull Code Assessment: 76yo male s/p lap subtotal cholecystectomy, readmitted for urinary retention and BAO. Improved with santiago. Constipation improved with aggressive bowel regimen. If discharged home today, recommend ongoing daily stool softeners (colace twice daily, milk of mag as needed). Will need urology follow up. Will keep follow up with ma Jun 14, anticipate drain removal at that appointment. Electronic Signatures: Kathy Duffy) (Signed 05-Jun-2021 09:48) Authored: Service, Subjective Data, Objective Data, Assessment and Plan, Note Completion Last Updated: 05-Jun-2021 09:48 by Kathy Duffy) [facility] Discharge [id number] Discharge Profile2 Discharge Orders: Anticipated Discharge Date: Anticipated Discharge [id number] Anticipated Discharge Time11:42 DNAR: Code Status at Discharge: Full Code Activity: activity as tolerated. Catheter Care: Typeindwelling Catheter Caresoap and water Date Last Changedinserted on 06/04/2021 in the ED Additional Orders: Additional Instructions Monitor the color of your urine. If it changes to cloudy or you notice different consistency or spasms around the bladder notify your urologist or your primary care physician immediately. Notify doctor if you develop fever or chills temperature greater than 100.4. Your urinalysis on admission is clean without evidence of infection. You do not warrant antibiotics at time of discharge. You do need to follow with your urologist and continue your finasteride. Call Provider If (Homegoing Patients): Any new concerning symptoms. Heart Failure: Patient Instructions: - CALL 911 IF YOU HAVE ANY OF THE SIGNS AND SYMPTOMS OF HEART FAILURE: 1. Chest pain 2. Significant Shortness of breath 3. Fainting. - Notify your physician immediately if you have shortness of breath; weight gain of 3 lbs. or more; fatigue and loss of energy; swelling of lower extremities or abdomen; dizziness or fainting; change of appetite; and frequent coughing. - Patient received Living With Heart Failure book. - Daily weight on the same scale, same time after voiding and before eating. - Maintain daily weight log. Activity: - Balance activity with rest, gradually increase your activity as tolerated. - Exercise as prescribed by your physician. Stroke: Patient Instructions: - CALL 911 OR GO DIRECTLY TO THE EMERGENCY ROOM IF YOU HAVE ANY OF THE SIGNS AND SYMPTOMS OF STROKE: 1. Sudden weakness or numbness of the face, arm or leg, especially on one side of the body. 2. Sudden difficulty speaking or understanding. 3. Sudden trouble seeing in one or both eyes. 4. Sudden trouble walking, dizziness, loss of balance or coordination. 5. Sudden severe headache with no known cause. 6. Loss of consciousness or decreased consciousness, fainting, or seizures. - Know the Risk Factors for Stroke: high blood pressure, high cholesterol, diabetes, smoking, physical inactivity, overweight, previous stroke or TIA, heart disease, atrial fibrillation. - Always carry a medication list with you and take it to ALL Healthcare Provider visits. - You may be contacted by a Hospital Civil Defense Director after discharge to evaluate your progress at home and to discuss your experience at [facility]. Hospital Specific Instructions - [facility]: - For questions/problems/darci rns call the Discharge Physician at [phone] and have them paged. Hospital Course (Home Care/Gold Form): Hospital Course: Hospital Course: include significant abnormal lab values ASHLEY WEINSTEIN is a 76 year old male who presents to the emergency department with a chief complaint of abdominal pain. Patient states that he had a cholecystectomy on May [address] Avalos. He states that he began having abdominal discomfort approx. 4 days ago mostly around the drain site. He states two and half days ago he could not have any bowel movements and two days ago he has not urinated except for a very small amount of urine. he states the pain was so bad he could feel it in both sides of his kidneys. He came to the ED, they placed a Santiago catheter and he tells me he was told estimate 3 L of urine. He states that Dr. Duffy came in to the ED and told him everything looks good from his surgery. He states he hopes to be discharged in the am. I did explain that he has not had a bowel movement in 3 days and we would assist with medications to hopefully he can pass stool. Also told patient that nephrology would see him based upon the presentation of his BAO. He is okay with the plan. He denies any fever, chills, shortness of breath, chest pain. Hospital course: Santiago catheter was placed in the emergency department. His urine is clear there is some mild stranding of red flecks in the catheter tubing. He denies any pain. His creatinine improved from 6.48-1.69. He was evaluated by nephrology and from a renal standpoint patient is okay to be discharged to home. General surgery was consulted and he had severe constipation which was given a bowel regimen has had multiple bowel movements and feels better. Patient has an established plan of care post procedure and is known to his urologist Dr. Sarabia With [facility] in [place].Patient has had multiple procedures in the past requiring a Santiago catheter for a few week duration. Patient was offered to discontinue the Santiago catheter and to straight catheterize for bladder training and he refused. He states this is the way that it is always been done. He was educated on Santiago care declines catheter with soap and water stroking down (more content not included)... Normal [facility] Laboratory - Chemistry and C hemistry - challengeon 06-05-2021 Anion gap [Moles/Vol] 10 mmol/L 10 - 20 - [facility] Work Phone: Calcium [Mass/Vol] 8.4 mg/dL below low threshold 8.6 - 10.3 -[facility] Work Phone: Chloride [Moles/Vol] 108 mmol/L above high threshold 98 - 107 [facility] Work Phone: CO2 [Moles/Vol] 28 mmol/L 21 - [address] [facility] Work Phone: Creatinine [Mass/Vol] 1.69 mg/dL above high threshold See Below [facility] Work Phone: Comment on above: Reference Range: 0.5 0 - 1.30 Glucose [Mass/Vol] 93 mg/dL 74 - 99 [facility] Work Phone: Potassium [Moles/Vol] 4.3 mmol/L 3.5 - 5.3 [facility] Work Phone: Sodium [Moles/Vol] 142 mmol/L 136 - 145 [facility] Work Phone: Urea nitrogen [Mass/Vol] 24 mg/dL above high threshold 6 - 23 [facility] Work Phone: Laboratory - Hematology and Cell countson 06-05-2021 Erythrocyte distribution width (RBC) [Ratio] 13.8 % See Below [facility] Work Phone: Comment on above: Reference Range: 11. 5 - 14.5 Hematocrit (Bld) [Volume fraction] 35.8 % below low threshold See Below [facility] Work Phone: Comment on above: Reference Range: 41. 0 - 52.0 Hemoglobin (Bld) [Mass/Vol] 11.8 g/dL below low threshold See Below [facility] Work Phone: Comment on above: Reference Range: 13. 5 - 17.5 MCHC (RBC) [Mass/Vol] 33.1 g/dL See Below [facility] Work Phone: Comment on above: Reference Range: 32. 0 - 36.0 MCV (RBC) [Entitic vol] 88 fL 80 - 100 [facility] Work Phone: Platelets (Bld) [#/Vol] 121 10*3/uL below low threshold 150 - 450 [facility] Work Phone: RBC (Bld) [#/Vol] 4.05 {x10E12/L} below low threshold See Below [facility] Work Phone: Comment on above: Reference Range: 4.5 0 - 5.90 WBC (Bld) [#/Vol] 4.8 10*3/uL 4.4 - 11.3 [facility] Work Phone: MAGNESIUMon 06-05-2021 Magnesium [Mass/Vol] 2.12 mg/dL Normal 1.60 - 2.40 [facility] Comment on above: Performed By: #### M G ####[address] [place] [address] Magnesium, Serumon Magnesium [Mass/Vol] 2.12 mg/dL See Below [facility] Work Phone: Comment on above: Reference Range: 1.6 0 - 2.40 No Panel Informationon 06-05 48 {mL/min/1.73m2} Abnormal >60 [facility] Work Phone: Comment on above: CALCULATIONS OF DENISSE MATED GFR ARE PERFORMED USING THE MDRD STUDY EQUATION FOR THE IDMS-TRACEABLE CREATININE METHODS. CLIN CHEM 2007;53:766-72 40 {mL/min/1.73m2} Abnormal >60 [facility] Work Phone: Order Reconciliationon 06-05 Order Reconciliation Page 1 Discharge Reconciliation Document Reconciliation Type: Discharge requested on behalf of Aurelia Reynoso (Advanced Practice Nurse) done by Aurelia Reynoso (ACUTE CARE CERTIFIED NURSING ASSISTANT-PERIOPERATIVE NURSE) Discharge - Reconciliation: 05-Jun-2021 11:41 by: Aurelia Reynoso (ACUTE CARE CERTIFIED NURSING ASSISTANT-PERIOPERATIVE NURSE) Home Medications EnteredHOME MEDICATIONS AT DISCHARGE DateReconciliation Comment/ Additional Information amlodipine 10 mg tablet 1 tab(s) orally once a day 20-Mar-2021 05:24 amlodipine 10 mg tablet 1 tab(s) orally once a day 20-Mar-2021 05:24 amlodipine 10 mg tablet is continued as amlodipine 10 mg tablet Aspirin Enteric Coated 325 mg oral delayed release tablet 1 tab(s) orally once a day (at bedtime) 04-Jun-2021 14:28 Aspirin Enteric Coated 325 mg oral delayed release tablet 1 tab(s) orally once a day (at bedtime) 04-Jun-2021 14:28 Aspirin Enteric Coated 325 mg oral delayed release tablet is continued as Aspirin Enteric Coated 325 mg oral delayed release tablet atorvastatin 40 mg tablet 1 tab(s) orally once a day 20-Mar-2021 05:24 atorvastatin 40 mg tablet 1 tab(s) orally once a day 20-Mar-2021 05:24 atorvastatin 40 mg tablet is continued as atorvastatin 40 mg tablet Colace 100 mg oral capsule 3 cap(s) orally 2 times a day 04-Jun-2021 14:28 Colace 100 mg oral capsule 3 cap(s) orally 2 times a day 04-Jun-2021 14:28 Colace 100 mg oral capsule is continued as Colace 100 mg oral capsule duloxetine 30 mg capsule,delayed release 1 cap(s) orally 2 times a day 20-Mar-2021 05:25 duloxetine 30 mg capsule,delayed release 1 cap(s) orally 2 times a day 20-Mar-2021 05:25 duloxetine 30 mg capsule,delayed release is continued as duloxetine 30 mg capsule,delayed release finasteride 5 mg tablet 1 tab(s) orally once a day 20-Mar-2021 05:25 finasteride 5 mg tablet 1 tab(s) orally once a day 20-Mar-2021 05:25 finasteride 5 mg tablet is continued as finasteride 5 mg tablet fluticasone propionate 50 mcg/actuation nasal spray,suspension 2 spray(s) in each nostril once a day, As Needed 20-Mar-2021 05:26 fluticasone propionate 50 mcg/actuation nasal spray,suspension 2 spray(s) in each nostril once a day, As Needed 20-Mar-2021 05:26 fluticasone propionate 50 mcg/actuation nasal spray,suspension is continued as fluticasone propionate 50 mcg/actuation nasal spray,suspension Metoprolol Tartrate 25 mg oral tablet 1 tab(s) orally 2 times a day 04-Jun-2021 16:03 Metoprolol Tartrate 25 mg oral tablet 1 tab(s) orally 2 times a day 04-Jun-2021 16:03 Metoprolol Tartrate 25 mg oral tablet is continued as Metoprolol Tartrate 25 mg oral tablet oxycodone-acetaminophen 5 mg-325 mg oral tablet 1 tab(s) orally every 4 hours, As Needed for post-operative pain for 2 days. 31-May-2021 06:54 Discontinued; Discontinue from ORM oxycodone-acetaminophen 5 mg-325 mg oral tablet is not required tamsulosin 0.4 mg capsule 1 cap(s) orally once a day (at bedtime) 04-Jun-2021 14:27 tamsulosin 0.4 mg capsule 1 cap(s) orally once a day (at bedtime) 04-Jun-2021 14:27 tamsulosin 0.4 mg capsule is continued as tamsulosin 0.4 mg capsule Current OrdersDateHOME MEDICATIONS AT DISCHARGE DateReconciliation Comment/ Additional Information Acetaminophen Tablet (TYLENOL)DOSE = 650 mg Oral Every 4 Hours, PRN Pain - Mild (1-3) 04-Jun-2021 14:22 Acetaminophen is not required Acetaminophen Tablet (TYLENOL)DOSE = 650 mg Oral Every 4 Hours, PRN Temp Greater Than or Equal to 38.0 C 04-Jun-2021 14:22 Acetaminophen is not required amLODIPine (NORVASC) TabletDOSE = 10 mg Oral Daily 04-Jun-2021 15:01 amLODIPine (NORVASC) is not required Aspirin Enteric Coated Enteric Coated Tablet (ECOTRIN)DOSE = 325 mg Oral Every Night 04-Jun-2021 15:01 Aspirin Enteric Coated is not required Atorvastatin Tablet (LIPITOR)DOSE = 40 mg Oral Daily 04-Jun-2021 15:01 Atorvastatin is not required Docusate Capsule (COLACE)DOSE = 100 mg Oral 2 Times a Day 04-Jun-2021 18:41 Docusate is not required DULoxetine Delayed Release Capsule (CYMBALTA)DOSE = 30 mg Oral 2 Times a Day 04-Jun-2021 15:01 DULoxetine is not required Finasteride Tablet (PROSCAR)DOSE = 5 mg Oral DailyNotes from Pharmacy: Reproductive Risk- Single Nitrile Glove 04-Jun-2021 15:01 Finasteride is not required Fluticasone 50 microgram/ Nasal Inhalation (FLONASE)DOSE = 2 spray(s) Each Nostril Daily, PRN congestionNotes from Pharmacy: [facility] 04-Jun-2021 15:01 Fluticasone 50 microgram/ Nasal Inhalation is not required Heparin SubCutaneous DOSE = 5,000 unit(s) SubCutaneous Every 8 HoursNotes from Pharmacy: Note Concentration Prior to Administration 04-Jun-2021 14:22 Heparin SubCutaneous is not required Iohexol (Omnipaque 350-Radiology Contrast) (OMNIPAQUE)DOSE = 136.5 mL IntraVenous Push OnceCa.5 mL/Kg/DOSE x 91 Kg = 136.5 mL/Dose (Daily Total is 136.5 mL)LABS: Blood Urea Nitrogen, Serum,47,04-Jun-2021 11:50:33 Creatinine, Serum,6.48,06 04-Jun-2021 12:10 Iohexol (Omnipaque 350-Radiology Contrast) is not required Iohexol (Omnipaque 350-Radiology Contra (more content not included)... Normal [facility] PHOSPHORUSon 06-05-2021 Phosphate [Mass/Vol] 2.6 mg/dL Normal 2.5 - 4.9 [facility] Comment on above: Result Comment: The performance characteristics of phosphorus testing in heparinized plasma have been validated by the individual laboratory site where testing is performed. Testing on heparinized plasma is not approved by the FDA; however, such approval is not necessary. Performed By: #### [facility] ####[place] [address] Phosphorus, Serumon 06-05-20 21 Phosphate [Mass/Vol] 2.6 mg/dL 2.5 - 4.9 [facility] Work Phone: Comment on above: The performance nadia acteristics of phosphorus testing in heparinized plasma have been validated by the individual laboratory site where testing is performed. Testing on heparinized plasma is not approved by the FDA; however, such approval is not necessary. Admission Risk Screen - Adul ton 06-04-2021 Admission Risk Screen - Adult Allergies: Allergies: penicillin: Unknown Patient Verification: New W ID Band Applied in my Departmentno Type of ID Patient is WearingW wristband, but not applied here Patient Transferred from Other Facility ([facility], [facility],etc)no Patient Identity Verified Bypatient ID Band FULL Name, include Middle, spelling matches patient's ID used for verificationyes ID Band Matches Patient ID used for Verficationyes ID Band MRN Matches EMR MRNyes Visitor Restriction: Coronavirus Visitor Restriction: Reasonable restrictions to in-person visitors will be observed due to current coronavirus pandemic. Travel History: COVID-19 Screening Completedno exposure or symptoms(1) Travel or Exposure Past 30 DaysNO travel to International locations in the past 30 days Ebola AlertFor Ebola-like Symptoms: Isolate Patient and Notify Provider/Demurrage Man For Contact: Notify Provider/Demurrage Man Advance Directive: Advance Directive/DNRno (2) Advance Directive Information Givenpatient/family declined [place] Fall Screen: History of falling (immediate or previous)no (0) Secondary Diagnosisyes (15) Intravenous Therapy/ Heparin/Saline Lockyes (20) Gait/Transferringnormal/ bedrest/wheelchair (0) Ambulatory Aidsnone/bedrest/nurse assist (0) Mental Statusoriented to own ability (0) Score: Low risk (<25). Moderate risk (25-44). High risk (>44).35 [place] InterventionsMODERATE INTERVENTIONS: *Low Interventions Plus: * falls risk band/sticker applied to patient, *yellow non-skid footwear, *instruct to call for assistance before getting out of bed, *bed/chair/bedside commode/toilet alarms, *sensory devices/ambulatory aides available and in reach, *medications reviewed for potential side effects and care planning. Family Violence Screen: Are you or have you been threatened or abused physically, emotionally, or sexually by anyoneno Has anyone ever threatened to hurt your family or your petsno Does anyone try to keep you from having/contacting other friends or doing things outside your homeno Do you feel UNSAFE going back to the place where you are livingno Do you feel anyone has exploited or taken advantage of you financially or of your personal propertyno Clinical assessment: Are there any apparent signs of injuries/behaviors that could be related to abuse/neglectno Social Service Consult for abuse/neglect needed this visitno Functional Screen: Functional Screen: In the recent/past 2-4 weeks, patient or family have noticedno issues that require a speech/language consult at this time AM-PAC- Basic Mobility/Daily Activity: Patient baseline bedboundno Turning from your back to your side while in a flat bed without using bedrailsnone Moving from lying on your back to sitting on the side of a flat bed without using bedrailsnone Moving to and from bed to chair (including a wheelchair)none Standing up from a chair using your arms (e.g. wheelchair or bedside chair) none To walk in hospital roomnone Climbing 3-5 steps with railingnone Basic Mobility - Total Score24 Putting on and taking off regular lower body clothingnone Bathing (including washing, rinsing, drying)none Putting on and taking off regular upper body clothingnone Toileting, which includes using toilet, bedpan or urinalnone Taking care of personal grooming such as brushing teethnone Eating Mealsnone Daily Activity - Total Score24 Learning Assessment (Patient): Patient is Able to be Assessed for Learningyes Factors Influencing Readiness to Learnacuteness of illness Factors that Impact Ability to Learnnone Devices/Methods Used to Communicatenone Learning Preferencesverbal instruction Cultural Considerationsnone Developmental Considerationsnone Sikhism Considerationsreligious considerations Learning Assessment (Other Learner): Other learner availableno Depression Screen: During the past month, have you often been bothered by feeling down, depressed or hopelessno During the past month, have you often had little interest or pleasure in doing thingsno Have you had any thoughts of harming anyone elseno (1) [place] Suicide: Risk Screen Not Applicable/Able to Answerable to be screened In the Past Month: Have you wished you were or could go to sleep and not wake upno(1) In the Past Month: Have you had any actual thoughts of killing yourself no(1) Lifetime: Have you ever done, started to do, or prepared to do anything to end your lifeno [place] Suicide Risknegative Adult Nutrition Screen: Have you recently lost weight without tryingno Have you been eating poorly because of a decreased appetiteno Malnutrition Screening Tool Score0 Malnutrition Screening Tool RiskMST = 0 or 1 Not at risk. Eating well with little or no weight loss Nutrition Consult needed this visitno Can Patient Participate in Room Serviceyes Patient requir (more content not included)... Normal [facility] BASIC METABOLIC PANELon 12-0 Anion gap [Moles/Vol] 17 mmol/L Normal 10 - 20 [facility] Comment on above: Performed By: #### B MP #### [address] [address] Calcium [Mass/Vol] 8.6 mg/dL Normal 8.6 - 10.3 [facility] Comment on above: Performed By: #### B MP #### [address] [address] Chloride [Moles/Vol] 98 mmol/L Normal 98 - 107 [facility] Comment on above: Performed By: #### B MP #### [address] [address] Creatinine [Mass/Vol] 6.48 mg/dL High 0.50 - 1.30 [facility] Comment on above: Performed By: #### B MP #### [address] [address] GFR- AM. 10 mL/min/1.73m2 Abnormal >60 [facility] Comment on above: Result Comment: CALC ULATIONS OF ESTIMATED GFR ARE PERFORMED USING THE MDRD STUDY EQUATION FOR THE IDMS-TRACEABLE CREATININE METHODS. CLIN CHEM 2007;53:766-72 Performed By: #### B MP #### [address] [address] GFR-NON AM. 8 mL/min/1.73m2 Abnormal >60 [facility] Comment on above: Performed By: #### B MP #### [address] [address] Glucose [Mass/Vol] 107 mg/dL High 74 - 99 [facility] Comment on above: Performed By: #### B MP #### [address] [address] HCO3 (Bld) [Moles/Vol] 25 mmol/L Normal 21 - 32 [facility] Comment on above: Performed By: #### B MP #### [address] [address] Potassium [Moles/Vol] 4.7 mmol/L Normal 3.5 - 5.3 [facility] Comment on above: Performed By: #### B MP #### [address] [address] Sodium [Moles/Vol] 135 mmol/L Low 136 - 145 [facility] Comment on above: Performed By: #### B MP #### [address] [address] Urea nitrogen [Mass/Vol] 47 mg/dL High 6 - 23 [facility] Comment on above: Performed By: #### B MP #### [address] [address] CBC AND DIFFERENTIALon 06-04 Basophils (Bld) [#/Vol] 0.00 10*3/uL Normal 0.00 - 0.10 [facility] Comment on above: Performed By: #### C BCDF ####[address] [address] Basophils/100 WBC (Bld) 0.2 % Normal 0.0 - 2.0 [facility] Comment on above: Performed By: #### C BCDF ####[address] [address] Eosinophils (Bld) [#/Vol] 0.10 10*3/uL Normal 0.00 - 0.40 [facility] Comment on above: Performed By: #### C BCDF ####[address] [address] Eosinophils/100 WBC (Bld) 0.9 % Normal 0.0 - 6.0 [facility] Comment on above: Performed By: #### C BCDF ####[address] [address] Erythrocyte distribution width (RBC) [Ratio] 13.5 % Normal 11.5 - 14.5 [facility] Comment on above: Performed By: #### C BCDF ####[address] [address] Hematocrit (Bld) [Volume fraction] 38.1 % Low 41.0 - 52.0 [facility] Comment on above: Performed By: #### C BCDF ####[address] [address] Hemoglobin (Bld) [Mass/Vol] 12.6 g/dL Low 13.5 - 17.5 [facility] Comment on above: Performed By: #### C BCDF ####[address] [address] Lymphocytes (Bld) [#/Vol] 0.90 10*3/uL Normal 0.80 - 3.00 [facility] Comment on above: Performed By: #### C BCDF ####[address] [address] Lymphocytes/100 WBC (Bld) 10.0 % Normal 13.0 - 44.0 [facility] Comment on above: Performed By: #### C BCDF ####[address] [address] MCHC (RBC) [Mass/Vol] 33.1 g/dL Normal 32.0 - 36.0 [facility] Comment on above: Performed By: #### C BCDF ####[address] [address] MCV (RBC) [Entitic vol] 88 fL Normal 80 - 100 [facility] Comment on above: Performed By: #### C BCDF ####[address] [address] Monocytes (Bld) [#/Vol] 1.00 10*3/uL High 0.05 - 0.80 [facility] Comment on above: Performed By: #### C BCDF ####[address] [address] Monocytes/100 WBC (Bld) 12.0 % Normal 2.0 - 10.0 [facility] Comment on above: Performed By: #### C BCDF ####[address] [address] Neutrophils (Bld) [#/Vol] 6.50 10*3/uL High 1.60 - 5.50 [facility] Comment on above: Result Comment: Perc ent differential counts (%) should be interpreted in the context of the absolute cell counts (cells/L). Performed By: #### C BCDF ####[address] [address] Neutrophils/100 WBC (Bld) 76.9 % Normal 40.0 - 80.0 [facility] Comment on above: Performed By: #### C BCDF ####[address] [address] Platelets (Bld) [#/Vol] 111 10*3/uL Low 150 - 450 [facility] Comment on above: Performed By: #### C BCDF ####[address] [address] RBC 4.32 x10E12/L Low 4.50 - 5.90 [facility] Comment on above: Performed By: #### C BCDF ####[address] [address] WBC (Bld) [#/Vol] 8.5 10*3/uL Normal 4.4 - 11.3 [facility] Comment on above: Performed By: #### C BCDF ####[address] [address] [address] CHEST ABDOMEN PELVIS WO C [facility] 06-04-2021 CT CHEST ABDOMEN PELVIS WO CONTRAST Patient Name: ASHLEY WEINSTEIN STUDY: CT CHEST ABDOMEN PELVIS WO CONTRAST; 06/04/2021 12:50 pm INDICATION: hypoxia, urinary retention, constipation. No intravenous contrast was administered. COMPARISON: None. CT abdomen pelvis 03/19/2021 ACCESSION NUMBER(S): [id number] ORDERING CLINICIAN: ISAIAH CANCINO TECHNIQUE: CT of the chest, abdomen and pelvis was performed. Contiguous axial images were obtained at 3 mm slice thickness through the chest, abdomen and pelvis. Coronal and sagittal reconstructions at 3 mm slice thickness were performed. No intravenous contrast was administered; positive oral contrast was given. FINDINGS: Please note that the study is limited without intravenous contrast. CHEST: LUNG/PLEURA/LARGE AIRWAYS: Dependent streaky opacification of the left upper lobe and bilateral lower lobes favored to represent chronic scarring or atelectatic change. Bronchiectasis of the right medial lower lobe at the base within region of triangular base opacification suggestive of scarring or chronic atelectatic change. No pneumothorax or effusion.. VESSELS: Thoracic aorta is unremarkable with respect course, caliber, and contour. The main pulmonary artery and its branches are within normal limits. 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 HEART: Stable mild cardiomegaly. MEDIASTINUM AND VICENTE: Unremarkable thyroid. No pathologically enlarged mediastinal or perihilar lymph nodes. Unremarkable esophagus. CHEST WALL AND LOWER NECK: No acute osseous abnormality. Mild multilevel spondylosis of the imaged spine. Postsurgical changes from median sternotomy. ABDOMEN: LIVER: Stable 1.7 cm cyst within the right hepatic lobe. Liver is suboptimally assessed due to lack of contrast on the current exam. BILE DUCTS: No obvious biliary dilatation. GALLBLADDER: Interval cholecystectomy. There is mild reticulation in the region of the gallbladder fossa. There is a Ketan-Mckenzie type percutaneous drainage catheter within the region of the pili hepatis and gallbladder fossa. PANCREAS: Unremarkable. SPLEEN: Enlarged measuring up to 14.8 cm in anterior-posterior dimension. ADRENAL GLANDS: Unremarkable. KIDNEYS AND URETERS: Stable appearing bilateral perinephric stranding, presumed senescent. Mild left-sided pelviectasis, new. PELVIS: BLADDER: Decompressed secondary to catheterization. REPRODUCTIVE ORGANS: No pelvic mass. Prostate appears persistently enlarged and heterogeneous. BOWEL: No abnormal bowel wall thickening. Unremarkable appendix. Abundant fecal material within the right-sided colon which may indicate constipation. VESSELS: Atherosclerotic changes noted about the aortoiliac axis without evidence of aneurysm. PERITONEUM/RETROPERITONE UM/LYMPH NODES: No ascites or free air, no fluid collection. The retroperitoneum appears unremarkable. No enlarged mesenteric lymph nodes. ABDOMINAL WALL: Small fat containing bilateral inguinal hernias. Mild infiltration of the anterior abdominal wall subcutaneous tissues, nonspecific. BONES: No acute osseous abnormality. Stable appearing multilevel degenerative changes of the spine. IMPRESSION: Chest 1. Streaky dependent airspace opacities of the bilateral lower lobes and left lobe most suggestive of regions of scarring or chronic atelectatic change. Associated bronchiectasis of the medial right lower lobe. 2. Cardiomegaly. Abdomen-Pelvis 1. Interval postsurgical changes from cholecystectomy with a percutaneous drainage catheter within the right upper quadrant as above. There is mild reticulation of the region of the gallbladder fossa which is presumed postoperative. 2. Mild splenomegaly. 3. Mild left-sided pelviectasis, new since comparison CT images 03/19/21. Correlate with urinalysis. 4. Abundant fecal material within the right-sided colon which may indicate constipation. 5. Nonspecific mild soft tissue infiltration of the anterior abdominal wall subcutaneous tissues. Electronically signed by: JUDD TOMAS MD Normal [facility] CT Chest Abdomen Pelvis wo C [facility] 06-04-2021 CT Chest and Abdomen and Pelvis WO contrast Normal [facility] Work Phone: Complete Blood Count + Diffe jonathan 06-04-2021 Basophils/100 WBC (Bld) 0.2 % 0.0 - 2.0 [facility] Work Phone: Erythrocyte distribution width (RBC) [Ratio] 13.5 % See Below [facility] Work Phone: Comment on above: Reference Range: 11. 5 - 14.5 Hematocrit (Bld) [Volume fraction] 38.1 % below low threshold See Below [facility] Work Phone: Comment on above: Reference Range: 41. 0 - 52.0 Hemoglobin (Bld) [Mass/Vol] 12.6 g/dL below low threshold See Below [facility] Work Phone: Comment on above: Reference Range: 13. 5 - 17.5 Lymphocytes/100 WBC (Bld) 10.0 % See Below [facility] Work Phone: Comment on above: Reference Range: 13. 0 - 44.0 MCHC (RBC) [Mass/Vol] 33.1 g/dL See Below [facility] Work Phone: Comment on above: Reference Range: 32. 0 - 36.0 MCV (RBC) [Entitic vol] 88 fL 80 - 100 [facility] Work Phone: Monocytes/100 WBC (Bld) 12.0 % 2.0 - 10.0 [facility] Work Phone: Neutrophils/100 WBC (Bld) 76.9 % See Below [facility] Work Phone: Comment on above: Reference Range: 40. 0 - 80.0 Platelets (Bld) [#/Vol] 111 10*3/uL below low threshold 150 - 450 [facility] Work Phone: [phone] RBC (Bld) [#/Vol] 4.32 {x10E12/L} below low threshold See Below [facility] Work Phone: Comment on above: Reference Range: 4.5 0 - 5.90 WBC (Bld) [#/Vol] 8.5 10*3/uL 4.4 - 11.3 [facility] Work Phone: Complete Blood Count + Differential 0.00 {x10E9/L} See Below [facility] Work Phone: Comment on above: Reference Range: 0.0 0 - 0.10 Complete Blood Count + Differential 0.10 {x10E9/L} See Below [facility] Work Phone: Comment on above: Reference Range: 0.0 0 - 0.40 Complete Blood Count + Differential 1.00 {x10E9/L} above high threshold See Below [facility] Work Phone: Comment on above: Reference Range: 0.0 5 - 0.80 Complete Blood Count + Differential 0.90 {x10E9/L} See Below [facility] Work Phone: Comment on above: Reference Range: 0.8 0 - 3.00 Complete Blood Count + Differential 6.50 {x10E9/L} above high threshold See Below [facility] Work Phone: Comment on above: Reference Range: 1.6 0 - 5.50 Percent differential counts (%) should be interpreted in the context of the absolute cell counts (cells/L). Complete Blood Count + Differential 0.9 % 0.0 - 6.0 [facility] Work Phone: Consult-Surgeryon 06-04-2021 Consult-Surgery Service: Service: Surgery Consult: Consult requested by (Attending Name): Matty Swift Reason: Post-operative readmission History of Present Illness: Admission Reason: Urinary retention HPI: ASHLEY WEINSTEIN is a 76 year old Male who underwent laparoscopic subtotal cholecystectomy on 05/30/21. He had significant inflammation requiring top-down approach and subtotal cholecystectomy with drain placement. He presented to the ED this morning with urinary retention and no bowel movement since time of surgery. He had a santiago catheter placed with drainage of 1800cc urine. He reports requiring santiago catheter after a previous surgery for retention as well. He has an BAO secondary to this. He is afebrile. He has no leukocytosis. LFT's are normal. Drain remains serosanguinous. He has no nausea or vomiting. He has abdominal discomfort but no severe pain. No peritonitis. He had relief following drainage of the bladder. CT scan shows no fluid collections, large stool burden. Allergies: penicillin: Unknown Objective: Physical Exam by System: Constitutional: No acute distress, converses pleasantly Eyes: Pupils equal, round Respiratory/Thorax: No labored breathing, on room air Cardiovascular: NSR Gastrointestinal: Soft, distended, tender in suprapubic region (examined immediately prior to santiago placement), no significant RUQ tenderness, no peritonitis, incisions clean/dry/intact, drain serosanguinous and holding suction. Extremities: No peripheral edema Neurological: Alert, oriented x3 Psychological: Normal affect Skin: No jaundice Recent Lab Results: Results: I have reviewed these laboratory results: Hepatic Function Panel 04-Jun-2021 10:57:00 ResultValue Aspartate Transaminase, Serum 21 ALB 3.4 T Bili 0.6 Bilirubin, Serum Direct - Conjugated 0.2 ALKP 105 Alanine Aminotransferase, Serum 44 T Pro 6.2 L Complete Blood Count + Differential 04-Jun-2021 10:57:00 ResultValue White Blood Cell Count 8.5 Red Blood Cell Count 4.32 L HGB 12.6 L HCT 38.1 L MCV 88 MCHC 33.1 PLT 111 L RDW-CV 13.5 Neutrophil % 76.9 Lymphocyte % 10.0 Monocyte % 12.0 Eosinophil % 0.9 Basophil % 0.2 Neutrophil Count 6.50 H Lymphocyte Count 0.90 Monocyte Count 1.00 H Eosinophil Count 0.10 Basophil Count 0.00 Radiology Results: Results: I have reviewed this radiology result: Impression: Chest 1. Streaky dependent airspace opacities of the bilateral lower lobesand left lobe most suggestive of regions of scarring or chronic atelectatic change. Associated bronchiectasis of the medial right lower lobe. 2. Cardiomegaly. Abdomen-Pelvis 1. Interval postsurgical changes from cholecystectomy with a percutaneous drainage catheter within the right upper quadrant as above. There is mild reticulation of the region of the gallbladder fossa which is presumed postoperative. 2. Mild splenomegaly. 3. Mild left-sided pelviectasis, new since comparison CT images 03/19/21. Correlate with urinalysis. 4. Abundant fecal material within the right-sided colon which may indicate constipation. 5. Nonspecific mild soft tissue infiltration of the anterior abdominal wall subcutaneous tissues. CT Chest Abdomen Pelvis without Contrast [Jun 04 2021 1:19PM] Assessment: Mr. Weinstein is a 76yo male with post-operative urinary retention with secondary BAO. Also, with constipation. Recommend aggressive bowel regimen. Colace twice daily and daily miralax. Can give suppository tonight and if no result, enema. No narcotics, should not require them at this point. No evidence of bile leak. Okay to have regular diet. Needs drain care (empty and record daily), will likely remove immediately prior to discharge if remains non-bilious. BAO management per Dr. Reyna and primary team. Consult Status: Consult Order ID: [id number] Electronic Signatures: Kathy Duffy) (Signed 04-Jun-2021 18:40) Authored: Service, History of Present Illness, Allergies, Objective, Assessment/Recommendatio ns, Note Completion Last Updated: 04-Jun-2021 18:40 by Kathy Duffy) [facility] Covid 19 Resultson 1 SARS-CoV-2 (COVID-19) RNA TANK+probe Ql (Unsp spec) NEGATIVE COVID-19 Test Coronaviruses are common world-wide and are the cause of many common colds. SARS-COV2 is a new coronavirus that began circulating worldwide in 2019 so we are calling it COVID-19. It has been estimated that four out of five patients with COVID-19 will recover at home without the need for medical attention. Symptoms of COVID-19 may include cough, fever, shortness of breath, loss of taste or smell and other flu-like symptoms including chills, sore muscles, sore throat, and headache. Severe illness is more common in older people and people with other health problems such as high blood pressure, obesity, and immune system problems. If the test is positive, you have COVID-19. You will be contacted by the ordering physicians office and instructed to remain on home isolation, in accordance with CDC guidelines. You may also be contacted by the [facility] to see if any of your close contacts may have been exposed to the virus and need to quarantine. If the test is negative, you likely do not have COVID-19 at this time, but you still may have a different illness that can spread to other people (like Influenza, or the Flu) and could still be at risk for getting COVID-19. We recommend that you stay away from other people to limit the spread of illness until your symptoms are improving and you are fever-free for 24 hours without the use of fever lowering medications such as acetaminophen or ibuprofen. No test is 100% accurate so if you are still concerned you may have COVID-19, talk to your doctor about the need to continue to stay away from others. Medicines Unless your provider told you not to use the following: Acetaminophen (Tylenol and others) is generally safe. Anti-inflammatory medications, such as Ibuprofen (Advil or Motrin) or Naproxen (Aleve) can also be used. Wbqs-[id number]-[id number] cough and cold medicines can be used according to the instructions on the package. Some ngbu-ehm-aibzvjl medicines also contain acetaminophen. Make sure you are not taking more than your recommended dose. For those not hospitalized, there is no specific treatment available for this illness. Antibiotics do not treat Coronaviruses. Follow-Up Follow up with your doctor by scheduling a virtual visit or consider follow-up at one of our urgent care fever clinics. If you are having difficulty breathing, or are very weak and having difficulty standing, this is a medical emergency. Call 911 or have someone take you to the nearest emergency room immediately. If possible, wear a facemask. Additional guidance from the CDC for patients who tested POSITIVE for COVID-19 How to isolate: Isolate yourself in a specific room at home and limit your contact with others. Use a separate bathroom from other members of the household, when possible. Leave home only to get essential medical care. Do not go to work, school or public areas. Avoid using public transportation, ride-sharing, or taxis. Restrict contact with pets and other animals. If you must care for your pet or be around animals while you are sick, wash your hands before and after your interaction and wear a facemask. Make sure that shared spaces in the home have good airflow, such as by an air conditioner or an opened window, weather permitting. Personal Hygiene Procedures: Wear a face mask when in the same room as other people or pets. If a face mask interferes with your breathing, others should wear a mask when sharing space with you. Frequent hand-washing: wash your hands with soap and water for at least 20 seconds. If soap and water are not available, use alcohol-based hand promotions producer. Avoid touching your eyes, nose, and mouth with unwashed hands. Household Hygiene Procedures: Avoid sharing personal household items such as dishes, glassware, cups, eating utensils, towels or bedding with other people or pets in your home. After use, these items should be washed with soap and hot water. Disinfect all high-touch surfaces every day with antibacterial cleaning solutions such as Lysol wipes, bleach, cleansers, etc. High-touch surfaces include tabletops, doorknobs, bathroom fixtures, toilets, phones, keyboards, tablets and bedside tables. Immediately clean any surfaces that may have blood, poop or body fluids on them, using antibacterial cleaning solutions such as Lysol wipes, bleach, cleansers, etc. If clothing or bedding come into contact with blood, poop or body fluids, they should be washed immediately. Follow the directions on the laundry detergent and clothing labels but hot water is recommended when possible. Stopping home isolation precautions: If possible, consult your doctor before stopping home isolation precautions. According to the CDC, you can discontinue home isolation precautions when you have met both of these criteria: Your fever and respiratory symptoms have been gone for 24 archie (more content not included)... Normal [facility] HEPATIC FUNCTION PANELon Albumin [Mass/Vol] 3.4 g/dL Normal 3.4 - 5.0 [facility] Comment on above: Performed By: #### [facility] [place] #### [address] [address] ALP [Catalytic activity/Vol] 105 U/L Normal 33 - 136 [facility] Comment on above: Performed By: #### P [facility] #### [address] [address] ALT [Catalytic activity/Vol] 44 U/L Normal 10 - 52 [facility] Comment on above: Result Comment: Jessica ents treated with Sulfasalazine may generate falsely decreased results for ALT. Performed By: #### P [facility] #### [place] [id number] AST [Catalytic activity/Vol] 21 U/L Normal 9 - 39 [facility] Comment on above: Performed By: #### P [facility] #### [place] [id number] Bilirubin [Mass/Vol] 0.6 mg/dL Normal 0.0 - 1.2 [facility] Comment on above: Performed By: #### P [facility] #### [place] [id number] Bilirubin.indirect [Mass/Vol] 0.2 mg/dL Normal 0.0 - 0.3 [facility] Comment on above: Performed By: #### P [facility] #### [address] [address] Protein [Mass/Vol] 6.2 g/dL Low 6.4 - 8.2 [facility] Comment on above: Performed By: #### P [facility] #### [place] [id number] Hepatic Function Panelon Albumin BCP dye [Mass/Vol] 3.4 g/dL 3.4 - 5.0 [facility] Work Phone: [phone] ALP [Catalytic activity/Vol] 105 U/L 33 - 136 [facility] Work Phone: ALT With P-5'-P [Catalytic activity/Vol] 44 U/L 10 - 52 [facility] Work Phone: [phone] Comment on above: Patients treated wit h Sulfasalazine may generate falsely decreased results for ALT. AST With P-5'-P [Catalytic activity/Vol] 21 U/L 9 - 39 [facility] Work Phone: Bilirubin [Mass/Vol] 0.6 mg/dL 0.0 - 1.2 [facility] Work Phone: Bilirubin.direct [Mass/Vol] 0.2 mg/dL 0.0 - 0.3 [facility] Work Phone: Protein [Mass/Vol] 6.2 g/dL below low threshold 6.4 - 8.2 [facility] Work Phone: INFLUENZA A/B, COVID 2019 PC R,SYMPTOMATICon 06-04-2021 INFLUENZA A, PCR Not detected Normal Not Detected [facility] Comment on above: Result Comment: Resp iratory virus testing is performed routinely by PCR for Influenza A/B and RSV. Not Detected results do not preclude Influenza A/B or RSV infections since the adequacy of sample collection or low viral burden may impact the clinical sensitivity of this test method. Performed By: #### B MP #### [place] [address] INFLUENZA B, PCR Not detected Normal Not Detected [facility] Comment on above: Result Comment: Resp iratory virus testing is performed routinely by PCR for Influenza A/B and RSV. Not Detected results do not preclude Influenza A/B or RSV infections since the adequacy of sample collection or low viral burden may impact the clinical sensitivity of this test method. Performed By: #### B MP #### [place] [address] SARS-CoV-2 (COVID-19) RNA TANK+probe Ql (Unsp spec) Not detected Normal Not Detected [facility] Comment on above: Result Comment: . This test has received FDA Emergency Use Authorization (EUA) and has been verified by [facility]. This test is only authorized for the duration of time that circumstances exist to justify the authorization of the emergency use of in vitro diagnostic tests for the detection of SARS-CoV-2 virus and/or diagnosis of COVID-19 infection under section 564(b)(1) of the Act, 21 U.S.C. 360bbb-3(b)(1), unless the authorization is terminated or revoked sooner. [facility] is certified under CLIA-88 as qualified to perform high complexity testing. Testing is performed in the [facility] laboratory located at [address] [place] [address]. SARS-CoV-2/Flu/RSV Multiplex Test: Fact sheet for providers: https://www.fda.gov/media/547718/download Fact sheet for patients: https://www.fda.gov/media/032457/download Performed By: #### B MP #### [place] [address] Lab Specimen Source Nasal, Nasopharyngeal [facility] Comment on above: Performed By: #### B MP #### [place] [address] DATE OF SYMPTOM ONSET [YYYYMMDD]? [id number] [facility] Comment on above: Performed By: #### B MP #### [place] [address] Date and time of symptom onset [id number] [facility] Work Phone: INFLUENZA A/B, COVID 2019 PCR,SYMPTOMATIC Not detected See Below [facility] Work Phone: Comment on above: Reference Range: Not Detected.This test has received FDA Emergency Use Authorization (EUA) and has been verified by [facility]. This test is only authorized for the duration of time that circumstances exist to justify the authorization of the emergency use of in vitro diagnostic tests for the detection of SARS-CoV-2 virus and/or diagnosis of COVID-19 infection under section 564(b)(1) of the Act, 21 U.S.C. 360bbb-3(b)(1), unless the authorization is terminated or revoked sooner. [facility] is certified under CLIA-88 as qualified to perform high complexity testing. Testing is performed in the [facility] laboratory located at [address] [place], [place] [id number].SARS-CoV-2/Flu/RSV Multiplex Test: Fact sheet for providers: https://www.fda.gov/media/229558/downloadFact sheet for patients: https://www.fda.gov/media/240998/download Reference Range: Not Detected Respiratory virus testing is performed routinely by PCR for Influenza A/B and RSV. Not Detected results do not preclude Influenza A/B or RSV infections since the adequacy of sample collection or low viral burden may impact the clinical sensitivity of this test method. SOURCE: Nasal, Nasop haryngealReference Range: Not Detected Respiratory virus testing is performed routinely by PCR for Influenza A/B and RSV. Not Detected results do not preclude Influenza A/B or RSV infections since the adequacy of sample collection or low viral burden may impact the clinical sensitivity of this test method. LIPASEon 06-04-2021 Lipase [Catalytic activity/Vol] 8 U/L Low 9 - 82 [facility] Comment on above: Result Comment: Esperanza puncture immediately after or during the administration of Metamizole may lead to falsely low results. Testing should be performed immediately prior to Metamizole dosing. C-jxvwqf-g-benzoquinone imine (metabolite of Acetaminophen) will generate erroneously low results in samples for patients that have taken toxic doses of acetaminophen. Performed By: #### [facility] [place] #### [place] [id number] Laboratory - Chemistry and C hemistry - challengeon 06-04-2021 Anion gap [Moles/Vol] 17 mmol/L 10 - 20 [facility] Work Phone: Calcium [Mass/Vol] 8.6 mg/dL 8.6 - 10.3 [facility] Work Phone: Chloride [Moles/Vol] 98 mmol/L 98 - 107 [facility] Work Phone: CO2 [Moles/Vol] 25 mmol/L 21 - [address] [facility] Work Phone: Creatinine [Mass/Vol] 6.48 mg/dL above high threshold See Below [facility] Work Phone: Comment on above: Reference Range: 0.5 0 - 1.30 Glucose [Mass/Vol] 107 mg/dL above high threshold 74 - 99 [facility] Work Phone: Potassium [Moles/Vol] 4.7 mmol/L 3.5 - 5.3 [facility] Work Phone: Sodium [Moles/Vol] 135 mmol/L below low threshold 136 - 145 [facility] Work Phone: Urea nitrogen [Mass/Vol] 47 mg/dL above high threshold 6 - 23 [facility] Work Phone: Lipase, Serumon 06-04-2021 Lipase [Catalytic activity/Vol] 8 U/L below low threshold 9 - 82 [facility] Work Phone: Comment on above: Venipuncture immedia tely after or during the administration of Metamizole may lead to falsely low results. Testing should be performed immediately prior to Metamizole dosing. R-rbzzbe-n-benzoquinone imine (metabolite of Acetaminophen) will generate erroneously low results in samples for patients that have taken toxic doses of acetaminophen. No Panel Informationon 06-04 10 {mL/min/1.73m2} Abnormal >60 [facility] Work Phone: Comment on above: CALCULATIONS OF DENISSE MATED GFR ARE PERFORMED USING THE MDRD STUDY EQUATION FOR THE IDMS-TRACEABLE CREATININE METHODS. CLIN CHEM 2007;53:766-72 8 {mL/min/1.73m2} Abnormal >60 [facility] Work Phone: Order Reconciliationon 06-04 Order Reconciliation Page 1 Admission Reconciliation Document Reconciliation Type: Admission from ED requested on behalf of Sharon Valderrama (Advanced Practice Nurse) done by Sharon Valderrama (ACUTE CARE CERTIFIED NURSING ASSISTANT-POLICE CHIEF) Admission from ED - Reconciliation: 04-Jun-2021 15:01 by: Sharon Valderrama (ACUTE CARE CERTIFIED NURSING ASSISTANT-POLICE CHIEF) Home MedicationsEnteredLast Dose TakenReconciled with current Order Reconciliation Comment/ Additional Information amlodipine 10 mg tablet 1 tab(s) orally once a [id number] 1 6:00 AM amLODIPine (NORVASC) TabletDOSE = 10 mg Oral Dailyamlodipine 10 mg tablet continued as the inpatient order amLODIPine (NORVASC) Aspirin Enteric Coated 325 mg oral delayed release tablet 1 tab(s) orally once a day (at bedtime) 9:00 PM Aspirin Enteric Coated Enteric Coated Tablet (ECOTRIN)DOSE = 325 mg Oral DailyAspirin Enteric Coated 325 mg oral delayed release tablet continued as the inpatient order Aspirin Enteric Coated atorvastatin 40 mg tablet 1 tab(s) orally once a [id number] 1 6:00 AM Atorvastatin Tablet (LIPITOR)DOSE = 40 mg Oral Dailyatorvastatin 40 mg tablet continued as the inpatient order Atorvastatin Colace 100 mg oral capsule 3 cap(s) orally 2 times a [id number]-Jun-2021 9:00 PM Reviewed and Held duloxetine 30 mg capsule,delayed release 1 cap(s) orally 2 times a day 6:00 AM DULoxetine Delayed Release Capsule (CYMBALTA)DOSE = 30 mg Oral 2 Times a Dayduloxetine 30 mg capsule,delayed release continued as the inpatient order DULoxetine finasteride 5 mg tablet 1 tab(s) orally once a [id number] 1 6:00 AM Finasteride Tablet (PROSCAR)DOSE = 5 mg Oral Dailyfinasteride 5 mg tablet continued as the inpatient order Finasteride fluticasone propionate 50 mcg/actuation nasal spray,suspension 2 spray(s) in each nostril once a day, As [id number] Fluticasone 50 microgram/ Nasal Inhalation (FLONASE)DOSE = 2 spray(s) Each Nostril Daily, PRN congestionfluticasone propionate 50 mcg/actuation nasal spray,suspension continued as the inpatient order Fluticasone 50 microgram/ Nasal Inhalation oxycodone-acetaminophen 5 mg-325 mg oral tablet 1 tab(s) orally every 4 hours, As Needed for post-operative pain for 2 days.04-Jun-2021 oxyCODONE 5 mg - Acetaminophen 325 mg Tablet (PERCOCET)DOSE = 1 tablet(s) Oral Every 4 Hours, PRN Pain - Mod (4-6)oxycodone-acetamino phen 5 mg-325 mg oral tablet is continued and suspended as oxyCODONE 5 mg - Acetaminophen 325 mg tamsulosin 0.4 mg capsule 1 cap(s) orally once a day (at bedtime)04-Jun-2021 9:00 PM Tamsulosin Capsule (FLOMAX)DOSE = 0.4 mg Oral Daily tamsulosin 0.4 mg capsule continued as the inpatient order Tamsulosin Additional Current Orders Acetaminophen Tablet (TYLENOL)DOSE = 650 mg Oral Every 4 Hours, PRN Pain - Mild (1-3) Acetaminophen Tablet (TYLENOL)DOSE = 650 mg Oral Every 4 Hours, PRN Temp Greater Than or Equal to 38.0 C Bisacodyl Rectal Suppository (DULCOLAX)DOSE = 10 mg Rectal OnceClinician Notes: give 6 hours after milk of mag Heparin SubCutaneous DOSE = 5,000 unit(s) SubCutaneous Every 8 Hours Iohexol (Omnipaque 350-Radiology Contrast) (OMNIPAQUE)DOSE = 136.5 mL IntraVenous Push OnceCa.5 mL/Kg/DOSE x 91 Kg = 136.5 mL/Dose (Daily Total is 136.5 mL)LABS: Blood Urea Nitrogen, Serum,47,04-Jun-2021 11:50:33 Creatinine, Serum,6.48,04-Jun-2021 11:50:33 GFR-Non ,8,04-Jun-2021 11:50:33 GFR-,10,04-Jun-2021 11:50:33 Iohexol (Omnipaque 350-Radiology Contrast) (OMNIPAQUE)DOSE = 136.5 mL IntraVenous Push OnceCa.5 mL/Kg/DOSE x 91 Kg = 136.5 mL/Dose (Daily Total is 136.5 mL) Iohexol (Omnipaque 350-Radiology Contrast) (OMNIPAQUE)DOSE = 136.5 mL IntraVenous Push OnceCa.5 mL/Kg/DOSE x 91 Kg = 136.5 mL/Dose (Daily Total is 136.5 mL) Magnesium Hydroxide Oral Liquid CONCENTRATE (MILK OF MAGNESIA)DOSE = 10 mL Oral Every 12 Hours Ondansetron Injectable (ZOFRAN)DOSE = 4 mg IntraVenous Push Every 4 Hours, PRN Nausea and/or Vomiting Sennosides Tablet (SENOKOT)DOSE = 1 tablet(s) Oral Daily Sodium Chloride 0.9% Infusion IV Bag Volume = 1,000 mL Run at: 50 mL/hr IntraVenous Sodium Chloride 0.9% Injectable Flush via Peripheral LineVolume = 10 mL IntraVenous Flush Every 8 Hours and as Needed Normal [facility] Patient Profile - Adult v2on 06-04-2021 Patient Profile - Adult v2 Profile: Initial Info: How to be AddressedHillard(1) Spoken Language PreferredEnglish (2) Source of Informationpatient Stated Reason for Admissionabdomen pain,unable to void Primary Contact Name and NumberSjonny weinstein [phone] Wants Family/Rep Notified of Admissionn/a; family present Notify PCPnotify PCP Informed of Patient Visiting [facility]yes [facility] To in Past 90 Dayshospital Employment Statusretired(1) Current or Previous Servicenone(1) Patient Belongingsremains with patient Patient Belongings Remaining with Patientclothing; cell phone/electronics Medications Brought to Hospitalno History of MDROno General Health: Blood Avoidance/Restrictionsno ne(1) Previous Transfusion Reactionno(1) Weight in kg91 kilogram(s)(3) Weight in iug749.6 pound(s) Weight Methodstated Scale Typebed Height in cm162.5 centimeter(s) Height in feet5 feet(3) Height in inches4 inch(es)(3) Height Methodstated BMI (kg/m2)34.461 square meter [facility] Based Care: How would you like to participate in your careget involved What is the number one concern for you during this hospitalizationget better What is the most important thing we can do to support you during this hospitalizationget better Is there anything we need to know to best care for youNA Substance: Smoking Statusnever smoker (4) Alcohol Usedenies(4) Drug Usedenies (4) Health Mgmt: Symptoms/Conditions Managed at Homecardiovascular Cardiovascular Management Strategiesactivity; diet modification; exercise Cardiovascular Managementmanaged Relationship/Environ: Resource/Environmental Concernsnone Primary Source of Support/Comfortspouse Lives Withspouse Living Arrangementshouse Services Anticipated at Transitionnone Anticipated Transition Tomuncy Significant IndicatorsComplete Information Review: Allergies, Home Meds and Significant Events have been Reviewed and Verified with Patient/Familyyes ALLERGY, INTOLERANCE, ADVERSE EVENT: Allergies: penicillin: Drug, Unknown, Active Electronic Signatures: Anne Marie Rincon (RAZA) (Signed 04-Jun-2021 20:29) Authored: Initial Info, General Health, RSP Based Care, Substance, Health Mgmt, Relationship/Environ, Additional Information Last Updated: 04-Jun-2021 20:29 by Anne Marie Rincon (RAZA) References: 1. Data Referenced From Patient Profile - Adult v2 30-May-2021 16:49 2. Data Referenced From Triage - ED 04-Jun-2021 09:59 3. Data Referenced From 1. Vital Signs 04-Jun-2021 09:42 4. Data Referenced From History and Physical 04-Jun-2021 13:44 Normal [facility] Provider Note - ED v3on 12-0 Provider Note - ED v3 Provider Note: Chart Review: ED NOTES ED NOTES: ====HPI==== Patient is a 76-year-old male who presents to the emergency department with a chief complaint of abdominal pain. Patient states that he had a cholecystectomy on May [address] Avalos. He states that he has not had a bowel movement for approximately 5 days. He states that he is unable to urinate. He states that he feels as if he has to go but when he goes to void he is only voiding small amounts. He states that he has pain in the incision sites. He denies any fever or chills. No nausea or vomiting. He is on pain medicine and states that he is taking Colace. He states that this has not been helping. PMHX: CAD, HTN, Hypercholesterolemia, BPH PSHX: Cholecystectomy Social HX: denies TOBACCO denies ETOH denies DRUGS ====Review of Systems==== 10 point system review is negative except for those specifically mentioned in history of present illness ====Physical Exam==== VITALS: Constitutional/General: Alert and oriented x3, well appearing, nontoxic, appears uncomfortable Head: Normocephalic and atraumatic. Eyes: EOMI, conjunctive normal, sclera nonicteric, subconjunctival layer is pink. Neck: Supple, full ROM, no stridor, no crepitus, no meningeal signs. Trachea at midline. Respiratory: Lungs clear to auscultation bilaterally, no wheezes, rales, or rhonchi, not in respiratory distress. Cardiovascular: Regular rate, regular rhythm, no murmurs, gallops, or rubs, 2+ distal pulses. Chest: normal chest wall movement GI: Abdomen soft, nontender, + distention, no organomegaly, no palpable masses, no rebound, guarding, or rigidity. Rectal exam:: No stool appreciated in the rectal vault. Normal external exam Musculoskeletal: Moves all extremities x4, warm and well perfused, no clubbing, cyanosis, or edema, cap refill <3 seconds Integument: Skin warm and dry, no rashes. Lymphatic: No lymphadenopathy noted. Neurologic: NO focal deficits Psychiatric: Normal affect. ====ED Course and Medical Decision Making==== See MDM section for review of findings & plan of care. Portions of this note were dictated by speech recognition. An attempt at proof reading was made to minimize errors. Minor errors in promotional marketing analyst may be present. Please call if questions.. HISTORY OF PRESENTING ILLNESS ASHLEY is a 76 year old Male and was seen by me at 04-Jun-2021 10:10 for a chief complaint of urinary retention (c/o urinary retention and constipation since he had gallbladder surgery on 05/30. states he is only able to urinate small amts.)(1). Triage Information: Most recent Vital Sign Value Date Temp (F): 97.3 06-04-2021 09:59 Temp (C): 36.2 06-04-2021 09:59 Heart Rate (beats/min): 83 06-04-2021 09:59 Respirations (breaths/min): 20 06-04-2021 09:59 SpO2 (%): 93 06-04-2021 09:59 BP Systolic (mm Hg): 167 06-04-2021 09:59 BP Diastolic (mm Hg): 75 06-04-2021 09:59 PAST MEDICAL HISTORY ALLERGIES/INTOLERANCES: Allergy Allergen: penicillin Type: Drug Reaction: Unknown HEALTH HISTORY: Medical History Name:CATIE on CPAP Code:G47.33 Name:Hypertension Code:I10 Name:Hypercholesterolemi a Code:E78.00 Name:BPH (benign prostatic hyperplasia) Code:N40.0 OUTPATIENT MEDICATIONS: Home Medications Review Status for Reconciliation: Complete Med Status: Patient Currently Takes Medications Drug Name: amlodipine 10 mg tablet Instructions: 1 tab(s) orally once a day Drug Name: atorvastatin 40 mg tablet Instructions: 1 tab(s) orally once a day Drug Name: duloxetine 30 mg capsule,delayed release Instructions: 1 cap(s) orally 2 times a day Drug Name: finasteride 5 mg tablet Instructions: 1 tab(s) orally once a day Drug Name: fluticasone propionate 50 mcg/actuation nasal spray,suspension Instructions: 2 spray(s) in each nostril once a day Drug Name: tamsulosin 0.4 mg capsule Instructions: 1 cap(s) orally once a day Drug Name: oxycodone-acetaminophen 5 mg-325 mg oral tablet Instructions: 1 tab(s) orally every 4 hours, As Needed for post-operative pain for 2 days. SIGNIFICANT EVENTS: Clinical Events Description:Surgical Procedure Additional Notes:Laparoscopic cholecystectomy Past Surgical History Description:Triple bypass 2010 Description:Cholecystect ashish MDM MDM/ED COURSE: Patient's abdomen is distended especially in the location of the bladder. Patient had a Santiago catheter placed as bladder scan showed over 887 mL of urine. Patient does appear to be uncomfortable and Santiago catheter was placed at this time for urinary retention. Patient is a 76-year-old male who presents to the emergency department with acute urinary retention and constipation. He had a cholecystectomy with percutaneous drain placement on May [address] Duffy was in to evaluate the patient in the emergency department. Patient's abdomen was (more content not included)... Normal [facility] Risk Screen - Adult Emergenc yon 06-04-2021 Risk Screen - Adult Emergency Preferred Language: Preferred Language: Preferred Language for Discussing Health Care (patient/designee)Elisoe lees Advanced Directives: Advance Directive/DNRno Family Violence Adult: Abuse Screen: Are you or have you been threatened or abused physically, emotionally, or sexually by anyoneno Learning Assessment (Patient): Learning Assessment (Patient): Patient is Able to be Assessed for Learningyes Factors Influencing Readiness to Learnn/a Factors that Impact Ability to Learnnone Devices/Methods Used to Communicatenone Learning Preferencesverbal instruction; written material Cultural Considerationsnone Developmental Considerationsnone Sikhism Considerationsnone Learning Assessment (Other Learner): Learning Assessment (Other Learner): Other learner availableno Pressure Injury/TB/Substance: Pressure Injury: Do you have a coughno Smoking Statusnever smoker Alcohol Usedenies Drug Usedenies Admission Risk Screen: Significant IndicatorsComplete CAGE: CAGE: Is this an injured patient at a Trauma Center ([facility]/[place] /[place]): no Electronic Signatures: Anahi Finney (RN) (Signed 04-Jun-2021 10:09) Authored: Preferred Language, Advanced Directives, Family Violence Adult, Learning Assessment (Patient), Learning Assessment (Other Learner), Pressure Injury/TB/Substance, Pressure Injury, CAGE Last Updated: 04-Jun-2021 10:09 by Anahi Finney (RN) [facility] Triage - EDon 06-04-2021 Triage - ED Chart Review: PRIMARY ASSESSMENT ABCD Normal Findings: airway open and patent, circulation normal and alert and oriented ARRIVAL INFORMATION Means of Arrival: Ambulatory Mode of Arrival: private vehicle Arrival From: home Accompanied By: self Language: Spoken Language Preferred: Tajik Reading Language Preferred: Tajik Present on Arrival: Device Present on Arrival to ED: no CHIEF COMPLAINT ASHLEY WEINSTEIN is a Male patient with a chief complaint of urinary retention (c/o urinary retention and constipation since he had gallbladder surgery on 05/30. states he is only able to urinate small amts.). Triage Date/Time: 04-Jun-2021 09:42 STACY: 3 Pain Rating (0-10): 8 = Severe Pain location: lower abd Vital Signs: Temperature: 97.3F ( 36.2C) Blood Pressure: 167/75 Mean: Heart Rate: 83 Respiratory Rate: 20 Pulse Oximetry: 93% on room air, no respiratory support. Height: 5 feet 4.00 inches. 162.5 CM Weight: 200.6 pounds. Calculated 91.0 kg. (stated) Calculated BMI (kg/m2): 34.461 Calculated BSA (m2) 2.03 [place] Coma Scale: Best Eye Response: (E4) spontaneous Best Motor Response: (M6) obeys commands Best Verbal Response: (V5) oriented [place] Score: 15 Allergies: yes Patient has homicidal thoughts: no Symptom Notes: . Symptoms Are POSITIVE For: nausea and urgency. Risk Screens Suicide Risk Screen In the Past Month: Have you wished you were or wished you could go to sleep and not wake up no In the Past Month: Have you had any actual thoughts of killing yourself no In Your Lifetime: Have you ever done anything, started to do anything, or prepared to do anything to end your life no Morel Fall Scale Screening Has the patient fallen before (or is the patient in the ED as a result of a fall) has not had a fall Does the patient have an impaired gait does not have impaired gait Is the patient cognitively impaired not cognitively impaired Interventions: Morel Fall Interventions: LOW INTERVENTIONS: *patient oriented to surroundings and call system, * patient/family falls education completed and documented, *patients fall status communicated during bedside handoff, *whiteboard updated, *mode of toileting discussed with patient, *bed in low position with brakes locked, *call light in reach, * non-skid footwear TRAVEL HISTORY Travel History Coronavirus Screening: no exposure or symptoms Travel Exposure History: NO travel to International locations in the past 30 days PAIN Pain Scale Used: FREDDIE Pain Rating (0-10): 8 = Severe Past Medical History: Past Medical History Reviewedyes Cholecystectomy: Past Surgical History, Active Electronic Signatures: Anahi Finney (RAZA) (Signed 04-Jun-2021 10:07) Authored: Quick Triage, Risk Screens, Pain, Arrival, ABCD, Travel History, Chart Review, Scores, Past Medical History Last Updated: 04-Jun-2021 10:07 by Anahi Finney (RN) Normal [facility] UA MICROSCOPICon 06-04-2021 RBC None Normal 0-5 [facility] Comment on above: Performed By: #### P SASC #### [address] [address] WBC (U) [#/Vol] /uL Normal 0-5 [facility] Comment on above: Performed By: #### P SASC #### [address] [address] URINALYSIS WITH CULTURE IF I NDICATEDon 06-04-2021 Appearance (U) CLEAR Normal CLEAR [facility] Comment on above: Performed By: #### U ARFX ####[address] [address] Bilirubin Ql (U) Negative Normal NEGATIVE [facility] Comment on above: Performed By: #### U ARFX ####[place] [address] Color (U) Straw Normal STRAW,YELLOW [facility] Comment on above: Performed By: #### U ARFX ####[place] [address] Glucose Ql (U) Negative Normal NEGATIVE [facility] Comment on above: Performed By: #### U ARFX ####[place] [address] Hemoglobin Ql (U) SMALL(1+) Abnormal NEGATIVE [facility] Comment on above: Performed By: #### U ARFX ####[place] [address] Ketones Ql (U) Negative Normal NEGATIVE [facility] Comment on above: Performed By: #### U ARFX ####[place] [address] Leukocyte esterase Test strip Ql (U) Negative Normal NEGATIVE [facility] Comment on above: Performed By: #### U ARFX ####[place] [address] Nitrite Ql (U) Negative Normal NEGATIVE [facility] Comment on above: Performed By: #### U ARFX ####[place] [address] pH (U) 5.0 [pH] Normal 5.0 - 8.0 [facility] Comment on above: Performed By: #### U ARFX ####[place] [address] Protein Ql (U) Negative Normal NEGATIVE [facility] Comment on above: Performed By: #### U ARFX ####[place] [address] Specific gravity (U) [Rel density] 1.005 Normal 1.005 - 1.035 [facility] Comment on above: Performed By: #### U ARFX ####[place] [address] Urobilinogen (U) [Mass/Vol] mg/dL Normal 0.0 - 1.9 [facility] Comment on above: Performed By: #### U ARFX ####[place] [address] Lab Specimen Source Normal [facility] Comment on above: Performed By: #### U ARFX ####[place] [address] Performed By: #### P SASC #### [place] [address] Color (U) Straw See Below [facility] Work Phone: [phone] Comment on above: SOURCE: Reference Ra nge: STRAW,YELLOW Glucose Ql (U) Negative NEGATIVE -[facility] Work Phone: [phone] Ketones Ql (U) Negative NEGATIVE [facility] Work Phone: [phone] Leukocyte esterase Test strip Ql (U) Negative NEGATIVE -[facility] Work Phone: [phone] pH (U) 5.0 [pH] 5.0 - 8.0 -[facility] Work Phone: [phone] Protein (U) [Mass/Vol] Negative NEGATIVE -[facility] Work Phone: [phone] RBC (U) [#/Vol] SMALL(1+) Abnormal NEGATIVE [facility] Work Phone: [phone] Specific gravity (U) [Rel density] 1.005 1 See Below [facility] Work Phone: [phone] Comment on above: Reference Range: 1.0 05 - 1.035 URINALYSIS WITH CULTURE IF INDICATED Negative NEGATIVE -[facility] Work Phone: [phone] URINALYSIS WITH CULTURE IF INDICATED <2.0 0.0 - 1.9 -[facility] Work Phone: [phone] URINALYSIS WITH CULTURE IF INDICATED CLEAR CLEAR -[facility] Work Phone: [phone] Urinalysis, Microscopicon Urinalysis, Microscopic None 0-5 [facility] Work Phone: Urinalysis, Microscopic <1 0-5 [facility] Work Phone: Comment on above: SOURCE: Discharge [id number] Discharge Profile2 Discharge Orders: Anticipated Discharge Date: Anticipated Discharge [id number] Anticipated Discharge Time06:58 DNAR: Code Status at Discharge: Full Code Provider FINAL REVIEW of Orders: Final Review: Final Review of Medication Reconciliation and Orders Completedby Physician Reviewing ProviderKathy Duffy MD at 31-May-2021 06:58:39 Appointments: Follow-Up Appointment 01: Physician/Dept/Herbert Duffy Scheduled Date/[id number] 11:00 [id number] Natalia Danielson / Alessia Phone [phone] Electronic Signatures: Kathy Duffy) (Signed 31-May-2021 06:58) Authored: Discharge Orders, Provider FINAL REVIEW of Orders, Gold Form - Optoelectronics Engineer Summary Luda Arreola (COMPUTER PROGRAMMING PROFESSOR) (Signed 31-May-2021 07:26) Authored: Discharge Orders, Appointments Last Updated: 31-May-2021 07:26 by Luda Arreola (COMPUTER PROGRAMMING PROFESSOR) [facility] Order Reconciliationon 05-31 Order Reconciliation Page 1 Discharge Reconciliation Document Reconciliation Type: Discharge requested on behalf of Kathy Duffy (Physician) done by Kathy Duffy) Discharge - Reconciliation: 31-May-2021 06:57 by: Kathy Duffy) Home Medications EnteredHOME MEDICATIONS AT DISCHARGE DateReconciliation Comment/ Additional Information amlodipine 10 mg tablet 1 tab(s) orally once a day 20-Mar-2021 05:24 amlodipine 10 mg tablet 1 tab(s) orally once a day 20-Mar-2021 05:24 amlodipine 10 mg tablet is continued as amlodipine 10 mg tablet atorvastatin 40 mg tablet 1 tab(s) orally once a day 20-Mar-2021 05:24 atorvastatin 40 mg tablet 1 tab(s) orally once a day 20-Mar-2021 05:24 atorvastatin 40 mg tablet is continued as atorvastatin 40 mg tablet duloxetine 30 mg capsule,delayed release 1 cap(s) orally 2 times a day 20-Mar-2021 05:25 duloxetine 30 mg capsule,delayed release 1 cap(s) orally 2 times a day 20-Mar-2021 05:25 duloxetine 30 mg capsule,delayed release is continued as duloxetine 30 mg capsule,delayed release finasteride 5 mg tablet 1 tab(s) orally once a day 20-Mar-2021 05:25 finasteride 5 mg tablet 1 tab(s) orally once a day 20-Mar-2021 05:25 finasteride 5 mg tablet is continued as finasteride 5 mg tablet fluticasone propionate 50 mcg/actuation nasal spray,suspension 2 spray(s) in each nostril once a day 20-Mar-2021 05:26 fluticasone propionate 50 mcg/actuation nasal spray,suspension 2 spray(s) in each nostril once a day 20-Mar-2021 05:26 fluticasone propionate 50 mcg/actuation nasal spray,suspension is continued as fluticasone propionate 50 mcg/actuation nasal spray,suspension tamsulosin 0.4 mg capsule 1 cap(s) orally once a day 20-Mar-2021 05:27 tamsulosin 0.4 mg capsule 1 cap(s) orally once a day 20-Mar-2021 05:27 tamsulosin 0.4 mg capsule is continued as tamsulosin 0.4 mg capsule Current OrdersDateHOME MEDICATIONS AT DISCHARGE DateReconciliation Comment/ Additional Information Acetaminophen Tablet (TYLENOL)DOSE = 650 mg Oral Every 4 Hours 30-May-2021 12:26 Acetaminophen is not required amLODIPine (NORVASC) TabletDOSE = 10 mg Oral Daily 30-May-2021 12:26 amLODIPine (NORVASC) is not required Atorvastatin Tablet (LIPITOR)DOSE = 40 mg Oral Daily 30-May-2021 12:26 Atorvastatin is not required DULoxetine Delayed Release Capsule (CYMBALTA)DOSE = 30 mg Oral Daily 30-May-2021 12:26 DULoxetine is not required Finasteride Tablet (PROSCAR)DOSE = 5 mg Oral DailyNotes from Pharmacy: Reproductive Risk- Single Nitrile Glove 30-May-2021 12:26 Finasteride is not required Heparin SubCutaneous DOSE = 5,000 unit(s) SubCutaneous Every 8 HoursNotes from Pharmacy: Note Concentration Prior to Administration 30-May-2021 12:26 Heparin SubCutaneous is not required Ibuprofen Tablet (ADVIL, MOTRIN)DOSE = 400 mg Oral Every 8 Hours, PRN Pain - Mild (1-3) 30-May-2021 12:26 Ibuprofen is not required Morphine Injectable DOSE = 2 mg IntraVenous Push Every 2 Hours, PRN Pain - Severe (7-10) 30-May-2021 12:26 Morphine Injectable is not required Ondansetron Injectable (ZOFRAN)DOSE = 4 mg IntraVenous Push Every 4 Hours, PRN Nausea & Vomiting 30-May-2021 12:26 Ondansetron Injectable is not required oxyCODONE Immediate Release Tablet (OXYIR, ROXICODONE)DOSE = 5 mg Oral Every 4 Hours, PRN Pain - Mod (4-6) 30-May-2021 12:26 oxyCODONE Immediate Release is not required Tamsulosin Capsule (FLOMAX)DOSE = 0.4 mg Oral Daily 30-May-2021 12:26 Tamsulosin is not required Home Medications Added During Discharge Reconciliation Activity as Tolerated 31-May-2021, Routine, Assistance Level: None, Restrictions: None Additional Patient Instructions Do not consume alcoholic beverages for 24 hours. Additional Patient Instructions Do not make important decisions or sign any important documents for the next 24 hours. Additional Patient Instructions Do not remove steri strips, they will fall off on their own. Additional Patient Instructions Do not smoke for 24 hours. Additional Patient Instructions Keep Surgical incision dry and clean. Empty and record drain daily and more often if over half full. Record amount and color of drainage. Bring this record with you to your follow up appointment. Call Physician For: excessive bleeding (slow general oozing that completely soaks dressing or fresh bright red bleeding) or bleeding that will not stop. Apply pressure to the area and elevate. Call Physician For: inability to urinate every 8-12 hours and your bladder becomes too full or painful. Call Physician For: persistant nausea and/or vomiting Over 24 hours Call Physician For: signs and sypmtoms of infection Increased redness or swelling at incision site, increased pain/tenderness at surgical site, increased temperature greater than 100 degress, increasing and/or progressive drainage from surgical site, and/or unusual odor from surgical site. Diet Regular Discharge Discharge Diagnosis< K81.0 Acute cholecystitis (more content not included)... Normal [facility] Admission Risk Screen - Adul ton 05-30-2021 Admission Risk Screen - Adult Allergies: Allergies: penicillin: Unknown Patient Verification: New W ID Band Applied in my Departmentno Type of ID Patient is WearingW wristband, but not applied here Patient Transferred from Other Facility ([facility], [facility],etc)no Patient Identity Verified Bypatient ID Band FULL Name, include Middle, spelling matches patient's ID used for verificationyes ID Band Matches Patient ID used for Verficationyes ID Band MRN Matches EMR MRNyes Visitor Restriction: Coronavirus Visitor Restriction: Reasonable restrictions to in-person visitors will be observed due to current coronavirus pandemic. Travel History: COVID-19 Screening Completedno exposure or symptoms Travel or Exposure Past 30 DaysNO travel to International locations in the past 30 days Ebola AlertFor Ebola-like Symptoms: Isolate Patient and Notify Provider/Demurrage Man For Contact: Notify Provider/Demurrage Man Advance Directive: Advance Directive/DNRyes Advance Directive typeLiving Will Living Will AvailabilityLiving Will not available now Living Will [id number] Morel Fall Screen: History of falling (immediate or previous)no (0) Secondary Diagnosisyes (15) Intravenous Therapy/ Heparin/Saline Lockyes (20) Gait/Transferringnormal/ bedrest/wheelchair (0) Ambulatory Aidsnone/bedrest/nurse assist (0) Mental Statusoriented to own ability (0) Score: Low risk (<25). Moderate risk (25-44). High risk (>44).35 Morel InterventionsMODERATE INTERVENTIONS: *Low Interventions Plus: * falls risk band/sticker applied to patient, *yellow non-skid footwear, *instruct to call for assistance before getting out of bed, *bed/chair/bedside commode/toilet alarms, *sensory devices/ambulatory aides available and in reach, *medications reviewed for potential side effects and care planning. Family Violence Screen: Are you or have you been threatened or abused physically, emotionally, or sexually by anyoneno Do you feel UNSAFE going back to the place where you are livingno Clinical assessment: Are there any apparent signs of injuries/behaviors that could be related to abuse/neglectno Social Service Consult for abuse/neglect needed this visitno Functional Screen: Functional Screen: In the recent/past 2-4 weeks, patient or family have noticedno issues that require a speech/language consult at this time AM-PAC- Basic Mobility/Daily Activity: Patient baseline bedboundno Turning from your back to your side while in a flat bed without using bedrailsnone Moving from lying on your back to sitting on the side of a flat bed without using bedrailsnone Moving to and from bed to chair (including a wheelchair)none Standing up from a chair using your arms (e.g. wheelchair or bedside chair) none To walk in hospital roomnone Climbing 3-5 steps with railingnone Basic Mobility - Total Score24 Putting on and taking off regular lower body clothingnone Bathing (including washing, rinsing, drying)none Putting on and taking off regular upper body clothingnone Toileting, which includes using toilet, bedpan or urinalnone Taking care of personal grooming such as brushing teethnone Eating Mealsnone Daily Activity - Total Score24 Learning Assessment (Patient): Patient is Able to be Assessed for Learningyes Factors Influencing Readiness to Learnnone Factors that Impact Ability to Learnnone Devices/Methods Used to Communicateglasses Learning Preferencesverbal instruction Cultural Considerationsnone Developmental Considerationsnone Sikhism Considerationsnone Learning Assessment (Other Learner): Other learner availableno Depression Screen: During the past month, have you often been bothered by feeling down, depressed or hopelessno During the past month, have you often had little interest or pleasure in doing thingsno Have you had any thoughts of harming anyone elseno [place] Suicide: Risk Screen Not Applicable/Able to Answerable to be screened In the Past Month: Have you wished you were or could go to sleep and not wake upno In the Past Month: Have you had any actual thoughts of killing yourselfno Lifetime: Have you ever done, started to do, or prepared to do anything to end your lifeno [place] Suicide Risknegative Adult Nutrition Screen: Have you recently lost weight without tryingno Have you been eating poorly because of a decreased appetiteno Malnutrition Screening Tool Score0 Malnutrition Screening Tool RiskMST = 0 or 1 Not at risk. Eating well with little or no weight loss Nutrition Consult needed this visitno Can Patient Participate in Room Serviceyes Patient requires Paper Dishes/Plastic Utensilsno Pain Screen: Pain Scalenumerical 0-10 Pain Scale Educationteaching provided Current Pain Level0 = None Acceptable Pain Level3 = Mild Expression of Pain (nonverbal)verbalization Chronic Painno Spiritual Scre (more content not included)... [facility] Discharge Planning [id number] 1 07-31-2020 Discharge Planning Note2 Discharge Planning: Planned Dispositionhome Anticipated Discharge [id number] Assessment: Discharge Planning Assessment [id number] Primary Contact Name and NumberSjonny Weinstein [phone](1) Lives Withspouse(1) Living Arrangementshouse(1) Stated Reason for AdmissionSurgery(1) [place] Resource/Environmental Concernsnone(1) Anticipated Transition [place](1) Services Anticipated at Transitionnone(1) Discharge Documentation: Discharge/Transfer Date/[id number] 07:50 Discharged Accompanied Byspouse Discharge Modeambulatory Transportation Methodprivate car Code StatusCode Status order at time of discharge: Full Code [place] DNR Form Sent with Patient and/or Familyn/a Valuables/Medications/Be longings Returnedyes Final DispositionHome Electronic Signatures: Tony Rodrigues (RN) (Signed 30-May-2021 16:54) Authored: Discharge Planning, Assessment, Discharge Documentation Aylin Wilson (RN) (Signed 31-May-2021 07:18) Authored: Discharge Planning, Discharge Documentation Hannah Lorenzo (ASST N MGR) (Signed 31-May-2021 10:32) Authored: Discharge Planning, Discharge Documentation Last Updated: 31-May-2021 10:32 by Hannah Lorenzo (ASST N MGR) References: 1. Data Referenced From Patient Profile - Adult v2 30-May-2021 16:49 [facility] No Panel Informationon 05-30 -[facility] Work Phone: Order Reconciliationon 05-30 Order Reconciliation Page 1 Admission Reconciliation Document Reconciliation Type: Admission from OR requested on behalf of Kathy Duffy (Physician) done by Kathy Duffy) Admission from OR - Reconciliation: 30-May-2021 12:26 by: Kathy Duffy) Home MedicationsEnteredLast Dose TakenReconciled with current Order Reconciliation Comment/ Additional Information amlodipine 10 mg tablet 1 tab(s) orally once a [id number] 1 06:30 AM amLODIPine (NORVASC) TabletDOSE = 10 mg Oral Dailyamlodipine 10 mg tablet continued as the inpatient order amLODIPine (NORVASC) atorvastatin 40 mg tablet 1 tab(s) orally once a [id number] AM Atorvastatin Tablet (LIPITOR)DOSE = 40 mg Oral Dailyatorvastatin 40 mg tablet continued as the inpatient order Atorvastatin duloxetine 30 mg capsule,delayed release 1 cap(s) orally 2 times a day [id number] AM DULoxetine Delayed Release Capsule (CYMBALTA)DOSE = 30 mg Oral Dailyduloxetine 30 mg capsule,delayed release continued as the inpatient order DULoxetine finasteride 5 mg tablet 1 tab(s) orally once a [id number] 1 AM Finasteride Tablet (PROSCAR)DOSE = 5 mg Oral Dailyfinasteride 5 mg tablet continued as the inpatient order Finasteride fluticasone propionate 50 mcg/actuation nasal spray,suspension 2 spray(s) in each nostril once a [id number] Reviewed and Held tamsulosin 0.4 mg capsule 1 cap(s) orally once a [id number] 1 06:30 AM Tamsulosin Capsule (FLOMAX)DOSE = 0.4 mg Oral Dailytamsulosin 0.4 mg capsule continued as the inpatient order Tamsulosin Additional Current Orders Acetaminophen Tablet (TYLENOL)DOSE = 650 mg Oral Every 4 Hours Ambulate 30-May-2021, Routine, 3 Times a Day, Assistance Level: None, Restrictions: None Call Physician For: BP, diastolic Less Than 50 Greater Than 100 Call Physician For: BP, systolic Less Than 90 Greater Than 170 Call Physician For: pulse Less Than 50 Greater Than 110 Call Physician For: Respiratory rate Less Than 10 Greater Than 22 Call Physician For: temperature Less Than 36.5 Greater Than 38.0 Call Physician For: urine output Less Than 100 Over 4 hours Call Physician For: urine output Less Than 300 Over 8 hours Communication Order Nurse to follow Nurse Driven Santiago Protocol. Complete Blood Count ConditionalOrder Lab to Collect - STATLavender EDTA Compression Device, Sequential Compression Device, Sequential CPAP Continuous FIO2 Or LPMof:0.21Expiratory Pressure (CPAP) Of:5Delivery Device: RT DiscretionUse Home MachineSpecial Instructions: < Remove While Awake>> Culture, Blood ConditionalOrder Lab to Collect - STATAEROBIC (Mint or Blue capped) blood culture vial AND Anaerobic (Maroon capped) blood culture vials.-Separate sites for each set of cultures. Clean venipuncture site with alcohol then antiseptic prep. Clean top of culture bottle with Alcohol wipe. Send to microbiology lab immediately at Ambient temperature. Clinician Instructions: 1 of 2 Culture, Blood ConditionalOrder Lab to Collect - STATAEROBIC (Mint or Blue capped) blood culture vial AND Anaerobic (Maroon capped) blood culture vials.-Separate sites for each set of cultures. Clean venipuncture site with alcohol then antiseptic prep. Clean top of culture bottle with Alcohol wipe. Send to microbiology lab immediately at Ambient temperature. Clinician Instructions: 2 of 2 Diet Regular DVT Risk Assessment Complete DVT Risk Score: 5 Highest Risk DVT Risk Factors:Age 60-74 years (2); BMI 26 - 34.9 (1), Current Major Surgery > 45 min (2) Electrocardiogram 12 Lead RoutineClinical Indications: ACS SymptomsNotify MD if performed Heparin SubCutaneous DOSE = 5,000 unit(s) SubCutaneous Every 8 Hours HYDROmorphone Injectable (DILAUDID)DOSE = 0.5 mg IntraVenous Push Every 5 Minutes, PRN Pain - Mod (4-6) (PACU)Clinician Notes: Yolette-operative order ONLYMax total of 4 mg regardless of dose. Ibuprofen Tablet (ADVIL, MOTRIN)DOSE = 400 mg Oral Every 8 Hours, PRN Pain - Mild (1-3) Incentive Spirometry Every 1 Hour, While Awake10 times each hour Intake & Output Strict - Q4 x 24 hours, then Q8 Lactate, Level ConditionalOrder Lab to Collect - STATGrey Sodium Fluoride-Draw without stasis and immediately send tube on ice to laboratory Lactated Ringers Infusion IV Bag Volume = 1,000 mL Run at: 100 mL/hr IntraVenous Clinician Notes: Yolette-operative order ONLY May Not Participate in Room Service No Midazolam Injectable (VERSED)DOSE = 2 mg IntraVenous Push Once, PRN AnxietyClinician Notes: ACS-PREOP Morphine Injectable DOSE = 2 mg IntraVenous Push Every 2 Hours, PRN Pain - Severe (7-10) Ondansetron Injectable (ZOFRAN)DOSE = 4 mg IntraVenous Push Every 4 Hours, PRN Nausea & Vomiting oxyCODONE Immediate Release Tablet (OXYIR, ROXICODONE)DOSE = 5 mg Oral Every 4 Hours, PRN Pain - Mild (1-3) (PACU) when able to take OralClinician Notes: Yolette-operative order ONLY oxyCODONE (more content not included)... Normal [facility] Patient Profile - Adult v2on 05-30-2021 Patient Profile - Adult v2 Profile: Initial Info: How to be AddressedHillard(1) Spoken Language PreferredEnglish (1) Source of Informationpatient Stated Reason for AdmissionSurgery Primary Contact Name and NumberSharon Js [phone] Wants Family/Rep Notified of Admissionn/a; family present Notify PCPnotify PCP Informed of Patient Visiting Rightsyes [place] From[place] Employment Statusretired(2) Current or Previous Servicenone(2) Patient Belongingsremains with patient Patient Belongings Remaining with Patientvision aids; clothing; cell phone/electronics Medications Brought to Hospitalno General Health: Blood Avoidance/Restrictionsno ne(1) Previous Transfusion Reactionno(1) Weight in kg90.4 kilogram(s) Weight in yws942.2 pound(s) Weight Methodactual (measured) Scale Typestanding Height in cm162.5 centimeter(s) Height in feet5 feet Height in inches4 inch(es) Height Methodstated BMI (kg/m2)34.234 square meter RSP Based Care: How would you like to participate in your careGet information What is the number one concern for you during this hospitalizationPain control What is the most important thing we can do to support you during this hospitalizationControl my pain Is there anything we need to know to best care for youNo Substance: Smoking Statusnever smoker Health Mgmt: Symptoms/Conditions Managed at Homerespiratory Respiratory Symptoms/Conditionssleep disordered breathing Respiratory Managementmanaged Relationship/Environ: Resource/Environmental Concernsnone Primary Source of Support/Comfortspouse Lives Withspouse Living Arrangementshouse Services Anticipated at Transitionnone Anticipated Transition [place] Significant IndicatorsComplete Information Review: Allergies, Home Meds and Significant Events have been Reviewed and Verified with Patient/Familyyes ALLERGY, INTOLERANCE, ADVERSE EVENT: Allergies: penicillin: Drug, Unknown, Active Electronic Signatures: Tony Rodrigues (RAZA) (Signed 30-May-2021 16:54) Authored: Initial Info, General Health, RSP Based Care, Substance, Health Mgmt, Relationship/Environ, Additional Information Last Updated: 30-May-2021 16:54 by Tony Rodrigues (RAZA) References: 1. Data Referenced From Patient Profile - Preop v3 29-May-2021 12:55 2. 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), center location, insurance information Prep Instructions Reviewedyes Instructed to Have No Fluids Aftermidnight How to be AddressedHillard Spoken Language PreferredEnglish Source of Informationpatient Stated Reason for Admissiongallbladder out Primary Contact Name and NumberSharon [phone] Medications Brought to Hospitalno General Health: Weight in kg90.4 kilogram(s) Weight in uzg140.2 pound(s) Weight Methodactual (measured) Scale Typestanding Height in feet5 feet Height in inches4 inch(es) Height in cm162.5 centimeter(s) Height Methodstated BMI (kg/m2)34.234 square meter Patient or Family Member Reaction to Anesthesiano previous reaction; no previous family member reaction Blood Avoidance/Restrictionsno ne Previous Transfusion Reactionno Health Mgmt: Symptoms/Conditions Managed at Homecardiovascular; genitourinary; respiratory Cardiovascular Symptoms/Conditionshyper tension Respiratory Symptoms/Conditionssleep disordered breathing Barriers to Managing Healthnone Relationship/Environ: Lives Withspouse Living Arrangementshouse Resource/Environmental Concernsnone Anticipated Transition [place]; overnight stay then home Services Anticipated at Transitionnone Tobacco Use: Tobacco Useno Pre-op Checklist: Arrival [id number] Arrival Time10:25 Procedure Typelap choly NPMasood Last Food [id number] 18:00 Last Clear Fluid [id number] 06:30 ID Band On Patientpatient ID (name), allergy Consent Signedyes H&P Completeyes Anesthesia Assessment Completedyes Chest X-Ray Performednot ordered Type and Screen Resultedn/a Chlorhexadine Bath Givencompleted at home Nasal Antiseptic Appliednot applicable Soap and Water Bath the Night Before Surgerynot applicable Hair Washed with Shampoonot applicable SCD's Appliedsent to OR YARON Hose Appliednot ordered Additional Information: Information Review: Allergies, Home Meds and Significant Events have been Reviewed and Verified with Patient/Familyyes Allergy, Intolerance, Adverse Event: Allergies: penicillin: Drug, Unknown, Active Problem List: Medical History: BPH (benign prostatic hyperplasia): Catalog Name: Benign prostatic hyperplasia without lower urinary tract symptoms Hypercholesterolemia: Catalog Name: Pure hypercholesterolemia, unspecified Hypertension: Catalog Name: Essential (primary) hypertension CATIE on CPAP: Catalog Name: Obstructive sleep apnea (adult) (pediatric) Surg History: History of foot surgery: Catalog Name: Other specified postprocedural states History of carpal tunnel release: Catalog Name: Other specified postprocedural states, Description: in 2010 History of coronary artery bypass graft x 3: Catalog Name: Presence of aortocoronary bypass graft Electronic Signatures: Claudia Chacko) (Signed 30-May-2021 10:50) Authored: Initial Info, General Health, Health Mgmt, Relationship/Environ, Pre-op Checklist, Additional Information Jina Hannah) (Signed 29-May-2021 12:57) Authored: Initial Info, General Health, Tobacco Use, Additional Information Last Updated: 30-May-2021 10:50 by Claudia Chacko (RAZA) [facility] Tobacco Screening.on 021 Fall risk assessment a) No falls within the last year [facility] Work Phone: Tobacco use status [facility] b) No [facility] Work Phone: Coronavirus 2019 RNA by PCR, Screening Asymptomticon 05-28-2021 Coronavirus 2019 RNA by PCR, Screening Asymptomtic Not detected Normal See Below -[facility] Work Phone: Comment on above: SOURCE: Nasal, Nasop haryngealReference Range: Not Detected.This assay is designed to detect the N, ORF1ab and/or S genes of SARS-CoV-2 via nucleic acid amplification. A Negative (NOT DETECTED) result does not preclude 2019-nCoV infection since the adequacy of sample collection and/or low viral burden may result in presence of viral nucleic acids below the clinical sensitivity of this test method. Negative (NOT DETECTED) result should not be used as the sole basis for treatment or other patient management decisions. Rather negative results should be combined with clinical observations, patient history, and epidemiological information to make patient management decisions.Fact sheet for providers: https://www.fda.gov/media/215898/downloadFact sheet for patients: https://www.fda.gov/media/229979/downloadThis test has received FDA Emergency Use Authorization (EUA) and has been verified by [facility] ([facility]). This test is only authorized for the duration of time that circumstances exist to justify the authorization of the emergency use of in vitro diagnostic tests for the detection of SARS-CoV-2 virus and/or diagnosis of COVID-19 infection under section 564(b)(1) of the Act, 21 U.S.C. 360bbb-3(b)(1), unless the authorization is terminated or revoked sooner. [facility] is certified under CLIA-88 as qualified to perform high complexity testing. Testing is performed in the [facility] laboratories located at [address] [place] [address]. Tobacco Screening.on Fall risk assessment a) No falls within the last year [facility] Work Phone: Tobacco use status [facility] b) No -[facility] Work Phone: Tobacco Screening.on Fall risk assessment a) No falls within the last year [facility] Work Phone: Tobacco use status [facility] b) No -[email or web address] Work Phone: BASIC METABOLIC PANELon 09-2 Anion gap [Moles/Vol] 9 mmol/L Low 10 - 20 [facility] Comment on above: Performed By: #### P SASC #### [address] [address] Calcium [Mass/Vol] 8.0 mg/dL Low 8.6 - 10.3 [facility] Comment on above: Performed By: #### P SASC #### [address] [address] Chloride [Moles/Vol] 101 mmol/L Normal 98 - 107 [facility] Comment on above: Performed By: #### P SASC #### [address] [address] Creatinine [Mass/Vol] 1.05 mg/dL Normal 0.50 - 1.30 [facility] Comment on above: Performed By: #### P SASC #### [address] [address] GFR- AM. >60 Normal >60 [facility] Comment on above: Result Comment: CALC ULATIONS OF ESTIMATED GFR ARE PERFORMED USING THE MDRD STUDY EQUATION FOR THE IDMS-TRACEABLE CREATININE METHODS. CLIN CHEM 2007;53:766-72 Performed By: #### P SASC #### [address] [address] GFR-NON AM. >60 Normal >60 [facility] Comment on above: Performed By: #### P SASC #### [address] [address] Glucose [Mass/Vol] 105 mg/dL High 74 - 99 [facility] Comment on above: Performed By: #### P SASC #### [address] [address] HCO3 (Bld) [Moles/Vol] 30 mmol/L Normal 21 - 32 [facility] Comment on above: Performed By: #### P SASC #### [address] [address] Potassium [Moles/Vol] 3.7 mmol/L Normal 3.5 - 5.3 [facility] Comment on above: Performed By: #### P SASC #### [address] [address] Sodium [Moles/Vol] 136 mmol/L Normal 136 - 145 [facility] Comment on above: Performed By: #### P SASC #### [place] [id number] Urea nitrogen [Mass/Vol] 17 mg/dL Normal 6 - 23 [facility] Comment on above: Performed By: #### P SASC #### [address] [address] CBCon 03-24-2021 Erythrocyte distribution width (RBC) [Ratio] 13.6 % Normal 11.5 - 14.5 [facility] Comment on above: Performed By: #### P SASC #### [place] [id number] Hematocrit (Bld) [Volume fraction] 38.9 % Low 41.0 - 52.0 [facility] Comment on above: Performed By: #### P SASC #### [place] [id number] Hemoglobin (Bld) [Mass/Vol] 12.7 g/dL Low 13.5 - 17.5 [facility] Comment on above: Performed By: #### P SASC #### [place] [id number] MCHC (RBC) [Mass/Vol] 32.7 g/dL Normal 32.0 - 36.0 [facility] Comment on above: Performed By: #### P SASC #### [address] [address] MCV (RBC) [Entitic vol] 90 fL Normal 80 - 100 [facility] Comment on above: Performed By: #### P SASC #### [address] [address] Platelets (Bld) [#/Vol] 202 10*3/uL Normal 150 - 450 [facility] Comment on above: Performed By: #### P SASC #### [address] [address] RBC 4.34 x10E12/L Low 4.50 - 5.90 [facility] Comment on above: Performed By: #### P SASC #### [address] [address] WBC (Bld) [#/Vol] 9.4 10*3/uL Normal 4.4 - 11.3 [facility] Comment on above: Performed By: #### P SASC #### [address] [address] Daily Progress Note-Medicine on 03-24-2021 Daily Progress Note-Medicine Service: Medicine Review of Systems: Review of Systems: Constitutional: NEGATIVE: Fever, Chills ENMT: NEGATIVE: Nasal Discharge, Nasal Congestion, Ear Pain, Mouth Pain, Throat Pain Respiratory: NEGATIVE: Dry Cough, Productive Cough, Hemoptysis, Wheezing, Shortness of Breath Cardiac: NEGATIVE: Chest Pain, Dyspnea on Exertion, Orthopnea, Palpitations, Syncope Gastrointestinal: NEGATIVE: Nausea, Vomiting, Diarrhea, Constipation, Abdominal Pain Genitourinary: NEGATIVE: Discharge, Dysuria, Flank Pain, Frequency, Hematuria Musculoskeletal: NEGATIVE: Decreased ROM, Pain, Swelling, Stiffness, Weakness Neurological: NEGATIVE: Dizziness, Confusion, Headache, Syncope Psychiatric: NEGATIVE: Mood Changes, Anxiety Subjective Data: ASHLEY WEINSTEIN is a 75 year old Male who is Hospital Day # 6. Additional Information: Patient doing well voicing no complaints and anxious for discharge Objective Data: Objective Information: T PRBPSpO2 [id number]/7094% Date/Time03/24 8: 8: 8: 8: 8:24 Range(36C - 36.1C ) (70 - 80 ) (18 - 18 ) (114 - 125 )/ (65 - 70 ) (93% - 96% ) Pain reported at 03/23 20:00: 0 = None Physical Exam by System: Constitutional: Awake and alert; oriented x3 with no apparent distress or respiratory distress Head/Neck: Neck supple with no palpable lymphadenopathy, bruits or masses; trachea midline with increased neck circumference Respiratory/Thorax: Clear to auscultation bilaterally no wheezes or rhonchi Cardiovascular: Regular rate and rhythm; normal S1-S2 with no murmur; no pitting edema and 2+ pulses bilaterally Gastrointestinal: Soft, nontender, nondistended, positive bowel sounds Neurological: Nonfocal; cranial nerves II through XII appear intact Psychological: Pleasant affect Recent Lab Results: Results: I have reviewed these laboratory results: Basic Metabolic Panel 24-Mar-2021 05:29:00 ResultValue Glucose, Serum 105 H NA 136 K 3.7 CL 101 Bicarbonate, Serum 30 Anion Gap, Serum 9 L BUN 17 CREAT 1.05 GFR-Non >60 GFR- >60 Calcium, Serum 8.0 L Complete Blood Count 24-Mar-2021 05:29:00 ResultValue White Blood Cell Count 9.4 Red Blood Cell Count 4.34 L HGB 12.7 L HCT 38.9 L MCV 90 MCHC 32.7 PLT 202 RDW-CV 13.6 Assessment and Plan: Comorbidities: Comorbidityobesity Obesityobesity (BMI 35-39.9) Code Status: Code StatusFull Code Assessment: 75-year-old male admitted for acute cholecystitis which has improved/resolved. He has not O2 dependent at this time as he was requiring oxygen yesterday. Patient does have a history of hypertension, hyperlipidemia BPH and GERD. PLAN: 1. Patient will be discharged home today 2. He will need 7 days of Flagyl 3. See the addendum and discharge summary as well for discharge plans Electronic Signatures: Harris Ortiz) (Signed 24-Mar-2021 10:54) Authored: Service, Review of Systems, Subjective Data, Objective Data, Assessment and Plan, Note Completion Last Updated: 24-Mar-2021 10:54 by Harris Ortiz (DO) Normal [facility] Laboratory - Chemistry and C hemistry - challengeon 03-24-2021 Anion gap [Moles/Vol] 9 mmol/L below low threshold 10 - 20 [email or web address] Work Phone: Calcium [Mass/Vol] 8.0 mg/dL below low threshold 8.6 - 10.3 [email or web address] Work Phone: Chloride [Moles/Vol] 101 mmol/L 98 - 107 [facility] Work Phone: [phone] CO2 [Moles/Vol] 30 mmol/L 21 - 32 [facility] Work Phone: Creatinine [Mass/Vol] 1.05 mg/dL See Below - [facility] Work Phone: [phone] Comment on above: Reference Range: 0.5 0 - 1.30 Glucose [Mass/Vol] 105 mg/dL above high threshold 74 - 99 [facility] Work Phone: [phone] Potassium [Moles/Vol] 3.7 mmol/L 3.5 - 5.3 - [facility] Work Phone: [phone] Sodium [Moles/Vol] 136 mmol/L 136 - 145 -[facility] Work Phone: [phone] Urea nitrogen [Mass/Vol] 17 mg/dL 6 - 23 [facility] Work Phone: [phone] Laboratory - Hematology and Cell countson 03-24-2021 Erythrocyte distribution width (RBC) [Ratio] 13.6 % See Below [facility] Work Phone: [phone] Comment on above: Reference Range: 11. 5 - 14.5 Hematocrit (Bld) [Volume fraction] 38.9 % below low threshold See Below [facility] Work Phone: Comment on above: Reference Range: 41. 0 - 52.0 Hemoglobin (Bld) [Mass/Vol] 12.7 g/dL below low threshold See Below [facility] Work Phone: Comment on above: Reference Range: 13. 5 - 17.5 MCHC (RBC) [Mass/Vol] 32.7 g/dL See Below [facility] Work Phone: Comment on above: Reference Range: 32. 0 - 36.0 MCV (RBC) [Entitic vol] 90 fL 80 - 100 [facility] Work Phone: Platelets (Bld) [#/Vol] 202 10*3/uL 150 - 450 [email or web address] Work Phone: RBC (Bld) [#/Vol] 4.34 {x10E12/L} below low threshold See Below [employer] [facility] Work Phone: [phone] Comment on above: Reference Range: 4.5 0 - 5.90 WBC (Bld) [#/Vol] 9.4 10*3/uL 4.4 - 11.3 [email or web address] [employer] [facility] Work Phone: [phone] No Panel Informationon 03-24 >60 >60 [employer] [facility] Work Phone: Comment on above: CALCULATIONS OF DENISSE MATED GFR ARE PERFORMED USING THE MDRD STUDY EQUATION FOR THE IDMS-TRACEABLE CREATININE METHODS. CLIN CHEM 2007;53:766-72 Daily Progress Note-General Internal Medicineon 03-23-2021 Daily Progress Note-General Internal Medicine Consult Type: subsequent visit/care Service: General Internal Medicine History of Present Illness: History Present Illness: Admission Reason: ACUTE CALCULOUS CHOLECYSTITIS HPI: DENIES ABDOMINAL PAIN. CONFUSION IS BETTER TODAY. EXPECTORATING SPUTUM TODAY AND COUGHING WHICH IS NEW. STATES HE FEELS BETTER THAN YESTERDAY Subjective Data: ASHLEY WEINSTEIN is a 75 year old Male who is Hospital Day # 5. Overnight Events: Patient had an uneventful night. Objective Data: Objective Information: T PRBPSpO2 [id number]/6395% Date/Time03/23 7: 7: 7: 7: 7:21 Range(36.2C - 36.8C ) (66 - 83 ) (16 - 20 ) (106 - 143 )/ (60 - 70 ) (92% - 96% ) As of 23-Mar-2021 00:00:00, patient is on 1 L/min of oxygen via nasal cannula. Pain reported at 03/23 8:00: 0 = None Pain reported at 03/23 8:00: 0 = None Weights 03/23 5:44: Weight in kg (Weight (kg)) 93.5 03/23 5:44: Weight in lbs ((lbs)) 206.1 Physical Exam by System: Constitutional: Well developed, awake/alert/oriented x3, no distress, alert and cooperative Eyes: PERRL ENMT: MOIST ORAL MUCOSA Respiratory/Thorax: RIGHT LOWER LOBE DIM Cardiovascular: Regular, rate and rhythm, no murmurs, 2+ equal pulses of the extremities, normal S 1and S 2 Gastrointestinal: DISTENDED FIRM NON TENDER BSP X 4 NORMOACTIVE Neurological: alert and oriented x3, intact senses, motor, response and reflexes, normal strength Psychological: Appropriate mood and behavior Skin: WARM DRY PINK Medication: Medications: Continuous Medications -------- 1. Sodium Chloride 0.9% Infusion: 1000 mL IntraVenous 2. Sodium Chloride 0.9% Infusion: 1000 mL IntraVenous Scheduled Medications -------- 1. amLODIPine (NORVASC): 10 mg Oral Daily 2. Atorvastatin: 40 mg Oral Daily 3. DULoxetine: 30 mg Oral 2 Times a Day 4. Famotidine Injectable: 20 mg IntraVenous Push Every 12 Hours 5. Finasteride: 5 mg Oral Daily 6. levoFLOXacin (LEVAQUIN): 750 mg Oral Every 24 Hours 7. Metoprolol Tartrate: 25 mg Oral 2 Times a Day 8. metroNIDAZOLE (FLAGYL): 500 mg Oral Every 8 Hours 9. Tamsulosin: 0.4 mg Oral Daily PRN Medications -------- 1. Albuterol 2.5 mg/ 3 mL Nebulizer Soln: 3 mL Inhalation Every 6 Hours 2. Morphine Injectable: 1 mg IntraVenous Push Every 4 Hours 3. Morphine Injectable: 2 mg IntraVenous Push Every 6 Hours 4. Ondansetron Injectable: 4 mg IntraVenous Push Every 4 Hours 5. Sodium Chloride 0.9% Injectable Flush: 1.5 mL IntraVenous Flush Every 8 Hours and as Needed Recent Lab Results: Results: I have reviewed these laboratory results: Complete Blood Count 22-Mar-2021 05:48:00 ResultValue White Blood Cell Count 9.0 Red Blood Cell Count 4.08 L HGB 12.0 L HCT 36.7 L MCV 90 MCHC 32.6 PLT 138 L RDW-CV 13.3 Basic Metabolic Panel 22-Mar-2021 05:48:00 ResultValue Glucose, Serum 133 H NA 135 L K 3.5 CL 103 Bicarbonate, Serum 27 Anion Gap, Serum 9 L BUN 22 CREAT 1.09 GFR-Non >60 GFR- >60 Calcium, Serum 7.7 L Radiology Results: Results: Impression: As above Xray Chest 2 View PA + Lateral [Mar 22 2021 3:27PM] Assessment and Plan: Code Status: Code StatusFull Code Advance Care Planning: Advance Care Planning: I evaluated the patient and determined the patient's capacity to understand the risks, benefits and alternatives to treatment. I elicited the patient's goals for treatment and reviewed advance directives and medical orders for life sustaining treatment. The patient was given an opportunity to review a blank advance directive as appropriate. Assessment: A 75-year-old male with history of hypertension, hyperlipidemia, BPH, GERD, constipation presented with acute calculus cholecystitis Plan advance to low fat Hydrate the patient gently with normal saline Antiemetics using Zofran 4 mg IV every 6 hours as needed Pain control with morphine 1 to 2 mg every 4-6 hours as needed for moderate to severe pain Ciprofloxacin 400 mg IV daily Flagyl 500 mg 3 times daily IV Lactate better Follow CBC and BMP daily dc tomorrow am if able to tolerate diet well Resume home medications as appropriate change to oral Abx on dc and cont. to follow surgery outpatient DVT and GI prophylaxis per policy Lovenox 40 mg subcu daily 03/23 SEEN AND EXAMINED AFEBRILE MENTAL STATUS- ACUTE METABOLIC ENCEPHALOPATHY SECONDARY TO PNEUMONIA- IMPROVED CHEST XRAY OBTAINED YESTERDAY- RLL INFILTRATE/SMALL RIGHT PLEURAL EFFUSION- CIPRO CHANGED TO LEVAQUIN AND CONTINUE FLAGYL ACUTE HYPOXEMIC RESPIRATORY FAILURE SECONDARY TO PNEUMONIA/ATELECTASIS- SMALL RIGHT PLEURAL EFFUSION TOLERATED DIET DC HELD FOR HYPOXIA- ORDERED INCENTIVE SPIROMETRY- PATIENT WAS NOT DOING CORRECTLY- EDUCATED ON CORRECT TECHNIQUE WITH AT BEDS (more content not included)... Normal [facility] Nutrition Therapy-Follow Upo n 03-23-2021 Nutrition Therapy-Follow Up Assessment Subjective/Objective: Note Type: Follow Up Note Authored by: Registered Dietitian Automatic Fancy Machine Operator Pager Number: [facility] Nutrition Note: The patient is a 75 year old Male hospital day 5 with a history of hypertension, hyperlipidemia, BPH, GERD, constipation presented with acute calculus cholecystitis. Nutrition follow-up completed today. Pt was going to be discharged yesterday, yet that was held 2/2 hypoxia and confusion. Per attending physician's note, the pt reports that he is feeling better today with an improvement in confusion. He is able to be discharged when he no longer requires oxygen. Pt was resting in his chair with his spouse at bedside upon f/u. The pt was advanced to a Low Fat diet on 03/21/21 and has been tolerating with 75-100% oral intakes documented in the EMR. Pt reports that his appetite and intakes are very good, and he has been tolerating well. IVF: Sodium Chloride 0.9% @ 75mL/hr = 1800 mL volume/24 hours. Pt was receiving Ensure Clear (240kcal and 8g protein each) 2x/day with breakfast and dinner. Discussed that the pt may discontinue supplement use at this time 2/2 improvement in oral intakes. Will change to Ensure Enlive (350kcal and 20g protein each) daily with breakfast as requested by the pt. Pt with updated weight of 93.5kg today, which indicates a significant weight gain of 4.7% in less than one week. May question the accuracy of the weight as obtained from the bed scale. Pt refused NFPA upon assessment. No wasting upon visual assessment noted. Pt and spouse were provided diet education upon assessment. No questions at this time. Encouraged intakes of fruits, vegetables, whole grains, lean meats, healthy fats, using canola and vegetable oil to cook and minimal oil use. Encouraged pt to eat slowly and as tolerated. Will continue to follow the pt as needed. Objective Information: T PRBPSpO2 Value36.15598331/6395% Date/Time03/23 7: 7: 7: 7: 7:21 Range(36.2C - 36.8C ) (66 - 83 ) (18 - 20 ) (106 - 143 )/ (60 - 70 ) (92% - 96% ) As of 23-Mar-2021 00:00:00, patient is on 1 L/min of oxygen via nasal cannula. Pain reported at 03/23 8:00: 0 = None Weights 03/23 5:44: Weight in kg (Weight (kg)) 93.5 03/23 5:44: Weight in lbs ((lbs)) 206.1 ---- Intake and Output ----- Mn/Dy/Year TimeIntakeOutputNet Mar 23, 2021 2:00 pm000 Mar 23, 2021 6:00 [id number] Mar 22, 2021 10:00 [id number] The Intake and Output Totals for the last 24 hours are: IntakeOutputNet [id number] Intake Output Enteral - Oral 840 mL Urine 950 mL Height/Weight: Height in cm: 162.5 centimeter(s) Weight (kg): 89.1 BMI (kg/m2): 33.742 square meter Weight history/ % weight change: EMR weight history: 11/22/20: 205lb (insignificant weight loss of 4.2%) 08/25/20: 204.31lb 07/24/20: 201lb 06/21/20: 199.06lb 05/24/20: 202.06lb 04/21/20: 197.19lb 04/07/20: 199.25lb Suspect some weight loss with decreased intakes. UBW ~197lb. Reviewed EMR wt hx. Insignificant weight loss of 4.2% in ~4 months noted. Pt with weight fluctuations per hx. Pt with updated weight of 93.5kg today, which indicates a significant weight gain of 4.7% in less than one week. May question the accuracy of the weight as obtained from the bed scale. Recent Lab Results: Results: I have reviewed these laboratory results: Basic Metabolic Panel 22-Mar-2021 05:48:00 ResultValue Glucose, Serum 133 H NA 135 L K 3.5 CL 103 Bicarbonate, Serum 27 Anion Gap, Serum 9 L BUN 22 CREAT 1.09 GFR-Non >60 GFR- >60 Calcium, Serum 7.7 L Current Active Medications/PN: Sodium Chloride 0.9% Injectable Flush, via Peripheral Line Volume = 1.5 mL IntraVenous Flush Every 8 Hours and as Needed, 19-Mar-2021 Ondansetron Injectable, (ZOFRAN) DOSE = 4 mg IntraVenous Push Every 4 Hours, PRN Nausea and/or Vomiting, 20-Mar-2021 Famotidine Injectable, (PEPCID) DOSE = 20 mg IntraVenous Push Every 12 Hours, 20-Mar-2021 Morphine Injectable, DOSE = 1 mg IntraVenous Push Every 4 Hours, PRN Pain - Mod (4-6), 20-Mar-2021 Morphine Injectable, DOSE = 2 mg IntraVenous Push Every 6 Hours, PRN Pain - Severe (7-10), 20-Mar-2021 amLODIPine (NORVASC), Tablet DOSE = 10 mg Oral Daily, 20-Mar-2021 Atorvastatin, Tablet (LIPITOR) DOSE = 40 mg Oral Daily, 20-Mar-2021 DULoxetine, Delayed Release Capsule (CYMBALTA) DOSE = 30 mg Oral 2 Times a Day, 20-Mar-2021 Finasteride, Tablet (PROSCAR) DOSE = 5 mg Oral Daily Notes from Pharmacy: Reproductive Risk- Single Nitrile Glove, 20-Mar-2021 Metoprolol Tartrate, Tablet (LOPRESSOR) DOSE = 25 mg Oral 2 Times a Day, 20-Mar-2021 Tamsulosin, Capsule (FLOMAX) DOSE = 0.4 mg Oral Daily, 20-Mar-2021 Albuterol 2.5 mg/ 3 mL Nebulizer Soln, (PROVENTIL) DOSE = 3 mL Inhalation Every 6 Hours via Nebulizer, PRN Shortness of Breath, 21-Mar-2021 metroNIDAZOLE (FLAG (more content not included)... Normal [facility] BASIC METABOLIC PANELon 09-2 Anion gap [Moles/Vol] 9 mmol/L Low 10 - 20 [facility] Comment on above: Performed By: #### P SASC #### [address] [address] Calcium [Mass/Vol] 7.7 mg/dL Low 8.6 - 10.3 [facility] Comment on above: Performed By: #### P SASC #### [id number] [place] [address] Chloride [Moles/Vol] 103 mmol/L Normal 98 - 107 [facility] Comment on above: Performed By: #### P SASC #### [address] [address] Creatinine [Mass/Vol] 1.09 mg/dL Normal 0.50 - 1.30 [facility] Comment on above: Performed By: #### P SASC #### [address] [address] GFR- AM. >60 Normal >60 [facility] Comment on above: Result Comment: CALC ULATIONS OF ESTIMATED GFR ARE PERFORMED USING THE MDRD STUDY EQUATION FOR THE IDMS-TRACEABLE CREATININE METHODS. CLIN CHEM 2007;53:766-72 Performed By: #### P SASC #### [address] [address] GFR-NON AM. >60 Normal >60 [facility] Comment on above: Performed By: #### P SASC #### [address] [address] Glucose [Mass/Vol] 133 mg/dL High 74 - 99 [facility] Comment on above: Performed By: #### P SASC #### [address] [address] HCO3 (Bld) [Moles/Vol] 27 mmol/L Normal 21 - 32 [facility] Comment on above: Performed By: #### P SASC #### [address] [address] Potassium [Moles/Vol] 3.5 mmol/L Normal 3.5 - 5.3 [facility] Comment on above: Performed By: #### P SASC #### [address] [address] Sodium [Moles/Vol] 135 mmol/L Low 136 - 145 [facility] Comment on above: Performed By: #### P SASC #### [address] [address] Urea nitrogen [Mass/Vol] 22 mg/dL Normal 6 - 23 [facility] Comment on above: Performed By: #### P SASC #### [address] [address] CBCon 03-22-2021 Erythrocyte distribution width (RBC) [Ratio] 13.3 % Normal 11.5 - 14.5 [facility] Comment on above: Performed By: #### C BC #### [address] [address] Hematocrit (Bld) [Volume fraction] 36.7 % Low 41.0 - 52.0 [facility] Comment on above: Performed By: #### C BC #### [address] [address] Hemoglobin (Bld) [Mass/Vol] 12.0 g/dL Low 13.5 - 17.5 [facility] Comment on above: Performed By: #### C BC #### [address] [address] MCHC (RBC) [Mass/Vol] 32.6 g/dL Normal 32.0 - 36.0 [facility] Comment on above: Performed By: #### C BC #### [address] [address] MCV (RBC) [Entitic vol] 90 fL Normal 80 - 100 [facility] Comment on above: Performed By: #### C BC #### [address] [address] Platelets (Bld) [#/Vol] 138 10*3/uL Low 150 - 450 [facility] Comment on above: Performed By: #### C BC #### [address] [address] RBC 4.08 x10E12/L Low 4.50 - 5.90 [facility] Comment on above: Performed By: #### C BC #### [address] [address] WBC (Bld) [#/Vol] 9.0 10*3/uL Normal 4.4 - 11.3 [facility] Comment on above: Performed By: #### C BC #### [address] [address] CHEST 2 VIEW PA AND LATon CHEST 2 VIEW PA AND LAT Patient Name: ASHLEY WEINSTEIN STUDY: CHEST 2 VIEW PA AND LAT; 03/22/2021 3:00 pm INDICATION: hypoxia. COMPARISON: 07/21/2018 ACCESSION NUMBER(S): [id number] ORDERING CLINICIAN: AURELIA REYNOSO TECHNIQUE: Two views of the chest FINDINGS: Cardiomediastinal silhouette is stable. The heart is enlarged. Median sternotomy wires are in place. Interval development of a patchy opacity in the right lower lobe which could be caused by atelectasis or developing right lower lobe pneumonia. Small right pleural effusion. Left lung is clear. IMPRESSION: As above Electronically signed by: YOUSIF APONTE MD [facility] Daily Progress Note-Surgeryo n 03-22-2021 Daily Progress Note-Surgery Consult Type: subsequent visit/care Service: Surgery Subjective Data: ASHLEY WEINSTEIN is a 75 year old Male who is Hospital Day # 4 with acute cholecystitis. Abdominal pain resolved. Tolerated regular low fat diet for dinner last night. No nausea or return of pain with eating. Remains afebrile with normal WBC. Objective Data: Objective Information: T PRBPSpO2 [id number]% Date/Time03/22 7: 7: 7: 7: 7:00 Range(36.6C - 36.6C ) (72 - 75 ) (18 - 18 ) (111 - 130 )/ (56 - 67 ) (90% - 92% ) As of 21-Mar-2021 23:00:00, patient is on 2 L/min of oxygen via nasal cannula. Pain reported at 03/21 20:00: 0 = None Physical Exam by System: Constitutional: No acute distress, laying supine in bed Eyes: No scleral icterus Respiratory/Thorax: No labored breathing, on supplemental oxygen via nasal cannula Cardiovascular: NSR Gastrointestinal: Soft, non-distended, non-tender to deep palpation Extremities: No peripheral edema Neurological: Alert, oriented x3 Psychological: Normal affect Skin: No jaundice Recent Lab Results: Results: CBC: 03/22/2021 05:48 \ Hgb / \ 12.0 L / WBC Plt 9.0 138 L / Hct \ / 36.7 L \ RBC: 4.08 L MCV: 90 BMP: 03/22/2021 05:48 NA+ Cl- BUN / 135 L 103 22 / -------- Glucose --- 133 H K+ HCO3- Creat \ 3.5 27 1.09 \ Calcium : 7.7 L Anion Gap : 9 L Assessment and Plan: Code Status: Code StatusFull Code Assessment: Mr. Weinstein is a 75yo male with acute cholecystitis, improving with antibiotics. Can transition to oral antibiotics and discharge home this morning. He needs to continue to follow a low fat biliary diet. He is not particularly interested in having an interval cholecystectomy, therefore no need for scheduled surgical follow up. However, please make sure he has my office contact information so that if he changes his mind I can see him in 6-8 weeks to discuss cholecystectomy. Electronic Signatures: Kathy Duffy) (Signed 22-Mar-2021 08:32) Authored: Service, Subjective Data, Objective Data, Assessment and Plan, Note Completion Last Updated: 22-Mar-2021 08:32 by Kathy Duffy) [facility] Discharge [id number] 03-22- 021 Discharge Profile2 Discharge Orders: Anticipated Discharge Date: Anticipated Discharge [id number] Anticipated Discharge Time08:28 DNAR: DNAR Status: none Activity: activity as tolerated. May shower. Diet: Dietlow fat Additional Orders: Additional Instructions return to the er if pain worsens Provider FINAL REVIEW of Orders: Final Review: Final Review of Medication Reconciliation and Orders Completedby Physician Reviewing ProviderRyan Renee MD at 22-Mar-2021 08:32:24 Appointments: Follow-Up Appointment 01: Physician/Dept/Herbert Malik Reason for ReferralHospital Follow-up Call to Schedule in1 week Scheduled Date/[id number] 11:00 [id number] Gilles Danielson / [employer] Phone [phone] Follow-Up Appointment 02: Physician/Dept/Herbert Duffy only if needed Reason for ReferralHospital Follow-up Call to Schedule in6 weeks [id number] Natalia Danielson / [employer] Phone [phone] CommentsPlease call and schedule an appointment if Issues arise.. Electronic Signatures: Kelli Booker (UNIT SECT) (Signed 24-Mar-2021 10:54) Authored: Discharge Orders, Appointments Luda Arreola (COMPUTER PROGRAMMING PROFESSOR) (Signed 22-Mar-2021 10:08) Authored: Discharge Orders, Appointments Harris Ortiz (DO) (Signed 24-Mar-2021 10:46) Authored: Discharge Orders, Appointments Ryan Renee) (Signed 22-Mar-2021 08:32) Authored: Discharge Orders, Provider FINAL REVIEW of Orders, Appointments, Gold Form - Optoelectronics Engineer Summary Last Updated: 24-Mar-2021 10:54 by Kelli Bokoer (UNIT SECT) [facility] Laboratory - Chemistry and C hemistry - challengeon 03-22-2021 Anion gap [Moles/Vol] 9 mmol/L below low threshold 10 - 20 [facility] Work Phone: Calcium [Mass/Vol] 7.7 mg/dL below low threshold 8.6 - 10.3 [facility] Work Phone: Chloride [Moles/Vol] 103 mmol/L 98 - 107 -M edical [facility] Work Phone: CO2 [Moles/Vol] 27 mmol/L 21 - 32 [facility] Work Phone: Creatinine [Mass/Vol] 1.09 mg/dL See Below - Medical [facility] Work Phone: Comment on above: Reference Range: 0.5 0 - 1.30 Glucose [Mass/Vol] 133 mg/dL above high threshold 74 - 99 [facility] Work Phone: Potassium [Moles/Vol] 3.5 mmol/L 3.5 - 5.3 - Medical [facility] Work Phone: Sodium [Moles/Vol] 135 mmol/L below low threshold 136 - 145 -Medical [facility] Work Phone: Urea nitrogen [Mass/Vol] 22 mg/dL 6 - [facility] Work Phone: [phone] Laboratory - Hematology and Cell countson 03-22-2021 Erythrocyte distribution width (RBC) [Ratio] 13.3 % See Below [facility] Work Phone: [phone] Comment on above: Reference Range: 11. 5 - 14.5 Hematocrit (Bld) [Volume fraction] 36.7 % below low threshold See Below [facility] Work Phone: [phone] Comment on above: Reference Range: 41. 0 - 52.0 Hemoglobin (Bld) [Mass/Vol] 12.0 g/dL below low threshold See Below [facility] Work Phone: [phone] Comment on above: Reference Range: 13. 5 - 17.5 MCHC (RBC) [Mass/Vol] 32.6 g/dL See Below [facility] Work Phone: [phone] Comment on above: Reference Range: 32. 0 - 36.0 MCV (RBC) [Entitic vol] 90 fL 80 - 100 [email or web address] Work Phone: [phone] Platelets (Bld) [#/Vol] 138 10*3/uL below low threshold 150 - 450 [facility] Work Phone: [phone] RBC (Bld) [#/Vol] 4.08 {x10E12/L} below low threshold See Below [facility] Work Phone: [phone] Comment on above: Reference Range: 4.5 0 - 5.90 WBC (Bld) [#/Vol] 9.0 10*3/uL 4.4 - 11.3 [facility] [employer] Work Phone: [phone] No Panel Informationon 03-22 >60 >60 [facility] Work Phone: [phone] Comment on above: CALCULATIONS OF DENISSE MATED GFR ARE PERFORMED USING THE MDRD STUDY EQUATION FOR THE IDMS-TRACEABLE CREATININE METHODS. CLIN CHEM 2007;53:766-72 Order Reconciliationon 03-22 Order Reconciliation Page 1 Discharge Reconciliation Document Reconciliation Type: Discharge requested on behalf of Harris Ortiz (Physician) done by Harris Ortiz () Discharge - Reconciliation: 22-Mar-2021 08:30 by: Ryan Renee) Discharge - Reset to Incomplete: 24-Mar-2021 10:40 by: Harris Ortiz () Discharge - Reconciliation: 24-Mar-2021 10:42 by: Harris Ortiz () Discharge - Reset to Incomplete: 24-Mar-2021 10:43 by: Harris Ortiz () Discharge - Reconciliation: 24-Mar-2021 10:44 by: Harris Ortiz () Home Medications EnteredHOME MEDICATIONS AT DISCHARGE DateReconciliation Comment/ Additional Information amlodipine 10 mg tablet 1 tab(s) orally once a day 20-Mar-2021 05:24 amlodipine 10 mg tablet 1 tab(s) orally once a day 20-Mar-2021 05:24 amlodipine 10 mg tablet is continued as amlodipine 10 mg tablet atorvastatin 40 mg tablet 1 tab(s) orally once a day 20-Mar-2021 05:24 atorvastatin 40 mg tablet 1 tab(s) orally once a day 20-Mar-2021 05:24 atorvastatin 40 mg tablet is continued as atorvastatin 40 mg tablet duloxetine 30 mg capsule,delayed release 1 cap(s) orally 2 times a day 20-Mar-2021 05:25 duloxetine 30 mg capsule,delayed release 1 cap(s) orally 2 times a day 20-Mar-2021 05:25 duloxetine 30 mg capsule,delayed release is continued as duloxetine 30 mg capsule,delayed release finasteride 5 mg tablet 1 tab(s) orally once a day 20-Mar-2021 05:25 finasteride 5 mg tablet 1 tab(s) orally once a day 20-Mar-2021 05:25 finasteride 5 mg tablet is continued as finasteride 5 mg tablet fluticasone propionate 50 mcg/actuation nasal spray,suspension 2 spray(s) in each nostril once a day 20-Mar-2021 05:26 fluticasone propionate 50 mcg/actuation nasal spray,suspension 2 spray(s) in each nostril once a day 20-Mar-2021 05:26 fluticasone propionate 50 mcg/actuation nasal spray,suspension is continued as fluticasone propionate 50 mcg/actuation nasal spray,suspension metoprolol tartrate 25 mg tablet 1 tab(s) orally 2 times a day 20-Mar-2021 05:26 metoprolol tartrate 25 mg tablet 1 tab(s) orally 2 times a day 20-Mar-2021 05:26 metoprolol tartrate 25 mg tablet is continued as metoprolol tartrate 25 mg tablet tamsulosin 0.4 mg capsule 1 cap(s) orally once a day 20-Mar-2021 05:27 tamsulosin 0.4 mg capsule 1 cap(s) orally once a day 20-Mar-2021 05:27 tamsulosin 0.4 mg capsule is continued as tamsulosin 0.4 mg capsule triamterene 37.5 mg-hydrochlorothiazide 25 mg capsule 1 cap(s) orally once a day 20-Mar-2021 05:27 triamterene 37.5 mg-hydrochlorothiazide 25 mg capsule 1 cap(s) orally once a day 20-Mar-2021 05:27 triamterene 37.5 mg-hydrochlorothiazide 25 mg capsule is continued as triamterene 37.5 mg-hydrochlorothiazide 25 mg capsule Current OrdersDateHOME MEDICATIONS AT DISCHARGE DateReconciliation Comment/ Additional Information Albuterol 2.5 mg/ 3 mL Nebulizer Soln (PROVENTIL)DOSE = 3 mL Inhalation Every 6 Hours via Nebulizer, PRN Shortness of Breath 21-Mar-2021 15:02 Albuterol 2.5 mg/ 3 mL Nebulizer Soln is not required amLODIPine (NORVASC) TabletDOSE = 10 mg Oral Daily 20-Mar-2021 08:21 amLODIPine (NORVASC) is not required Atorvastatin Tablet (LIPITOR)DOSE = 40 mg Oral Daily 20-Mar-2021 08:21 Atorvastatin is not required Ciprofloxacin 400 mg IVPB/ Premixed Soln 200 mL (CIPRO)Every 12 HoursRecommended Infusion Time: 60 minute(s) 20-Mar-2021 00:43 Ciprofloxacin 400 mg IVPB/ Premixed Soln 200 mL is not required DULoxetine Delayed Release Capsule (CYMBALTA)DOSE = 30 mg Oral 2 Times a Day 20-Mar-2021 08:21 DULoxetine is not required Famotidine Injectable (PEPCID)DOSE = 20 mg IntraVenous Push Every 12 Hours 20-Mar-2021 00:43 Famotidine Injectable is not required Finasteride Tablet (PROSCAR)DOSE = 5 mg Oral DailyNotes from Pharmacy: Reproductive Risk- Single Nitrile Glove 20-Mar-2021 08:21 Finasteride is not required levoFLOXacin (LEVAQUIN) TabletDOSE = 750 mg Oral Every 24 Hours 23-Mar-2021 09:08 levoFLOXacin (LEVAQUIN) is not required Metoprolol Tartrate Tablet (LOPRESSOR)DOSE = 25 mg Oral 2 Times a Day 20-Mar-2021 08:21 Metoprolol Tartrate is not required metroNIDAZOLE (FLAGYL) TabletDOSE = 500 mg Oral Every 8 Hours 23-Mar-2021 09:08 metroNIDAZOLE (FLAGYL) is not required metroNIDAZOLE (FLAGYL) 500 mg IVPB/ Premixed Soln 100 mL Every 8 HoursRecommended Infusion Time: 60 minute(s) 20-Mar-2021 00:43 metroNIDAZOLE (FLAGYL) 500 mg IVPB/ Premixed Soln 100 mL is not required Morphine Injectable DOSE = 1 mg IntraVenous Push Every 4 Hours, PRN Pain - Mod (4-6) 20-Mar-2021 00:43 Morphine Injectable is not required Morphine Injectable DOSE = 2 mg IntraVenous Push Every 6 Hours, PRN Pain - Severe (7-10) 20-Mar-2021 08:09 Morphine Injectable is not required Ondansetron Injectable (ZOFRAN)DOSE = 4 mg IntraVenous Push Every 4 Hours, PRN Nausea and/or Vomiting 20-Mar-2021 00:42 Ondansetron Injectable is not required Sodium Chloride 0.9% Infus (more content not included)... Normal [facility] Radiologyon 03-22-2021 XR Chest 2 Views Normal [facility] Work Phone: CBCon 03-21-2021 Erythrocyte distribution width (RBC) [Ratio] 13.5 % Normal 11.5 - 14.5 [facility] Comment on above: Performed By: #### B MP #### [place] [address] Hematocrit (Bld) [Volume fraction] 39.9 % Low 41.0 - 52.0 [facility] Comment on above: Performed By: #### B MP #### [address] [address] Hemoglobin (Bld) [Mass/Vol] 13.1 g/dL Low 13.5 - 17.5 [facility] Comment on above: Performed By: #### B MP #### [address] [address] MCHC (RBC) [Mass/Vol] 32.8 g/dL Normal 32.0 - 36.0 [facility] Comment on above: Performed By: #### B MP #### [id number] MCV (RBC) [Entitic vol] 90 fL Normal 80 - 100 [facility] Comment on above: Performed By: #### B MP #### [id number] Platelets (Bld) [#/Vol] 117 10*3/uL Low 150 - 450 [facility] Comment on above: Performed By: #### B MP #### [address] [address] RBC 4.44 x10E12/L Low 4.50 - 5.90 [facility] Comment on above: Performed By: #### B MP #### [id number] WBC (Bld) [#/Vol] 10.7 10*3/uL Normal 4.4 - 11.3 [facility] Comment on above: Performed By: #### B MP #### [address] [address] COMPREHENSIVE PANELon 2020 Albumin [Mass/Vol] 3.0 g/dL Low 3.4 - 5.0 [facility] Comment on above: Performed By: #### P SASC #### [id number] ALP [Catalytic activity/Vol] 95 U/L Normal 33 - 136 [facility] Comment on above: Performed By: #### P SASC #### [address] [address] ALT [Catalytic activity/Vol] 37 U/L Normal 10 - 52 [facility] Comment on above: Result Comment: Jessica ents treated with Sulfasalazine may generate falsely decreased results for ALT. Performed By: #### P SASC #### [address] [address] Anion gap [Moles/Vol] 10 mmol/L Normal 10 - 20 [facility] Comment on above: Performed By: #### P SASC #### [address] [address] AST [Catalytic activity/Vol] 36 U/L Normal 9 - 39 [facility] Comment on above: Performed By: #### P SASC #### [address] [address] Bilirubin [Mass/Vol] 1.1 mg/dL Normal 0.0 - 1.2 [facility] Comment on above: Performed By: #### P SASC #### [address] [address] Calcium [Mass/Vol] 8.0 mg/dL Low 8.6 - 10.3 [facility] Comment on above: Performed By: #### P SASC #### [address] [address] Chloride [Moles/Vol] 102 mmol/L Normal 98 - 107 [facility] Comment on above: Performed By: #### P SASC #### [address] [address] Creatinine [Mass/Vol] 1.14 mg/dL Normal 0.50 - 1.30 [facility] Comment on above: Performed By: #### P SASC #### [address] [address] GFR- AM. >60 Normal >60 [facility] Comment on above: Result Comment: CALC ULATIONS OF ESTIMATED GFR ARE PERFORMED USING THE MDRD STUDY EQUATION FOR THE IDMS-TRACEABLE CREATININE METHODS. CLIN CHEM 2007;53:766-72 Performed By: #### P SASC #### [address] [address] GFR-NON AM. >60 Normal >60 [facility] Comment on above: Performed By: #### P SASC #### [address] [address] Glucose [Mass/Vol] 108 mg/dL High 74 - 99 [facility] Comment on above: Performed By: #### P SASC #### [address] [address] HCO3 (Bld) [Moles/Vol] 26 mmol/L Normal 21 - 32 [facility] Comment on above: Performed By: #### P SASC #### [address] [address] Potassium [Moles/Vol] 3.9 mmol/L Normal 3.5 - 5.3 [facility] Comment on above: Performed By: #### P SASC #### [address] [address] Protein [Mass/Vol] 5.9 g/dL Low 6.4 - 8.2 [facility] Comment on above: Performed By: #### P SASC #### [address] [address] Sodium [Moles/Vol] 134 mmol/L Low 136 - 145 [facility] Comment on above: Performed By: #### P SASC #### [address] [address] Urea nitrogen [Mass/Vol] 21 mg/dL Normal 6 - 23 [facility] Comment on above: Performed By: #### P SASC #### [address] [address] Daily Progress Note-Medicine on 03-21-2021 Daily Progress Note-Medicine Service: Medicine Subjective Data: ASHLEY WEINSTEIN is a 75 year old Male who is Hospital Day # 3. improving pain. Objective Data: Objective Information: T PRBPSpO2 [id number]/6388% Date/Time03/21 7: 7: 7: 7: 7:15 Range(36.2C - 37.8C ) (80 - 87 ) (18 - 22 ) (112 - 151 )/ (63 - 69 ) (88% - 94% ) Highest temp of 37.8 C was recorded at 03/20 15:02 Pain reported at 03/21 8:00: 0 = None Physical Exam Narrative: Physical Exam: Constitutional: Well developed, awake/alert/oriented x3, no distress, alert and cooperative Eyes: PERRL, EOMI, clear sclera ENMT: mucous membranes moist, no apparent injury, no lesions seen Head/Neck: Neck supple, no apparent injury, thyroid without mass or tenderness, No JVD, trachea midline, no bruits Respiratory/Thorax: Patent airways, CTAB, normal breath sounds with good chest expansion, thorax symmetric Cardiovascular: Regular, rate and rhythm, no murmurs, 2+ equal pulses of the extremities, normal S 1and S 2 Gastrointestinal: Nondistended, soft, mildly tender, no rebound tenderness or guarding, no masses palpable, no organomegaly, +BS, no bruits Musculoskeletal: ROM intact, no joint swelling, normal strength Extremities: normal extremities, no cyanosis edema, contusions or wounds, no clubbing Neurological: alert and oriented x3, intact senses, motor, response and reflexes, normal strength Lymphatic: No significant lymphadenopathy Psychological: Appropriate mood and behavior Skin: Warm and dry, no lesions, no rashes Medication: Medications: Continuous Medications -------- 1. Sodium Chloride 0.9% Infusion: 1000 mL IntraVenous 2. Sodium Chloride 0.9% Infusion: 1000 mL IntraVenous Scheduled Medications -------- 1. amLODIPine (NORVASC): 10 mg Oral Daily 2. Atorvastatin: 40 mg Oral Daily 3. Ciprofloxacin 400 mg IVPB/ Premixed Soln 200 mL: 200 mL IntraVenous Piggyback Every 12 Hours 4. DULoxetine: 30 mg Oral 2 Times a Day 5. Famotidine Injectable: 20 mg IntraVenous Push Every 12 Hours 6. Finasteride: 5 mg Oral Daily 7. Metoprolol Tartrate: 25 mg Oral 2 Times a Day 8. metroNIDAZOLE (FLAGYL) 500 mg IVPB/ Premixed Soln 100 mL: 100 mL IntraVenous Piggyback Every 8 Hours 9. Tamsulosin: 0.4 mg Oral Daily PRN Medications -------- 1. Morphine Injectable: 1 mg IntraVenous Push Every 4 Hours 2. Morphine Injectable: 2 mg IntraVenous Push Every 6 Hours 3. Ondansetron Injectable: 4 mg IntraVenous Push Every 4 Hours 4. Sodium Chloride 0.9% Injectable Flush: 1.5 mL IntraVenous Flush Every 8 Hours and as Needed Recent Lab Results: Results: CBC: 03/21/2021 05:46 \ Hgb / \ 13.1 L / WBC Plt 10.7 117 L / Hct \ / 39.9 L \ RBC: 4.44 L MCV: 90 CMP: 03/21/2021 05:46 NA+ Cl- BUN / 134 L 102 21 / -------- Glucose --- 108 H K+ HCO3- Creat \ 3.9 26 1.14 \ \ T Bili / \ 1.1 / AST x ---- x ALT 36 x ---- x 37 / Alk P \ / 95 \ Calcium : 8.0 L Anion Gap : 10 Albumin : 3.0 L T Protein : 5.9 L Radiology Results: Results: Impression: Limited evaluation due to extensive bowel gas.Mild gallbladder wall thickening present. Additional findings better seen on CT imaging. Echogenic shadowing structurein the region of the cystic duct is favored to represent bowel loop rather than a 2 cm cystic duct stone given lack of corresponding structure on CT imaging. Ultrasound Gallbladder [Mar 19 2021 11:08PM] Impression: 1. Acute calculus cholecystitis. Surgical evaluation is recommended. 2. Curvilinear enhancing region within the anterior liver with apparent continuity between the left portal vein and middle hepatic vein. Follow-up Doppler evaluation may be considered to evaluate for portosystemic shunt. 3. Prostatomegaly measuring 5.3 cm transverse. Nonspecific subcentimeter hypodensity within the posterior right transitional zone. Correlation with PSA is recommended. 4. Osseous spurring at the right iliac wing, possibly osteochondroma. Regions of spurring at the proximal femurs bilaterally may reflect additional osteochondromas. Correlation for multiple hereditary exostoses is recommended. Document Only: Acute cholecystitis The critical information above was relayed directly by me by telephone to Dr. Ndiaye on 03/19/2021 at 8:09 pm with readback verification. CT Abdomen and Pelvis with IV Contrast [Mar 19 2021 8:14PM] Assessment and Plan: Code Status: Code StatusFull Code Assessment: A 75-year-old male with history of hypertension, hyperlipidemia, BPH, GERD, constipation presented with acute calculus cholecystitis Plan advance to low fat Hydrate the patient gently with normal saline Antiemetics using Zofran 4 mg IV every 6 hours as needed Pain con (more content not included)... Normal [facility] Daily Progress Note-Surgeryo n 03-21-2021 Daily Progress Note-Surgery Consult Type: subsequent visit/care Service: Surgery Subjective Data: ASHLEY WEINSTEIN is a 75 year old Male who is Hospital Day # 3 with acute cholecystitis. Spoke with radiologist. No need for further work up of venous anomaly in liver, suspected congenital and no evidence of portal hypertension. Patient pain improved. No nausea. No fever. WBC normal today. Objective Data: Objective Information: T PRBPSpO2 [id number]/6992% Date/Time03/21 0:009 0:009 0:009 0:009 0:00 Range(36.2C - 37.8C ) (80 - 97 ) (18 - 20 ) (119 - 152 )/ (68 - 70 ) (92% - 94% ) Highest temp of 37.8 C was recorded at 03/20 15:02 Pain reported at 03/20 20:00: 2 = Mild Physical Exam by System: Constitutional: No acute distress, up walking in room to bathroom Eyes: No scleral icterus Respiratory/Thorax: No labored breathing, on supplemental oxygen via nasal cannula Cardiovascular: NSR, sternal scar consistent with previous cardiac surgery Gastrointestinal: Soft, non-distended, much less tender and really only minimally tender this morning Extremities: No peripheral edema Neurological: Alert, oriented x3 Psychological: Normal affect Skin: No jaundice Recent Lab Results: Results: CBC: 03/21/2021 05:46 \ Hgb / \ 13.1 L / WBC Plt 10.7 117 L / Hct \ / 39.9 L \ RBC: 4.44 L MCV: 90 CMP: 03/21/2021 05:46 NA+ Cl- BUN / 134 L 102 21 / -------- Glucose --- 108 H K+ HCO3- Creat \ 3.9 26 1.14 \ \ T Bili / \ 1.1 / AST x ---- x ALT 36 x ---- x 37 / Alk P \ / 95 \ Calcium : 8.0 L Anion Gap : 10 Albumin : 3.0 L T Protein : 5.9 L Assessment and Plan: Code Status: Code StatusFull Code Assessment: 75yo male with acute cholecystitis with delayed presentation, improving with IV antibiotics. Recommend low fat clear liquid diet. If any nausea or increased pain needs to be NPO again. If tolerates, will advance and transition to oral antibiotics. Electronic Signatures: Kathy Duffy) (Signed 21-Mar-2021 07:27) Authored: Service, Subjective Data, Objective Data, Assessment and Plan, Note Completion Last Updated: 21-Mar-2021 07:27 by Kathy Duffy) Normal [facility] Laboratory - Chemistry and C hemistry - challengeon 03-21-2021 Albumin BCP dye [Mass/Vol] 3.0 g/dL below low threshold 3.4 - 5.0 [facility] Work Phone: ALP [Catalytic activity/Vol] 95 U/L 33 - 136 [facility] Work Phone: ALT With P-5'-P [Catalytic activity/Vol] 37 U/L 10 - 52 [facility] Work Phone: [phone] Comment on above: Patients treated wit h Sulfasalazine may generate falsely decreased results for ALT. Anion gap [Moles/Vol] 10 mmol/L 10 - 20 [facility] Work Phone: AST With P-5'-P [Catalytic activity/Vol] 36 U/L 9 - 39 [facility] Work Phone: Bilirubin [Mass/Vol] 1.1 mg/dL 0.0 - 1.2 [facility] Work Phone: Calcium [Mass/Vol] 8.0 mg/dL below low threshold 8.6 - 10.3 [facility] Work Phone: Chloride [Moles/Vol] 102 mmol/L 98 - 107 [facility] Work Phone: CO2 [Moles/Vol] 26 mmol/L 21 - 32 [facility] Work Phone: Creatinine [Mass/Vol] 1.14 mg/dL See Below - [facility] Work Phone: Comment on above: Reference Range: 0.5 0 - 1.30 Glucose [Mass/Vol] 108 mg/dL above high threshold 74 - 99 -[facility] Work Phone: Potassium [Moles/Vol] 3.9 mmol/L 3.5 - 5.3 - [facility] Work Phone: Protein [Mass/Vol] 5.9 g/dL below low threshold 6.4 - 8.2 [facility] Work Phone: Sodium [Moles/Vol] 134 mmol/L below low threshold 136 - 145 [facility] Work Phone: Urea nitrogen [Mass/Vol] 21 mg/dL 6 - 23 [facility] Work Phone: [phone] Laboratory - Hematology and Cell countson 03-21-2021 Erythrocyte distribution width (RBC) [Ratio] 13.5 % See Below [facility] Work Phone: [phone] Comment on above: Reference Range: 11. 5 - 14.5 Hematocrit (Bld) [Volume fraction] 39.9 % below low threshold See Below [facility] Work Phone: [phone] Comment on above: Reference Range: 41. 0 - 52.0 Hemoglobin (Bld) [Mass/Vol] 13.1 g/dL below low threshold See Below [facility] Work Phone: [phone] Comment on above: Reference Range: 13. 5 - 17.5 MCHC (RBC) [Mass/Vol] 32.8 g/dL See Below [facility] Work Phone: [phone] Comment on above: Reference Range: 32. 0 - 36.0 MCV (RBC) [Entitic vol] 90 fL 80 - 100 [facility] Work Phone: [phone] Platelets (Bld) [#/Vol] 117 10*3/uL below low threshold 150 - 450 [facility] Work Phone: [phone] RBC (Bld) [#/Vol] 4.44 {x10E12/L} below low threshold See Below [facility] Work Phone: [phone] Comment on above: Reference Range: 4.5 0 - 5.90 WBC (Bld) [#/Vol] 10.7 10*3/uL 4.4 - 11.3 [facility] Work Phone: [phone] No Panel Informationon 03-21 >60 >60 [facility] Work Phone: [phone] Comment on above: CALCULATIONS OF DENISSE MATED GFR ARE PERFORMED USING THE MDRD STUDY EQUATION FOR THE IDMS-TRACEABLE CREATININE METHODS. CLIN CHEM 2007;53:766-72 Admission Risk Screen - Adul ton 03-20-2021 Admission Risk Screen - Adult Allergies: Allergies: penicillin: Unknown Patient Verification: New W ID Band Applied in my Departmentyes Patient Identity Verified Bypatient ID Band FULL Name, include Middle, spelling matches patient's ID used for verificationyes ID Band Matches Patient ID used for Verficationyes ID Band MRN Matches EMR MRNyes Visitor Restriction: Coronavirus Visitor Restriction: Reasonable restrictions to in-person visitors will be observed due to current coronavirus pandemic. Travel History: COVID-19 Screening Completedno exposure or symptoms Travel or Exposure Past 30 DaysNO travel to International locations in the past 30 days Ebola AlertFor Ebola-like Symptoms: Isolate Patient and Notify Provider/Demurrage Man For Contact: Notify Provider/Demurrage Man Advance Directive: Advance Directive/DNRno (1) Advance Directive Information Givenpatient/family declined (1) [place] Fall Screen: History of falling (immediate or previous)no (0) Secondary Diagnosisyes (15) Intravenous Therapy/ Heparin/Saline Lockyes (20) Gait/Transferringnormal/ bedrest/wheelchair (0) Ambulatory Aidsnone/bedrest/nurse assist (0) Mental Statusoriented to own ability (0) Score: Low risk (<25). Moderate risk (25-44). High risk (>44).35 [place] InterventionsMODERATE INTERVENTIONS: *Low Interventions Plus: * falls risk band/sticker applied to patient, *yellow non-skid footwear, *instruct to call for assistance before getting out of bed, *bed/chair/bedside commode/toilet alarms, *sensory devices/ambulatory aides available and in reach, *medications reviewed for potential side effects and care planning. Family Violence Screen: Are you or have you been threatened or abused physically, emotionally, or sexually by anyoneno Has anyone ever threatened to hurt your family or your petsno Does anyone try to keep you from having/contacting other friends or doing things outside your homeno Do you feel UNSAFE going back to the place where you are livingno Do you feel anyone has exploited or taken advantage of you financially or of your personal propertyno Clinical assessment: Are there any apparent signs of injuries/behaviors that could be related to abuse/neglectno Social Service Consult for abuse/neglect needed this visitno Functional Screen: Functional Screen: In the recent/past 2-4 weeks, patient or family have noticeda significant change in speech or language AM-PAC- Basic Mobility/Daily Activity: Patient baseline bedboundno Turning from your back to your side while in a flat bed without using bedrailsnone Moving from lying on your back to sitting on the side of a flat bed without using bedrailsnone Moving to and from bed to chair (including a wheelchair)none Standing up from a chair using your arms (e.g. wheelchair or bedside chair) none To walk in hospital roomnone Climbing 3-5 steps with railingnone Basic Mobility - Total Score24 Putting on and taking off regular lower body clothingnone Bathing (including washing, rinsing, drying)none Putting on and taking off regular upper body clothingnone Toileting, which includes using toilet, bedpan or urinalnone Taking care of personal grooming such as brushing teethnone Eating Mealsnone Daily Activity - Total Score24 Learning Assessment (Patient): Patient is Able to be Assessed for Learningyes Factors Influencing Readiness to Learnmotivation lacking Factors that Impact Ability to Learnvisual problems Devices/Methods Used to Communicateglasses Learning Preferencesverbal instruction Cultural Considerationsnone Developmental Considerationsnone Sikhism Considerationsnone Learning Assessment (Other Learner): Other learner availableno Depression Screen: During the past month, have you often been bothered by feeling down, depressed or hopelessno During the past month, have you often had little interest or pleasure in doing thingsno Have you had any thoughts of harming anyone elseno (2) [place] Suicide: Risk Screen Not Applicable/Able to Answerable to be screened In the Past Month: Have you wished you were or could go to sleep and not wake upno(2) In the Past Month: Have you had any actual thoughts of killing yourself no(2) Lifetime: Have you ever done, started to do, or prepared to do anything to end your lifeno [place] Suicide Risknegative Adult Nutrition Screen: Have you recently lost weight without tryingyes; 2-13 lb Have you been eating poorly because of a decreased appetiteyes Malnutrition Screening Tool Score2 Malnutrition Screening Tool RiskMST = 2 or more At Risk. Eating poorly and/or recent weight loss Nutrition Consult needed this visitno Can Patient Participate in Room Serviceyes Patient requires Paper Dishes/Plastic Utensilsno Pain Screen: Pain Scalenumerical 0-10 Pain Scale Educationteaching provided Current Pain Level2 = Mild Ac (more content not included)... Normal [facility] CBCon 03-20-2021 Erythrocyte distribution width (RBC) [Ratio] 13.5 % Normal 11.5 - 14.5 [facility] Comment on above: Performed By: #### B MP #### [place] [id number] Hematocrit (Bld) [Volume fraction] 40.5 % Low 41.0 - 52.0 [facility] Comment on above: Performed By: #### B MP #### [place] [id number] Hemoglobin (Bld) [Mass/Vol] 13.1 g/dL Low 13.5 - 17.5 [facility] Comment on above: Performed By: #### B MP #### [place] [id number] MCHC (RBC) [Mass/Vol] 32.4 g/dL Normal 32.0 - 36.0 [facility] Comment on above: Performed By: #### B MP #### [address] [address] MCV (RBC) [Entitic vol] 89 fL Normal 80 - 100 [facility] Comment on above: Performed By: #### B MP #### [address] [address] Platelets (Bld) [#/Vol] 128 10*3/uL Low 150 - 450 [facility] Comment on above: Performed By: #### B MP #### [address] [address] RBC 4.55 x10E12/L Normal 4.50 - 5.90 [facility] Comment on above: Performed By: #### B MP #### [address] [address] WBC (Bld) [#/Vol] 15.6 10*3/uL High 4.4 - 11.3 [facility] Comment on above: Performed By: #### B MP #### [place] [id number] COMPREHENSIVE PANELon 2020 ALBUMIN Canceled [facility] Comment on above: Order Comment: TEST COMPREHENSIVE PANEL WAS CANCELLED, 03/20/2021 08:16 dup order per Deann rn. Performed By: #### B MP #### [place] [id number] ALKALINE PHOSPHATASE Canceled Normal [facility] Comment on above: Order Comment: TEST COMPREHENSIVE PANEL WAS CANCELLED, 03/20/2021 08:16 dup order per Deann rn. Performed By: #### B MP #### [place] [id number] ALT Canceled [facility] Comment on above: Order Comment: TEST COMPREHENSIVE PANEL WAS CANCELLED, 03/20/2021 08:16 dup order per Deann rn. Result Comment: Jessica ents treated with Sulfasalazine may generate falsely decreased results for ALT. Performed By: #### B MP #### [place] [id number] ANION GAP Canceled [facility] Comment on above: Order Comment: TEST COMPREHENSIVE PANEL WAS CANCELLED, 03/20/2021 08:16 dup order per Deann rn. Performed By: #### B MP #### [place] [id number] AST Canceled [facility] Comment on above: Order Comment: TEST COMPREHENSIVE PANEL WAS CANCELLED, 03/20/2021 08:16 dup order per Deann rn. Performed By: #### B MP #### [place] [id number] BICARBONATE Canceled [facility] Comment on above: Order Comment: TEST COMPREHENSIVE PANEL WAS CANCELLED, 03/20/2021 08:16 dup order per Deann rn. Performed By: #### B MP #### [address] [address] BILIRUBIN,TOTAL Canceled [facility] Comment on above: Order Comment: TEST COMPREHENSIVE PANEL WAS CANCELLED, 03/20/2021 08:16 dup order per Deann rn. Performed By: #### B MP #### [place] [id number] CALCIUM Canceled [facility] Comment on above: Order Comment: TEST COMPREHENSIVE PANEL WAS CANCELLED, 03/20/2021 08:16 dup order per Deann rn. Performed By: #### B MP #### [place] [id number] CHLORIDE Canceled [facility] Comment on above: Order Comment: TEST COMPREHENSIVE PANEL WAS CANCELLED, 03/20/2021 08:16 dup order per Deann rn. Performed By: #### B MP #### [place] [id number] CREATININE Canceled [facility] Comment on above: Order Comment: TEST COMPREHENSIVE PANEL WAS CANCELLED, 03/20/2021 08:16 dup order per Deann rn. Performed By: #### B MP #### [place] [address] GFR- AM. Canceled [facility] Comment on above: Order Comment: TEST COMPREHENSIVE PANEL WAS CANCELLED, 03/20/2021 08:16 dup order per Deann rn. Result Comment: CALC ULATIONS OF ESTIMATED GFR ARE PERFORMED USING THE MDRD STUDY EQUATION FOR THE IDMS-TRACEABLE CREATININE METHODS. CLIN CHEM 2007;53:766-72 Performed By: #### B MP #### [place] [id number] GFR-NON AM. Canceled [facility] Comment on above: Order Comment: TEST COMPREHENSIVE PANEL WAS CANCELLED, 03/20/2021 08:16 dup order per Deann rn. Performed By: #### B MP #### [place] [id number] GLUCOSE Canceled [facility] Comment on above: Order Comment: TEST COMPREHENSIVE PANEL WAS CANCELLED, 03/20/2021 08:16 dup order per Deann rn. Performed By: #### B MP #### [place] [id number] POTASSIUM Canceled [facility] Comment on above: Order Comment: TEST COMPREHENSIVE PANEL WAS CANCELLED, 03/20/2021 08:16 dup order per Deann rn. Performed By: #### B MP #### [address] [address] SODIUM Canceled [facility] Comment on above: Order Comment: TEST COMPREHENSIVE PANEL WAS CANCELLED, 03/20/2021 08:16 dup order per Deann rn. Performed By: #### B MP #### [address] [address] TOTAL PROTEIN Canceled Normal [facility] Comment on above: Order Comment: TEST COMPREHENSIVE PANEL WAS CANCELLED, 03/20/2021 08:16 dup order per Deann rn. Performed By: #### B MP #### [place] [id number] UREA NITROGEN Canceled [facility] Comment on above: Order Comment: TEST COMPREHENSIVE PANEL WAS CANCELLED, 03/20/2021 08:16 dup order per Deann rn. Performed By: #### B MP #### [address] [address] Albumin [Mass/Vol] 3.2 g/dL Low 3.4 - 5.0 [facility] Comment on above: Performed By: #### C MP ####[address] [address] ALP [Catalytic activity/Vol] 89 U/L Normal 33 - 136 [facility] Comment on above: Performed By: #### C MP ####[address] [address] ALT [Catalytic activity/Vol] 32 U/L Normal 10 - 52 [facility] Comment on above: Result Comment: Jessica ents treated with Sulfasalazine may generate falsely decreased results for ALT. Performed By: #### C MP ####[address] [address] Anion gap [Moles/Vol] 10 mmol/L Normal 10 - 20 [facility] Comment on above: Performed By: #### C MP ####[address] [place] [address] AST [Catalytic activity/Vol] 23 U/L Normal 9 - 39 [facility] Comment on above: Performed By: #### C MP ####[address] [address] Bilirubin [Mass/Vol] 1.3 mg/dL High 0.0 - 1.2 [facility] Comment on above: Performed By: #### C MP ####[address] [address] Calcium [Mass/Vol] 8.2 mg/dL Low 8.6 - 10.3 [facility] Comment on above: Performed By: #### C MP ####[place] [id number] Chloride [Moles/Vol] 101 mmol/L Normal 98 - 107 [facility] Comment on above: Performed By: #### C MP ####[address] [address] Creatinine [Mass/Vol] 1.30 mg/dL Normal 0.50 - 1.30 [facility] Comment on above: Performed By: #### C MP ####[address] [address] GFR- AM. 65 mL/min/1.73m2 Normal >60 [facility] Comment on above: Result Comment: CALC ULATIONS OF ESTIMATED GFR ARE PERFORMED USING THE MDRD STUDY EQUATION FOR THE IDMS-TRACEABLE CREATININE METHODS. CLIN CHEM 2007;53:766-72 Performed By: #### C MP ####[address] [address] GFR-NON AM. 54 mL/min/1.73m2 Abnormal >60 [facility] Comment on above: Performed By: #### C MP ####[address] [address] Glucose [Mass/Vol] 122 mg/dL High 74 - 99 [facility] Comment on above: Performed By: #### C MP ####[address] [address] HCO3 (Bld) [Moles/Vol] 28 mmol/L Normal 21 - 32 [facility] Comment on above: Performed By: #### C MP ####[place] [id number] Potassium [Moles/Vol] 4.0 mmol/L Normal 3.5 - 5.3 [facility] Comment on above: Performed By: #### C MP ####[place] [address] Protein [Mass/Vol] 6.1 g/dL Low 6.4 - 8.2 [facility] Comment on above: Performed By: #### C MP ####[place] [address] Sodium [Moles/Vol] 135 mmol/L Low 136 - 145 [facility] Comment on above: Performed By: #### C MP ####[place] [address] Urea nitrogen [Mass/Vol] 18 mg/dL Normal 6 - 23 [facility] Comment on above: Performed By: #### C MP ####[place] [id number] CORONAVIRUS 2019 BY PCRon Lab Specimen Source Nasal, Nasopharyngeal Normal [facility] Comment on above: Performed By: #### C OV19 #### [place] [id number] SARS-CoV-2 (COVID-19) RNA TANK+probe Ql (Unsp spec) Not detected Normal Not Detected [facility] Comment on above: Result Comment: . This test has received FDA Emergency Use Authorization (EUA) and has been verified by [facility]. This test is only authorized for the duration of time that circumstances exist to justify the authorization of the emergency use of in vitro diagnostic tests for the detection of SARS-CoV-2 virus and/or diagnosis of COVID-19 infection under section 564(b)(1) of the Act, 21 U.S.C. 360bbb-3(b)(1), unless the authorization is terminated or revoked sooner. [facility] is certified under CLIA-88 as qualified to perform high complexity testing. Testing is performed in the [facility] laboratory located at [address] [place] [address]. SARS-CoV-2/Flu/RSV Multiplex Test: Fact sheet for providers: https://www.fda.gov/media/750416/download Fact sheet for patients: https://www.fda.gov/media/878172/download Performed By: #### C OV19 #### [place] [address] DATE OF SYMPTOM ONSET [YYYYMMDD]? [id number] [facility] Comment on above: Performed By: #### C OV19 #### [place] [address] Clinical Event Note-Full con sult to followon 03-20-2021 Clinical Event Note-Full consult to follow Clinical Event: Clinical Event Note: TopicFull consult to follow DetailsPatient examined this morning. Acute cholecystitis. 2 weeks of symptoms. Repeat labs pending. Had elevated bili at 1.5 on admission. Rest of plan pending repeat labs, prolonged period of symptoms prior to presentation favors non-operative management with antibiotics and interval cholecystectomy. Will re-evaluate this afternoon with definitive plan. Keep NPO and antibiotics. Electronic Signatures: Kathy Duffy) (Signed 20-Mar-2021 07:18) Authored: Clinical Event Note Last Updated: 20-Mar-2021 07:18 by Kathy Duffy) [facility] Consult-Surgeryon 03-20-2021 Consult-Surgery Service: Service: Surgery Consult: Consult requested by (Attending Name): Dr. Maria Reason: Acute cholecystitis History of Present Illness: Admission Reason: Acute cholecystitis HPI: ASHLEY WEINSTEIN is a 75 year old Male admitted overnight for acute cholecystitis. He is somewhat of a difficult historian in that he speaks in tangents and difficult to give yes/no answers. He reports coming to the ED last night because he has not had a bowel movement in over a week. He has associated right sided abdominal pain. He has not been feeling well for 2 weeks. He denies fevers, sweats or chills. He denies nausea or vomiting. He has decreased appetite since onset of pain. He denies yellowing of the skin or eyes or dark colored urine. He has no prior abdominal surgery. He has a history of open heart surgery in 2010. He denies having any chest pain or shortness of breath since time of that surgery. In the ED, CT scan showed a significantly inflamed gallbladder with a stone in the cystic duct. WBC was 19. Tbili was 1.5, although he had no biliary dilation. He had a RUQ US which also showed acute cholecystitis with wall measuring 5mm thick, but normal CBD caliber of 4mm. He was started on antibiotics. WBC has come down to 15. Tbili has come down to 1.3. He continues to have pain. Review Family/Social History and ROS: Review Family/Social History and ROS: Medical History: HTN BPH Hyperlipidema GERD Sleep apnea Surgical History: No prior abdominal surgery open heart surgery unknown details, in 2010 Family History: Non-contributory to presenting illness Social History: Denies smoking, alcohol and drug use ROS: Constitutional: no fever, sweats, and chills Cardiovascular: No chest pain Respiratory: No cough or shortness of breath Gastrointestinal: +abdominal pain, constipation (since relieve and now with diarrhea) Genitourinary: no dark colored urine Musculoskeletal: no weakness or swelling Integumentary: no jaundice Neurological: no confusion Endocrine: no heat or cold intolerance Heme/Lymph: no easy bruising or bleeding Allergies: penicillin: Unknown Objective: Physical Exam by System: Constitutional: No acute distress, converses pleasantly but speaks in tangents Eyes: No scleral icterus Respiratory/Thorax: No labored breathing, on supplemental oxygen via nasal cannula Cardiovascular: NSR, sternal scar consistent with previous cardiac surgery Gastrointestinal: Soft, non-distended, tender to palpation in right mid and lower abdomen, no surgical scars, no peritonitis Extremities: No peripheral edema Neurological: Alert, oriented x3 Psychological: Normal affect Skin: No jaundice Recent Lab Results: Results: I have reviewed these laboratory results: Comprehensive Metabolic Panel Trending View [id number] 07:20:00 19-Mar-2021 17:14:00 Glucose, Rilrw030 H 139 H NA135 L 134 L K4.0 4.0 CL101 96 L Bicarbonate, Serum28 29 Anion Gap, Serum10 13 BUN18 18 CREAT1.30 1.28 GFR-Non Fbwemkuk64 A 55 A GFR- Hiqtougu92 67 Calcium, Serum8.2 L 8.9 ALB3.2 L 3.5 ALKP89 95 T Pro6.1 L 6.6 T Bili1.3 H 1.5 H Alanine Aminotransferase, Serum32 32 Aspartate Transaminase, Serum23 28 Complete Blood Count 20-Mar-2021 07:20:00 ResultValue White Blood Cell Count 15.6 H Red Blood Cell Count 4.55 HGB 13.1 L HCT 40.5 L MCV 89 MCHC 32.4 PLT 128 L RDW-CV 13.5 Complete Blood Count + Differential 19-Mar-2021 17:14:00 ResultValue White Blood Cell Count 19.6 H Red Blood Cell Count 5.04 HGB 14.7 HCT 44.2 MCV 88 MCHC 33.2 PLT 153 RDW-CV 13.1 Differential Comment SEE MANUAL DIFF Radiology Results: Results: I have reviewed this radiology result: Impression: Limited evaluation due to extensive bowel gas. Mild gallbladder wall thickening present. Echogenic shadowing structure in the region of the cystic duct is favored to represent bowel loop rather than a 2 cm cystic duct stone given lack of corresponding structure on CT imaging. Ultrasound Gallbladder [Mar 19 2021 11:08PM] Impression: 1. Acute calculus cholecystitis. Surgical evaluation is recommended. 2. Curvilinear enhancing region within the anterior liver with apparent continuity between the left portal vein and middle hepatic vein. Follow-up Doppler evaluation may be considered to evaluate for portosystemic shunt. 3. Prostatomegaly measuring 5.3 cm transverse. Nonspecific subcentimeter hypodensity within the posterior right transitional zone. Correlation with PSA is recommended. 4. Osseous spurring at the right iliac wing, possibly osteochondroma. Regions of spurring at the proximal femurs bilaterally may reflect additional osteochondromas. Correlation for multiple hereditary exostoses is recommended. CT Abdomen and Pelvis with IV Contrast [Mar 19 2021 8:14PM] Assessment: Mr. Squires (more content not included)... Normal [facility] Covid 19 Resultson 1 SARS-CoV-2 (COVID-19) RNA TANK+probe Ql (Unsp spec) NEGATIVE COVID-19 Test Coronaviruses are common world-wide and are the cause of many common colds. SARS-COV2 is a new coronavirus that began circulating worldwide in 2019 so we are calling it COVID-19. It has been estimated that four out of five patients with COVID-19 will recover at home without the need for medical attention. Symptoms of COVID-19 may include cough, fever, shortness of breath, loss of taste or smell and other flu-like symptoms including chills, sore muscles, sore throat, and headache. Severe illness is more common in older people and people with other health problems such as high blood pressure, obesity, and immune system problems. If the test is positive, you have COVID-19. You will be contacted by the ordering physicians office and instructed to remain on home isolation, in accordance with CDC guidelines. You may also be contacted by the [facility] to see if any of your close contacts may have been exposed to the virus and need to quarantine. If the test is negative, you likely do not have COVID-19 at this time, but you still may have a different illness that can spread to other people (like Influenza, or the Flu) and could still be at risk for getting COVID-19. We recommend that you stay away from other people to limit the spread of illness until your symptoms are improving and you are fever-free for 24 hours without the use of fever lowering medications such as acetaminophen or ibuprofen. No test is 100% accurate so if you are still concerned you may have COVID-19, talk to your doctor about the need to continue to stay away from others. Medicines Unless your provider told you not to use the following: Acetaminophen (Tylenol and others) is generally safe. Anti-inflammatory medications, such as Ibuprofen (Advil or Motrin) or Naproxen (Aleve) can also be used. Oztf-upu-twnugsw cough and cold medicines can be used according to the instructions on the package. Some vjsu-grz-ffvephy medicines also contain acetaminophen. Make sure you are not taking more than your recommended dose. For those not hospitalized, there is no specific treatment available for this illness. Antibiotics do not treat Coronaviruses. Follow-Up Follow up with your doctor by scheduling a virtual visit or consider follow-up at one of our urgent care fever clinics. If you are having difficulty breathing, or are very weak and having difficulty standing, this is a medical emergency. Call 911 or have someone take you to the nearest emergency room immediately. If possible, wear a facemask. Additional guidance from the CDC for patients who tested POSITIVE for COVID-19 How to isolate: Isolate yourself in a specific room at home and limit your contact with others. Use a separate bathroom from other members of the household, when possible. Leave home only to get essential medical care. Do not go to work, school or public areas. Avoid using public transportation, ride-sharing, or taxis. Restrict contact with pets and other animals. If you must care for your pet or be around animals while you are sick, wash your hands before and after your interaction and wear a facemask. Make sure that shared spaces in the home have good airflow, such as by an air conditioner or an opened window, weather permitting. Personal Hygiene Procedures: Wear a face mask when in the same room as other people or pets. If a face mask interferes with your breathing, others should wear a mask when sharing space with you. Frequent hand-washing: wash your hands with soap and water for at least 20 seconds. If soap and water are not available, use alcohol-based hand promotions producer. Avoid touching your eyes, nose, and mouth with unwashed hands. Household Hygiene Procedures: Avoid sharing personal household items such as dishes, glassware, cups, eating utensils, towels or bedding with other people or pets in your home. After use, these items should be washed with soap and hot water. Disinfect all high-touch surfaces every day with antibacterial cleaning solutions such as Lysol wipes, bleach, cleansers, etc. High-touch surfaces include tabletops, doorknobs, bathroom fixtures, toilets, phones, keyboards, tablets and bedside tables. Immediately clean any surfaces that may have blood, poop or body fluids on them, using antibacterial cleaning solutions such as Lysol wipes, bleach, cleansers, etc. If clothing or bedding come into contact with blood, poop or body fluids, they should be washed immediately. Follow the directions on the laundry detergent and clothing labels but hot water is recommended when possible. Stopping home isolation precautions: If possible, consult your doctor before stopping home isolation precautions. According to the CDC, you can discontinue home isolation precautions when you have met both of these criteria: Your fever and respiratory symptoms have been gone for 24 archie (more content not included)... [facility] Discharge Planning [id number] 0 03-20-2021 Discharge Planning Note2 Discharge Planning: Needs Prior to Discharge (ex. 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 Permission given to speak in front of . Address, telephone, and primary contact confirmed. patient denies problems obtaining/affording medications, takes as prescribed, understands reasons for use and possible side effects. Pt NPO, here for ABD pain, consult for . From single story home with , manages well with 2 steps to enter home. Independent in all ADL's and IADL's, no falls or use of assistive devices. Denies further needs or help at home. Nursing [facility] here 24. Plan to d/c home with no other anticipated needs. CT will follow. Mari Shane RN- TCC 03-21-21 1130- Care Transition Note: Met with pt in room, role of TCC explained. Pt possible d/c today, to try and wean oxygen. Pt confirms that his paln is to return home without other needs or services, that he can manage his health at home. Nursing [facility] 22, Plan to d/c home with no other anticipated needs. Mari Shane RN- TCC 03/24/2021 1005 Care Transitions - Social Work, Brief Note: Pt reviewed in care rounds mtg this morning. Pt likely to d/c home today. No CT needs foreseen at this time. CT available upon request. 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 Home Medications Review Status for Reconciliation: Complete Med Status: Patient Currently Takes Medications Drug Name: amlodipine 10 mg tablet Instructions: 1 tab(s) orally once a day Drug Name: atorvastatin 40 mg tablet Instructions: 1 tab(s) orally once a day Drug Name: duloxetine 30 mg capsule,delayed release Instructions: 1 cap(s) orally 2 times a day Drug Name: finasteride 5 mg tablet Instructions: 1 tab(s) orally once a day Drug Name: fluticasone propionate 50 mcg/actuation nasal spray,suspension Instructions: 2 spray(s) in each nostril once a day Drug Name: metoprolol tartrate 25 mg tablet Instructions: 1 tab(s) orally 2 times a day Drug Name: tamsulosin 0.4 mg capsule Instructions: 1 cap(s) orally once a day Drug Name: triamterene 37.5 mg-hydrochlorothiazide 25 mg capsule Instructions: 1 cap(s) orally once a day Drug Name: ciprofloxacin 500 mg oral tablet Instructions: 1 tab(s) orally 2 times a day Drug Name: Flagyl 500 mg oral tablet Instructions: 1 tab(s) orally 3 times a day Medications DeliveredCipro, Flagyl Medications Delivered Topatient Delivery Date/[id number]-Dbm-9677 10:17 Medications Reviewedall medications including Cipro & Flagyl Education TopicADR counseling; dosage, frequency, storage; medication indication; medication interactions; missed dose explanation Learnerpatient; significant other Barriers to Learningnone Methodverbal; written Outcome Evaluation2=meets goals/outcomes Additional NotesI met with and discussed all home-going medications with the patient. We discussed the following brand/generic name, reason for use, last dose taken, when to take next dose and any potential side effects. Written literature was provided for each medication and sent home with the patient. New medications - Flagyl - warned about no alcohol and taste disturbance. Stressed importance of finishing medication. educated pt on side effects of levaquin/cipro/avelox, probiotic/supplement use, sxs c. diff and photosensitivity. Avoid taking same time as dairy, calcium, iron, antacids. Stressed importance of finishing medication. Electronic Signatures: Vickey Sullivan ([facility]) (Signed 22-Mar-2021 10:19) Authored: Discharge Meds Last Updated: 22-Mar-2021 10:19 by Vickey SullivanT[facility]) 03/22/21 3pm Daryl VALENCIA RN TCC Spoke with unit charge nurse and previously indicated possible discharge today is being reassessed and his o2 needs are fluctuating and they are continuing to monitor for now. maddie 03/23/21 2 pm. Daryl VALENCIA RN TCC IN AM medical team rounds and huddle this am it was indicated by medicine that patient is currently at 1 liter at rest and 2.5 when up and moving. patient had new onset of abrupt confusion yesterday afternoon and they took patient for chest film which demonstrated + pneumonia. and they have started several ivpb antibodics . plan originally for this patient was for home. maddie Assessment: Discharge Planning Assessmen (more content not included)... Normal [facility] Laboratory - Chemistry and C hemistry - challengeon 03-20-2021 Albumin BCP dye [Mass/Vol] 3.2 g/dL below low threshold 3.4 - 5.0 -[employer] [facility] Work Phone: ALP [Catalytic activity/Vol] 89 U/L 33 - 136 -[employer] [facility] Work Phone: ALT With P-5'-P [Catalytic activity/Vol] 32 U/L 10 - 52 [employer] [facility] Work Phone: Comment on above: Patients treated wit h Sulfasalazine may generate falsely decreased results for ALT. Anion gap [Moles/Vol] 10 mmol/L 10 - 20 - [employer] [facility] Work Phone: AST With P-5'-P [Catalytic activity/Vol] 23 U/L 9 - 39 -[employer] [facility] Work Phone: Bilirubin [Mass/Vol] 1.3 mg/dL above high threshold 0.0 - 1.2 -[employer] [facility] Work Phone: Calcium [Mass/Vol] 8.2 mg/dL below low threshold 8.6 - 10.3 -[employer] [facility] Work Phone: Chloride [Moles/Vol] 101 mmol/L 98 - 107 [facility]AG [facility] Work Phone: CO2 [Moles/Vol] 28 mmol/L 21 - 32 -[facility] Work Phone: [phone] Creatinine [Mass/Vol] 1.30 mg/dL See Below [facility] Work Phone: [phone] Comment on above: Reference Range: 0.5 0 - 1.30 Glucose [Mass/Vol] 122 mg/dL above high threshold 74 - 99 -[facility] Work Phone: [phone] Potassium [Moles/Vol] 4.0 mmol/L 3.5 - 5.3 - [facility] Work Phone: [phone] Protein [Mass/Vol] 6.1 g/dL below low threshold 6.4 - 8.2 [facility] Work Phone: [phone] Sodium [Moles/Vol] 135 mmol/L below low threshold 136 - 145 -[facility] Work Phone: [phone] Urea nitrogen [Mass/Vol] 18 mg/dL 6 - 23 -[facility] Work Phone: [phone] Laboratory - Hematology and Cell countson 03-20-2021 Erythrocyte distribution width (RBC) [Ratio] 13.5 % See Below [facility] Work Phone: [phone] Comment on above: Reference Range: 11. 5 - 14.5 Hematocrit (Bld) [Volume fraction] 40.5 % below low threshold See Below [facility] Work Phone: [phone] Comment on above: Reference Range: 41. 0 - 52.0 Hemoglobin (Bld) [Mass/Vol] 13.1 g/dL below low threshold See Below [facility] Work Phone: [phone] Comment on above: Reference Range: 13. 5 - 17.5 MCHC (RBC) [Mass/Vol] 32.4 g/dL See Below [facility] Work Phone: [phone] Comment on above: Reference Range: 32. 0 - 36.0 MCV (RBC) [Entitic vol] 89 fL 80 - 100 [facility] Work Phone: Platelets (Bld) [#/Vol] 128 10*3/uL below low threshold 150 - 450 [employer] [facility] Work Phone: RBC (Bld) [#/Vol] 4.55 {x10E12/L} See Below [facility] Work Phone: Comment on above: Reference Range: 4.5 0 - 5.90 WBC (Bld) [#/Vol] 15.6 10*3/uL above high threshold 4.4 - 11.3 [employer] [facility] Work Phone: No Panel Informationon 03-20 65 {mL/min/1.73m2} >60 [employer] [facility] Work Phone: Comment on above: CALCULATIONS OF DENISSE MATED GFR ARE PERFORMED USING THE MDRD STUDY EQUATION FOR THE IDMS-TRACEABLE CREATININE METHODS. CLIN CHEM 2007;53:766-72 54 {mL/min/1.73m2} Abnormal >60 [employer] [facility] Work Phone: Nutrition Therapy-Assessment on 03-20-2021 Nutrition Therapy-Assessment Assessment Subjective/Objective: Note Type: Assessment Note Authored by: Registered Dietitian Automatic Fancy Machine Operator Pager Number: Doc Halo Nutrition Note: The patient is a 75 year old Male with history of hypertension, hyperlipidemia, BPH, GERD, constipation presented with acute calculus cholecystitis. Nutrition assessment completed today for an MST score of 2 for 2-13lb weight loss and eating poorly. The pt is currently NPO as recommended by surgery. IVF: Sodium Chloride 0.9% @ 75mL/hr = 1800 mL volume/24 hours. Pt to advance to Clear Liquids when cleared by surgery. MANAGER ZONE consult pending. Pt denies chewing or swallowing difficulty. Pt was resting in bed with his spouse at bedside. Pt reports decreased appetite and intakes 2-3 days [employer] 2/2 pain. Pt with 2 weeks of constipation and pain [employer]. Pt with bowel movement today. Suspect some weight loss with decreased intakes. UBW ~197lb. Reviewed EMR wt hx. Insignificant weight loss of 4.2% in ~4 months noted. Pt with weight fluctuations per hx. Pt refused NFPA. No wasting upon visual assessment noted. Pt agreed to trial Ensure Clear (240kcal and 8g protein each) 2x/day with breakfast and dinner upon diet advancement to help meet estimated nutrient needs. Pt with suspected further weight loss while NPO. Pt and spouse requested diet education. Provided education on Gallbladder Nutrition Therapy, Fat-Restricted Nutrition Therapy and High-Fiber Nutrition Therapy. See details below. Will continue to follow the pt, monitor intakes and tolerance of meals and nutritional supplements upon diet advancement, and adjust interventions as appropriate. Objective Information: T PRBPSpO2 Value36.62273030/6894% Date/Time03/20 7: 7: 7: 7: 7:27 Range(36.7C - 37.7C ) (80 - 111 ) (16 - 18 ) (132 - 161 )/ (60 - 89 ) (85% - 98% ) As of 20-Mar-2021 00:50:00, patient is on 2 L/min of oxygen via nasal cannula. Highest temp of 37.7 C was recorded at 03/19 15:54 Pain reported at 03/20 8:18: 7 = Severe Weights 03/20 0:45: Weight in kg (Weight (kg)) 89.1 03/20 0:45: Weight in lbs ((lbs)) 196.4 03/20 0:45: BMI (kg/m2) (BMI (kg/m2)) 33.742 ---- Intake and Output ----- Mn/Dy/[facility]Out[facility] Mar 20, 2021 6:00 [id number] The Intake and Output Totals for the last 24 hours are: IntakeOutputNet 400nullnull Intake Output IV Fluids 400 mL Height/Weight: Height in cm: 162.5 centimeter(s) Weight (kg): 89.1 BMI (kg/m2): 33.742 square meter Weight history/ % weight change: [facility] weight history: 11/22/20: 205lb (insignificant weight loss of 4.2%) 08/25/20: 204.31lb 07/24/20: 201lb 06/21/20: 199.06lb 05/24/20: 202.06lb 04/21/20: 197.19lb 04/07/20: 199.25lb Suspect some weight loss with decreased intakes. UBW ~197lb. Reviewed EMR wt hx. Insignificant weight loss of 4.2% in ~4 months noted. Pt with weight fluctuations per hx. Recent Lab Results: Results: I have reviewed these laboratory results: Comprehensive Metabolic Panel Trending View [id number] 07:20:00 19-Mar-2021 17:14:00 Glucose, Zqiwn900 H 139 H NA135 L 134 L K4.0 4.0 CL101 96 L Bicarbonate, Serum28 29 Anion Gap, Serum10 13 BUN18 18 CREAT1.30 1.28 GFR-Non Cmthnvbj33 A 55 A GFR- Oyklbkhx09 67 Calcium, Serum8.2 L 8.9 ALB3.2 L 3.5 ALKP89 95 T Pro6.1 L 6.6 T Bili1.3 H 1.5 H Alanine Aminotransferase, Serum32 32 Aspartate Transaminase, Serum23 28 Current Active Medications/PN: Sodium Chloride 0.9% Injectable Flush, via Peripheral Line Volume = 1.5 mL IntraVenous Flush Every 8 Hours and as Needed, 19-Mar-2021 Ondansetron Injectable, (ZOFRAN) DOSE = 4 mg IntraVenous Push Every 4 Hours, PRN Nausea and/or Vomiting, 20-Mar-2021 Famotidine Injectable, (PEPCID) DOSE = 20 mg IntraVenous Push Every 12 Hours, 20-Mar-2021 Morphine Injectable, DOSE = 1 mg IntraVenous Push Every 4 Hours, PRN Pain - Mod (4-6), 20-Mar-2021 metroNIDAZOLE (FLAGYL) 500 mg IVPB/ Premixed Soln 100 mL, Every 8 Hours Recommended Infusion Time: 60 minute(s), 20-Mar-2021 Morphine Injectable, DOSE = 2 mg IntraVenous Push Every 6 Hours, PRN Pain - Severe (7-10), 20-Mar-2021 amLODIPine (NORVASC), Tablet DOSE = 10 mg Oral Daily, 20-Mar-2021 Atorvastatin, Tablet (LIPITOR) DOSE = 40 mg Oral Daily, 20-Mar-2021 DULoxetine, Delayed Release Capsule (CYMBALTA) DOSE = 30 mg Oral 2 Times a Day, 20-Mar-2021 Finasteride, Tablet (PROSCAR) DOSE = 5 mg Oral Daily Notes from Pharmacy: Reproductive Risk- Single Nitrile Glove, 20-Mar-2021 Metoprolol Tartrate, Tablet (LOPRESSOR) DOSE = 25 mg Oral 2 Times a Day, 20-Mar-2021 Tamsulosin, Capsule (FLOMAX) DOSE = 0.4 mg Oral Daily, 20-Mar-2021 Ciprofloxacin 400 mg IVPB/ Premixed Soln 200 mL, (CIPRO) Every 12 Hours Recommended Infusion Time: 60 minute(s), 20-Mar-2021 Sodium Chloride 0.9% Infusion, IV Bag Volume = 1,000 mL Run at: 150 mL/hr IntraVenous , 19-Mar-2021 (more content not included)... Normal [facility] Order Reconciliationon 03-20 Order Reconciliation Page 1 Admission Reconciliation Document Reconciliation Type: ED to Observation requested on behalf of Tan Maria (Physician) done by Tan Maria) ED to Observation - Reconciliation: 20-Mar-2021 00:45 by: Tan Maria) ED to Observation - AutoLinked: 20-Mar-2021 00:45 by: Tan Maria) ED to Observation - Reset to Incomplete: 20-Mar-2021 08:20 by: Tan Maria) ED to Observation - Reconciliation: 20-Mar-2021 08:21 by: Tan Maria) Home MedicationsEnteredLast Dose TakenReconciled with current Order Reconciliation Comment/ Additional Information amlodipine 10 mg tablet 1 tab(s) orally once a [id number] amLODIPine (NORVASC) TabletDOSE = 10 mg Oral Dailyamlodipine 10 mg tablet continued as the inpatient order amLODIPine (NORVASC) atorvastatin 40 mg tablet 1 tab(s) orally once a [id number] Atorvastatin Tablet (LIPITOR)DOSE = 40 mg Oral Dailyatorvastatin 40 mg tablet continued as the inpatient order Atorvastatin duloxetine 30 mg capsule,delayed release 1 cap(s) orally 2 times a day 20-Mar-2021 DULoxetine Delayed Release Capsule (CYMBALTA)DOSE = 30 mg Oral 2 Times a Dayduloxetine 30 mg capsule,delayed release continued as the inpatient order DULoxetine finasteride 5 mg tablet 1 tab(s) orally once a [id number] Finasteride Tablet (PROSCAR)DOSE = 5 mg Oral Dailyfinasteride 5 mg tablet continued as the inpatient order Finasteride fluticasone propionate 50 mcg/actuation nasal spray,suspension 2 spray(s) in each nostril once a [id number] Reviewed and Held metoprolol tartrate 25 mg tablet 1 tab(s) orally 2 times a [id number] Metoprolol Tartrate Tablet (LOPRESSOR)DOSE = 25 mg Oral 2 Times a Day metoprolol tartrate 25 mg tablet continued as the inpatient order Metoprolol Tartrate tamsulosin 0.4 mg capsule 1 cap(s) orally once a [id number] Tamsulosin Capsule (FLOMAX)DOSE = 0.4 mg Oral Dailytamsulosin 0.4 mg capsule continued as the inpatient order Tamsulosin triamterene 37.5 mg-hydrochlorothiazide 25 mg capsule 1 cap(s) orally once a [id number] Reviewed and Held Additional Current Orders Ciprofloxacin 400 mg IVPB/ Premixed Soln 200 mL (CIPRO)Every 12 HoursRecommended Infusion Time: 60 minute(s) Famotidine Injectable (PEPCID)DOSE = 20 mg IntraVenous Push Every 12 Hours metroNIDAZOLE (FLAGYL) 500 mg IVPB/ Premixed Soln 100 mL Every 8 HoursRecommended Infusion Time: 60 minute(s) Morphine Injectable DOSE = 1 mg IntraVenous Push Every 4 Hours, PRN Pain - Mod (4-6) Morphine Injectable DOSE = 2 mg IntraVenous Push Every 6 Hours, PRN Pain - Severe (7-10) Ondansetron Injectable (ZOFRAN)DOSE = 4 mg IntraVenous Push Every 4 Hours, PRN Nausea and/or Vomiting Sodium Chloride 0.9% Infusion IV Bag Volume = 1,000 mL Run at: 150 mL/hr IntraVenous Sodium Chloride 0.9% Infusion IV Bag Volume = 1,000 mL Run at: 75 mL/hr IntraVenous Sodium Chloride 0.9% Injectable Flush via Peripheral LineVolume = 1.5 mL IntraVenous Flush Every 8 Hours and as Needed Normal [facility] Patient Profile - Adult v2on 03-20-2021 Patient Profile - Adult v2 Profile: Initial Info: How to be Addressedhillard Spoken Language PreferredEnglish (1) Stated Reason for Admissionpain in the right side Primary Contact Name and NumberSharon [phone] Wants Family/Rep Notified of Admissionno Notify PCPdo not notify PCP Informed of Patient Visiting Rightsyes Limitations on Visitors/Phone [facility] Employment Statusretired Current or Previous Servicenone Patient Belongingsremains with patient Patient Belongings Remaining with Patientcell phone/electronics; jewelry; clothing Medications Brought to Hospitalno General Health: Weight in kg89.1 kilogram(s)(2) Weight in nku945.4 pound(s) Weight Methodactual (measured) Scale Typebed Height in cm162.5 centimeter(s) Height in feet5 feet(2) Height in inches4 inch(es)(2) Height Methodstated BMI (kg/m2)33.742 square meter RSP Based Care: How would you like to participate in your caredo what you say What is the number one concern for you during this hospitalizationgetting better and going home What is the most important thing we can do to support you during this hospitalizationdo your job Is there anything we need to know to best care for youno not really Substance: Smoking Statusnever smoker (3) Alcohol Usedenies(3) Drug Usedenies (3) Health Mgmt: Symptoms/Conditions Managed at Homecardiovascular; musculoskeletal; respiratory Cardiovascular Symptoms/Conditionshyper tension; history of open heart surgery Cardiovascular Management Strategiesmedication therapy Cardiovascular Managementmanaged Musculoskeletal Symptoms/Conditionscarpo l tunnel Musculoskeletal Managementmanaged Respiratory Symptoms/Conditionssleep apnea Respiratory Management StrategiesCPAP Respiratory Managementmanaged Barriers to Managing Healthnone Relationship/Environ: Resource/Environmental Concernsnone Primary Source of Support/Comfortspouse Lives Withspouse Living Arrangementshouse Services Anticipated at Transitionnone Anticipated Transition Tohome Significant IndicatorsComplete Information Review: Allergies, Home Meds and Significant Events have been Reviewed and Verified with Patient/Familyno ALLERGY, INTOLERANCE, ADVERSE EVENT: Allergies: penicillin: Drug, Unknown, Active Electronic Signatures: Myla Guidry (RAZA) (Signed 20-Mar-2021 00:55) Authored: Initial Info, General Health, RSP Based Care, Substance, Health Mgmt, Relationship/Environ, Additional Information Last Updated: 20-Mar-2021 00:55 by Myla Guidry (RN) References: 1. Data Referenced From Triage - ED 19-Mar-2021 15:54 2. Data Referenced From 1. Vital Signs 19-Mar-2021 15:54 3. Data Referenced From Risk Screen - Adult Emergency 19-Mar-2021 16:00 Normal [facility] Provider Note - ED Care Majano kath 03-20-2021 Provider Note - ED Care Transition ED Care Transition: Chart Review: RESULTS/VITAL SIGNS RESULTS: Recent Lab Results: I have reviewed these laboratory results: Lactate, Level Trending View [id number] 20:57:00 19-Mar-2021 17:14:00 Lactate, Level1.2 2.4 H Complete Blood Count + Differential 19-Mar-2021 17:14:00 ResultValue White Blood Cell Count 19.6 H Red Blood Cell Count 5.04 HGB 14.7 HCT 44.2 MCV 88 MCHC 33.2 PLT 153 RDW-CV 13.1 Differential Comment SEE MANUAL DIFF Comprehensive Metabolic Panel 19-Mar-2021 17:14:00 ResultValue Glucose, Serum 139 H NA 134 L K 4.0 CL 96 L Bicarbonate, Serum 29 Anion Gap, Serum 13 BUN 18 CREAT 1.28 GFR-Non 55 A GFR- 67 Calcium, Serum 8.9 ALB 3.5 ALKP 95 T Pro 6.6 T Bili 1.5 H Alanine Aminotransferase, Serum 32 Aspartate Transaminase, Serum 28 RBC Morphology 19-Mar-2021 17:14:00 ResultValue Red Blood Cell Morphology NORMAL Manual Differential Panel 19-Mar-2021 17:14:00 ResultValue % Seg Neutrophil 90.0 % Band Neutrophil 2.0 % Lymphocyte 3.0 % Monocyte 1.0 % Eosinophil 0.0 % Basophil 0.0 % Lymph-Atypical 4.0 Absolute Neutrophil Count (ANC) 18.03 H Seg Neutrophil Count 17.64 H Band Neutrophil Count 0.39 Lymphocyte, Count 0.59 L Monocyte, Count 0.20 Eosinophil, Count 0.00 Basophil, Count 0.00 Lymph Atypical, Count 0.78 H Lipase, Serum 19-Mar-2021 17:14:00 ResultValue Lipase, Serum 21 Urinalysis 19-Mar-2021 16:04:00 ResultValue Color, Urine Nika Reference Range: STRAW,YELLOW Appearance, Urine HAZY Specific Meridian, Urine 1.021 pH, Urine 5.0 Protein, Urine 100(2+) A Glucose, Urine NEGATIVE Blood, Urine SMALL(1+) A Ketones, Urine NEGATIVE Bilirubin, Urine NEGATIVE Urobilinogen, Urine <2.0 Nitrite, Urine Negative Leukocyte Esterase, Urine NEGATIVE Urinalysis, Microscopic 19-Mar-2021 16:04:00 ResultValue White Cells 2 Red Blood Cells <1 Epithelial Cells, Squamous 1 Mucous 1+ Granular Casts 2+ A Radiology Results: Impression: Limited evaluation due to extensive bowel gas.Mild gallbladder wall thickening present. Additional findings better seen on CT imaging. Echogenic shadowing structurein the region of the cystic duct is favored to represent bowel loop rather than a 2 cm cystic duct stone given lack of corresponding structure on CT imaging. Ultrasound Gallbladder [Mar 19 2021 11:08PM] Impression: 1. Acute calculus cholecystitis. Surgical evaluation is recommended. 2. Curvilinear enhancing region within the anterior liver with apparent continuity between the left portal vein and middle hepatic vein. Follow-up Doppler evaluation may be considered to evaluate for portosystemic shunt. 3. Prostatomegaly measuring 5.3 cm transverse. Nonspecific subcentimeter hypodensity within the posterior right transitional zone. Correlation with PSA is recommended. 4. Osseous spurring at the right iliac wing, possibly osteochondroma. Regions of spurring at the proximal femurs bilaterally may reflect additional osteochondromas. Correlation for multiple hereditary exostoses is recommended. Document Only: Acute cholecystitis The critical information above was relayed directly by me by telephone to Dr. Ndiaye on 03/19/2021 at 8:09 pm with readback verification. CT Abdomen and Pelvis with IV Contrast [Mar 19 2021 8:14PM] VITAL SIGNS: T PRBP SpO2O2(LPM) %FiO2 Method 19-Mar-2021 22:00:[id number]/60 95 supplemental O2 19-Mar-2021 21:00:00-9820302/62 94 supplemental O2 19-Mar-2021 20:00:00-8915098/65 95 supplemental O2 19-Mar-2021 19:25:00-7419069/89 94 supplemental O2 19-Mar-2021 18:00:00-2280955/72 92 supplemental O2 19-Mar-2021 17:00:00-9364489/76 94 19-Mar-2021 15:54:00-37.720885729/75 98 room air, no respiratory support MEDICAL DECISION MAKING/ED COURSE MDM/ED COURSE: Patient CT scan consistent with acute cholecystitis. He has an elevated white blood cell count. He is penicillin allergic so was started on Cipro and Flagyl. Ultrasound was unremarkable for any additional findings. We will admit to the hospitalist service. I did discuss the case with our surgeon Dr. Kathy Avalos. CLINICAL IMPRESSION Diagnosis/Annotation: ED Dx Name:Acute cholecystitis Code:K81.0 Disposition: hospitalized Admit to: [facility]. Admitting Considerations: ATTESTATION CRITICAL CARE TIME Is this a critically ill patient: no Electronic Signatures: Isaiah Ndiaye) (Signed 19-Mar-2021 23:39) Authored: Results/Vital Signs, MDM/ED Course, Clinical Impression, Attestation, Chart Review, Scores Last Updated: 19-Mar-2021 23:39 by Isaiah Ndiaye) [facility] US GALLBLADDERon 03-20-2021 US GALLBLADDER Patient Name: ASHLEY WEINSTEIN STUDY: US GALLBLADDER; 03/19/2021 10:20 pm INDICATION: Acute cholecystitis. COMPARISON: CT abdomen pelvis 03/19/2021 ACCESSION NUMBER(S): [id number] ORDERING CLINICIAN: ISAIAH NDIAYE TECHNIQUE: Multiple images of the right upper quadrant were obtained. FINDINGS: Evaluation is limited due to bowel gas. LIVER: Limited evaluation of the liver which measures up to 17.7 cm. GALLBLADDER: The gallbladder measures up to 3.3 cm, nondistended. The gallbladder wall measures up to 5 mm, mildly thickened. There is an echogenic shadowing region adjacent to the gallbladder neck which measures up to 2.9 cm and is favored to represent bowel rather than a calculus given lack of corresponding abnormality on recent CT. BILIARY TREE: No intra or extrahepatic biliary dilatation is identified. The common bile duct measures 4 mm. PANCREAS: The pancreas is poorly visualized due to overlying bowel gas. RIGHT KIDNEY: The right kidney is normal in size, measuring 10.5 cm in craniocaudal dimension. The renal cortical echogenicity and thickness are within normal limits. No hydronephrosis or renal calculi are seen. IMPRESSION: Limited evaluation due to extensive bowel gas.Mild gallbladder wall thickening present. Additional findings better seen on CT imaging. Echogenic shadowing structure in the region of the cystic duct is favored to represent bowel loop rather than a 2 cm cystic duct stone given lack of corresponding structure on CT imaging. Electronically signed by: TESSIE AGUIRRE, DO Normal [facility] CBC AND DIFFERENTIALon 03-19 DIFFERENTIAL SEE MANUAL DIFF Normal [facility] Comment on above: Performed By: #### C BCDF ####[place] [id number] Erythrocyte distribution width (RBC) [Ratio] 13.1 % Normal 11.5 - 14.5 [facility] Comment on above: Performed By: #### C BCDF ####[place] [id number] Hematocrit (Bld) [Volume fraction] 44.2 % Normal 41.0 - 52.0 [facility] Comment on above: Performed By: #### C BCDF ####[address] [address] Hemoglobin (Bld) [Mass/Vol] 14.7 g/dL Normal 13.5 - 17.5 [facility] Comment on above: Performed By: #### C BCDF ####[address] [address] MCHC (RBC) [Mass/Vol] 33.2 g/dL Normal 32.0 - 36.0 [facility] Comment on above: Performed By: #### C BCDF ####[address] [address] MCV (RBC) [Entitic vol] 88 fL Normal 80 - 100 [facility] Comment on above: Performed By: #### C BCDF ####[address] [address] Platelets (Bld) [#/Vol] 153 10*3/uL Normal 150 - 450 [facility] Comment on above: Performed By: #### C BCDF ####[address] [address] RBC 5.04 x10E12/L Normal 4.50 - 5.90 [facility] Comment on above: Performed By: #### C BCDF ####[address] [address] WBC (Bld) [#/Vol] 19.6 10*3/uL High 4.4 - 11.3 [facility] Comment on above: Performed By: #### C BCDF ####[place] [id number] COMPREHENSIVE PANELon 2020 Albumin [Mass/Vol] 3.5 g/dL Normal 3.4 - 5.0 [facility] Comment on above: Performed By: #### P SASC #### [address] [address] ALP [Catalytic activity/Vol] 95 U/L Normal 33 - 136 [facility] Comment on above: Performed By: #### P SASC #### [address] [address] ALT [Catalytic activity/Vol] 32 U/L Normal 10 - 52 [facility] Comment on above: Result Comment: Jessica ents treated with Sulfasalazine may generate falsely decreased results for ALT. Performed By: #### P SASC #### [address] [address] Anion gap [Moles/Vol] 13 mmol/L Normal 10 - 20 [facility] Comment on above: Performed By: #### P SASC #### [address] [address] AST [Catalytic activity/Vol] 28 U/L Normal 9 - 39 [facility] Comment on above: Performed By: #### P SASC #### [address] [address] Bilirubin [Mass/Vol] 1.5 mg/dL High 0.0 - 1.2 [facility] Comment on above: Performed By: #### P SASC #### [address] [address] Calcium [Mass/Vol] 8.9 mg/dL Normal 8.6 - 10.3 [facility] Comment on above: Performed By: #### P SASC #### [address] [address] Chloride [Moles/Vol] 96 mmol/L Low 98 - 107 [facility] Comment on above: Performed By: #### P SASC #### [address] [address] Creatinine [Mass/Vol] 1.28 mg/dL Normal 0.50 - 1.30 [facility] Comment on above: Performed By: #### P SASC #### [address] [address] GFR- AM. 67 mL/min/1.73m2 Normal >60 [facility] Comment on above: Result Comment: CALC ULATIONS OF ESTIMATED GFR ARE PERFORMED USING THE MDRD STUDY EQUATION FOR THE IDMS-TRACEABLE CREATININE METHODS. CLIN CHEM 2007;53:766-72 Performed By: #### P SASC #### [address] [address] GFR-NON AM. 55 mL/min/1.73m2 Abnormal >60 [facility] Comment on above: Performed By: #### P SASC #### [address] [address] Glucose [Mass/Vol] 139 mg/dL High 74 - 99 [facility] Comment on above: Performed By: #### P SASC #### [address] [address] HCO3 (Bld) [Moles/Vol] 29 mmol/L Normal 21 - 32 [facility] Comment on above: Performed By: #### P SASC #### [address] [address] Potassium [Moles/Vol] 4.0 mmol/L Normal 3.5 - 5.3 [facility] Comment on above: Performed By: #### P SASC #### [address] [address] Protein [Mass/Vol] 6.6 g/dL Normal 6.4 - 8.2 [facility] Comment on above: Performed By: #### P SASC #### [place] [address] [place] [address] Sodium [Moles/Vol] 134 mmol/L Low 136 - 145 [facility] Comment on above: Performed By: #### P SAS #### [place] [address] [place] [address] Urea nitrogen [Mass/Vol] 18 mg/dL Normal 6 - 23 [facility] Comment on above: Performed By: #### P SAS #### [place] [address] [place] [address] CT ABDOMEN AND PELVIS W IV C [facility] 03-19-2021 CT ABDOMEN AND PELVIS W IV CONTRAST Patient Name: ASHLEY WEINSTEIN STUDY: CT ABDOMEN AND PELVIS W IV CONTRAST; 03/19/2021 7:17 pm INDICATION: RLQ abdominal pain, constipation. COMPARISON: None ACCESSION NUMBER(S): [id number] ORDERING CLINICIAN: MARCO FERRARA TECHNIQUE: Axial CT images of the abdomen and pelvis with coronal and sagittal reconstructed images obtained after the administration of intravenous contrast, 90 mL Omnipaque 350. FINDINGS: LOWER CHEST: Linear bibasilar right greater than left airspace opacities, likely subsegmental atelectasis. Cardiomegaly. 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 LIVER: Ovoid subcapsular 1.7 cm hypodensity within the right hepatic lobe, incompletely characterized however likely reflecting a cyst. Curvilinear enhancing region within the anterior liver (series 2, image 34) with apparent continuity between the left portal vein and middle hepatic vein. BILE DUCTS: No biliary ductal dilatation. GALLBLADDER: The gallbladder is distended with irregular wall thickening and extensive pericholecystic fat stranding. A gallstone is position within the cystic duct. Additional gallstone within the gallbladder neck. PANCREAS: Within normal limits. SPLEEN: Within normal limits. ADRENALS: Within normal limits. KIDNEYS, URETERS, and BLADDER: No hydronephrosis or renal calculi. Ureters are non-dilated. Urinary bladder within normal limits. VESSELS: Aortic caliber normal. Atherosclerotic arterial calcifications. RETROPERITONEUM and LYMPH NODES: No lymphadenopathy. REPRODUCTIVE: Prostatomegaly measuring 5.3 cm transverse. Nonspecific subcentimeter hypodensity within the posterior right transitional zone. BOWEL: The stomach is unremarkable. There is fat stranding about the duodenum, likely secondary to adjacent pericholecystic inflammatory change. Normal appendix. There is fluid within the colon compatible with diarrhea. Mild colonic diverticulosis without evidence of diverticulitis. PERITONEUM: No ascites or free air, no fluid collection. BODY WALL: 1 small fat containing left inguinal hernia. MUSCULOSKELETAL: There is diffuse osteopenia. No acute osseous abnormality. Osseous spurring at the right iliac wing, possibly osteo chondroma. Regions of spurring at the proximal femurs bilaterally may reflect additional osteochondromas. There is mild bilateral hip osteoarthritis. IMPRESSION: 1. Acute calculus cholecystitis. Surgical evaluation is recommended. 2. Curvilinear enhancing region within the anterior liver with apparent continuity between the left portal vein and middle hepatic vein. Follow-up Doppler evaluation may be considered to evaluate for portosystemic shunt. 3. Prostatomegaly measuring 5.3 cm transverse. Nonspecific subcentimeter hypodensity within the posterior right transitional zone. Correlation with PSA is recommended. 4. Osseous spurring at the right iliac wing, possibly osteochondroma. Regions of spurring at the proximal femurs bilaterally may reflect additional osteochondromas. Correlation for multiple hereditary exostoses is recommended. Document Only: Acute cholecystitis The critical information above was relayed directly by me by telephone to Dr. Ndiaye on 03/19/2021 at 8:09 pm with readback verification. Electronically signed by: NILTON SMITH DO Normal [facility] CT Abdomen and Pelvis with I V Contraston 03-19-2021 CT Abdomen and Pelvis W contrast IV Normal [facility] Work Phone: [phone] Complete Blood Count + Diffe rentialon 03-19-2021 Erythrocyte distribution width (RBC) [Ratio] 13.1 % See Below [facility]LightInTheBox[facility] Work Phone: [phone] Comment on above: Reference Range: 11. 5 - 14.5 Hematocrit (Bld) [Volume fraction] 44.2 % See Below [facility] Work Phone: Comment on above: Reference Range: 41. 0 - 52.0 Hemoglobin (Bld) [Mass/Vol] 14.7 g/dL See Below [facility] Work Phone: [phone] Comment on above: Reference Range: 13. 5 - 17.5 MCHC (RBC) [Mass/Vol] 33.2 g/dL See Below [facility] [employer] [facility] Work Phone: Comment on above: Reference Range: 32. 0 - 36.0 MCV (RBC) [Entitic vol] 88 fL 80 - 100 [facility] Work Phone: Platelets (Bld) [#/Vol] 153 10*3/uL 150 - 450 [facility] FAB BAG [facility] Work Phone: RBC (Bld) [#/Vol] 5.04 {x10E12/L} See Below [facility] Work Phone: Comment on above: Reference Range: 4.5 0 - 5.90 WBC (Bld) [#/Vol] 19.6 10*3/uL above high threshold 4.4 - 11.3 [facility] Work Phone: [phone] Complete Blood Count + Differential SEE MANUAL DIFF [facility] Work Phone: Coronavirus 2019 RNA by PCR, Symptomaticon 03-19-2021 Date and time of symptom onset [id number] [facility] Work Phone: Coronavirus 2019 RNA by PCR, Symptomatic Not detected Normal See Below [facility] Work Phone: [phone] Comment on above: SOURCE: Nasal, Nasop haryngealReference Range: Not Detected.This test has received FDA Emergency Use Authorization (EUA) and has been verified by [facility]. This test is only authorized for the duration of time that circumstances exist to justify the authorization of the emergency use of in vitro diagnostic tests for the detection of SARS-CoV-2 virus and/or diagnosis of COVID-19 infection under section 564(b)(1) of the Act, 21 U.S.C. 360bbb-3(b)(1), unless the authorization is terminated or revoked sooner. [facility] is certified under CLIA-88 as qualified to perform high complexity testing. Testing is performed in the [facility] laboratory located at [address] [place] [address].SARS-CoV-2/Flu/RSV Multiplex Test: Fact sheet for providers: https://www.fda.gov/media/330448/downloadFact sheet for patients: https://www.fda.gov/media/514975/download LACTATEon 03-19-2021 Lactate [Moles/Vol] 1.2 mmol/L Normal 0.4 - 2.0 [facility] Comment on above: Result Comment: Esperanza puncture immediately after or during the administration of Metamizole may lead to falsely low results. Testing should be performed immediately prior to Metamizole dosing. Performed By: #### B MP #### [place] [address] Lactate [Moles/Vol] 2.4 mmol/L High 0.4 - 2.0 [facility] Comment on above: Result Comment: Esperanza puncture immediately after or during the administration of Metamizole may lead to falsely low results. Testing should be performed immediately prior to Metamizole dosing. Performed By: #### L ACT ####[place] [address] LIPASEon 03-19-2021 Lipase [Catalytic activity/Vol] 21 U/L Normal 9 - 82 [facility] Comment on above: Result Comment: Esperanza puncture immediately after or during the administration of Metamizole may lead to falsely low results. Testing should be performed immediately prior to Metamizole dosing. V-qxqvnj-c-benzoquinone imine (metabolite of Acetaminophen) will generate erroneously low results in samples for patients that have taken toxic doses of acetaminophen. Performed By: #### L IPAS #### [place] [address] Laboratory - Chemistry and C hemistry - challengeon 03-19-2021 Albumin BCP dye [Mass/Vol] 3.5 g/dL 3.4 - 5.0 -[facility] Work Phone: ALP [Catalytic activity/Vol] 95 U/L 33 - 136 -[facility] Work Phone: ALT With P-5'-P [Catalytic activity/Vol] 32 U/L 10 - 52 [facility] Work Phone: Comment on above: Patients treated wit h Sulfasalazine may generate falsely decreased results for ALT. Anion gap [Moles/Vol] 13 mmol/L 10 - 20 [facility] Work Phone: AST With P-5'-P [Catalytic activity/Vol] 28 U/L 9 - 39 [facility] Work Phone: Bilirubin [Mass/Vol] 1.5 mg/dL above high threshold 0.0 - 1.2 [facility] Work Phone: Calcium [Mass/Vol] 8.9 mg/dL 8.6 - 10.3 [facility] Work Phone: Chloride [Moles/Vol] 96 mmol/L below low threshold 98 - 107 [facility] Work Phone: CO2 [Moles/Vol] 29 mmol/L 21 - 32 [facility] Work Phone: Creatinine [Mass/Vol] 1.28 mg/dL See Below - [facility] Work Phone: Comment on above: Reference Range: 0.5 0 - 1.30 Glucose [Mass/Vol] 139 mg/dL above high threshold 74 - 99 [facility] Work Phone: Potassium [Moles/Vol] 4.0 mmol/L 3.5 - 5.3 [facility] Work Phone: Protein [Mass/Vol] 6.6 g/dL 6.4 - 8.2 [facility] Work Phone: Sodium [Moles/Vol] 134 mmol/L below low threshold 136 - 145 [facility] Work Phone: Urea nitrogen [Mass/Vol] 18 mg/dL 6 - 23 [facility] Work Phone: [phone] Laboratory - Hematology and Cell countson 03-19-2021 Band form neutrophils/100 WBC (Bld) 2.0 % 0.0 - 5.0 [facility] Work Phone: [phone] Basophils/100 WBC (Bld) 0.0 % 0.0 - 2.0 [facility] Work Phone: [phone] Lymphocytes/100 WBC (Bld) 3.0 % See Below [facility] Work Phone: [phone] Comment on above: Reference Range: 13. 0 - 44.0 Monocytes/100 WBC (Bld) 1.0 % 2.0 - 10.0 [facility] Work Phone: [phone] Lactate, Levelon 03-19-2021 Lactate [Moles/Vol] 1.2 mmol/L 0.4 - 2.0 [facility] Work Phone: [phone] Comment on above: Venipuncture immedia tely after or during the administration of Metamizole may lead to falsely low results. Testing should be performed immediately prior to Metamizole dosing. Lactate [Moles/Vol] 2.4 mmol/L above high threshold 0.4 - 2.0 [facility] Work Phone: Comment on above: Venipuncture immedia tely after or during the administration of Metamizole may lead to falsely low results. Testing should be performed immediately prior to Metamizole dosing. Lipase, Serumon 03-19-2021 Lipase [Catalytic activity/Vol] 21 U/L 9 - 82 [facility] Work Phone: Comment on above: Venipuncture immedia tely after or during the administration of Metamizole may lead to falsely low results. Testing should be performed immediately prior to Metamizole dosing. C-uortsv-t-benzoquinone imine (metabolite of Acetaminophen) will generate erroneously low results in samples for patients that have taken toxic doses of acetaminophen. MANUAL DIFFERENTIALon 2020 % BAND NEUTROPHIL 2.0 % Normal 0.0 - 5.0 [facility] Comment on above: Performed By: #### B MP #### [address] [address] % BASOPHIL 0.0 % Normal 0.0 - 2.0 [facility] Comment on above: Performed By: #### B MP #### [address] [address] % EOSINOPHIL 0.0 % Normal 0.0 - 6.0 [facility] Comment on above: Performed By: #### B MP #### [address] [address] % LYMPH-ATYPICAL 4.0 % Normal 0.0 - 2.0 [facility] Comment on above: Performed By: #### B MP #### [address] [address] % LYMPHOCYTE 3.0 % Normal 13.0 - 44.0 [facility] Comment on above: Performed By: #### B MP #### [address] [address] % MONOCYTE 1.0 % Normal 2.0 - 10.0 [facility] Comment on above: Performed By: #### B MP #### [address] [address] % SEG NEUTROPHIL 90.0 % Normal 40.0 - 80.0 [facility] Comment on above: Result Comment: Perc ent differential counts (%) should be interpreted in the context of the absolute cell counts (cells/L). Performed By: #### B MP #### [address] [address] ANC 18.03 x10E9/L High 1.60 - 5.50 [facility] Comment on above: Performed By: #### B MP #### [address] [address] BAND NEUTROPHIL 0.39 x10E9/L Normal 0.00 - 0.50 [facility] Comment on above: Performed By: #### B MP #### [place] [address] BASOPHIL 0.00 x10E9/L Normal 0.00 - 0.10 [facility] Comment on above: Performed By: #### B MP #### [place] [address] EOSINOPHIL 0.00 x10E9/L Normal 0.00 - 0.40 [facility] Comment on above: Performed By: #### B MP #### [place] [address] LYMPH-ATYPICAL 0.78 x10E9/L High 0.00 - 0.30 [facility] Comment on above: Performed By: #### B MP #### [place] [address] LYMPHOCYTE 0.59 x10E9/L Low 0.80 - 3.00 [facility] Comment on above: Performed By: #### B MP #### [place] [address] MONOCYTE 0.20 x10E9/L Normal 0.05 - 0.80 [facility] Comment on above: Performed By: #### B MP #### [place] [address] SEG NEUTROPHIL 17.64 x10E9/L High 1.60 - 5.00 [facility] Comment on above: Performed By: #### B MP #### [place] [address] No Panel Informationon 03-19 0.78 {x10E9/L} above high threshold See Below -[facility] Work Phone: [phone] Comment on above: Reference Range: 0.0 0 - 0.30 0.00 {x10E9/L} See Below -[facility] Work Phone: [phone] Comment on above: Reference Range: 0.0 0 - 0.10 Reference Range: 0.0 0 - 0.40 0.20 {x10E9/L} See Below [facility] Work Phone: [phone] Comment on above: Reference Range: 0.0 5 - 0.80 0.59 {x10E9/L} below low threshold See Below [employer] Work Phone: [phone] Comment on above: Reference Range: 0.8 0 - 3.00 0.39 {x10E9/L} See Below [facility] Work Phone: [phone] Comment on above: Reference Range: 0.0 0 - 0.50 17.64 {x10E9/L} above high threshold See Below [employer] [facility] Work Phone: [phone] Comment on above: Reference Range: 1.6 0 - 5.00 18.03 {x10E9/L} above high threshold See Below [facility] Work Phone: [phone] Comment on above: Reference Range: 1.6 0 - 5.50 4.0 % 0.0 - 2.0 [facility] Work Phone: [phone] 0.0 % 0.0 - 6.0 [facility] Work Phone: [phone] 90.0 % See Below [employer] Work Phone: [phone] Comment on above: Reference Range: 40. 0 - 80.0 Percent differential counts (%) should be interpreted in the context of the absolute cell counts (cells/L). NORMAL [employer] [facility] Work Phone: {mL/min/1.73m2} >60 [employer] [facility] Work Phone: [phone] Comment on above: CALCULATIONS OF DENISSE MATED GFR ARE PERFORMED USING THE MDRD STUDY EQUATION FOR THE IDMS-TRACEABLE CREATININE METHODS. CLIN CHEM 2007;53:766-72 55 {mL/min/1.73m2} Abnormal >60 [employer] [facility] Work Phone: [phone] Provider Note - ED v2on 03-01 Provider Note - ED v2 Provider Note - ED v2: Chart Review: ED NOTES ED NOTES: Source of Information: Patient. EMR was reviewed for previous records. -------- HPI: Concern for possible appendicitis. This 75-year-old white male presents to the ED with complaint of right lower quadrant abdominal pain. Patient states that he is been symptomatic for the past 1.5 weeks. States that he also has been very constipated and has not had a bowel movement for the past 1.5 weeks. Patient states that he took [id number] laxative without much improvement. He states that he does not feel as though he can eat anything because he does not feel as though his bowels are moving at all. States that he is concerned because he has right lower quadrant abdominal pain. No history of nausea or vomiting. -------- PMH: Seasonal allergies, GERD, constipation, hypertension, BPH, elevated cholesterol, hypertension PSH: Carpal tunnel surgery Social Hx: The patient denies any use of tobacco, alcohol or illicit drugs. Fam: MEDS: Noted in the EMR. ALLERGIES: NKDA -------- PHYSICAL EXAM: General: Patient alert, awake, oriented X3, appears be no obvious distress, nontoxic, cooperative Skin: Warm. Dry. Intact without rash. Eyes: PEARTLA, EOMIs intact, sclera white, conjunctiva clear HEENT: Atraumatic. Normo-cephalic. Oral nasal mucosa pink and moist. Neck: Supple without meningismus, no lymphadenopathy. CV: Regular rate and rhythm without murmurs, heaves, lifts or thrills. Respiratory: Nonlabored breathing. There are no retractions or tachypnea. Lungs are clear to auscultation bilaterally. GI: Abdomen is mildly distended soft with increased bowel sounds all 4 quadrants. There is focal tenderness in the right lower quadrant with voluntary guarding there is no rebound rigidity. Negative heel strike. No CVA tenderness. MUSC: There is no joint swelling or bony tenderness on exam. Neuro: Cranial nerves II - XII grossly intact. Speech is fluent. No focal neurologic deficits are noted on exam. Lower extremities: There is no peripheral edema bilaterally, negative Homans sign. No palpable cords. Distal pulses are present in both lower extremities. Psych: Maintains eye contact. Cooperative. -------- ED course: Patient was seen and evaluated due to complaints of abdominal pain. Primarily patient was complained of right lower quadrant abdominal pain and clinically on examination had tenderness in the right lower quadrant. Patient had lab work and a CT scan of the abdomen pelvis this revealed evidence of acute cholecystitis. Gallbladder ultrasound was ordered and pending when patient care was turned over to the oncoming ED attending surgical consultation will be required due to the abnormality found on CT scan. Patient currently stable satisfactory condition. This chart was dictated with the use of [employer] software within the framework of the current electronic medical records software. Attempts were made to edit in real time, given time constraints there is the potential for inaccuracies in my dictation. Marco Ferrara, DO HISTORY OF PRESENTING ILLNESS ASHLEY is a 75 year old Male and was seen by me at 19-Mar-2021 16:36 for a chief complaint of constipation (Patient states he has not had a bowel movement for 10 days, states he bought a laxative today but is unsure of the name but states he has not had results yet. Has right lower quadrant pain, also complains of nausea and vomiting)(1). Triage Information: Most recent Vital Sign Value Date Temp (F): 99.9 03-19-2021 15:54 Temp (C): 37.7 03-19-2021 15:54 Heart Rate (beats/min): 111 03-19-2021 15:54 Respirations (breaths/min): 16 03-19-2021 15:54 SpO2 (%): 98 03-19-2021 15:54 BP Systolic (mm Hg): 161 03-19-2021 15:54 BP Diastolic (mm Hg): 75 03-19-2021 15:54 PAST MEDICAL HISTORY ATTESTATION: I have reviewed and confirmed nurse's/medic's notes for patient's medications, allergies, and medical, surgical, family and social history ALLERGIES/INTOLERANCES: Allergy Allergen: penicillin Type: Drug Reaction: Unknown HEALTH HISTORY: No documented data. OUTPATIENT MEDICATIONS: Home Medications Review Status for Reconciliation: Complete Med Status: Patient Currently Takes Medications Drug Name: amlodipine 10 mg tablet Instructions: 1 tab(s) orally once a day Drug Name: atorvastatin 40 mg tablet (more content not included)... [facility] CELL MORPHOLOGYon 2020 RBC morphology finding Nom (Bld) NORMAL Normal [facility] Comment on above: Performed By: #### B MP #### [facility] [address] [place] [address] Radiologyon 03-19-2021 US Gallbladder Normal MP-[facility] Work Phone: Risk Screen - Adult Emergenc yon 03-19-2021 Risk Screen - Adult Emergency Preferred Language: Preferred Language: Preferred Language for Discussing Health Care (patient/designee)Eliseo eles Advanced Directives: Advance Directive/DNRno Advance Directive Information Givenpatient/family declined Family Violence Adult: Abuse Screen: Are you or have you been threatened or abused physically, emotionally, or sexually by anyoneno Learning Assessment (Patient): Learning Assessment (Patient): Patient is Able to be Assessed for Learningyes Factors Influencing Readiness to Learninterest in learning Factors that Impact Ability to Learnnone Devices/Methods Used to Communicatenone Learning Preferencesverbal instruction Cultural Considerationsnone Developmental Considerationsnone Sikhism Considerationsnone Learning Assessment (Other Learner): Learning Assessment (Other Learner): Other learner availableno Pressure Injury/TB/Substance: Pressure Injury: Pressure Injury Present on Admissionno Do you have a coughno Smoking Statusnever smoker Alcohol Usedenies Drug Usedenies Admission Risk Screen: Significant IndicatorsComplete CAGE: CAGE: Is this an injured patient at a Trauma Center ([facility]/[place] /[place]): no Electronic Signatures: Kiersten Ayala (RAZA) (Signed 19-Mar-2021 16:01) Authored: Preferred Language, Advanced Directives, Family Violence Adult, Learning Assessment (Patient), Learning Assessment (Other Learner), Pressure Injury/TB/Substance, Pressure Injury, CAGE Last Updated: 19-Mar-2021 16:01 by Kiersten Ayala (RAZA) Normal [facility] Triage - EDon 03-19-2021 Triage - ED Chart Review: PRIMARY ASSESSMENT ASHLEY WEINSTEIN's primary assessment is Within Defined Limits. The airway is open and patent. Breathing spontaneous and unlabored with clear breath sounds bilaterally. Circulation is normal with good peripheral pulses. Skin is warm and dry and color is normal for race. ARRIVAL INFORMATION Means of Arrival: Ambulatory Mode of Arrival: private vehicle Arrival From: home Accompanied By: self Language: Spoken Language Preferred: Tajik CHIEF COMPLAINT ASHLEY WEINSTEIN is a Male patient with a chief complaint of constipation (Patient states he has not had a bowel movement for 10 days, states he bought a laxative today but is unsure of the name but states he has not had results yet. Has right lower quadrant pain, also complains of nausea and vomiting). Triage Date/Time: 19-Mar-2021 15:54 STACY: 3V Pain Rating (0-10): 9 = Severe Pain location: right lower abdomen Vital Signs: Temperature: 99.9F ( 37.7C) taken oral Blood Pressure: 161/75 Mean: Heart Rate: 111 Respiratory Rate: 16 Pulse Oximetry: 98% on room air, no respiratory support. Height: 5 feet 4.00 inches. 162.5 CM Weight: 196.4 pounds. Calculated 89.1 kg. (stated) Calculated BMI (kg/m2): 33.742 Calculated BSA (m2) 2.01 Yogi Coma Scale: Best Eye Response: (E4) spontaneous Best Motor Response: (M6) obeys commands Best Verbal Response: (V5) oriented [place] Score: 15 Allergies: yes Mask applied: yes Patient has homicidal thoughts: no Last Bowel Movement: 09-Mar-2021 Risk Screens Suicide Risk Screen In the Past Month: Have you wished you were or wished you could go to sleep and not wake up no In the Past Month: Have you had any actual thoughts of killing yourself no In Your Lifetime: Have you ever done anything, started to do anything, or prepared to do anything to end your life no Morel Fall Scale Screening Has the patient fallen before (or is the patient in the ED as a result of a fall) has not had a fall Does the patient have an impaired gait does not have impaired gait Is the patient cognitively impaired not cognitively impaired Interventions: Adriel Fall Interventions: LOW INTERVENTIONS: *patient oriented to surroundings and call system, * patient/family falls education completed and documented, *patients fall status communicated during bedside handoff, *whiteboard updated, *mode of toileting discussed with patient, *bed in low position with brakes locked, *call light in reach, * non-skid footwear TRAVEL HISTORY Travel History Coronavirus Screening: no exposure or symptoms Travel Exposure History: NO travel to International locations in the past 30 days PAIN Pain Scale Used: FREDDIE Pain Rating (0-10): 9 = Severe Past Medical History: Past Medical History Reviewedyes Triple bypass 2010: Past Surgical History, Active Electronic Signatures: Kiersten Ayala (RAZA) (Signed 19-Mar-2021 16:00) Authored: Quick Triage, Risk Screens, Pain, Arrival, ABCD, Travel History, Chart Review, Scores, Past Medical History Last Updated: 19-Mar-2021 16:00 by Kiersten Ayala (RAZA) Normal [facility] UA MICROSCOPICon 03-19-2021 GRANULAR CAST 2+ /LPF Abnormal [facility] Comment on above: Performed By: #### P SASC #### [place] [address] Mucus Ql (Urine sed) 1+ /LPF Normal [facility] Comment on above: Performed By: #### P SASC #### [place] [address] RBC (U) [#/Vol] /uL Normal [address] [place] [address] Comment on above: Performed By: #### P SASC #### [place] [address] SQUAMOUS EPITH. CELLS 1 /HPF Normal [facility] Comment on above: Performed By: #### P SASC #### [place] [address] WBC 2 /HPF Normal 0-5 [facility] Comment on above: Performed By: #### P SASC #### [place] [address] URINALYSISon 03-19-2021 Appearance (U) Canceled [facility] Comment on above: Order Comment: TEST URINALYSIS WAS CANCELLED, 03/19/2021 18:32 Performed By: #### B MP #### [place] [address] ASCORBIC ACID Canceled [facility] Comment on above: Order Comment: TEST URINALYSIS WAS CANCELLED, 03/19/2021 18:32 Result Comment: Conc entrations > = 20 mg/dL of ascorbic acid can be expected to cause strong interference in the reactions testing for glucose, nitrite and blood. It is recommended to discontinue Vitamin C administration and retest in 10 hours. Performed By: #### B MP #### [address] [address] Bilirubin Ql (U) Canceled [facility] Comment on above: Order Comment: TEST URINALYSIS WAS CANCELLED, 03/19/2021 18:32 Performed By: #### B MP #### [address] [address] Color (U) Canceled [facility] Comment on above: Order Comment: TEST URINALYSIS WAS CANCELLED, 03/19/2021 18:32 Performed By: #### B MP #### [address] [address] Glucose Ql (U) Canceled [facility] Comment on above: Order Comment: TEST URINALYSIS WAS CANCELLED, 03/19/2021 18:32 Performed By: #### B MP #### [address] [address] Hemoglobin Ql (U) Canceled [facility] Comment on above: Order Comment: TEST URINALYSIS WAS CANCELLED, 03/19/2021 18:32 Performed By: #### B MP #### [address] [address] Ketones Ql (U) Canceled [facility] Comment on above: Order Comment: TEST URINALYSIS WAS CANCELLED, 03/19/2021 18:32 Performed By: #### B MP #### [address] [address] Leukocyte esterase Test strip Ql (U) Canceled [facility] Comment on above: Order Comment: TEST URINALYSIS WAS CANCELLED, 03/19/2021 18:32 Performed By: #### B MP #### [address] [address] Nitrite Ql (U) Canceled [facility] Comment on above: Order Comment: TEST URINALYSIS WAS CANCELLED, 03/19/2021 18:32 Performed By: #### B MP #### [address] [address] pH Canceled [facility] Comment on above: Order Comment: TEST URINALYSIS WAS CANCELLED, 03/19/2021 18:32 Performed By: #### B MP #### [address] [address] Protein Ql (U) Canceled [facility] Comment on above: Order Comment: TEST URINALYSIS WAS CANCELLED, 03/19/2021 18:32 Performed By: #### B MP #### [place] [address] Specific gravity (U) [Rel density] Canceled [facility] Comment on above: Order Comment: TEST URINALYSIS WAS CANCELLED, 03/19/2021 18:32 Performed By: #### B MP #### [place] [address] UROBILINOGEN Canceled [facility] Comment on above: Order Comment: TEST URINALYSIS WAS CANCELLED, 03/19/2021 18:32 Performed By: #### B MP #### [place] [address] Appearance (U) HAZY Normal CLEAR [facility] Comment on above: Performed By: #### P SASC #### [address] [address] Bilirubin Ql (U) Negative Normal NEGATIVE [facility] Comment on above: Performed By: #### P SASC #### [address] [address] Color (U) Nika Normal STRAW,YELLOW [facility] Comment on above: Performed By: #### P SASC #### [address] [address] Glucose Ql (U) Negative Normal NEGATIVE [facility] Comment on above: Performed By: #### P SASC #### [address] [address] Hemoglobin Ql (U) SMALL(1+) Abnormal NEGATIVE [facility] Comment on above: Performed By: #### P SASC #### [place] [id number] Ketones Ql (U) Negative Normal NEGATIVE [facility] Comment on above: Performed By: #### P SASC #### [place] [id number] Leukocyte esterase Test strip Ql (U) Negative Normal NEGATIVE [facility] Comment on above: Performed By: #### P SASC #### [place] [id number] Nitrite Ql (U) Negative Normal NEGATIVE [facility] Comment on above: Performed By: #### P SASC #### [place] [address] pH (U) 5.0 [pH] Normal 5.0 - 8.0 [facility] Comment on above: Performed By: #### P SASC #### [place] [address] Protein Ql (U) 100(2+) Abnormal NEGATIVE [facility] Comment on above: Performed By: #### P SASC #### [place] [address] Specific gravity (U) [Rel density] 1.021 Normal 1.005 - 1.035 [facility] Comment on above: Performed By: #### P SASC #### [place] [id number] Urobilinogen (U) [Mass/Vol] mg/dL Normal 0.0 - 1.9 [facility] Comment on above: Performed By: #### P SASC #### [place] [id number] Urinalysison 03-19-2021 Color (U) Nika See Below -[facility] Work Phone: Comment on above: Reference Range: STR AW,YELLOW Glucose Ql (U) Negative NEGATIVE -[facility] Work Phone: Ketones Ql (U) Negative NEGATIVE -[facility] Work Phone: [phone] Leukocyte esterase Test strip Ql (U) Negative NEGATIVE -[facility] Work Phone: [phone] pH (U) 5.0 [pH] 5.0 - 8.0 -[facility] Work Phone: Protein (U) [Mass/Vol] 100(2+) Abnormal NEGATIVE -[facility] Work Phone: [phone] RBC (U) [#/Vol] SMALL(1+) Abnormal NEGATIVE -[facility] Work Phone: [phone] Specific gravity (U) [Rel density] 1.021 1 See Below [facility] [employer] Phone: [phone] Comment on above: Reference Range: 1.0 05 - 1.035 Urinalysis Negative NEGATIVE -[facility] Work Phone: [phone] Urinalysis <2.0 0.0 - 1.9 -[facility] Work Phone: [phone] Urinalysis HAZY CLEAR -[facility] Work Phone: Urinalysis, Microscopicon Urinalysis, Microscopic 2+ Abnormal -[facility] Work Phone: Urinalysis, Microscopic 1+ -[facility] Work Phone: Urinalysis, Microscopic 1 {/HPF} -[facility] Work Phone: Urinalysis, Microscopic <1 0-5 -[facility] Work Phone: Urinalysis, Microscopic 2 {/HPF} 0-5 -[facility] Work Phone: Laboratory - Molecular patho logyon 03-09-2021 Noninvasive colorectal cancer DNA and occult blood screening Tobin (Stl) [Interp] Negative Negative -[facility] Work Phone: Comment on above: [employer] LABOR ATORBAN[facility] (CLIA #:[id number])Neel KURTZ VIRA. [facility] [id number] CARA NELSON , Clinical Laboratory Medical DirectorNEGATIVE TEST RESULT. A negative Cologuard result indicates a low likelihood that a colorectal cancer (CRC) or advanced adenoma (adenomatous polyps with more advanced pre-malignant features) is present. The chance that a person with a negative Cologuard test has a colorectal cancer is less than 1 in 1500 (negative predictive value >99.9%) or has an advanced adenoma is less than 5.3% (negative predictive value 94.7%). These data are based on a prospective cross-sectional study of 10,000 individuals at average risk for colorectal cancer who were screened with both Cologuard and colonoscopy. (Linden Preciado al, N Engl J Med 2014;370(14):3804-3380) The normal value (reference range) for this assay is negative.COLOGUARD RE-SCREENING RECOMMENDATION: Periodic colorectal cancer screening is an important part of preventive healthcare for asymptomatic individuals at average risk for colorectal cancer. Following a negative Cologuard result, the [place] [employer] and U.S. Multi-Society Task Force screening guidelines recommend a Cologuard re-screening interval of 3 years. References: [place] [employer] Guideline for Colorectal Cancer Screening: https://www.cancer.org/cancer/bchsl-yrmgdp-lohosd/detection-kailyn gnosis-staging/acs-recommendations.html.; Jose Elias DK, Kai CR, Yann CalderonK, Colorectal Cancer Screening: Recommendations for Physicians and Patients from the U.S. Multi-Society Task Force on Colorectal Cancer Screening , Am J Gastroenterology 2017; 112:5052-0944.TEST DESCRIPTION: Composite algorithmic analysis of stool DNA-biomarkers with hemoglobin immunoassay. Quantitative values of individual biomarkers are not reportable and are not associated with individual biomarker result reference ranges. Cologuard is intended for colorectal cancer screening of adults of either sex, 45 years or older, who are at average-risk for colorectal cancer (CRC). Cologuard has been approved for use by the U.S. FDA. The performance of Cologuard was established in a cross sectional study of average-risk adults aged 50-84. Cologuard performance in patients ages 45 to 49 years was estimated by sub-group analysis of near-age groups. Colonoscopies performed for a positive result may find as the most clinically significant lesion: colorectal cancer [4.0%], advanced adenoma (including sessile serrated polyps greater than or equal to 1cm diameter) [20%] or non- advanced adenoma [31%]; or no colorectal neoplasia [45%]. These estimates are derived from a prospective cross-sectional screening study of 10,000 individuals at average risk for colorectal cancer who were screened with both Cologuard and colonoscopy. (Linden Preciado al, N Engl J Med 2014;370(14):5858-5030.) Cologuard may produce a false negative or false positive result (no colorectal cancer or precancerous polyp present at colonoscopy follow up). A negative Cologuard test result does not guarantee the absence of CRC or advanced adenoma (pre-cancer). The current Cologuard screening interval is every 3 years. ([place] [employer] and U.S. Multi-Society Task Force). Cologuard performance data in a 10,000 patient pivotal study using colonoscopy as the reference method can be accessed at the following location: www.15MinutesNOW/results. Additional description of the Cologuard test process, warnings and precautions can be found at www.[employer]. Tobacco Screening.on 021 Fall risk assessment a) No falls within the last year -[facility] Work Phone: Tobacco Screening. b) No [place] [place]: COMPREHENSIVE PANELon 2020 Albumin [Mass/Vol] 3.9 g/dL Normal 3.4 - 5.0 [facility] Comment on above: Performed By: #### C MP #### [address] [address] ALP [Catalytic activity/Vol] 76 U/L Normal 33 - 136 [facility] Comment on above: Performed By: #### C MP #### [address] [address] ALT [Catalytic activity/Vol] 19 U/L Normal 10 - 52 [facility] Comment on above: Result Comment: Jessica ents treated with Sulfasalazine may generate falsely decreased results for ALT. Performed By: #### C MP #### [address] [address] Anion gap [Moles/Vol] 9 mmol/L Low 10 - 20 [facility] Comment on above: Performed By: #### C MP #### [address] [address] AST [Catalytic activity/Vol] 19 U/L Normal 9 - 39 [facility] Comment on above: Performed By: #### C MP #### [address] [address] Bilirubin [Mass/Vol] 0.9 mg/dL Normal 0.0 - 1.2 [facility] Comment on above: Performed By: #### C MP #### [address] [address] Calcium [Mass/Vol] 8.8 mg/dL Normal 8.6 - 10.3 [facility] Comment on above: Performed By: #### C MP #### [address] [address] Chloride [Moles/Vol] 105 mmol/L Normal 98 - 107 [facility] Comment on above: Performed By: #### C MP #### [address] [address] Creatinine [Mass/Vol] 1.12 mg/dL Normal 0.50 - 1.30 [facility] Comment on above: Performed By: #### C MP #### [address] [address] GFR- AM. >60 Normal >60 [facility] Comment on above: Result Comment: CALC ULATIONS OF ESTIMATED GFR ARE PERFORMED USING THE MDRD STUDY EQUATION FOR THE IDMS-TRACEABLE CREATININE METHODS. CLIN CHEM 2007;53:766-72 Performed By: #### C MP #### [address] [address] GFR-NON AM. >60 Normal >60 [facility] Comment on above: Performed By: #### C MP #### [address] [address] Glucose [Mass/Vol] 101 mg/dL High 74 - 99 [facility] Comment on above: Performed By: #### C MP #### [address] [address] HCO3 (Bld) [Moles/Vol] 30 mmol/L Normal 21 - 32 [facility] Comment on above: Performed By: #### C MP #### [address] [address] Potassium [Moles/Vol] 4.2 mmol/L Normal 3.5 - 5.3 [facility] Comment on above: Performed By: #### C MP #### [address] [address] Protein [Mass/Vol] 6.6 g/dL Normal 6.4 - 8.2 [facility] Comment on above: Performed By: #### C MP #### [address] [address] Sodium [Moles/Vol] 140 mmol/L Normal 136 - 145 [facility] Comment on above: Performed By: #### C MP #### [address] [address] Urea nitrogen [Mass/Vol] 22 mg/dL Normal 6 - 23 [facility] Comment on above: Performed By: #### C MP #### [address] [address] LDL, DIRECTon 11-10-2020 Cholesterol in LDL [Mass/Vol] 46 mg/dL Normal 0 - 129 [facility] Comment on above: Result Comment: Elev ated levels of LDL cholesterol are recognized as a spann factor in the development of atherosclerosis and CHD. The direct LDL cholesterol test can be used to assess cardiovascular risk and monitor therapy as a follow up to a lipid profile when triglycerides are significantly elevated. Performed By: #### L DLDI #### [address] [address] LDL, Direct, Serumon 021 Cholesterol in LDL [Mass/Vol] 46 mg/dL 0 - 129 [facility] Work Phone: [phone] Comment on above: Elevated levels of L DL cholesterol are recognized as a spann factor in the development of atherosclerosis and CHD. The direct LDL cholesterol test can be used to assess cardiovascular risk and monitor therapy as a follow up to a lipid profile when triglycerides are significantly elevated. Laboratory - Chemistry and C hemistry - challengeon 11-10-2020 Albumin BCP dye [Mass/Vol] 3.9 g/dL 3.4 - 5.0 [facility] Work Phone: ALP [Catalytic activity/Vol] 76 U/L 33 - 136 [facility] Work Phone: ALT With P-5'-P [Catalytic activity/Vol] 19 U/L 10 - 52 [facility] Work Phone: [phone] Comment on above: Patients treated wit h Sulfasalazine may generate falsely decreased results for ALT. Anion gap [Moles/Vol] 9 mmol/L below low threshold 10 - 20 [facility] Work Phone: AST With P-5'-P [Catalytic activity/Vol] 19 U/L 9 - 39 [facility] Work Phone: Bilirubin [Mass/Vol] 0.9 mg/dL 0.0 - 1.2 [employer]C [facility] Work Phone: Calcium [Mass/Vol] 8.8 mg/dL 8.6 - 10.3 -[facility] ical FAB BAG [facility] Work Phone: Chloride [Moles/Vol] 105 mmol/L 98 - 107 [employer] edical FAB BAG [facility] Work Phone: CO2 [Moles/Vol] 30 mmol/L 21 - 32 -Medica l FAB BAG [facility] Work Phone: Creatinine [Mass/Vol] 1.12 mg/dL See Below [employer] [facility] Work Phone: [phone] Comment on above: Reference Range: 0.5 0 - 1.30 Glucose [Mass/Vol] 101 mg/dL above high threshold 74 - 99 -[facility] Work Phone: [phone] Potassium [Moles/Vol] 4.2 mmol/L 3.5 - 5.3 [facility] Work Phone: Protein [Mass/Vol] 6.6 g/dL 6.4 - 8.2 [facility] [place] Phone: Sodium [Moles/Vol] 140 mmol/L 136 - 145 [facility] Work Phone: Urea nitrogen [Mass/Vol] 22 mg/dL 6 - 23 -[facility] Work Phone: No Panel Informationon 11-10 >60 >60 [facility] Work Phone: Comment on above: CALCULATIONS OF DENISSE MATED GFR ARE PERFORMED USING THE MDRD STUDY EQUATION FOR THE IDMS-TRACEABLE CREATININE METHODS. CLIN CHEM 2007;53:766-72 PROSTATE SPEC.AG,SCREENon PROSTATE SPEC.AG,SCREEN 1.42 ng/mL Normal 0.00 - 4.00 [facility] Comment on above: Result Comment: The FDA requires that the method used for PSA assay be reported to the physician. Values obtained with different assay methods must not be used interchangeably. This test was performed at [facility] using the [employer] PSA assay is a two-site immunoenzymatic sandwich assay. The assay is approved for measurement of prostate-specific antigen (PSA)in serum and may be used in conjunction with a digital rectal examination in men 50 years and older as an aid in detection of prostate cancer. 7-Yakzd-jvgviwman inhibitors (e.g. Proscar, Finasteride, Avodart, Dutasteride and Cheryl) for the treatment of BPH have been shown to lower PSA levels by an average of 50% after 6 months of treatment. Performed By: #### P [facility] #### [place] [address] Prostate Spec.Ag, Screenon 0 11-10-2020 Prostate specific Ag [Mass/Vol] 1.42 ng/mL See Below [facility] Work Phone: Comment on above: Reference Range: 0.0 0 - 4.00The FDA requires that the method used for PSA assay be reported to the physician. Values obtained with different assay methods must not be used interchangeably. This testwas performed at [facility] using the [employer] PSA assay is a two-site immunoenzymatic sandwich assay. The assay is approved for measurement of prostate-specific antigen (PSA)in serum and may be used in conjunction with a digital rectal examination in men 50 years and older as an aid in detection of prostate cancer.5-Rexmk-enmdqtpnq inhibitors (e.g. Proscar, Finasteride, Avodart, Dutasteride and Cheryl) for the treatment of BPH have been shown to lower PSA levels by an average of 50% after 6 months of treatment. Otheron 08-28-2020 Atrial Rate [facility] P Bennett [facility] P-R Interval [facility] Q-T Interval [facility] Q-T Interval (corrected) [facility] QRS Duration [facility] QTC Calculation (Bezet) [facility] R Bennett [facility] T Bennett [facility] Ventricular Rate [facility] DOPPLER CAROTIDon 020 Patient Info Name: ASHLEY WEINSTEIN Age: 74 years : 1945 Gender: Male Exam Date: 12/24/2019 11:02 AM Site Location: [facility] Patient Status: Outpatient Staff Ordering Physician: TONY FITZPATRICK Supervisor Knitting: Micki Foreman RDCS, T Referring Physician: TONY FITZPATRICK ; Attending Physician: TONY FITZPATRICK Indications R09.89 - Other specified symptoms and signs involving the circulatory and respiratory systems Procedure Description 21948 Duplex examination using B-mode, color and spectral Doppler of extracranial arteries; complete bilateral study. NASCET criteria is used when performing imaging correlation with carotid duplex interpretation. Conclusions * Minimal (1-19%) stenosis in the right internal carotid artery. * No hemodynamically significant stenosis in the right common carotid, external carotid and subclavian arteries. * Right vertebral artery is patent with antegrade flow. * Minimal (1-19%) stenosis in the left internal carotid artery. * No hemodynamically significant stenosis in the left common carotid, external carotid and subclavian arteries. * Left vertebral artery is patent with antegrade flow. * Left endarterectomy is patent with no evidence of restenosis. * Empty stenosis in the right internal carotid artery. Measurements Name Value Right PSV Right Prox CCA PSV 81 cm/s Right Mid CCA PSV 78 cm/s Right Distal CCA PSV 80 cm/s Right Prox ICA PSV 118 cm/s Right Mid ICA PSV 114 cm/s Right Distal ICA PSV 78 cm/s Right ECA PSV 141 cm/s Right Vert PSV 63 cm/s BC PSV 80 cm/s Right Prox SCA PSV 109 cm/s Rt ICA/CCA Ratio 1.5 Measurements Name Value Right EDV Right Prox CCA EDV 14 cm/s Right Mid CCA EDV 17 cm/s Right Distal CCA EDV 18 cm/s Right Prox ICA EDV 29 cm/s Right Mid ICA EDV 23 cm/s Right Distal ICA EDV 25 cm/s Right ECA EDV 18 cm/s Right Vert EDV 21 cm/s BC EDV 12 cm/s Right Prox SCA EDV 0 cm/s Measurements Name Value Left PSV Left Prox CCA PSV 96 cm/s Left Mid CCA PSV 98 cm/s Left Distal CCA PSV 101 cm/s Left Prox ICA PSV 75 cm/s Left Mid ICA PSV 88 cm/s Left Distal ICA PSV 92 cm/s Left ECA PSV 133 cm/s Left Vert PSV 59 cm/s Left Prox SCA PSV 95 cm/s Lt ICA/CCA Ratio 0.7 Measurements Name Value Left EDV Left Prox CCA EDV 27 cm/s Left Mid CCA EDV 25 cm/s Left Distal CCA EDV 25 cm/s Left Prox ICA EDV 23 cm/s Left Mid ICA EDV 29 cm/s Left Distal ICA EDV 32 cm/s Left ECA EDV 20 cm/s Left Vert EDV 17 cm/s Left Prox SCA EDV 0 cm/s Right Findings * No plaque noted in the right common carotid artery. * No plaque noted in the right external carotid artery. * Homogeneous plaque noted in the right internal carotid artery. * No significant atherosclerotic plaque noted with normal Doppler flow velocities in all right carotid segments. Left Findings * No plaque noted in the left external carotid artery. * Heterogeneous plaque noted in the left common carotid artery. * Heterogeneous plaque noted in the left internal carotid artery. * No significant atherosclerotic plaque noted with normal Doppler flow velocities in all left carotid segments. Risk Factors Patient has a history of CAD, hyperlipidemia and hypertension. . Report Signatures Finalized by Harsh Harvey MD, RPVI on 12/24/2019 01:03 PM [facility] Interface, Rad In Heartlab Xper Echopacs - 12/24/2019 1:03 PM EDT Patient Info Name: ASHLEY WEINSTEIN Age: 74 years : 1945 Gender: Male Exam Date: 12/24/2019 11:02 AM Site Location: [facility] Patient Status: Outpatient Staff Ordering Physician: TONY FITZPATRICK Supervisor Knitting: Micki Foreman, GORAN, T Referring Physician: TONY FITZPATRICK ; Attending Physician: TONY FITZPATRICK Indications R09.89 - Other specified symptoms and signs involving the circulatory and respiratory systems Procedure Description [id number] Duplex examination using B-mode, color and spectral Doppler of extracranial arteries; complete bilateral study. NASCET criteria is used when performing imaging correlation with carotid duplex interpretation. Conclusions * Minimal (1-19%) stenosis in the right internal carotid artery. * No hemodynamically significant stenosis in the right common carotid, external carotid and subclavian arteries. * Right vertebral artery is patent with antegrade flow. * Minimal (1-19%) stenosis in the left internal carotid artery. * No hemodynamically significant stenosis in the left common carotid, external carotid and subclavian arteries. * Left vertebral artery is patent with antegrade flow. * Left endarterectomy is patent with no evidence of restenosis. * Empty stenosis in the right internal carotid artery. Measurements Name Value Right PSV Right Prox CCA PSV 81 cm/s Right Mid CCA PSV 78 cm/s Right Distal CCA PSV 80 cm/s Right Prox ICA PSV 118 cm/s Right Mid ICA PSV 114 cm/s Right Distal ICA PSV 78 cm/s Right ECA PSV 141 cm/s Right Vert PSV 63 cm/s BC PSV 80 cm/s Right Prox SCA PSV 109 cm/s Rt ICA/CCA Ratio 1.5 Measurements Name Value Right EDV Right Prox CCA EDV 14 cm/s Right Mid CCA EDV 17 cm/s Right Distal CCA EDV 18 cm/s Right Prox ICA EDV 29 cm/s Right Mid ICA EDV 23 cm/s Right Distal ICA EDV 25 cm/s Right ECA EDV 18 cm/s Right Vert EDV 21 cm/s BC EDV 12 cm/s Right Prox SCA EDV 0 cm/s Measurements Name Value Left PSV Left Prox CCA PSV 96 cm/s Left Mid CCA PSV 98 cm/s Left Distal CCA PSV 101 cm/s Left Prox ICA PSV 75 cm/s Left Mid ICA PSV 88 cm/s Left Distal ICA PSV 92 cm/s Left ECA PSV 133 cm/s Left Vert PSV 59 cm/s Left Prox SCA PSV 95 cm/s Lt ICA/CCA Ratio 0.7 Measurements Name Value Left EDV Left Prox CCA EDV 27 cm/s Left Mid CCA EDV 25 cm/s Left Distal CCA EDV 25 cm/s Left Prox ICA EDV 23 cm/s Left Mid ICA EDV 29 cm/s Left Distal ICA EDV 32 cm/s Left ECA EDV 20 cm/s Left Vert EDV 17 cm/s Left Prox SCA EDV 0 cm/s Right Findings * No plaque noted in the right common carotid artery. * No plaque noted in the right external carotid artery. * Homogeneous plaque noted in the right internal carotid artery. * No significant atherosclerotic plaque noted with normal Doppler flow velocities in all right carotid segments. Left Findings * No plaque noted in the left external carotid artery. * Heterogeneous plaque noted in the left common carotid artery. * Heterogeneous plaque noted in the left internal carotid artery. * No significant atherosclerotic plaque noted with normal Doppler flow velocities in all left carotid segments. Risk Factors Patient has a history of CAD, hyperlipidemia and hypertension. . Report Signatures Finalized by Harsh Harvey MD, RPVI on 12/24/2019 01:03 PM [facility] CKMBon 07-22-2018 CK.MB [Mass/Vol] 1.8 ng/mL Normal 0.0-5.0 [facility] Comment on above: Performed By: #### 1 [id number] #### MICHAEL [employer] [address] [place] [address] CMPon 07-22-2018 Albumin [Mass/Vol] 4.0 g/dL Normal 3.4-5.0 [facility] Comment on above: Performed By: #### 2 [id number] #### [facility] [employer] [address] [place] [address] Albumin/Globulin [Mass ratio] 1.4 {ratio} Normal 1.1-1.9 [facility] Comment on above: Performed By: #### 2 [id number] #### MICHAEL [employer] [address] [place] [address] Alk Phos 107 Int._Unit/L Normal 33-136 [facility] Comment on above: Performed By: #### 2 [id number] #### MICHAEL [employer] [address] [place] [address] ALT [Catalytic activity/Vol] 45 Int._Unit/L Normal 10-52 [facility] Comment on above: Performed By: #### 2 [id number] #### MICHAEL [employer] [address] [place] [address] Anion gap [Moles/Vol] 10 mmol/L Normal 10-20 [facility] Comment on above: Performed By: #### 2 [id number] #### MICHAEL [employer] [address] [place] [address] AST [Catalytic activity/Vol] 31 Int._Unit/L Normal 9-39 [facility] Comment on above: Performed By: #### 2 [id number] #### MICHAEL [employer] [address] [place] [address] Bili Total 0.42 mg/dL Normal 0.00-1.20 [facility] Comment on above: Performed By: #### 2 [id number] #### MICHAEL [employer] [address] [place] [address] Calcium [Mass/Vol] 8.9 mg/dL Normal 8.6-10.3 [facility] Comment on above: Performed By: #### 2 [id number] #### MICHAEL [employer] [facility] [place] [address] Chloride [Moles/Vol] 104 mmol/L Normal 98-107 [facility] Comment on above: Performed By: #### 2 [id number] #### MICHAEL [employer] [facility] [place] [address] CO2 [Moles/Vol] 28.0 mmol/L Normal 21.0-32.0 [facility] Comment on above: Performed By: #### 2 102743 #### MICHAEL [employer] [facility] [place] [address] Creatinine [Mass/Vol] 1.2 mg/dL Normal 0.5-1.3 [facility] Comment on above: Performed By: #### 2 029441 #### MICHAEL [employer] [facility] [place] [address] Globulin (S) [Mass/Vol] 3.0 g/dL Normal 2.0-4.0 [facility] Comment on above: Performed By: #### 2 047173 #### MICHAEL [employer] [address] [place] [address] Glucose [Mass/Vol] 158 mg/dL High 70-99 [facility] Comment on above: Performed By: #### 2 [id number] #### MICHAEL [employer] [address] [place] [address] Potassium [Moles/Vol] 3.8 mmol/L Normal 3.5-5.3 [facility] Comment on above: Performed By: #### 2 [id number] #### MICHAEL [employer] [address] [place] [address] Protein [Mass/Vol] 6.8 g/dL Normal 6.4-8.2 [facility] Comment on above: Performed By: #### 2 975300 #### MICHAEL [employer] [address] [place] [address] Sodium [Moles/Vol] 138 mmol/L Normal 136-145 [facility] Comment on above: Performed By: #### 2 960406 #### MICHAEL [employer] [facility] [place] [address] Urea nitrogen [Mass/Vol] 20 mg/dL Normal 6-23 [facility] Comment on above: Performed By: #### 2 568392 #### MICHAEL [employer] [facility] [place] [address] Urea nitrogen/Creatinine [Mass ratio] 16.7 ratio Normal 5.4-30.0 [facility] Comment on above: Performed By: #### 2 648591 #### MICHAEL [employer] [facility] [place] [address] Influenza A&B Agon 9 Influenzae A Ag Negative Normal Negative [facility] Comment on above: Result Comment: A ne gative test result does not exclude infection with influenza A and B. Therefore, the results obtained should be used in conjunction with clinical findings to make an accurate diagnosis. Performed By: #### 1 [id number] #### MICHAEL [employer] , Influenzae B Ag Negative Normal Negative [facility] Comment on above: Performed By: #### 1 [id number] #### MICHAEL [employer] , Troponin-Ion 07-22-2018 Troponin I.cardiac [Mass/Vol] ng/mL Normal .00-.03 [facility] Comment on above: Performed By: #### 2 [id number] #### MICHAEL [employer] [address] [place] [address] XR Chest 2 Viewson 9 XR Chest 2 Views Exam Date/Time: 07/21/2018 22:11 EST Reason for Exam: Cough Report STUDY: XR Chest 2 Views; 07/21/2018 10:11 pm INDICATION: Cough. COMPARISON: 07/08/2012 ACCESSION NUMBER(S): [id number] ORDERING CLINICIAN: Servando King FINDINGS: CARDIOMEDIASTINAL SILHOUETTE: Cardiomediastinal silhouette is enlarged. The patient is status post sternotomy. LUNGS: Lungs are clear. ABDOMEN: No remarkable upper abdominal findings. BONES: No acute osseous changes. IMPRESSION: Cardiomegaly. No acute infiltrate FINAL REPORT Dictated: 07/21/2018 10:16 pm Massimo Gabriel MD Signed (Electronic Signature): 07/21/2018 10:16 pm Signed by: Massimo Gabriel MD Technologist: SR Normal [facility] eGFRon 07-22-2018 GFR/1.73 sq M predicted among non-blacks MDRD (S/P/Bld) [Vol rate/Area] mL/min/{1.73_m2} Normal [facility] Comment on above: Order Comment: Order added by Discern Expert. Performed By: #### 1 [id number] #### MICHAEL [employer] [address] [place] [address] Auto Diffon 07-21-2018 Basophils (Bld) [#/Vol] 0.0 E3/mcL Normal 0.0-0.2 [facility] Comment on above: Order Comment: Order Added by Discern Expert. Performed By: #### 2 [id number] #### MICHAEL [employer] [address] [place] [address] Basophils/100 WBC (Bld) 0.4 % Normal 0.0-2.0 [facility] Comment on above: Order Comment: Order Added by Discern Expert. Performed By: #### 2 [id number] #### MICHAEL [employer] [address] [place] [address] Eos Absolute 0.1 E3/mcL Normal 0.0-0.7 [facility] Comment on above: Order Comment: Order Added by Discern Expert. Performed By: #### 2 984295 #### MICHAEL [employer] [address] [place] [address] Eosinophils/100 WBC (Bld) 1.5 % Normal 0.0-11.0 [facility] Comment on above: Order Comment: Order Added by Discern Expert. Performed By: #### 2 [id number] #### MICHAEL [employer] [address] [place] [address] Lymphocytes (Bld) [#/Vol] 2.0 E3/mcL Normal 1.2-3.4 [facility] Comment on above: Order Comment: Order Added by Discern Expert. Performed By: #### 2 808575 #### MICHAEL [employer] [address] [place] [address] Lymphocytes/100 WBC (Bld) 27.7 % Normal 20.0-55.0 [facility] Comment on above: Order Comment: Order Added by Discern Expert. Performed By: #### 2 [id number] #### MICHAEL [employer] [address] [place] [address] [place] Absolute 0.7 E3/mcL Normal 0.0-0.7 [facility] Comment on above: Order Comment: Order Added by Discern Expert. Performed By: #### 2 [id number] #### MICHAEL [employer] [address] [place] [address] Monocytes/100 WBC (Bld) 9.7 % Normal 0.0-10.0 [facility] Comment on above: Order Comment: Order Added by Discern Expert. Performed By: #### 2 [id number] #### MICHAEL [employer] [address] [place] [address] Neutro Absolute 4.4 E3/mcL Normal 1.4-6.5 [facility] Comment on above: Order Comment: Order Added by Discern Expert. Performed By: #### 2 [id number] #### MICHAEL [employer] [facility] [place] [address] Neutro Auto 60.7 % Normal 37.0-75.0 [facility] Comment on above: Order Comment: Order Added by Discern Expert. Performed By: #### 2 [id number] #### MICHAEL [employer] [address] [place] [address] CBC w/ Auto Diffon 9 Erythrocyte distribution width (RBC) [Ratio] 12.6 % Normal 11.5-14.5 [facility] Comment on above: Performed By: #### 2 [id number] #### MICHAEL [employer] [facility] [place] [address] Hematocrit (Bld) [Volume fraction] 45.9 % Normal 42.0-52.0 [facility] Comment on above: Performed By: #### 2 [id number] #### MICHAEL [employer] [address] [place] [address] Hemoglobin (Bld) [Mass/Vol] 15.4 g/dL Normal 13.5-18.0 [facility] Comment on above: Performed By: #### 2 846138 #### MICHAEL [employer] [address] [place] [address] MCH (RBC) [Entitic mass] 29.4 pg Normal 27.0-31.0 [facility] Comment on above: Performed By: #### 2 [id number] #### MICHAEL [employer] [address] [place] [address] MCHC (RBC) [Mass/Vol] 33.5 g/dL Normal 33.0-37.0 [facility] Comment on above: Performed By: #### 2 365480 #### MICHAEL [employer] [address] [place] [address] MCV (RBC) [Entitic vol] 87.8 fL Normal 78.0-100.0 [facility] Comment on above: Performed By: #### 2 728496 #### MICHAEL [employer] [address] [place] [address] Platelet mean volume (Bld) [Entitic vol] 7.5 fL Normal 7.4-11.0 [facility] Comment on above: Performed By: #### 2 054970 #### MICHAEL [employer] [address] [place] [address] Platelets (Bld) [#/Vol] 165 E3/mcL Normal 130-400 [facility] Comment on above: Performed By: #### 2 086634 #### MICHAEL [employer] [address] [place] [address] RBC (Bld) [#/Vol] 5.23 E6/mcL Normal 3.90-6.10 [facility] Comment on above: Performed By: #### 2 [id number] #### MICHAEL [employer] [address] [place] [address] WBC (Bld) [#/Vol] 7.3 E3/mcL Normal 3.6-11.0 [facility] Comment on above: Performed By: #### 2 967224 #### MICHAEL [facility] [place] [address] Vital Signs Date Time Vital Sign Value Performing Clinician Facility 01-18-2025 09:01-0400 Body height 162.[address] Lowell Malik MD Work Phone: [facility] 01-18-2025 09:01-0400 Body mass index (BMI) [Ratio] 35.2 kg/m2 Dr. Lowell Malik MD Work Phone: 0(298)424-269696 [place] [address] 01-18-2025 09:01-0400 Body weight 92.[address] Lowell Malik MD Work Phone: 2(416)820-677496 [place] [address] 01-18-2025 09:01-0400 Diastolic blood pressure 68 mm[Hg] Dr. Lowell Malik MD Work Phone: 2(025)255-904396 [place] [address] 01-18-2025 09:01-0400 Heart rate 44 /min Dr. Lowell Malik MD Work Phone: 0(736)812-065396 [place] [address] 01-18-2025 09:01-0400 Respiratory rate 16 /min Dr. Lowell Malik MD Work Phone: 2(038)547-510363 [address] 01-18-2025 09:01-0400 Systolic blood pressure 131 mm[Hg] Dr. Lowell Malik MD Work Phone: [facility] 12-23-2024 08:44-0400 Body height 170.2 cm Maria Malik MD Work Phone: [facility] 12-23-2024 08:44-0400 Body mass index (BMI) [Ratio] 32.04 kg/m2 Maria Malik MD Work Phone: [facility] 12-23-2024 08:44-0400 Body weight 92.81 kg Maria Malik MD Work Phone: [facility] 12-23-2024 08:44-0400 Diastolic blood pressure 80 mm[Hg] Maria Malik MD Work Phone: [facility] 12-23-2024 08:44-0400 Heart rate 48 /min Maria Malik MD Work Phone: [facility] 12-23-2024 08:44-0400 SaO2% (BldA) [Mass fraction] 94 % Maria Malik MD Work Phone: [facility] 12-23-2024 08:44-0400 Systolic blood pressure 130 mm[Hg] Maria Malik MD Work Phone: [facility] 12-20-2024 08:32-0400 Body height 167.6 cm Nellie Owens MD Work Phone: [facility] 12-20-2024 08:32-0400 Body mass index (BMI) [Ratio] 32.93 kg/m2 Nellie Owens MD Work Phone: [facility] 12-20-2024 08:32-0400 Body weight 92.53 kg Nellie Owens MD Work Phone: [facility] 12-20-2024 08:32-0400 Diastolic blood pressure 55 mm[Hg] Nellie Owens MD Work Phone: [facility] 12-20-2024 08:32-0400 Heart rate 46 /min Nellie Owens MD Work Phone: [facility] 12-20-2024 08:32-0400 Systolic blood pressure 129 mm[Hg] Nellie Owens MD Work Phone: [facility] 12-03-2024 08:58-0400 Body height 167.6 cm Taj Ballard MD Work Phone: [facility] 12-03-2024 08:58-0400 Body mass index (BMI) [Ratio] 32.93 kg/m2 Taj Ballard MD Work Phone: [facility] 12-03-2024 08:58-0400 Body weight 92.53 kg Taj Ballard MD Work Phone: [facility] 12-03-2024 08:58-0400 Diastolic blood pressure 51 mm[Hg] Taj Ballrad MD Work Phone: [facility] 12-03-2024 08:58-0400 Heart rate 61 /min Taj Ballard MD Work Phone: [facility] 12-03-2024 08:58-0400 Systolic blood pressure 139 mm[Hg] Taj Ballard MD Work Phone: [facility] 11-24-2024 09:30-0400 Body temperature 98 [degF] Dr. Lowell Malik MD Work Phone: [facility] 11-24-2024 09:30-0400 Body weight 94.[address] Lowell Malik MD Work Phone: [facility] 11-24-2024 09:30-0400 Diastolic blood pressure 60 mm[Hg] Dr. Lowell Malik MD Work Phone: [facility] 11-24-2024 09:30-0400 Heart rate 60 /min Dr. Lowell Malik MD Work Phone: [facility] 11-24-2024 09:30-0400 Respiratory rate 16 /min Dr. Lowell Malik MD Work Phone: [facility] 11-24-2024 09:30-0400 SaO2% (BldA) [Mass fraction] 96 % Dr. Lowell Malik MD Work Phone: [facility] 11-24-2024 09:30-0400 Systolic blood pressure 143 mm[Hg] Dr. Lowell Malik MD Work Phone: [facility] 10-29-2024 10:38-0400 Body height 162.[address] Lowell Malik MD Work Phone: [facility] 10-29-2024 10:38-0400 Body mass index (BMI) [Ratio] 35 kg/m2 Dr. Lowell Malik MD Work Phone: [facility] 10-29-2024 10:38-0400 Body weight 92.[address] Lowell Malik MD Work Phone: [facility] 10-29-2024 10:38-0400 Diastolic blood pressure 74 mm[Hg] Dr. Lowell Malik MD Work Phone: [facility] 10-29-2024 10:38-0400 Heart rate 61 /min Dr. Lowell Malik MD Work Phone: [facility] 10-29-2024 10:38-0400 Respiratory rate 14 /min Dr. Lowell Malik MD Work Phone: [facility] 10-29-2024 10:38-0400 SaO2% (BldA) [Mass fraction] 94 % Dr. Lowell Malik MD Work Phone: [facility] 10-29-2024 10:38-0400 Systolic blood pressure 149 mm[Hg] Dr. Lowell Malik MD Work Phone: [facility] 10-21-2024 15:58-0400 Body mass index (BMI) [Ratio] 34.7 kg/m2 Dr. Lowell Malik MD Work Phone: [facility] 10-21-2024 13:23-0400 Body temperature 97.8 [degF] Dr. Lowell Malik MD Work Phone: [facility] 10-21-2024 13:23-0400 Diastolic blood pressure 63 mm[Hg] Dr. Lowell Malik MD Work Phone: [facility] 10-21-2024 13:23-0400 Heart rate 79 /min Dr. Lowell Malik MD Work Phone: [facility] 10-21-2024 13:23-0400 Respiratory rate 16 /min Dr. Lowell Malik MD Work Phone: [facility] 10-21-2024 13:23-0400 SaO2% (BldA) [Mass fraction] 97 % Dr. Lowell Malik MD Work Phone: [facility] 10-21-2024 13:23-0400 Systolic blood pressure 141 mm[Hg] Dr. Lowell Malik MD Work Phone: [facility] 10-21-2024 12:53-0400 Body weight 91.[address] Lowell Malik MD Work Phone: [facility] 06-21-2024 08:53-0500 Body height 170.2 cm Maria Malik MD Work Phone: [facility] 06-21-2024 08:53-0500 Body mass index (BMI) [Ratio] 33.52 kg/m2 Maria Malik MD Work Phone: [facility] 06-21-2024 08:53-0500 Body weight 97.07 kg Maria Malik MD Work Phone: [facility] 06-21-2024 08:53-0500 Diastolic blood pressure 80 mm[Hg] Maria Malik MD Work Phone: [facility] 06-21-2024 08:53-0500 Heart rate 50 /min Maria Malik MD Work Phone: [facility] 06-21-2024 08:53-0500 SaO2% (BldA) [Mass fraction] 94 % Maria Malik MD Work Phone: [facility] 06-21-2024 08:53-0500 Systolic blood pressure 140 mm[Hg] Maria Malik MD Work Phone: [facility] 12-22-2023 08:16-0400 Body height 170.2 cm Maria Malik MD Work Phone: [facility] 12-22-2023 08:16-0400 Body mass index (BMI) [Ratio] 32.47 kg/m2 Maria Malik MD Work Phone: [facility] 12-22-2023 08:16-0400 Body weight 94.03 kg Maria Malik MD Work Phone: [facility] 12-22-2023 08:16-0400 Diastolic blood pressure 80 mm[Hg] Maria Malik MD Work Phone: 4(797)391-831045 [address] 12-22-2023 08:16-0400 Heart rate 75 /min Maria Malik MD Work Phone: [facility] 12-22-2023 08:16-0400 SaO2% (BldA) [Mass fraction] 96 % Maria Malik MD Work Phone: 0(815)001-886536 [place] [address] 12-22-2023 08:16-0400 Systolic blood pressure 140 mm[Hg] Maria Malik MD Work Phone: 4(740)218-043945 [address] 06-20-2023 08:14-0500 Body height 170.2 cm Maria Malik MD Work Phone: 5(841)644-466945 [address] 06-20-2023 08:14-0500 Body mass index (BMI) [Ratio] 30.73 kg/m2 Maria Malik MD Work Phone: 2(285)724-650836 [place] [address] 06-20-2023 08:14-0500 Body weight 89 kg Maria Malik MD Work Phone: 0(460)343-441136 [place] [address] 06-20-2023 08:14-0500 Diastolic blood pressure 60 mm[Hg] Maria Malik MD Work Phone: 6(730)003-541436 [place] [address] 06-20-2023 08:14-0500 Heart rate 51 /min Maria Malik MD Work Phone: 3(643)155-721336 [place] [address] 06-20-2023 08:14-0500 SaO2% (BldA) [Mass fraction] 97 % Maria Malik MD Work Phone: 6(569)856-816736 [place] [address] 06-20-2023 08:14-0500 Systolic blood pressure 124 mm[Hg] Maria Malik MD Work Phone: [facility] 03-21-2023 08:33-0400 Body height 170.2 cm Maria Malik MD Work Phone: [facility] 03-21-2023 08:33-0400 Body mass index (BMI) [Ratio] 31.39 kg/m2 Maria Malik MD Work Phone: [facility] 03-21-2023 08:33-0400 Body weight 90.9 kg Maria Malik MD Work Phone: [facility] 03-21-2023 08:33-0400 Diastolic blood pressure 60 mm[Hg] Maria Malik MD Work Phone: [facility] 03-21-2023 08:33-0400 Heart rate 83 /min Maria Malik MD Work Phone: [facility] 03-21-2023 08:33-0400 SaO2% (BldA) [Mass fraction] 95 % Maria Malik MD Work Phone: [facility] 03-21-2023 08:33-0400 Systolic blood pressure 120 mm[Hg] Maria Malik MD Work Phone: [facility] 03-18-2023 13:00-0400 Body temperature 97.8 [degF] Dr. Lowell Malik Work Phone: [facility] 03-18-2023 13:00-0400 Diastolic blood pressure 74 mm[Hg] Dr. Lowell Malik Work Phone: [facility] 03-18-2023 13:00-0400 Heart rate 69 /min Dr. Lowell Malik Work Phone: [facility] 03-18-2023 13:00-0400 Respiratory rate 15 /min Dr. Lowell Malik Work Phone: [facility] 03-18-2023 13:00-0400 SaO2% (BldA) [Mass fraction] 95 % Dr. Lowell Malik Work Phone: [facility] 03-18-2023 13:00-0400 Systolic blood pressure 152 mm[Hg] Dr. Lowell Malik Work Phone: [facility] 03-18-2023 12:00-0400 Inhaled oxygen flow rate 4 L/min Dr. Lowell Malik Work Phone: [facility] 03-18-2023 06:26-0400 Body height 167.[address] Lowell Malik Work Phone: [facility] 03-18-2023 06:26-0400 Body mass index (BMI) [Ratio] 31.6 kg/m2 Dr. Lowell Malik Work Phone: [facility] 03-18-2023 06:26-0400 Body weight [address] Lowell Malik Work Phone: [facility] 03-11-2023 14:53-0400 Body mass index (BMI) [Ratio] 32.3 kg/m2 Dr. Lowell Malik Work Phone: [facility] 03-11-2023 14:53-0400 Body weight 90.[address] Lowell Malik Work Phone: [facility] 03-07-2023 20:55-0400 Diastolic blood pressure 95 mm[Hg] Maria Malik Other Phone: [facility] 03-07-2023 20:55-0400 Heart rate 66 /min Maria Malik Other Phone: [facility] 03-07-2023 20:55-0400 SaO2% (BldA) [Mass fraction] 96 % Maria Malik Other Phone: [facility] 03-07-2023 20:55-0400 Systolic blood pressure 145 mm[Hg] Maria Malik Other Phone: [facility] 03-07-2023 18:18-0400 Body height 162.5 cm Maria Malik Other Phone: [facility] 03-07-2023 18:18-0400 Body temperature 98.06 [degF] Maria Malik Other Phone: [facility] 03-07-2023 18:18-0400 Body weight 90 kg Maria Malik Other Phone: [facility] 03-07-2023 18:18-0400 Respiratory rate 16 /min Maria Malik Other Phone: [facility] 12-17-2022 06:51-0400 Body height 162.[address] Lowell Malik Work Phone: [facility] 12-17-2022 06:51-0400 Body weight 92.[address] Lowell Malik Work Phone: [facility] 12-16-2022 07:17-0400 Body mass index (BMI) [Ratio] 34.8 kg/m2 Dr. Lowell Malik Work Phone: [facility] 11-29-2022 08:54-0400 Body height 170.2 cm Maria Malik MD Work Phone: [facility] 11-29-2022 08:54-0400 Body mass index (BMI) [Ratio] 31.59 kg/m2 Maria Malik MD Work Phone: [facility] 11-29-2022 08:54-0400 Body weight 91.49 kg Maria Malik MD Work Phone: [facility] 11-29-2022 08:54-0400 Diastolic blood pressure 60 mm[Hg] Maria Malik MD Work Phone: [facility] 11-29-2022 08:54-0400 Heart rate 55 /min Maria Malik MD Work Phone: [facility] 11-29-2022 08:54-0400 SaO2% (BldA) [Mass fraction] 95 % Maria Malik MD Work Phone: [facility] 11-29-2022 08:54-0400 Systolic blood pressure 138 mm[Hg] Maria Malik MD Work Phone: [facility] 11-27-2022 10:01-0400 Body weight 92.[address] Lowell Malik Work Phone: [facility] 11-27-2022 10:01-0400 Diastolic blood pressure 68 mm[Hg] Dr. Lowell Malik Work Phone: [facility] 11-27-2022 10:01-0400 Heart rate 57 /min Dr. Lowell Malik Work Phone: [facility] 11-27-2022 10:01-0400 Respiratory rate 16 /min Dr. Lowell Malik Work Phone: [facility] 11-27-2022 10:01-0400 Systolic blood pressure 142 mm[Hg] Dr. Lowell Malik Work Phone: [facility] 11-27-2022 08:25-0400 Body height 162.[address] Lowell Malik Work Phone: [facility] 08-28-2022 08:55-0500 Body height 170.18 cm Maria Malik Work Phone: [facility] Work Phone: 08-28-2022 08:55-0500 Body mass index (BMI) [Ratio] 32.34 kg/m2 Maria Malik Work Phone: -[facility] Work Phone: 08-28-2022 08:55-0500 Body surface area Derived from formula 2.05 m2 Maria Malik Work Phone: [facility] Work Phone: 08-28-2022 08:55-0500 Body weight 93.67 kg Maria Malik Work Phone: [facility] Work Phone: 08-28-2022 08:55-0500 Diastolic blood pressure 80 mm[Hg] Maria Malik Work Phone: [facility] Work Phone: 08-28-2022 08:55-0500 Heart rate 63 /min Maria Malik Work Phone: [facility] Work Phone: 08-28-2022 08:55-0500 SaO2% (BldA) [Mass fraction] 95 % Maria Malik Work Phone: [facility] Work Phone: 08-28-2022 08:55-0500 Systolic blood pressure 160 mm[Hg] Maria Malik Work Phone: [facility] Work Phone: 03-29-2022 08:22-0400 Diastolic blood pressure 72 mm[Hg] Felecia Hamilton MD Work Phone: [facility] 03-29-2022 08:22-0400 Systolic blood pressure 147 mm[Hg] Felecia Hamilton MD Work Phone: [facility] 03-29-2022 08:15-0400 Body height 167.6 cm Felecia Hamilton MD Work Phone: [facility] 03-29-2022 08:15-0400 Body mass index (BMI) [Ratio] 32.56 kg/m2 Felecia Hamilton MD Work Phone: [facility] 03-29-2022 08:15-0400 Body weight 91.49 kg Felecia Hamilton MD Work Phone: [facility] 03-29-2022 08:15-0400 Heart rate 64 /min Felecia Hamilton MD Work Phone: [facility] 03-29-2022 08:15-0400 SaO2% (BldA) [Mass fraction] 94 % Felecia Hamilton MD Work Phone: [facility] 02-26-2022 08:08-0400 Body height 170.18 cm Maria Malik Work Phone: [facility] Work Phone: 02-26-2022 08:08-0400 Body mass index (BMI) [Ratio] 32.45 kg/m2 Maria Malik Work Phone: [facility] Work Phone: 02-26-2022 08:08-0400 Body surface area Derived from formula 2.05 m2 Maria Malik Work Phone: [facility] Work Phone: 02-26-2022 08:08-0400 Body weight 93.98 kg Maria Malik Work Phone: [facility] Work Phone: 02-26-2022 08:08-0400 Diastolic blood pressure 60 mm[Hg] Maria Malik Work Phone: [facility] Work Phone: 02-26-2022 08:08-0400 Heart rate 61 /min Maria Morris Malik Work Phone: [facility] Work Phone: 02-26-2022 08:08-0400 SaO2% (BldA) [Mass fraction] 95 % Chilangoomar Alexandra Malik Work Phone: [email or web address] Work Phone: 02-26-2022 08:08-0400 Systolic blood pressure 140 mm[Hg] Maria Malik Work Phone: [facility] Work Phone: 12-20-2021 09:41-0400 Body height 167.6 cm Felecia Hamilton MD Work Phone: [facility] 12-20-2021 09:41-0400 Body mass index (BMI) [Ratio] 33.18 kg/m2 Felecia Hamilton MD Work Phone: [facility] 12-20-2021 09:41-0400 Body weight 93.26 kg Felecia Hamilton MD Work Phone: [facility] 12-20-2021 09:41-0400 Diastolic blood pressure 73 mm[Hg] Felecia Hamilton MD Work Phone: [facility] 12-20-2021 09:41-0400 Heart rate 55 /min Felecia Hamilton MD Work Phone: [facility] 12-20-2021 09:41-0400 SaO2% (BldA) [Mass fraction] 95 % Felecia Hamilton MD Work Phone: [facility] 12-20-2021 09:41-0400 Systolic blood pressure 127 mm[Hg] Felecia Hamilton MD Work Phone: [facility] 09-25-2021 09:14-0400 Diastolic blood pressure 75 mm[Hg] Felecia Hamilton MD Work Phone: [facility] 09-25-2021 09:14-0400 Systolic blood pressure 147 mm[Hg] Felecia Hamilton MD Work Phone: [facility] 09-25-2021 09:07-0400 Body height 167.6 cm Felecia Hamilton MD Work Phone: [facility] 09-25-2021 09:07-0400 Body mass index (BMI) [Ratio] 32.64 kg/m2 Felecia Hamilton MD Work Phone: [facility] 09-25-2021 09:07-0400 Body weight 91.72 kg Felecia Hamilton MD Work Phone: [facility] 09-25-2021 09:07-0400 Heart rate 65 /min Felecia Hamilton MD Work Phone: [facility] 09-25-2021 09:07-0400 SaO2% (BldA) [Mass fraction] 95 % Felecia Hamilton MD Work Phone: [facility] 06-14-2021 16:34-0500 Body height 170.18 cm Maria Malik Work Phone: -[facility] Work Phone: 06-14-2021 16:34-0500 Body mass index (BMI) [Ratio] 30.57 kg/m2 Chilangoomar Malik Work Phone: -[facility] Work Phone: 06-14-2021 16:34-0500 Body surface area Derived from formula 2 m2 Chilangoomar Jind Work Phone: -[facility] Work Phone: 06-14-2021 16:34-0500 Body temperature 97.1 [degF] Chilangoomar Malik Work Phone: -[facility] Work Phone: 06-14-2021 16:34-0500 Body weight 88.54 kg Maria Malik Work Phone: -[facility] Work Phone: 06-14-2021 16:34-0500 Diastolic blood pressure 58 mm[Hg] Chilangoomar Alexandra Malik Work Phone: -[facility] Work Phone: 06-14-2021 16:34-0500 Heart rate 63 /min Chilangoraulitoarlyn Malik Work Phone: -[facility] Work Phone: 06-14-2021 16:34-0500 SaO2% (BldA) [Mass fraction] 97 % Chilangoraulitoarlyn Morris Malik Work Phone: -[facility] Work Phone: 06-14-2021 16:34-0500 Systolic blood pressure 120 mm[Hg] Maria Malik Work Phone: -[facility] Work Phone: 06-14-2021 10:49-0500 Body height 170.18 cm Maria Malik Work Phone: -[facility] Work Phone: 06-14-2021 10:49-0500 Body mass index (BMI) [Ratio] 31.48 kg/m2 Maria Malik Work Phone: -[facility] Work Phone: 06-14-2021 10:49-0500 Body surface area Derived from formula 2.03 m2 Maria Malik Work Phone: -[facility] Work Phone: 06-14-2021 10:49-0500 Body weight 91.17 kg Maria Malik Work Phone: -[facility] Work Phone: 06-14-2021 10:49-0500 Diastolic blood pressure 68 mm[Hg] Maria Malik Work Phone: -[facility] Work Phone: 06-14-2021 10:49-0500 Heart rate 60 /min Maria Malik Work Phone: -[facility] Work Phone: 06-14-2021 10:49-0500 Systolic blood pressure 122 mm[Hg] Maria Malik Work Phone: -[facility] Work Phone: 06-05-2021 10:10-0500 Body temperature 96.44 [degF] Chilangoomar Jind Other Phone: [facility] 06-05-2021 10:10-0500 Diastolic blood pressure 60 mm[Hg] Maria Malik Other Phone: [facility] 06-05-2021 10:10-0500 Heart rate 64 /min Maria Jind Other Phone: [facility] 06-05-2021 10:10-0500 Respiratory rate 18 /min Maria Malik Other Phone: [facility] 06-05-2021 10:10-0500 SaO2% (BldA) [Mass fraction] 96 % Chilangoomar Jind Other Phone: [facility] 06-05-2021 10:10-0500 Systolic blood pressure 136 mm[Hg] Maria Malik Other Phone: [facility] 06-05-2021 08:00-0500 FiO2 21 1 Chilangoraulitoarlyn Malik Other Phone: [facility] 05-29-2021 08:56-0500 Body height 170.18 cm Maria Malik Work Phone: -[facility] Work Phone: 05-29-2021 08:56-0500 Body mass index (BMI) [Ratio] 31.56 kg/m2 Maria Malik Work Phone: -[facility] Work Phone: 05-29-2021 08:56-0500 Body surface area Derived from formula 2.03 m2 Maria Malik Work Phone: [facility] Work Phone: 05-29-2021 08:56-0500 Body temperature 96.8 [degF] Maria Malik Work Phone: -[facility] Work Phone: 05-29-2021 08:56-0500 Body weight 91.4 kg Maria Malik Work Phone: -[facility] Work Phone: 05-29-2021 08:56-0500 Diastolic blood pressure 62 mm[Hg] Chilangoomar Alexandra Malik Work Phone: -[facility] Work Phone: 05-29-2021 08:56-0500 Heart rate 52 /min Chilangoomar Malik Work Phone: -[facility] Work Phone: 05-29-2021 08:56-0500 SaO2% (BldA) [Mass fraction] 97 % Chilangoomar Malik Work Phone: -[facility] Work Phone: 05-29-2021 08:56-0500 Systolic blood pressure 126 mm[Hg] Maria Morris Malik Work Phone: -[facility] Work Phone: 04-10-2021 11:43-0400 Body height 170.18 cm Chilangoomar Jind Work Phone: -[facility] Work Phone: 04-10-2021 11:43-0400 Body mass index (BMI) [Ratio] 30.7 kg/m2 Chilangoomar Jind Work Phone: -[facility] Work Phone: 04-10-2021 11:43-0400 Body surface area Derived from formula 2 m2 Maria Morris Malik Work Phone: -[facility] Work Phone: 04-10-2021 11:43-0400 Body weight 88.91 kg Garyarlyn Alexandra Malik Work Phone: -[facility] Work Phone: 04-10-2021 11:43-0400 Diastolic blood pressure 78 mm[Hg] Maria Malik Work Phone: -[facility] Work Phone: 04-10-2021 11:43-0400 Heart rate 70 /min Maria Malik Work Phone: -[facility] Work Phone: 04-10-2021 11:43-0400 Systolic blood pressure 118 mm[Hg] Maria Malik Work Phone: -[facility] Work Phone: 04-02-2021 10:57-0400 Body height 170.18 cm Maria Malik Work Phone: [facility] Work Phone: 04-02-2021 10:57-0400 Body mass index (BMI) [Ratio] 31.03 kg/m2 Maria Malik Work Phone: -[facility] Work Phone: 04-02-2021 10:57-0400 Body surface area Derived from formula 2.01 m2 Maria Malik Work Phone: -[facility] Work Phone: 04-02-2021 10:57-0400 Body temperature 96.4 [degF] Maria Malik Work Phone: [email or web address] Work Phone: 04-02-2021 10:57-0400 Body weight 89.87 kg Maria Malik Work Phone: [facility] Work Phone: 04-02-2021 10:57-0400 Diastolic blood pressure 62 mm[Hg] Maria Malik Work Phone: [facility] Work Phone: 04-02-2021 10:57-0400 Heart rate 61 /min Maria Malik Work Phone: -[facility] Work Phone: 04-02-2021 10:57-0400 SaO2% (BldA) [Mass fraction] 98 % Maria Malik Work Phone: -[facility] Work Phone: 04-02-2021 10:57-0400 Systolic blood pressure 110 mm[Hg] Maria Malik Work Phone: [facility] Work Phone: 03-24-2021 13:20-0400 Body temperature 98.96 [degF] Maria Malik Other Phone: [facility] 03-24-2021 13:20-0400 Diastolic blood pressure 69 mm[Hg] Maria Malik Other Phone: [facility] 03-24-2021 13:20-0400 Heart rate 77 /min Maria Malik Other Phone: [facility] 03-24-2021 13:20-0400 Respiratory rate 18 /min Maria Malik Other Phone: [facility] 03-24-2021 13:20-0400 SaO2% (BldA) [Mass fraction] 94 % Maria Malik Other Phone: [facility] 03-24-2021 13:20-0400 Systolic blood pressure 130 mm[Hg] Maria Malik Other Phone: [facility] 11-22-2020 09:08-0400 Body height 170.18 cm Maria Malik Work Phone: -[facility] Work Phone: 11-22-2020 09:08-0400 Body mass index (BMI) [Ratio] 32.11 kg/m2 Maria Malik Work Phone: -[facility] Work Phone: 11-22-2020 09:08-0400 Body surface area Derived from formula 2.04 m2 Maria Malik Work Phone: [facility] Work Phone: 11-22-2020 09:08-0400 Body temperature 97.1 [degF] Maria Malik Work Phone: [facility] Work Phone: 11-22-2020 09:08-0400 Body weight 92.99 kg Maria Malik Work Phone: [facility] Work Phone: 11-22-2020 09:08-0400 Diastolic blood pressure 66 mm[Hg] Maria Malik Work Phone: [facility] Work Phone: 11-22-2020 09:08-0400 Heart rate 59 /min Maria Malik Work Phone: [facility] Work Phone: 11-22-2020 09:08-0400 SaO2% (BldA) [Mass fraction] 97 % Maria Malik Work Phone: [facility] Work Phone: 11-22-2020 09:08-0400 Systolic blood pressure 124 mm[Hg] Maria Malik Work Phone: [facility] Work Phone: 08-28-2020 09:12-0500 BMI (Body Mass Index) 32.28 kg/m2 Tony Fitzpatrick [facility] 08-28-2020 09:12-0500 Body weight 90.72 kg Tony Fitzpatrick [facility] 08-28-2020 09:12-0500 BP Diastolic 63 mm[Hg] Tony Fitzpatrick [facility] 08-28-2020 09:12-0500 BP Systolic 128 mm[Hg] Tony Fitzpatrick [facility] 08-28-2020 09:12-0500 Height 167.6 cm Tony Fitzpatrick [facility] 08-28-2020 09:12-0500 Pulse (Heart Rate) 58 /min Tony Fitzpatrick [facility] 08-28-2020 09:12-0500 Pulse Oximetry 94 % Tony Fitzpatrick [facility] 04-14-2019 11:09-0400 Pulse Oximetry 96 % Maria Malik [facility] Work Phone: 04-14-2019 11:05-0400 BMI (Body Mass Index) 31.79 kg/m2 Maria Malik [facility] Work Phone: 04-14-2019 11:05-0400 Body weight 94.05 kg Maria Malik [facility] Work Phone: 04-14-2019 11:05-0400 BP Diastolic 70 mm[Hg] Maria Malik [facility] Work Phone: Comment on above: Location: [facility]; 04-14-2019 11:05-0400 BP Systolic 148 mm[Hg] Maria Malik [facility] Work Phone: Comment on above: Location: [facility]; 04-14-2019 11:05-0400 BSA (Body Surface Area) 2.07 m2 Maria Malik -[facility] Work Phone: 04-14-2019 11:05-0400 Height 172 cm Maria Malik -[facility] Work Phone: 04-14-2019 11:05-0400 Pulse (Heart Rate) 56 /min Maria Malik [facility] Work Phone: 09-07-2018 10:17-0400 BMI (Body Mass Index) 34.46 kg/m2 Tony Fitzpatrick [facility] 09-07-2018 10:17-0400 Body weight 96.84 kg Tony Fitzpatrick [facility] 09-07-2018 10:17-0400 BP Diastolic 77 mm[Hg] Tony Fitzpatrick [facility] 09-07-2018 10:17-0400 BP Systolic 169 mm[Hg] Tony Fitzpatrick [facility] 09-07-2018 10:17-0400 Height 167.6 cm Tony Fitzpatrick [facility] 09-07-2018 10: Pulse (Heart Rate) 56 /min Tony Fitzpatrick [facility] 09-07-2018 10: Pulse Oximetry 94 % Tony Juan [facility] Encounters Encounter Date Encounter Type Care Provider Facility Start: 01-27-2025 ambulatory Canelo Garcia Facility:[facility] Start: 01-18-2025 End: 01-18-[address] Canelo Garcia MD -[facility] Work Phone: Start: 01-18-2025 End: 01-18-[address] Lowell Malik MD Work Phone: [facility] Start: 12-28-2024 End: 12-28-2024 ambulatory NELLIE OWENS Facility:[facility] Start: 12-23-2024 End: 12-23-2024 Assay of hemosiderin, quant Maria Malik MD Work Phone: [facility] Work Phone: Start: 12-23-2024 End: 12-23-2024 Patient encounter procedure Maria Malik MD Work Phone: [facility] Comment on above: Routine general medi mabel examination at health care facility (Primary Dx); Mild vascular dementia without behavioral disturbance, psychotic disturbance, mood disturbance, or anxiety; Arteriosclerosis of coronary artery; Bilateral carotid artery disease, unspecified type; Essential hypertension; Mixed hyperlipidemia; Gastroesophageal reflux disease without esophagitis; Obstructive sleep apnea syndrome; Hypersomnolence; Other polyneuropathy; B12 deficiency; Benign prostatic hyperplasia without lower urinary tract symptoms; 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 (Multi); Screening for prostate cancer; Nasal congestion Start: 12-23-2024 End: 12-23-2024 ambulatory MARIA MALIK [facility] Ambulatory Start: 12-20-2024 End: 12-20-2024 Patient encounter procedure Nellie Owens MD Work Phone: NEUROLOGY Comment on above: Arterial ischemic st roke, MCA (middle cerebral artery), right, acute (HCC) (Primary Dx); Hyperlipidemia, unspecified hyperlipidemia type; Bilateral carotid artery stenosis; Ulcerated atherosclerotic plaque of carotid artery; History of coronary artery bypass graft; [facility] (current) use of aspirin Start: 12-20-2024 End: 12-20-2024 ambulatory NELLIE OWENS [facility] Start: 12-18-2024 End: 12-18-2024 Emergency department patient visit MARIA BRANDT MALIK [facility] Start: 12-07-2024 End: 12-07-2024 Telephone encounter Taj Ballard MD Work Phone: [facility] Comment on above: Received Outside [employer] Records (Rec'd cardiac event monitor report from [employer] imported into [employer]. //) Start: 12-03-2024 End: 12-03-2024 ambulatory TAJ BALLARD [facility] Start: 12-03-2024 End: 12-03-2024 Patient encounter procedure Taj Ballard MD Work Phone: Cerebrovascular Comment on above: Dfkknc-gw-nqipvagoh syndrome (HCC) (Primary Dx); CATIE (obstructive sleep apnea) [G47.33]; MCI (mild cognitive impairment) [G31.84] Start: 12-03-2024 End: 12-03-2024 ambulatory TAJ BALLARD Facility[facility] Start: 12-01-2024 Non-patient / Non-visit Dr. Wilberto ramos MD -[facility] Start: 12-01-2024 End: 12-01-[address] Lowell Malik MD Work Phone: [facility] Work Phone: Start: 12-01-2024 End: 12-01-2024 Patient encounter procedure Radha SHAH -Cardiovascular Services Work Phone: Start: 12-01-2024 End: 12-01-2024 ambulatory Lowell Malik Facility:[facility] Start: 11-29-2024 End: 12-20-2024 Telephone encounter Taj Ballard MD Work Phone: Neurology Comment on above: Imaging/Records; Ord ers Start: 11-24-2024 End: 11-24-2024 Patient encounter procedure Radha SHAH -[facility] Work Phone: Start: 11-24-2024 End: 11-24-[address] Lowell Malik MD Work Phone: [facility] Work Phone: Start: 11-02-2024 End: 11-02-[address] 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 Work Phone: Start: 10-29-2024 End: 10-29-2024 ambulatory Anali Park NP Facility:[facility] Start: 10-29-2024 Non-patient / Non-visit Dr. Lemos Of leah HOLGUIN [facility] Work Phone: Start: 10-29-2024 ambulatory Lowell Boyd Facilit y:[facility] Start: 10-29-[address] Ej zuniga DO -Cardiovascular Services Work Phone: Start: 10-21-2024 Non-patient / Non-visit Dr. Jun Reico DO [facility] Work Phone: Start: 10-21-2024 ambulatory Lowell Boyd Facilit y:[facility] Start: 10-21-2024 Non-patient / Non-visit Dr. Sonja HOLGUIN [facility] Start: 10-20-2024 End: 10-21-2024 ambulatory Lowell Malik Facility:[facility] Start: 10-20-2024 End: 10-21-2024 Evaluation and management of inpatient Dr. Ej Recio DO -Progressive Care Unit Work Phone: Start: 06-21-2024 End: 06-21-2024 Assay of hemosiderin, quant Maria Malik MD Work Phone: [facility] Work Phone: Start: 06-21-2024 End: 06-21-2024 Office outpatient visit 25 minutes Maria Malik MD Work Phone: [facility] Comment on above: Essential hypertensi on (Primary Dx); Mild vascular dementia without behavioral disturbance, psychotic disturbance, mood disturbance, or anxiety; Arteriosclerosis of coronary artery; Bilateral carotid artery disease, unspecified type ([facility]-HCC); Mixed hyperlipidemia; Gastroesophageal reflux disease without esophagitis; Obstructive sleep apnea syndrome; Hypersomnolence; Other polyneuropathy; Routine general medical examination at health care facility; Screening for prostate cancer; B12 deficiency; Benign prostatic hyperplasia without lower urinary tract symptoms Start: 06-21-2024 End: 06-21-2024 ambulatory [facility] Start: 06-21-2024 End: 06-21-2024 Encounter for general adult medical examination without abnormal findings [facility] Start: 06-07-2024 End: 06-07-2024 ambulatory COWARD Alexandra [facility] Start: 12-22-2023 End: 12-22-2023 Assay of hemosiderin, quant Maria Malik MD Work Phone: [facility] Work Phone: Start: 12-22-2023 End: 12-22-2023 Patient encounter procedure Maria Malik MD Work Phone: [facility] Comment on above: Routine general medi mabel examination at health care facility (Primary Dx); Mild vascular dementia without behavioral disturbance, psychotic disturbance, mood disturbance, or anxiety (Multi); Arteriosclerosis of coronary artery; Bilateral carotid artery disease, unspecified type ([facility]-HCC); Essential hypertension; Mixed hyperlipidemia; Gastroesophageal reflux disease without esophagitis; Obstructive sleep apnea syndrome; Hypersomnolence; Other polyneuropathy; Screening for prostate cancer; B12 deficiency; Hyperglycemia Start: 12-16-2023 End: 12-16-2023 ambulatory [facility] Start: 07-10-2023 End: 07-11-2023 ambulatory [facility] Start: 06-20-2023 End: 06-20-2023 Office outpatient visit 25 minutes Maria Malik MD Work Phone[facility] Comment on above: Mild vascular aracely ia without behavioral disturbance, psychotic disturbance, mood disturbance, or anxiety (CMS/HCC) (Primary Dx); Arteriosclerosis of coronary artery; Bilateral carotid artery disease, unspecified type (CMS/HCC); Essential hypertension; Mixed hyperlipidemia; Gastroesophageal reflux disease without esophagitis; Obstructive sleep apnea syndrome; Hypersomnolence; Other polyneuropathy Start: 06-10-2023 End: 06-10-[address] Lowell Malik Work Phone: [facility] Work Phone: Start: 05-20-2023 End: 05-20-[address] Lowell Malik Work Phone: [facility] Work Phone: Start: 05-20-2023 End: 05-20-[address] Lowell Malik Work Phone: [facility]-Physical Therapy Work Phone: Start: 04-29-2023 End: 04-29-[address] Lowell Malik Work Phone: [facility] Work Phone: Start: 03-21-2023 End: 03-21-2023 Office outpatient visit 25 minutes Maria Malik MD Work Phone: [facility] Comment on above: Obstructive sleep ap anny syndrome; Other polyneuropathy; Arteriosclerosis of coronary artery; Bilateral carotid artery disease, unspecified type (CMS/HCC); Essential hypertension; History of vascular surgery; Gastroesophageal reflux disease without esophagitis; Benign prostatic hyperplasia without lower urinary tract symptoms; Mixed hyperlipidemia; Nasal congestion; Mild vascular dementia without behavioral disturbance, psychotic disturbance, mood disturbance, or anxiety (CMS/HCC) Start: 03-18-2023 Non-patient / Non-visit Dr. Diaz Malik Work Phone: [facility] Start: 03-18-2023 End: 03-18-2023 Admission to same day surgery center Dr. Lowell Malik Work Phone: [facility]-Surgical Day Care Start: 03-18-2023 End: 03-18-[address] Lowell Malik Work Phone: [facility] Work Phone: Start: 03-13-2023 End: 03-13-[address] Lowell Malik Work Phone: [facility] Work Phone: Start: 03-11-2023 End: 03-11-[address] Lowell Malik Work Phone: [facility] Work Phone: Start: 03-11-2023 End: 03-11-[address] Lowell Malik Work Phone: [facility] Work Phone: Start: 03-07-2023 End: 03-07-2023 Emergency department patient visit Chi Aidan Ramey [facility] Emergency 14 Start: 12-17-2022 End: 12-17-2022 Admission to same day surgery center Dr. Lowell Malik Work Phone: [facility]-Legal Transcriptionist/Special Procedures Start: 12-17-2022 End: 12-17-[address] Lowell Malik Work Phone: [facility] Work Phone: Start: 12-09-2022 Non-patient / Non-visit Dr. Diaz Malik Work Phone: [facility] Start: 12-09-2022 End: 12-09-[address] Lowell Malik Work Phone: [facility] Work Phone: Start: 12-09-2022 End: 12-09-[address] Lowell Malik Work Phone: [facility]-Cardiovascular Services Start: 12-02-2022 Non-patient / Non-visit Dr. Diaz Malik Work Phone: [facility] Start: 12-02-2022 End: 12-02-[address] Lowell Malik Work Phone: [facility]-Cardiovascular Services Start: 11-29-2022 End: 11-29-2022 Office outpatient visit 25 minutes Maria Malik MD Work Phone: [facility] Comment on above: Obstructive sleep ap anny syndrome (Primary Dx); Other polyneuropathy; Arteriosclerosis of coronary artery; Bilateral carotid artery disease, unspecified type (CMS/HCC); Essential hypertension; History of vascular surgery; Gastroesophageal reflux disease without esophagitis; Benign prostatic hyperplasia without lower urinary tract symptoms; Mixed hyperlipidemia; Nasal congestion; Mild vascular dementia without behavioral disturbance, psychotic disturbance, mood disturbance, or anxiety (CMS/HCC) Start: 11-27-2022 End: 11-27-[address] Lowell Malik Work Phone: [facility] Start: 08-28-2022 Adv care pln tlkd & alt dcsn maker sharon Malik Work Phone: [facility] Work Phone: Start: 08-28-[address] Lowell Malik Facility:[id number] Start: 08-23-2022 End: 08-27-[address] [facility] Start: 03-29-2022 End: 03-29-2022 ambulatory MARIA MALIK [facility] Ambulatory Start: 03-29-2022 End: 03-29-2022 Office outpatient visit 15 minutes Felecia Hamilton MD Work Phone: [facility] Comment on above: Coronary artery dise ase involving [place] coronary artery of [place] heart without angina pectoris (Primary Dx) Start: 02-26-2022 Office outpatient vi sit 25 minutes Maria Malik Work Phone: [facility] Work Phone: Start: 02-26-[address] Lowell Malik Facility:[id number] Start: 02-18-2022 End: 02-22-2022 ambulatory [facility] Start: 12-20-2021 End: 12-20-2021 ambulatory [facility] Start: 12-20-2021 End: 12-20-2021 Office outpatient visit 25 minutes Felecia Hamilton MD Work Phone: [facility] Comment on above: Coronary artery dise ase involving [place] coronary artery of [place] heart without angina pectoris (Primary Dx); Bilateral carotid artery stenosis Start: 12-10-2021 End: 12-11-2021 ambulatory [facility] Start: 10-08-2021 End: 10-09-2021 ambulatory [facility] Start: 09-25-2021 End: 09-26-2021 ambulatory [facility] Start: 09-25-2021 End: 09-25-2021 ambulatory [facility] Ambulatory Start: 09-25-2021 End: 09-25-2021 Office outpatient visit 25 minutes Felecia Hamilton MD Work Phone: [facility] Comment on above: Coronary artery dise ase involving [place] coronary artery of [place] heart without angina pectoris (Primary Dx); Bilateral carotid artery stenosis Start: 06-18-2021 Chart Update Maria Malik Work Phone: [facility] Work Phone: Start: 06-14-2021 Postop follow up vis it related to original px Maria Malik Work Phone: [facility] Work Phone: Start: 06-04-2021 End: 06-05-2021 Evaluation and management of inpatient Matty Mcelroy [facility] 2 ACS Med Surg 08 Start: 04-19-2021 ambulatory GARYARLYN ARJUN NEELY MALIK [facility] Ambulatory Start: 04-10-2021 Office outpatient vi sit 25 minutes Maria Malik Work Phone: [facility] Work Phone: Start: 04-02-2021 Office outpatient vi sit 15 minutes Maria Malik Work Phone: [facility] Work Phone: Start: 03-29-2021 AUDIT Maria Malik Work Phone: [facility] Work Phone: Start: 03-19-2021 End: 03-24-2021 Evaluation and management of inpatient Ryan Torri Headar [facility] 3 Med Surg [facility] [id number] Start: 03-16-2021 Chart Update Maria Malik Work Phone: [facility] Work Phone: Start: 03-14-2021 End: 03-14-2021 Postop follow up visit related to original px Tami Shaffer POLICE CHIEF Work Phone: [facility] Comment on above: Surgery follow-up (P rimary Dx) Start: 03-07-2021 AUDIT Maria Malik Work Phone: [facility] Work Phone: Start: 03-07-2021 End: 03-07-2021 Follow-up encounter Ej Braden MD Work Phone: [facility] Comment on above: Surgery follow-up (P rimary Dx) Start: 02-27-2021 End: 02-27-2021 ambulatory EJ BRADEN [facility] Start: 02-01-2021 End: 02-01-2021 Documentation procedure Jeremiah Adame LPN [facility] Start: 01-31-2021 End: 01-31-2021 Office outpatient new 20 minutes Maria Malik MD Work Phone: [facility] [place] Comment on above: Carpal tunnel syndro me of right wrist (Primary Dx); Right wrist pain Start: 01-20-2021 End: 01-20-2021 Patient encounter procedure Maria Malik MD Work Phone: [facility] Comment on above: Carpal tunnel syndro me on right (Primary Dx) Start: 11-22-2020 End: 11-22-2020 Transcribe Orders Maria Malik MD Work Phone: [facility], Neuroscience Comment on above: Carpal tunnel syndro me, unspecified laterality (Primary Dx) Start: 11-22-2020 Office outpatient vi sit 25 minutes Maria Malik Work Phone: [facility] Work Phone: Start: 08-28-2020 End: 08-28-2020 Orders Only Brittany Ramey [facility] Comment on above: Coronary artery dise ase involving [place] coronary artery of [place] heart without angina pectoris (Primary Dx) Start: 08-28-2020 End: 08-28-2020 Office outpatient visit 15 minutes Tony Fitzpatrick Work Phone: [facility] Comment on above: Coronary artery dise ase involving [place] coronary artery of [place] heart without angina pectoris; Bilateral carotid artery stenosis; Mixed hyperlipidemia Start: 08-05-2020 End: 08-05-2020 Orders Only Jessy Riccimarcy Singh Work Phone: [facility] [place] Start: 02-15-2020 End: 02-15-2020 Patient encounter procedure Leobardo Malcolm Work Phone: [facility] Comment on above: Idiopathic progressi ve polyneuropathy Start: 12-24-2019 End: 12-24-2019 Subsequent hospital visit by physician Tony Fitzpatrick Work Phone: [facility] Comment on above: Bilateral carotid br uits Start: 10-18-2019 Patient encounter procedure Maria Malik -[email or web address] Work Phone: Start: 09-27-2019 End: 09-27-2019 Patient encounter procedure Tony Fitzpatrick Work Phone: [facility] Comment on above: Bilateral carotid ar kwasi stenosis; Coronary artery disease involving [place] coronary artery of [place] heart without angina pectoris; Mixed hyperlipidemia Start: 04-14-2019 Patient encounter procedure Maria Malik -[email or web address] Work Phone: Start: 09-07-2018 End: 09-07-2018 Office outpatient visit 15 minutes Tony Fitzpatrick Work Phone: [facility] Comment on above: Coronary artery dise ase involving [place] coronary artery of [place] heart without angina pectoris; Essential hypertension; Bilateral carotid artery stenosis Patient encounter procedure Maria Malik Work Phone: -[facility] Work Phone: Procedures Date Procedure Procedure Detail Performing Clinician Start: 12-14-2024 Lipid 1996 panel - S dorina or Plasma Maria Malik MD Work Phone: Start: 11-02-2024 Plain X-ray of shoulder Dr. Lowell Malik MD Work Phone: Start: 10-21-[address] Lowell Malik MD Work Phone: Start: 10-20-2024 MRI of brain without contrast Dr. Lowell Malik MD Work Phone: Start: 10-20-2024 Plain chest X-ray Dr. Tavia Malik MD Work Phone: Start: 10-20-2024 CT angiography of he ad and neck Dr. Lowell Malik MD Work Phone: Start: 10-20-2024 CT of head without contrast Dr. Lowell Malik MD Work Phone: Start: 10-20-2024 Urnls dip stick/tabl et reagent auto microscopy Dr. Lowell Malik MD Work Phone: Start: 06-07-2024 Lipid 1995 panel - S dorina or Plasma Maria Malik MD Work Phone: Start: 12-16-2023 Lipid 1996 panel - S dorina or Plasma Maria Malik MD Work Phone: Start: 07-10-2023 HOME SLEEP APNEA MARYJANE T (HSAT) MARIA MALIK Start: 06-13-2023 Lipid 1996 panel - S dorina or Plasma Maria Malik MD Work Phone: Start: 04-29-2023 Plain X-ray of shoulder Dr. Lowell Malik Work Phone: Start: 03-18-2023 Fluoroscopic guidance Alexandra Malik Work Phone: Start: 03-18-2023 Reverse prosthetic t otal arthroplasty of left shoulder Dr. Lowell Malik Work Phone: Start: 03-11-2023 CT of upper limb wit hout contrast Dr. Lowell Malik Work Phone: Start: 03-07-2023 Lipid Beth panel - S dorina or Plasma Maria Malik MD Work Phone: Start: 12-09-2022 Radionuclide imaging of perfusion of myocardium under exercise stress Dr. Lowell Malik Work Phone: Start: 09-25-2021 Ecg routine ecg w/le ast 12 lds w/i&r Felecia Hamilton MD Work Phone: Start: 02-26-2021 Decompression of med georgie nerve Maria Malik Work Phone: Start: 11-10-2020 Lipid 1996 panel - S dorina or Plasma Maria Malik MD Work Phone: Start: 08-28-2020 12 lead ECG Tony lr Work Phone: Start: 12-24-2019 Carotid artery doppl er assessment Tony Fitzpatrick Work Phone: Start: 10-29-2019 Assay of thyroid stimulating hormone tsh Maria Malik Start: 10-29-2019 Blood count complete auto&auto difrntl wbc Maria Malik Start: 10-29-2019 Comprehensive metabo lic 2000 panel Maria Malik Start: 10-29-2019 Cyanocobalamin vitam in b-12 Maria Malik Start: 10-29-2019 Hemoglobin glycosyla yaron a1c Maria Malik Start: 10-29-2019 Sedimentation rate r bc automated Maria Malik Start: 04-14-2019 Comprehensive metabo lic 2000 panel Maria Malik Start: 04-14-2019 Lipid panel Lowell Malik Start: 04-14-2019 PSA screening Gary Malik Start: 07-31-2009 History of coronary artery bypass grafting History of coronary artery bypass graft x 3 Dr. Lowell Malik Work Phone: Comment on above: DEGROOT-LAD, RSAG-Kailyn, RSAG-RCA at [place] by Juanalysa morris Coronary artery bypa ss graft Maria Malik History of coronary artery bypass grafting History of coronary artery bypass graft Nellie Owens MD Work Phone: Laparoscopic cholecystectomy Maria Malik Work Phone: Comment on above: 05/30/[address] Everton resendiz; Plan of Treatment Date Care Activity Detail Author Start: 12-14-2029 Lipid panel Lipid Panel [facility] Start: 06-07-2029 Lipid panel Lipid Panel [facility] Start: 12-15-2028 Lipid panel Lipid Panel [facility] Start: 06-13-2028 Lipid panel Lipid Panel [facility] Start: 03-07-2028 Lipid panel Lipid Panel [facility] Start: 12-15-2027 Diabetes Screening Diabetes Screenin g [facility] Start: 06-07-2027 Diabetes Screening Diabetes Screenin g [facility] Start: 12-24-2025 Medicare Annual Wellness Visit Medicare Annual Wellness Visit (AWV) [facility] Start: 11-10-2025 Lipid panel Lipid Panel [facility] Start: 06-29-2025 End: 06-29-2025 Patient encounter procedure 06/29/2025 8:00 AM EST Office Visit [facility] [address] [phone] Maria Malik MD [address] [address] [facility] Start: 06-24-2025 End: 12-23-2025 Comprehensive metabolic 2000 panel - Serum or Plasma Comprehensive Metabolic Panel Lab Routine Essential hypertension Mixed hyperlipidemia Expected: 06/24/2025 (Approximate), Expires: 12/23/2025 [facility] Service Area Work Phone: Comment on above: Expected: 06/24/2025 (Approximate), Expires: 12/23/2025 Start: 06-24-2025 End: 12-23-2025 Lipid 1996 panel - Serum or Plasma Lipid Panel Lab Routine Mixed hyperlipidemia Expected: 06/24/2025 (Approximate), Expires: 12/23/2025 [facility] Work Phone: Comment on above: Expected: 06/24/2025 (Approximate), Expires: 12/23/2025 Start: 06-24-2025 End: 12-23-2025 Prostate specific Ag [Mass/volume] in Serum or Plasma Prostate Specific Antigen, Screen Lab Routine Screening for prostate cancer Expected: 06/24/2025 (Approximate), Expires: 12/23/2025 [facility] Work Phone: Comment on above: Expected: 06/24/2025 (Approximate), Expires: 12/23/2025 Start: 06-21-2025 End: 01-19-2026 US Carotid arteries - bilateral US CAROTID BILATERAL Radiology Routine Bilateral carotid artery stenosis Expected: 06/21/2025, Expires: 01/19/2026 [facility] Comment on above: Expected: 06/21/2025 , Expires: 01/19/2026 Start: 06-07-2025 Diabetes mellitus screening Diabetes Screening [facility] Start: 03-31-2025 End: 03-31-2025 Patient encounter procedure 03/31/2025 9:00 AM EDT Office Visit Cerebrovascular [address] [place] [address] Amy Flores, GREG.POLICE CHIEF [address] [address] 4 month follow up per Dr. Ballard Cerebrovascular Comment on above: 4 month follow up pe r Dr. Ballard Start: 02-28-2025 Influenza vaccination Influenza Vacc ine (#1) [facility] Start: 01-18-2025 Evaluation of diagnostic study results [facility] Start: 12-23-2024 End: 12-23-2024 Patient encounter procedure 12/23/2024 8:40 AM EDT Office Visit [place] [address] [phone] Maria Malik MD [address] [address] [facility] Start: 12-22-2024 Medicare Annual Wellness Visit Medicare Annual Wellness Visit (AWV) [facility] Start: 12-20-2024 End: 03-21-2025 Apolipoprotein B [Mass/volume] in Serum or Plasma APOLIPOPROTEIN B BLD Lab Routine Hyperlipidemia, unspecified hyperlipidemia type Expected: 12/20/2024, Expires: 03/21/2025 [facility] Comment on above: Expected: 12/20/2024 , Expires: 03/21/2025 Start: 12-20-2024 End: 03-21-2025 ASPIRIN/CLOPIDOGREL RESISTANCE ASPIRIN/CLOPIDOGREL RESISTANCE Lab Routine Arterial ischemic stroke, MCA (middle cerebral artery), right, acute (HCC) Expected: 12/20/2024, Expires: 03/21/2025 [facility] Comment on above: Expected: 12/20/2024 , Expires: 03/21/2025 Start: 12-20-2024 End: 06-21-2025 Cholesterol in LDL [Mass/volume] in Serum or Plasma Cholesterol, LDL Direct Lab Routine Mixed hyperlipidemia Expected: 12/20/2024 (Approximate), Expires: 06/21/2025 [facility] Work Phone: Comment on above: Expected: 12/20/2024 (Approximate), Expires: 06/21/2025 Start: 12-20-2024 End: 06-21-2025 Comprehensive metabolic 2000 panel - Serum or Plasma Comprehensive Metabolic Panel Lab Routine Essential hypertension Mixed hyperlipidemia Expected: 12/20/2024 (Approximate), Expires: 06/21/2025 [facility] Service Area Work Phone: Comment on above: Expected: 12/20/2024 (Approximate), Expires: 06/21/2025 Start: 12-20-2024 End: 03-21-2025 Lipoprotein a [Mass/volume] in Serum or Plasma LIPOPROTEIN (A) Lab Routine Hyperlipidemia, unspecified hyperlipidemia type Expected: 12/20/2024, Expires: 03/21/2025 [facility] Work Phone: Comment on above: Expected: 12/20/2024 , Expires: 03/21/2025 Start: 12-20-2024 End: 12-20-2024 Patient encounter procedure 12/20/2024 8:40 AM EDT Office Visit NEUROLOGY [address] [place] [address] [place] [id number] Nellie Owens MD [address] [place] [address] Consult to Neurosurgery NEUROLOGY Comment on above: Consult to Neurosurg elvie Start: 10-21-2024 Patient discharge [facility] Start: 10-20-2024 Following clinical pathway protocol [facility] Start: 10-20-2024 Assessment of risk o f venous thromboembolism [facility] Start: 10-20-2024 Cardiac monitoring [facility] Start: 10-20-[address] [facility] Start: 10-20-[address] [facility] Start: 10-20-2024 Consultation [facility] Start: 10-20-[address] [facility] Start: 10-20-2024 Elevation of head of bed [facility] Start: 10-20-2024 Exercises [facility] Start: 10-20-[address] [facility] Start: 04-23-2025 Insertion of cathete r into peripheral vein [facility] Start: 10-20-[address] [facility] Start: 10-20-[address] [facility] Start: 10-20-2024 Patient referral to dietitian [facility] Start: 10-20-2024 Providing care according to standard [facility] Start: 10-20-2024 Provision of activit y privileges [facility] Start: 10-20-2024 Referral to occupational therapist [facility] Start: 10-20-2024 Referral to service [facility] Start: 10-20-[address] [facility] Start: 10-20-2024 Telemedicine consultation with patient [facility] Start: 10-20-2024 Tobacco use cessatio n education [facility] Start: 10-20-2024 End: 10-20-2024 [facility] Start: 10-20-[address] [facility] Start: 10-20-2024 Admission procedure [facility] Start: 10-20-2024 Hospital admission, emergency, from emergency room, medical nature [facility] Start: 10-20-2024 [facility] Start: 06-30-2024 Advance Directive Discussion Advance Directive Discussion [facility] Start: 06-30-2024 Medicare Advantage Annual Wellness Visit Medicare Advantage Annual Wellness Visit [facility] Start: 06-29-2024 End: 06-29-2024 Patient encounter procedure 06/29/2024 8:00 AM EST [facility] [address] [place] [phone] Maria Malik MD [address] [place] [address] [facility] Start: 06-22-2024 End: 12-21-2024 CBC W Auto Differential panel - Blood CBC and Auto Differential Lab Routine Other polyneuropathy B12 deficiency Expected: 06/22/2024, Expires: 12/21/2024 [facility] Work Phone: Comment on above: Expected: 06/22/2024 , Expires: 12/21/2024 Start: 06-22-2024 End: 12-21-2024 Cobalamin (Vitamin B12) [Mass/volume] in Serum or Plasma Vitamin B12 Lab Routine Other polyneuropathy B12 deficiency Expected: 06/22/2024, Expires: 12/21/2024 [facility] Work Phone: Comment on above: Expected: 06/22/2024 , Expires: 12/21/2024 Start: 06-22-2024 End: 12-21-2024 Comprehensive metabolic 2000 panel - Serum or Plasma Comprehensive Metabolic Panel Lab Routine Mild vascular dementia without behavioral disturbance, psychotic disturbance, mood disturbance, or anxiety (Multi) Arteriosclerosis of coronary artery Essential hypertension Mixed hyperlipidemia Other polyneuropathy Expected: 06/22/2024, Expires: 12/21/2024 [facility] Service Area Work Phone: Comment on above: Expected: 06/22/2024 , Expires: 12/21/2024 Start: 06-22-2024 End: 12-21-2024 Hemoglobin A1c/Hemoglobin.total in Blood Hemoglobin A1C Lab Routine Other polyneuropathy Hyperglycemia Expected: 06/22/2024, Expires: 12/21/2024 [facility] Work Phone: Comment on above: Expected: 06/22/2024 , Expires: 12/21/2024 Start: 06-22-2024 End: 12-21-2024 Lipid 1996 panel - Serum or Plasma Lipid Panel Lab Routine Arteriosclerosis of coronary artery Mixed hyperlipidemia Expected: 06/22/2024, Expires: 12/21/2024 [facility] Work Phone: Comment on above: Expected: 06/22/2024 , Expires: 12/21/2024 Start: 06-22-2024 End: 12-21-2024 Prostate specific Ag [Mass/volume] in Serum or Plasma Prostate Specific Antigen, Screen Lab Routine Screening for prostate cancer Expected: 06/22/2024, Expires: 12/21/2024 [facility] Work Phone: Comment on above: Expected: 06/22/2024 , Expires: 12/21/2024 Start: 03-09-2024 Screening for malignant neoplasm of colon [facility] Start: 02-29-2024 COVID-19 Vaccine ( season) COVID-19 Vaccine () [facility] Start: 12-22-2023 End: 12-22-2023 Patient encounter procedure 12/22/2023 8:20 AM EDT [facility] [address] [facility] [place] [phone] Maria Malik MD [address] [place] [address] [facility] Start: 12-20-2023 End: 06-20-2024 CBC W Auto Differential panel - Blood CBC and Auto Differential Lab Routine Other polyneuropathy Expected: 12/20/2023 (Approximate), Expires: 06/20/2024 [facility] Service Area Work Phone: Comment on above: Expected: 12/20/2023 (Approximate), Expires: 06/20/2024 Start: 12-20-2023 End: 06-20-2024 Cholesterol in LDL [Mass/volume] in Serum or Plasma Cholesterol, LDL Direct Lab Routine Arteriosclerosis of coronary artery Mixed hyperlipidemia Expected: 12/20/2023 (Approximate), Expires: 06/20/2024 [facility] Work Phone: Comment on above: Expected: 12/20/2023 (Approximate), Expires: 06/20/2024 Start: 12-20-2023 End: 06-20-2024 Cobalamin (Vitamin B12) [Mass/volume] in Serum or Plasma Vitamin B12 Lab Routine Other polyneuropathy Expected: 12/20/2023 (Approximate), Expires: 06/20/2024 [facility] Work Phone: Comment on above: Expected: 12/20/2023 (Approximate), Expires: 06/20/2024 Start: 12-20-2023 End: 06-20-2024 Comprehensive metabolic 2000 panel - Serum or Plasma Comprehensive Metabolic Panel Lab Routine Mild vascular dementia without behavioral disturbance, psychotic disturbance, mood disturbance, or anxiety (CMS/[facility]) Arteriosclerosis of coronary artery Essential hypertension Mixed hyperlipidemia Expected: 12/20/2023 (Approximate), Expires: 06/20/2024 [facility] Work Phone: Comment on above: Expected: 12/20/2023 (Approximate), Expires: 06/20/2024 Start: 08-30-2023 Medicare Annual Wellness Visit Medicare Annual Wellness Visit (AWV) [facility] Start: 06-20-2023 End: 03-21-2024 CBC panel - Blood by Automated count CBC Lab Routine Other polyneuropathy Expected: 06/20/2023 (Approximate), Expires: 03/21/2024 [facility] Service Area Work Phone: Comment on above: Expected: 06/20/2023 (Approximate), Expires: 03/21/2024 Start: 06-20-2023 End: 03-21-2024 Cobalamin (Vitamin B12) [Mass/volume] in Serum or Plasma Vitamin B12 Lab Routine Other polyneuropathy Expected: 06/20/2023 (Approximate), Expires: 03/21/2024 [facility] Work Phone: Comment on above: Expected: 06/20/2023 (Approximate), Expires: 03/21/2024 Start: 06-20-2023 End: 03-21-2024 Comprehensive metabolic 2000 panel - Serum or Plasma Comprehensive Metabolic Panel Lab Routine Other polyneuropathy Arteriosclerosis of coronary artery Essential hypertension Mixed hyperlipidemia Expected: 06/20/2023 (Approximate), Expires: 03/21/2024 [facility] Work Phone: Comment on above: Expected: 06/20/2023 (Approximate), Expires: 03/21/2024 Start: 06-20-2023 End: 06-20-2024 Home sleep apnea test (HSAT) Home sleep apnea test (HSAT) [facility] Routine Obstructive sleep apnea syndrome Hypersomnolence Expected: 06/20/2023 (Approximate), Expires: 06/20/2024 [facility] Work Phone: Comment on above: Expected: 06/20/2023 (Approximate), Expires: 06/20/2024 Start: 06-20-2023 End: 03-21-2024 Lipid 1996 panel - Serum or Plasma Lipid Panel Lab Routine Arteriosclerosis of coronary artery Mixed hyperlipidemia Expected: 06/20/2023 (Approximate), Expires: 03/21/2024 [facility] Work Phone: Comment on above: Expected: 06/20/2023 (Approximate), Expires: 03/21/2024 Start: 06-20-2023 End: 06-20-2023 Patient encounter procedure 06/20/2023 8:20 AM EST [facility] [address] [facility] [place] [phone] Maria Malik MD [address] [place] [phone] [facility] Start: 03-21-2023 End: 03-21-2023 Patient encounter procedure 03/21/2023 8:40 AM EDT [facility] [address] [place] [phone] Maria Malik MD [address] [place] [phone] [facility] Start: 03-18-2023 Application of device [facility] Start: 03-18-2023 Application of ice collar, cap or bag [facility] Start: 03-18-2023 Assessment of risk o f venous thromboembolism [facility] Start: 03-18-[address] [facility] Start: 03-18-2023 Deep breathing and coughing exercises [facility] Start: 03-18-2023 Following clinical pathway protocol [facility] Start: 03-18-2023 Incentive spirometry [facility] Start: 03-18-2023 Introduction of urinary catheter [facility] Start: 03-18-[address] [facility] Start: 03-18-2023 Patient discharge [facility] Start: 03-18-2023 Patient education [facility] Start: 03-18-[address] vital signs [facility] Start: 03-18-[address] [facility] Start: 03-18-2023 [facility] Start: 03-18-2023 Plain X-ray of shoulder Shoulder min [address] [facility] Start: 03-18-2023 XR Shoulder GE [address] [facility] Start: 03-18-2023 Medication education [facility] Start: 03-17-2023 Nasal Screen MRSA/MSSA Nasal Screen MRSA/MSSA [facility] Start: 03-17-2023 [facility] Start: 02-28-2023 COVID-19 Vaccine () COVID-19 Vaccine () [facility] Start: 02-28-2023 Influenza vaccination Influenza Vacc ine (#1) [facility] Start: 11-29-2022 End: 11-30-2023 Cholesterol in LDL [Mass/volume] in Serum or Plasma Cholesterol, LDL Direct Lab Routine Mixed hyperlipidemia Expected: 11/29/2022 (Approximate), Expires: 11/30/2023 [facility] Work Phone: Comment on above: Expected: 11/29/2022 (Approximate), Expires: 11/30/2023 Start: 11-29-2022 End: 11-30-2023 Comprehensive metabolic 2000 panel - Serum or Plasma Comprehensive Metabolic Panel Lab Routine Essential hypertension Mixed hyperlipidemia Expected: 11/29/2022 (Approximate), Expires: 11/30/2023 [facility] Service Area Work Phone: Comment on above: Expected: 11/29/2022 (Approximate), Expires: 11/30/2023 Start: 11-19-2022 DTaP/Tdap/Td Vaccine s (2 - Td or Tdap) DTaP/Tdap/Td Vaccines (2 - Td or Tdap) [facility] Start: 11-19-2022 Tetanus vaccination Tetanus: Every 1 0yrs [facility] Start: 11-19-2022 Urine microalbumin profile DTaP,Tdap,Td Vaccine (2 - Td or Tdap) [facility] Start: 09-25-2022 End: 09-25-2022 Patient encounter procedure 09/25/2022 Office Visit Cardiology Felecia Hamilton MD [address] [place] [address] [facility] Start: 08-28-2022 EPV, Provider: Maria Malik, Status: Pen, Time: 8:40 AM EPV, Provider: Maria Malik, Status: Pen, Time: 8:40 AM [facility] Work Phone: Start: 2022 RSV High Risk: (Elderly (60+) or Population) (1 - 1-dose 75+ series) RSV High Risk: (Elderly (60+) or Population) (1 - 1-dose 75+ series) [facility] Start: 2022 RSV Vaccine (1 - 1-dose 75+ series) RSV Vaccine (1 - 1-dose 75+ series) [facility] Start: 03-29-2022 End: 03-29-2022 Patient encounter procedure 03/29/2022 Office Visit Cardiology Felecia Hamilton MD [address] [place] [address] [facility] Start: 03-07-2022 Diabetes mellitus screening Diabetes Screening [facility] Start: 02-28-2022 Influenza vaccination Sequenti al Influenza Vaccine (#1) [facility] Start: 12-26-2021 End: 11-25-2022 Carotid artery doppler assessment Carotid Duplex Vascular Ultrasound Routine Bilateral carotid artery stenosis Expected: 12/26/2021, Expires: 11/25/2022 [facility] Comment on above: Expected: 12/26/2021 , Expires: 11/25/2022 Start: 10-30-2021 COVID-19 Vaccine (4 - Booster for Moderna series) COVID-19 Vaccine (4 - Booster for Moderna series) [facility] Start: 08-27-2021 COVID-19 Vaccine (4 - Booster for Moderna series) COVID-19 Vaccine (4 - Booster for Moderna series) [facility] Start: 08-27-2021 COVID-19 Vaccine (4 - Moderna series) COVID-19 Vaccine (4 - Moderna series) [facility] Start: 08-27-2021 EPV, Provider: Maria Malik, Status: Pen, Time: 9:20 AM EPV, Provider: Maria Malik, Status: Pen, Time: 9:20 AM [facility] Work Phone: Start: 08-27-2021 Patient encounter procedure [facility] Start: 06-14-2021 Patient encounter procedure [facility] Start: 06-14-2021 POV, Provider: Kathy Duffy, Status: Pen, Time: 11:00 AM POV, Provider: Kathy Duffy, Status: Pen, Time: 11:00 AM [facility] Work Phone: Start: 06-05-2021 End: 06-05-2022 Atorvastatin 40 mg Oral Tablet Daily ; Tablet (LIPITOR)DOSE = 40 mg Oral Daily Start: 05-Jun-2021 End: 04-Jun-2022 Ordered: 04-Jun-2021 Sharon Valderrama Intent [facility] Start: 06-04-2021 End: 06-05-2022 [facility] Start: 06-04-2021 End: 06-07-2021 Iohexol (Omnipaque 350-Radiology Contrast) . ; (OMNIPAQUE)DOSE = 136.5 mL IntraVenous Push OnceCa.5 mL/Kg/DOSE x 91 Kg = 136.5 mL/Dose (Daily Total is 136.5 mL)LABS: Blood Urea Nitrogen, Serum,47,04-Jun-2021 11:50:33 Creatinine, Serum,6.48,04-Jun-2021 11:50:33 GFR-Non ,8 11:50:33 GFR-,10,04-Jun-2021 11:50:33 Start: 04-Jun-2021 End: 06-Jun-2021 Ordered: 04-Jun-2021 Isaiah Cancino Intent [facility] Start: 06-04-2021 End: 06-05-2022 [facility] Start: 05-29-2021 EPV, Provider: Maria Malik, Status: Pen, Time: 9:00 AM EPV, Provider: Maria Malik, Status: Pen, Time: 9:00 AM [email or web address] Work Phone: Start: 05-29-2021 Patient encounter procedure [facility] Start: 04-10-2021 NPV, Provider: Kathy Duffy, Status: Pen, Time: 11:30 AM NPV, Provider: Kathy Duffy, Status: Pen, Time: 11:30 AM [email or web address] Work Phone: Start: 04-10-2021 Patient encounter procedure [facility] [place] Start: 04-02-2021 EPV, Provider: Maria Malik, Status: Pen, Time: 11:00 AM EPV, Provider: Maria Malik, Status: Pen, Time: 11:00 AM [email or web address] Work Phone: Start: 04-02-2021 Patient encounter procedure [facility] Start: 03-20-2021 Functional Risk Scre en Request for MANAGER ZONE Eval/Tx [facility] Functional Risk Screen Request for MANAGER ZONE Eval/Tx [facility] Start: :03 Request Comments: Order entered from Admission Screens. [facility] Comment on above: Order entered from A dmission Screens. Start: 03-20-2021 End: 03-21-2022 [facility] Start: 03-19-2021 End: 03-20-2022 [facility] Start: 03-14-2021 End: 03-14-2021 Follow-up encounter 03/14/2021 Follow-Up Sports Tami Najera, KATHLEEN [address] [facility] [address] [place] [address] [facility] Start: 03-07-2021 End: 03-07-2021 Follow-up encounter 03/07/2021 Follow-Up Sports Ej Simons MD [address] [facility] [address] [place] [address] [phone] [facility] Start: 02-28-2021 Influenza vaccination [facility] Start: 02-27-2021 Subsequent hospital visit by physician 02/27/2021 Hospital Encounter Ej Braden MD [address] [facility] 2 [place], [place] [id number] [facility] Start: 01-15-2021 End: 01-15-2021 Patient encounter procedure 01/15/2021 Procedure visit Neurology Leobardo Malcolm MD [address] [facility] [address] [address] [phone] [facility] Start: 08-28-2020 End: 08-28-2020 Office Visit 08/28/2020 Office Visit Cardiology oTny Fitzpatrick MD [address] [facility] [address] [place] [address] [facility] Start: 02-29-2020 Influenza vaccinatio n given [facility] Start: 12-28-2019 End: 09-27-2020 Carotid artery doppler assessment Ultrasound doppler carotid Vascular Ultrasound Routine Bilateral carotid artery stenosis Expected: 12/28/2019, Expires: 09/27/2020 [facility] Comment on above: Expected: 12/28/2019 , Expires: 09/27/2020 Start: 12-21-2019 End: 12-21-2019 Appointment [facility] Start: 10-21-2019 Comprehensive metabolic 2000 panel Comprehensive Metabolic Panel [email or web address] Work Phone: Start: 10-21-2019 Lipid panel Lipid Panel [email or web address] Work Phone: Start: 10-21-2019 PSA screening Prostate Spec. Ag, Screen [email or web address] Work Phone: Start: 02-28-2019 Influenza vaccinatio n given Sequential Influenza Vaccine (#1) [facility] Start: 02-28-2018 Influenza vaccinatio n given SEQUENTIAL INFLUENZA VACCINE (#1) [facility] Start: 2012 Fall risk assessment [facility] Start: 2012 Pneumococcal vaccination Pneumococcal Vaccine Age 65+ (1 of 2 - PCV13) [facility] Start: 2012 Pneumococcal Vaccine : Age 65+ (1 of 1 - PPSV23) Pneumococcal Vaccine: Age 65+ (1 of 1 - PPSV23) [facility] Start: 07-25-2011 Administration of herpes zoster vaccine Zoster Vaccines (2 of 3) [facility] Start: 07-25-2011 Shingrix Vaccine (2 of 3) Shingrix Vaccine (2 of 3) [facility] Start: 07-25-2011 Zoster Vaccines (2 o f 3) Zoster Vaccines (2 of 3) [facility] Start: 2007 RSV patient s and/or patients aged 60+ years (1 - 1-dose 60+ series) RSV patients and/or patients aged 60+ years (1 - 1-dose 60+ series) [facility] Start: 1997 Administration of herpes zoster vaccine Zoster Vaccines (1 of 2) [facility] Start: 1997 Screening for malignant neoplasm of colon [facility] Start: 1965 Anxiety Screening Anxiety Screening [facility] Start: 1965 Depression Screening Depression Scre ening [facility] Start: 1965 Diabetes mellitus screening Diabetes Screening [facility] Start: 1965 Hepatitis C antibody , confirmatory test Hepatitis C Screening [facility] Start: 1965 Hepatitis C screening Hepatitis C Sc reening [facility] Start: 1963 COVID-19 Vaccine (1 of 2) COVID-19 Vaccine (1 of 2) [facility] Start: 1959 Adolescent depressio n screening assessment Depression Screening (PHQ9) [facility] Start: 1959 COVID-19 Vaccine (1) COVID-19 Vaccin e (1) [facility] Start: 1959 Depression screening using PHQ-9 (Patient Health Questionnaire 9) score [facility] Start: 1953 Pneumococcal Vaccine : Age 65+ (1 of 2 - PPSV23) Pneumococcal Vaccine: Age 65+ (1 of 2 - PPSV23) [facility] Start: 1950 History and physical examination, annual for health maintenance Wellness Visit [facility] Start: 1947 Fall risk assessment Falls Risk Asse ssment [facility] Start: 1947 Hepatitis C antibody , confirmatory test Hepatitis C Screening [facility] Start: 1947 Medicare Annual Wellness Visit Medicare Annual Wellness Visit (AWV) [facility] Start: 1947 Prostate specific antigen measurement PSA Level [facility] Start: 1947 Screening for malignant neoplasm of colon [facility] Start: 1947 Tetanus vaccination [facility] ASPIRIN/CLOPIDOGREL RESISTANCE ASPIRIN/CLOPIDOGREL RESISTANCE Lab Routine Koadaj-ar-ljdqdawno syndrome (HCC) 12/03/2024 10:27 AM EDT [facility] Work Phone: Basic metabolic 2008 panel with ionized calcium - Serum or Plasma [facility] End: 11-25-2022 Extended Holter Monitor (3-7 days) Extended Holter Monitor (3-7 days) Cardiac Services Routine Coronary artery disease involving [place] coronary artery of [place] heart without angina pectoris 1 Occurrences starting 09/25/2021 until 11/25/2022 [facility] Comment on above: 1 Occurrences starti ng 09/25/2021 until 11/25/2022 History of cholecystectomy S/P laparoscopic cholecystectomy Comments: subtotal cholecystectomy [facility] Comment on above: subtotal cholecystec maxine History of coronary artery bypass grafting History of coronary artery bypass graft x 3 [facility] History of decompression of median nerve History of carpal tunnel release Comments: in 2010 [facility] Comment on above: in 2010 History of operative procedure on foot History of foot surgery [facility] Patient referral [facility] Work Phone: End: 09-25-2022 Radionuclide myocardial perfusion study NM Myocardial Perfusion Multiple SPECT Imaging Routine Coronary artery disease involving [place] coronary artery of [place] heart without angina pectoris 1 Occurrences starting 09/25/2021 until 09/25/2022 [facility] Work Phone: Comment on above: 1 Occurrences starti ng 09/25/2021 until 09/25/2022 Replacement of electronic heart device, pulse generator [facility] US Carotid arteries [facility] NEGATED: Highlighted row has been ruled out! Planned Goals not documented [facility] Work Phone: Immunizations Immunization Date Immunization Notes Care Provider [facility] 04-08-2024 influenza, seasonal, injectable Maria Malik MD Work Phone: [facility] 04-08-2024 influenza virus vaccine, unspecified formulation Taj Ballard MD Work Phone: [facility] 04-07-2023 influenza, injectabl e, quadrivalent, preservative free Dr. Lowell Malik MD Work Phone: [facility] 04-07-2023 Influenza, Seasonal, Quadrivalent, Adjuvanted Maria Malik MD Work Phone: [facility] Work Phone: 04-10-2022 Fluad Quadrivalent 0 .5 ML Intramuscular Prefilled Syringe Maria Malik Work Phone: [facility] Work Phone: Comment on above: Series: 04-10-2022 influenza, injectabl e, quadrivalent, contains preservative Maria Malik MD Work Phone: [facility] Work Phone: 04-10-2022 influenza, injectabl e, quadrivalent, preservative free Dr. Lowell Malik MD Work Phone: [facility] 04-10-2022 influenza virus vaccine, unspecified formulation Maria Malik MD Work Phone: [facility] Work Phone: 07-02-2021 Moderna COVID-19 Vaccine 100 MCG/0.5ML Intramuscular Suspension Maria Malik Work Phone: [facility] 04-10-2021 influenza, injectabl e, quadrivalent, preservative free Maria Malik Work Phone: [facility] 04-10-2021 influenza, seasonal, injectable Maria Malik Work Phone: [facility] Work Phone: Comment on above: Series: 11-22-2020 pneumococcal polysaccharide vaccine, 23 valent Maria Malik Work Phone: [facility] Work Phone: Comment on above: Series: 11-21-2020 pneumococcal polysaccharide vaccine, 23 valent Maria Malik Work Phone[facility] Work Phone: 09-08-2020 Moderna COVID-19 Vaccine 100 MCG/0.5ML Intramuscular Suspension Maria Malik Work Phone: [facility] 08-10-2020 Moderna COVID-19 Vaccine 100 MCG/0.5ML Intramuscular Suspension Maria Malik Work Phone: [facility] 04-05-2020 influenza, injectabl e, quadrivalent, preservative free Dr. Lowell Malik MD Work Phone: [facility] 04-05-2020 influenza, seasonal, injectable Maria Malik Work Phone: [facility] Work Phone: Comment on above: Series: 04-05-2019 influenza virus vaccine, unspecified formulation Maria Malik Work Phone: [facility] Work Phone: Comment on above: Series: 04-05-2019 influenza, seasonal, injectable Maria Malik [facility] Work Phone: 04-07-2017 influenza, high dose seasonal, preservative-free Maria Malik Work Phone: [facility] Work Phone: 04-11-2016 influenza virus vaccine, whole virus Maria Malik MD Work Phone: [facility] Work Phone: 07-14-2015 pneumococcal polysaccharide vaccine, 23 valent Maria Malik [facility] Work Phone: Comment on above: Series: 07-14-2015 pneumococcal polysaccharide vaccine, 23 valent Maria Malik [facility] Work Phone: 07-27-2014 pneumococcal conjuga te vaccine, 13 valent Maria Malik [facility] Work Phone: Comment on above: Series: 04-14-2013 influenza virus vaccine, whole virus Maria Malik Work Phone: [facility] Work Phone: 04-14-2013 influenza, injectabl e, quadrivalent, preservative free Dr. Lowell Malik MD Work Phone: [facility] 11-19-2012 tetanus toxoid, redu krupa diphtheria toxoid, and acellular pertussis vaccine, adsorbed Maria Malik [facility] Work Phone: Comment on above: Series: 05-11-2012 pneumococcal polysaccharide vaccine, 23 valent Maria Malik [facility] Work Phone: Comment on above: Series: 05-30-2011 zoster vaccine, live Maria morris [facility] Work Phone: Comment on above: Series: 04-18-2009 influenza virus vaccine, whole virus Maria Malik Work Phone: [facility] Work Phone: 04-18-2009 influenza, injectabl e, quadrivalent, preservative free Dr. Lowell Malik MD Work Phone: [facility] 05-05-2008 influenza virus vaccine, whole virus Maria Malik Work Phone: [facility] Work Phone: 05-05-2008 influenza, injectabl e, quadrivalent, preservative free Dr. Lowell Malik MD Work Phone: [facility] 05-26-2007 influenza virus vaccine, whole virus Maria Malik Work Phone: [facility] Work Phone: 05-26-2007 influenza, injectabl e, quadrivalent, preservative free Dr. Lowell Malik MD Work Phone: [facility] pneumococcal polysaccharide vaccine, 23 valent Maria Malik Work Phone: [facility] Work Phone: Comment on above: Series: Payers Date Payer Category Payer Self-pay [id number] 2018 Unknown 2013 Medicare [facility] [facility] [employer] [facility] ADVANTAGE CHOICE PPO xxxxxxxxx 2013-Present xxxxxxxxx [id number] 2013 Medicare [id number] .[id number] 2013 Medicare [id number] 1.13.385.2 .[id number] 2012 Medicare (Managed Care) 1.2. [id number] .[id number] 2012 Medicare [id number] 1947 Unknown [id number] 2.16.840.1.786525.3.579.2 .903 1947 Unknown [id number] 2.16.840.1.868877.3.579.2 .903 1947 Unknown [id number] 2.16.840.1.436345.3.579.2 .903 1947 Unknown [id number] 2.16.840.1.320818.3.579.2 .903 1947 Unknown [id number] 2.16.840.1.358189.3.579.2 .1947 Unknown [id number] 2.16.840.1.585887.3.579.2 .1947 Unknown [id number] 2.16.840.1.723885.3.579.2 .1947 Unknown [id number] 2.16.840.1.015477.3.579.2 .1947 Unknown [id number] 2.16.840.1.800108.3.579.2 .1947 Unknown [id number] 2.16.840.1.234575.3.579.2 .1947 Unknown [id number] 2.16840.1.874279.3.579.2 .1947 Unknown [id number] 2.16.840.1.288797.3.579.2 .1947 Unknown [id number] 2.16.840.1.898294.3.579.2 .1947 Unknown [id number] 2.16.840.1.539464.3.579.2 .356 1947 Unknown [id number] 2.16840.1.518992.3.579.2 .356 1947 Unknown [id number] 2.16.840.1.707805.3.579.2 .1243 1947 Unknown [id number] 2.16.840.1.262047.3.579.2 .1245 1947 Unknown [id number] 2.16.840.1.130258.3.579.2 .1245 1947 Unknown [id number] 2.16.840.1.436400.3.579.2 .1244 1947 Unknown [id number] 2.16.840.1.158076.3.579.2 .1244 1947 Unknown [id number] 2.16.840.1.660416.3.579.2 .902 Unknown [id number] 2.16.840.1.516937.3.579.2 .462 Unknown [id number] 2.16.840.1.077973.3.579.2 .462 Unknown [id number] 2.16.840.1.107465.3.579.2 .462 Unknown [id number] 2.16.840.1.078737.3.579.2 .462 Unknown [id number] 2.16.840.1.056356.3.579.2 .462 Unknown [id number] 2.16.840.1.706712.3.579.2 .462 Unknown [id number] 2.16.840.1.699000.3.579.2 .462 Unknown [id number] 2.16.840.1.590100.3.579.2 .462 Unknown [id number] 2.16.840.1.312319.3.579.2 .462 Unknown [id number] 2.16.840.1.346153.3.579.2 .462 Unknown [id number] 2.16.840.1.393862.3.579.2 .462 Unknown [id number] 2.16.840.1.261000.3.579.2 .462 Unknown [id number] 2.16.840.1.457154.3.579.2 .462 Unknown [id number] 2.16.840.1.177147.3.579.2 .462 Unknown [id number] 2.16.840.1.222567.3.579.2 .462 Social History Date Type Detail Facility Start: 09-27-2019 End: 10-29-2024 Tobacco smoking status [facility] Never smoker [facility] Start: 09-27-2019 End: 12-20-2024 Alcohol intake Current non-drinker of alcohol (finding) [facility] Start: 1945 Sex Assigned At Not on file [facility] Start: 02-15-2020 End: 12-03-2024 Tobacco use and exposure [facility] Start: 09-15-2021 End: 06-21-2024 Exposure to SARS-CoV-2 (event) Not sure [facility] Start: 08-02-2015 End: 12-03-2024 Patient has living will Patient has living will [facility] Work Phone: Start: 11-27-2022 End: 06-10-2023 Tobacco smoking consumption unknown [facility] Start: 11-29-2022 End: 12-23-2024 Alcohol intake Current drinker of alcohol (finding) [facility] Work Phone: Start: 11-29-2022 End: 12-03-2024 Tobacco use panel [facility] Work Phone: Start: 11-29-2022 Alcohol Comment rarely [facility] Work Phone: Start: 1945 Sex Ass[address] At Male [facility] Start: 10-21-2024 Tobacco Use Tobacco Use [facility] National Score (1-100), lower number is lower risk 60 [facility] NEGATED: Highlighted row - - [facility] Work Phone: NEGATED: Highlighted rowStart: NINF History of tobacco use Passive smoker [facility] Work Phone: Medical Equipment Procedure Code Equipment Code Equipment Origin al Text Equipment Identifier Dates Endo, Clip, 5mm, M/L Case [id number] Start: 05-30-2021 Comment on above: Description: Convert ed from [facility] Acute. Please see archived information for full log information. GLENOID FULL-WED GE AUGMENT BASEPLATE FDA Start: 03-18-2023 screw FDA Start: 03-18-2023 Reverse shoulder prosthesis head [id number] FDA Start: 03-18-2023 PTC PROXIMAL BODY FDA Start: 03-18-2023 TORNIER PERFORM REV PERIPHEAL SCREW FDA Start: 03-18-2023 aequalis fex revive FDA Start: 03-18-2023 assembly screw FDA Start: 03-18-2023 flex reversed insert, thickness +6mm FDA Start: 03-18-2023 flex reversed tray FDA Start: 03-18-2023 glenoid press-fi t short post FDA Start: 03-18-2023 locking cap FDA Start: 03-18-2023 GLENOID FULL-WED GE AUGMENT BASEPLATE FDA Start: 03-18-2023 screw FDA Start: 03-18-2023 PTC PROXIMAL BODY FDA Start: 03-18-2023 TORNIER PERFORM REV PERIPHEAL SCREW FDA Start: 03-18-2023 aequalis fex revive FDA Start: 03-18-2023 assembly screw FDA Start: 03-18-2023 flex reversed insert, thickness +6mm FDA Start: 03-18-2023 flex reversed tray FDA Start: 03-18-2023 glenoid press-fi t short post FDA Start: 03-18-2023 locking cap FDA Start: 03-18-2023 GLENOID FULL-WED GE AUGMENT BASEPLATE FDA Start: 03-18-2023 screw FDA Start: 03-18-2023 PTC PROXIMAL BODY FDA Start: 03-18-2023 TORNIER PERFORM REV PERIPHEAL SCREW FDA Start: 03-18-2023 aequalis fex revive FDA Start: 03-18-2023 assembly screw FDA Start: 03-18-2023 flex reversed insert, thickness +6mm FDA Start: 03-18-2023 flex reversed tray FDA Start: 03-18-2023 glenoid press-fi t short post FDA Start: 03-18-2023 locking cap FDA Start: 03-18-2023 GLENOID FULL-WED GE AUGMENT BASEPLATE FDA Start: 03-18-2023 screw FDA Start: 03-18-2023 PTC PROXIMAL BODY FDA Start: 03-18-2023 TORNIER PERFORM REV PERIPHEAL SCREW FDA Start: 03-18-2023 aequalis fex revive FDA Start: 03-18-2023 assembly screw FDA Start: 03-18-2023 flex reversed insert, thickness +6mm FDA Start: 03-18-2023 flex reversed tray FDA Start: 03-18-2023 glenoid press-fi t short post FDA Start: 03-18-2023 locking cap FDA Start: 03-18-2023 GLENOID FULL-WED GE AUGMENT BASEPLATE FDA Start: 03-18-2023 screw FDA Start: 03-18-2023 PTC PROXIMAL BODY FDA Start: 03-18-2023 TORNIER PERFORM REV PERIPHEAL SCREW FDA Start: 03-18-2023 aequalis fex revive FDA Start: 03-18-2023 assembly screw FDA Start: 03-18-2023 flex reversed insert, thickness +6mm FDA Start: 03-18-2023 flex reversed tray FDA Start: 03-18-2023 glenoid press-fi t short post FDA Start: 03-18-2023 locking cap FDA Start: 03-18-2023 Goals Date Patient Goal Desired Activity /State Functional Status Date Assessment Result Facility 12-23-2024 Patient Health Questionnaire 2 item (PHQ-2) [Reported] [facility] Work Phone: 10-21-2024 Functional status Chair [facility] Work Phone: 05-16-2014 Are you deaf, or do you have serious difficulty hearing No 05/16/2014 9:51 AM Divina Lozano LPN No [facility] 05-16-2014 Are you blind, or do you have serious difficulty seeing, even when wearing glasses No 05/16/2014 9:51 AM Divina Lozano LPN No [facility] 05-16-2014 Do you have serious difficulty walking or climbing stairs No 05/16/2014 9:51 AM Divina Lozano LPN No [facility] 05-16-2014 Do you have difficul ty dressing or bathing No 05/16/2014 9:51 AM Divina Lozano LPN No [facility] 05-16-2014 Because of a physica l, mental, or emotional condition, do you have difficulty doing errands alone such as visiting a physician's office or shopping No 05/16/2014 9:51 AM Divina Lozano LPN No [facility] Functional observable [facility] NEGATED: Highlighted row Functional performance Functional status health issues are not documented Disease [facility] Work Phone: Mental Status Date Assessment Result Facility 10-21-2024 Cognitive function Voice/Name [facility] Work Phone: 03-18-2023 Cognitive function Voice/Name [facility] Work Phone: 06-05-2021 Cognitive functi ons [id number] [facility] 03-22-2021 Cognitive functi ons :28 [facility] 05-16-2014 Because of a physical, mental, or emotional condition, do you have serious difficulty concentrating, remembering, or making decisions No 05/16/2014 9:51 AM Divina Lozano LPN No [facility] NEGATED: Highlighted row Cognitive function [Interpretation] Cognitive status health issues are not documented Disease [facility] Work Phone: Clinical Notes 01-20-2021 to 01-18-2025 Taj Ballard MD - 01/18/2025 7:46 AM EDT Note Date & Type Note Facility 01-18-2025 Progress note [facility] 01-18-2025 Note HNO ID: [id number] Author: TAJ BALLARD MD Service: ? 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 Taj Ballard MD [facility] 01-18-2025 History of Present illness Narrative Neuro-staff note: 14 days event monitor is negative for Afib I called the patient and advised to follow up the results of the 14 days event monitor with his PCC Taj Ballard MD documented in this encounter [facility] 01-18-2025 Progress note Note Date/Time January 18, 2025 9:24am [facility] [address] [place] [address] OFFICE VISIT Date of Service: 01/18/25 MR#: [id number] Acct: [id number] Name: ASHLEY WEINSTEIN Rep #: [id number] : 1945 Provider: Dr. Padmini Garcia MD Age/Sex: 79/M Location: [facility] Status: Signed HPI HPI History of Present Illness Details: Pleasant 79-year-old man who presents to the office today for cardiovascular hospital follow-up visit. He has a history of coronary artery disease status post coronary bypass graft surgery in 2009 with a DEGROOT to the LAD saphenous veingraft to diagonal branch and saphenous vein graft to the right coronary artery. He also has a history of hypertension, hyperlipidemia, mild renal insufficiency and a left carotid endarterectomy. He had a stress test in 2021 which demonstrated a previous inferior infarct and mild inferolateral and apical ischemia his ejection fraction was preserved medical therapy was recommended. Patient presented to the emergency room on 10/20/2024 with a stroke alert. He had presented with left leg weakness. His CTA of the head and neck showed no LVO/AVM/or aneurysm. There was 30% stenosis of the right carotid artery, 50% stenosis of the left carotid artery with probable tiny right carotid web with focal outpouching. He was admitted for further CVA workup. His brain MRI was consistent with acute to subacute infarcts. He was discharged home with a operations associate, which he brought in to have placed. It does not appear that the operations associate was conclusive and they tell me that he saw neurology and they are advocating an implantable loop recorder. He has been doing well otherwise. From a cardiac standpoint, the patient is doing well. He denies any palpitations, chest pain, pressure or heaviness. He denies SOB, Orthopnea, and PND. He does wear a CPAP nightly. He does not have bleeding issues; no blood in urine, stool, or nosebleeds. He denies myalgias, or claudication. He does not have edema, or sudden weight gain. He denies lightheadedness, dizziness, syncopal or near syncopal episodes, and headaches. He states that he does have blurred vision at times. Intake Vital Signs 11/20/23 08:32 10/29/24 10:38 01/18/25 09:01 Height 5 ft 6 in 5 ft 4 in 5 ft 4 in Weight: 205 lb BMI 35.2 BP 131/68 H Blood Pressure Location Lt brachial Position Sitting Respiration 16 Pulse 44 L Pulse Source Monitor Intake Visit Reasons: 1 Y FU Conductor Pullman Required: No Accompanied by: Significant Other Is patient in pain?: No Allergies Penicillins (PCN) Allergy (Verified 01/18/25 09:03) Other Medications ?Medication ?Instructions ?Recorded ?Confirmed ?Type amlodipine 10 mg tablet 10 mg PO DAILY 07/04/2112/29 History duloxetine 30 mg capsule,delayed 30 mg PO BID 07/04/21 01/18/25 History release metoprolol tartrate 25 mg tablet 25 mg PO BID 07/04/21 01/18/25 History acetaminophen 500 mg capsule 500 mg PO Q6H PRN Pain 01/18/25 History docusate sodium 100 mg capsule 100 mg PO BID PRN Const ipation 10/11/22 01/18/25 History melatonin 5 mg tablet 15 mg PO QHS PRN Insomnia 01/18/25 History omeprazole 40 mg capsule,delayed 40 mg PO DAILY PRN GE RD 10/11/22 01/18/25 History release gabapentin 300 mg capsule 300 mg PO QHS 10/20/2401/18 History memantine 10 mg tablet 10 mg PO BID 10/29/24 History atorvastatin 80 mg tablet (Lipitor) 80 mg PO QHS #30 t abs 11/24/24 01/18/25 Rx aspirin 325 mg tablet 325 mg PO DAILY Reduce risk of 01/18/25 01/18/25 History stroke Have you fallen in the past year?: Yes [facility] Medical History CVA (cerebral vascular accident) Left leg weakness Postoperative urinary retention Wears glasses Dietary restriction Non-smoker History of edema History of echocardiogram Closed fracture of left proximal humerus Abnormal stress test Mild cognitive impairment Depression Renal insufficiency Peripheral neuropathy CATIE (obstructive sleep apnea) Insomnia Hyperlipidemia GERD (gastroesophageal reflux disease) Chronic idiopathic constipation Atherosclerosis of coronary artery of [place] heart without angina pectoris BPH (benign prostatic hyperplasia) CPAP (continuous positive airway pressure) dependence History of stress test Hypertension History of heart attack Cardiology follow-up encounter Surgical History S/p reverse total shoulder arthroplasty History of left shoulder replacement (~03/11/23) History of transurethral resection of prostate History of colonoscopy History of coronary artery bypass graft x 3 (~08/02/09) History of carpal tunnel surgery Failed CABG (coronary artery bypass graft) History of cardiac catheterization History of bunionectomy Hx laparoscopic cholecystectomy (~05/30/21) History of carotid endarterectomy History of open heart surgery Family History Mother Diabetes Father Heart disease Social History Smoking Status: Never smoker alcohol intake: never substance use type: does not use ROS Const Const: Negative for fatigue, weakness, headache(s), daytime sleepiness or difficulty sleeping ENT ENT: Negative for headache(s), dizziness or Nosebleed/epistaxis Cardio Chest Pain: No Palpitations: No Edema: None Resp Respiratory: Negative for SOB with activity, SOB at rest, SOB orthopnea\SOB lying down or Cough GI GI: Negative nausea, vomiting or heartburn Neuro Neuro: Negative for dizziness, lightheadedness, near syncope, headache(s) or weakness Endo Endo: Negative for fatigue Cardiology Exam Const Appearance: cooperative, healthy appearing, comfortable and no acute distress Nutritional Appearance: well nourished and obese Orientation: alert, awake and oriented x3 Head Head: normal to inspection Ears: hearing grossly normal bilaterally Nose: external nose normal Face and Sinus: face symmetric Eyes General: appearance normal, both eyes and all related structures Eyelids: eyelids normal EOM: EOM intact bilaterally Neck Neck: normal visual inspection and no JVD Carotids: normal carotid upstroke Chest Chest inspection: normal inspection of the chest, symmetric chest movement and normal respiratory effort; Negative cough Auscultation: Bilateral: Clear to Auscultation Cardio Rate: regular rate Rhythm: regular rhythm Heart sounds: S1 normal and S2 normal; Negative rub, gallop or murmur GI GI: normal to inspection and obese Neuro General: patient alert, patient awake, patient oriented x3 and CN's II-XI intactbilaterally Skin Skin: no rashes or lesions noted Extremities Pulses: Normal: Right Posterior Tibial Pulse, Left Posterior Tibial Pulse, RightRadial Pulse and Left Radial Pulse Lower Extremity Edema: None: Bilateral Psych Psychological: normal affect Supplemental Info Supplemental Information Echocardiogram 10/20/2024: Interpretation Summary Normal LV size. Left ventricular systolic function is normal. The left ventricular ejection fraction is 55 %. Bubble contrast study negative for right to left interatrial shunt. ECHOCARDIOGRAM 12/09/22: Interpretation Summary Normal LV size. Left ventricular systolic function is normal. The estimated ejection fraction is 60 %. Stage 1 diastolic dysfunction. Pulmonary artery systolic pressure is 42 mmHg. Contrast injection was performed. Stress test from 12/09/2022: Conclusion: Abnormal exercise myocardial perfusion stress test at a low workload with inferior ischemia present Preserved ejection fraction. Heart catheterization from 12/17/2022: CONCLUSIONS Severe coronary artery disease with patent DEGROOT to the LAD severely diseased circumflex artery totally occluded right coronary artery. Saphenous vein graft to the right coronary artery is also noted to be effectively totally occluded. With preserved ejection fraction. CORONARY ANGIOGRAPHY DOMINANCE: Right Dominant LEFT HEART ASSESSMENT Left Ventricular Ejection Fraction: by Echo 60 % Normal LV wall motion Normal Left Ventricular systolic function LEFT MAIN: Mild calcification, No significant disease noted LEFT ANTERIOR DESCENDING ARTERY: Severely diseased vessel with proximal subtotalocclusion and then mid total occlusion CIRCUMFLEX ARTERY: Severely diseased vessel with normal proximal segment giving off a first small bifurcating obtuse marginal branch and then a subtotal occlusion and then a second bifurcating obtuse marginal branch noted. Distal faint filling is noted with some [id number] collaterals. RIGHT CORONARY ARTERY: PROX RCA: is occluded GRAFTS: DEGROOT graft to the Mid LAD is patent Saphenous Vein graft to the 1st Diagonal is totally occluded Saphenous Vein graft to the RCA The proximal bed is patent and then it is subtotally occluded reconstitutes and then is completely occluded. COLLATERAL FLOW: Collateral flow from Left to Right Carotid duplex ultrasound from 12/02/2022: Interpretation Summary Moderate (50-69%) stenosis right extracranial internal carotid. Mild (<50%) stenosis left extracranial internal carotid. Patent and antegrade vertebrals bilaterally. HOLTER REPORT 09/25/21-09/28/21: CONCLUSION Sinus rhythm with 7% PACs No atrial fibrillation No high degree AV block No significant bradycardia episodes Labs: HDL Cholesterol 31 mg/dL (40-) L Cholesterol 118 mg/dL (<=200) Triglycerides 277 mg/dL (-199) H Diagnostics: Electrocardiogram Echocardiogram Chest X-Ray Carotid Duplex Pulmonary: No Data to Display Past Visits: Cardiology Visit 01/18/25 Assessment and Plan Assessment and Plan (1) Atherosclerosis of coronary artery of [place] heart without angina pectoris: Status: Chronic Qualifiers: Coronary Disease-Associated Artery/Lesion type: [place] artery QualifiedCode(s): I25.10 - Atherosclerotic heart disease of [place] coronary artery without angina pectoris Plan: Patient has a history of coronary artery disease with CABG in 2009. His most recent cardiac catheterization from November 2022 demonstrated patent DEGROOT to mid LAD, occluded SVG to first diagonal, and SVG to RCA with the proximal section patent and then subtotally occluded and then completely occluded. He was noted to have collateral flow from left to right. Medical therapy was recommended. He appears stable at this time, and denies any recent symptoms or events. He will continue with his current medical therapy, along with aggressive risk factor and lifestyle modifications. He will continue to monitor for any concerning symptoms. (2) Carotid stenosis: Status: Deleted Qualifiers: Laterality: bilateral Qualified Code(s): I65.23 - Occlusion and stenosis of bilateral carotid arteries Plan: Patient has a history of carotid artery stenosis. He is scheduled to follow with vascular for this. He will continue aspirin 81 mg daily, atorvastatin 40 mg daily, and Plavix 75 mg daily. (3) Hypertension: Status: Chronic Qualifiers: Hypertension type: primary hypertension Qualified Code(s): I10 - Essential (primary) hypertension Comment: PER PT, CONTROLLED ON MEDS Plan: Patient has a history of hypertension. His blood pressure is elevated in the office today. He was asked to monitor his blood pressures at home, and notify our office of readings in 1 to 2 weeks. Depending on readings, further recommendations will be made. At this time, he will continue amlodipine 10 mg daily, and metoprolol tartrate 25 mg twice daily. (4) Hyperlipidemia: Status: Chronic Qualifiers: Hyperlipidemia type: mixed hyperlipidemia Qualified Code(s): E78.2 - Mixed hyperlipidemia Plan: Patient has a history of hyperlipidemia. His PCP monitors this. His most recent lipid panel from 10/21/2024: Cholesterol 118, HDL 31, LDL 32, triglycerides 277. He will continue atorvastatin 40 mg daily, along with aggressive risk factor and lifestyle modifications. (5) CVA (cerebral vascular accident): Status: Acute Plan: His brain MRI was consistent with acute to subacute infarcts. The neurologist recommended an implantable loop recorder to look for any atrial fibrillation andwe will place this in the near future. Orders: Orders 2 12 Lead EKG performed by [facility] Today I63.9 - Cerebral infarction, unspecified Loop Recorder Today I63.9 - Cerebral infarction, unspecified Basic Metabolic Profile (BMP) Today I10 - Essential (primary) hypertension, I63.9 - Cerebral infarction, unspecified Plan Details Additional Comments: Patient will follow-up in 12 months, or sooner if needed. Thank you for allowing us to participate in the patients plan of care, if you have any questions please do not hesitate to call. This note was generated using a voice recognition system and there may be incorrect words, spelling or punctuation that were not noted when reviewing the office note prior to saving. Portions of this documentation were copied and pasted from previous office visitnotes to provide a cohesive continuity of the history. The note has been reviewed, edited, and updated, as necessary. Follow Up: 1 Year (kr) Coding Level of Care Code Off vis,est,level 4 Diagnoses Atherosclerosis of [place] coronary artery of [place] heart without angina pectoris I25.10 Coronary Disease-Associated Artery/Lesion type: [place] artery Bilateral carotid artery stenosis I65.23 Laterality: bilateral Primary hypertension I10 Hypertension type: primary hypertension Mixed hyperlipidemia E78.2 Hyperlipidemia type: mixed hyperlipidemia CVA (cerebral vascular accident) I63.9 Coding Level of Care Code Off vis,est,level 4 Diagnoses Atherosclerosis of [place] coronary artery of [place] heart without angina pectoris I25.10 Coronary Disease-Associated Artery/Lesion type: [place] artery Bilateral carotid artery stenosis I65.23 Laterality: bilateral Primary hypertension I10 Hypertension type: primary hypertension Mixed hyperlipidemia E78.2 Hyperlipidemia type: mixed hyperlipidemia CVA (cerebral vascular accident) I63.9 Clinical Quality Measures Falls Risk Screening/Assistive Devices Have you fallen in the past year?: Yes 01/18/25 0924 <Electronically signed by [place] Radha M D> Date _ Canelo Brooks Signature: Date (if applicable) CC: Dr. Lowell Malik MD ~ [facility] Work Phone: [phone]) [phone] Evaluation + Plan note* Assessment & Plan Note - Maria Malik MD - 12/23/2024 8:40 AM EDTAssociated Problem(s): Mild vascular dementia without behavioral disturbance, psychotic disturbance, mood disturbance, or anxiety Patient denies issues, tolerating memantine, able to accomplish day-to-day functions. Orders: Follow Up In Primary Care - Established Follow Up In [facility]; [facility] Work Phone: [phone] 174-274406-26-2025 Evaluation + Plan note* Assessment & Plan Note - Maria Malik MD - 12/23/2024 8:40 AM EDTAssociated Problem(s): Arteriosclerosis of coronary artery Orders: Follow Up In Primary Care - Established Follow Up In [facility] - [facility]; Future [facility] Work Phone: [phone] Evaluation + Plan note* Assessment & Plan Note - Maria Malik MD - 12/23/2024 8:40 AM EDTAssociated Problem(s): Bilateral carotid artery disease Seen neurosurgery at the [facility] in the past week or so, did not believe that the patient was necessarily a candidate for carotid surgery at this point. Orders: Follow Up In Primary Care - Established Follow Up In Primary Care - Established; Future [facility] Work Phone: [phone] Evaluation + Plan note* Assessment & Plan Note - Maria Malik MD - 12/23/2024 8:40 AM EDTAssociated Problem(s): Essential hypertension Blood pressure stable, renal electrolytes stable, no change. Orders: Follow Up In Primary Care - Established amLODIPine (Norvasc) 10 mg tablet; Take 1 tablet (10 mg) by mouth once daily. metoprolol tartrate (Lopressor) 25 mg tablet; Take 1 tablet (25 mg) by mouth 2 times a day. Follow Up In Primary Care - Established; Future Comprehensive Metabolic Panel; Future [facility] Work Phone: [phone] Evaluation + Plan note* Assessment & Plan Note - Maria Malik MD - 12/23/2024 8:40 AM EDTAssociated Problem(s): Hyperlipidemia Continue with 40 mg atorvastatin, LDL cholesterol below 75. Orders: Follow Up In Primary Care - Established atorvastatin (Lipitor) 40 mg tablet; Take 1 tablet (40 mg) by mouth once daily. Follow Up In Primary Care - Established; Future Comprehensive Metabolic Panel; Future Lipid Panel; Future [facility] Work Phone: [phone] Evaluation + Plan note* Assessment & Plan Note - Maria Malik MD - 12/23/2024 8:40 AM EDTAssociated Problem(s): GERD (gastroesophageal reflux disease) Continue with PPI. Orders: Follow Up In Primary Care - Established Follow Up In Primary Care - [facility]; Future [facility] Work Phone: [phone] Evaluation + Plan note* Assessment & Plan Note - Maria Malik MD - 12/23/2024 8:40 AM EDTAssociated Problem(s): Obstructive sleep apnea syndrome Orders: Follow Up In Primary Care - Established Follow Up In Primary [facility] - [facility]; Future [facility] Work Phone: [phone] Evaluation + Plan note* Assessment & Plan Note - Maria Malik MD - 12/23/2024 8:40 AM EDTAssociated Problem(s): Peripheral neuropathy Orders: Follow Up In Primary Care - [facility] Follow Up In [facility]; Future [facility] Work Phone: [phone] Evaluation + Plan note* Assessment & Plan Note - Maria Malik MD - 12/23/2024 8:40 AM EDTAssociated Problem(s): BPH (benign prostatic hyperplasia) Currently asymptomatic. Orders: Follow Up In Primary [facility] Follow Up In [facility]; Future [facility] Work Phone: [phone] Evaluation + Plan note* Assessment & Plan Note - Maria Malik MD - 12/23/2024 8:40 AM EDTAssociated Problem(s): Cerebrovascular accident (CVA) due to thrombosis of right middle cerebral art elvie (Multi) Following with neurology at [facility], had carotid evaluation done, maintained on regular aspirin, blood pressure under good control tolerating statin therapy, no residual effect from stroke in September. Recommend continue to follow-up with cardiology for possible loop recorder. Orders: Follow Up In Primary [facility]; Future [facility] Work Phone: [phone] Evaluation + Plan note* Assessment & Plan Note - Maria Malik MD - 12/23/2024 8:40 AM EDTAssociated Problem(s): Nasal congestion I believe that the patient probably has some chronic nasal allergies and irritations causing postnasal drainage is causing the patient to cough. Did not see much relief with antibiotic and steroid that was given to him in the emergency room, this has been an ongoing chronic issue, recommend over-the- counter allergy medication and nasal steroid sprays. Patient has used these before and gotten somerelief in the past, caution to avoid Sudafed and phenylephrine due to concern for stroke and heart issues. [facility] Work Phone: [phone] History of Present illness Narrative* Maria Malik MD - 12/23/2024 8:40 AM EDT Subjective Reason for Visit: Ashley Wienstein is an 79 y.o. male here for a Medicare Wellness visit. Past Medical, Surgical, and Family History reviewed and updated in chart. Reviewed all medications by prescribing practitioner or clinical pharmacist (such as prescriptions,OTCs, herbal therapies and supplements) and documented in the medical record. HPI Patient was at [facility] emergency room on the for bronchitis, sent home on steroid and Zithromax, coughing with sputum is better, but still there, no SOB, fevers, no wheezing Patient was hospitalized at [facility] in September with an acute stroke. Has since been following with neurology and neurosurgery at the [facility], had recent appointment with neurosurgery on the , they are following his carotid arteries. No headache, chest pain, shortness of breath, dizziness, lightheadedness, or edema Some nasal congestion and drainage No leg weakness or balance No dysphagia or aphasia No headache, chest pain, shortness of breath, dizziness, lightheadedness, or edema Neuropathy some better/manageable Denies memory issues, no issues doing day to day things Sleep +/-, upset at times No bowel or bladder issues Patient Care Team: Maria Malik MD as PCP - General (Family Medicine) Maria Malik MD as PCP - [employer] PCP Review of Systems Constitutional: Negative for activity change, appetite change, fatigue and unexpected weight change. HENT: Positive for congestion and postnasal drip. Negative for ear pain, nosebleeds, rhinorrhea, sneezing and trouble swallowing. Respiratory: Positive for cough. Negative for shortness of breath and wheezing. Cardiovascular: Negative for chest pain, palpitations and leg swelling. Gastrointestinal: Negative for abdominal distention, abdominal pain, constipation, diarrhea, nauseaand vomiting. Genitourinary: Negative for difficulty urinating. Musculoskeletal: Negative for arthralgias. Skin: Negative for rash. Neurological: Negative for dizziness, light-headedness, numbness and headaches. Hematological: Negative for adenopathy. Psychiatric/Behavioral: Negative for behavioral problems. All other systems reviewed and are negative. Objective Vitals: BP 130/80 Pulse (!) 48 Ht 1.702 m (5' 7) Wt 92.8 kg (204 lb 9.6 oz) SpO2 94% BMI 32.04 kg/m Physical Exam Vitals and nursing note reviewed. Constitutional: General: He is not in acute distress. Appearance: Normal appearance. He is not toxic-appearing. HENT: Head: Normocephalic and atraumatic. Right Ear: Tympanic membrane, ear canal and external ear normal. Left Ear: Tympanic membrane, ear canal and external ear normal. Nose: Nose normal. Mouth/Throat: Mouth: Mucous membranes are moist. Pharynx: Oropharynx is clear. Eyes: Extraocular Movements: Extraocular movements intact. Conjunctiva/sclera: Conjunctivae normal. Pupils: Pupils are equal, round, and reactive to light. Cardiovascular: Rate and Rhythm: Normal rate and regular rhythm. Pulses: Normal pulses. Heart sounds: Normal heart sounds. Pulmonary: Effort: Pulmonary effort is normal. Breath sounds: Normal breath sounds. Abdominal: General: Abdomen is flat. Bowel sounds are normal. Palpations: Abdomen is soft. Musculoskeletal: Cervical back: Normal range of motion and neck supple. Skin: General: Skin is warm and dry. Capillary Refill: Capillary refill takes less than 2 seconds. Neurological: General: No focal deficit present. Mental Status: He is alert and oriented to person, place, and time. Mental status is at baseline. Psychiatric: Mood and Affect: Mood normal. Behavior: Behavior normal. Assessment & Plan Mild vascular dementia without behavioral disturbance, psychotic disturbance, mood disturbance, or anxiety Patient denies issues, tolerating memantine, able to accomplish day-to-day functions. Orders: Follow Up In Primary Care - [facility] Follow Up In [facility]; Future Arteriosclerosis of coronary artery Orders: Follow Up In Primary Care [facility] Follow Up In [facility]; Future Bilateral carotid artery disease, unspecified type Seen neurosurgery at the [facility] in the past week or so, did not believe that the patient was necessarily a candidate for carotid surgery at this point. Orders: Follow Up In Primary Care - [facility] Follow Up In [facility]; Future Essential hypertension Blood pressure stable, renal electrolytes stable, no change. Orders: Follow Up In Primary Care - [facility] amLODIPine (Norvasc) 10 mg tablet; Take 1 tablet (10 mg) by mouth once daily. metoprolol tartrate (Lopressor) 25 mg tablet; Take 1 tablet (25 mg) by mouth 2 times a day. Follow Up In Primary Care - [facility]; Future Comprehensive Metabolic Panel; Future Mixed hyperlipidemia Continue with 40 mg atorvastatin, LDL cholesterol below 75. Orders: Follow Up In Primary Care - [facility] atorvastatin (Lipitor) 40 mg tablet; Take 1 tablet (40 mg) by mouth once daily. Follow Up In Primary Care [facility]; Future Comprehensive Metabolic Panel; Future Lipid Panel; Future Gastroesophageal reflux disease without esophagitis Continue with PPI. Orders: Follow Up In Primary Care - [facility] Follow Up In [facility]; Future Obstructive sleep apnea syndrome Orders: Follow Up In Primary Care [facility] Follow Up In [facility]; Future Hypersomnolence Orders: Follow Up In Primary Care - [facility] Follow Up In [facility]; Future Other polyneuropathy Orders: Follow Up In Primary Care [facility] Follow Up In [facility]; Future Routine general medical examination at health care facility Orders: Follow Up In Primary Care [facility] Follow Up In [facility]; Future B12 deficiency Orders: Follow Up In Primary Care [facility] Follow Up In [facility]; Future Benign prostatic hyperplasia without lower urinary tract symptoms Currently asymptomatic. Orders: Follow Up In Primary [facility] Follow Up In Primary [facility]; Future 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 (Multi) Following with neurology at [facility], had carotid evaluation done, maintained on regular aspirin, blood pressure under good control tolerating statin therapy, no residual effect from stroke in September. Recommend continue to follow-up with cardiology for possible loop recorder. Orders: Follow Up In Primary Care - [facility]; Future Screening for prostate cancer Orders: Follow Up In Primary Care - [facility]; Future Prostate Specific Antigen, Screen; Future Nasal congestion I believe that the patient probably has some chronic nasal allergies and irritations causing postnasal drainage is causing the patient to cough. Did not see much relief with antibiotic and steroid that was given to him in the emergency room, this has been an ongoing chronic issue, recommend over-the- counter allergy medication and nasal steroid sprays. Patient has used these before and gotten somerelief in the past, caution to avoid Sudafed and phenylephrine due to concern for stroke and heart issues. [facility] [phone] Instructions* Patient Instructions* Maria Malik MD - 12/23/2024 8:40 AM EDT You can use allergy medicines (Maria Luisa/Claritin/Zyrtec) and nose spray (Nasacort/Flonase) for nasalcongestion [facility] Work Phone: [phone] Miscellaneous Notes* Assessment & Plan Note - Maria Malik MD - 12/23/2024 8:40 AM EDTAssociated Problem(s): Mild vascular dementia without behavioral disturbance, psychotic disturbance, mood disturbance, or anxiety Patient denies issues, tolerating memantine, able to accomplish day-to-day functions. Orders: Follow Up In Primary [facility] - [facility] Follow Up In [facility]; Future * Assessment & Plan Note - Maria Malik MD - 12/23/2024 8:40 AM EDT Associated Problem(s): Arteriosclerosis of coronary artery Orders: Follow Up In Primary Care - [facility] Follow Up In [facility]; Future * Assessment & Plan Note - Maria Malik MD - 12/23/2024 8:40 AM EDT Associated Problem(s): Bilateral carotid artery disease Seen neurosurgery at the [facility] in the past week or so, did not believe that the patient was necessarily a candidate for carotid surgery at this point. Orders: Follow Up In Primary Care [facility] Follow Up In [facility]; Future * Assessment & Plan Note - Maria Malik MD - 12/23/2024 8:40 AM EDT Associated Problem(s): Essential hypertension Blood pressure stable, renal electrolytes stable, no change. Orders: Follow Up In Primary Care - Established amLODIPine (Norvasc) 10 mg tablet; Take 1 tablet (10 mg) by mouth once daily. metoprolol tartrate (Lopressor) 25 mg tablet; Take 1 tablet (25 mg) by mouth 2 times a day. Follow Up In Primary Care - Established; Future Comprehensive Metabolic Panel; Future * Assessment & Plan Note - Maria Malik MD - 12/23/2024 8:40 AM EDT Associated Problem(s): Hyperlipidemia Continue with 40 mg atorvastatin, LDL cholesterol below 75. Orders: Follow Up In Primary Care - Established atorvastatin (Lipitor) 40 mg tablet; Take 1 tablet (40 mg) by mouth once daily. Follow Up In Primary Care - [facility]; Future Comprehensive Metabolic Panel; Future Lipid Panel; Future * Assessment & Plan Note - Maria Malik MD - 12/23/2024 8:40 AM EDT Associated Problem(s): GERD (gastroesophageal reflux disease) Continue with PPI. Orders: Follow Up In Primary Care - Established Follow Up In Primary Care - [facility]; Future * Assessment & Plan Note - Maria Malik MD - 12/23/2024 8:40 AM EDT Associated Problem(s): Obstructive sleep apnea syndrome Orders: Follow Up In Primary Care - Established Follow Up In Primary Care - [facility]; Future * Assessment & Plan Note - Maria Malik MD - 12/23/2024 8:40 AM EDT Associated Problem(s): Peripheral neuropathy Orders: Follow Up In [facility] Follow Up In [facility]; Future * Assessment & Plan Note - Maria Malik MD - 12/23/2024 8:40 AM EDT Associated Problem(s): BPH (benign prostatic hyperplasia) Currently asymptomatic. Orders: Follow Up In [facility] Follow Up In [facility]; Future * Assessment & Plan Note - Maria Malik MD - 12/23/2024 8:40 AM EDT Associated Problem(s): 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 (Multi) Following with neurology at [facility], had carotid evaluation done, maintained on regular aspirin, blood pressure under good control tolerating statin therapy, no residual effect from stroke in September. Recommend continue to follow-up with cardiology for possible loop recorder. Orders: Follow Up In [facility]; Future * Assessment & Plan Note - Maria Malik MD - 12/23/2024 8:40 AM EDT Associated Problem(s): Nasal congestion I believe that the patient probably has some chronic nasal allergies and irritations causing postnasal drainage is causing the patient to cough. Did not see much relief with antibiotic and steroid that was given to him in the emergency room, this has been an ongoing chronic issue, recommend over-the- counter allergy medication and nasal steroid sprays. Patient has used these before and gotten somerelief in the past, caution to avoid Sudafed and phenylephrine due to concern for stroke and heart issues. documented in this [facility] Work Phone: [phone]) 592-383306-23-2025 NoteHNO ID: [id number] Author: NELLIE OWENS MD Service: ? Author Type: Physician Type: Progress Notes Filed: 12/20/2024 11:37 Note Text: Cerebrovascular Center: Cerebrovascular Neurosurgery and Endovascular Surgical Neuroradiology New Visit Ashley Weinstein CC#: [id number] Date of Service: 12/20/2024 Primary Care Provider: Maria Malik MD The patient was referred by No ref. provider found for opinion regarding carotid artery web. I will provide a written report of my findings to the referring through letter, e-communication, or epic. Subjective Ashley Weinstein is a 79-year-old male with a history of hyperlipidemia, carotid artery disease, and neuropathy, presenting for follow-up after a recent stroke. He is accompanied by his daughter, who provides additional history. Ashley experienced a stroke in September while at home, presenting with left leg weakness. He was admitted to [facility] for 24 hours, where a brain MRI revealed multiple small strokes within the right ICA distribution. He did not experience any visual changes or arm weakness. Since discharge, he reports improvement in left leg weakness and does not fear falling. He does not endorse any new symptoms at home and feels back to his normal baseline. Ashley has a history of neuropathy in his feet for the past 2-3 years, characterized by burning and tingling sensations. He is not diabetic and does not endorse back pain. He reports a past neck injury from a fall off a ladder, which previously caused neck pain but has since resolved. He underwent open-heart surgery in 2010 and a carotid artery procedure in 2013 at [facility] in [place]. He has been on atorvastatin (Lipitor) 40 mg since 2016 and takes a baby aspirin daily, reduced from a full aspirin about a year ago by his stone cleaner, Dr. Garcia, at [facility]. He recently started Plavix but was advised to stop aspirin on January 19 and continue Plavix. Ashley wore a heart monitor for two weeks, but it only captured one week of data due to not carrying the accompanying phone. He is also on treatment for sleep apnea. He does not drink alcohol or smoke. He has a family history of diabetes in his mother. He has two daughters and lives in [place], [place]. Stroke Event Information Handedness: Smoking: No Illicit drug use: No Personal HX of HTN: Yes Personal HX of kidney disease: No Family History of SAH, aneurysms, stroke, vascular malformations, other neurological diseases? No REVIEW OF SYSYEMS 14-point systems were reviewed and found negative except to what mentioned in HPI. Nellie Owens MD ACTIVE PROBLEM LIST Enlarged Prostate With Lower Urinary Tract Symptoms (Luts) Bladder Neck Obstruction Elevated Prostate Specific Antigen (Psa) Nocturia Urinary Frequency PAST SURGICAL HISTORY Procedure Laterality Date PAST SURGICAL HISTORY OF 2009 CABG PAST SURGICAL HISTORY OF 2006 bilateral bunionectomies PAST SURGICAL HISTORY OF 2009 OPEN HEART SURGERY PROSTATE BIOPSY 10/2008 Allergies: Penicillins Medications: Current Outpatient Medications Medication Sig azithromycin (ZITHROMAX) 250 mg tablet Take 1 tablet by mouth once daily. clopidogrel (PLAVIX) 75 mg tablet Take 1 tablet by mouth once daily. DULoxetine (CYMBALTA) 60 mg capsule Take 60 mg by mouth. gabapentin (NEURONTIN) 300 mg capsule 300 mg. melatonin 5 mg tablet Melatonin 5 mg tablet Active 15 mg PO AT BEDTIME as needed for Insomnia October 11, 2022 12:00am memantine (NAMENDA) 10 mg tablet 10 mg. atorvastatin (LIPITOR) 40 mg tablet Take 80 mg by mouth once daily. nystatin-triamcinolone (MYCOLOG) ointment Apply 1 application to affected area twice daily. tamsulosin 0.4 mg cp24 Take 1 capsule by mouth once daily. OMEPRAZOLE 40 MG CAP, DELAYED RELEASE as necessary METOPROLOL TARTRATE 25 MG TAB Take one(1) tablet daily. amlodipine besylate(NORVASC 10 MG TAB) Take one(1) tablet daily. aspirin 325 mg tablet Take 1 tablet by mouth once daily. No current facility-administered medications for this visit. Social History Tobacco Use Smoking status: Never Smokeless tobacco: Never Substance Use Topics Alcohol use: No Drug use: No Objective Patient Entered Questionnaires PROMIS/NeuroQoL Score Percentiles Percentiles provide an indication of how a patient's score ranks in relation to the [place] general population. > 31st percentile is within normal limits or better * < 31st percentile is at least ? SD worse than population, which may be clinically relevant < 16th percentile is at least 1 SD worse than population and warrants attention Depression Screening: PHQ-9 Scores: PHQ-9 Self-Harm (Item 9) Response: 0 - 9 No to Mild depression 0 - Not at all 10 - 14 Moderate depression 1 - Several Days > 15 Severe depression 2 - More than half the days 3 - Nearly every day PHYSICAL EXAMINATION BP 129/55 Pulse (! (more content not included)...[facility] 12-20-2024 History of Present illness Narrative* Nellie Owens MD - 12/20/2024 11:35 AM EDT Images from the original note were not included. Cerebrovascular Center: Cerebrovascular Neurosurgery and Endovascular Surgical Neuroradiology New Visit Ashley Weinstein [facility]#: [id number] Date of Service: 12/20/2024 Primary Care Provider: Maria Malik MD The patient was referred by No ref. provider found for opinion regarding carotid artery web. I willprovide a written report of my findings to the referring through letter, e-communication, or epic. Subjective Ashley Weinstein is a 79-year-old male with a history of hyperlipidemia, carotid artery disease, and neuropathy, presenting for follow-up after a recent stroke. He is accompanied by his daughter, who provides additional history. Ashley experienced a stroke in September while at home, presenting with leftleg weakness. He was admitted to [facility] for 24 hours, where a brain MRI revealed multiple small strokes within the right ICA distribution. He did not experience any visual changesor arm weakness. Since discharge, he reports improvement in left leg weakness and does not fear falling. He does not endorse any new symptoms at home and feels back to his normal baseline. Ashley has a history of neuropathy in his feet for the past 2-3 years, characterized by burning and tingling sensations. He is not diabetic and does not endorse back pain. He reports a past neck injury from a fall off a ladder, which previously caused neck pain but has since resolved. He underwent open-heart surgery in 2010 and a carotid artery procedure in 2013 at [facility] in [place]. He has been on atorvastatin (Lipitor) 40 mg since 2016 and takes a baby aspirin daily, reduced from a full aspirin about a year ago by his stone cleaner, Dr. Garcia, at [facility]. He recently started Plavix but was advised to stop aspirin on January 19 and continue Plavix. Ashley wore a heart monitor for two weeks, but it only captured one week of data due to not carrying the accompanying phone. He is also on treatment for sleep apnea. He does not drink alcohol or smoke. He has a family history of diabetes in his mother. He has two daughters and lives in [place], [place]. Stroke Event Information Handedness: Smoking: No Illicit drug use: No Personal HX of HTN: Yes Personal HX of kidney disease: No Family History of SAH, aneurysms, stroke, vascular malformations, other neurological diseases? No REVIEW OF SYSYEMS 14-point systems were reviewed and found negative except to what mentioned in HPI. Nellie Owens MD ACTIVE PROBLEM LIST Enlarged Prostate With Lower Urinary Tract Symptoms (Luts) Bladder Neck Obstruction Elevated Prostate Specific Antigen (Psa) Nocturia Urinary Frequency PAST SURGICAL HISTORY Procedure Laterality Date PAST SURGICAL HISTORY OF 2009 CABG PAST SURGICAL HISTORY OF 2006 bilateral bunionectomies PAST SURGICAL HISTORY OF 2009 OPEN HEART SURGERY PROSTATE BIOPSY 10/2008 Allergies: Penicillins Medications: Current Outpatient Medications Medication Sig azithromycin (ZITHROMAX) 250 mg tablet Take 1 tablet by mouth once daily. clopidogrel (PLAVIX) 75 mg tablet Take 1 tablet by mouth once daily. DULoxetine (CYMBALTA) 60 mg capsule Take 60 mg by mouth. gabapentin (NEURONTIN) 300 mg capsule 300 mg. melatonin 5 mg tablet Melatonin 5 mg tablet Active 15 mg PO AT BEDTIME as needed for Insomnia 2022 12:00am memantine (NAMENDA) 10 mg tablet 10 mg. atorvastatin (LIPITOR) 40 mg tablet Take 80 mg by mouth once daily. nystatin-triamcinolone (MYCOLOG) ointment Apply 1 application to affected area twice daily. tamsulosin 0.4 mg cp24 Take 1 capsule by mouth once daily. OMEPRAZOLE 40 MG CAP, DELAYED RELEASE as necessary METOPROLOL TARTRATE 25 MG TAB Take one(1) tablet daily. amlodipine besylate(NORVASC 10 MG TAB) Take one(1) tablet daily. aspirin 325 mg tablet Take 1 tablet by mouth once daily. No current facility-administered medications for this visit. Social History Tobacco Use Smoking status: Never Smokeless tobacco: Never Substance Use Topics Alcohol use: No Drug use: No Objective Patient Entered Questionnaires PROMIS/NeuroQoL Score Percentiles Percentiles provide an indication of how a patient's score ranks in relation to the [place] general population. > 31st percentile is within normal limits or better * < 31st percentile is at least SD worse than population, which may be clinically relevant < 16th percentile is at least 1 SD worse than population and warrants attention Depression Screening: PHQ-9 Scores: PHQ-9 Self-Harm (Item 9) Response: 0 - 9 No to Mild depression 0 - Not at all 10 - 14 Moderate depression 1 - Several Days > 15 Severe depression 2 - More than half the days 3 - Nearly every day PHYSICAL EXAMINATION BP 129/55 Pulse (!) 46 Ht 167.6 cm (5' 6) Wt 92.5 kg (204 lb) BMI 32.93 kg/m General: Well-developed, well-nourished, in no acute distress. HEENT: Normocephalic, atraumatic. Sclerae anicteric. Lungs: Respirations even and unlabored, on room air. Extremities: No edema, cyanosis, or clubbing. Skin: No rash or ecchymoses. Neurological: Awake, alert, oriented to person, place, and time. Speech fluent, no dysarthria. Goodattention and insight into illness. Cranial Nerves: Pupils equal, extraocular movements intact without nystagmus. Facial sensation and movements normal and symmetric. Tongue midline. Shoulder shrug symmetric. Motor: Normal bulk and tone. Strength 5/5 throughout. No pronator drift or tremor. Sensation: Grossly intact light touch. Coordination: [id number] without dysmetria bilaterally. Gait: Ambulates easily into the office without assistance. RESULTS Outside records were reviewed independently. Assessment & Plan 1. Arterial ischemic stroke, ICA (Internal carotid artery), right, acute (HCC) - Recent MRI from September shows multiple small infarcts within the right frontal lobe. - Undetermined etiology. Possible right large vessel carotid artery thromboembolic origin. Mild degree of stenosis on CTA (<50%). The plaque morphology is suggestive of plauqe ulceration vs unlikely carotid web. - Favor maximal medical managment. Subtherapuetic on Plavix and ASA as edivdent on the most recent ASA/REJI resistence panel. Favor optimizing medical therapy. Discussed carotid reconstruction surgerywith the patient and his daughter, which seem not indicated at present. - Symptoms of left leg weakness have improved. - Discussed potential causes, including carotid artery disease and cardiac sources. - Ordered long-term cardiac monitoring to rule out atrial fibrillation. - Emphasized importance of managing sleep apnea, blood pressure, and maintaining an active lifestyle to reduce stroke risk. 2. Hyperlipidemia, unspecified hyperlipidemia type (E78.5) - Managed with atorvastatin 40 mg daily. - Ordered two additional cholesterol markers to assess underlying risk factors; patient to have labs drawn in one week. - Follow-up with PCP and stone cleaner for ongoing management. 3. Bilateral carotid artery stenosis (I65.23) 4. 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 - Radiologist noted a possible carotid web, but findings are more consistent with ulcerated plaque on my independent review. - No endovascular surgical intervention required at this time. - Ordered carotid ultrasound in six months to monitor stability. 5. History of coronary artery bypass graft (Z95.1) - CABG performed in 2010. - Continue current cardiac management under Dr. Garcia. 6. 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 - Discontinued 81 mg aspirin. - Initiated full-dose aspirin 325 mg daily, non-enteric coated, to be taken after food. - Prescription sent to [facility] in [place], [place]. - Re-evaluate aspirin efficacy with resistance panel in one week. Staff Note I spent a total of 60 minutes on the date of the service which included preparing to see the patient, [id number] patient care, completing clinical documentation, obtaining and/or reviewing separately obtained history, performing a medically appropriate examination, counseling and educating the pat ient/family/caregiver, ordering medications, tests, or procedures, communicating with other HCPs (not separately reported), independently interpreting results (not separately reported), communicatingresults to the patient/family/caregiver, and care coordination (not separately reported). Recording using [employer] software for draft documentation of the visit was discussed with the patient/authorized residential sales representative; all questions welcomed and answered. Patient/authorized residential sales representative agreed to proceed SIGNATURE Nellie Owens MD 12/20/2024 CC Maria Malik ([facility]) [address] [place] [address] documented in this encounterUniversity [facility]als [facility]06-23-2025 Telephone encounter Note * Telephone Encounter - Gustavo Chowdhury - 12/20/2024 10:39 AM EDT Gave patent the Carotid Bilateral & Consult to Cardiology orders to schedule at their convenience dh [facility]06-23-2025 Miscellaneous Notes* Telephone Encounter - Gustavo Chowdhury - 12/20/2024 10:39 AM EDT Gave patent the Carotid Bilateral & Consult to Cardiology orders to schedule at their convenience dh * Telephone Encounter - Mike Salguero - 12/02/2024 8:[address] [facility] Images Imported. * Telephone Encounter - Tony Cordova - 12/02/2024 8:50 AM EDT Rec'd [address] [facility] imported into [employer]. * Telephone Encounter - Mike Salguero - 11/29/2024 12:57 PM EDT Images from the original note were not included. OSH imaging/records received from [facility]: November 29, 2024 -2022 Records available in Care Everywhere -2022 Images documented in this encounterUniversity Hospitals [facility] Center06-23-2025 Instructions* Patient Instructions* Nellie Owens MD - 12/20/2024 9:40 AM EDT - Discontinue Plavix (clopidogrel) and stop the low-dose (81 mg) aspirin. - Start full-dose aspirin 325 mg once daily with food; prescription sent to [facility], [address] [place] [address]. - Continue atorvastatin 40 mg daily for cholesterol management. - Continue all blood pressure medications as prescribed to keep your blood pressure under control. - After 7 days on aspirin 325 mg, have blood drawn for an aspirin and Plavix resistance panel. Check with your local lab ([facility]) to see if they can run these tests; if not, go to [place] or [facility] lab. - At that same visit, order the two cholesterol marker tests discussed (no fasting needed). - Schedule insertion of an implantable operations associate (under-skin loop recorder) for long-term heart rhythm monitoring to detect any intermittent atrial fibrillation. - Continue using your sleep apnea therapy as prescribed. - Follow a healthy diet and engage in regular exercise to improve circulation and reduce stroke risk. - Arrange a carotid duplex ultrasound of both carotid arteries in 6 months to monitor plaque and artery narrowing. - Follow up with Dr. Mio Ma to review imaging and test results and adjust medications as needed. documented in this encounterUniversity Hospitals [facility] Center06-10-2025 Telephone encounter Note * Telephone Encounter - Tony Cordova - 12/07/2024 9:01 AM EDT Rec'd cardiac event monitor report from [employer] imported into [employer]. [facility] Work Phone: [phone]) 107-594006-10-2025 Miscellaneous Notes* Telephone Encounter - Tony Cordova - 12/07/2024 9:01 AM EDT Rec'd cardiac event monitor report from [employer] imported into [employer]. documented in this encounterUniversity Hospitals Lake [facility] Center06-07-2025 NoteHNO ID: [id number] Author: TAJ BALLARD MD Service: ? Author Type: Physician Type: Progress Notes Filed: 01/18/2025 07:39 Note Text: CEREBROVASCULAR CENTER Initial Visit Consultation is requested by: SELF PCP: Tony Fernandez (Zayda) [address] [place] [address] CEREBROVASCULAR HISTORY 79 year old male with known medical history of HTN, HLD, CAD, status post CABG in 2009, status post left CEA for asymptomatic left ICA stenosis in 2013, CATIE on CPAP, neuropathy, and MCI, who, on 10/19/2024, developed acute left leg weakness and was admitted to [facility] where MRI brain showed acute 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 He had been maintained on Aspirin at the time of stroke and was switched to DAPT. His deficits have improved by at least 50%. No stroke recurrence. He was recently seen in the vascular surgery clinic who requested carotid doppler which done only yesterday and showed 50-69% stenosis in right ICA and < 50% stenosis in left ICA Review of system: Nonspecific recurrent right or left eye blurred vision lasting 4-5 minutes. This has been going on for 5-6 years and has been occurring once every 3 months. He has been following in the ophthalmology clinic Social history: Nonsomker. No history of ETOH or drug abuse. No history of head trauma or whiplash. He used to have neck manipulation in the chiropractic clinic and last time was 3-4 years ago. No history of DVT Stroke Event Information Do you have any planned upcoming surgeries or dental procedures? No RN completing documentation PAST MEDICAL HISTORY Diagnosis Date BPH with obstruction/lower urinary tract symptoms CAD (coronary artery disease) Elevated PSA Hypertension PAST SURGICAL HISTORY Procedure Laterality Date PAST SURGICAL HISTORY OF 2009 CABG PAST SURGICAL HISTORY OF 2006 bilateral bunionectomies PAST SURGICAL HISTORY OF 2009 OPEN HEART SURGERY PROSTATE BIOPSY 10/2008 FAMILY HISTORY Problem Relation Age of Onset other (black lung) Father Social History Tobacco Use Smoking status: Never Smokeless tobacco: Never Substance Use Topics Alcohol use: No Drug use: No MEDICATIONS Current Outpatient Medications Medication Sig aspirin 81 mg cap Take by mouth. clopidogrel (PLAVIX) 75 mg tablet Take 1 tablet by mouth once daily. DULoxetine (CYMBALTA) 60 mg capsule Take 60 mg by mouth. gabapentin (NEURONTIN) 300 mg capsule 300 mg. melatonin 5 mg tablet Melatonin 5 mg tablet Active 15 mg PO AT BEDTIME as needed for Insomnia October 11, 2022 12:00am memantine (NAMENDA) 10 mg tablet 10 mg. atorvastatin (LIPITOR) 40 mg tablet Take 80 mg by mouth once daily. METOPROLOL TARTRATE 25 MG TAB Take one(1) tablet daily. amlodipine besylate(NORVASC 10 MG TAB) Take one(1) tablet daily. nystatin-triamcinolone (MYCOLOG) ointment Apply 1 application to affected area twice daily. tamsulosin 0.4 mg cp24 Take 1 capsule by mouth once daily. ASPIRIN 325 MG TAB Take one(1) tablet daily. OMEPRAZOLE 40 MG CAP, DELAYED RELEASE as necessary No current facility-administered medications for this visit. ALLERGIES ALLERGIES Allergen Reactions Penicillins Other: See Comments Passed out PHYSICAL EXAMINATION BP 139/51 Pulse 61 Ht 167.6 cm (5' 6) Wt 92.5 kg (204 lb) BMI 32.93 kg/m? General: Well-developed, well-nourished, in no acute distress. HEENT: Normocephalic, atraumatic Extremities: No edema, cyanosis, or clubbing. No calf tenderness Skin: No rash or ecchymoses. Neurological: Awake, alert, oriented to person, place, and time. Speech fluent, no dysarthria. Naming, repetition, comprehension, intact. Good attention and insight into illness. Cranial Nerves: Extraocular movements intact without nystagmus. Visual uribe full. Facial sensation and movements normal and symmetric. Tongue midline. Trapezius strength 5/5 bilaterally. Motor: Normal bulk and tone. Strength 5/5 throughout. No pronator drift or tremor. Sensation: Intact light touch Coordination: Rapid alternating movements symmetric bilaterally. Bbbrcq-[id number]-[id number], without dysmetria bilaterally. Gait is slow LABS Cholesterol: No results found for: CHOL No results found for: LDL No results found for: HDL No results found for: TG Diabetes: No results found for: HBA1C IMAGING MRI brain done on 10/20/2024: Several punctate foci of diffusion restriction along the right periventricular white matter as well as a diffusion restricting focus in the right frontal lobe subcortical white matter measuring 7 mm consistent with acute/subacute ischemia. Corresponding hyperintense FLAIR signal foci at these locatio (more content not included)...[facility] 12-04-2024 History of Present illness Narrative* Taj Ballard MD - 12/04/2024 2:30 PM EDT CEREBROVASCULAR CENTER Initial Visit Consultation is requested by: SELF PCP: Tony Fernandez ([facility]ayda) [address] [place] [id number] CEREBROVASCULAR HISTORY 79 year old male with known medical history of HTN, HLD, CAD, status post CABG in 2009, status postleft CEA for asymptomatic left ICA stenosis in 2013, CATIE on CPAP, neuropathy, and MCI, who, on 10/19/2024, developed acute left leg weakness and was admitted to [facility] where MRI brain showedacute 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 He had been maintained on Aspirin at the time of stroke and was switched to DAPT. His deficits have improved by at least 50%. No stroke recurrence. He was recently seen in the vascular surgery clinic who requested carotid doppler which done only yesterday and showed 50-69% stenosis in right ICA and < 50% stenosis in left ICA Review of system: Nonspecific recurrent right or left eye blurred vision lasting 4-5 minutes. This has been going on for 5-6 years and has been occurring once every 3 months. He has been following in the ophthalmologyclinic Social history: Nonsomker. No history of ETOH or drug abuse. No history of head trauma or whiplash.He used to have neck manipulation in the chiropractic clinic and last time was 3-4 years ago. No history of DVT Stroke Event Information Do you have any planned upcoming surgeries or dental procedures? No RN completing documentation PAST MEDICAL HISTORY Diagnosis Date BPH with obstruction/lower urinary tract symptoms CAD (coronary artery disease) Elevated PSA Hypertension PAST SURGICAL HISTORY Procedure Laterality Date PAST SURGICAL HISTORY OF 2009 CABG PAST SURGICAL HISTORY OF 2006 bilateral bunionectomies PAST SURGICAL HISTORY OF 2009 OPEN HEART SURGERY PROSTATE BIOPSY 10/2008 FAMILY HISTORY Problem Relation Age of Onset other (black lung) Father Social History Tobacco Use Smoking status: Never Smokeless tobacco: Never Substance Use Topics Alcohol use: No Drug use: No MEDICATIONS Current Outpatient Medications Medication Sig aspirin 81 mg cap Take by mouth. clopidogrel (PLAVIX) 75 mg tablet Take 1 tablet by mouth once daily. DULoxetine (CYMBALTA) 60 mg capsule Take 60 mg by mouth. gabapentin (NEURONTIN) 300 mg capsule 300 mg. melatonin 5 mg tablet Melatonin 5 mg tablet Active 15 mg PO AT BEDTIME as needed for Insomnia 2022 12:00am memantine (NAMENDA) 10 mg tablet 10 mg. atorvastatin (LIPITOR) 40 mg tablet Take 80 mg by mouth once daily. METOPROLOL TARTRATE 25 MG TAB Take one(1) tablet daily. amlodipine besylate(NORVASC 10 MG TAB) Take one(1) tablet daily. nystatin-triamcinolone (MYCOLOG) ointment Apply 1 application to affected area twice daily. tamsulosin 0.4 mg cp24 Take 1 capsule by mouth once daily. ASPIRIN 325 MG TAB Take one(1) tablet daily. OMEPRAZOLE 40 MG CAP, DELAYED RELEASE as necessary No current facility-administered medications for this visit. ALLERGIES ALLERGIES Allergen Reactions Penicillins Other: See Comments Passed out PHYSICAL EXAMINATION BP 139/51 Pulse 61 Ht 167.6 cm (5' 6) Wt 92.5 kg (204 lb) BMI 32.93 kg/m General: Well-developed, well-nourished, in no acute distress. HEENT: Normocephalic, atraumatic Extremities: No edema, cyanosis, or clubbing. No calf tenderness Skin: No rash or ecchymoses. Neurological: Awake, alert, oriented to person, place, and time. Speech fluent, no dysarthria. Naming, repetition, comprehension, intact. Good attention and insight into illness. Cranial Nerves: Extraocular movements intact without nystagmus. Visual uribe full. Facial sensation and movements normal and symmetric. Tongue midline. Trapezius strength 5/5 bilaterally. Motor: Normal bulk and tone. Strength 5/5 throughout. No pronator drift or tremor. Sensation: Intact light touch Coordination: Rapid alternating movements symmetric bilaterally. Pzkzzj-[id number], without dysmetria bilaterally. Gait is slow LABS Cholesterol: No results found for: CHOL No results found for: LDL No results found for: HDL No results found for: TG Diabetes: No results found for: HBA1C IMAGING MRI brain done on 10/20/2024: Several punctate foci of diffusion restriction along the right periventricular white matter as well as a diffusion restricting focus in the right frontal lobe subcorticalwhite matter measuring 7 mm consistent with acute/subacute ischemia. Corresponding hyperintense FLAIR signal foci at these locations. No other diffusion restriction. No evidence of acute intracranialhemorrhage, midline shift or mass effect. No chronic microhemorrhage. Minimal scattered periventricular, subcortical and deep white matter hyperintense FLAIR signal foci consistent with chronic small-vessel ischemic changes. No hydrocephalus CT angiogram of brain and neck done on 10/20/2024: Three-vessel aortic arch with scattered calcific plaque. No focal stenosis or occlusion. Calcific plaque of the left vertebral artery at its origin resulting in mild focal narrowing. The right vertebral artery is widely patent. Calcific plaque of the right cervical common and internal carotid arteries resulting in 30% stenosis on the right by NASCET criteria. 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 Severe mixed atherosclerotic plaque of the left cervical common and internal carotid arteries resulting in 50% stenosis by NASCET criteria on the left. Surgical clips along the left cervical carotid artery, most compatible with prior endarterectomy. Calcification of the bilateral carotid siphons without focal narrowing. The bilateral anterior, middle and posterior cerebral arteries are widely patent. Calcific plaque of the leftintracranial vertebral artery resulting in moderate narrowing. No aneurysm or AVM Carotid doppler done on 12/02/2024: 50-69% stenosis in right ICA and < 50% stenosis in left ICA Echo done on 09/2024 normal 14 days holter results are pending Patient Entered Questionnaires PROMIS/NeuroQoL Score Percentiles Percentiles provide an indication of how a patient's score ranks in relation to the [place] general population. > 31st percentile is within normal limits or better * < 31st percentile is at least SD worse than population, which may be clinically relevant < 16th percentile is at least 1 SD worse than population and warrants attention Depression Screening: PHQ-9 Scores: PHQ-9 Self-Harm (Item 9) Response: 0 - 9 No to Mild depression 0 - Not at all 10 - 14 Moderate depression 1 - Several Days > 15 Severe depression 2 - More than half the days 3 - Nearly every day Stroke Mechanism and Scales IMPRESSION Small right vega radiata and centrum semi-ovale stroke that occurred around six weeks ago stroke.Neurological examination is essentially normal. Stroke work-up, as demonstrated above, showed mild right ICA stenosis and ?carotid web. Stroke mechanism possibly related to the mild right ICA stenosis. Less likely cardiac emboli HTN, HLD, CAD, status post CABG in 2009, status post left CEA for asymptomatic left ICA stenosis [id number], CATIE on CPAP, neuropathy, and mild cognitive impairment PLAN Continue DAPT for a total of 3 months from the stroke onset, then continue only Plavix Aspirin/Plavix resistance test His daughter will fax me the 14 days holter results HTN and HLD control Continue adherence with the CPAP for the underlying CATIE Instructed on all signs and symptoms of stroke Follow up in the vascular surgery clinic Refer to the neuro-endovascular clinic for the right carotid Web Folow with stroke clinic Medical Decision Making: Medical Decision Making Level: 1 - N/A I spent a total of 70 minutes on the date of service which included preparing to see the patient, [id number] patient care, completing clinical documentation, obtaining and/or reviewing separately obtained history, performing a medically appropriate examination, counseling and educating the patient/family/caregiver, ordering medications, tests, or procedures, independently interpreting results (not separately reported), and communicating results to the patient/family/caregiver SIGNATURE Taj Ballard MD CC SELF Tony Fernandez ([facility]) [address] [phone] documented in [facility] Telephone encounter Note * Telephone Encounter - Mike Salguero - 12/02/2024 8:[address] [facility] Images Imported. [facility]06-05-2025 Telephone encounter Note* Telephone Encounter - Tony Cordova - 12/02/2024 8:50 AM EDT Rec'd [address] [facility] imported into [employer]. [facility] Work Phone: 1(359) 801-917506-02-2025 Telephone encounter Note* Telephone Encounter - Mike Salguero - 11/29/2024 12:57 PM EDT Images from the original note were not included. OSH imaging/records received from [facility]: November 29, 2024 -2022 Records available in Care Everywhere -2022 Images [facility]04-24-2025 [facility] Medical Records Department [address] [place] [address] Discharge Summary 10/21/24 1503 MR#: [id number] Acct: [id number] Name: ASHLEY WEINSTEIN Rep #: [id number] : 1945 79 From: Ej Recio DO PCP: Dr. Lowell Malik MD Status:DIS SHASHI Location: [place] [address] Providers Date of Admission: 10/20/24 Date of Discharge: 10/21/24 Primary Care Physician: Dr. Lowell Malik MD Consultations 10/20/24 17:24 Consult: Tele-Neurology Routine Consulting Provider: [facility] Reason for Consult: Acute Ischemic Stroke/TIA EMERGENT Consult: No MD Notified: Yes Date Notified: 10/20/24 Time Notified: 18:52 Method of Notification: Answering Service Nursing Unit Staff Notify [facility] of Tele-Neurology Consult: Yes Reason For Visit: CVS RULE OUT Diagnosis Discharge Diagnosis (1) Left leg weakness: Status: Acute Code(s): R29.898 - Other symptoms and signs involving the musculoskeletal system Plan 1. Acute ischemic stroke right frontal area #2 coronary artery disease #3 GERD #4 essential hypertension Medications at Discharge Home Medications amlodipine 10 mg tablet 10 mg PO DAILY 07/04/21 atorvastatin 40 mg tablet 40 mg PO DAILY 07/04/21 duloxetine 30 mg capsule,delayed release 30 mg PO BID 07/04/21 metoprolol tartrate 25 mg tablet 25 mg PO BID 07/04/21 acetaminophen 500 mg capsule 500 mg PO Q6H PRN Pain 10/11/22 docusate sodium 100 mg capsule 100 mg PO BID PRN Constipation 10/11/22 magnesium 200 mg tablet 200 mg PO DAILY 10/11/22 melatonin 5 mg tablet 15 mg PO QHS PRN Insomnia 10/11/22 omeprazole 40 mg capsule,delayed release 40 mg PO DAILY PRN GERD 10/11/22 aspirin 81 mg tablet,delayed release (Adult Low Dose Aspirin) 81 mg PO DAILY 03/14/23 gabapentin 300 mg capsule 300 mg PO QHS 10/20/24 clopidogrel 75 mg tablet (Plavix) 75 mg PO DAILY #21 tabs 10/21/24 Hospital Course Operations None Procedures 2-D Echocardiogram Summary of Care Provided Minutes Spent on Discharge: 31 Hospital Course: This 79-year-old white male was seen in the emergency room at [facility] as a stroke alert, patient presented with left leg weakness, this was present when he woke up after going to bed at 7:30 PM the night before. Patient stated that the weakness was causing difficulty in ambulation. NIH was 1, CT of the head was negative for acute intracranial process, teleneurology saw the patient and the case was discussed, the patient was not a TNK candidate. CTA of the head and neck showed no LVO AVM or aneurysm. Patient was placed in observation status on PCU and seen by PT and OT, echocardiogram was obtained which showed no [id number] shunt in the atrium. MRI was performed which showed multiple small ischemic strokes in the right frontal area. I talked to teleneurology concerning treatment for this, also talked with his PCP to let him know the patient's medical course. He was not felt to need any follow-up with PT and OT. On 10/21/24, patient was seen and examined: On examination he appeared in good health and spirits. Vital signs as documented. Skin warm and dry and without overt rashes. Neck without JVD, neck was supple, trachea midline, thyroid was normal. Lungs clear bilaterally, normal air movement was noted. Heart exam notable for regular rhythm, normal sounds and absence of murmurs, rubs or gallops. Abdomen unremarkable and without evidence of organomegaly, masses, or abdominal aortic enlargement. Bowel sounds are present, abdomen is not distended. Extremities nonedematous, no cyanosis was noted, no clubbing was noted. Neuro: Cranial nerves II through XII are grossly intact, no focal motor deficits were noted, sensation to light touch and pinprick intact, motor exam 5/5 throughout. Psych: Patient is alert and oriented x3, he does not appear anxious or depressed, he does not appear agitated. Patient was felt to be stable for discharge home on 10/21/2024. Weight / BMI Weight Weight: 91.9 kg Body Mass Index (BMI) 34.7 ABG / Lab / Microbiology Data 10/21/24 07:30 10/21/24 07:30 Laboratory: Laboratory Results - last 24 hr 10/20/24 09:45: Urine Color Yellow, Urine Clarity Clear, Urine pH 7.0, Ur Specific [place] 1.010, U rine Protein 30 H, Urine Glucose (UA) Normal, Urine Ketones Negative, Urine Occult Blood Negative, Urine Nitrite Negative, Urine Bilirubin Negative, Urine Urobilinogen Normal, Ur Leukocyte Esterase Negative, Urine RBC 0 SEEN, Urine WBC 0 SEEN, Ur Squamous Epith Cells 0 SEEN, Urine Bacteria 0 SEEN, Urine Mucus 0 SEEN 10/20/24 16:51: Troponin T Hi Sens 2 Hr 14 10/20/24 18:21: POC Glucose 122 H 10/21/24 05:49: POC Glucose 98 10/21/24 07:30: WBC 5.5, RBC 4.88, Hgb 14.3, Hct 43.3, MCV 88.7, MCH 29.3, MCHC 33.0, RDW Std Deviation 41.3, RDW Coeff of Alexander 12.6, Plt Count 142 L, MPV 9.6, Immature (more content not included)...[facility]04-23-2025 Evaluation note* Diagnosis Onset Date Resolution Status Admit Date Left leg weakness inactive September 292024 3:52pm CVA (cerebral vascular accident) acu te October 29, 2024 10:29am Atherosclerosis of coronary artery of [place] heart without angina pectoris chronic October 29, 2024 10 :29am Hyperlipidemia chronic October 29, 025 10:29am Hypertension chronic October 29 10:29am Carotid stenosis deleted October 29, 2024 10:29am S/p reverse total shoulder arthroplasty acute November 02, 2024 8: 12am [facility] [employer] Work Phone: [phone] Evaluation note* Diagnosis Onset Date Resolution Status Admit Date Left leg weakness inactive September 292024 3:52pm CVA (cerebral vascular accident) acu te October 29, 2024 10:29am Atherosclerosis of coronary artery of [place] heart without angina pectoris chronic October 29, 2024 10 :29am Hyperlipidemia chronic October 29, 025 10:29am Hypertension chronic October 29 10:29am Carotid stenosis deleted October 29, 2024 10:29am S/p reverse total shoulder arthroplasty acute November 02, 2024 8: 12am Bilateral carotid artery stenosis chronic November 24, 2024 8 :58am [facility] Work Phone: 1(212) 293-515404-23-2025 Evaluation note* Diagnosis Onset Date Resolution Status Admit Date Left leg weakness inactive September 292024 3:52pm CVA (cerebral vascular accident) acu te October 29, 2024 10:29am Atherosclerosis of coronary artery of [place] without angina pectoris chronic October 29, 2024 10 :29am Hyperlipidemia chronic October 29, 2 025 10:29am Hypertension chronic October 29 10:29am Carotid stenosis deleted October 29, 2024 10:29am S/p reverse total shoulder arthroplasty acute November 02, 2024 8: 12am Bilateral carotid artery stenosis chronic November 24, 2024 8 :58am CVA (cerebral vascular accident) acu te January 18, 2025 9:00am Atherosclerosis of coronary artery of [place] heart without angina pectoris chronic January 18, 2025 9:00am Hyperlipidemia chronic January 18, 2025 9:00am Hypertension chronic January 18, 025 9:00am Carotid stenosis deleted December 9:00am [facility] Work Phone: 1([phone]) 870-113712-23-2024 Evaluation + Plan note* Assessment & Plan Note - Maria Malik MD - 06/21/2024 1:07 PM ESTAssociated Problem(s): Obstructive sleep apnea syndrome Patient has been using their CPAP nightly and is experiencing restful sleep, no morning headaches, no witnessed snoring, and notices a difference if they do not use the device. [facility] Work Phone: 1(294) 319-807912-23-2024 Evaluation + Plan note* Assessment & Plan Note - Maria Malik MD - 06/21/2024 1:07 PM ESTAssociated Problem(s): Peripheral neuropathy Currently controlled with current prescription for duloxetine and gabapentin. [facility] Work Phone: 1(800) 836-984012-23-2024 Evaluation + Plan note* Assessment & Plan Note - Maria Malik MD - 06/21/2024 1:07 PM ESTAssociated Problem(s): Mild vascular dementia without behavioral disturbance, psychotic disturbance, mood disturbance, or anxiety Stable with current medication, had trouble tolerating donepezil, behaviors seem to be stable according to the patient, family has reported agitation irritability in the past, continue with current medications. [facility] Work Phone: 1(351) 223-806312-23-2024 Miscellaneous Notes* Assessment & Plan Note - Maria Malik MD - 06/21/2024 1:07 PM ESTAssociated Problem(s): Obstructive sleep apnea syndrome Patient has been using their CPAP nightly and is experiencing restful sleep, no morning headaches, no witnessed snoring, and notices a difference if they do not use the device. * Assessment & Plan Note - Maria Malik MD - 06/21/2024 1:07 PM EST Associated Problem(s): Peripheral neuropathy Currently controlled with current prescription for duloxetine and gabapentin. * Assessment & Plan Note - Maria Malik MD - 06/21/2024 1:07 PM EST Associated Problem(s): Mild vascular dementia without behavioral disturbance, psychotic disturbance, mood disturbance, or anxiety Stable with current medication, had trouble tolerating donepezil, behaviors seem to be stable according to the patient, family has reported agitation irritability in the past, continue with current medications. * Assessment & Plan Note - Maria Malik MD - 06/21/2024 1:06 PM EST Associated Problem(s): BPH (benign prostatic hyperplasia) No current issues with symptoms. * Assessment & Plan Note - Maria Malik MD - 06/21/2024 1:06 PM EST Associated Problem(s): GERD (gastroesophageal reflux disease) Controlled on chronic omeprazole. * Assessment & Plan Note - Maria Malik MD - 06/21/2024 1:06 PM EST Associated Problem(s): Hyperlipidemia Continue with current dosing of atorvastatin, liver function testing and lipid profile are acceptable. * Assessment & Plan Note - Maria Malik MD - 06/21/2024 1:06 PM EST Associated Problem(s): Essential hypertension Blood pressure stable, renal and electrolytes are stable no change. [facility] Work Phone: 1([phone]) 428-534012-23-2024 Evaluation + Plan note* Assessment & Plan Note - Maria Malik MD - 06/21/2024 1:06 PM ESTAssociated Problem(s): BPH (benign prostatic hyperplasia) No current issues with symptoms. [facility] Work Phone: 1(846) 589-640212-23-2024 Evaluation + Plan note* Assessment & Plan Note - Maria Malik MD - 06/21/2024 1:06 PM ESTAssociated Problem(s): GERD (gastroesophageal reflux disease) Controlled on chronic omeprazole. [facility] Work Phone: 1(355) 385-625412-23-2024 Evaluation + Plan note* Assessment & Plan Note - Maria Malik MD - 06/21/2024 1:06 PM ESTAssociated Problem(s): Hyperlipidemia Continue with current dosing of atorvastatin, liver function testing and lipid profile are acceptable. [facility] Work Phone: 1([phone]) 916-787112-23-2024 Evaluation + Plan note* Assessment & Plan Note - Maria Malik MD - 06/21/2024 1:06 PM ESTAssociated Problem(s): Essential hypertension Blood pressure stable, renal and electrolytes are stable no change. [facility] Work Phone: [phone] History of Present illness Narrative* Maria Malik MD - 06/21/2024 9:00 AM EST Subjective Patient ID: Ashley Weinstein is a 79 y.o. male who presents for 6 MO LABS. HPI No headache, chest pain, shortness of breath, dizziness, lightheadedness, or edema Taking PPI daily without breakthrough symptoms. Reviewed dietary, caffeine, tobacco, alcohol, and NSAID use. No dyspepsia, dysphagia, reflux, melena, or abdominal pain. Foot burning better, no balance or falling issues Some knee pain Some burning in throat at times, no dysphagia, coughing or hoarseness Patient has been using their CPAP nightly and is experiencing restful sleep, no morning headaches, no witnessed snoring, and notices a difference if they do not use the device. Appetite good, gained weight in the past year Review of Systems Constitutional: Negative for activity change, appetite change, fatigue and unexpected weight change. HENT: Negative for ear pain, nosebleeds, rhinorrhea, sneezing and trouble swallowing. Respiratory: Negative for cough, shortness of breath and wheezing. Cardiovascular: Negative for chest pain, palpitations and leg swelling. Gastrointestinal: Negative for abdominal distention, abdominal pain, constipation, diarrhea, nauseaand vomiting. Genitourinary: Negative for difficulty urinating. Musculoskeletal: Negative for arthralgias. Skin: Negative for rash. Neurological: Negative for dizziness, light-headedness, numbness and headaches. Hematological: Negative for adenopathy. Psychiatric/Behavioral: Negative for behavioral problems. All other systems reviewed and are negative. Objective BP 140/80 Pulse 50 Ht 1.702 m (5' 7) Wt 97.1 kg (214 lb) SpO2 94% BMI 33.52 kg/m Physical Exam Vitals and nursing note reviewed. Constitutional: Appearance: Normal appearance. HENT: Head: Normocephalic and atraumatic. Right Ear: Tympanic membrane, ear canal and external ear normal. Left Ear: Tympanic membrane, ear canal and external ear normal. Nose: Nose normal. Mouth/Throat: Mouth: Mucous membranes are moist. Pharynx: Oropharynx is clear. Cardiovascular: Rate and Rhythm: Normal rate and regular rhythm. Pulses: Normal pulses. Heart sounds: Normal heart sounds. Pulmonary: Effort: Pulmonary effort is normal. Breath sounds: Normal breath sounds. Musculoskeletal: Cervical back: Normal range of motion and neck supple. Skin: General: Skin is warm and dry. Capillary Refill: Capillary refill takes less than 2 seconds. Neurological: Mental Status: He is alert. Psychiatric: Mood and Affect: Mood normal. Behavior: Behavior normal. Assessment/Plan Problem List Items Addressed This Visit ICD-10-CM Arteriosclerosis of coronary artery I25.10 Relevant Orders Follow Up In Primary Care - Established Bilateral carotid artery disease ([facility]) I77.9 Relevant Orders Follow Up In Primary Care - Established BPH (benign prostatic hyperplasia) N40.0 No current issues with symptoms. Relevant Orders Follow Up In Primary Care - Established Essential hypertension - Primary I10 Blood pressure stable, renal and electrolytes are stable no change. Relevant Orders Follow Up In Primary Care - Established Comprehensive Metabolic Panel GERD (gastroesophageal reflux disease) K21.9 Controlled on chronic omeprazole. Relevant Medications omeprazole (PriLOSEC) [address] capsule Other Relevant Orders Follow Up In Primary Care - Established Hyperlipidemia E78.5 Continue with current dosing of atorvastatin, liver function testing and lipid profile are acceptable. Relevant Orders Follow Up In Primary Care - Established Comprehensive Metabolic Panel Cholesterol, LDL Direct Obstructive sleep apnea syndrome G47.33 Patient has been using their CPAP nightly and is experiencing restful sleep, no morning headaches, no witnessed snoring, and notices a difference if they do not use the device. Relevant Orders Follow Up In Primary Care - Established Peripheral neuropathy G62.9 Currently controlled with current prescription for duloxetine and gabapentin. Relevant Orders Follow Up In Primary Care - Established Mild vascular dementia without behavioral disturbance, psychotic disturbance, mood disturbance, or anxiety F01.A0 Stable with current medication, had trouble tolerating donepezil, behaviors seem to be stable according to the patient, family has reported agitation irritability in the past, continue with current medications. Relevant Medications memantine (Namenda) 10 mg tablet Other Relevant Orders Follow Up In Primary Care - Established Other Visit Diagnoses Codes Hypersomnolence G47.10 Relevant Orders Follow Up In Primary Care - Established Routine general medical examination at health care facility Z00.00 Relevant Orders Follow Up In Primary Care - Established Screening for prostate cancer Z12.5 Relevant Orders Follow Up In Primary Care - Established B12 deficiency E53.8 Relevant Orders Follow Up In Primary Care - Established [facility] Work Phone: [phone] Evaluation + Plan note* Assessment & Plan Note - Maria Malik MD - 12/22/2023 9:39 AM EDTAssociated Problem(s): Obstructive sleep apnea syndrome Patient has been using their CPAP nightly and is experiencing restful sleep, no morning headaches, no witnessed snoring, and notices a difference if they do not use the device. [facility] Work Phone: [phone] Evaluation + Plan note* Assessment & Plan Note - Maria Malik MD - 12/22/2023 9:39 AM EDTAssociated Problem(s): Mild vascular dementia without behavioral disturbance, psychotic disturbance, mood disturbance, or anxiety (Multi) Tolerating Namenda, had trouble tolerating donepezil, seems to be stable currently. [facility] Work Phone: [phone] Miscellaneous Notes* Assessment & Plan Note - Maria Malik MD - 12/22/2023 9:39 AM EDTAssociated Problem(s): Obstructive sleep apnea syndrome Patient has been using their CPAP nightly and is experiencing restful sleep, no morning headaches, no witnessed snoring, and notices a difference if they do not use the device. * Assessment & Plan Note - Maria Malik MD - 12/22/2023 9:39 AM EDT Associated Problem(s): Mild vascular dementia without behavioral disturbance, psychotic disturbance, mood disturbance, or anxiety (Multi) Tolerating Namenda, had trouble tolerating donepezil, seems to be stable currently. * Assessment & Plan Note - Maria Malik MD - 12/22/2023 9:38 AM EDT Associated Problem(s): Peripheral neuropathy Continue with duloxetine, patient complaining of pain bothersome, trial of gabapentin 300 mg at at bedtime, reduce B12 to every other day recheck at follow-up. * Assessment & Plan Note - Maria Malik MD - 12/22/2023 9:38 AM EDT Associated Problem(s): GERD (gastroesophageal reflux disease) Controlled on chronic omeprazole. * Assessment & Plan Note - Maria Malik MD - 12/22/2023 9:38 AM EDT Associated Problem(s): Hyperlipidemia Continue with current dosing of atorvastatin, liver function testing and lipid profile are acceptable. * Assessment & Plan Note - Maria Malik MD - 12/22/2023 9:38 AM EDT Associated Problem(s): Essential hypertension Blood pressure stable, renal and electrolytes are stable no change. * Assessment & Plan Note - Maria Malik MD - 12/22/2023 9:37 AM EDT Associated Problem(s): Bilateral carotid artery disease (CMS-HCC) Follows with cardiology at [facility], tolerating medication currently. * Assessment & Plan Note - Maria Malik MD - 12/22/2023 9:37 AM EDT Associated Problem(s): Arteriosclerosis of coronary artery Follows with cardiology at [facility], seen in the past month. documented in this [facility] Work Phone: [phone] Evaluation + Plan note* Assessment & Plan Note - Maria Malik MD - 12/22/2023 9:38 AM EDTAssociated Problem(s): Peripheral neuropathy Continue with duloxetine, patient complaining of pain bothersome, trial of gabapentin 300 mg at at bedtime, reduce B12 to every other day recheck at follow-up. [facility] Work Phone: [phone] Evaluation + Plan note* Assessment & Plan Note - Maria Malik MD - 12/22/2023 9:38 AM EDTAssociated Problem(s): GERD (gastroesophageal reflux disease) Controlled on chronic omeprazole. [facility] Work Phone: [phone] Evaluation + Plan note* Assessment & Plan Note - Maria Malik MD - 12/22/2023 9:38 AM EDTAssociated Problem(s): Hyperlipidemia Continue with current dosing of atorvastatin, liver function testing and lipid profile are acceptable. [facility] Work Phone: [phone] Evaluation + Plan note* Assessment & Plan Note - Maria Malik MD - 12/22/2023 9:38 AM EDTAssociated Problem(s): Essential hypertension Blood pressure stable, renal and electrolytes are stable no change. [facility] Work Phone: [phone] Evaluation + Plan note* Assessment & Plan Note - Maria Malik MD - 12/22/2023 9:37 AM EDTAssociated Problem(s): Bilateral carotid artery disease ([facility]-HCC) Follows with cardiology at [facility], tolerating medication currently. [facility] Work Phone: [phone] Evaluation + Plan note* Assessment & Plan Note - Maria Malik MD - 12/22/2023 9:37 AM EDTAssociated Problem(s): Arteriosclerosis of coronary artery Follows with cardiology at [facility], seen in the past month. [facility] Work Phone: [phone] History of Present illness Narrative* Maria Malik MD - 12/22/2023 8:20 AM EDT Subjective Reason for Visit: Ashley Weinstein is an 78 y.o. male here for a Medicare Wellness visit. Past Medical, Surgical, and Family History reviewed and updated in chart. Reviewed all medications by prescribing practitioner or clinical pharmacist (such as prescriptions,OTCs, herbal therapies and supplements) and documented in the medical record. HPI No headache, chest pain, shortness of breath, dizziness, lightheadedness, or edema Taking PPI daily without breakthrough symptoms. Reviewed dietary, caffeine, tobacco, alcohol, and NSAID use. No dyspepsia, dysphagia, reflux, melena, or abdominal pain. Seen Cardiology in [place] in October Recovered from left humerus fracture, no residual pain, some pain in right arm at times Patient has been using their CPAP nightly and is experiencing restful sleep, no morning headaches, no witnessed snoring, and notices a difference if they do not use the device. Memory OK, no confusion during the day, not having nightmares at night N/T in feet, no falls No constipation issues RN doing OK Patient Care Team: Maria Malik MD as PCP - General (Family Medicine) Maria Malik MD as PCP - [employer] PCP Review of Systems Constitutional: Negative for activity change, appetite change, fatigue and unexpected weight change. HENT: Negative for ear pain, nosebleeds, rhinorrhea, sneezing and trouble swallowing. Respiratory: Negative for cough, shortness of breath and wheezing. Cardiovascular: Negative for chest pain, palpitations and leg swelling. Gastrointestinal: Negative for abdominal distention, abdominal pain, constipation, diarrhea, nauseaand vomiting. Genitourinary: Negative for difficulty urinating. Musculoskeletal: Negative for arthralgias and gait problem. Skin: Negative for rash. Neurological: Positive for numbness. Negative for dizziness, weakness, light- headedness and headaches. Hematological: Negative for adenopathy. Psychiatric/Behavioral: Negative for behavioral problems, dysphoric mood and sleep disturbance. Thepatient is not nervous/anxious. All other systems reviewed and are negative. Objective Vitals: BP 140/80 Pulse 75 Ht 1.702 m (5' 7) Wt 94 kg (207 lb 4.8 oz) SpO2 96% BMI 32.47 kg/m Physical Exam Vitals and nursing note reviewed. Constitutional: General: He is not in acute distress. Appearance: Normal appearance. He is not toxic-appearing. HENT: Head: Normocephalic and atraumatic. Right Ear: Tympanic membrane, ear canal and external ear normal. Left Ear: Tympanic membrane, ear canal and external ear normal. Nose: Nose normal. Mouth/Throat: Mouth: Mucous membranes are moist. Pharynx: Oropharynx is clear. Eyes: Extraocular Movements: Extraocular movements intact. Conjunctiva/sclera: Conjunctivae normal. Pupils: Pupils are equal, round, and reactive to light. Cardiovascular: Rate and Rhythm: Normal rate and regular rhythm. Pulses: Normal pulses. Heart sounds: Normal heart sounds. Pulmonary: Effort: Pulmonary effort is normal. Breath sounds: Normal breath sounds. Musculoskeletal: Cervical back: Normal range of motion and neck supple. Skin: General: Skin is warm and dry. Capillary Refill: Capillary refill takes less than 2 seconds. Neurological: General: No focal deficit present. Mental Status: He is alert and oriented to person, place, and time. Mental status is at baseline. Psychiatric: Mood and Affect: Mood normal. Behavior: Behavior normal. Assessment/Plan Problem List Items Addressed This Visit Arteriosclerosis of coronary artery Overview [id number]/Diag/RPDA Last Assessment & Plan: Overall he seems to be doing reasonably well. He does describe having 1 episode when he was walking into a football game where he developed shortness of breath. That has not been a typical or recurrent problem. He chops wood regularly, is very active overall physically and does not report symptoms of limiting dyspnea, no particular chest pain episodes noted. He does have issues related to a cough and what he describes as mucus. He does not have PND, orthopnea, or lower extremity edema. No other new problems noted. He is compliant with his medical therapy. At this point I think we can continue to follow him medicallyhe will contact us if he has any symptomatic concerns or changes. We will continue regular follow-ups otherwise. Current Assessment & Plan Follows with cardiology at [facility], seen in the past month. Relevant Medications amLODIPine (Norvasc) 10 mg tablet metoprolol tartrate (Lopressor) 25 mg tablet Other Relevant Orders Follow Up In Primary Care - Established Comprehensive Metabolic Panel Lipid Panel Bilateral carotid artery disease ([facility]-HCC) Overview Left CEA-2011 2012-Dopplers great 2015, 2018- 40-59% on L 2019- minimal Plaque Last Assessment & Plan: I reviewed his most recent carotid studies with him, would continue current treatments. Current Assessment & Plan Follows with cardiology at [facility], tolerating medication currently. Relevant Orders Follow Up In Primary Care - Established Essential hypertension Overview Last Assessment & Plan: Dr Malik monitoring Current Assessment & Plan Blood pressure stable, renal and electrolytes are stable no change. Relevant Medications amLODIPine (Norvasc) 10 mg tablet metoprolol tartrate (Lopressor) 25 mg tablet Other Relevant Orders Follow Up In Primary Care - Established Comprehensive Metabolic Panel GERD (gastroesophageal reflux disease) Current Assessment & Plan Controlled on chronic omeprazole. Relevant Orders Follow Up In Primary Care - Established Hyperlipidemia Overview Last Assessment & Plan: Per Dr Malik Current Assessment & Plan Continue with current dosing of atorvastatin, liver function testing and lipid profile are acceptable. Relevant Medications atorvastatin (Lipitor) 40 mg tablet Other Relevant Orders Follow Up In Primary Care - Established Comprehensive Metabolic Panel Lipid Panel Obstructive sleep apnea syndrome Current Assessment & Plan Patient has been using their CPAP nightly and is experiencing restful sleep, no morning headaches, no witnessed snoring, and notices a difference if they do not use the device. Relevant Orders Follow Up In Primary Care - Established Peripheral neuropathy Current Assessment & Plan Continue with duloxetine, patient complaining of pain bothersome, trial of gabapentin 300 mg at at bedtime, reduce B12 to every other day recheck at follow-up. Relevant Medications DULoxetine (Cymbalta) [address] capsule gabapentin (Neurontin) 300 mg capsule Other Relevant Orders Follow Up In Primary Care - Established Comprehensive Metabolic Panel CBC and Auto Differential Vitamin B12 Hemoglobin A1C Mild vascular dementia without behavioral disturbance, psychotic disturbance, mood disturbance, or anxiety (Multi) Current Assessment & Plan Tolerating Namenda, had trouble tolerating donepezil, seems to be stable currently. Relevant Orders Follow Up In Primary Care - Established Comprehensive Metabolic Panel Other Visit Diagnoses Routine general medical examination at health care facility - Primary Relevant Orders Follow Up In Primary Care - Established Hypersomnolence Relevant Orders Follow Up In Primary Care - Established Screening for prostate cancer Relevant Orders Follow Up In Primary Care - Established Prostate Specific Antigen, Screen B12 deficiency Relevant Orders Follow Up In Primary Care - Established CBC and Auto Differential Vitamin B12 Hyperglycemia Relevant Orders Hemoglobin A1C documented [facility] Work Phone: [phone] Instructions* Patient Instructions* Maria Malik MD - 12/22/2023 8:20 AM EDT Try gabapentin at night for numbness in feet, take your B12 every other day documented in [facility] Work Phone: [phone] Evaluation + Plan note* Assessment & Plan Note - aMria Malik MD - 06/20/2023 12:32 PM ESTAssociated Problem(s): Obstructive sleep apnea syndrome Patient noncompliant with CPAP therapy for over 3 months, so having trouble getting replacements for a broken CPAP machine. Repeat home sleep study to assess severity of sleep apnea and try to arrange for new set up through [employer] [facility] Work Phone: [phone] Evaluation + Plan note* Assessment & Plan Note - Maria Malik MD - 06/20/2023 12:32 PM ESTAssociated Problem(s): Peripheral neuropathy Duloxetine helping, symptoms minimal labs normal. [facility] Work Phone: [phone] Evaluation + Plan note* Assessment & Plan Note - Maria Malik MD - 06/20/2023 12:32 PM ESTAssociated Problem(s): Mild vascular dementia without behavioral disturbance, psychotic disturbance, mood disturbance, or anxiety (CMS/HCC) Tolerating memantine, seems to be doing a little bit better, patient denies any new issues. [facility] Work Phone: [phone] 107-603312-22-2023 Miscellaneous Notes* Assessment & Plan Note - Maria Malik MD - 06/20/2023 12:32 PM ESTAssociated Problem(s): Obstructive sleep apnea syndrome Patient noncompliant with CPAP therapy for over 3 months, so having trouble getting replacements for a broken CPAP machine. Repeat home sleep study to assess severity of sleep apnea and try to arrange for new set up through [employer] * Assessment & Plan Note - Maria Malik MD - 06/20/2023 12:32 PM EST Associated Problem(s): Peripheral neuropathy Duloxetine helping, symptoms minimal labs normal. * Assessment & Plan Note - Maria Malik MD - 06/20/2023 12:32 PM EST Associated Problem(s): Mild vascular dementia without behavioral disturbance, psychotic disturbance, mood disturbance, or anxiety (CMS/HCC) Tolerating memantine, seems to be doing a little bit better, patient denies any new issues. * Assessment & Plan Note - Maria Malik MD - 06/20/2023 12:31 PM EST Associated Problem(s): GERD (gastroesophageal reflux disease) Currently stable with omeprazole. * Assessment & Plan Note - Maria Malik MD - 06/20/2023 12:31 PM EST Associated Problem(s): Hyperlipidemia Labs stable, no change with medication. * Assessment & Plan Note - Maria Malik MD - 06/20/2023 12:31 PM EST Associated Problem(s): Essential hypertension Blood pressure stable, no change with medication. * Assessment & Plan Note - Maria Malik MD - 06/20/2023 12:31 PM EST Associated Problem(s): Arteriosclerosis of coronary artery Follows with Cardiology in [place], tolerating medicines documented [facility] Work Phone: [phone] Evaluation + Plan note* Assessment & Plan Note - Maria Malik MD - 06/20/2023 12:31 PM ESTAssociated Problem(s): GERD (gastroesophageal reflux disease) Currently stable with omeprazole. [facility] Work Phone: [phone] Evaluation + Plan note* Assessment & Plan Note - Maria Malik MD - 06/20/2023 12:31 PM ESTAssociated Problem(s): Hyperlipidemia Labs stable, no change with medication. [facility] Work Phone: [phone] Evaluation + Plan note* Assessment & Plan Note - Maria Malik MD - 06/20/2023 12:31 PM ESTAssociated Problem(s): Essential hypertension Blood pressure stable, no change with medication. [facility] Work Phone: [phone] Evaluation + Plan note* Assessment & Plan Note - Maria Malik MD - 06/20/2023 12:31 PM ESTAssociated Problem(s): Arteriosclerosis of coronary artery Follows with Cardiology in [place], tolerating medicines [facility] Work Phone: [phone] History of Present illness Narrative* Maria Malik MD - 06/20/2023 8:20 AM EST Subjective Patient ID: Ashley Weinstein is a 78 y.o. male who presents for 3 MO LABS. HPI No headache, chest pain, shortness of breath, dizziness, lightheadedness, or edema Taking PPI daily without breakthrough symptoms. Reviewed dietary, caffeine, tobacco, alcohol, and NSAID use. No dyspepsia, dysphagia, reflux, melena, or abdominal pain. Doing PT for shoulder, seen ortho in [place] after fall No falls, no dizziness Has some dreams at night, memory stable, moods OK N/T in feet doing OK Has not been using CPAP for the past 3 months Review of Systems Constitutional: Negative for activity change, appetite change, fatigue and unexpected weight change. HENT: Negative for ear pain, nosebleeds, rhinorrhea, sneezing and trouble swallowing. Respiratory: Negative for cough, shortness of breath and wheezing. Cardiovascular: Negative for chest pain, palpitations and leg swelling. Gastrointestinal: Negative for abdominal distention, abdominal pain, constipation, diarrhea, nauseaand vomiting. Genitourinary: Negative for difficulty urinating. Musculoskeletal: Negative for arthralgias. Skin: Negative for rash. Neurological: Negative for dizziness, light-headedness, numbness and headaches. Hematological: Negative for adenopathy. Psychiatric/Behavioral: Negative for behavioral problems. All other systems reviewed and are negative. Current Outpatient Medications: amLODIPine (Norvasc) 10 mg tablet, Take 1 tablet (10 mg) by mouth once daily., Disp: 90 tablet, Rfl: 3 aspirin 81 mg EC tablet, Take 1 tablet (81 mg) by mouth once daily., Disp: , Rfl: atorvastatin (Lipitor) 40 mg tablet, Take 1 tablet (40 mg) by mouth once daily., Disp: 90 tablet, Rfl: 3 docusate sodium (Colace) 100 mg capsule, Take 1 capsule (100 mg) by mouth 2 times a day as needed for constipation., Disp: , Rfl: DULoxetine (Cymbalta) [address] capsule, Take 1 capsule (30 mg) by mouth 2 times a day., Disp: 180 capsule, Rfl: 3 memantine (Namenda) 10 mg tablet, Take 1 tablet (10 mg) by mouth 2 times a day., Disp: 60 tablet, Rfl: 11 metoprolol tartrate (Lopressor) 25 mg tablet, Take 1 tablet (25 mg) by mouth 2 times a day., Disp: 180 tablet, Rfl: 3 omeprazole (PriLOSEC) [address] capsule, Take 1 capsule (40 mg) by mouth once daily., Disp: , Rfl: Objective BP 124/60 Pulse 51 Ht 1.702 m (5' 7) Wt 89 kg (196 lb 3.2 oz) SpO2 97% BMI 30.73 kg/m Physical Exam Vitals and nursing note reviewed. Constitutional: Appearance: Normal appearance. HENT: Head: Normocephalic and atraumatic. Right Ear: Tympanic membrane, ear canal and external ear normal. Left Ear: Tympanic membrane, ear canal and external ear normal. Nose: Nose normal. Mouth/Throat: Mouth: Mucous membranes are moist. Pharynx: Oropharynx is clear. Cardiovascular: Rate and Rhythm: Normal rate and regular rhythm. Pulses: Normal pulses. Heart sounds: Normal heart sounds. Pulmonary: Effort: Pulmonary effort is normal. Breath sounds: Normal breath sounds. Musculoskeletal: Cervical back: Normal range of motion and neck supple. Neurological: Mental Status: He is alert. Psychiatric: Mood and Affect: Mood normal. Behavior: Behavior normal. Assessment/Plan Problem List Items Addressed This Visit ICD-10-CM Arteriosclerosis of coronary artery I25.10 Follows with Cardiology in [place], tolerating medicines Relevant Orders Follow Up In Primary Care - Established Comprehensive Metabolic Panel Cholesterol, LDL Direct Bilateral carotid artery disease (CMS/HCC) I77.9 Relevant Orders Follow Up In Primary Care - Established Essential hypertension I10 Blood pressure stable, no change with medication. Relevant Orders Follow Up In Primary Care - Established Comprehensive Metabolic Panel GERD (gastroesophageal reflux disease) K21.9 Currently stable with omeprazole. Relevant Medications omeprazole (PriLOSEC) [address] capsule Other Relevant Orders Follow Up In Primary Care - Established Hyperlipidemia E78.5 Labs stable, no change with medication. Relevant Orders Follow Up In Primary Care - Established Comprehensive Metabolic Panel Cholesterol, LDL Direct Obstructive sleep apnea syndrome G47.33 Patient noncompliant with CPAP therapy for over 3 months, so having trouble getting replacements for a broken CPAP machine. Repeat home sleep study to assess severity of sleep apnea and try to arrange for new set up through [employer] Relevant Orders Follow Up In Primary Care - Established Home sleep apnea test (HSAT) Peripheral neuropathy G62.9 Duloxetine helping, symptoms minimal labs normal. Relevant Orders Follow Up In Primary Care - Established CBC and Auto Differential Vitamin B12 Mild vascular dementia without behavioral disturbance, psychotic disturbance, mood disturbance, or anxiety (CMS/HCC) - Primary F01.A0 Tolerating memantine, seems to be doing a little bit better, patient denies any new issues. Relevant Medications memantine (Namenda) 10 mg tablet Other Relevant Orders Follow Up In Primary Care - Established Comprehensive Metabolic Panel Other Visit Diagnoses Codes Hypersomnolence G47.10 Relevant Orders Follow Up In Primary Care - Established Home sleep apnea test (HSAT) Patient was identified as a fall risk. Risk prevention instructions provided. documented in [facility] Work Phone: [phone] Instructions* Patient Instructions* Maria Malik MD - 06/20/2023 8:20 AM EST We will do a home sleep test to see how your sleep apnea is doing Ways to Help Prevent Falls at Home Quick Tips ? Ask for help if you need it. Most people want to help! ? Get up slowly after sitting or laying down ? Wear a medical alert device or keep cell phone in your pocket ? Use night lights, especially areas near a bathroom ? Keep the items you use often within reach on a small stool or end table ? Use an assistive device such as walker or cane, as directed by provider/physical therapy ? Use a non-slip mat and grab bars in your bathroom. Look for home health sections for best options Other Areas to Focus On ? Exercise and nutrition: Regular exercise or taking a falls prevention class are great ways improve strength and balance. Don t forget to stay hydrated and bring a snack! ? Medicine side effects: Some medicines can make you sleepy or dizzy, which could cause a fall. Askyour healthcare provider about the side effects your medicines could cause. Be sure to let them know if you take any vitamins or supplements as well. ? Tripping hazards: Remove items you could trip on, such as loose mats, rugs, cords, and clutter. Wear closed toe shoes with rubber soles. ? Health and wellness: Get regular checkups with your healthcare provider, plus routine vision and hearing screenings. Talk with your healthcare provider about: o Your medicines and the possible side effects - bring them in a bag if that is easier! o Problems with balance or feeling dizzy o Ways to promote bone health, such as Vitamin D and calcium supplements o Questions or concerns about falling *Ask your healthcare team if you have questions [facility] 2021 documented in this [facility] Work Phone: [phone] Evaluation + Plan note* Assessment & Plan Note - Maria Malik MD - 03/21/2023 9:02 AM EDTAssociated Problem(s): Obstructive sleep apnea syndrome Patient asking about discontinuing his CPAP machine, encouraged to use the machine as directed. [facility] Work Phone: [phone] Evaluation + Plan note* Assessment & Plan Note - Maria Malik MD - 03/21/2023 9:02 AM EDTAssociated Problem(s): Mild vascular dementia without behavioral disturbance, psychotic disturbance, mood disturbance, or anxiety ([facility]) Discontinue donepezil, patient was instructed to do this at the last office visit but continues to take medication, believe that this may be causing issues with nightmares at night. Increase Namenda to 10 mg twice daily, recheck again in 3 months. [facility] Work Phone: [phone] Evaluation + Plan note* Assessment & Plan Note - Maria Malik MD - 03/21/2023 9:02 AM EDTAssociated Problem(s): Peripheral neuropathy Continue with duloxetine, check labs at follow-up. [facility] Work Phone: [phone] Miscellaneous Notes* Assessment & Plan Note - Maria Malik MD - 03/21/2023 9:02 AM EDTAssociated Problem(s): Obstructive sleep apnea syndrome Patient asking about discontinuing his CPAP machine, encouraged to use the machine as directed. * Assessment & Plan Note - Maria Malik MD - 03/21/2023 9:02 AM EDT Associated Problem(s): Mild vascular dementia without behavioral disturbance, psychotic disturbance, mood disturbance, or anxiety (CMS/HCC) Discontinue donepezil, patient was instructed to do this at the last office visit but continues to take medication, believe that this may be causing issues with nightmares at night. Increase Namenda to 10 mg twice daily, recheck again in 3 months. * Assessment & Plan Note - Maria Malik MD - 03/21/2023 9:02 AM EDT Associated Problem(s): Peripheral neuropathy Continue with duloxetine, check labs at follow-up. * Assessment & Plan Note - Maria Malik MD - 03/21/2023 9:01 AM EDT Associated Problem(s): GERD (gastroesophageal reflux disease) Stable with current medications no issues with dysphagia. * Assessment & Plan Note - Maria Malik MD - 03/21/2023 9:01 AM EDT Associated Problem(s): Nasal congestion Not sure if the patient is continuing to take his ipratropium as prescribed, encouraged to use medication as prescribed. * Assessment & Plan Note - Maria Malik MD - 03/21/2023 9:01 AM EDT Associated Problem(s): Hyperlipidemia DL cholesterol very low, continue with 40 mg atorvastatin. * Assessment & Plan Note - Maria Malik MD - 03/21/2023 9:01 AM EDT Associated Problem(s): Essential hypertension Blood pressure under good control renal function stable, no change. * Assessment & Plan Note - Maria Malik MD - 03/21/2023 9:01 AM EDT Associated Problem(s): Arteriosclerosis of coronary artery Follows with cardiology at [facility]. Continue with current medication. [facility] [phone] Evaluation + Plan note* Assessment & Plan Note - Maria Malik MD - 03/21/2023 9:01 AM EDTAssociated Problem(s): GERD (gastroesophageal reflux disease) Stable with current medications no issues with dysphagia. [facility] Work Phone: [phone] Evaluation + Plan note* Assessment & Plan Note - Maria Malik MD - 03/21/2023 9:01 AM EDTAssociated Problem(s): Nasal congestion Not sure if the patient is continuing to take his ipratropium as prescribed, encouraged to use medication as prescribed. [facility] Work Phone: [phone] Evaluation + Plan note* Assessment & Plan Note - Maria Malik MD - 03/21/2023 9:01 AM EDTAssociated Problem(s): Hyperlipidemia DL cholesterol very low, continue with 40 mg atorvastatin. [facility] Work Phone: [phone] Evaluation + Plan note* Assessment & Plan Note - Maria Malik MD - 03/21/2023 9:01 AM EDTAssociated Problem(s): Essential hypertension Blood pressure under good control renal function stable, no change. [facility] Work Phone: [phone] Evaluation + Plan note* Assessment & Plan Note - Maria Malik MD - 03/21/2023 9:01 AM EDTAssociated Problem(s): Arteriosclerosis of coronary artery Follows with cardiology at [facility]. Continue with current medication. [facility] Work Phone: [phone] History of Present illness Narrative* Maria Malik MD - 03/21/2023 8:40 AM EDT Subjective Patient ID: Ashley Weinstein is a 77 y.o. male who presents for 3 MO LAB. HPI No headache, chest pain, shortness of breath (some LEROY), dizziness, lightheadedness, or edema Had a fall, had a reverse shoulder replacement, had surgery 03/11, has not started PT yet, has follow-up in a week, pain manageable (APAP helps) Fell off of a ladder Dreams some better, some forgetfulness at times, +/- emotional, sleep off and on Sees Cardiology in [place] (Radha) N/T in feet stable Had some constipation after surgery Review of Systems Constitutional: Negative for activity change, appetite change, fatigue and unexpected weight change. HENT: Negative for ear pain, nosebleeds, rhinorrhea, sneezing and trouble swallowing. Respiratory: Negative for cough, shortness of breath and wheezing. Cardiovascular: Negative for chest pain, palpitations and leg swelling. Gastrointestinal: Negative for abdominal distention, abdominal pain, constipation, diarrhea, nauseaand vomiting. Genitourinary: Negative for difficulty urinating. Musculoskeletal: Negative for arthralgias. Skin: Negative for rash. Neurological: Negative for dizziness, light-headedness, numbness and headaches. Hematological: Negative for adenopathy. Psychiatric/Behavioral: Positive for sleep disturbance. Negative for behavioral problems and decreased concentration. The patient is not nervous/anxious. All other systems reviewed and are negative. Objective BP 120/60 Pulse 83 Ht 1.702 m (5' 7) Wt 90.9 kg (200 lb 6.4 oz) SpO2 95% BMI 31.39 kg/m Physical Exam Vitals and nursing note reviewed. Constitutional: Appearance: Normal appearance. HENT: Head: Normocephalic and atraumatic. Right Ear: Tympanic membrane, ear canal and external ear normal. Left Ear: Tympanic membrane, ear canal and external ear normal. Nose: Nose normal. Mouth/Throat: Mouth: Mucous membranes are moist. Pharynx: Oropharynx is clear. Cardiovascular: Rate and Rhythm: Normal rate and regular rhythm. Pulses: Normal pulses. Heart sounds: Normal heart sounds. Pulmonary: Effort: Pulmonary effort is normal. Breath sounds: Normal breath sounds. Musculoskeletal: Cervical back: Normal range of motion and neck supple. Neurological: Mental Status: He is alert. Psychiatric: Mood and Affect: Mood normal. Behavior: Behavior normal. Assessment/Plan Problem List Items Addressed This Visit Arteriosclerosis of coronary artery Follows with cardiology at [facility]. Continue with current medication. Relevant Orders Comprehensive Metabolic Panel Lipid Panel Bilateral carotid artery disease (CMS/HCC) BPH (benign prostatic hyperplasia) Essential hypertension Blood pressure under good control renal function stable, no change. Relevant Orders Comprehensive Metabolic Panel GERD (gastroesophageal reflux disease) Stable with current medications no issues with dysphagia. History of vascular surgery Hyperlipidemia DL cholesterol very low, continue with 40 mg atorvastatin. Relevant Orders Comprehensive Metabolic Panel Lipid Panel Nasal congestion Not sure if the patient is continuing to take his ipratropium as prescribed, encouraged to use medication as prescribed. Obstructive sleep apnea syndrome Patient asking about discontinuing his CPAP machine, encouraged to use the machine as directed. Peripheral neuropathy Continue with duloxetine, check labs at follow-up. Relevant Orders CBC Comprehensive Metabolic Panel Vitamin B12 Mild vascular dementia without behavioral disturbance, psychotic disturbance, mood disturbance, or anxiety (CMS/HCC) Discontinue donepezil, patient was instructed to do this at the last office visit but continues to take medication, believe that this may be causing issues with nightmares at night. Increase Namenda to 10 mg twice daily, recheck again in 3 months. Relevant Medications memantine (Namenda) 10 mg tablet [facility] Work Phone: [phone] Instructions* Patient Instructions* Maria Malik MD - 03/21/2023 8:40 AM EDT Stop donepezil and increase memantine to 10 mg twice a day [facility] Work Phone: [phone] Discharge summary Author Dustin Mosqueda [facility] March 18, 2023 11:44am Note Date/Time March 18, 2023 11:43am [facility] Medical Records Department [address] [place] [address] Instructions for Home/Discharge Instructions 03/18/23 1142 MR#: [id number] Acct: [id number] Name: ASHLEY WEINSTEIN Rep #:[id number] : 1945 77 From: Dustin Mosqueda MD PCP: Dr. Lowell Malik MD Status: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 Discharge Plan Admission Attending Provider: Dustin Mosqueda Primary Care Provider: Lowell Malik Consulting Providers: Wilberto Glover Discharge Orders/Prescriptions Prescriptions: New oxycodone-acetaminophen [Endocet] 5-325 mg tablet 1 tab PO Q4H MDD 6 PRN (Reason: pain) 5 Days Qty: 30 0RF No Action acetaminophen 500 mg capsule 500 mg PO Q6H PRN (Reason: Pain) docusate sodium 100 mg capsule 100 mg PO BID PRN (Reason: Constipation) magnesium 200 mg tablet 200 mg PO MOWEFR melatonin 5 mg tablet 5 mg PO HS PRN (Reason: Insomnia) omeprazole 40 mg capsule,delayed release(DR/EC) 40 mg PO DAILY cyanocobalamin (vitamin B-12) 5,000 mcg tablet, sublingual 5,000 mcg sublingual DAILY donepezil 5 mg tablet 5 mg PO QHS atorvastatin 40 mg tablet 40 mg PO DAILY amlodipine 10 mg tablet 10 mg PO DAILY metoprolol tartrate 25 mg tablet 25 mg PO BID duloxetine 30 mg capsule,delayed release(DR/EC) 30 mg PO BID aspirin [Adult Low Dose Aspirin] 81 mg tablet,delayed release (DR/EC) 81 mg PO DAILY Referrals / Follow Up: Lowell Malik MD [Primary Care Provider] - Dustin Mosqueda MD [Med Staff - Active Staff] - Disposition Disposition (needs filled in before D/C Order can be placed): Home, Self Care 03/18/23 1144<Electronically signed by Dustin Mosqueda MD>Dustin Mosqueda MD CC: Dr. Lowell Malik MD; Dr. Wilberto Glover MD ~ Signed [facility] Work Phone: [phone] Procedure [facility] 03-18-2023 History and physical note Author Dustin Mosqueda [facility] March 18, 2023 7:07am Note Date/Time March 18, 2023 7:08am [facility] Medical Records Department [address] [place] [address] History & Physical Exam 03/18/23 0706 MR#: [id number] Acct: [id number] Name: ASHLEY WEINSTEIN Rep #:[id number] : 1945 77 From: Dustin Mosqueda MD PCP: Dr. Lowell Malik MD Status:[facility] Location: [place] [address] HPI - General HPI Narrative ASHLEY WEINSTEIN, is a 77 M who presents for left reverse shoulder arthroplasty forfracture. No changes to H and P. Plan for block. RAB discussed, narcotic counselling. Left shoulder marked. OK to proceed. Sling after, dc home if able otherwise admit overnight. [facility] [address] [place], [place] [id number] OFFICE VISIT Date of Service: 03/13/23 MR#: [id number] Acct: [id number] Name: ASHLEY WEINSTEIN Rep #: [id number] : 1945 Provider: Dr. Dustin Mosqueda MD Age/Sex: 77/M [place] [facility] Status: Signed Intake Vital Signs 03/11/2314:53 Height 5 ft 6 in Weight: 200 lb BMI 32.3 Intake Visit Reasons: LEFT SHOULDER Chief Complaint: left shoulder Is patient in pain?: Yes Pain scale (1-10): 3 Allergies Penicillins [PCN] Allergy (Verified 03/13/23 09:08) Other Medications amlodipine 10 mg tablet 10 mg PO DAILY 07/04/21 [History Confirmed 03/13/23] atorvastatin 40 mg tablet 40 mg PO DAILY 07/04/21 [History Confirmed 03/13/23] duloxetine 30 mg capsule,delayed release 30 mg PO BID 07/04/21 [History Confirmed 03/13/23] metoprolol tartrate 25 mg tablet 25 mg PO BID 07/04/21 [History Confirmed 03/13/23] acetaminophen 500 mg capsule 500 mg PO Q6H PRN Pain 10/11/22 [History Confirmed 03/13/23] aspirin 325 mg tablet,delayed release 325 mg PO DAILY 10/11/22 [History Confirmed 03/13/23] cholecalciferol (vitamin D3) 50 mcg (2,000 unit) capsule 50 mcg PO DAILY 10/11/22 [History Confirmed 03/13/23] cyanocobalamin (vitamin B-12) 5,000 mcg sublingual tablet 5,000 mcg sublingual DAILY 10/11/22 [History Confirmed 03/13/23] docusate sodium 100 mg capsule 100 mg PO BID PRN Constipation 10/11/22 [History Confirmed 03/13/23] donepezil 5 mg tablet 5 mg PO QHS 10/11/22 [History Confirmed 03/13/23] magnesium 200 mg tablet 200 mg PO DAILY 10/11/22 [History Confirmed 03/13/23] melatonin 5 mg tablet 5 mg PO HS PRN Insomnia 10/11/22 [History Confirmed 03/13/23] omeprazole 40 mg capsule,delayed release 40 mg PO DAILY 10/11/22 [History Confirmed 03/13/23] oxycodone-acetaminophen 5 mg-325 mg tablet (Percocet) 1 tab PO Q4H PRN pain 5 days #14 tabs 03/11/23 [Rx Confirmed 03/13/23] PFSH Medical History Abnormal stress test Atherosclerosis of coronary artery of [place] heart without angina pectoris Back pain BPH (benign prostatic hyperplasia) Cardiology follow-up encounter Chronic idiopathic constipation Closed fracture of left proximal humerus CPAP (continuous positive airway pressure) dependence Depression GERD (gastroesophageal reflux disease) History of heart attack History of stress test Hyperlipidemia Hypertension Insomnia Mild cognitive impairment CATIE (obstructive sleep apnea) Peripheral neuropathy Renal insufficiency Surgical History Failed CABG (coronary artery bypass graft) History of bunionectomy History of cardiac catheterization History of carotid endarterectomy History of carpal tunnel surgery History of coronary artery bypass graft x 3 (~08/02/09) History of open heart surgery Hx laparoscopic cholecystectomy (~05/30/21) Family History Mother DiabetesFather Heart disease Social History Smoking Status: Never smoker alcohol intake: never HPI LEFT SHOULDER Details: Parts of this documentation were recorded by a scribe, this documentation accurately reflects the service provided and the decisions made by me, Dr. Radha MD 03/13/23 0906. ASHLEY WEINSTEIN is a 77 year old M here today for follow-up of left shoulder CT scan for decision making and surgical planning left proximal humerus fracture. Ortho Exam General General: Yes no acute distress Neurologic: Yes alert and Yes oriented x3 Psychologic: Yes reasonable and appropriate Right Wrist/Hand Skin/Wound: Yes Swelling and No Ecchymosis Left Wrist/Hand Skin/Wound: Yes CDI, Yes Swelling, No Ecchymosis, Yes nail intact and Yes capillary refill normal Motor: EPL: 5, FDP-2: 5, 1st Dorsal Interosseous: 5 and APB: 5 Sensation: Radial: I, Ulnar: I and Median: I Left Elbow Skin/Wound: Yes CDI, No eccymosis, No erythema and Yes Swelling Motor: Elbow Extension: 5 and Elbow Flexion: 5 Left Shoulder Skin/Wound: Yes CDI, Yes ecchymosis, No erythema and Yes swelling Testing: Yes TTP Biceps and No TTP AC Joint SHOULDER: closed, normal motor and sens to axillary nerve. Supplemental Info [facility] Imaging Services [address] [place] [address] Extremity Upper without Contra MR#: [id number] Acct: [id number] Name: ASHLEY WEINSTEIN Rep #: [id number] : 1945 M 77 From: Santiago Iqbal MD PCP: Dr. Lowell Malik MD Status: REG CLI Study: Extremity Upper without Contra Date of Exam: 03/11/23 Exam# [id number] Ordering Dr: Dustin Mosqueda MD EXAM: CT LEFT UPPER EXTREMITY WITHOUT INTRAVENOUS CONTRAST CLINICAL INDICATION: injury TECHNIQUE: Helically acquired images were obtained of the left upper extremity without intravenous contrast. 2-D reformats were performed by the technologist. This CT exam was performed using one or more of the following dose reduction techniques: automated exposure control, adjustment of the mA and/or kV according to patient size, and/or use of iterative reconstruction technique. COMPARISON: No relevant prior studies available. FINDINGS: BONES/JOINTS: There is a fracture of the proximal humerus. The humeral head is located in the glenoid fossa. Preservation of the joint space. No sclerotic or destructive changes. SOFT TISSUES: Unremarkable. No soft tissue swelling or gas. No radiopaque foreign body. CT/Extremity Upper without Contra IMPRESSION: Fracture of the proximal humerus. Electronically Signed: Santiago Ibqal MD at 17:13 EDT , agree, 100% displaced, fracture line into the GT and slightly lower than the LT. Coding Level of Care Code Off vis,est,level 3 Diagnoses Closed fracture of left proximal humerus S42.202A Assessment and Plan Assessment and Plan (1) Closed fracture of left proximal humerus: Status: Acute Plan: 77-year-old man with a left proximal humerus fracture. This is 100% displaced. There also appears to be a fracture line extending into the articular surface and involving the greater tuberosity as well as some comminution and discontinuity of the medial calcar segment. Overall this would be at high risk of nonunion with open reduction internal fixation. I think the patient would have quite poor function with nonoperative management in a sling given the amount of displacement and shortening. I think given his age, fracture characteristics the best option to maintain reasonable functional shoulder wouldbe a reverse total shoulder arthroplasty. Explained the pros cons risk and benefits of each of these methods of treatment to him. However, with a reverse shoulder arthroplasty there is risk of fracture loosening instability weakness damage to blood vessels nerves overall complication rate may be up to 20% for reverse for fracture but overall that would be my recommendation in this setting. He understands wishes to proceed with left reverse total shoulder arthroplasty. We will get a cardiac clearance he has had a bypass in the past is not on anticoagulants. I will meet with the device rep tomorrow for surgicalplanning and try to get the case done sometime next week. This will be a plan to be cemented with a fracture platform stem as well. Pros and cons risks and benefits were discussed with the patient including but not limited to infection, pain, stiffness, bleeding, damage to surrounding structures, neurovascular injury, recurrence or retear, failure or wear of hardware or fixation, instability, fracture, deep vein thrombosis and pulmonary embolism, anesthetic risks, , patient dissatisfaction, need for further surgery and other risks. Patient understood and wished to proceed with surgery,and signed the informed consent documentation. [facility] Medical History (Updated 03/14/23 @ 13:44 by Reyna Miles) Abnormal stress test Atherosclerosis of coronary artery of [place] heart without angina pectoris BPH (benign prostatic hyperplasia) Cardiology follow-up encounter Chronic idiopathic constipation Closed fracture of left proximal humerus CPAP (continuous positive airway pressure) dependence Depression Dietary restriction GERD (gastroesophageal reflux disease) History of echocardiogram History of edema History of heart attack History of stress test Hyperlipidemia Hypertension Insomnia Mild cognitive impairment Non-smoker CATIE (obstructive sleep apnea) Peripheral neuropathy Postoperative urinary retention Renal insufficiency Wears glasses Home Medications amlodipine 10 mg tablet 10 mg PO DAILY 07/04/21 [History Last Taken Unknown] atorvastatin 40 mg tablet 40 mg PO DAILY 07/04/21 [History Last Taken Unknown] duloxetine 30 mg capsule,delayed release 30 mg PO BID 07/04/21 [History Last Taken Unknown] metoprolol tartrate 25 mg tablet 25 mg PO BID 07/04/21 [History Last Taken Unknown] acetaminophen 500 mg capsule 500 mg PO Q6H PRN Pain 10/11/22 [History Last Taken Unknown] cyanocobalamin (vitamin B-12) 5,000 mcg sublingual tablet 5,000 mcg sublingual DAILY 10/11/22 [History Last Taken Unknown] docusate sodium 100 mg capsule 100 mg PO BID PRN Constipation 10/11/22 [History Last Taken Unknown] donepezil 5 mg tablet 5 mg PO QHS 10/11/22 [History Last Taken Unknown] magnesium 200 mg tablet 200 mg PO MOWEFR 10/11/22 [History Last Taken Unknown] melatonin 5 mg tablet 5 mg PO HS PRN Insomnia 10/11/22 [History Last Taken Unknown] omeprazole 40 mg capsule,delayed release 40 mg PO DAILY 10/11/22 [History Last Taken Unknown] aspirin 81 mg tablet,delayed release (Adult Low Dose Aspirin) 81 mg PO DAILY 03/14/23 [History Last Taken Unknown] Allergy/AdvReac Type Severity Reaction Status Date / Time Penicillins [PCN] Allergy Other Verified 03/18/23 06:29 Family History Mother Diabetes Father Heart disease Surgical History (Updated 03/14/23 @ 13:42 by Reyna Miles) Failed CABG (coronary artery bypass graft) History of bunionectomy History of cardiac catheterization History of carotid endarterectomy History of carpal tunnel surgery History of colonoscopy History of coronary artery bypass graft x 3 (~08/02/09) History of open heart surgery History of transurethral resection of prostate Hx laparoscopic cholecystectomy (~05/30/21) Social History Smoking Status: Never smoker alcohol intake: never Vital Signs Vital Signs Vital Signs: 03/18/23 06:26 03/18/23 06:26 Temperature 97.4 F L Temperature Source Temporal Pulse Rate 68 Respiratory Rate 18 Respiratory Pattern Normal Blood Pressure 147/68 H Blood Pressure Mean 94 Blood Pressure Source Monitor Blood Pressure Position Semi-Fowlers Blood Pressure Location Right Arm Pulse Ox 98 Oxygen Delivery Method Room Air Weight Weight: 196 lb 3.382 oz Body Mass Index (BMI) 31.6 Results Lab / Micro Data 03/17/23 07:37 03/17/23 07:37 Labs: Laboratory Results - last 24 hr 03/17/23 07:37: WBC 6.5, RBC 4.58 L, Hgb 13.6, Hct 42.0, MCV 91.7, MCH 29.7, MCHC 32.4, RDW Std Deviation 40.9, RDW Coeff of Alexander 12.4, Plt Count 241, MPV 9.0, Immature Gran % (Auto) 0.600, Neut % (Auto) 64.4, Lymph % (Auto) 22.8, [place] % (Auto) 10.0, Eos % (Auto) 2.0, Baso % (Auto) 0.2, Absolute Neuts (auto) 4.2, Absolute Lymphs (auto) 1.49, Nucleated RBC % 0, PT 13.6, INR 1.0, APTT 33.9, Sodium 138, Potassium 4.2, Chloride 103, Carbon Dioxide 31.0, Anion Gap 4 L, BUN 24 H, Creatinine 1.18, Est GFR (MDRD) Af Amer 77, Est GFR (MDRD) Non-Af 64, BUN/Creatinine Ratio 20.3 H, Glucose 107 H, Hemoglobin A1c 5.6, Fructosamine 205, Calcium 9.0, Magnesium 2.5, Blood Type O POSITIVE, Antibody Screen NEGATIVE 03/18/23 06:24: POC Glucose 129 H 03/18/23 0707 <Electronically signed by Dustin Mosqueda MD> Cosigner Signature (if applicable): CC: Dr. Lowell Malik MD; Dr. Dustin Mosqueda MD~ Signed [facility] Work Phone: 1(880) [phone] Evaluation + Plan note* Assessment & Plan Note - Maria Malik MD - 11/29/2022 12:29 PM EDTAssociated Problem(s): Nasal congestion Stable with ipratropium nasal spray. [facility] Work Phone: 1([phone]) 257-580706-02-2023 Evaluation + Plan note* Assessment & Plan Note - Maria Malik MD - 11/29/2022 12:29 PM EDTAssociated Problem(s): Hyperlipidemia LDL cholesterol at goal, no change with medication. [facility] Work Phone: 1(644) 914-556706-02-2023 Miscellaneous Notes* Assessment & Plan Note - Maria Malik MD - 11/29/2022 12:29 PM EDTAssociated Problem(s): Nasal congestion Stable with ipratropium nasal spray. * Assessment & Plan Note - Maria Malik MD - 11/29/2022 12:29 PM EDT Associated Problem(s): Hyperlipidemia LDL cholesterol at goal, no change with medication. * Assessment & Plan Note - Maria Malik MD - 11/29/2022 12:28 PM EDT Associated Problem(s): BPH (benign prostatic hyperplasia) No current issues with symptoms. * Assessment & Plan Note - Maria Malik MD - 11/29/2022 12:28 PM EDT Associated Problem(s): GERD (gastroesophageal reflux disease) Stable with chronic medication. * Assessment & Plan Note - Maria Malik MD - 11/29/2022 12:28 PM EDT Associated Problem(s): Essential hypertension Blood pressure under good control renal function stable, no change with medication. * Assessment & Plan Note - Maria Malik MD - 11/29/2022 12:28 PM EDT Associated Problem(s): Bilateral carotid artery disease (CMS/HCC) Carotid ultrasound done at least yearly, appears to be stable. * Assessment & Plan Note - Maria Malik MD - 11/29/2022 12:26 PM EDT Associated Problem(s): Arteriosclerosis of coronary artery Patient change stone cleaner to [facility], recent blood testing was reviewed and all appears to be stable. * Assessment & Plan Note - Maria Malik MD - 11/29/2022 12:26 PM EDT Associated Problem(s): Mild vascular dementia without behavioral disturbance, psychotic disturbance, mood disturbance, or anxiety (CMS/HCC) Patient complaining that donepezil is giving him vivid nightmares and dreams, try changing Namenda 5 mg twice daily, recheck again in 3 months. * Assessment & Plan Note - Maria Malik MD - 11/29/2022 12:25 PM EDT Associated Problem(s): Peripheral neuropathy Seems to be controlled with duloxetine, patient's vitamin B12 level is elevated, advised that he can stop his supplementation. documented in this [facility] Work Phone: [phone]) 612-985306-02-2023 Evaluation + Plan note* Assessment & Plan Note - Maria Malik MD - 11/29/2022 12:28 PM EDTAssociated Problem(s): BPH (benign prostatic hyperplasia) No current issues with symptoms. [facility] Work Phone: [phone] [phone] Evaluation + Plan note* Assessment & Plan Note - Maria Malik MD - 11/29/2022 12:28 PM EDTAssociated Problem(s): GERD (gastroesophageal reflux disease) Stable with chronic medication. [facility] Work Phone: [phone]) 655-748706-02-2023 Evaluation + Plan note* Assessment & Plan Note - Maria Malik MD - 11/29/2022 12:28 PM EDTAssociated Problem(s): Essential hypertension Blood pressure under good control renal function stable, no change with medication. [facility] Work Phone: 1([phone]) 263-183006-02-2023 Evaluation + Plan note* Assessment & Plan Note - Maria Malik MD - 11/29/2022 12:28 PM EDTAssociated Problem(s): Bilateral carotid artery disease (CMS/HCC) Carotid ultrasound done at least yearly, appears to be stable. [facility] Work Phone: [phone] Evaluation + Plan note* Assessment & Plan Note - Maria Malik MD - 11/29/2022 12:26 PM EDTAssociated Problem(s): Arteriosclerosis of coronary artery Patient change stone cleaner to [facility], recent blood testing was reviewed and all appears to be stable. [facility] Work Phone: [phone]) 421-608406-02-2023 Evaluation + Plan note* Assessment & Plan Note - Maria Malik MD - 11/29/2022 12:26 PM EDTAssociated Problem(s): Mild vascular dementia without behavioral disturbance, psychotic disturbance, mood disturbance, or anxiety (CMS/HCC) Patient complaining that donepezil is giving him vivid nightmares and dreams, try changing Namenda 5 mg twice daily, recheck again in 3 months. [facility] Work Phone: [phone]) 309-632806-02-2023 Evaluation + Plan note* Assessment & Plan Note - Maria Malik MD - 11/29/2022 12:25 PM EDTAssociated Problem(s): Peripheral neuropathy Seems to be controlled with duloxetine, patient's vitamin B12 level is elevated, advised that he can stop his supplementation. [facility] Work Phone: [phone] 519-176806-02-2023 History of Present illness Narrative* Maria Malik MD - 11/29/2022 9:00 AM EDT Subjective Patient ID: Ashley Weinstein is a 77 y.o. male who presents for 3 MO LABS. HPI No headache, chest pain, shortness of breath, dizziness, lightheadedness, or edema Taking PPI daily without breakthrough symptoms. Reviewed dietary, caffeine, tobacco, alcohol, and NSAID use. No dyspepsia, dysphagia, reflux, melena, or abdominal pain. Rhinitis doing OK Having dreams at night since starting donepezil, patient denies issues with memory or mood Review of Systems Constitutional: Negative for activity change, appetite change, fatigue and unexpected weight change. HENT: Negative for ear pain, nosebleeds, rhinorrhea, sneezing and trouble swallowing. Respiratory: Negative for cough, shortness of breath and wheezing. Cardiovascular: Negative for chest pain, palpitations and leg swelling. Gastrointestinal: Negative for abdominal distention, abdominal pain, constipation, diarrhea, nauseaand vomiting. Genitourinary: Negative for difficulty urinating. Musculoskeletal: Negative for arthralgias. Skin: Negative for rash. Neurological: Negative for dizziness, light-headedness, numbness and headaches. Hematological: Negative for adenopathy. Psychiatric/Behavioral: Negative for behavioral problems. All other systems reviewed and are negative. Objective BP 138/60 Pulse 55 Ht 1.702 m (5' 7) Wt 91.5 kg (201 lb 11.2 oz) SpO2 95% BMI 31.59 kg/m Physical Exam Vitals and nursing note reviewed. Constitutional: Appearance: Normal appearance. Cardiovascular: Rate and Rhythm: Normal rate and regular rhythm. Pulses: Normal pulses. Heart sounds: Normal heart sounds. Pulmonary: Effort: Pulmonary effort is normal. Breath sounds: Normal breath sounds. Neurological: Mental Status: He is alert. Psychiatric: Mood and Affect: Mood normal. Behavior: Behavior normal. Assessment/Plan Problem List Items Addressed This Visit Nervous Obstructive sleep apnea syndrome - Primary Relevant Orders Follow Up In Primary Care Peripheral neuropathy Seems to be controlled with duloxetine, patient's vitamin B12 level is elevated, advised that he can stop his supplementation. Relevant Orders Follow Up In Primary Care Mild vascular dementia without behavioral disturbance, psychotic disturbance, mood disturbance, or anxiety ([facility]) Patient complaining that donepezil is giving him vivid nightmares and dreams, try changing Namenda 5 mg twice daily, recheck again in 3 months. 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, recent blood testing was reviewed and all appears to be stable. Relevant Orders Follow Up In Primary Care Bilateral carotid artery disease ([facility]) Carotid ultrasound done at least yearly, appears to be stable. Relevant Orders Follow Up In Primary Care Essential hypertension Blood pressure under good control renal function stable, no change with medication. Relevant Orders Follow Up In Primary Care Comprehensive Metabolic Panel History of vascular surgery Relevant Orders Follow Up In Primary Care Digestive GERD (gastroesophageal reflux disease) Stable with chronic medication. Relevant Orders Follow Up In Primary Care Genitourinary BPH (benign prostatic hyperplasia) No current issues with symptoms. Relevant Orders Follow Up In Primary Care Other Hyperlipidemia LDL cholesterol at goal, no change with medication. Relevant Orders Follow Up In Primary Care Comprehensive Metabolic Panel Cholesterol, LDL Direct Nasal congestion Stable with ipratropium nasal spray. Relevant Orders Follow Up [facility] [phone] Instructions* Patient Instructions* Maria Malik MD - 11/29/2022 9:00 AM EDT Stop donepezil due to nightmares and start memantine twice a day for memory. You can stop B12 replacement since your levels are high [facility] 1(304) 988-849309-30-2022 Evaluation + Plan note* Assessment & Plan Note - Felecia Hamilton MD - 03/29/2022 8:33 AM EDTAssociated Problem(s): Coronary artery disease involving white mountain coronary artery of white mountain heart with out angina pectoris Overall he seems to be doing reasonably well. He does describe having 1 episode when he was walkinginto a football game where he developed shortness of breath. That has not been a typical or recurrent problem. He chops wood regularly, is very active overall physically and does not report symptoms of limiting dyspnea, no particular chest pain episodes noted. He does have issues related to a cough and what he describes as mucus. He does not have PND, orthopnea, or lower extremity edema. No othernew problems noted. He is compliant with his medical therapy. At this point I think we can continueto follow him medically he will contact us if he has any symptomatic concerns or changes. We will continue regular follow-ups otherwise. [id number] Miscellaneous Notes* Assessment & Plan Note - Felecia Hamilton MD - 03/29/2022 8:33 AM EDTAssociated Problem(s): Coronary artery disease involving white mountain coronary artery of white mountain heart without angina pectoris Overall he seems to be doing reasonably well. He does describe having 1 episode when he was walkinginto a football game where he developed shortness of breath. That has not been a typical or recurrent problem. He chops wood regularly, is very active overall physically and does not report symptoms of limiting dyspnea, no particular chest pain episodes noted. He does have issues related to a cough and what he describes as mucus. He does not have PND, orthopnea, or lower extremity edema. No othernew problems noted. He is compliant with his medical therapy. At this point I think we can continueto follow him medically he will contact us if he has any symptomatic concerns or changes. We will continue regular follow-ups otherwise. documented in this [id number] History of Present illness Narrative* Felecia Hamilton MD - 03/29/2022 8:20 AM EDT General Cardiology Clinic Follow-up Heart & Vascular [facility] 03/29/2022 Felecia Hamilton MD [address] [place] [address] [phone] Patient: Ashley Weinstein Date of : 1945 (76 y.o.) PCP: Maria Malik MD Assessment & Plan Coronary artery disease involving white mountain coronary artery of white mountain heart without angina pectoris Overall he seems to be doing reasonably well. He does describe having 1 episode when he was walkinginto a football game where he developed shortness of breath. That has not been a typical or recurrent problem. He chops wood regularly, is very active overall physically and does not report symptoms of limiting dyspnea, no particular chest pain episodes noted. He does have issues related to a cough and what he describes as mucus. He does not have PND, orthopnea, or lower extremity edema. No othernew problems noted. He is compliant with his medical therapy. At this point I think we can continueto follow him medically he will contact us if he has any symptomatic concerns or changes. We will continue regular follow-ups otherwise. Follow-up: Return in about 6 months (around 09/26/2022). Subjective History of Present Illness: Ashley Weinstein is a 76 y.o. male This is a 76-year-old gentleman. He has a history of coronary disease having had bypass surgery to 3 vessels in 2019. History of carotid disease having had a left carotid endarterectomy. I visited with him last in November. SPECT study done this year showed an inferior infarct with mild inferolateral and apical ischemia ejection fraction was preserved, we continued medical therapy. Holter monitor showed PACs. Carotid duplex study showed less than 50% stenosis in the right, the left carotid endarterectomy site had mild restenosis. When I saw him in November he was doing well and not reporting any anginal symptoms. He comes in for follow-up today. Objective Tobacco Use Smoking Status Never Smokeless Tobacco Never ECG 12 lead Final Result by Felecia Hamilton MD (09/25/2021 0921) HOME Medications: Patient's Medications New Prescriptions No medications on file Previous Medications AMLODIPINE (NORVASC) 10 MG TABLET Take 10 mg by mouth daily. ASPIRIN 325 MG EC TABLET Take 325 mg by mouth daily. ATORVASTATIN (LIPITOR) 40 MG TABLET Take 40 mg by mouth daily . DULOXETINE (CYMBALTA) 60 MG CAPSULE Take 60 mg by mouth daily . FLUTICASONE PROPIONATE (FLONASE) 50 MCG/ACTUATION NASAL SPRAY Instill into each nostril every nightat bedtime . METOPROLOL TARTRATE (LOPRESSOR) 25 MG TABLET Take 25 mg by mouth 2 (two) times a day . UNABLE TO FIND Neuropathy away supp. BID . Modified Medications No medications on file Discontinued Medications No medications on file Vital Signs: BP (!) 147/72 (BP Location: Left arm, Patient Position: Sitting, BP Cuff Size: Adult) Pulse 64 Ht 5' 6 Wt 91.5 kg (201 lb 11.2 oz) SpO2 94% BMI 32.56 kg/m Physical Exam Vitals reviewed. Constitutional: Appearance: He is well-developed. Eyes: General: No scleral icterus. Neck: Thyroid: No thyromegaly. Cardiovascular: Rate and Rhythm: Normal rate and regular rhythm. Occasional Extrasystoles are present. Heart sounds: Normal heart sounds. No murmur heard. No friction rub. No gallop. Pulmonary: Effort: Pulmonary effort is normal. Breath sounds: Normal breath sounds. No wheezing or rales. Abdominal: Palpations: Abdomen is soft. There is no mass. Tenderness: There is no guarding or rebound. Musculoskeletal: Cervical back: Neck supple. Skin: General: Skin is warm and dry. Neurological: General: No focal deficit present. Mental Status: He is alert and oriented to person, place, and time. Psychiatric: Mood and Affect: Mood normal. Labs: I personally reviewed and interpreted the labs documented below. Lab Results Component Value Date CHOL 95 (L) 02/18/2022 LDLCALC 29 02/18/2022 LDLDIRECT 37 08/20/2021 TRIG 140 02/18/2022 HDL 38 (L) 02/18/2022 Creatinine clearance cannot be calculated (Patient's most recent lab result is older than the maximum 14 days allowed.) documented in this [id number] Instructions* Patient Instructions* Krystyna Johnson MA - 03/29/2022 8:15 AM EDT You can reach Dr Hamilton's nurse Brittany Ramey RN, at [phone]. If unable to reach us please leave a detailed voicemail message. We regularly check our messages when we are in clinic and will return your call in 24 hours. REFILLS: When in need for refills please call the above number. Please relay your name, date and phonenumber. We request that you include medication name, dose, pharmacy name and location of pharmacy in your message. Be sure to specify 30-day or 90-day supply requested. Please check with your pharmacy within 24-48 hours of request for your refill. You must follow up as directed to continue current refills. FOLLOW UP VISIT: Regarding your follow up office visit: The return date listed below is an approximate date of when your next office visit will be. We will call you a month before that date to schedule your office visit. If you have not heard from us by the date listed below please call the office at [phone] and ask to speak to the schedulers to make an appointment. *If you made an -appointment prior to leaving the office today disregard this message. To cancel or reschedule your office visit or testing please call [phone]. If you need to cancel it must be 24 hours prior to that appt. Thank you. ....If you were seen in the [place] office today. If any testing was ordered a application security engineer from [facility] will call you to schedule your testing. If you do not hear from a application security engineer after a couple of days please call the office at [phone] and ask to speak to a application security engineer. documented in this [id number] Evaluation + Plan note* Assessment & Plan Note - Felecia Hamilton MD - 12/20/2021 9:57 AM EDT Associated Problem(s): Bilateral carotid artery disease (HCC) I reviewed his most recent carotid studies with him, would continue current treatments. [id number] Evaluation + Plan note* Assessment & Plan Note - Felecia Hamilton MD - 12/20/2021 9:57 AM EDTAssociated Problem(s): Coronary artery disease involving white mountain coronary artery of white mountain heart without angina pectoris He is doing well. Is very active around his house and home, does not report any exertional chest pain. At the time of his original coronary problems he predominantly had back symptoms and fatigue. Hehas not reported any of that currently and has done quite well since his original surgery. I reviewed his stress test with him, I think we can continue to treat him medically at this point. He is on appropriate or full therapies. We will continue to follow him periodically here in the clinic he knows to contact us if he does have any symptomatic changes. [id number] Miscellaneous Notes* Assessment & Plan Note - Felecia Hamilton MD - 12/20/2021 9:57 AM EDTAssociated Problem(s): Bilateral carotid artery disease (HCC) I reviewed his most recent carotid studies with him, would continue current treatments. * Assessment & Plan Note - Felecia Hamilton MD - 12/20/2021 9:57 AM EDT Associated Problem(s): Coronary artery disease involving white mountain coronary artery of white mountain heart without angina pectoris He is doing well. Is very active around his house and home, does not report any exertional chest pain. At the time of his original coronary problems he predominantly had back symptoms and fatigue. Hehas not reported any of that currently and has done quite well since his original surgery. I reviewed his stress test with him, I think we can continue to treat him medically at this point. He is on appropriate or full therapies. We will continue to follow him periodically here in the clinic he knows to contact us if he does have any symptomatic changes. documented in this [id number] Instructions* Patient Instructions* Krystyna Johnson MA - 12/20/2021 9:41 AM EDT You can reach Dr Hamilton's nurse, Brittany Ramey at [phone]. If unable to reach us please leave a detailed voicemail message. We regularly check our messages when we are in clinic and will return your call in 24 hours. REFILLS: When in need for refills please call the above number. Please relay your name, date and phonenumber. We request that you include medication name, dose, pharmacy name and location of pharmacy in your message. Be sure to specify 30-day or 90-day supply requested. Please check with your pharmacy within 24-48 hours of request for your refill. You must follow up as directed to continue current refills. FOLLOW UP VISIT: Regarding your follow up office visit: The return date listed below is an approximate date of when your next office visit will be. We will call you a month before that date to schedule your office visit. If you have not heard from us by the date listed below please call the office at [phone] and ask to speak to the schedulers to make an appointment. *If you made an -appointment prior to leaving the office today disregard this message. To cancel or reschedule your office visit or testing please call [phone]. If you need to cancel it must be 24 hours prior to that appt. Thank you. ....If you were seen in the [place] office today. If any testing was ordered a application security engineer from [facility] will call you to schedule your testing. If you do not hear from a application security engineer after a couple of days please call the office at [phone] and ask to speak to a application security engineer. documented in this [id number] History of Present illness Narrative* Felecia Hamilton MD - 12/20/2021 9:40 AM EDT General Cardiology Clinic Follow-up Heart & Vascular [facility] 12/20/2021 Felecia Hamilton MD [address] [place] [address] [phone] Patient: Ashley Weinstein Date of : 1945 (76 y.o.) PCP: Maria Malik MD Assessment & Plan Coronary artery disease involving white mountain coronary artery of white mountain heart without angina pectoris He is doing well. Is very active around his house and home, does not report any exertional chest pain. At the time of his original coronary problems he predominantly had back symptoms and fatigue. Hehas not reported any of that currently and has done quite well since his original surgery. I reviewed his stress test with him, I think we can continue to treat him medically at this point. He is on appropriate or full therapies. We will continue to follow him periodically here in the clinic he knows to contact us if he does have any symptomatic changes. Bilateral carotid artery disease (HCC) I reviewed his most recent carotid studies with him, would continue current treatments. Follow-up: Return in about 9 months (around 09/19/2022). Subjective History of Present Illness: Ashley Weinstein is a 76 y.o. male This is a 76-year-old gentleman. He has a history of coronary disease having had bypass surgery in 2009. He had 3 vessels grafted at that time. He has had a left carotid endarterectomy. Duplex study in 2019 showed minimal stenosis bilaterally. I saw him in August this year in [place]. He seemed to be doing well. EKG showed some nonspecific changes in the office. He underwent an exercise myocardialperfusion study on October 08. He had an inferior infarct, mild inferolateral and apical ischemia noted. Ejection fraction was preserved. We elected to continue medical therapy in the absence of any significant symptoms. He had a Holter monitor completed which showed PACs. No significant arrhythmias otherwise. Carotid duplex study showed less than 50% stenosis in the right, the site of the previousendarterectomy on the left had mild restenosis. Objective Tobacco Use Smoking Status Never Smokeless Tobacco Never ECG 12 lead Final Result by Felecia Hamilton MD (09/25/2021 0921) HOME Medications: Patient's Medications New Prescriptions No medications on file Previous Medications AMLODIPINE (NORVASC) 10 MG TABLET Take 10 mg by mouth daily. ASPIRIN 325 MG EC TABLET Take 325 mg by mouth daily. ATORVASTATIN (LIPITOR) 40 MG TABLET Take 40 mg by mouth daily . DULOXETINE (CYMBALTA) 60 MG CAPSULE Take 60 mg by mouth daily . METOPROLOL TARTRATE (LOPRESSOR) 25 MG TABLET Take 25 mg by mouth 2 (two) times a day . UNABLE TO FIND Neuropathy away supp . Modified Medications No medications on file Discontinued Medications No medications on file Vital Signs: BP 127/73 (BP Location: Right arm, Patient Position: Sitting, BP Cuff Size: Adult) Pulse (!) 55 Ht 5' 6 Wt 93.3 kg (205 lb 9.6 oz) SpO2 95% BMI 33.18 kg/m Physical Exam Vitals reviewed. Constitutional: Appearance: He is well-developed. Eyes: General: No scleral icterus. Neck: Thyroid: No thyromegaly. Cardiovascular: Rate and Rhythm: Normal rate and regular rhythm. Heart sounds: Normal heart sounds. No murmur heard. No friction rub. No gallop. Pulmonary: Effort: Pulmonary effort is normal. Breath sounds: Normal breath sounds. No wheezing or rales. Abdominal: Palpations: Abdomen is soft. There is no mass. Tenderness: There is no guarding or rebound. Musculoskeletal: Cervical back: Neck supple. Skin: General: Skin is warm and dry. Neurological: General: No focal deficit present. Mental Status: He is alert and oriented to person, place, and time. Psychiatric: Mood and Affect: Mood normal. Labs: I personally reviewed and interpreted the labs documented below. Lab Results Component Value Date CHOL 91 (L) 05/15/2021 LDLCALC 25 05/15/2021 LDLDIRECT 37 08/20/2021 TRIG 165 (H) 05/15/2021 HDL 33 (L) 05/15/2021 Creatinine clearance cannot be calculated (Patient's most recent lab result is older than the maximum 14 days allowed.) documented in this [id number] Evaluation + Plan note* Assessment & Plan Note - Felecia Hamilton MD - 09/25/2021 9:33 AM EDT Associated Problem(s): Bilateral carotid artery disease (HCC) History of left carotid endarterectomy. 2019 duplex study was unremarkable, we will update that again in November or December. [id number] Miscellaneous Notes* Assessment & Plan Note - Felecia Hamilton MD - 09/25/2021 9:33 AM EDTAssociated Problem(s): Bilateral carotid artery disease (HCC) History of left carotid endarterectomy. 2019 duplex study was unremarkable, we will update that again in November or December. * Assessment & Plan Note - Felecia Hamilton MD - 09/25/2021 9:32 AM EDT Associated Problem(s): Coronary artery disease involving white mountain coronary artery of white mountain heart without angina pectoris Prior to his surgery he was reporting exertional back and neck pain. He is done quite well since surgery, has been very active is not had any recurrent cardiac symptoms that he is aware of. He is undergone additional surgical procedures without complications. Seems to be reasonably active currentlydoes not report exertional chest pain or pressure symptoms. He had some EKG changes today which maybe nonspecific however I think since his surgery now dates more than 5 years in the past is reasonable update a stress study, we will also do a 24-hour Holter to assess his PVC burden. Medical therapy is appropriate. He tells me he gets his laboratories completed through his primary care, or try toget copies of laboratories. I did not make any additional medical changes we will follow up on his noninvasive studies with any additional recommendations needed, will continue to maintain regular follow-up with him otherwise here in [place]. documented in this [id number] Evaluation + Plan note* Assessment & Plan Note - Felecia Hamilton MD - 09/25/2021 9:32 AM EDT Associated Problem(s): Coronary artery disease involving white mountain coronary artery of white mountain heart without angina pectoris Prior to his surgery he was reporting exertional back and neck pain. He is done quite well since surgery, has been very active is not had any recurrent cardiac symptoms that he is aware of. He is undergone additional surgical procedures without complications. Seems to be reasonably active currentlydoes not report exertional chest pain or pressure symptoms. He had some EKG changes today which maybe nonspecific however I think since his surgery now dates more than 5 years in the past is reasonable update a stress study, we will also do a 24-hour Holter to assess his PVC burden. Medical therapy is appropriate. He tells me he gets his laboratories completed through his primary care, or try toget copies of laboratories. I did not make any additional medical changes we will follow up on his noninvasive studies with any additional recommendations needed, will continue to maintain regular follow-up with him otherwise here in [place]. [id number] History of Present illness Narrative* Felecia Hamilton MD - 09/25/2021 9:20 AM EDT General Cardiology Clinic Follow-up Heart & Vascular [facility] 09/25/2021 Felecia Hamilton MD [address] [facility] [id number] Patient: Ashley Weinstein Date of : 1945 (76 y.o.) PCP: Maria Malik MD Assessment & Plan Coronary artery disease involving white mountain coronary artery of white mountain heart without angina pectoris Prior to his surgery he was reporting exertional back and neck pain. He is done quite well since surgery, has been very active is not had any recurrent cardiac symptoms that he is aware of. He is undergone additional surgical procedures without complications. Seems to be reasonably active currentlydoes not report exertional chest pain or pressure symptoms. He had some EKG changes today which maybe nonspecific however I think since his surgery now dates more than 5 years in the past is reasonable update a stress study, we will also do a 24-hour Holter to assess his PVC burden. Medical therapy is appropriate. He tells me he gets his laboratories completed through his primary care, or try toget copies of laboratories. I did not make any additional medical changes we will follow up on his noninvasive studies with any additional recommendations needed, will continue to maintain regular follow-up with him otherwise here in [place]. Bilateral carotid artery disease (HCC) History of left carotid endarterectomy. 2019 duplex study was unremarkable, we will update that again in November or December. Follow-up: Return in about 6 months (around 03/28/2022). Subjective History of Present Illness: Ashley Weinstein is a 76 y.o. male This is a 76-year-old who is been following with the [place] cardiology group. He has a history of coronary disease had bypass surgery in 2009. At that time he had left internal mammary artery graft placed to his left anterior descending, bypass to a diagonal branch vessel, bypass to the right PDA branch. He has a history of bilateral carotid disease having had left carotid endarterectomy in 2011. He was seen in August 2020. Seemed to be doing well at that time. Carotid duplex study was updated in November 2019 he had minimal stenosis noted bilaterally. Recent LDL cholesterol was 37. Objective Tobacco Use Smoking Status Never Smoker Smokeless Tobacco Never Used Imaging: I independently reviewed the EKG and agree with the interpretation(s) with the following comments. EKG showed normal sinus rhythm, right bundle branch block, left axis, T wave changes cannotexclude inferior ischemia. Changes noted are new from his previous tracings. ECG 12 lead Final Result by Felecia Hamilton MD (09/25/2021 [id number]) HOME Medications: Patient's Medications New Prescriptions No medications on file Previous Medications AMLODIPINE (NORVASC) 10 MG TABLET Take 10 mg by mouth daily. ASPIRIN 325 MG EC TABLET Take 325 mg by mouth daily. ATORVASTATIN (LIPITOR) 40 MG TABLET Take 40 mg by mouth daily . DULOXETINE (CYMBALTA) 60 MG CAPSULE Take 60 mg by mouth daily . METOPROLOL TARTRATE (LOPRESSOR) 25 MG TABLET Take 25 mg by mouth 2 (two) times a day . Modified Medications No medications on file Discontinued Medications FINASTERIDE (PROSCAR) 5 MG TABLET Take 5 mg by mouth daily . FLUTICASONE PROPIONATE (FLONASE) 50 MCG/ACTUATION NASAL SPRAY Instill 2 sprays into each nostril daily . LORATADINE (CLARITIN) 10 MG TABLET Take 10 mg by mouth daily . TAMSULOSIN (FLOMAX) 0.4 MG CAPSULE Take 0.4 mg by mouth daily. TRIAMTERENE-HYDROCHLOROTHIAZIDE (DYAZIDE) 37.5-25 MG PER CAPSULE Take 1 capsule by mouth daily . Vital Signs: BP (!) 147/75 (BP Location: Left arm, Patient Position: Sitting, BP Cuff Size: Adult) Pulse 65 Ht 5' 6 Wt 91.7 kg (202 lb 3.2 oz) SpO2 95% BMI 32.64 kg/m Physical Exam Constitutional: Appearance: He is well-developed. Eyes: General: No scleral icterus. Neck: Thyroid: No thyromegaly. Cardiovascular: Rate and Rhythm: Normal rate. Occasional extrasystoles are present. Heart sounds: Normal heart sounds. No murmur heard. No friction rub. No gallop. Pulmonary: Effort: Pulmonary effort is normal. Breath sounds: Normal breath sounds. No wheezing or rales. Abdominal: Palpations: Abdomen is soft. There is no mass. Tenderness: There is no guarding or rebound. Musculoskeletal: Cervical back: Neck supple. Skin: General: Skin is warm and dry. Neurological: General: No focal deficit present. Mental Status: He is alert and oriented to person, place, and time. Psychiatric: Mood and Affect: Mood normal. Labs: I personally reviewed and interpreted the labs documented below. Lab Results Component Value Date CHOL 91 (L) 05/15/2021 LDLCALC 25 05/15/2021 LDLDIRECT 37 08/20/2021 TRIG 165 (H) 05/15/2021 HDL 33 (L) 05/15/2021 Creatinine clearance cannot be calculated (Patient's most recent lab result is older than the maximum 14 days allowed.) documented in this [id number] Instructions* Patient Instructions* Evelina Rivera RN - 09/25/2021 8:17 AM EDT You can reach Dr Hamilton's nurses, Evelina Rivera RN and Laurel Velázquez RN, at [phone]. If unable to reach us please leave a detailed voicemail message. We regularly check our messages when we are in clinic and will return your call in 24 hours. REFILLS: When in need for refills please call the above number. Please relay your name, date and phonenumber. We request that you include medication name, dose, pharmacy name and location of pharmacy in your message. Be sure to specify 30-day or 90-day supply requested. Please check with your pharmacy within 24-48 hours of request for your refill. You must follow up as directed to continue current refills. FOLLOW UP VISIT: Regarding your follow up office visit: The return date listed below is an approximate date of when your next office visit will be. We will call you a month before that date to schedule your office visit. If you have not heard from us by the date listed below please call the office at [phone] and ask to speak to the schedulers to make an appointment. *If you made an -appointment prior to leaving the office today disregard this message. To cancel or reschedule your office visit or testing please call [phone]. If you need to cancel it must be 24 hours prior to that appt. Thank you. ....If you were seen in the [place] office today. If any testing was ordered a application security engineer from [facility] group will call you to schedule your testing. If you do not hear from a application security engineer after a couple of days please call the office at [phone] and ask to speak to a application security engineer. NUCLEAR MEDICINE CARDIAC STRESS TEST THIS IS A 3-4 HOUR TEST Instructions: Appointment Time: , ____/____/____ at ____:____ Prep: DO NOT Take your morning medications. Please bring your morning medications with you. NO CAFFEINE FOR 24 HOURS prior to your test. This includes drinks labeled decaffeinated. Nothing to eat 4 hours prior to your test. A small snack will be provided (crackers, granola bar, juice), or you may bring your own snack for after your stress test. You may drink fluids leading up to your test as long as they are caffeine-free. Decaffeinated drinks still contain some caffeine, please do not drink anything containing caffeine for 24 hours. NO SMOKING the day of your test. Wear comfortable shoes and clothing for exercising. Please wear short sleeves. No metal buttons or snaps. Procedure: Check-in/Registration. Please bring photo ID, insurance cards, and any physician orders. Test explained in detail and IV started. Stress test performed, nuclear medicine will be injected through your IV during the stress test. Stress test recovery period. Heart scan performed. The doctor will review the pictures of your heart and decide if more pictures are needed before youleave. If more are needed you will get another injection of nuclear medicine and this will take an additional hour. The total time for this test is 3-4 hours. There are medications that interfere with this test. You may be instructed to hold medications. If so that will be listed here: If you have any further questions please contact your care team or [phone]. documented in this [id number] NoteSend Summary: Discharge Summary Providers: Provider RoleProvider Name ReferringMatty Swift AttendingMatty Swift ConsultingKathy Duffy Aaron M Nurse PractitionerHartley, Dianna PrimaryBoyd, Christopher Note Recipients: Maria Malik MD Discharge: Summary: Admission Date: .04-Jun-2021 09:39:00 Discharge Date: 05-Jun-2021 Attending Physician at Discharge: Matty Swift Admission Reason: Urinary retention(1) Final Discharge Diagnoses: BPH (benign prostatic hyperplasia) Procedures: none Condition at Discharge: Satisfactory Disposition at Discharge: .Home Vital Signs: T PRBPSpO2 [id number]/6096% Date/Time06/05 8: 8: 8: 8: 8:10 Range(35.8C - 36.5C ) (64 - 79 ) (18 - 20 ) (121 - 159 )/ (51 - 68 ) (90% - 97% ) As of 05-Jun-2021 08:10:00, patient is on 2 L/min of oxygen via nasal cannula. Date: Weight/Scale Type:Height: 04-Jun-2021 16:4891 kg / lhx622.5 cm Physical Exam: Constitutional: No acute distress well-appearing HEENT: PERRL sclera anicteric Respiratory/thorax: Lung sounds clear throughout CV: S1-S2 regular rate and rhythm GI: Soft nontender bowel sounds present x4 normoactive Extremities: No peripheral edema Genitourinary: Santiago catheter clear yellow urine mild adalberto strands of blood no sediment Neuro: Alert and oriented x3 no focal deficit Hospital Course: ASHLEY WEINSTEIN is a 76 year old male who presents to the emergency department with a chief complaint of abdominal pain. Patient states that he had a cholecystectomy on May [address] Avalos. He states that he began having abdominal discomfort approx. 4 days ago mostly around the drain site. He states two and half days ago he could not have any bowel movements and two days ago he has not urinated except for a very small amount of urine. he states the pain was so bad he could feel it in both sides of his kidneys. He came to the ED, they placed a Santiago catheter and he tells me he was told estimate 3 L of urine. He states that Dr. Duffy came in to the ED and told him everything looks good from his surgery. He states he hopes to be discharged in the am. I did explain that he has not had a bowel movement in 3 days and we would assist with medications to hopefully he can pass stool. Also told patient that nephrology would see him based upon the presentation of his BAO. He is okay with the plan. He denies any fever, chills, shortness of breath, chest pain. Hospital course: Santiago catheter was placed in the emergency department. His urine is clear there is some mild stranding of red flecks in the catheter tubing. He denies any pain. His creatinine improved from 6.48-1.69. He was evaluated by nephrology and from a renal standpoint patient is okay to be discharged to home. General surgery was consulted and he had severe constipation which was given a bowel regimen has had multiple bowel movements and feels better. Patient has an established plan of care post procedure and is known to his urologist Dr. Sarabia With [facility] in [place].Patient has had multiple procedures in the past requiring a Santiago catheter for a few week duration. Patient was offered to discontinue the Santiago catheter and to straight catheterize for bladder training and he refused. He states this is the way that it is always been done. He was educated on Santiago care declines catheter with soap and water stroking down away from the meatus. He clinically feels better and is requesting to be discharged home. He is being discharged home in stable condition. Discharge time greater than 30 minutes. Discharge plan of care was discussed with patient and his . His was trying to talk and the patient looked at his and she instantly was quiet and no longer made eye contact or spoke with me when discussing dc plan. Discharge Information: and Continuing Care: Lab Results - Pending: None Radiology Results - Pending: None Discharge Instructions: Activity: activity as tolerated. Balance activity with rest, gradually increase your activity as tolerated Exercise as prescribed by your physician Catheter Care: Type: indwelling Catheter Care: soap and water Date Last Changed: inserted on 06/04/2021 in the ED Additional Orders: Additional Instructions: Monitor the color of your urine. If it changes to cloudy or you notice different consistency or spasms around the bladder notify your urologist or your primary care physician immediately. Notify doctor if you develop fever or chills temperature greater than 100.4. Your urinalysis on admission is clean without evidence of infection. You do not warrant antibiotics at time of discharge. You do need to follow with your urologist and continue your finasteride. Follow Up Appointments: Follow-Up Appointment 01: Physician/Dept/Service: Maria Quinonez (more content not included)...[facility]12-06-2021 Note History of Present Illness: Admission Reason: Abdominal pain HPI: ASHLEY WEINSTEIN is a 76 year old male who presents to the emergency department with a chief complaint of abdominal pain. Patient states that he had a cholecystectomy on May [address] Avalos. He states that he began having abdominal discomfort approx. 4 days ago mostly around the drain site. He states two and half days ago he could not have any bowel movements and two days ago he has not urinated except for a very small amount of urine. he states the pain was so bad he could feel it in both sides of his kidneys. He came to the ED, they placed a Santiago catheter and he tells me he was told estimate 3 L of urine. He states that Dr. Duffy came in to the ED and told him everything looks good from his surgery. He states he hopes to be discharged in the am. I did explain that he has not had a bowel movement in 3 days and we would assist with medications to hopefully he can pass stool. Also told patient that nephrology would see him based upon the presentation of his BAO. He is okay with the plan. He denies any fever, chills, shortness of breath, chest pain. Obtained from medical charts: Past medical history: CAD, HTN, Hypercholesteremia, BPH, GERD, hyperlipidemia, renal insufficiency, insomnia, CATIE, carpal tunnel right wrist, chronic idiopathic constipation, peripheral neuropathy Past surgical history: Cholecystectomy May 30, 2021, Failed CABG, colonoscopy Social history: Non smoker, denies alcohol consumption Family history: DM Comorbidities: Comorbidites: Comorbid Conditionson list Social History: Social History: Smoking Statusnever smoker (1) Alcohol Usedenies(1) Drug Usedenies (1) Allergies: penicillin: Unknown Medications Prior to Admission: Admission Medication Reconciliation has not been completed for this patient. Review of Systems: Constitutional: NEGATIVE: Fever, Chills, Anorexia, Weight Loss, Malaise Eyes: NEGATIVE: Vision Loss/ Change ENMT: NEGATIVE: Nasal Congestion, Ear Pain, Mouth Pain, Throat Pain Respiratory: NEGATIVE: Productive Cough, Hemoptysis, Wheezing, Shortness of Breath Cardiac: NEGATIVE: Dyspnea on Exertion, Orthopnea, Palpitations, Syncope Gastrointestinal: POSITIVE: Constipation, Abdominal Pain; NEGATIVE: Nausea, Vomiting, Diarrhea Genitourinary: POSITIVE: Flank Pain; NEGATIVE: Dysuria, Frequency, Hematuria Musculoskeletal: NEGATIVE: Swelling, Stiffness, Weakness Neurological: NEGATIVE: Dizziness, Confusion, Headache Psychiatric: NEGATIVE: Anxiety Skin: NEGATIVE: Pain, Pruritus, Rash Endocrine: NEGATIVE: Heat Intolerance, Cold Intolerance Hematologic/Lymph: NEGATIVE: Anemia, Bruising Allergic/Immunologic: NEGATIVE: Itching Objective: Objective Information: T PRBPSpO2 [id number]/5890% Date/Time06/04 9: 12: 12: 12: 12:00 Range(36.2C - 36.2C ) (70 - 83 ) (20 - 20 ) (126 - 167 )/ (58 - 75 ) (90% - 93% ) Pain reported at 06/04 9:59: 8 = Severe Physical Exam by System: Constitutional: Well developed, awake/alert/oriented x3, no distress, alert and cooperative Eyes: PERRL, EOMI, clear sclera ENMT: mucous membranes dry, no apparent injury, no lesions seen Head/Neck: Neck supple, no apparent injury, thyroid without mass or tenderness, No JVD, trachea midline, no bruits Respiratory/Thorax: Patent airways, CTAB, normal breath sounds with good chest expansion, thorax symmetric Cardiovascular: Regular, rate and rhythm, no murmurs, 2+ equal pulses of the extremities, normal S 1and S 2 Gastrointestinal: Distended, soft, non-tender, no rebound tenderness or guarding, no masses palpable, no organomegaly, +BS, no bruits Extremities: normal extremities, no cyanosis edema, contusions or wounds, no clubbing Neurological: alert and oriented x3 Psychological: Appropriate mood and behavior Skin: Warm and dry, no lesions, no rashes Medications: Medications: Continuous Medications No continuous medications are active Scheduled Medications 1. Iohexol (Omnipaque 350-Radiology Contrast): 136.5 mL IntraVenous Push Once 2. Iohexol (Omnipaque 350-Radiology Contrast): 136.5 mL IntraVenous Push Once 3. Iohexol (Omnipaque 350-Radiology Contrast): 136.5 mL IntraVenous Push Once PRN Medications No PRN medications are active Recent Lab Results: Results: I have reviewed these laboratory results: Influenza A/B,Covid 2019 PCR,Symptomatic 04-Jun-2021 12:18:00 ResultValue Fluid Source Nasal, Nasopharyngeal Influenza A PCR NOT DETECTED Reference Range: Not Detected Respiratory virus testing is performed routinely by PCR for Influenza A/B and RSV. Not Detected results do not preclude Influenza A/B or RSV infections since the adequacy of sample collectio (more content not included)...[facility] 06-04-2021 Hospital Discharge instructions* Activity:activity as tolerated. * Catheter Care:Type: indwellingCatheter Care: soap and waterDate Last Changed: inserted on 06/04/2021 in the ED * Additional Orders:Additional Instructions: Monitor the color of your urine. If it changes to cloudyor you notice different consistency or spasms around the bladder notify your urologist or your primary care physician immediately. Notify doctor if you develop fever or chills temperature greater than 100.4. Your urinalysis on admission is clean without evidence of infection. You do not warrant antibiotics at time of discharge. You do need to follow with your urologist and continue your finasteride. * Call Provider If:Any new concerning symptoms. * Patient Instructions:- CALL 911 IF YOU HAVE ANY OF THE SIGNS AND SYMPTOMS OF HEART FAILURE: 1. Chest pain 2. Significant Shortness of breath 3. Fainting. - Notify your physician immediately if you have shortness of breath; weight gain of 3 lbs. or more; fatigue and loss of energy; swelling of lower extremities or abdomen; dizziness or fainting; change of appetite; and frequent coughing. - Patientreceived Living With Heart Failure book. - Daily weight on the same scale, same time after voiding and before eating. - Maintain daily weight log. * Activity (Heart Failure):- Balance activity with rest, gradually increase your activity as tolerated. - Exercise as prescribed by your physician. * Patient Instructions:- CALL 911 OR GO DIRECTLY TO THE EMERGENCY ROOM IF YOU HAVE ANY OF THE SIGNS AND SYMPTOMS OF STROKE: 1. Sudden weakness or numbness of the face, arm or leg, especially on one side of the body. 2. Sudden difficulty speaking or understanding. 3. Sudden trouble seeing in one or both eyes. 4. Sudden trouble walking, dizziness, loss of balance or coordination. 5. Sudden severe headache with no known cause. 6. Loss of consciousness or decreased consciousness, fainting, or seizures. - Know the Risk Factors for Stroke: high blood pressure, high cholesterol, diabetes, smoking, physical inactivity, overweight, previous stroke or TIA, heart disease, atrial fibrillation. - Always carry a medication list with you and take it to ALL Healthcare Provider visits. - You may be contacted by a Hospital Civil Defense Director after discharge to evaluate your progress at home and to discuss [facility]rex[facility]. * Hospital Specific Instructions - [facility]:- For questions/problems/concerns call the Discharge Physician at [phone] and have them paged. * Follow Up Appointment 1:Physician/Dept/Service: Maria Hester for Referral: hospital follow upCall to Schedule in: 1 weekScheduled Date/Time: 14-Jun-2021 16:20[facility] [address] [facility] Number: [phone] * Follow Up Appointment 2:Physician/Dept/Service: Dr Schwarz for Referral: hospital follow upLocation: [address] [address] [place]: [phone]: The office will be calling you with a date and time. If you don't hear from them by June 07, please give their office a call. Thank you [facility]12-02-2021 NoteSend Summary: Discharge Summary Providers: Provider RoleProvider Name Kathy James Megan PrimaryBoyd, Christopher Note Recipients: Maria Malik MD Discharge: Summary: Admission Date: .30-May-2021 10:06:00 Discharge Date: 31-May-2021 Attending Physician at Discharge: Kathy Duffy Admission Reason: Acute cholecystitis Final Discharge Diagnoses: Acute cholecystitis Procedures: Date: 30-May-2021 12:27:00 Procedure Name: Laparoscopic subtotal cholecystectomy Condition at Discharge: Satisfactory Disposition at Discharge: .Home Hospital Course: Mr. Weinstein is a 76yo male who had previous episode of acute cholecystitis two months ago. Given delayed nature of presentation and severe inflammation on imaging, he was treated with antibiotics. He now presents for interval cholecystectomy. He underwent laparoscopic cholecystectomy on 05/30/21. He had significant inflammation still and therefore subtotal cholecystectomy was performed from a top-down approach and a drain left in the RUQ. He tolerated the procedure well. He was kept for overnight observation due to history of sleep apnea. He had no acute issues overnight. He received drain care teaching. He was appropriate for discharge home the morning of 05/31/21. Discharge Information: and Continuing Care: Lab Results - Pending: Surgical Pathology Drawn at 30-May-2021 13:16:00 Radiology Results - Pending: None Discharge Instructions: Keep incisions clean and dry. Leave steri strips in place until they fall off on their own. You may shower, but no submersion in water (ie no bathtub or swimming pool) until incisions have healed. Avoid lifting >10lbs for the next 4 weeks. Empty and record drain daily and more often if over half full. Record volume and color of output and bring this record with you to your follow up appointment. Notify physician if worsening abdominal pain, fevers, redness or drainage at your incisions, or inability to tolerate oral intake. Follow Up Appointments: 06/14/[address] Duffy Discharge Medications: Home Medication amlodipine 10 mg tablet - 1 tab(s) orally once a day atorvastatin 40 mg tablet - 1 tab(s) orally once a day duloxetine 30 mg capsule,delayed release - 1 cap(s) orally 2 times a day finasteride 5 mg tablet - 1 tab(s) orally once a day fluticasone propionate 50 mcg/actuation nasal spray,suspension - 2 spray(s) in each nostril once a day tamsulosin 0.4 mg capsule - 1 cap(s) orally once a day PRN Medication oxycodone-acetaminophen 5 mg-325 mg oral tablet - 1 tab(s) orally every 4 hours, As Needed for post-operative pain for 2 days. DNR Status: Code StatusCode Status order at time of discharge: Full Code Electronic Signatures: Kathy Duffy) (Signed 31-May-2021 07:03) Authored: Send Summary, Summary Content, Ongoing Care, DNR Status, Note Completion Last Updated: 31-May-2021 07:03 by Kathy Duffy)[facility] 05-30-2021 NotePost Operative Note: PreOp Diagnosis: Acute cholecystitis Post-Procedure Diagnosis: Acute cholecystitis Procedure: Laparoscopic subtotal cholecystectomy Surgeon: Kathy Duffy Resident/Fellow/Other Dentist: Anesthesia: General Estimated Blood Loss (mL): 20cc Specimen: yes. Gallbladder Complications: None Findings: Flimsy omental adhesions to the gallbladder as well as dense inflammatory adhesions in the infundibulum and near critical structures necessitating top down approach and subtotal cholecystectomy. Patient Returned To/Condition: PACU / Stable Drains and/or Catheters: 10 Fr JOSE ELIAS drain in RUQ Operative Report Dictated: Dictation: not applicable - note contains Operative Report Operative Report: Indication: Patient is a 76-year-old male with previous episode of acute cholecystitis. He had delayed presentation and significant inflammation. Therefore, he was treated with antibiotics and presents today for interval cholecystectomy. Risks and benefits of cholecystectomy were discussed and the patient was agreeable to proceed with surgery. Procedure: The patient was brought to the operating room and placed in supine position. General anesthesia was induced. The patient's abdomen was prepped and draped. Through a vertical umbilical incision, a 12mm port was placed using Susanna technique. Three 5mm ports were placed in the upper abdomen under direct visualization. The patient was placed in reverse Trendelenburg position and tilted slightly towards the left. The gallbladder had a thick wall and flimsy omental adhesions. The gallbladder was grasped by the fundus and retracted cephalad. Adhesions to the infundibulum were taken down with combination of blunt dissection and electrocautery. He had dense inflammatory adhesions around the infundibulum. The peritoneum was opened to separate the gallbladder neck from the liver. Given the dense inflammation, dissection was carried out very high on the gallbladder. The infundibulum was dissected, but given the extent of inflammation was difficult to obtain a true critical view. Therefore, decision was made to proceed in a top down approach. The gallbladder was from the liver starting at the fundus using hook cautery. This was taken down to the previously dissected infundibulum. In this process, the wall of the gallbladder was entered in the mid portion of the galbladder. The back wall was left in this area and mucosa cauterized. The cystic artery was never fully visualized, although suspect that a small branch that was cauterized was a remnant of an obliterated artery. Once the gallbladder was only attached by the cystic duct, two Endoloops were used to ligate the cystic duct. These were kept high and more on the lower infundibulum than the true cystic duct. The infundibulum was divided with scissors. The gallbladder was placed in an Endocatch bag and removed via the umbilical port. Hemostasis was confirmed. The gallbladder fossa was irrigated until irrigant returned clear. The camera was changed to a 5mm scope. A 10 Fr JOSE ELIAS drain was placed in the gallbladder fossa and brought out through the lateral port site. This was secured with a 3-0 Nylon. The 5mm ports were removed. The fascial defect at the umbilicus was closed with 0 Vicryl. Skin incisions were closed with 4-0 Vicryl and steri strips. The patient tolerated the procedure well, was extubated and transferred to PACU in stable condition. Electronic Signatures: Katyh Duffy) (Signed 30-May-2021 15:29) Authored: Post Operative Note, Note Completion Last Updated: 30-May-2021 15:29 by Kathy Duffy)[facility] 05-30-2021 NoteHistory of Present Illness: History Present Illness: Reason for surgery: Acute cholecystitis HPI: Mr. Weinstein is a 75-year-old male who had an episode of acute cholecystitis. I evaluated him as an inpatient on 03/20/2021. He had a delayed presentation and significant gallbladder inflammation on imaging. He was therefore treated with antibiotics. He did have a bilirubin of 1.5 on initial presentation, with hydration, at this trended to 1.3 and then 1.1. He had no biliary ductal dilation on ultrasound, CBD measured 4 mm. His symptoms resolved and he was ultimately discharged home. He has since been doing well without return of any pain. He is following a low fat diet. He has no previous abdominal surgery. He does have a history of CABG in 2010. He followed with Dr. Villaseñor who has since moved to [place] but has not established care with his new Bicycle Rental Clerk yet. He denies SOB, CP, or peripheral edema. He can walk a flight of stairs without getting SOB. Since time of discharge from the hospital, he has also been treated for right lower lobe pneumonia and this has also resolved. Allergies: Allergies: penicillin: Unknown Home Medication Review: Home Medications Reviewed: yes Impression/Procedure: Impression and Planned Procedure: Mr. Weinstein is a 75-year-old male who had a previous episode of acute cholecystitis treated with antibiotics given delayed presentation. He also did not want cholecystectomy at that time. After having some time to think about this and discuss with his primary care physician, he is now interested in having an interval cholecystectomy. Risks, benefits and alternatives of laparoscopic cholecystectomy were discussed with the patient and his . This included risk of bleeding, infection, viscous injury, conversion to an open procedure, bile leakage or bile duct injury, post-cholecystectomy diarrhea, possible non-resolution or recurrence of symptoms, and possible need for subsequent endoscopic or surgical interventions. The patient was agreeable to proceed with surgery. We will wait until late April to give this a full 8 weeks for all of his inflammation to soften. I would also like him to see his Bicycle Rental Clerk for preoperative evaluation and optimization. We will tentatively plan for laparoscopic cholecystectomy 05/30/21. He will require post-operative overnight observation given his history of sleep apnea. ERAS (Enhanced Recovery After Surgery): ERAS Patient: no Physical Exam by System: Constitutional: No acute distress, conversant and pleasant Eyes: PERRL ENMT: mucous membranes moist Head/Neck: Grossly normal. Trachea midline. Respiratory/Thorax: No labored breathing, good chest expansion, thorax symmetric Cardiovascular: NSR Gastrointestinal: soft, non-tender, non-distended, no surgical scars, his umbilicus is relatively flat but I do not feel a hernia, he has a small scar from prior drain site from CABG in upper abdomen, he also has a small scar in the upper abdomen to the left of midline but this was from a superficial trauma/laceration. Extremities: normal extremities, no edema Neurological: alert and oriented x3 Lymphatic: No significant lymphadenopathy Psychological: Appropriate mood and behavior Skin: Warm and dry Consent: COVID-19 Consent: COVID-19 Risk ConsentSurgeon has reviewed spann risks related to the risk of masoud COVID-19 and if they contract COVID-19 what the risks are. Electronic Signatures: Kathy Duffy) (Signed 30-May-2021 06:42) Authored: History of Present Illness, Allergies, Home Medication Review, Impression/Procedure, ERAS, Physical Exam, Consent, Note Completion Last Updated: 30-May-2021 06:42 by Kathy Duffy)[facility] 03-26-2021 History of Present illness Narrative* S/P hospitalization for cholecystitis last week, has an appointment with surgery * feeling better, finished Abx yesterday, no N/V no abdominal pain, +cough/sputum, no SOB, no F/C/S, appetite better * watching diet better, lost 7 pounds in the past few months * No headache, chest pain, shortness of breath, dizziness, lightheadedness, or edema [facility] Work Phone: 1(368) 555-872709-23-2021 NoteSend Summary: Discharge Summary Providers: Provider RoleProvider Name AmritlanceMaria Pierre AttendingZulfiqar, Fahad B Discharge Summary: Admission Date: .19-Mar-2021 14:41:00 Discharge Date: 22-Mar-2021 Admission Reason: Acute cholecystitis(1) Final Discharge Diagnoses: Acute cholecystitis Procedures: none Vital Signs: T PRBPSpO2 [id number]/6792% Date/Time03/22 7: 7: 7: 7: 7:00 Range(36.6C - 36.6C ) (72 - 75 ) (18 - 18 ) (111 - 130 )/ (56 - 67 ) (90% - 92% ) As of 21-Mar-2021 23:00:00, patient is on 2 L/min of oxygen via nasal cannula. Date: Weight/Scale Type:Height: 20-Mar-2021 00:4589.1 kg / wgx240.5 cm Physical Exam: Head/Neck: Neck supple, no apparent injury, thyroid without mass or tenderness, No JVD, trachea midline, no bruits Respiratory/Thorax: Patent airways, CTAB, normal breath sounds with good chest expansion, thorax symmetric Cardiovascular: Regular, rate and rhythm, no murmurs, 2+ equal pulses of the extremities, normal S 1and S 2 Gastrointestinal: Nondistended, soft, mildly tender, no rebound tenderness or guarding, no masses palpable, no organomegaly, +BS, no bruits Musculoskeletal: ROM intact, no joint swelling, normal strength Extremities: normal extremities, no cyanosis edema, contusions or wounds, no clubbing Neurological: alert and oriented x3, intact senses, motor, response and reflexes, normal strength Lymphatic: No significant lymphadenopathy Hospital Course: 74-year-old male with a past medical history of hypertension, constipation, BPH, hyperlipidemia, GERD and seasonal allergies who presented to the ER with right-sided abdominal pain 10/10 and diarrhea. He was admitted with a working diagnosis of acute cholecystitis, he was started IV ciprofloxacin and Flagyl, kept n.p.o., was given IV fluid hydration, general surgery was consulted, lactic acid was trended, his lactic acidosis resolved, leukocytosis also resolved, pain is significantly better he has been on low-fat solid food since yesterday and has been tolerating it well without any significant pain, fever, chills or nausea. He also reports to me that his stools are solid now. He will be discharged home on oral Cipro and Flagyl for 7 more days. I will advise him to return to the ER if pain worsens. He will follow up with primary care and Dr. Avalos as an outpatient. Will need elective cholecystectomy. Discharge Information and Continuing Care: Lab Results - Pending: None Radiology Results - Pending: None Discharge Instructions: Activity: activity as tolerated. May shower.. Nutrition/Diet: low fat Additional Orders: Additional Instructions: return to the er if pain worsens Follow Up Appointments: Follow-Up Appointment 01: Physician/Dept/Service: AAN Call to Schedule in: 1 week Follow-Up Appointment 02: Physician/Dept/Service: Dr Duffy Call to Schedule in: 2 weeks Discharge Medications: Home Medication amlodipine 10 mg tablet - 1 tab(s) orally once a day atorvastatin 40 mg tablet - 1 tab(s) orally once a day duloxetine 30 mg capsule,delayed release - 1 cap(s) orally 2 times a day finasteride 5 mg tablet - 1 tab(s) orally once a day fluticasone propionate 50 mcg/actuation nasal spray,suspension - 2 spray(s) in each nostril once a day metoprolol tartrate 25 mg tablet - 1 tab(s) orally 2 times a day tamsulosin 0.4 mg capsule - 1 cap(s) orally once a day triamterene 37.5 mg-hydrochlorothiazide 25 mg capsule - 1 cap(s) orally once a day ciprofloxacin 500 mg oral tablet - 1 tab(s) orally 2 times a day Flagyl 500 mg oral tablet - 1 tab(s) orally 3 times a day PRN Medication Electronic Signatures for Addendum Section: Harris Ortiz () (Signed Addendum 24-Mar-2021 10:48) Patient did not require oxygen overnight or this morning. He will be discharged home today. I talked with surgery on the patient's 's behalf and surgery said follow-up only if he wants surgery but not for 8 weeks. I have relayed this to the patient and the at the bedside. We will start with Dr. Malik at this time for follow-up. Electronic Signatures: Ryan Renee) (Signed 22-Mar-2021 08:35) Authored: Send Summary, Summary Content, Ongoing Care, Note Completion Last Updated: 24-Mar-2021 10:48 by Harris Ortiz () References: 1. Data Referenced From Consult-Surgery 20-Mar-2021 11:[address] [place] [address]-21-2021 History of Present illness NarrativeMrZoran Weinstein is a 75-year-old male who had an episode of acute cholecystitis. I evaluated him as an inpatient on 03/20/2021. He had a delayed presentation and significant gallbladder inflammation on imaging. He was therefore treated with antibiotics. He did have a bilirubin of 1.5 on initial presentation, with hydration, at this trended to 1.3 and then 1.1. He had no biliary ductal dilation on ultrasound, CBD measured 4 mm. His symptoms resolved and he was ultimately discharged home. He has since been doing well without return of any pain. He is following a low fat diet. He has no previous abdominal surgery. He does have a history of CABG in 2010. He followed with Dr. Villaseñor who has since moved to [place] but has not established care with his new Bicycle Rental Clerk yet. He denies SOB, CP, or peripheral edema. He can walk a flight of stairs without getting SOB. Since time of discharge from the hospital, he has also been treated for right lower lobe pneumonia and this has also resolved.-[facility] Work Phone: [phone]) 650-879509-21-2021 NoteHistory of Present Illness: HPI: ASHLEY WEINSTEIN is a 75 year old Male presented with worsening right-sided abdominal pain 10/10 sharp for 1.5 to 2 weeks accompanied by constipation which is relieved. Patient denies any nausea or vomiting or diarrhea to me. No bleeding from anywhere. No appetite change or weight loss. No fever or chills. Patient has acute cholecystitis and started on IV antibiotics. No chest pain or shortness of breath or palpitations or lightheadedness or leg swelling. He told me that he has a history of open heart surgery and is on aspirin according to him when we spoke. He denies any history of stroke to me. Patient has leukocytosis initial lactate level was high which improved after fluids. Surgery consulted and patient is n.p.o. until further recommendations. No back pain or flank pain or hematuria or dysuria. No joint pains or skin rash. No sweating or nervousness or tremors or polydipsia or polyuria. Patient denies any other symptoms to me at this time. Past medical history Hypertension Constipation BPH Hyperlipidemia GERD Seasonal allergies Social history Patient denies any smoking or alcohol or drugs to me Family history unremarkable per the patient Review of systems All 12 point review system negative except as mentioned in HPI Comorbidities: Comorbidites: Comorbid Conditionshypertension Social History: Social History: Smoking Statusnever smoker (1) Alcohol Usedenies(1) Drug Usedenies (1) Allergies: penicillin: Unknown Medications Prior to Admission: amlodipine 10 mg tablet: 1 tab(s) orally once a day atorvastatin 40 mg tablet: 1 tab(s) orally once a day duloxetine 30 mg capsule,delayed release: 1 cap(s) orally 2 times a day finasteride 5 mg tablet: 1 tab(s) orally once a day fluticasone propionate 50 mcg/actuation nasal spray,suspension: 2 spray(s) in each nostril once a day metoprolol tartrate 25 mg tablet: 1 tab(s) orally 2 times a day tamsulosin 0.4 mg capsule: 1 cap(s) orally once a day triamterene 37.5 mg-hydrochlorothiazide 25 mg capsule: 1 cap(s) orally once a day. Objective: Objective Information: T PRBPSpO2 [id number]/6894% Date/Time03/20 7: 7: 7: 7: 7:27 Range(36.7C - 37.7C ) (80 - 111 ) (16 - 18 ) (132 - 161 )/ (60 - 89 ) (85% - 98% ) As of 20-Mar-2021 00:50:00, patient is on 2 L/min of oxygen via nasal cannula. Highest temp of 37.7 C was recorded at 03/19 15:54 Pain reported at 03/20 2:00: 0 = None Physical Exam by System: Constitutional: Well developed, awake/alert/oriented x3, no distress, alert and cooperative Eyes: PERRL, EOMI, clear sclera ENMT: mucous membranes moist, no apparent injury, no lesions seen Head/Neck: Neck supple, no apparent injury, thyroid without mass or tenderness, No JVD, trachea midline, no bruits Respiratory/Thorax: Patent airways, CTAB, normal breath sounds with good chest expansion, thorax symmetric Cardiovascular: Regular, rate and rhythm, no murmurs, 2+ equal pulses of the extremities, normal S 1and S 2 Gastrointestinal: Nondistended, soft, tender, no rebound tenderness or guarding, no masses palpable, no organomegaly, +BS, no bruits Musculoskeletal: ROM intact, no joint swelling, normal strength Extremities: normal extremities, no cyanosis edema, contusions or wounds, no clubbing Neurological: alert and oriented x3, intact senses, motor, response and reflexes, normal strength Lymphatic: No significant lymphadenopathy Psychological: Appropriate mood and behavior Skin: Warm and dry, no lesions, no rashes Medications: Medications: Continuous Medications 1. Sodium Chloride 0.9% Infusion: 1000 mL IntraVenous 2. Sodium Chloride 0.9% Infusion: 1000 mL IntraVenous Scheduled Medications 1. Ciprofloxacin 400 mg IVPB/ Premixed Soln 200 mL: 200 mL IntraVenous Piggyback Every 12 Hours 2. Famotidine Injectable: 20 mg IntraVenous Push Every 12 Hours 3. metroNIDAZOLE (FLAGYL) 500 mg IVPB/ Premixed Soln 100 mL: 100 mL IntraVenous Piggyback Every 8 Hours PRN Medications 1. Morphine Injectable: 1 mg IntraVenous Push Every 4 Hours 2. Morphine Injectable: 2 mg IntraVenous Push Every 6 Hours 3. Ondansetron Injectable: 4 mg IntraVenous Push Every 4 Hours 4. Sodium Chloride 0.9% Injectable Flush: 1.5 mL IntraVenous Flush Every 8 Hours and as Needed Recent Lab Results: Results: CBC: 03/20/2021 07:20 \ Hgb / \ 13.1 L / WBC Plt 15.6 H 128 L / Hct \ / 40.5 L \ RBC: 4.55 MCV: 89 CMP: 03/20/2021 07:20 NA+ Cl- BUN / 135 L 101 18 / Glucose 122 H K+ HCO3- Creat \ 4.0 28 1.30 \ \ T Bili / \ 1.3 H / AST x ---- x ALT 23 x ---- x 32 / Alk P \ / 89 \ Calciu (more content not included)...[facility]09-15-2021 History of Present illness Narrative* Tami Shaffer CNP - 03/14/2021 8:00 AM EDT Patient is a 75 year old male here today for his second post op visit for suture removal from a right wrist carpal tunnel release. He is still doing well, has had good relief of his numbness and tingling. Incision looks good, no erythema or edema seen. Sutures removed without difficulty and glue applied by NAOMIE Drummond. He is going to keep wearing the wrist brace for another 3 weeks of so and advance his activity at that point as tolerated. He will follow up as needed. He understands and agrees to proceed. documented in this [id number] History of Present illness Narrative* Ej Braden MD - 03/07/2021 7:53 AM EDT (Incomplete)This note is in progress. Dictation on: 03/07/2021 7:54 AM by: EJ BRADEN [[id number]] documented in this [id number] History of Present illness Narrative* Jeremiah Adame LPN - 02/01/2021 2:30 PM EDT No auth required for 02-27-21 right carpal tunnel release procedure at [facility]. Call ref# [id number] documented in this [id number] History of Present illness Narrative* Ej Braden MD - 01/31/2021 8:38 AM EDT Subjective: Patient ID: Ashley Weinstein is a 75 y.o. male. HPI: Patient is a 75-year-old male with increasing trouble with numbness and tingling aching pain secondary to numbness and tingling in his right hand. This is gone for greater than 3 months she has had arecent EMG nerve conduction study which indicates positive carpal tunnel on the right side. He is here today to discuss permanent solution to the problem with surgery. Review of Systems: Review of Systems Constitutional: Negative for activity change, appetite change, chills, fatigue and fever. HENT: Negative for congestion and trouble swallowing. Respiratory: Negative for chest tightness and shortness of breath. Cardiovascular: Negative for chest pain and palpitations. Gastrointestinal: Negative for constipation and diarrhea. Genitourinary: Negative for difficulty urinating and hematuria. Musculoskeletal: Negative for arthralgias, back pain, gait problem, joint swelling, myalgias, neck pain and neck stiffness. Neurological: Positive for numbness. Negative for light-headedness and headaches. Hematological: Negative for adenopathy. Does not bruise/bleed easily. The patient is a 75-year-old male. I reviewed medications, allergies, and history. I reviewed his previous record and studies reviewed his EMG and nerve conduction. PHYSICAL EXAMINATION General: He is well developed, well nourished, in no acute distress. Alert and oriented x3. Cranialnerves 2 through 12 intact. Gait: Normal. Psychiatric: The patient's mood, affect, and behavior appropriate for age, diagnosis and office visit. Head: Normocephalic. Neck: Supple. Good range of motion. Eyes: Extraocular exam within normal limits. Skin: Warm, clear, and dry without trophic changes noted. Vascular: Pulses 2+ and symmetrical in both upper extremities. Neurologic: The patient has decreased sensation over the median nerve distribution of the right hand. He has a positive Phalen's test and a mildly positive Tinel's. Extremities: He otherwise has a good range of motion of the shoulder, elbow, wrist, and hand. We have gone over his diagnosis is carpal tunnel syndrome. We have gone over management options. He wishes to proceed with surgery and understand the risks, complications, as well as potential benefits. Patient Active Problem List Diagnosis Coronary artery disease involving [place] coronary artery of [place] heart without angina pectoris Bilateral carotid artery disease (HCC) Essential hypertension HLD (hyperlipidemia) Carpal tunnel syndrome of right wrist Objective: Physical Exam Imaging Studies: No results found. Assessment: 1. Carpal tunnel syndrome of right wrist 2. Right wrist pain Plan: 1. Orders Placed This Encounter Procedures Case Request Operating Room: RELEASE CARPAL TUNNEL No follow-ups on file. documented in this [id number] History of Present illness Narrative* Leobardo Malcolm MD - 01/20/2021 8:41 AM EDT Images from the original note were not included. [facility] - Neurology [address] [place] [address] Nerve Conduction & EMG Report Patient: Ashley Weinstein Sex: Male Date of : 1945 Visit Date: 01/20/2021 08:33 Age: 75 Years Examining MD: Leobardo Malcolm MD Referred by: Dr. Malik Temperature: 33.1 Current Height: 5 feet 4 inch Referred for: RUE int numbness for 3 months. No neck pain or DM. PCN. Plan: The study is design to evaluate for radiculopathy, plexopathy, entrapment neuropathy, median or ulnar neuropathy. Indication, risk, side effects, and alternatives were explained. Patient agreedto proceed. Patient was instructed to clean the puncture site with soap and water and put some ice pack for bruising. EMG Summary: The right median motor nerve conduction study showed prolonged distal latency, normal amplitude and increased conduction velocity. The right median sensory nerve conduction study showed prolonged distal latency and decreased amplitude. The right ulnar motor and sensory nerve conduction studies was normal. The right radial sensory nerve conduction study were normal. Needle EMG of the muscles tested showed no abnormal spontaneous activity. Normal motor unit action potentials and recruitment patterns were seen. Impression: This is an abnormal EMG. There is electrodiagnostic evidence of a right median nerve entrapment at the wrist with sensory axonal damage at this time. There is NO electrodiagnostic evidence of right cervical radiculopathy, brachial plexopathy or ulnar neuropathy at this time. Leobardo Malcolm MD Diplomate, ABPN, NBPAS Clinical Neurophysiology, Neurology, Vascular Neurology and Sleep Medicine [facility] [place] [phone] Motor NCS Nerve / Sites Muscle Latency Amplitude Distance Velocity ms mV cm m/s R Median - APB Wrist APB 8.15 4.3 7 Elbow APB 13.23 4.2 23 45.2 R Ulnar - ADM Wrist ADM 2.77 9.0 6.5 B.Elbow ADM 7.02 9.0 23 54.1 A.Elbow ADM 9.10 8.5 11 52.8 Sensory NCS Nerve / Sites Peak Amp Amp.2-3 Distance Velocity d Lat.2 ms V V cm m/s ms R Radial - Snuff Forearm 2.38 24.6 21.6 10 61 R Median, Ulnar - Transcarpal comparison Median Palm 4.21 3.1 4.2 8 23 Ulnar Palm 2.13 3.6 15.7 8 52 2.08 EMG Summary Table Spontaneous Activity Amplitude Duration Recruitment Polyphasia Comment Muscle Ins Act Fib PSW Fasc - - - - - R. Deltoid Normal 0 0 0 Normal Normal Normal Normal Normal R. Triceps brachii Normal 0 0 0 Normal Normal Normal Normal Normal R. Biceps brachii Normal 0 0 0 Normal Normal Normal Normal Normal R. Pronator teres Normal 0 0 0 Normal Normal Normal Normal Normal R. Extensor digitorum communis Normal 0 0 0 Normal Normal Normal Normal Normal R. First dorsal interosseous Normal 0 0 0 Normal Normal Normal Normal Normal R. Abductor pollicis brevis Normal 0 0 0 Normal Normal Normal Normal Normal [facility] Diagnosis Carpal tunnel syndrome, unspecified laterality- [facility] Diagnosis Carpal tunnel syndrome on right- Primary Carpal tunnel syndrome [facility] Diagnosis Carpal tunnel syndrome of right wrist- Primary Right wrist pain Pain in joint, forearm Carpal tunnel syndrome of right wrist- Primary [facility] Diagnosis Surgery follow-up- [facility] Diagnosis [facility] follow-up- Primary [facility] Psychological: Pleasant affectNeurological: Nonfocal; cranial nerves II through XII appear intactGastrointestinal: Soft, nontender, nondistended, positive bowel soundsCardiovascular: Regular rate andrhythm; normal S1-S2 with no murmur; no pitting edema and 2+ pulses bilaterallyRespiratory/Thorax: Clear to auscultation bilaterally no wheezes or rhonchiHead/Neck: Neck supple with no palpable lymphadenopathy, bruits or masses; trachea midline with increased neck circumferenceConstitutional: Awake and alert; oriented x3 with no apparent distress or respiratory distress [facility] Neurological: Alert, oriented g3Uceodkhzxge: No peripheral edemaGenitourinary: santiago in placeGastroi ntestinal: Soft, distended, non-tender, some serosanguinous drainage around JOSE ELIAS, holding suction with serosanguinous output (minimal)Cardiovascular: NSRRespiratory/Thorax: No labored breathing, on room airEyes: No scleral icterusSkin: No jaundiceConstitutional: No acute distress, converses pleasantlyPsychological: Normal affect [facility]* Diagnosis Coronary artery disease involving [place] coronary artery of [place] heart without angina pectoris- Primary Bilateral carotid artery stenosis Occlusion and stenosis of carotid artery without mention of cerebral infarction [facility] Coronary artery disease involving [place] coronary artery of [place] heart without angina pectoris- Primary Bilateral carotid artery stenosis Occlusion and stenosis of carotid artery without mention of cerebral infarction [facility] Diagnosis Coronary artery disease involving [place] coronary artery of [place] heart without angina pectoris- Primary [facility] Diagnosis Obstructive sleep apnea syndrome- Primary Obstructive sleep apnea (adult) (pediatric) Other polyneuropathy Arteriosclerosis of coronary artery Bilateral carotid artery disease, unspecified type (CMS/HCC) Essential hypertension Unspecified essential hypertension History of vascular surgery Other postprocedural status Gastroesophageal reflux disease without esophagitis Esophageal reflux Benign prostatic hyperplasia without lower urinary tract symptoms Mixed hyperlipidemia Nasal congestion Other diseases of nasal cavity and sinuses Mild vascular dementia without behavioral disturbance, psychotic disturbance, mood disturbance, or anxiety (CMS/HCC) documented in this encounter [facility] Work Phone: Evaluation note* Diagnosis Onset Date Resolution Status Atherosclerosis of coronary artery of [place] heart without angina pectoris chronic Hyperlipidemia chronic Hypertension [facility] Work Phone: Evaluation note* Diagnosis Onset Date Resolution Status Atherosclerosis of coronary artery of [place] heart without angina pectoris chronic Hyperlipidemia chronic Hypertension chronic Closed fracture of left proximal humerus acute Closed fracture of left proximal humerus acute Closed fracture of left proximal humerus acute [facility] Work Phone: Evaluation note* Diagnosis Obstructive sleep apnea syndrome Obstructive sleep apnea (adult) (pediatric) Other polyneuropathy Arteriosclerosis of coronary artery Bilateral carotid artery disease, unspecified type (CMS/HCC) Essential hypertension Unspecified essential hypertension History of vascular surgery Other postprocedural status Gastroesophageal reflux disease without esophagitis Esophageal reflux Benign prostatic hyperplasia without lower urinary tract symptoms Mixed hyperlipidemia Nasal congestion Other diseases of nasal cavity and sinuses Mild vascular dementia without behavioral disturbance, psychotic disturbance, mood disturbance, or anxiety (CMS/HCC) documented in this encounter [facility] Work Phone: Evaluation note* Diagnosis Mild vascular dementia without behavioral disturbance, psychotic disturbance, mood disturbance, or anxiety (CMS/HCC)- Primary Arteriosclerosis of coronary artery Bilateral carotid artery disease, unspecified type (CMS/HCC) Essential hypertension Unspecified essential hypertension Mixed hyperlipidemia Gastroesophageal reflux disease without esophagitis Esophageal reflux Obstructive sleep apnea syndrome Obstructive sleep apnea (adult) (pediatric) Hypersomnolence Hypersomnia, unspecified Other polyneuropathy documented in this encounter [facility] Work Phone: Evaluation note* Diagnosis Onset Date Resolution Status Closed fracture of left proximal humerus acute Closed fracture of left proximal humerus [facility] Work Phone: Evaluation note* Diagnosis Routine general medical examination at health care facility- Primary Routine general medical examination at a health care facility Mild vascular dementia without behavioral disturbance, psychotic disturbance, mood disturbance, or anxiety (Multi) Arteriosclerosis of coronary artery Bilateral carotid artery disease, unspecified type (CMS-HCC) Essential hypertension Unspecified essential hypertension Mixed hyperlipidemia Gastroesophageal reflux disease without esophagitis Esophageal reflux Obstructive sleep apnea syndrome Obstructive sleep apnea (adult) (pediatric) Hypersomnolence Hypersomnia, unspecified Other polyneuropathy Screening for prostate cancer Special screening for malignant neoplasm of prostate B12 deficiency Hyperglycemia Other abnormal glucose documented in this encounter [facility] Work Phone: Evaluation note* Diagnosis Obstructive sleep apnea syndrome- Primary Obstructive sleep apnea (adult) (pediatric) Other polyneuropathy Arteriosclerosis of coronary artery Bilateral carotid artery disease, unspecified type (CMS-HCC) Essential hypertension Unspecified essential hypertension History of vascular surgery Other postprocedural status Gastroesophageal reflux disease without esophagitis Esophageal reflux Benign prostatic hyperplasia without lower urinary tract symptoms Mixed hyperlipidemia Nasal congestion Other diseases of nasal cavity and sinuses Mild vascular dementia without behavioral disturbance, psychotic disturbance, mood disturbance, or anxiety Obstructive sleep apnea syndrome Obstructive sleep apnea (adult) (pediatric) Other polyneuropathy Arteriosclerosis of coronary artery Bilateral carotid artery disease, unspecified type ([facility]-HCC) Essential hypertension Unspecified essential hypertension History of vascular surgery Other postprocedural status Gastroesophageal reflux disease without esophagitis Esophageal reflux Benign prostatic hyperplasia without lower urinary tract symptoms Mixed hyperlipidemia Nasal congestion Other diseases of nasal cavity and sinuses Mild vascular dementia without behavioral disturbance, psychotic disturbance, mood disturbance, or anxiety Mild vascular dementia without behavioral disturbance, psychotic disturbance, mood disturbance, or anxiety- Primary Arteriosclerosis of coronary artery Bilateral carotid artery disease, unspecified type (CMS-HCC) Essential hypertension Unspecified essential hypertension Mixed hyperlipidemia Gastroesophageal reflux disease without esophagitis Esophageal reflux Obstructive sleep apnea syndrome Obstructive sleep apnea (adult) (pediatric) Hypersomnolence Hypersomnia, unspecified Other polyneuropathy Routine general medical examination at health care facility- Primary Routine general medical examination at a health care facility Mild vascular dementia without behavioral disturbance, psychotic disturbance, mood disturbance, or anxiety Arteriosclerosis of coronary artery Bilateral carotid artery disease, unspecified type ([facility]-HCC) Essential hypertension Unspecified essential hypertension Mixed hyperlipidemia Gastroesophageal reflux disease without esophagitis Esophageal reflux Obstructive sleep apnea syndrome Obstructive sleep apnea (adult) (pediatric) Hypersomnolence Hypersomnia, unspecified Other polyneuropathy Screening for prostate cancer Special screening for malignant neoplasm of prostate B12 deficiency Hyperglycemia Other abnormal glucose Essential hypertension- Primary Unspecified essential hypertension Mild vascular dementia without behavioral disturbance, psychotic disturbance, mood disturbance, or anxiety Arteriosclerosis of coronary artery Bilateral carotid artery disease, unspecified type (CMS-HCC) Mixed hyperlipidemia Gastroesophageal reflux disease without esophagitis Esophageal reflux Obstructive sleep apnea syndrome Obstructive sleep apnea (adult) (pediatric) Hypersomnolence Hypersomnia, unspecified Other polyneuropathy Routine general medical examination at health care facility Routine general medical examination at a health care facility Screening for prostate cancer Special screening for malignant neoplasm of prostate B12 deficiency Benign prostatic hyperplasia without lower urinary tract symptoms documented in this encounter [facility] Work Phone: Evaluation note* Diagnosis Ymypti-er-ynugabmkh syndrome (HCC)- Primary Unspecified cerebral artery occlusion with cerebral infarction CATIE (obstructive sleep apnea) [G47.33] Obstructive sleep apnea (adult) (pediatric) MCI (mild cognitive impairment) [G31.84] Mild cognitive impairment, so stated [facility] Diagnosis Arterial ischemic stroke, MCA (middle cerebral artery), right, acute (HCC)- Primary Unspecified cerebral artery occlusion with cerebral infarction Hyperlipidemia, unspecified hyperlipidemia type Bilateral carotid artery stenosis Occlusion and stenosis of carotid artery without mention of cerebral infarction 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 [facility] (current) use of aspirin [facility] Diagnosis Obstructive sleep apnea syndrome- Primary Obstructive sleep apnea (adult) (pediatric) Other polyneuropathy Arteriosclerosis of coronary artery Bilateral carotid artery disease, unspecified type Essential hypertension Unspecified essential hypertension History of vascular surgery Other postprocedural status Gastroesophageal reflux disease without esophagitis Esophageal reflux Benign prostatic hyperplasia without lower urinary tract symptoms Mixed hyperlipidemia Nasal congestion Other diseases of nasal cavity and sinuses Mild vascular dementia without behavioral disturbance, psychotic disturbance, mood disturbance, or anxiety Obstructive sleep apnea syndrome Obstructive sleep apnea (adult) (pediatric) Other polyneuropathy Arteriosclerosis of coronary artery Bilateral carotid artery disease, unspecified type Essential hypertension Unspecified essential hypertension History of vascular surgery Other postprocedural status Gastroesophageal reflux disease without esophagitis Esophageal reflux Benign prostatic hyperplasia without lower urinary tract symptoms Mixed hyperlipidemia Nasal congestion Other diseases of nasal cavity and sinuses Mild vascular dementia without behavioral disturbance, psychotic disturbance, mood disturbance, or anxiety Mild vascular dementia without behavioral disturbance, psychotic disturbance, mood disturbance, or anxiety- Primary Arteriosclerosis of coronary artery Bilateral carotid artery disease, unspecified type Essential hypertension Unspecified essential hypertension Mixed hyperlipidemia Gastroesophageal reflux disease without esophagitis Esophageal reflux Obstructive sleep apnea syndrome Obstructive sleep apnea (adult) (pediatric) Hypersomnolence Hypersomnia, unspecified Other polyneuropathy Routine general medical examination at health care facility- Primary Routine general medical examination at a health care facility Mild vascular dementia without behavioral disturbance, psychotic disturbance, mood disturbance, or anxiety Arteriosclerosis of coronary artery Bilateral carotid artery disease, unspecified type Essential hypertension Unspecified essential hypertension Mixed hyperlipidemia Gastroesophageal reflux disease without esophagitis Esophageal reflux Obstructive sleep apnea syndrome Obstructive sleep apnea (adult) (pediatric) Hypersomnolence Hypersomnia, unspecified Other polyneuropathy Screening for prostate cancer Special screening for malignant neoplasm of prostate B12 deficiency Hyperglycemia Other abnormal glucose Essential hypertension- Primary Unspecified essential hypertension Mild vascular dementia without behavioral disturbance, psychotic disturbance, mood disturbance, or anxiety Arteriosclerosis of coronary artery Bilateral carotid artery disease, unspecified type Mixed hyperlipidemia Gastroesophageal reflux disease without esophagitis Esophageal reflux Obstructive sleep apnea syndrome Obstructive sleep apnea (adult) (pediatric) Hypersomnolence Hypersomnia, unspecified Other polyneuropathy Routine general medical examination at health care facility Routine general medical examination at a health care facility Screening for prostate cancer Special screening for malignant neoplasm of prostate B12 deficiency Benign prostatic hyperplasia without lower urinary tract symptoms Routine general medical examination at health care facility- Primary Routine general medical examination at a health care facility Mild vascular dementia without behavioral disturbance, psychotic disturbance, mood disturbance, or anxiety Arteriosclerosis of coronary artery Bilateral carotid artery disease, unspecified type Essential hypertension Unspecified essential hypertension Mixed hyperlipidemia Gastroesophageal reflux disease without esophagitis Esophageal reflux Obstructive sleep apnea syndrome Obstructive sleep apnea (adult) (pediatric) Hypersomnolence Hypersomnia, unspecified Other polyneuropathy B12 deficiency Benign prostatic hyperplasia without lower urinary tract symptoms 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 (Multi) Screening for prostate cancer Special screening for malignant neoplasm of prostate Nasal congestion Other diseases of nasal cavity and sinuses documented in this encounter [facility] Work Phone: History of Present illness Narrative* No headache, chest pain, shortness of breath, dizziness, lightheadedness, or edema * Taking PPI daily without breakthrough symptoms. Reviewed dietary, caffeine, tobacco, alcohol, and NSAID use. No dyspepsia, dysphagia, reflux, melena, or abdominal pain. Does not use PPI daily, watching diet * Right hand N/T at night, no issues in feet (controlled with medicine) * RN doing OK, no weakness * HBP around 130/80 * some issues sleeping at night, has been using OTC meds without much help, some naps * emotionally +/-, some blue at times * Patient has been using their CPAP nightly and is experiencing restful sleep, no morning headaches, no witnessed snoring, and notices a difference if they do not use the device. [facility] Work Phone: History of Present illness NarrativeMr. Weinstein is a 76-year-old male seen in postoperative follow-up from a laparoscopic subtotal cholecystectomy for acute cholecystitis. He had dense inflammatory adhesions in the infundibulum at time of surgery necessitating a top-down approach and subtotal cholecystectomy. He had very minimal gallbladder left, although I did leave a small portion of the back wall which I cauterized. I left a 10 [place] JOSE ELIAS drain in the right upper quadrant. This has remained light serosanguineous, about 5cc daily.He had a postoperative readmission for urinary retention, treated with a Santiago catheter. He reportshaving this after 2 previous surgeries as well. He gets the catheter out on 06/18/2021. Overall, heis doing well. He denies any fever, sweats or chills. He denies any significant abdominal pain. He is tolerating a regular diet. He states that he had some chronic abdominal discomfort prior to surgery that is now resolved.-[facility] Work Phone: History of Present illness Narrative* No headache, chest pain, shortness of breath, dizziness, lightheadedness, or edema * Had abnormal stress testing done this past winter, seen cardiology and had carotid US done, electedmedical management * Had TURP with Gaurav this past June and had F/U, urinating well * Taking PPI daily without breakthrough symptoms. Reviewed dietary, caffeine, tobacco, alcohol, and NSAID use. No dyspepsia, dysphagia, reflux, melena, or abdominal pain. Having some gas and bloating at times * no change in exercise tolerance * having RN/congestion, not using medicine any more * neuropathy some better * gets tired easily [facility] Work Phone: History of Present illness Narrative* The patient is being seen for the subsequent annual wellness visit. * Past Medical, Surgical and Family History: reviewed and updated in chart. * Medications and Supplements: Review of all medications by a prescribing practitioner or clinical pharmacist (such as prescriptions, OTCs, herbal therapies and supplements) documented in the medical record. * No, the patient is not using opioids. * Patient Self Assessment of Health Status: good. * Tobacco use: Non-User * Alcohol use: Non-User * Illicit drug use: Non-User * Current diet: well balanced diet. * Exercise Frequency: infrequently. * Depression/Suicide Screening: . * During the past 2 weeks, the patient has not felt down, depressed or hopeless. * During the past 2 weeks, the patient has not felt little interest or pleasure in doing things. * Hearing Impairment: none. * Cognitive Impairment: No cognitive impairment observed. * Bathing: performs independently. * Dressing: performs independently. * Walking: performs independently. * Managing Finances: performs independently. * Shopping: performs independently. * Managing Medications: performs independently. * Housework / Basic Home Maintenance: performs independently. * Falls Risk Screening:. ASHLEY has not fallen in the last 6 months. * Home safety risk factors: none. * Advance directives:. Advanced Care Planning discussed and documented advance care plan or surrogatedecision maker documented in the medical record. Patient has living will. Patient has healthcare POA. * Patient's End of Life Decisions: End of life decisions were reviewed with the patient. I agree to follow the patient's decisions. * No headache, chest pain, shortness of breath, dizziness, lightheadedness, or edema * Taking PPI daily without breakthrough symptoms. Reviewed dietary, caffeine, tobacco, alcohol, and NSAID use. No dyspepsia, dysphagia, reflux, melena, or abdominal pain. * N/T in feet doing OK, using B12 suppliments * Rhinitis doing OK * seen cardiology in February * using compression socks * has some dreams at night * some forgetfulness, some more emotional at times/easily agitated at times [facility] Work Phone: Hospital Discharge instructions* Activity:activity as tolerated. May shower. * Additional Orders:Additional Instructions: return to the er if pain worsens * Follow Up Appointment 1:Physician/Dept/Service: Dr. Hester for Referral: Hospital Follow-upCallto Schedule in: 1 weekScheduled Date/Time: 02-Apr-2021 11:00Location: [address] / [place] Number: [phone] * Follow Up Appointment 2:Physician/Dept/Service: Dr Duffy only if neededReason for Referral: Hospital Follow-upLocation: [address] / [place]Phone Number: [phone]: Please call and schedule an appointment if Issues arise.. [facility] Consultation (Routine) - Authorized Specialty Diagnoses / Procedures Referred By Contac t Referred To Contact Primary Care Diagnoses Obstructive sleep apnea syndrome Other polyneuropathy Arteriosclerosis of coronary artery Bilateral carotid artery disease, unspecified type (CMS/HCC) Essential hypertension History of vascular surgery Gastroesophageal reflux disease without esophagitis Benign prostatic hyperplasia without lower urinary tract symptoms Mixed hyperlipidemia Nasal congestion Mild vascular dementia without behavioral disturbance, psychotic disturbance, mood disturbance, or anxiety (CMS/HCC) Procedures Follow Up In Primary Care Maria Malik MD [address] [place], [place] [id number] Referral ID Status Reason Start Date Expiration Date V isits Requested Visits Authorized [id number] Authorized 11/29/2022 05/28/2023 1 1 [facility] Work Phone: reason for referral (narrative)* Consultation (Routine) - Authorized Specialty Diagnoses / Procedures Referred By Contac t Referred To Contact Primary Care Procedures Follow Up In Primary Care - Established Maria Malik MD [address] [place], [place] [id number] Referral ID Status Reason Start Date Expiration Date V isits Requested Visits Authorized [id number] Authorized 03/21/2023 09/17/2023 1 1 [facility] Work Phone: reason for referral (narrative)* Consultation (Routine) - Authorized Specialty Diagnoses / Procedures Referred By Contac t Referred To Contact Primary Care Diagnoses Mild vascular dementia without behavioral disturbance, psychotic disturbance, mood disturbance, or anxiety (Multi) Arteriosclerosis of coronary artery Bilateral carotid artery disease, unspecified type ([facility]) Essential hypertension Mixed hyperlipidemia Gastroesophageal reflux disease without esophagitis Obstructive sleep apnea syndrome Hypersomnolence Other polyneuropathy Routine general medical examination at health care facility Screening for prostate cancer B12 deficiency Procedures Follow Up In Primary Care - Established Maria Malik MD [address] [place], [place] [id number] Referral ID Status Reason Start Date Expiration Date V isits Requested Visits Authorized [id number] Authorized 12/22/2023 12/21/2024 1 1 [facility] Work Phone: Summary Purpose Family History Mother Name Dates Details Family history of diabetes m ellitus(V18.0, Z83.3) Status:Active Sister Name Dates Details Family history of diabetes m ellitus(V18.0, Z83.3) Status:Active Mother Name Dates Details Family history of diabetes m ellitus(V18.0, Z83.3) Status:Active Sister Name Dates Details Family history of diabetes m ellitus(V18.0, Z83.3) Status:Active Unknown Family Member Name Dates Details Family history of diabetes m ellitus: Mother, Sister(V18.0, Z83.3) Status:Active No pertinent family history: Father(V49.89, Z78.9) Status:Active Unknown Family Member Name Dates Details Family history of diabetes m ellitus: Mother, Sister(V18.0, Z83.3) Status:Active No pertinent family history: Father(V49.89, Z78.9) Status:Active Unknown Family Member Name Dates Details Family history of diabetes m ellitus: Mother, Sister(V18.0, Z83.3) Status:Active No pertinent family history: Father(V49.89, Z78.9) Status:Active Unknown Family Member Name Dates Details Family history of diabetes m ellitus: Mother, Sister(V18.0, Z83.3) Status:Active No pertinent family history: Father(V49.89, Z78.9) Status:Active Unknown Family Member Name Dates Details Family history of diabetes m ellitus: Mother, Sister(V18.0, Z83.3) Status:Active No pertinent family history: Father(V49.89, Z78.9) Status:Active Unknown Family Member Name Dates Details Family history of diabetes m ellitus: Mother, Sister(V18.0, Z83.3) Status:Active No pertinent family history: Father(V49.89, Z78.9) Status:Active Unknown Family Member Name Dates Details Family history of diabetes m ellitus: Mother, Sister(V18.0, Z83.3) Status:Active No pertinent family history: Father(V49.89, Z78.9) Status:Active Unknown Family Member Name Dates Details No pertinent family history: Father(V49.89, Z78.9) Status:Active Family history of diabetes m ellitus: Mother, Sister(V18.0, Z83.3) Status:Active Unknown Family Member Name Dates Details No pertinent family history: Father(V49.89, Z78.9) Status:Active Family history of diabetes m ellitus: Mother, Sister(V18.0, Z83.3) Status:Active Unknown Family Member Name Dates Details Family history of diabetes m ellitus: Mother, Sister(V18.0, Z83.3) Status:Active No pertinent family history: Father(V49.89, Z78.9) Status:Active Relationship Condition Age at Onset Recorded Date/T marianne mother Diabetes mellitus Unknown father Cardiac disease Unknown Advance Directives Documents on File Type Date Recorded Patient Civil Defense Director Expl anation Advance Directives and Living Will Documents on File Type Date Recorded Patient Civil Defense Director Expl anation Advance Directives and Livin g Will 12/24/2019 11:00 AM Documents on File Type Date Recorded Patient Civil Defense Director Expl anation Advance Directives and Livin g Will 12/24/2019 11:00 AM Documents on File Type Date Recorded Patient Civil Defense Director Expl anation Advance Directives and Livin g Will 02/27/2021 10:34 AM Documents on File Type Date Recorded Patient Civil Defense Director Expl anation Advance Directives and Livin g Will 09/25/2021 10:28 AM Advance Directive Response Recorded Date/ Time Living Will Yes July 04 10:15am Power of Lathe Puller Yes July 04 022 10:15am Advance Directive Response Recorded Date/ Time Advance Directives on File Yes December 17, 2022 6:51am Name of Medical Power of Lathe Puller Jolly Jaquez delmi December 17, 2022 6:51am Advance Directives Yes December 17 6:51am Living Will Yes December 17, 2022 6:51am Power of Lathe Puller Yes December 17 6:51am Advance Directive Response Recorded Date/ Time Advance Directives on File Yes December 17, 2022 6:51am Name of Medical Power of Lathe Puller Jolly Jaquez delmi December 17, 2022 6:51am Advance Directives Yes December 17 6:51am Living Will No March 14, 2023 1:26pm Power of Lathe Puller No February 1:26pm Documents on File Type Date Recorded Patient Civil Defense Director Expl anation Healthcare Power of Atty 03/10/2023 9:28 AM Documents on File Type Date Recorded Patient Civil Defense Director Expl anation Living Will 03/27/2023 Healthcare Power of Atty 03/10/2023 9:28 AM Healthcare Power of Atty 03/10/2023 Living Will 03/27/2023 LIVING WILL Advance Directive Response Recorded Date/ Time Advance Directives Yes December 17 5:51am Living Will No March 14, 2023 12:26pm Power of Lathe Puller No February 12:26pm Advance Directive Response Recorded Date/ Time Living Will No March 14, 2023 1:26pm Do you have a Healthcare Power of Lathe Puller? No March 14, 2023 1:26pm Do you have a Healthcare Power of Lathe Puller? Yes October 20, 2024 5:24pm Name of Medical Power of Lathe Puller mikala springOctober 20, 2024 5:24pm Advance Directives Yes December 17 6:51am History of Present Illness * Tony Fitzpatrick MD - 09/27/2019 9:45 AM EDT Telephone Visit Via Phone Call Patient ID: Ashley Weinstein is a 74 y.o. male on the phone for Problem Hld (Hyperlipidemia) Coronary Artery Disease Involving Pala Coronary Artery of Pala Heart Without Angina Pectoris [id number]-[id number]-IAP/Diag/RPDA Bilateral Carotid Artery Disease (Hcc) Left CEA-2011 2012-Dopplers [facility] 2017- 40-59% on L Patient phone : [phone] This visit has been fully reviewed with the patient and verbal consent has been obtained. HPI No issues The following portions of the patient's history were reviewed and updated as appropriate: allergies, current medications, past family history, past medical history, past social history, past surgicalhistory and problem list. ASSESSMENT AND PLAN: Bilateral carotid artery disease (HCC) Will get Carotid dopplers electively this spring/summer Coronary artery disease involving [place] coronary artery of [place] heart without angina pectoris Denies angina Doing well, Medications reviewed and will continue current meds Followup 1 year HLD (hyperlipidemia) Per Dr Malik Orders Placed This Encounter Procedures Ultrasound doppler carotid Return in about 1 year (around 09/26/2020). Review of Systems Patient's Medications New Prescriptions No medications on file Previous Medications AMLODIPINE (NORVASC) 10 MG TABLET Take 10 mg by mouth daily. ASPIRIN 325 MG EC TABLET Take 325 mg by mouth daily. ATORVASTATIN (LIPITOR) 40 MG TABLET Take 40 mg by mouth daily . METOPROLOL TARTRATE (LOPRESSOR) 25 MG TABLET Take 25 mg by mouth daily. OMEPRAZOLE (PRILOSEC) 40 MG CAPSULE Take 40 mg by mouth daily as needed . TAMSULOSIN (FLOMAX) 0.4 MG CAPSULE Take 0.4 mg by mouth daily. Modified Medications No medications on file Discontinued Medications No medications on file Provider location: [facility] [address] [facility] [address] [facility] [id number] Patient location: [address] [place] [id number] I have spent 5-10 minutes with the patient discussing current HPI. There are other unrelated non-urgent complaints, but due to the busy schedule and the amount of time I've already spent with him, time does not permit me to address these routine issues at today's visit. I've requested another appointment to review these additional issues. * Breonna Leal MA - 09/24/2019 12:17 PM EDT Review of Systems Constitution: Negative for diaphoresis, malaise/fatigue, weight gain and weight loss. HENT: Negative for hearing loss, nosebleeds and tinnitus. Eyes: Negative for blurred vision and visual disturbance. Cardiovascular: Negative for chest pain, claudication, cyanosis, dyspnea on exertion, irregular heartbeat, leg swelling, near-syncope, orthopnea, palpitations, paroxysmal nocturnal dyspnea and syncope. Respiratory: Negative for hemoptysis, shortness of breath and snoring. Endocrine: Negative for cold intolerance and heat intolerance. Hematologic/Lymphatic: Does not bruise/bleed easily. Skin: Negative for flushing, poor wound healing and rash. Musculoskeletal: Negative for back pain, muscle weakness and myalgias. Gastrointestinal: Negative for abdominal pain, change in bowel habit, melena, nausea and vomiting. Genitourinary: Negative for decreased libido and hematuria. Neurological: Negative for loss of balance and numbness. Psychiatric/Behavioral: Negative for memory loss. The patient is not nervous/anxious. documented in this encounter* Leobardo Malcolm MD - 02/15/2020 9:50 AM EDT [facility] - Neurology [address] [place] [address] [phone] Nerve Conduction & EMG Report Patient: Ashley Weinstein Sex: Male Date of : 1945 Visit Date: 02/15/2020 08:31 Age: 74 Years Examining MD: Leobardo Malcolm MD Referred by: Dr. Galeas Temperature: 30.2 .Current Height: 5 feet 4 inch Referred for: BLE burning pain for 4 months. No LBP or DM. Plan: The study was design to evaluate for entrapment neuropathy, polyneuropathy, radiculopathy, orplexopathy. Procedure indication, risk, complications, side effects and alternatives were explained. Patient agreed to proceed with verbal consent. Patient was instructed to clean the puncture site with soap and water and put some ice pack for bruising. EMG Summary: The right peroneal motor nerve conduction study showed normal latency, reduced amplitude and normal conduction velocity. The left peroneal and bilateral tibial motor nerve conduction studies were normal. The bilateral sural and superficial peroneal sensory nerve conduction studies were also normal. Thebilateral H reflex was normal. Needle EMG of the muscle tested showed no abnormal spontaneous activity. Normal motor unit action potentials and recruitment patterns were seen. Impression: There is NO clear electrodiagnostic evidence of a bilateral lumbosacral radiculopathy, plexopathy, or diffuse sensorimotor polyneuropathy at this time. The decreased amplitude of the right peroneal motor nerve conduction study is nonspecific at this time. Leobardo Malcolm MD Diplomate, ABPN, NBPAS Clinical Neurophysiology, Neurology, Vascular Neurology and Sleep Medicine [facility] [place] [phone] Nota bene: Portions of this chart was created using [employer] voice recognition software. Occasional wrong-word or sound-like substitutions may have occurred due to inherent limitations of the voice recognition software. Please read the chart carefully and recognize, using context, where the substitutions have occurred. Motor NCS Nerve / Sites Muscle Latency Amplitude Distance Velocity ms mV cm m/s R Deep peroneal (Fibular) - EDB Ankle EDB 3.67 0.3 8.5 Fib Head EDB 10.06 0.2 30.5 47.7 Knee EDB 11.52 0.2 7 48.0 L Deep peroneal (Fibular) - EDB Ankle EDB 3.92 5.5 8.5 Fib Head EDB 10.29 3.5 28 43.9 Knee EDB 11.50 4.3 7 57.9 R Tibial - . Ankle AH 3.63 7.4 8 Knee AH 13.46 3.9 40 40.7 L Tibial - . Ankle AH 3.88 9.8 8 Knee AH 12.85 2.9 38 42.3 Sensory NCS Nerve / Sites Rec. Site Peak Lat Amp.1 Amp.2 Distance Angel. ms V V cm m/s R Sural - . Calf Lat Mall 4.02 7.1 11.1 14 44.8 L Sural - . Calf Lat Mall 3.94 1.9 15.8 14 43.6 R Superficial peroneal - . Lat leg Ankle 3.40 6.2 4.4 14 53.8 L Superficial peroneal - . Lat leg Ankle 2.98 4.0 10.5 14 57.4 H Reflex Nerve H Lat ms R Tibial - . 32.08 L Tibial - . 32.50 EMG Summary Table Spontaneous Activity Amplitude Duration Recruitment Activation Polyphasia Comment Muscle Nerve Roots Ins Act Fib PSW Fasc - - - - - - R. Vastus lateralis Femoral L2-L4 Normal 0 0 0 Normal Normal Normal Normal Normal Normal R. Semitendinosus Sciatic (tibial division) L5-S2 Normal 0 0 0 Normal Normal Normal Normal Normal Normal R. Tibialis anterior Deep peroneal (Fibular) L4-L5 Normal 0 0 0 Normal Normal Normal Normal Normal Normal R. Gastrocnemius (Medial head) Tibial S1-S2 Normal 0 0 0 Normal Normal Normal Normal Normal Normal R. Abductor hallucis Tibial S1-S2 Normal 0 0 0 Normal Normal Normal Normal Normal Normal R. Lumbar paraspinals Spinal L1-L5 Normal 0 0 0 Normal Normal Normal Normal Normal Normal L. Vastus lateralis Femoral L2-L4 Normal 0 0 0 Normal Normal Normal Normal Normal Normal L. Semitendinosus Sciatic (tibial division) L5-S2 Normal 0 0 0 Normal Normal Normal Normal Normal Normal L. Tibialis anterior Deep peroneal (Fibular) L4-L5 Normal 0 0 0 Normal Normal Normal Normal Normal Normal L. Gastrocnemius (Medial head) Tibial S1-S2 Normal 0 0 0 Normal Normal Normal Normal Normal Normal L. Abductor hallucis Tibial S1-S2 Normal 0 0 0 Normal Normal Normal Normal Normal Normal L. Lumbar paraspinals Spinal L1-L5 Normal 0 0 0 Normal Normal Normal Normal Normal Normal documented in this encounter* Tony Fitzpatrick MD - 08/28/2020 9:29 AM EST Patient Name: Ashley Weinstein MR #: [id number] Interventional Cardiology Tony Fitzpatrick MD, [facility] 08/28/20 Dear Maria Malik MD, Ashley Weinstein was seen in follow up for : Problem Hld (Hyperlipidemia) Coronary Artery Disease Involving Pala Coronary Artery of Pala Heart Without Angina Pectoris 4126-[id number]-NZJ/Diag/RPDA Bilateral Carotid Artery Disease (Hcc) Left CEA-2011 2012-Dopplers great 2015, 2017- 40-59% on L 2019- minimal Plaque Assessment and Plan Coronary artery disease involving [place] coronary artery of [place] heart without angina pectoris No angina Doing well, Medications reviewed and will continue current meds Followup 1 year Bilateral carotid artery disease (HCC) No issues, Doing well, Medications reviewed and will continue current meds Followup 1 year HLD (hyperlipidemia) Per Dr Malik Thank you or allowing me to participate in the care of your patients. No orders of the defined types were placed in this encounter. Return in about 1 year (around 08/28/2021). EKG:Normal sinus rhythm. and poor r wave progression Subjective: Ashley Weinstein is a 75 y.o. y/o male : No issues Denies chest discomfort, sob, palpitations, pnd, orthopnea,edema or syncope. Past History and Exam PMH: Past Medical History: Diagnosis Date BPH (benign prostatic hyperplasia) Carotid artery stenosis Coronary artery disease GERD (gastroesophageal reflux disease) Hypertension Insomnia Kidney stone Physical exam: BP 128/63 (BP Location: Right arm, Patient Position: Sitting) Pulse (!) 58 Ht 5' 6 Wt 90.7 kg (200 lb) SpO2 94% BMI 32.28 kg/m General: No acute distress, alert, and oriented x3. HEENT: Normocephalic, nl conjunctiva Neck: Supple, no gross thyromegaly,no palpable neck adenopathy Cardiovascular: Regular rate and rhythm. no murmurs, .No JVD, No Carotid Bruits, no LE edema :Respiratory: Clear to auscultation bilaterally without wheezes, rhonchi, or rales Abdominal: soft, nontender, nondistended,no gross HSM or masses noted. Skin: Normal turgor,no major peripheral rashes noted. Extremities : No clubbing, cyanosis Neurological: Cranial nerves 2 through 12 intact grossly. No focal neurological deficits noted. Psych: Normal mood and affect. ROS/MA were reviewed Home Medications: Patient's Medications New Prescriptions No medications on file Previous Medications AMLODIPINE (NORVASC) 10 MG TABLET Take 10 mg by mouth daily. ASPIRIN 325 MG EC TABLET Take 325 mg by mouth daily. ATORVASTATIN (LIPITOR) 40 MG TABLET Take 40 mg by mouth daily . DULOXETINE (CYMBALTA) 60 MG CAPSULE Take 60 mg by mouth daily . FINASTERIDE (PROSCAR) 5 MG TABLET Take 5 mg by mouth daily . FLUTICASONE PROPIONATE (FLONASE) 50 MCG/ACTUATION NASAL SPRAY Instill 2 sprays into each nostril daily . LORATADINE (CLARITIN) 10 MG TABLET Take 10 mg by mouth daily . METOPROLOL TARTRATE (LOPRESSOR) 25 MG TABLET Take 25 mg by mouth 2 (two) times a day . TAMSULOSIN (FLOMAX) 0.4 MG CAPSULE Take 0.4 mg by mouth daily. TRIAMTERENE-HYDROCHLOROTHIAZIDE (DYAZIDE) 37.5-25 MG PER CAPSULE Take 1 capsule by mouth daily . Modified Medications No medications on file Discontinued Medications OMEPRAZOLE (PRILOSEC) 40 MG CAPSULE Take 40 mg by mouth daily as needed . * Breonna Leal MA - 08/28/2020 9:13 AM EST Review of Systems Constitution: Negative for diaphoresis, malaise/fatigue, weight gain and weight loss. HENT: Negative for hearing loss, nosebleeds and tinnitus. Eyes: Negative for blurred vision and visual disturbance. Cardiovascular: Negative for chest pain, claudication, cyanosis, dyspnea on exertion, irregular heartbeat, leg swelling, near-syncope, orthopnea, palpitations, paroxysmal nocturnal dyspnea and syncope. Respiratory: Negative for hemoptysis, shortness of breath and snoring. Endocrine: Negative for cold intolerance and heat intolerance. Hematologic/Lymphatic: Does not bruise/bleed easily. Skin: Negative for flushing, poor wound healing and rash. Musculoskeletal: Negative for back pain, muscle weakness and myalgias. Gastrointestinal: Negative for abdominal pain, change in bowel habit, melena, nausea and vomiting. Genitourinary: Negative for decreased libido and hematuria. Neurological: Negative for loss of balance and numbness. Psychiatric/Behavioral: Negative for memory loss. The patient is not nervous/anxious. documented in this encounter* Tony Fitzpatrick MD - 09/07/2018 10:24 AM EDT Patient Name: Ashley Weinstein [facility] MR #: [id number] Interventional Cardiology Tony Fitzpatrick MD, [facility] 09/07/18 Dear Maria Malik MD, Ashley Weinstein was seen in follow up for : Problem Coronary Artery Disease Involving Pala Coronary Artery of Pala Heart Without Angina Pectoris [id number]-[id number]/Diag/RPDA Bilateral Carotid Artery Disease (Hcc) Left CEA-2011 2012-Dopplers great 2017- 40-59% on L Essential Hypertension Assessment and Plan Coronary artery disease involving white [place] coronary artery of [place] heart without angina pectoris Staying active Doing well, Medications reviewed and will continue current meds Followup [address] Malik monitoring Bilateral carotid artery disease (HCC) no issues Doing well, Medications reviewed and will continue current meds Followup 1 year Thank you or allowing me to participate in the care of your patients. No orders of the defined types were placed in this encounter. Return in about 1 year (around 09/08/2019). EKG:not done Subjective: Eye issue Ow no cardiac issues Denies chest discomfort, sob, palpitations, pnd, orthopnea,edema or syncope. Past History and Exam PMH: Past Medical History: Diagnosis Date BPH (benign prostatic hyperplasia) Carotid artery stenosis Coronary artery disease GERD (gastroesophageal reflux disease) Hypertension Insomnia Kidney stone Physical exam: BP (!) 169/77 (BP Location: Left arm, Patient Position: Sitting) Pulse (!) 56 Ht 5' 6 Wt 96.8 kg (213 lb 8 oz) SpO2 94% BMI 34.46 kg/m General: No acute distress, alert, and oriented x3. HEENT: Normocephalic, Neck: Supple, Cardiovascular: Regular rate and rhythm. No , murmurs, No JVD, L Cea Carotid Bruits, LE edema Respiratory: Clear to auscultation bilaterally Abdominal: Soft, nontender, nondistended,. Skin: Normal turgor, well-hydrated, Extremities : No clubbing cyanosis Neurological: Cranial nerves 2 through 12 intact grossly. No focal neurological deficits noted. Psych: Normal mood and affect. ROS/MA were reviewed Home Medications: Medication List Accurate as of 09/07/18 10:27 AM. If you have any questions, ask your nurse or doctor. CONTINUE taking these medications amLODIPine 10 MG tablet Commonly known as: NORVASC aspirin 325 MG EC tablet atorvastatin 40 MG tablet Commonly known as: LIPITOR metoprolol tartrate 25 MG tablet Commonly known as: LOPRESSOR omeprazole 40 MG capsule Commonly known as: PRILOSEC tamsulosin 0.4 mg capsule Commonly known as: FLOMAX * Breonna Leal MA - 09/07/2018 10:17 AM EDT Review of Systems Constitution: Negative for diaphoresis, malaise/fatigue, weight gain and weight loss. HENT: Negative for hearing loss, nosebleeds and tinnitus. Eyes: Negative for blurred vision and visual disturbance. Cardiovascular: Negative for chest pain, claudication, cyanosis, dyspnea on exertion, irregular heartbeat, leg swelling, near-syncope, orthopnea, palpitations, paroxysmal nocturnal dyspnea and syncope. Respiratory: Negative for hemoptysis, shortness of breath and snoring. Endocrine: Negative for cold intolerance and heat intolerance. Hematologic/Lymphatic: Does not bruise/bleed easily. Skin: Negative for flushing, poor wound healing and rash. Musculoskeletal: Negative for back pain, muscle weakness and myalgias. Gastrointestinal: Negative for abdominal pain, change in bowel habit, melena, nausea and vomiting. Genitourinary: Negative for decreased libido and hematuria. Neurological: Negative for loss of balance and numbness. Psychiatric/Behavioral: Negative for memory loss. The patient is not nervous/anxious. in this encounter Assessments Diagnosis Bilateral carotid artery stenosis Occlusion and stenosis of carotid artery without mention of cerebral infarction Coronary artery disease involving [place] coronary artery of [place] heart without angina pectoris Mixed hyperlipidemia Diagnosis Bilateral carotid bruits Diagnosis Idiopathic progressive polyneuropathy Diagnosis Coronary artery disease involving [place] coronary artery of [place] heart without angina pectoris- Primary Diagnosis Coronary artery disease involving [place] coronary artery of [place] heart without angina pectoris Bilateral carotid artery stenosis Occlusion and stenosis of carotid artery without mention of cerebral infarction Mixed hyperlipidemia Diagnosis Coronary artery disease involving [place] coronary artery of [place] heart without angina pectoris Essential hypertension Unspecified essential hypertension Bilateral carotid artery stenosis Occlusion and stenosis of carotid artery without mention of cerebral infarction Reason for Referral Status Reason Specialty Diagnoses / Procedures Referred By Contact Referred To Contact Authorized Cardiology Diagnoses Bilateral carotid bruits Procedures [place] [address] [place] [address] Status Reason Specialty Diagnoses / Procedures Referred By Contact Referred To Contact Authorized Cardiology Diagnoses Coronary artery disease involving white [place] coronary artery of white [place] heart without angina pectoris Procedures [place] [address] [place] [address] Status Reason Specialty Diagnoses / Procedures Referred By Contact Referred To Contact Authorized Neurology Diagnoses Carpal tunnel syndrome, unspecified laterality Maria Malik MD [address] [place] [address] Leobardo Malcolm MD [address] [address] Specialty Diagnoses / Procedures Referred By Contac t Referred To Contact Cardiology Diagnoses Bilateral carotid artery stenosis Procedures Carotid Duplex Felecia Hamilton MD [address] [place] [address] Referral ID Status Reason Start Date Expiration Date V isits Requested Visits Authorized [id number] Authorized 12/26/2021 12/26/2022 1 1 Specialty Diagnoses / Procedures Referred By Contac t Referred To Contact Cardiology Diagnoses Coronary artery disease involving white [place] coronary artery of [place] heart without angina pectoris Procedures Extended Holter Monitor (3-7 days) Felecia Hamilton MD [address] [place] [address] Referral ID Status Reason Start Date Expiration Date Visits Re quested Visits Authorized [id number] Closed 09/25/2021 09/25/2022 1 1 Specialty Diagnoses / Procedures Referred By Contac t Referred To Contact Radiology Diagnoses Coronary artery disease involving [place] coronary artery of [place] heart without angina pectoris Procedures NM Myocardial Perfusion Multiple SPECT Felecia Hamilton MD [address] [place] [address] Referral ID Status Reason Start Date Expiration Date V isits Requested Visits Authorized [id number] New Request 09/25/2021 09/25/2022 4 4 Specialty Diagnoses / Procedures Referred By Contac t Referred To Contact Cardiology Diagnoses Coronary artery disease involving [place] coronary artery of [place] heart without angina pectoris Procedures ECG 12 lead Felecia Hamilton MD [address] [place] [address] Referral ID Status Reason Start Date Expiration Date V isits Requested Visits Authorized [id number] Authorized 09/25/2021 09/25/2022 1 1 Specialty Diagnoses / Procedures Referred By Contac t Referred To Contact Sleep Lab Diagnoses Obstructive sleep apnea syndrome Hypersomnolence Procedures Home sleep apnea test (HSAT) Maria Malik MD [address] [place] [address] Referral ID Status Reason Start Date Expiration Date V isits Requested Visits Authorized [id number] Pending Review 06/20/2023 06/19/2024 1 1 Specialty Diagnoses / Procedures Referred By Contac t Referred To Contact Primary Care Diagnoses Mild vascular dementia without behavioral disturbance, psychotic disturbance, mood disturbance, or anxiety (CMS/HCC) Arteriosclerosis of coronary artery Bilateral carotid artery disease, unspecified type ([facility]) Essential hypertension Mixed hyperlipidemia Gastroesophageal reflux disease without esophagitis Obstructive sleep apnea syndrome Hypersomnolence Other polyneuropathy Procedures Follow Up In Primary Care - Established Maria Malik MD [address] [place] [phone] Referral ID Status Reason Start Date Expiration Date V isits Requested Visits Authorized [id number] Authorized 06/20/2023 06/19/2024 1 1 Specialty Diagnoses / Procedures Referred By Contac t Referred To Contact Diagnoses Mild vascular dementia without behavioral disturbance, psychotic disturbance, mood disturbance, or anxiety ([facility]) [place] [address] Referral ID Status Reason Start Date Expiration Date Visits Re quested Visits Authorized [id number] Closed 1 1 Instructions * Patient Instructions* Breonna Leal MA - 08/28/2020 9:15 AM EST How to contact your Care Team: Provider: Dr. Fitzpatrick Nurse: Brittany Ramey RN In case of an emergency please call 911. REFILLS: When in need for refills please call your care team or the office at [phone]. Please include medication name, pharmacy name, and specify 30-day or 90-day supply. Please check with your pharmacy within 24 hours of request for your refill. You must follow up as directed to continue current refills. Thank you! documented in this encounter Chief Complaint 3 MO BPH CARPAL TUNNEL RT WRIST DEP GERD HL HTN REV LABSHOSP F/U 2WKSAcute cholecystitiss/p laparoscopic subtotal cholecystectomy6 MO F/U HTN HL LABS6 MO F/U REV LABS Chief Complaint and Reason for Visit Chief Complaint EST CAROTID STENOSIS cad Amb Documentation Reason for Visit Atherosclerosis of c oronary artery of white [place] heart without angina pectoris Hyperlipidemia Hypertension Chief Complaint EST CAROTID STENOSIS cad Amb Documentation ABN STRESS CABG Reason for Visit Atherosclerosis of c oronary artery of [place] heart without angina pectoris Hyperlipidemia Hypertension Chief Complaint EST CAROTID STENOSIS cad Amb Documentation ABN STRESS CABG LEFT SHOUDLER LEFT SHOULDER INJURY LEFT SHOULDER PREOP PREOP Reason for Visit Atherosclerosis of c oronary artery of [place] heart without angina pectoris Hyperlipidemia Hypertension Closed fracture of left proximal humerus Closed fracture of left proximal humerus Closed fracture of left proximal humerus Chief Complaint LEFT SHOULDER Room 2 FX LT PROX HUMNERUS/RX HERE LEFT SHOULDER Reason for Visit Closed fracture of l eft proximal humerus Closed fracture of left proximal humerus Chief Complaint Admit Date [facility] RULE OUT October 20, 2024 3:5 2pm [facility] RULE OUT October 21, 2024 3:0 3pm STROKE October 29, 2024 6:35am S/P [facility] 10/24October 29, 2024 10:29a m LEFT SHOULDER November 02, 2024 8:12am Room 3 November 02, 2024 8:17am Carotids, post TIA November 24, 2024 8:58a m Reason for Visit Admit Date Left leg weakness October 20, 2024 3:5 2pm CVA (cerebral vascular accident) October 10:29am Atherosclerosis of coronary artery of [place] heart without angina pectoris October 29, 2024 10:29am Hyperlipidemia October 29, 2024 10:29a m Hypertension October 29, 2024 10:29a m Carotid stenosis October 29, 2024 10:29a m S/p reverse total shoulder arthroplasty November 02, 2024 8:12am Chief Complaint Admit Date [facility] RULE OUT October 20, 2024 3:5 2pm [facility] RULE OUT October 21, 2024 3:0 3pm STROKE October 29, 2024 6:35am 30 DAY MONITOR October 29, 2024 9:00am S/P [facility] 10/24October 29, 2024 10:29a m LEFT SHOULDER November 02, 2024 8:12am Room 3 November 02, 2024 8:17am Carotids, post TIA November 24, 2024 8:58a m R ICA STENOSIS RECENT CVA December 01, 2024 8:26am Reason for Visit Admit Date Left leg weakness October 20, 2024 3:5 2pm CVA (cerebral vascular accident) October 10:29am Atherosclerosis of coronary artery of [place] heart without angina pectoris October 29, 2024 10:29am Hyperlipidemia October 29, 2024 10:29a m Hypertension October 29, 2024 10:29a m Carotid stenosis October 29, 2024 10:29a m S/p reverse total shoulder arthroplasty November 02, 2024 8:12am Bilateral carotid artery stenosis November 242024 8:58am Chief Complaint Admit Date [facility] RULE OUT October 20, 2024 3:5 2pm [facility] RULE OUT October 21, 2024 3:0 3pm STROKE October 29, 2024 6:35am 30 DAY MONITOR October 29, 2024 9:00am S/P [facility] 10/24October 29, 2024 10:29a m LEFT SHOULDER November 02, 2024 8:12am Room 3 November 02, 2024 8:17am Carotids, post TIA November 24, 2024 8:58a m R ICA STENOSIS RECENT CVA December 01, 2024 8:26am 1 Y FU January 18, 2025 9:00 am Reason for Visit Admit Date Left leg weakness October 20, 2024 3:5 2pm CVA (cerebral vascular accident) October 10:29am Atherosclerosis of coronary artery of [place] heart without angina pectoris October 29, 2024 10:29am Hyperlipidemia October 29, 2024 10:29a m Hypertension October 29, 2024 10:29a m Carotid stenosis October 29, 2024 10:29a m S/p reverse total shoulder arthroplasty November 02, 2024 8:12am Bilateral carotid artery stenosis November 242024 8:58am CVA (cerebral vascular accident) January 182024 9:00am Atherosclerosis of coronary artery of [place] heart without angina pectoris January 18, 2025 9:00am Hyperlipidemia January 18, 2025 9:00 am Hypertension January 18, 2025 9:00 am Carotid stenosis January 18, 2025 9:00 am Chief Complaint Admit Date [facility] RULE OUT October 20, 2024 3:5 2pm [facility] RULE OUT October 21, 2024 3:0 3pm STROKE October 29, 2024 6:35am 30 DAY MONITOR October 29, 2024 9:00am S/P [facility] 10/24October 29, 2024 10:29a m LEFT SHOULDER November 02, 2024 8:12am Room 3 November 02, 2024 8:17am Carotids, post TIA November 24, 2024 8:58a m R ICA STENOSIS RECENT CVA December 01, 2024 8:26am 1 Y FU January 18, 2025 9:00 am E ORDER January 18, 2025 9:37 am Additional Source Comments (unrecognized sect ion and content) No Status Records FoundNo Status Records FoundNo Status Records FoundNo Status Records FoundNo Status Records FoundNo Status Records FoundNo Status Records FoundNo Status Records FoundNo Status Records FoundNo Status Records FoundNo Status Records FoundNo Status Records FoundNo Status Records FoundNo Status Records FoundNo Status Records Found INFORMATION SOURCE (unrecogn ized section and content) DATE CREATED AUTHOR 04/04/2019 [facility] DATE CREATED AUTHOR AUTHOR'S ORGANIZ ATION 02/28/2021 [facility] DATE CREATED AUTHOR AUTHOR'S ORGANIZ ATION 06/17/2021 [facility] DATE CREATED AUTHOR AUTHOR'S ORGANIZ ATION 04/01/2022 [facility] DATE CREATED AUTHOR AUTHOR'S ORGANIZ ATION 08/28/2022 [facility] DATE CREATED AUTHOR AUTHOR'S ORGANIZ ATION 08/29/2022 [facility] DATE CREATED AUTHOR AUTHOR'S ORGANIZ ATION 08/29/2022 [employer] DATE CREATED AUTHOR AUTHOR'S ORGANIZ ATION 07/14/2023 [facility] DATE CREATED AUTHOR AUTHOR'S ORGANIZ ATION 06/13/2024 [facility] DATE CREATED AUTHOR AUTHOR'S ORGANIZ ATION 12/18/2024 [facility] DATE CREATED AUTHOR AUTHOR'S ORGANIZ ATION 12/21/2024 [facility] DATE CREATED AUTHOR AUTHOR'S ORGANIZ ATION 12/24/2024 [facility] DATE CREATED AUTHOR AUTHOR'S ORGANIZ ATION 12/31/2024 [facility] DATE CREATED AUTHOR AUTHOR'S ORGANIZ ATION 01/19/2025 [facility] DATE CREATED AUTHOR AUTHOR'S ORGANIZ ATION 01/23/2025 [facility] Reason for Visit (unrecogniz ed section and content) Reason Comments Annual Exam no complaints. medic ations reviewed- PCP manages refills. requested pt to check B/P before appt. Status Reason Specialty Diagnoses / Procedures Re ferred By Contact Referred To Contact Closed Specialty Services Required/Patient 's Best Interest Neurology Diagnoses Idiopathic progressive polyneuropathy Cody Galeas, DPKaelyn [address] [place] [phone] Leobardo Malcolm MD [address] [place] [address] Reason Comments Annual Exam Reason Comments Annual Exam pt denies any cardia c concerns for todays visit Status Reason Specialty Diagnoses / Procedures Referre d By Contact Referred To Contact Closed Neurology Diagnoses Carpal tunnel syndrome, unspecified laterality Maria Malik MD [address] [place] [phone] Leobardo Malcolm MD [address] [place] [address] Reason Comments Status Reason Specialty Diagnoses / Procedures Referred By Contact Referred To Contact Closed Sports Medicine Diagnoses Right wrist pain Maria Malik MD [address] [place] [phone] Mike White MD [address] [place] [address] Reason Comments 3 MO LABS Reason Comments 3 MO LAB Specialty Diagnoses / Procedures Referred By Contac t Referred To Contact Primary Care Diagnoses Obstructive sleep apnea syndrome Other polyneuropathy Arteriosclerosis of coronary artery Bilateral carotid artery disease, unspecified type ([facility]) Essential hypertension History of vascular surgery Gastroesophageal reflux disease without esophagitis Benign prostatic hyperplasia without lower urinary tract symptoms Mixed hyperlipidemia Nasal congestion Mild vascular dementia without behavioral disturbance, psychotic disturbance, mood disturbance, or anxiety ([facility]) Procedures Follow Up In Primary Care Maria Malik MD [address] [place] [address] Referral ID Status Reason Start Date Expiration Date V isits Requested Visits Authorized [id number] Authorized 11/29/2022 05/28/2023 1 1 Reason Comments 3 MO LABS Specialty Diagnoses / Procedures Referred By Contac t Referred To Contact Primary Care Procedures Follow Up In Primary Care - Established Maria Malik MD [address] [place] [id number] Referral ID Status Reason Start Date Expiration Date V isits Requested Visits Authorized [id number] Authorized 03/21/2023 09/17/2023 1 1 Reason Comments Medicare Annual Wellness Visit [facility] 6 MO LABS Specialty Diagnoses / Procedures Referred By Contac t Referred To Contact Primary Care Diagnoses Mild vascular dementia without behavioral disturbance, psychotic disturbance, mood disturbance, or anxiety (Multi) Arteriosclerosis of coronary artery Bilateral carotid artery disease, unspecified type (CMS-HCC) Essential hypertension Mixed hyperlipidemia Gastroesophageal reflux disease without esophagitis Obstructive sleep apnea syndrome Hypersomnolence Other polyneuropathy Procedures Follow Up In Primary Care - Established Maria Malik MD [address] [place] [address] Referral ID Status Reason Start Date Expiration Date V isits Requested Visits Authorized [id number] Authorized 06/20/2023 06/19/2024 1 1 Reason Comments 6 MO LABS Specialty Diagnoses / Procedures Referred By Contac t Referred To Contact Primary Care Diagnoses Mild vascular dementia without behavioral disturbance, psychotic disturbance, mood disturbance, or anxiety Arteriosclerosis of coronary artery Bilateral carotid artery disease, unspecified type (CMS-HCC) Essential hypertension Mixed hyperlipidemia Gastroesophageal reflux disease without esophagitis Obstructive sleep apnea syndrome Hypersomnolence Other polyneuropathy Routine general medical examination at health care facility Screening for prostate cancer B12 deficiency Procedures Follow Up In Primary Care - Established Maria Malik MD Phone: tel: fax: Referral ID Status Reason Start Date Expiration Date V isits Requested Visits Authorized [id number] Authorized 12/22/2023 12/21/2024 1 1 Reason Comments New Patient Stroke - October 20 2024 Reason Comments Received Outside Medical Records Rec'd c amydiac event monitor report from [employer] imported into [employer]. Reason Comments Imaging/Records Orders Reason Comments New Patient Specialty Diagnoses / Procedures Referred By Contac t Referred To Contact Primary Care Diagnoses Mild vascular dementia without behavioral disturbance, psychotic disturbance, mood disturbance, or anxiety Arteriosclerosis of coronary artery Bilateral carotid artery disease, unspecified type Essential hypertension Mixed hyperlipidemia Gastroesophageal reflux disease without esophagitis Obstructive sleep apnea syndrome Hypersomnolence Other polyneuropathy Routine general medical examination at health care facility Screening for prostate cancer B12 deficiency Benign prostatic hyperplasia without lower urinary tract symptoms Procedures Follow Up In Primary Care - Established Maria Malik MD [address] [address] Phone: tel: fax: Referral ID Status Reason Start Date Expiration Date V isits Requested Visits Authorized [id number] Authorized 06/21/2024 06/21/2025 1 1 Addendum Note - Tony Fitzpatrick MD - 09/27/2019 10:06 AM EDTAssessment & Plan Note - Tony Fitzpatrick MD - 09/27/2019 9:23 AM EDT Miscellaneous Notes (unrecog nized section and content) Addended by: TONY FITZPATRICK on: 09/27/2019 10:06 AM Modules accepted: Orders Associated Problem(s): HLD (hyperlipidemia) Per Dr Malik Associated Problem(s): Coronary artery disease involving [place] coronary artery of [place] heart without angina pectoris Denies angina Doing well, Medications reviewed and will continue current meds Followup 1 year Associated Problem(s): Bilateral carotid artery disease (HCC) Will get Carotid dopplers electively this spring/summer documented in this encounter Associated Problem(s): HLD (hyperlipidemia) Per Dr Malik Associated Problem(s): Bilateral carotid artery disease (HCC) No issues, Doing well, Medications reviewed and will continue current meds Followup 1 year Associated Problem(s): Coronary artery disease involving [place] coronary artery of [place] heart without angina pectoris No angina Doing well, Medications reviewed and will continue current meds Followup 1 year documented in this encounter Associated Problem(s): Bilateral carotid artery disease (HCC) no issues Doing well, Medications reviewed and will continue current meds Followup 1 year Associated Problem(s): Essential hypertension Dr Malik monitoring Associated Problem(s): Coronary artery disease involving [place] coronary artery of [place] heart without angina pectoris Staying active Doing well, Medications reviewed and will continue current meds Followup 1 year in this encounter Care Teams (unrecognized sec tion and content) Sales Mgr Relationship Specialty Start Date End Date Maria Malik MD [address] [place] [phone] PCP - General Family Medicine 09/07/18 Sales Mgr Relationship Specialty Start Date End Date Maria Malik MD [address] [place] [address] PCP - General Family Medicine 09/07/18 Sales Mgr Relationship Specialty Start Date End Date Maria Malik MD [address] [place] [phone] PCP - General Family Medicine 09/07/18 Sales Mgr Relationship Specialty Start Date End Date Maria Malik MD [address] [place] [phone] PCP - General Family Medicine 09/07/18 Sales Mgr Relationship Specialty Start Date End Date Maria Malik MD [address] [place] [phone] PCP - General Family Medicine 09/07/18 Sales Mgr Relationship Specialty Start Date End Date Maria Malik MD [address] [place] [address] PCP - General 03/15/19 Maria Malik MD [address] [facility] [place] [address] PCP - [employer]age PCP 06/30/21 Team Status: Active Member Role Status Dates Dr. Lowell Malik MD Primary Care Provider Active Team Status: Inactive Member Role Status Dates Dr. Lowell Malik MD Primary Care Provider, Referr ing Provider Active Dr. Canelo Garcia MD Attending Provider Active Team Status: Active Member Role Status Dates Dr. Lowell Malik MD Primary Care Provider Active Dr. Wilberto Doshi MD Attending Provider Active Team Status: Active Member Role Status Dates Dr. Lowell Malik MD Primary Care Provider Active Dr. Canelo Gracia MD Attending Provider Active Team Status: Active Member Role Status Dates Dr. Lowell Malik MD Primary Care Provider Active Kelly Whitley Attending Provider Active Team Status: Inactive Member Role Status Dates Dr. Lowell Malik MD Primary Care Provider Active Dr. Canelo Garcia MD Attending Provider, Referring Pro vider Active Team Status: Active Member Role Status Dates Dr. Lowell Malik MD Primary Care Provider Active Dr. Wilberto Doshi MD Attending Provider Active Dr. Canelo Garcia MD Referring Provider Active Team Status: Active Member Role Status Dates Dr. Lowell Malik MD Primary Care Provider Active Dr. Canelo Garcia MD Attending Provider, Referring Pro vider Active Team Status: Inactive Member Role Status Dates Dr. Lowell Malik MD Primary Care Provider, Referr ing Provider Active Dustin Mosqueda MD Attending Provider Active Team Status: Active Member Role Status Dates Dr. Lowell Malik MD Primary Care Provider Active Dustin Mosqueda MD Attending Provider, Referring Provider, Other Provider Active Dr. Wilberto Glover MD Other Provider Active Team Status: Inactive Member Role Status Dates Dr. Lowell Malik MD Primary Care Provider Active Dustin Mosqueda MD Attending Provider, Referring Prov ider Active Team Status: Inactive Member Role Status Dates Dr. Lowell Malik MD Primary Care Provider Active Dustin Mosqueda MD Attending Provider, Referring Prov ider Active Dr. Wilberto Glover MD Other Provider Active Sales Mgr Relationship Specialty Start Date End Date Maria Malik MD PCP - General 03/15/19 Maria Malik MD [address] [place] [address] PCP - [employer] Medicare Advantage PCP 06/30/21 Sales Mgr Relationship Specialty Start Date End Date Maria Malik MD PCP - General 03/15/19 Maria Malik MD [address] [place] [address] PCP - [employer] Medicare Advantage PCP 06/30/21 Team Status: Inactive Member Role Status Dates Dr. Lowell Malik MD Primary Care Provider Active Dr. Canelo Garcia MD Attending Provider Active Sales Mgr Relationship Specialty Start Date End Date Maria Malik MD [address] [place] [address] PCP - [employer] Medicare Advantage PCP 06/30/21 Maria Malik MD [address] [place] [address] PCP - General Family Medicine 07/08/23 Sales Mgr Relationship Specialty Start Date End Date Maria Malik MD [address] [address] PCP - [employer] Medicare Advantage PCP 06/30/21 Maria Malik MD [address] [address] PCP - General Family Medicine 06/21/24 Team Status: Inactive Member Role Status Dates Dr. Lowell Malik MD Primary Care Provider Active Start: October 20, 2024 End: October 21, 2024 Dr. Nehemiah Puckett , Emergency Provider Activ e Start: October 20, 2024 End: October 21, 2024 Dr. Judy Aguilar MD Admit Provider Active Star t: October 20, 2024 End: October 21, 2024 Dr. Judy Aguilar MD Other Provider Active Star t: October 20, 2024 End: October 21, 2024 Zak Cadena MD Other Provider Active Start: 2024 End: October 21, 2024 Dr. Rodo Eid MD Other Provider Active Start: October 20, 2024 End: October 21, 2024 Lacy Barry MD Other Provider Active Start : October 20, 2024 End: October 21, 2024 Dr. Radha Samaniego DO Other Provider Active St art: October 20, 2024 End: October 21, 2024 Dr. Maria Elena Duckworth MD Other Provider Active Start: October 20, 2024 End: October 21, 2024 Dr. Wes Chang MD Other Provider Active Sta rt: October 20, 2024 End: October 21, 2024 Dr. Zayda Pastor MD Other Provider Active Start : October 20, 2024 End: October 21, 2024 Dr. Colt Stoddard MD Other Provider Active Start: October 20, 2024 End: October 21, 2024 Dr. Felecia Claros MD Other Provider Active Start : October 20, 2024 End: October 21, 2024 Dr. Kirk Castellon MD Other Provider Active Sta rt: October 20, 2024 End: October 21, 2024 Adrienne Hirsch MD Other Provider Active Start : October 20, 2024 End: October 21, 2024 Dr. Mike Pan MD Other Provider Active St art: October 20, 2024 End: October 21, 2024 Dr. Otilia Simons MD Other Provider Active Start : October 20, 2024 End: October 21, 2024 Dr. Carly Krishnamurthy MD Other Provider Active Sta rt: October 20, 2024 End: October 21, 2024 Dr. Bianca Henderson MD Other Provider Active Start: October 20, 2024 End: October 21, 2024 Dr. Ge Goldsmith MD Other Provider Active St art: October 20, 2024 End: October 21, 2024 Dr. Dinesh Mendiola MD Other Provider Active Star t: October 20, 2024 End: October 21, 2024 Dr. Dominick Sterling MD Other Provider Active St art: October 20, 2024 End: October 21, 2024 Dr. Kiley Myrick MD Other Provider Active Start: October 20, 2024 End: October 21, 2024 Taj Mendiloa MD Other Provider Active Start: October 20, 2024 End: October 21, 2024 Dr. Ej Recio DO Attending Provider Active Start: October 20, 2024 End: October 21, 2024 Team Status: Active Member Role Status Dates Dr. Lowell Malik MD Primary Care Provider Active Start: October 21, 2024 Dr. Canelo Garcia MD Attending Provider Active S tart: October 21, 2024 Team Status: Active Member Role Status Dates Dr. Lowell Malik MD Primary Care Provider Active Start: October 21, 2024 Dr. Nehemiah Puckett DO Emergency Provider Activ e Start: October 21, 2024 Dr. Judy Aguilar MD Admit Provider Active Star t: October 21, 2024 Dr. Judy Aguilar MD Other Provider Active Star t: October 21, 2024 Zak Cadena MD Other Provider Active Start: 2024 Dr. Rodo Eid MD Other Provider Active Start: October 21, 2024 Lacy Barry MD Other Provider Active Start : October 21, 2024 Dr. Radha Samaniego DO Other Provider Active St art: October 21, 2024 Dr. Maria Elena Duckworth MD Other Provider Active Start: October 21, 2024 Dr. Wes Chang MD Other Provider Active Sta rt: October 21, 2024 Dr. Zayda Pastor MD Other Provider Active Start : October 21, 2024 Dr. Colt Stoddard MD Other Provider Active Start: October 21, 2024 Dr. Felecia Claros MD Other Provider Active Start : October 21, 2024 Dr. Kirk Castellon MD Other Provider Active Sta rt: October 21, 2024 Adrienne Hirsch MD Other Provider Active Start : October 21, 2024 Dr. Mike Pan MD Other Provider Active St art: October 21, 2024 Dr. Otilia Simons MD Other Provider Active Start : October 21, 2024 Dr. Carly Krishnamurthy MD Other Provider Active Sta rt: October 21, 2024 Dr. Bianca Henderson MD Other Provider Active Start: October 21, 2024 Dr. Ge Goldsmith MD Other Provider Active St art: October 21, 2024 Dr. Dinesh Mendiola MD Other Provider Active Star t: October 21, 2024 Dr. Dominick Sterling MD Other Provider Active St art: October 21, 2024 Dr. Kiley Myrick MD Other Provider Active Start: October 21, 2024 Taj Mendiola MD Other Provider Active Start: October 21, 2024 Dr. Ej Recio DO Attending Provider Active Start: October 21, 2024 Dr. Ej Recio DO Other Provider Active S tart: October 21, 2024 Team Status: Active Member Role Status Dates Dr. Lowell Malik MD Primary Care Provider Active Start: October 29, 2024 Dr. Ej Recio DO Attending Provider Active Start: October 29, 2024 Dr. Ej Recio DO Referring Provider Active Start: October 29, 2024 Team Status: Inactive Member Role Status Dates Dr. Lowell Malik MD Primary Care Provider Active Start: October 29, 2024 End: October 29, 2024 Dr. Lowell Malik MD Referring Provider Active Start: October 29, 2024 End: October 29, 2024 Anali Park HOT BILLET SHEAR OPERATOR, HOT BILLET SHEAR OPERATOR-C Attending Provider Active Start: October 29, 2024 End: October 29, 2024 Team Status: Inactive Member Role Status Dates Dr. Lowell Malik MD Primary Care Provider Active Start: November 02, 2024 End: November 02, 2024 Dr. Lowell Malik MD Referring Provider Active Start: November 02, 2024 End: November 02, 2024 Dustin Mosqueda MD Attending Provider Active St art: November 02, 2024 End: November 02, 2024 Team Status: Inactive Member Role Status Dates Dr. Lowell Malik MD Primary Care Provider Active Start: November 02, 2024 End: November 02, 2024 Dr. Canelo Garcia MD Attending Provider Active S tart: November 02, 2024 End: November 02, 2024 Team Status: Inactive Member Role Status Dates Dr. Lowell Malik MD Primary Care Provider Active Start: November 24, 2024 End: November 24, 2024 Dr. Lowell Malik MD Referring Provider Active Start: November 24, 2024 End: November 24, 2024 ALYSSA Couch Attending Provider Active Star t: November 24, 2024 End: November 24, 2024 Sales Mgr Relationship Specialty Start Date End Date Tony Fernandez DO PCP - General Internal Medicine 10/20/12 Team Status: Active Member Role Status Dates Dr. Lowell Malik MD Primary Care Provider Active Start: October 29, 2024 Dr. Canelo Garcia MD Attending Provider Active S tart: October 29, 2024 Dr. Ej Recio DO Referring Provider Active Start: October 29, 2024 Team Status: Inactive Member Role Status Dates Dr. Lowell Malik MD Primary Care Provider Active Start: December 01, 2024 End: December 01, 2024 ALYSSA Couch Attending Provider Active Star t: December 01, 2024 End: December 01, 2024 ALYSSA Couch Referring Provider Active Star t: December 01, 2024 End: December 01, 2024 Team Status: Active Member Role Status Dates Dr. Lowell Malik MD Primary Care Provider Active Start: December 01, 2024 Dr. Wilberto Doshi MD Attending Provider Active S tart: December 01, 2024 Sales Mgr Relationship Specialty Start Date End Date Tony PCP - General Internal Medicine 10/20/12 Sales Mgr Relationship Specialty Start Date End Date Tony Julia PCP - General Internal Medicine 10/20/12 12/19/24 Maria Malik MD [address] [address] PCP - General Family Medicine 12/20/24 Sales Mgr Relationship Specialty Start Date End Date Maria Malik MD [address] [address] PCP - General Family Medicine 12/20/24 Sales Mgr Relationship Specialty Start Date End Date Maria Malik MD [address] [address] PCP - [employer] PCP 06/30/21 Maria Malik MD [address] [address] PCP - General Family Medicine 06/21/24 Team Status: Active Member Role/Relationship Status Dates Dr. Lowell Malik MD Primary Care Provider Active Team Status: Inactive Member Role/Relationship Status Dates Dr. Lowell Malik MD Primary Care Provider Active Start: October 20, 2024 End: October 21, 2024 Dr. Nehemiah Puckett DO Emergency Provider Activ e Start: October 20, 2024 End: October 21, 2024 Dr. Judy Aguilar MD Admit Provider Active Star t: October 20, 2024 End: October 21, 2024 Dr. Judy Aguilar MD Other Provider Active Star t: October 20, 2024 End: October 21, 2024 Zak Cadena MD Other Provider Active Start: 2024 End: October 21, 2024 Dr. Rodo Eid MD Other Provider Active Start: October 20, 2024 End: October 21, 2024 Lacy Barry MD Other Provider Active Start : October 20, 2024 End: October 21, 2024 Dr. Radha Samaniego DO Other Provider Active St art: October 20, 2024 End: October 21, 2024 Dr. Maria Elena Duckworth MD Other Provider Active Start: October 20, 2024 End: October 21, 2024 Dr. Wes Chang MD Other Provider Active Sta rt: October 20, 2024 End: October 21, 2024 Dr. Zayda Pastor MD Other Provider Active Start : October 20, 2024 End: October 21, 2024 Dr. Colt Stoddard MD Other Provider Active Start: October 20, 2024 End: October 21, 2024 Dr. Felecia Claros MD Other Provider Active Start : October 20, 2024 End: October 21, 2024 Dr. Kirk Castellon MD Other Provider Active Sta rt: October 20, 2024 End: October 21, 2024 Adrienne Hirsch MD Other Provider Active Start : October 20, 2024 End: October 21, 2024 Dr. Mike Pan MD Other Provider Active St art: October 20, 2024 End: October 21, 2024 Dr. Otilia Simons MD Other Provider Active Start : October 20, 2024 End: October 21, 2024 Dr. Carly Krishnamurthy MD Other Provider Active Sta rt: October 20, 2024 End: October 21, 2024 Dr. Bianca Henderson MD Other Provider Active Start: October 20, 2024 End: October 21, 2024 Dr. Ge Goldsmith MD Other Provider Active St art: October 20, 2024 End: October 21, 2024 Dr. Dinesh Mendiola MD Other Provider Active Star t: October 20, 2024 End: October 21, 2024 Dr. Dominick Sterling MD Other Provider Active St art: October 20, 2024 End: October 21, 2024 Dr. Kiley Myrick MD Other Provider Active Start: October 20, 2024 End: October 21, 2024 Taj Mendiola MD Other Provider Active Start: October 20, 2024 End: October 21, 2024 Dr. Ej Recio DO Attending Provider Active Start: October 20, 2024 End: October 21, 2024 Team Status: Active Member Role/Relationship Status Dates Dr. Lowell Malik MD Primary Care Provider Active Start: October 21, 2024 Dr. Canelo Garcia MD Attending Provider Active S tart: October 21, 2024 Team Status: Active Member Role/Relationship Status Dates Dr. Lowell Malik MD Primary Care Provider Active Start: October 21, 2024 Dr. Nehemiah Puckett DO Emergency Provider Activ e Start: October 21, 2024 Dr. Judy Aguilar MD Admit Provider Active Star t: October 21, 2024 Dr. Judy Aguilar MD Other Provider Active Star t: October 21, 2024 Zak Cadena MD Other Provider Active Start: 2024 Dr. Rodo Eid MD Other Provider Active Start: October 21, 2024 Lacy Barry MD Other Provider Active Start : October 21, 2024 Dr. Radha Samaniego DO Other Provider Active St art: October 21, 2024 Dr. Maria Elena Duckworth MD Other Provider Active Start: October 21, 2024 Dr. Wes Chang MD Other Provider Active Sta rt: October 21, 2024 Dr. Zayda Pastor MD Other Provider Active Start : October 21, 2024 Dr. Colt Stoddard MD Other Provider Active Start: October 21, 2024 Dr. Felecia Claros MD Other Provider Active Start : October 21, 2024 Dr. Kirk Castellon MD Other Provider Active Sta rt: October 21, 2024 Adrienne Hirsch MD Other Provider Active Start : October 21, 2024 Dr. Mike Pan MD Other Provider Active St art: October 21, 2024 Dr. Otilia Simons MD Other Provider Active Start : October 21, 2024 Dr. Carly Krishnamurthy MD Other Provider Active Sta rt: October 21, 2024 Dr. Bianca Henderson MD Other Provider Active Start: October 21, 2024 Dr. Ge Goldsmith MD Other Provider Active St art: October 21, 2024 Dr. Dinesh Mendiola MD Other Provider Active Star t: October 21, 2024 Dr. Dominick Sterling MD Other Provider Active St art: October 21, 2024 Dr. Kiley Myrick MD Other Provider Active Start: October 21, 2024 Taj Mendiola MD Other Provider Active Start: October 21, 2024 Dr. Ej Recio DO Attending Provider Active Start: October 21, 2024 Dr. Ej Recio DO Other Provider Active S tart: October 21, 2024 Team Status: Active Member Role/Relationship Status Dates Dr. Lowell Malik MD Primary Care Provider Active Start: October 29, 2024 Dr. Ej Recio DO Attending Provider Active Start: October 29, 2024 Dr. Ej Recio DO Referring Provider Active Start: October 29, 2024 Team Status: Active Member Role/Relationship Status Dates Dr. Lowell Malik MD Primary Care Provider Active Start: October 29, 2024 Dr. Canelo Garcia MD Attending Provider Active S tart: October 29, 2024 Dr. Ej Recio DO Referring Provider Active Start: October 29, 2024 Team Status: Inactive Member Role/Relationship Status Dates Dr. Lowell Malik MD Primary Care Provider Active Start: October 29, 2024 End: October 29, 2024 Dr. Lowell Malik MD Referring Provider Active Start: October 29, 2024 End: October 29, 2024 Anali Park HOT BILLET SHEAR OPERATOR, HOT BILLET SHEAR OPERATOR-C Attending Provider Active Start: October 29, 2024 End: October 29, 2024 Team Status: Inactive Member Role/Relationship Status Dates Dr. Lowell Malik MD Primary Care Provider Active Start: November 02, 2024 End: November 02, 2024 Dr. Lowell Malik MD Referring Provider Active Start: November 02, 2024 End: November 02, 2024 Dustin Mosqueda MD Attending Provider Active St art: November 02, 2024 End: November 02, 2024 Team Status: Inactive Member Role/Relationship Status Dates Dr. Lowell Malik MD Primary Care Provider Active Start: November 02, 2024 End: November 02, 2024 Dr. Canelo Garcia MD Attending Provider Active S tart: November 02, 2024 End: November 02, 2024 Team Status: Inactive Member Role/Relationship Status Dates Dr. Lowell Malik MD Primary Care Provider Active Start: November 24, 2024 End: November 24, 2024 Dr. Lowell Malik MD Referring Provider Active Start: November 24, 2024 End: November 24, 2024 ALYSSA Couch Attending Provider Active Star t: November 24, 2024 End: November 24, 2024 Team Status: Inactive Member Role/Relationship Status Dates Dr. Lowell Malik MD Primary Care Provider Active Start: December 01, 2024 End: December 01, 2024 ALYSSA Couch Attending Provider Active Star t: December 01, 2024 End: December 01, 2024 ALYSSA Couch Referring Provider Active Star t: December 01, 2024 End: December 01, 2024 Team Status: Active Member Role/Relationship Status Dates Dr. Lowell Malik MD Primary Care Provider Active Start: December 01, 2024 Dr. Wilberto Doshi MD Attending Provider Active S tart: December 01, 2024 ALYSSA Couch Referring Provider Active Star t: December 01, 2024 Team Status: Inactive Member Role/Relationship Status Dates Dr. Lowell Malik MD Primary Care Provider Active Start: January 18, 2025 End: January 18, 2025 Dr. Lowell Malik MD Referring Provider Active Start: January 18, 2025 End: January 18, 2025 Dr. Canelo Garcia MD Attending Provider Active S tart: January 18, 2025 End: January 18, 2025 Sales Mgr Relationship Specialty Start Date End Date Maria Malik MD [address] [place] [address] PCP - General Family Medicine 12/20/24 Team Status: Inactive Member Role/Relationship Status Dates Dr. Lowell Malik MD Primary Care Provider Active Start: January 18, 2025 End: January 18, 2025 Dr. Canelo Garcia MD Attending Provider Active S tart: January 18, 2025 End: January 18, 2025 Dr. Canelo Garcia MD Referring Provider Active S tart: January 18, 2025 End: January 18, 2025 <item><item><item> Privacy Markings (unrecogniz ed section and content) Section Author: Deann Freeman PROHIBITION ON REDISCLOSURE OF CONFIDENTIAL INFORMATION This notice accompanies a disclosure of information concerning a client made to you with the consent of such client. Section Author: Deann Freeman PROHIBITION ON REDISCLOSURE OF CONFIDENTIAL INFORMATION This notice accompanies a disclosure of information concerning a client made to you with the consent of such client. Section Author: Deann Freeman PROHIBITION ON REDISCLOSURE OF CONFIDENTIAL INFORMATION This notice accompanies a disclosure of information concerning a client made to you with the consent of such client. Goals (unrecognized section and content) Goals may be documented in a n alternate sectionGoals may be documented in an alternate sectionGoals may be documented in an alternate section Source Comments (unrecognize d section and content) In the event this informatio n is protected by the Federal Confidentiality of Alcohol and Drug Abuse Patient Records regulations: The Federal rules restrict any use of the information to criminally investigate or prosecute any alcohol or drug abuse patient.[facility] the event this information is protected by the Federal Confidentiality of Alcohol and Drug Abuse Patient Records regulations: The Federal rules restrict any use of the information to criminally investigate or prosecute any alcohol or drug abuse patient.[facility] the event this information is protected by the Federal Confidentiality of Alcohol and Drug Abuse Patient Records regulations: The Federal rules restrict any use of the information to criminally investigate or prosecute any alcohol or drug abuse patient.[facility] the event this information is protected by the Federal Confidentiality of Alcohol and Drug Abuse Patient Records regulations: The Federal rules restrict any use of the information to criminally investigate or prosecute any alcohol or drug abuse patient.[facility] the event this information is protected by the Federal Confidentiality of Alcohol and Drug Abuse Patient Records regulations: The Federal rules restrict any use of the information to criminally investigate or prosecute any alcohol or drug abuse patient.[facility] FOR RECORDS PERTAINING TO PATIENTS WHO ARE OR HAVE BEEN ENROLLED IN A CHEMICAL DEPENDENCY/SUBSTANCEABUSE PROGRAM, SOME INFORMATION MAY BE OMITTED. This clinical summary was aggregated from multiple sources. Caution should be exercised in using it in the provision of clinical care. This summary normalizes information from multiple sources, and as a consequence, information in this document may materially change the coding, format and clinical context of patient data. In addition, data may be omitted in some cases. CLINICAL DECISIONS SHOULD BE BASED ON THE PRIMARY CLINICAL RECORDS. [facility] [employer] [facility]. provides no warranty or guarantee of the accuracy or completeness of information in this document.
--- NOTE | 2025-02-07 09:47 | CL.IE_ITS ---
Patient: ASHLEY LOPEZ Study Date: 01/27/2025 Performing: Canelo Gacria MD : 1945 Age: 79 Gender: male PROCEDURES PERFORMED LP01-(83246)INSERTION OF LOOP RECORDER INDICATIONS Cryptogenic stroke PROCEDURE DETAILS The patient was brought to the Catheterization Lab in the postabsorptive nonsedated state. Informed consent was obtained prior to the procedure. Local anesthetic was given subcutaneously to the left upper chest area with Lidocaine 2%. Incision was made to the left upper chest. ICM Loop Recorder was inserted. ICM Loop Recorder was not capturing properly, device repositioned. Local anesthetic was given subcutaneously to the left upper chest area with Lidocaine 2%. Incision was made to the left upper chest. ICM Loop Recorder was reinserted. ICM Loop Recorder was not capturing properly, device repositioned. Local anesthetic was given subcutaneously to the left upper chest area with Lidocaine 2%. Incision was made to the left upper chest. ICM Loop Recorder was reinserted. ICM Loop Recorder was removed. Incision was made to the left upper chest. ICM Loop Recorder was reinserted. ICM Loop Recorder was tested and was capturing appropriately.. The patient tolerated the procedure well. Estimated Blood Loss: 10 ml's IMPLANTED / EX-PLANTED DEVICES IMPLANTED DEVICE(S): ICM Loop Recorder - Business Intern: [employer], Model # M312 , Serial # [id number] DEVICE PARAMETERS CONCLUSIONS / RECOMMENDATIONS Device Conclusions: Successful implantation of a patient activated loop recorder. Device Recommendations: Follow up with Primary Care Physician PROCEDURE MEDICATIONS Versed 1 mg IV Versed 1 mg IV Antibiotic given in appropriate timeframe. Clindamycin 900 mg IV 01/27/2025 07:59:08 Signed By Canelo Garcia MD On 01/27/2025 09:28:22 Canelo Garcia MD
== END 2025-01-27 10:30 | disposition home or self-care (01) ==
PROVIDERS: PCP Family Medicine; Referring Provider Internal Medicine Cardiovascular Disease; Visit Provider Internal Medicine Cardiovascular Disease
DX: I25.10 Atherosclerotic heart disease of native coronary artery without angina pectoris (principal); Z95.1 Presence of aortocoronary bypass graft; R94.39 Abnormal result of other cardiovascular function study; I10 Essential (primary) hypertension; E78.2 Mixed hyperlipidemia; I25.2 Old myocardial infarction; I65.23 Occlusion and stenosis of bilateral carotid arteries; F32.A Depression, unspecified; K21.9 Gastro-esophageal reflux disease without esophagitis; N28.9 Disorder of kidney and ureter, unspecified; G62.9 Polyneuropathy, unspecified; G47.33 Obstructive sleep apnea (adult) (pediatric); Z86.73 Personal history of transient ischemic attack (TIA), and cerebral infarction without residual deficits; Z79.82 Long term (current) use of aspirin; Z79.899 Other long term (current) drug therapy
CPT/HCPCS: 33285; 99152; 99153

== ENCOUNTER → 2025-06-06 | Outpatient (CLI) | payer MEDICARE, SELFPAY ==
--- NOTE | 2025-06-06 08:11 | CDU_ITS ---
Reason For Study Reason For Study: Rt ICA Stenosis, s/p Lt CEA Rt. Velocities/BP Lt. Velocities/BP Prox CCA 80/9 cm/sec. Prox CCA 96/14 cm/sec. Mid CCA 86/11 cm/sec. Mid CCA 107/18 cm/sec. Dist CCA 85/19 cm/sec. Dist CCA 92/17 cm/sec. Prox ICA 286/38 cm/sec. Prox ICA 181/35 cm/sec. Mid ICA 193/32 cm/sec. Mid ICA 170/41 cm/sec. Dist ICA 131/17 cm/sec. Dist ICA 97/22 cm/sec. Rt. ICA/CCA = 3.32. Lt. ICA/CCA = 1.7. Prox ECA 125/3 cm/sec. Prox ECA 153/10 cm/sec. Rt. Vert. 68/9 cm/sec. Lt. Vert. 63/8 cm/sec. Right Extracranial There is intimal thickening but no significant atherosclerotic plaque noted in the right common carotid artery. There is heterogeneous, irregular atherosclerotic plaque noted in the right internal carotid artery. There is heterogeneous, irregular atherosclerotic plaque noted in the right external carotid artery. Antegrade flow is noted in the right vertebral artery. Left Extracranial There is heterogeneous, irregular atherosclerotic plaque noted in the left common carotid artery. There is heterogeneous, irregular atherosclerotic plaque noted in the left internal carotid artery. There is heterogeneous, irregular atherosclerotic plaque noted in the left external carotid artery. Antegrade flow is noted in the left vertebral artery. Procedure Carotid Duplex 11302. This is a Carotid Duplex examination using B-mode, color flow and specral Doppler. Prelim given to September. Exam performed in department. VL/Carotid Duplex Ultrasound Interpretation Summary Severe (>70%) stenosis right extracranial internal carotid. Moderate (50-69%) stenosis left extracranial internal carotid. Patent and antegrade vertebrals bilaterally. Ordering Physician: Radha Salazar Referring Physician: Brooks Johnson Performed By: Breonna Clark, GORAN, RVT
== END | disposition home or self-care (01) ==
LOC: CVS 08:11
PROVIDERS: PCP Family Medicine; Referring Provider Physician Assistant; Visit Provider Physician Assistant
DX: I65.23 Occlusion and stenosis of bilateral carotid arteries (principal)
CPT/HCPCS: 93880